=== PATIENT | male | born 1970 | race Caucasian/White ===

== ENCOUNTER 2018-03-23 08:15 | Outpatient (CLI) | payer MEDICARE, MEDICAID, SELFPAY ==
[2018-03-23 09:55] LABS: Abs Immature Grans 0.01 k/cumm (0.0-0.09); Absolute Basophil Count 0.03 k/cumm (0.0-0.2); Absolute Eosinophil Count 0.26 k/cumm (0.0-0.7); Absolute Lymphocyte Count 2.12 k/cumm (1.2-3.4); Absolute Monocyte Count 0.71 k/cumm (0.11-0.7); Absolute Neutrophil Count 4.84 k/cumm (1.2-6.7); Basophils % 0.4; Eosinophils % 3.3; HGB 16.7 g/dL (13.5-17.5); Immature Grans % 0.1; Lymphocytes % 26.6; Mean Corp. HGB Concentration 34.1 g/dL (32.0-36.0); Mean Corpuscular Volume 96.8 fL (80-95); Mean Platelet Volume 9.5 fL (8.0-11.0); Monocytes % 8.9; Neutrophils % 60.7; Platelet Count 252 x1000/uL (130-400); RBC 5.06 m/cumm (4.50-6.00); RBC Distribution Width 13.5 % (11.8-14.1); White Blood Cell Count 7.97 k/cumm (4.4-10.8)
[2018-03-23 10:30] LABS: ALT 45 U/L (12-78); AST 19 U/L (15-37); Albumin 4.2 g/dL (3.4-5.0); Alkaline Phosphatase 65 U/L (46-116); Anion Gap 9.8 mmol/L (3-11); BUN 19 mg/dL (7-18); Bilirubin, Total 0.7 mg/dL (0.2-1.0); CO2 24.2 mmol/L (21.0-32.0); CREATININE 1.03 mg/dL (0.70-1.30); Chloride 102 mmol/L (98-107); Glucose 119 mg/dL (70-100); Potassium 4.2 mmol/L (3.5-5.1); Sodium 136 mmol/L (136-145); Total Protein 7.2 g/dL (6.4-8.2)
[2018-03-24 11:11] LABS: Syphilis Serology (RPR) Negative (Negative)
[2018-03-25 08:49] LABS: CD3 69 % (62-87); CD4 32 % (35-63); CD8 36 % (10-35)
[2018-03-25 21:24] LABS: HBV DNA Detect/Quant, PCR Undetected IU/mL (Undetected)
[2018-03-26 14:50] LABS: HIV-1 RNA Quantification <20 copies/mL (UNDECT)
== END 2018-03-23 08:35 ==
PROVIDERS: PCP Physician Assistant Medical; Visit Provider Nurse Practitioner Family
DX: B20 Human immunodeficiency virus [HIV] disease (principal); Z79.899 Other long term (current) drug therapy; B18.1 Chronic viral hepatitis B without delta-agent; B18.2 Chronic viral hepatitis C
CPT/HCPCS: 36415; 80053; 87517; 87536; 85025; 86359; 86360; 86592

== ENCOUNTER 2018-05-22 15:45 | Outpatient (CLI) | payer MEDICARE, MEDICAID, SELFPAY ==
--- NOTE | 2018-05-22 16:33 | W.CCNOTE ---
Date of service: 05/22/18 Time of Service: 16:33 Comprehensive Care Clinic Note Note: [facility] [address] [place] [address] Comprehensive Care Clinic [facility] Follow Up Visit Name: Guanakito Cedillo Date of : 1970 Date of Service: 05/22/2018 SUBJECTIVE: Guanakito is here for F/U and to get an injection of flu vaccine. Over all he is feeling well and taking his medications as prescribed. He was last seen here on March and had blood work done on 03/23/18. HIV VL <20, HBV VL <10, no HCV VL was repeated ? last one was <20 on 02/22/17. CD4 count this March was 676 with a % of 32. He is not having any adverse SEs from the medications. He is taking his BP meds and has had F/U at his PCPs office. He also needa hepatitis A vaccine as he never mounted immunity to HAV and is chronic active HBV. He was + for HCV but has had an undetectable viral load for years now. No Tx Hx for the HCV. ROS: General: Sleep is good, weight is stable, denies night sweats. Appetite is ?too good.? HEENT: No sore throat or nasal congestion Chest: Has a smokers cough but is smoking less, no about ? ppd. CARDIAC: No palpitations, denies chest pain. 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 (this was the result of years of Fluconazole.) Psych: Still distraught about underbidding his jobs and still not getting paid on time by some customers. Blames himself. Is taking one non-paying person to court. Stressful. Denies HI/SI. Update Past Medical/Surgical/Psychiatric History: 05/22/2017 had a Hemorrhoidectomy by Dr. Martínez Lemons at [facility] ? path negative for dysplasia. Allergies/Sensitivities: NKDA Current Medications: - Odefsey (rilpivirine, emtricitabine, tenofovir alafenamide fumarate) 25/200/25 mg a day po - Isentress HD (raltegravir) 600mg ? 2 tabs daily po - Zestaril (lisinopril) 10 mg po daily - Cardura (doxazosin) 4mg po daily - Vitamin D3 400 units daily Social History: Lives with his custodial partner, Fernando, in the home they own in [place], [place]. 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 Has a menagerie of animals including 2 dogs, a cat, a cockatiel and an indoor duck and chicken, Denise who has one leg, and many outdoor ducks and chickens. Income: $34,000/year for family of 2 Health Insurance: [place] Medicare, Medicaid, AMAP, DCAP, No other payment source, has had no Issues Substance Abuse History: in the very remote past Tobacco: Smoker: + Type: cigarettes, Amount: keeping it down to 1/2 ppd, was 1 ? ppd MJ: Smoke/Vap/Edibles: vaping MJ ETOH: Weekly once or twice, Type: Amount: rare now Illicit Drug Use: None Immunization History: Tetanus (TDAP) given on 10/02/2011 Hepatitis A #1 on 06/23/2002, #2 on 09/28/2002, #3 on 03/19/2013 ? no antibody formation ? needs booster and given today Flu Vaccine: gets yearly - needs for this season and given today Pneumovax: #1 on 04/24/2001 #2 on 04/22/2007; Prevnar 13 #1 given 06/28/2015 Other: He would be eligible for the Menactra and Shingrix and is amenable to getting these. Health Maintenance/ID Screening: PPD: last neg was 03/12/2017. CXR: 06/08/2012 F/U nodule and apical scarring RUL - stable. Chest CT scan done on 05/23/2011 w guided Bx of nodule ? path: AFB but cultures negative per Dr. Franz?s notes. PAP: Anal: none Mammograms: none Colonoscopy: done on 09/12/[address] Bharat Iniguez ? path: 1 tiny leiomyoma & 1 Hyperplastic polyp. F/U due 2019 GC/Chlamydia Screening: neg 11/15/2015 OBJECTIVE Temp: 98.2 Pulse: 72 Resp: 16 BP: 126/76 General: AINAD, WT:180# Skin: clear ? professional tattoos Eyes: non icteric Cardiac: RRR, No MCRG Chest/Lungs: Few wheezes at the bases. No crackles. Sounds heard in all lobes. Abdomen: Soft, Nd, NT, No OGM Extremities: No edema Neuro: Gait strong and steady Psych: AAOx4, speech clear and coherent, eye contact good. ASSESSMENT/PLAN: 1. HIV/AIDS ? Lab work stable w good CD4 and undetectable viral load. No change in medications. Refills called to the pharmacy. F/U in 3 months. 2. 2. HM ? Flu and Hepatitis A vaccine today. Influenza [facility] Lot # [id number], exp 01/10/19, IM RA HAV vaccine [facility] Lot # [id number], exp 06/03/20 [place] visit scheduled: Due early in 2018 Lab Work: Will be due in 3 months. ASO referral: Has established a relationship w [facility] Provider of Care: Hanane Pollock NP
--- NOTE | 2018-05-25 16:34 | CCCE_ITS ---
Date of service: 05/22/18 Time of Service: 16:33 Comprehensive Care Clinic Note Note: [facility] [address] [place] [address] [facility] Follow Up Visit Name: Guanakito Cedillo Date of : 1970 Date of Service: 05/22/2018 SUBJECTIVE: Guanakito is here for F/U and to get an injection of flu vaccine. Over all he is feeling well and taking his medications as prescribed. He was last seen here on March and had blood work done on 03/23/18. HIV VL <20, HBV VL < 10, no HCV VL was repeated ? last one was <20 on 02/22/17. CD4 count this March was 676 with a % of 32. He is not having any adverse SEs from the medications. He is taking his BP meds and has had F/U at his PCPs office. He also needa hepatitis A vaccine as he never mounted immunity to HAV and is chronic active HBV. He was + for HCV but has had an undetectable viral load for years now. No Tx Hx for the HCV. ROS: General: Sleep is good, weight is stable, denies night sweats. Appetite is ?too good.? HEENT: No sore throat or nasal congestion Chest: Has a smokers cough but is smoking less, no about ? ppd. CARDIAC: No palpitations, denies chest pain. 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 (this was the result of years of Fluconazole.) Psych: Still distraught about underbidding his jobs and still not getting paid on time by some customers. Blames himself. Is taking one non-paying person to court. Stressful. Denies HI/SI. Update Past Medical/Surgical/Psychiatric History: 05/22/2017 [address] a [address]ctomy by [address] Martínez Lemons at [facility] ? path negative for dysplasia. Allergies/Sensitivities: NKDA Current Medications: - Odefsey (rilpivirine, emtricitabine, tenofovir alafenamide fumarate) 25/200/ 25 mg a day po - Isentress HD (raltegravir) 600mg ? 2 tabs daily po - Zestaril (lisinopril) 10 mg po daily - Cardura (doxazosin) 4mg po daily - Vitamin D3 400 units daily Social History: Lives with his [facility] partner, Fernando, in the home they own in [place], [place]. 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 Has a menagerie of animals including 2 dogs, a cat, a cockatiel and an indoor duck and chicken, Denise who has one leg, and many outdoor ducks and chickens. Income: $34,000/year for family of 2 Health Insurance: [place] Medicare, Medicaid, AMAP, DCAP, No other payment source, has had no Issues Substance Abuse History: in the very remote past Tobacco: Smoker: + Type: cigarettes, Amount: keeping it down to 1/2 ppd, was 1 ? ppd MJ: Smoke/Vap/Edibles: vaping MJ ETOH: Weekly once or twice, Type: Amount: rare now Illicit Drug Use: None Immunization History: Tetanus (TDAP) given on 10/02/2011 Hepatitis A #1 on 06/23/2002, #2 on 09/28/2002, #3 on 03/19/2013 ? no antibody formation ? needs booster and given today Flu Vaccine: gets yearly - needs for this season and given today Pneumovax: #1 on 04/24/2001 #2 on 04/22/2007; Prevnar 13 #1 given 06/28/2015 Other: He would be eligible for the Menactra and Shingrix and is amenable to getting these. Health Maintenance/ID Screening: PPD: last neg was 03/12/2017. CXR: 06/08/2012 F/U nodule and apical scarring RUL - stable. Chest CT scan done on 05/23/2011 w guided Bx of nodule ? path: AFB but cultures negative per Dr. Franz?s notes. PAP: Anal: none Mammograms: none Colonoscopy: done on 09/12/[address] Bharat Iniguez ? path: 1 tiny leiomyoma & 1 Hyperplastic polyp. F/U due 2019 GC/Chlamydia Screening: neg 11/15/2015 OBJECTIVE Temp: 98.2 Pulse: 72 Resp: 16 BP: 126/76 General: AINAD, WT:180# Skin: clear ? professional tattoos Eyes: non icteric Cardiac: RRR, No MCRG Chest/Lungs: Few wheezes at the bases. No crackles. Sounds heard in all lobes. Abdomen: Soft, Nd, NT, No OGM Extremities: No edema Neuro: Gait strong and steady Psych: AAOx4, speech clear and coherent, eye contact good. ASSESSMENT/PLAN: 1. HIV/AIDS ? Lab work stable w good CD4 and undetectable viral load. No change in medications. Refills called to the pharmacy. F/U in 3 months. 2. 2. HM ? Flu and Hepatitis A vaccine today. Influenza [facility] Lot # [id number], exp 01/10/19, IM RA HAV vaccine [facility] Lot # [id number], exp 06/03/20 [place] visit scheduled: Due early in 2018 Lab Work: Will be due in 3 months. ASO referral: Has established a relationship w [facility] Provider of Care: Hanane Pollock NP
== END 2018-05-22 16:05 ==
PROVIDERS: PCP Physician Assistant Medical; Visit Provider Nurse Practitioner Family
DX: B20 Human immunodeficiency virus [HIV] disease (principal); Z79.899 Other long term (current) drug therapy; Z23 Encounter for immunization
CPT/HCPCS: 90471; 90472; 90632; 90686; 99213

== ENCOUNTER 2018-08-27 08:17 | Outpatient (CLI) | payer MEDICARE, MEDICAID, SELFPAY ==
[2018-08-27 08:58] LABS: Abs Immature Grans 0.01 k/cumm (0.0-0.09); Absolute Basophil Count 0.04 k/cumm (0.0-0.2); Absolute Eosinophil Count 0.24 k/cumm (0.0-0.7); Absolute Lymphocyte Count 2.17 k/cumm (1.2-3.4); Absolute Monocyte Count 0.68 k/cumm (0.11-0.7); Absolute Neutrophil Count 5.51 k/cumm (1.2-6.7); Basophils % 0.5; Eosinophils % 2.8; HCT 47.5 % (40.0-50.0); HGB 16.2 g/dL (13.5-17.5); Immature Grans % 0.1; Lymphocytes % 25.1; Mean Corp. HGB Concentration 34.1 g/dL (32.0-36.0); Mean Corpuscular Hemoglobin 33.4 pg (27.0-33.0); Mean Corpuscular Volume 97.9 fL (80-95); Mean Platelet Volume 9.4 fL (8.0-11.0); Monocytes % 7.9; Neutrophils % 63.6; Platelet Count 191 x1000/uL (130-400); RBC 4.85 m/cumm (4.50-6.00); RBC Distribution Width 13.8 % (11.8-14.1); White Blood Cell Count 8.65 k/cumm (4.4-10.8)
[2018-08-27 10:14] LABS: ALT 51 U/L (12-78); AST 20 U/L (15-37); Albumin 4.1 g/dL (3.4-5.0); Alkaline Phosphatase 65 U/L (46-116); Anion Gap 9.5 mmol/L (3-11); BUN 21 mg/dL (7-18); Bilirubin, Total 0.7 mg/dL (0.2-1.0); CO2 26.5 mmol/L (21.0-32.0); CREATININE 1.07 mg/dL (0.70-1.30); Calcium 8.9 mg/dL (8.5-10.1); Chloride 104 mmol/L (98-107); Cholesterol 192 mg/dL (50-200); GGT 35 U/L (15-85); Glucose 99 mg/dL (70-100); HDL Cholesterol 38 mg/dL (40-60); LDL CHOLESTEROL 126 mg/dL (<100); Potassium 4.6 mmol/L (3.5-5.1); Sodium 140 mmol/L (136-145); Total Protein 7.2 g/dL (6.4-8.2); Triglyceride 153 mg/dL (30-150)
[2018-08-28 15:38] LABS: CD3 73 % (62-87); CD4 33 % (35-63); CD8 39 % (10-35)
[2018-08-31 15:27] LABS: HIV-1 RNA Quantification <20 copies/mL (UNDECT)
== END 2018-08-27 08:37 ==
PROVIDERS: PCP Physician Assistant Medical; Visit Provider Internal Medicine Infectious Disease
DX: B20 Human immunodeficiency virus [HIV] disease (principal); B18.2 Chronic viral hepatitis C; B18.1 Chronic viral hepatitis B without delta-agent; Z79.899 Other long term (current) drug therapy
CPT/HCPCS: 36415; 80053; 80061; 83721; 87536; 82977; 85025; 86359; 86360

== ENCOUNTER 2018-08-31 09:00 | Outpatient (CLI) | payer MEDICARE, MEDICAID, SELFPAY | END 2018-08-31 09:20 | PROVIDERS: PCP Physician Assistant Medical; Referring Provider Nurse Practitioner Family; Visit Provider Internal Medicine Infectious Disease | DX: B20 Human immunodeficiency virus [HIV] disease (principal); B18.2 Chronic viral hepatitis C; B18.1 Chronic viral hepatitis B without delta-agent; I10 Essential (primary) hypertension; F17.210 Nicotine dependence, cigarettes, uncomplicated | CPT/HCPCS: 99215 ==

== ENCOUNTER 2018-10-27 10:05 | Outpatient (REF) | payer MEDICARE, MEDICAID, SELFPAY ==
[2018-10-27 22:08] LABS: Cholesterol 174 mg/dL (50-200); Glucose 106 mg/dL (70-100); HDL Cholesterol 28 mg/dL (40-60); LDL CHOLESTEROL 106 mg/dL (<100); Triglyceride 215 mg/dL (30-150)
== END 2018-10-27 10:25 ==
LOC: NCHCN 10:05
PROVIDERS: PCP Physician Assistant Medical; Visit Provider Nurse Practitioner Family
DX: I10 Essential (primary) hypertension (principal); E78.5 Hyperlipidemia, unspecified; B18.2 Chronic viral hepatitis C; B18.1 Chronic viral hepatitis B without delta-agent; B20 Human immunodeficiency virus [HIV] disease; F17.210 Nicotine dependence, cigarettes, uncomplicated
CPT/HCPCS: 80061; 82947; 83721

== ENCOUNTER 2019-02-24 15:51 | Outpatient (CLI) | payer MEDICARE, MEDICAID, SELFPAY ==
[2019-02-24 19:46] LABS: ALT 49 U/L (12-78); AST 18 U/L (15-37); Albumin 4.4 g/dL (3.4-5.0); Alkaline Phosphatase 77 U/L (46-116); Anion Gap 12.6 mmol/L (3-11); BUN 22 mg/dL (7-18); Bilirubin, Total 0.5 mg/dL (0.2-1.0); CO2 23.4 mmol/L (21.0-32.0); CREATININE 1.18 mg/dL (0.70-1.30); Chloride 104 mmol/L (98-107); Glucose 96 mg/dL (70-100); Potassium 4.4 mmol/L (3.5-5.1); Sodium 140 mmol/L (136-145); Total Protein 7.4 g/dL (6.4-8.2)
[2019-02-27 12:59] LABS: HBV DNA Detect/Quant, PCR Undetected IU/mL (Undetected)
== END 2019-02-24 16:11 ==
PROVIDERS: PCP Physician Assistant Medical; Visit Provider Internal Medicine Infectious Disease
DX: B20 Human immunodeficiency virus [HIV] disease (principal); B18.1 Chronic viral hepatitis B without delta-agent; Z79.899 Other long term (current) drug therapy
CPT/HCPCS: 36415; 80053; 87517; 87536

== ENCOUNTER 2019-02-25 11:45 | Outpatient (CLI) | payer MEDICARE, MEDICAID, SELFPAY ==
[2019-03-01 16:39] LABS: HIV-1 RNA Quantification Undetected copies/mL (UNDECT)
== END 2019-02-25 12:05 ==
PROVIDERS: PCP Internal Medicine Infectious Disease; Visit Provider Internal Medicine Infectious Disease
DX: B20 Human immunodeficiency virus [HIV] disease (principal); B18.1 Chronic viral hepatitis B without delta-agent; Z79.899 Other long term (current) drug therapy
CPT/HCPCS: 87536

== ENCOUNTER 2019-03-01 09:14 | Outpatient (CLI) | payer MEDICARE, MEDICAID, SELFPAY | END 2019-03-01 09:34 | PROVIDERS: PCP Internal Medicine Infectious Disease; Referring Provider Nurse Practitioner Family; Visit Provider Internal Medicine Infectious Disease | DX: B20 Human immunodeficiency virus [HIV] disease (principal); B18.1 Chronic viral hepatitis B without delta-agent; B18.2 Chronic viral hepatitis C; Z79.899 Other long term (current) drug therapy | CPT/HCPCS: 99215 ==

== ENCOUNTER 2019-03-29 09:10 | Outpatient (REF) | payer MEDICARE, MEDICAID, SELFPAY ==
[2019-03-29 22:22] LABS: Anion Gap 10.8 mmol/L (3-11); BUN 20 mg/dL (7-18); CO2 24.2 mmol/L (21.0-32.0); CREATININE 1.06 mg/dL (0.70-1.30); Calcium 8.9 mg/dL (8.5-10.1); Chloride 105 mmol/L (98-107); Glucose 101 mg/dL (70-100); Potassium 4.8 mmol/L (3.5-5.1); Sodium 140 mmol/L (136-145)
== END 2019-03-29 09:30 ==
LOC: NCHCN 09:10
PROVIDERS: PCP Internal Medicine Infectious Disease; Visit Provider Nurse Practitioner Family
DX: I10 Essential (primary) hypertension (principal)
CPT/HCPCS: 80048

== ENCOUNTER → 2019-04-01 14:18 | Outpatient (BNVA) | payer MEDICARE, MEDICAID, SELFPAY | PROVIDERS: PCP Nurse Practitioner Family; Referring Provider Internal Medicine Infectious Disease; Visit Provider Physical Therapy Assistant | DX: Z12.11 Encounter for screening for malignant neoplasm of colon (principal); I10 Essential (primary) hypertension ==

== ENCOUNTER 2019-04-23 06:37 | Day surgery (SDC) | payer MEDICARE, MEDICAID, SELFPAY ==
[2019-04-23 07:00] VITALS: BP 152/102; PULSE 73; RESP 16; TEMP 36.5; O2SAT 97
--- NOTE | 2019-04-23 08:10 | W.PM.DSUDISC ---
Discharge Plan Disposition Patient Disposition: HOME Condition: Good Discharge Details Reason For Visit: Colonoscopy Attending Provider: Bronwyn Herring Primary Care Provider: Sabrina Jerome Home Meds and New Rx's Prescriptions: Discontinued polyethylene glycol 3350 17 gram/dose powder 238 g PO ONCE Qty: 238 RF: 0 bisacodyl [Dulcolax (bisacodyl)] 5 mg tablet,delayed release (DR/EC) 5 mg PO ONCE Qty: 4 RF: 0 No Action Odefsey 1 EACH tablet 1 ea PO DAILY RF: 0 lisinopril 10 mg tablet 5 mg PO DAILY RF: 0 Isentress 400 MG tablet 800 mg PO DAILY RF: 0 ibuprofen 600 MG tablet 600 mg PO Q6H PRN PRNQty: 30 RF: 1 Discharge Instructions Additional Instructions: Findings: Your colonoscopy was normal. Follow up: Plan for routine screening in 10 years unless new symptoms arise. Please call if you develop: fevers >101.5 Nausea or Vomiting Abdominal pain that is not transient DAY SURGERY UNIT POST COLONOSCOPY INSTRUCTIONS 1. Because there will be medication in your system for the next 24 hours, you may feel a little sleepy. Your coordination will be affected. Therefore: a. Do not drive or operate dangerous equipment for 24 hours. b. Do not drink alcohol beverages for 24 hours (not even beer). c. Plan to go home and rest for the day. 2. Generally there are no restrictions on your activity after a day or so has gone by, but you may feel a bit fatigued for a few days. 3 After you arrive home you may have a light meal and return to a normal diet as you can tolerate it without feeling sick to your stomach. 4. After surgery, you may feel pain or discomfort. This should be only transient, but if it persists please contact your doctor. 5. If there are any questions regarding the findings of your procedure, please feel free to contact your doctor. 6. If you are unable to contact your doctor with a problem, contact the hospital at [phone]. 7. Continue all your regular medications unless directed otherwise. I understand the above instructions and have no questions. Signature of Patient or Responsible Adult Escort Date/Time Name of Responsible Adult Escort Signature of Nurse Date/Time Activity:: Activity as Tolerated Diet:: As Tolerated Discharge Orders Discharge Orders: Discharge Order (Routine); Ordered 04/23/19 Ordered By: Bronwyn Herring DS: Diagnosis Discharge Diagnosis (1) Colon cancer screening: Status: Acute
[2019-04-23] MEDS: Lactated Ringers 1,000 ML 80 ML IV (08:12)
[2019-04-23 09:17] VITALS: BP 145/89; PULSE 62; RESP 18; TEMP 36.7; O2SAT 100
--- NOTE | 2019-04-23 10:45 | COLE_ITS ---
DATE OF PROCEDURE: April 23, 2019 PREOPERATIVE DIAGNOSIS: Screening. POSTOPERATIVE DIAGNOSIS: Normal colon. PROCEDURE: Colonoscopy. SURGEON: Bronwyn Herring M.D. ANESTHESIA: General. INDICATIONS: This is a 49-year-old man who presents for routine colonoscopy. His last colonoscopy i 2008 showed a tiny leiomyoma and a hyperplastic polyp. He has also had an internal hemorrhoid band ing performed. PROCEDURE: He was placed in the left Galeana position. Propofol was titrated to sedation. Digital rec kameron examination revealed no abnormalities. The scope was advanced to the cecum without difficulty. The ileocecal valve and appendiceal orifice were clearly identified. His prep was good. The scope w as slowly withdrawn with no abnormalities seen within the ascending, transverse, descending, sigmoid colon or rectum, including on retroflex view. He tolerated the procedure well and was stable to josie very. He will need a follow-up screening again in ten years, or sooner as symptoms indicate. cc: Sabrina Jerome N.P.
== END 2019-04-23 09:30 | disposition home or self-care (01) ==
PROVIDERS: PCP Nurse Practitioner Family; Visit Provider Surgery
PROC: 0DJD8ZZ Inspection of Lower Intestinal Tract, Via Natural or Artificial Opening Endoscopic (ICD-10-PCS; CPT 45378; principal; 2019-04-23 08:15)
DX: Z12.11 Encounter for screening for malignant neoplasm of colon (principal); I10 Essential (primary) hypertension; Z87.19 Personal history of other diseases of the digestive system
CPT/HCPCS: G0121

== ENCOUNTER 2019-04-30 12:55 | Outpatient (CLI) | payer MEDICARE, MEDICAID, SELFPAY ==
--- NOTE | 2019-04-30 13:19 | CCCE_ITS ---
Date of service: 04/30/19 Time of Service: 13:20
--- NOTE | 2019-04-30 13:19 | W.CCNOTE ---
Date of service: 04/30/19 Time of Service: 13:20
== END 2019-04-30 13:15 ==
PROVIDERS: PCP Nurse Practitioner Family; Visit Provider Nurse Practitioner Family
DX: B20 Human immunodeficiency virus [HIV] disease (principal); Z79.899 Other long term (current) drug therapy; R53.83 Other fatigue; Z23 Encounter for immunization
CPT/HCPCS: 90471; 90472; 90686; 99213

== ENCOUNTER 2019-05-17 12:49 | Outpatient (CLI) | payer MEDICARE, MEDICAID, SELFPAY ==
--- NOTE | 2019-05-18 15:12 | W.CCNOTE ---
Date of service: 05/17/19 Time of Service: 13:12 Comprehensive Care Clinic Note Note: [facility] Acute Visit Name: Guanakito Cedillo : Date: 05/17/2019 Subjective CC/HPI: Guanakito visited his dentist for regular checkup and cleaning and was told there was a suspicious lesion on the roof of his mouth. He has also been told there was a ?white spot? on the roof of the mouth about 6 months earlier by another dental practitioner. He was advised to have it valuated by a specialist and consider having it removed. Guanakito unfortunately has not been able to stop smoking but has reduced from 1 ? ppd to about 1 ppd. He has been smoking since he was a teen. Guanakito has been feeling well otherwise and is taking his HIV meds as ordered not having missed any doses. His last HIV Viral Load was undetectable and he has been undetectable for many years. His CD4 count was in the 600s last time checked with a good %. Allergies: SULFA, PCN ? rash, swelling. Chantix ? neurological side effects. Medications: Odefsey (txknrsaejfzxe-xlvrjszgfzt-ojndxdopv alafenam) 200mg/25mg/25mg tab 1 po daily, Isentress HD (raltegravir 600mg tab 2 po daily, doxazosin 4mg 1 po daily, Lisinopril 10 mg 1 po daily. ROS: Denies weight loss, fever, chills, rarely gets night sweats now (was more common years ago p HIV Dx), oral pain or sensation of swelling, difficulty swallowing, neck swelling or stiffness. No N/V/D, rashes, paresthesia, weakness. Has some dyspnea w extreme exertion and a smokers cough. No hemoptysis. Past Medical Hx: Dx w HIV, HBV and HCV in 2001 ? 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 HBV neg viral load w Tenofovir. HCV undetectable w/o treatment. Hyperplastic Rectal Polyp ? due and scheduled soon for F/U colo. Early Glaucoma and sees Ophthalmology yearly. HTN ? RXd x approx. 4 years. Surgical: Lip Lesion removed at [facility] in 2003 and Dx as ?irritated SK?. Social Hx: Lives with partner in their own home in [place], [place]. 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 His partner, Fernando, works in [place] and they have dogs, cats, chickens and ducks, no children. Fm Hx: HTN, Cancer Objective VS: Temp: 98.5 Pulse: 72 Resp: 16 BP: 136/80 PE: Face w symmetry -No lip lesion, there is a rice grain size, well circumscribed, pearly white nodular lesion in the mid left soft palette that is not removable without erythema or selling in the area. -No other oral lesions appreciated. -Uvula midline, gag intact, neck supple, no palpable cervical nodes. -Lungs w some rhonchi at the bases which clears with cough ? ow clear and heard in all lobes. Assessment/Plan -Rice size well circumscribed soft palette lesion needing further evaluation with probable removal and pathological examination in a long time smoker. Refer to ENT and will contact his PCP, fax this note and request a referral. An Appointment is set up with Dr. Leal for 06/14/2019 at 10:30AM. Guanakito is notified of the appointment. -Other medical problems ? No change in medications and he is not due for HIV F/U until after the first of the year. -Smoker ? we discussed again the need for smoking cessation and he is very aware of the risks. Has desires at times to quit but feels he cannot do it if his partner continues smoking and he is smelling it, even if Fernando doesn?t smoke in the house. He will continue to contemplate this and discuss their both quitting together for a better chance at success.
--- NOTE | 2019-05-18 15:29 | W.CCNOTE ---
Date of service: 04/30/19 Time of Service: 15:29 Comprehensive Care Clinic Note Note: [facility] [address] [place] [address] THIS IS THE NOTE FROM THE 04/30/2019 ENCOUNTER - the previous registration did not capture the note. [facility] Follow Up Visit Name: Guanakito Cedillo Date of : 1970 Date of Service: 04/30/2019 SUBJECTIVE: Guanakito is here today because he has felt fatigued and achy the past few days and he was due to get flu vaccine today. He is not sure he should get it. He is also due to have the first meningitis B vaccine. He states he has not had fever or chills but did have a night sweat last night. It is not unusual for him to have an isolated night sweat but since he was feeling ?punky? he thought he should be checked. He started a new job that is requiring 10 hour days 6 days a week. He has been doing this for the past two weeks and is feeling a bit worn out from it as it has been a long time since he has labored this long a stretch daily. He feels he is still building up to being in ?full shape for it?. 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 ROS: Some fatigue the last 2 days and took off work today to rest ? feels better already having slept in this morning. Denies fever, chills and has an isolated night sweat last night. No URI symptoms, has smokers cough but nothing new, no hemoptysis, no chest pain or palpitations, Denies N/V/D or other GI symptoms. No paresthesia, weakness, swelling, rash. Update Past Medical/Surgical/Psychiatric History: Nothing new. Says he needs to reschedule the colonoscopy he was to have had done soon. Allergies/Sensitivities: Sulfa, PCNs - Chantix - neuro reaction Current Medications: Odefsey (qakocjdhekllq-gcurhtxbtfg-ldtwfdvff alafenam) 200mg/25mg/25mg tab 1 po daily, Isentress HD (raltegravir 600mg tab 2 po daily, doxazosin 4mg 1 po daily, Lisinopril 10 mg 1 po daily. 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 Immunization History: Flu Vaccine: needs today Other: meningitis B ? to start today Health Maintenance/ID Screening: UTD except Colonoscopy: needs as due this year. OBJECTIVE Last viral load in February was undetectable Temp: 97.5 Pulse: 70 Resp: 16 BP: 132/80 General: INAD, AAOx4 Skin: W/D clear Eyes: non icteric Cardiac: RRR No MCRG Chest/Lungs: few scattered wheezes at bases that clear w deep breathing Abdomen: NABS, ND, NT Extremities: no edema Neuro: gait strong and steady ASSESSMENT: stable HIV disease, no evidence of infectious illness currently ? fatigue most likely due to increased work demands. Health maintenance. PLAN: No change in his antiretroviral meds or need for additional medications. Flu vaccine given in the RA and meningitis B vaccine in the left arm. He will need a second in the series of 2 meningitis vaccine when he returns for F/U at [facility] in August along with a second Singrix vaccine. 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
== END 2019-05-17 13:09 ==
PROVIDERS: PCP Nurse Practitioner Family; Visit Provider Nurse Practitioner Family
DX: B20 Human immunodeficiency virus [HIV] disease (principal); F17.210 Nicotine dependence, cigarettes, uncomplicated; K13.79 Other lesions of oral mucosa; Z79.899 Other long term (current) drug therapy
CPT/HCPCS: 99213

== ENCOUNTER 2019-06-14 11:48 | Outpatient (REF) | payer MEDICARE, MEDICAID, SELFPAY ==
--- NOTE | 2019-06-14 10:55 | ORMUBX_PTH ---
PATIENT: Guanakito Cedillo LOC: N U#:[id number] AGE/SX: 49/M ROOM: RE06/14/[address]: Santino Leal DO : 1970 BED: DIS: 06/14/2019 SPEC #: [id number] RECD: 06/14/19 18:29 STATUS: LUC REQ #: [id number] DANIEL: 06/14/19 10:[address]: Santino Leal DEPT: Surgical Specimen RECD BY: Tamika Beckett ENTERED: 06/14/19 18:30 SP TYPE: ORMUBX OTHR DR: Sabrina Jerome Tissues: 1 - MUCOSA, NOS Procedures: GROSS AND MICRO LEVEL 4 Comments: [id number]
== END 2019-06-14 12:08 ==
LOC: LBN 11:48
PROVIDERS: PCP Nurse Practitioner Family; Visit Provider Otolaryngology Otolaryngology/Facial Plastic Surgery
DX: K13.79 Other lesions of oral mucosa (principal); Z21 Asymptomatic human immunodeficiency virus [HIV] infection status
CPT/HCPCS: 88305

== ENCOUNTER 2019-08-11 07:00 | Outpatient (CLI) | payer MEDICARE, MEDICAID, SELFPAY ==
[2019-08-11 07:29] LABS: Abs Immature Grans 0.04 k/cumm (0.0-0.09); Absolute Basophil Count 0.07 k/cumm (0.0-0.2); Absolute Eosinophil Count 0.25 k/cumm (0.0-0.7); Absolute Lymphocyte Count 2.85 k/cumm (1.2-3.4); Absolute Monocyte Count 0.79 k/cumm (0.11-0.7); Absolute Neutrophil Count 6.86 k/cumm (1.2-6.7); Basophils % 0.6; Eosinophils % 2.3; HCT 49.6 % (40.0-50.0); HGB 17.6 g/dL (13.5-17.5); Immature Grans % 0.4 %; Lymphocytes % 26.2; Mean Corp. HGB Concentration 35.5 g/dL (32.0-36.0); Mean Corpuscular Hemoglobin 33.8 pg (27.0-33.0); Mean Corpuscular Volume 95.4 fL (80-95); Mean Platelet Volume 9.2 fL (8.0-11.0); Monocytes % 7.3; Neutrophils % 63.2; Platelet Count 259 x1000/uL (130-400); RBC Distribution Width 13.5 % (11.8-14.1); White Blood Cell Count 10.86 k/cumm (4.4-10.8)
[2019-08-11 08:39] LABS: ALT 42 U/L (16-63); AST 15 U/L (15-37); Albumin 4.5 g/dL (3.4-5.0); Alkaline Phosphatase 66 U/L (46-116); Anion Gap 11.2 mmol/L (3-11); BUN 25 mg/dL (7-18); Bilirubin, Total 0.6 mg/dL (0.2-1.0); CO2 24.8 mmol/L (21.0-32.0); CREATININE 1.04 mg/dL (0.70-1.30); Calcium 9.1 mg/dL (8.5-10.1); Calculated LDL 150 mg/dL (<100); Chloride 103 mmol/L (98-107); Cholesterol 216 mg/dL (<200); Glucose 103 mg/dL (74-106); HDL Cholesterol 34 mg/dL (40-60); Potassium 4.6 mmol/L (3.5-5.1); Sodium 139 mmol/L (136-145); Total Protein 7.3 g/dL (6.4-8.2); Triglyceride 161 mg/dL (<150)
[2019-08-12 15:56] LABS: HIV-1 RNA Quantification 0 copies/mL (Undetected)
[2019-08-12 16:51] LABS: CD3 68 % (62-87); CD4 29 % (35-63); CD8 38 % (10-35)
[2019-08-13 13:56] LABS: TB Interpretation Negative (Negative); TB1 Ag minus Nil 0.02 IU/ml; TB2 Ag minus Nil 0.03 IU/mL
== END 2019-08-11 07:20 ==
PROVIDERS: PCP Nurse Practitioner Family; Visit Provider Nurse Practitioner Family
DX: B20 Human immunodeficiency virus [HIV] disease (principal); Z79.899 Other long term (current) drug therapy; F17.200 Nicotine dependence, unspecified, uncomplicated
CPT/HCPCS: 36415; 80053; 80061; 87536; 85025; 86359; 86360; 86480

== ENCOUNTER 2019-08-16 09:00 | Outpatient (CLI) | payer MEDICARE, MEDICAID, SELFPAY | END 2019-08-16 09:20 | PROVIDERS: PCP Nurse Practitioner Family; Referring Provider Nurse Practitioner Family; Visit Provider Internal Medicine Infectious Disease | DX: B20 Human immunodeficiency virus [HIV] disease (principal); Z79.899 Other long term (current) drug therapy; Z23 Encounter for immunization | CPT/HCPCS: 90471; 90750; 99215 ==

== ENCOUNTER 2019-11-29 10:34 | Outpatient (CLI) | payer MEDICARE, MEDICAID, SELFPAY ==
--- NOTE | 2019-11-29 12:48 | W.CCNOTE ---
Date of service: 11/29/19 Time of Service: 08:48 Comprehensive Care Clinic Note Note: [facility] [address] [place] [address] [facility] of [facility] Visit for Medical Follow Up Name: Guanakito Cedillo Date of : 1970 Primary Care Provider: Sabrina Jerome NP Date of Service: 11/29/2019 SUBJECTIVE CC: This is a follow up visit as Guanakito contacted this office 2 weeks ago C/O insomnia and was advised to try 25 mg or 50 mg of Benadryl at . He has been home bound since mid-September due to public health recommendations during the SARS-CoV-2 pandemic. 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 HPI: Guanakito says he is feeling well and the Benadryl did not help to restore restful sleep. He says he is getting about 3-4 hours of sleep at night and likes to get at least 6. He has been much more sedentary than usual since mid-September due to Stay Home/Stay Safe orders from the Governor. He has also been modifying his diet to reduce dietary fats and improve his cholesterol. His PCP wanted his to start a cholesterol lowering medication. I told him that I had spoken with her and recommended two different ones that would not interact with his HIV medications. He says he will go on the medication if diet changes do not improve the Lipids. ROS Constitutional: Good energy and appetite, sleep as above. Weight is stable. Skin: Denies rash Head: Denies trauma, head pain Eyes: Denies visual disturbance, has reading glasses Ear/Nose/Throat: Negative Mouth/Teeth: UTD w dental Neck: No pain or stiffness CV: Denies chest pain, pressure, palpitations Respiratory: Some smokers cough in the morning, denies dyspnea, hemoptysis GI: No N/V/D/C or rectal bleeding : Negative Musculoskeletal: Denies joint or back pain Endocrine: No polyuria, polydipsia; heat or cold intolerance Lymphatic: Has not noted any enlarged nodes Hematologic: No unusual bleeding, bruising Immunologic: CD4 count has never been below 200, no risk for OI Psychiatric: Denies Anxiety, Depression, SI/HI Allergies/Sensitivities: NKDA Current Medications: HIV medications - Carlenesey (relpivirine/emtricitabine/tenofivir alafenamide one a day) Isentress (raltegravir 600mg tabs ? 2 a day) BP medications: - Cardura (doxazosin 4mg a day) Prinivil (lisinopril 10 mg a day) Medical / Surgical History Update: Nothing new Psychiatric History Update: H/O anxiety/depression Social History Update: lives with his life partnerFernando Employment: independent [employer] ? not working now Health Insurance: Medicare and Medicaid Substance Use: no illicit drugs, smokes pot daily Tobacco: 1 ppd, down from 2 ppd ETOH: rare ? maybe a drink twice a month now Family History Update: Nothing new Immunization Needed? UTD Health Maintenance: sees PCP regularly OBJECTIVE Height: Weight: Temp: Pulse: Respirations: Blood Pressure: - Not measured, telelhealth General: Appears well Skin: clear Head: NC, NT Eyes: non icteric Psychiatric: - appearance: well dressed for weather - eye contact: good over the computer - attitude: Cooperative - speech: clear coherent - affect: normal - mood: euthymic - memory: intact - self-perception: normal - motor activity: normal - orientation: intact x4 - attention: normal - thought content: normal - perceptions: normal - judgement: intact - insight: good ASSESSMENT/PLAN HIV ? AIDS ? No signs of symptoms of adverse side effects. Doubt the insomnia has anything to do with a medication effect especially since these are not new medications for him. Insomnia ? This was not corrected by Benadryl. He is sedentary and now that he is going to be getting more physically active, which he is used to, he may sleep better. He will call and report in to me next week if he is sleeping better. MD visit scheduled: He will be due in December Lab work ordered: Due is December Provider of Care: Hanane Pollock, SANJEEV, TELEGRAPHIC TYPEWRITER OPERATOR CHIEF Signature: Date:
== END 2019-11-29 10:54 ==
PROVIDERS: PCP Nurse Practitioner Family; Visit Provider Nurse Practitioner Family
DX: B20 Human immunodeficiency virus [HIV] disease (principal); Z79.899 Other long term (current) drug therapy; G47.00 Insomnia, unspecified
CPT/HCPCS: 99213

== ENCOUNTER 2019-12-27 10:06 | Outpatient (REF) | payer MEDICARE, MEDICAID, SELFPAY ==
[2019-12-27 20:41] LABS: Uric Acid 6.6 mg/dL (3.5-7.2)
== END 2019-12-27 10:26 ==
LOC: NCHCN 10:06
PROVIDERS: PCP Nurse Practitioner Family; Visit Provider Nurse Practitioner Family
DX: I10 Essential (primary) hypertension (principal); E78.1 Pure hyperglyceridemia; M25.562 Pain in left knee
CPT/HCPCS: 84550

== ENCOUNTER 2020-01-24 08:43 | Outpatient (REF) | payer MEDICARE, MEDICAID, SELFPAY ==
[2020-01-24 23:55] LABS: ALT 37 U/L (16-63); AST 14 U/L (15-37); Anion Gap 11.1 mmol/L (3-11); BUN 18 mg/dL (7-18); CO2 23.9 mmol/L (21.0-32.0); CREATININE 0.89 mg/dL (0.70-1.30); Calcium 9.5 mg/dL (8.5-10.1); Chloride 104 mmol/L (98-107); Glucose 106 mg/dL (74-106); HDL Cholesterol 36 mg/dL (40-60); LDL CHOLESTEROL 66 mg/dL (<100); Potassium 4.7 mmol/L (3.5-5.1); Sodium 139 mmol/L (136-145)
[2020-01-25 00:22] LABS: Creatine Kinase 68 U/L (39-308)
== END 2020-01-24 09:03 ==
LOC: NCHCN 08:43
PROVIDERS: PCP Nurse Practitioner Family; Visit Provider Nurse Practitioner Family
DX: E78.1 Pure hyperglyceridemia (principal); I10 Essential (primary) hypertension
CPT/HCPCS: 80048; 82550; 83721; 83718; 84450; 84460

== ENCOUNTER 2020-03-02 01:16 | Outpatient (CLI) | payer MEDICARE, MEDICAID, SELFPAY ==
[2020-03-02 08:51] LABS: ALT 47 U/L (16-63); AST 16 U/L (15-37); Albumin 4.4 g/dL (3.4-5.0); Alkaline Phosphatase 65 U/L (46-116); Anion Gap 10.7 mmol/L (3-11); BUN 20 mg/dL (7-18); Bilirubin, Total 0.6 mg/dL (0.2-1.0); CO2 25.3 mmol/L (21.0-32.0); CREATININE 0.97 mg/dL (0.70-1.30); Calcium 9.3 mg/dL (8.5-10.1); Chloride 104 mmol/L (98-107); Glucose 137 mg/dL (74-106); Potassium 4.4 mmol/L (3.5-5.1); Sodium 140 mmol/L (136-145); Total Protein 7.1 g/dL (6.4-8.2)
[2020-03-04 15:35] LABS: HBV DNA Detect/Quant, PCR Undetected IU/mL (Undetected)
[2020-03-06 14:22] LABS: HIV 1 RNA Qualitative Undetected copies/mL (Undetected)
== END 2020-03-02 01:36 ==
PROVIDERS: PCP Physician Assistant; Visit Provider Nurse Practitioner Family
DX: B20 Human immunodeficiency virus [HIV] disease (principal); B18.1 Chronic viral hepatitis B without delta-agent; Z79.899 Other long term (current) drug therapy
CPT/HCPCS: 36415; 80053; 87517; 87536

== ENCOUNTER 2020-03-26 09:23 | Outpatient (CLI) | payer MEDICARE, MEDICAID, SELFPAY ==
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
== END 2020-03-26 09:43 ==
PROVIDERS: PCP Physician Assistant; Visit Provider Nurse Practitioner Family
DX: B20 Human immunodeficiency virus [HIV] disease (principal); B18.1 Chronic viral hepatitis B without delta-agent; Z79.899 Other long term (current) drug therapy; Z23 Encounter for immunization; R42 Dizziness and giddiness
CPT/HCPCS: 90471; 90686; 99214

== ENCOUNTER 2020-07-27 03:31 | Outpatient (CLI) | payer MEDICARE, MEDICAID, SELFPAY ==
[2020-07-27 17:17] LABS: Abs Immature Grans 0.05 10^3/uL (0.0-0.06); Absolute Lymphocyte Count 3.57 10^3/uL (1.2-3.4); Absolute Monocyte Count 1.12 10^3/uL (0.1-0.8); Absolute Neutrophil Count 8.56 10^3/uL (1.2-6.7); Basophils % 0.7; Eosinophils % 3.2; HCT 46.8 % (40.0-50.0); HGB 16.3 g/dL (13.5-17.5); Immature Grans % 0.4; Lymphocytes % 25.8; MCH 33.7 pg (27.0-33.0); MCHC 34.8 % (32.0-36.0); MCV 96.7 fL (80-95); MPV 9.8 fL (8.0-11.0); Monocytes % 8.1; Neutrophils % 61.8; Nucleated RBC 0 %; Platelet Count 237 10^3/uL (130-400); RBC 4.84 10^6/uL (4.36-5.78); RDW 12.8 % (11.8-14.1); RDW-SD 45.8 fL; WBC 13.85 10^3/uL (4.4-10.8)
[2020-07-27 17:18] LABS: Absolute Eosinophil Count 0.44 10^3/uL (0.0-0.7)
[2020-07-27 17:46] LABS: ALT 46 U/L (16-63); AST 21 U/L (15-37); Albumin 4.4 g/dL (3.4-5.0); Alkaline Phosphatase 58 U/L (46-116); BUN 17 mg/dL (7-18); Bilirubin, Total 0.8 mg/dL (0.2-1.0); Calcium 9.2 mg/dL (8.5-10.1); Calculated LDL 69 mg/dL (<100); Chloride 101 mmol/L (98-107); Cholesterol 136 mg/dL (<200); Glucose 81 mg/dL (74-106); HDL Cholesterol 44 mg/dL (40-60); Potassium 4.1 mmol/L (3.5-5.1); Sodium 137 mmol/L (136-145); Total Protein 7.3 g/dL (6.4-8.2); Triglyceride 116 mg/dL (<150)
[2020-07-27 17:47] LABS: Hemoglobin A1C 5.6 % (<5.7)
[2020-07-31 14:50] LABS: HCV RNA Qualitative Undetected (Undetected)
[2020-07-31 15:00] LABS: HIV 1 RNA Qualitative Undetected copies/mL (Undetected)
[2020-07-31 16:33] LABS: CD3 76 % (62-87); CD4 39 % (35-63); CD8 35 % (10-35)
[2020-08-01 17:51] LABS: HBV DNA Detect/Quant, PCR Undetected IU/mL (Undetected)
== END 2020-07-27 03:51 ==
PROVIDERS: PCP Nurse Practitioner Family; Visit Provider Nurse Practitioner Family
DX: B20 Human immunodeficiency virus [HIV] disease (principal); Z79.899 Other long term (current) drug therapy; B18.1 Chronic viral hepatitis B without delta-agent; B18.2 Chronic viral hepatitis C
CPT/HCPCS: 36415; 80053; 80061; 87517; 87522; 87536; 83036; 85025; 86359; 86360

== ENCOUNTER 2021-02-01 03:19 | Outpatient (CLI) | payer MEDICARE, MEDICAID, SELFPAY ==
[2021-02-01 13:04] LABS: ALT 39 U/L (16-63); AST 17 U/L (15-37); Albumin 4.3 g/dL (3.4-5.0); Alkaline Phosphatase 63 U/L (46-116); BUN 16 mg/dL (7-18); Bilirubin, Total 0.6 mg/dL (0.2-1.0); Calcium 9.1 mg/dL (8.5-10.1); Chloride 104 mmol/L (98-107); Glucose 146 mg/dL (74-106); Potassium 4.3 mmol/L (3.5-5.1); Sodium 140 mmol/L (136-145); Total Protein 6.8 g/dL (6.4-8.2)
[2021-02-01 13:05] LABS: Abs Immature Grans 0.01 10^3/uL (0.0-0.06); Absolute Basophil Count 0.05 10^3/uL (0.0-0.2); Absolute Eosinophil Count 0.23 10^3/uL (0.0-0.7); Absolute Lymphocyte Count 2.15 10^3/uL (1.2-3.4); Absolute Monocyte Count 0.59 10^3/uL (0.1-0.8); Absolute Neutrophil Count 4.49 10^3/uL (1.2-6.7); Basophils % 0.7; Eosinophils % 3.1; HCT 48.9 % (40.0-50.0); Immature Grans % 0.1; Lymphocytes % 28.6; MCH 33.7 pg (27.0-33.0); MCHC 34.8 % (32.0-36.0); MCV 96.8 fL (80-95); MPV 9.4 fL (8.0-11.0); Monocytes % 7.8; Neutrophils % 59.7; Nucleated RBC 0 %; Platelet Count 227 10^3/uL (130-400); RBC 5.05 10^6/uL (4.36-5.78); RDW 12.7 % (11.8-14.1); RDW-SD 45.6 fL; WBC 7.52 10^3/uL (4.4-10.8)
[2021-02-04 19:25] LABS: 4/8 Ratio 0.82 (>=0.90); Absolute CD3 1607 Cells/uL (840-2,669); Absolute CD8 878 Cells/uL (154-1,097); CD3 70 % (56-84); CD4 31 % (31-64); CD8 38 % (9-39)
[2021-02-05 15:13] LABS: HIV 1 RNA Qualitative Undetected copies/mL (Undetected)
== END 2021-02-01 03:20 | disposition home or self-care (01) ==
LOC: LOS 03:20
PROVIDERS: Internal Medicine Infectious Disease; PCP Nurse Practitioner Family; Visit Provider Nurse Practitioner Family
DX: B20 Human immunodeficiency virus [HIV] disease (principal); Z79.899 Other long term (current) drug therapy
CPT/HCPCS: 36415; 80053; 87536; 85025; 86359; 86360

== ENCOUNTER 2021-06-20 08:11 | Outpatient (REF) | payer MEDICARE, MEDICAID, SELFPAY ==
[2021-06-20 15:32] LABS: Calculated LDL 86 mg/dL (<100); Cholesterol 137 mg/dL (<200); HDL Cholesterol 40 mg/dL (40-60); Triglyceride 57 mg/dL (<150)
[2021-06-21 21:50] LABS: Hemoglobin A1C 5.7 % (<5.7)
== END 2021-06-20 08:12 | disposition home or self-care (01) ==
LOC: NCHCN 08:11
PROVIDERS: PCP Nurse Practitioner Family; Visit Provider Nurse Practitioner Family
DX: E78.1 Pure hyperglyceridemia (principal); I10 Essential (primary) hypertension
CPT/HCPCS: 80061; 83036

== ENCOUNTER 2021-07-23 03:56 | Outpatient (CLI) | payer MEDICARE, MEDICAID, SELFPAY ==
[2021-07-23 07:50] LABS: Abs Immature Grans 0.03 10^3/uL (0.0-0.06); Absolute Basophil Count 0.07 10^3/uL (0.0-0.2); Absolute Eosinophil Count 0.33 10^3/uL (0.0-0.7); Absolute Monocyte Count 0.65 10^3/uL (0.1-0.8); Basophils % 0.6; Eosinophils % 3.1; HGB 16.5 g/dL (13.5-17.5); Immature Grans % 0.3; Lymphocytes % 24.1; MCH 33.5 pg (27.0-33.0); MCHC 34.4 % (32.0-36.0); MCV 97.4 fL (80-95); Neutrophils % 65.9; Nucleated RBC 0 %; Platelet Count 222 10^3/uL (130-400); RBC 4.93 10^6/uL (4.36-5.78); RDW 12.9 % (11.8-14.1); RDW-SD 46.6 fL; WBC 10.78 10^3/uL (4.4-10.8)
[2021-07-23 08:13] LABS: ALT 43 U/L (16-63); AST 18 U/L (15-37); Albumin 4.1 g/dL (3.4-5.0); Alkaline Phosphatase 60 U/L (46-116); Anion Gap 8.3 mmol/L (3-11); BUN 22 mg/dL (7-18); Bilirubin, Total 0.7 mg/dL (0.2-1.0); CO2 25.7 mmol/L (21.0-32.0); CREATININE 0.9 mg/dL (0.70-1.30); Chloride 103 mmol/L (98-107); Glucose 110 mg/dL (74-106); Potassium 4.3 mmol/L (3.5-5.1); Sodium 137 mmol/L (136-145)
[2021-07-24 14:25] LABS: 4/8 Ratio 0.81 (>=0.90); Absolute CD3 2032 Cells/uL (840-2,669); Absolute CD8 1111 Cells/uL (154-1,097); CD3 69 % (56-84); CD4 31 % (31-64); CD8 38 % (9-39)
[2021-07-26 13:14] LABS: HIV 1 RNA Qualitative Undetected copies/mL (Undetected)
== END 2021-07-23 03:57 | disposition home or self-care (01) ==
LOC: LBO 03:56
PROVIDERS: PCP Nurse Practitioner Family; Visit Provider Nurse Practitioner Family
DX: B20 Human immunodeficiency virus [HIV] disease (principal); Z79.899 Other long term (current) drug therapy
CPT/HCPCS: 36415; 80053; 87536; 85025; 86359; 86360

== ENCOUNTER 2021-12-25 14:54 | Outpatient (REF) | payer MEDICARE, MEDICAID, SELFPAY ==
[2021-12-25 15:11] LABS: HCT 48.2 % (40.0-50.0); HGB 16.8 g/dL (13.5-17.5); MCH 33.5 pg (27.0-33.0); MCHC 34.9 % (32.0-36.0); MCV 96 fL (80-95); MPV 9.8 fL (8.0-11.0); Platelet Count 223 10^3/uL (130-400); RBC 5.02 10^6/uL (4.36-5.78); RDW-SD 46.6 fL
[2021-12-25 15:41] LABS: Creatine Kinase 92 U/L (39-308)
[2021-12-25 16:03] LABS: Hemoglobin A1C 5.7 % (<5.7)
== END 2021-12-25 14:55 | disposition home or self-care (01) ==
LOC: NCHCN 14:54
PROVIDERS: PCP Nurse Practitioner Family; Visit Provider Nurse Practitioner Family
DX: E78.1 Pure hyperglyceridemia (principal); R53.83 Other fatigue; R73.9 Hyperglycemia, unspecified
CPT/HCPCS: 82550; 85027; 83036; 84443

== ENCOUNTER 2022-02-18 07:11 | Emergency (ER) | payer MEDICARE, MEDICAID, SELFPAY ==
--- NOTE | 2022-02-18 07:15 | RT.EKG_ITS ---
APPROVED REPORT Exam: Resting ECG Reason for Exam: chest pressure Patient Location: E HR:49 bpm ECG Measurements Heart Rate 49 AXIS HI 177 P 38 QRSd 99 QRS 49 QT 403 T 36 QTc 363 Conclusion Sinus bradycardia...rate< 60 sinus bradycardia, normal axis, normal intervals
[2022-02-18 07:18] VITALS: BP 143/92; PULSE 55; RESP 18; TEMP 36.6; O2SAT 99
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
== END 2022-02-18 09:22 | disposition home or self-care (01) ==
PROVIDERS: Emergency Provider Physician Assistant; PCP Nurse Practitioner Family
DX: S20.211A Contusion of right front wall of thorax, initial encounter (principal); S50.811A Abrasion of right forearm, initial encounter; I10 Essential (primary) hypertension; F17.210 Nicotine dependence, cigarettes, uncomplicated; V23.4XXA Motorcycle driver injured in collision with car, pick-up truck or van in traffic accident, initial encounter
CPT/HCPCS: 93005; 99283; 71046; 71100; 93010; 99284

== ENCOUNTER → 2022-02-28 01:05 | Outpatient (CLI) | payer MEDICARE, MEDICAID, SELFPAY ==
--- NOTE | 2022-02-28 08:00 | ETT_ITS ---
APPROVED REPORT Exam: Exercise Treadmill Patient Location: Out-Patient Room/Bed: Stress Nurse: Amy Apodaca RN Ordering Provider:JAY GARCIA, Contact Number: [phone] BMI: 26.57 Baseline Rhythm: Sinus Rhythm Indications: Chest pressure. Medical History Cardiac Medications: Lisinopril. Rosuvastatin. Allergies: Chantix. Sulfa. Penicillin V Potassium. Cardiac Risk Factors: Family hx. HTN. HLD. Pre-diabetes. Current smoker. Previous Cardiac Procedures: None Pretest Chest Pain Characteristics: None Exercise History: Indeterminate Physical Disabilities: None Lung Sounds: Clear to auscultation Heart Sounds: Regular Stress Test Details Test: Exercise stress testing was performed using a Fernando protocol. Rest Stress HR Resting HR Supine: 57 bpm Max Heart Rate (APMHR): 166 bpm Resting HR Standin bpm Target HR (85% APMHR): 141 bpm Max HR Achieved: 117 bpm % of APMHR: 70 Recovery HR: 80 bpm HR response to stress: Normal HR response to stress BP Resting BP Supine: 142/91 mmHg Resting BP Standin/88 mmHg Max BP: 180/88 mmHg Recovery BP: 148/88 mmHg BP response to stress: Normal blood pressure response to stress. ECG Resting ECG: Sinus Bradycardia, , Clear, Sinus Rhythm, Sinus Bradycardia Ectopy: none Stress ECG: Sinus Tachycardia ST Change: Nondiagnostic low heart rate, No significant ST segment changes noted Arrhythmia: none Recovery ECG: Sinus Rhythm Recovery ST Change: No significant ST segment changes noted Recovery Arrhythmia: None Clinical Reason for Termination: Dizziness Stress Symptoms: Dizzy, short of breath Exercise duration: 8 min22 sec Highest Stage Reached: Stage 3: 3.4 mph at 14% grade. Exercise capacity: 10.16 METs Rate Pressure Product: 10800 Stress ECG Conclusion 1. Resting electrocardiogram was normal 2. Patient exercised on the Fernando protocol and completed a workload of 10.16 METS. The test was stop ped because of dizziness shortness of breath and patient request 3. Peak heart rate achieved was 70% of predicted for age 4. At that submaximal heart rate there was no evidence of myocardial ischemia, but technically test w as nondiagnostic due to inadequate heart rate 5. No dysrhythmias were seen Stress Test Summary STAGE Time (mins) Speed (mph) Grade (%) HR BP SpO2 SYMPTOMS METS Supine 57 142/90 96 Standing 61 142/88 95 1 3 1.7 10 98 158/82 Moderate SOB/leg fatigue 4.5 2 6 2.5 12 107 172/80 Dizzyness/Severe SOB/Leg fatigue 7 3 9 3.4 14 117 188/90 Presyncopal/Severe SOB/leg fatigue 10 1 min recovery 87 180/80 All symptoms subsided. 3 min recovery 79 164/90 97 6 min recovery 80 148/88
== END ==
PROVIDERS: PCP Nurse Practitioner Family; Visit Provider Nurse Practitioner Family
DX: R07.89 Other chest pain (principal); R94.39 Abnormal result of other cardiovascular function study; R42 Dizziness and giddiness; R06.02 Shortness of breath
CPT/HCPCS: 93016; 93018; 93017

== ENCOUNTER 2022-03-28 03:58 | Outpatient (CLI) | payer MEDICARE, MEDICAID, SELFPAY ==
[2022-03-28 08:15] LABS: Abs Immature Grans 0.02 10^3/uL (0.0-0.06); Absolute Basophil Count 0.09 10^3/uL (0.0-0.2); Absolute Eosinophil Count 0.36 10^3/uL (0.0-0.7); Absolute Lymphocyte Count 2.72 10^3/uL (1.2-3.4); Absolute Monocyte Count 0.73 10^3/uL (0.1-0.8); Absolute Neutrophil Count 5.18 10^3/uL (1.2-6.7); HCT 49.8 % (40.0-50.0); HGB 17.3 g/dL (13.5-17.5); Immature Grans % 0.2; Lymphocytes % 29.9; MCH 33.1 pg (27.0-33.0); MCHC 34.7 % (32.0-36.0); MCV 95 fL (80-95); MPV 9.4 fL (8.0-11.0); Neutrophils % 56.9; Platelet Count 235 10^3/uL (130-400); RBC 5.23 10^6/uL (4.36-5.78); RDW-SD 46.3 fL
[2022-03-28 09:19] LABS: ALT 53 U/L (16-63); AST 24 U/L (15-37); Albumin 4.5 g/dL (3.4-5.0); Alkaline Phosphatase 69 U/L (46-116); Anion Gap 9.6 mmol/L (3-11); BUN 20 mg/dL (7-18); Bilirubin, Total 0.5 mg/dL (0.2-1.0); CO2 27.4 mmol/L (21.0-32.0); Calculated LDL 58 mg/dL (<100); Chloride 104 mmol/L (98-107); Cholesterol 115 mg/dL (<200); Estimated GFR 89.44 (mL/min/1.73m2); Glucose 108 mg/dL (74-106); HDL Cholesterol 39 mg/dL (40-60); Potassium 4.4 mmol/L (3.5-5.1); Sodium 141 mmol/L (136-145); Total Protein 7.7 g/dL (6.4-8.2); Triglyceride 93 mg/dL (<150)
[2022-03-28 09:23] LABS: Calcium 9.1 mg/dL (8.5-10.1)
[2022-03-29 16:52] LABS: 4/8 Ratio 0.85 (>=0.90); Absolute CD3 2107 Cells/uL (840-2,669); Absolute CD8 1125 Cells/uL (154-1,097); CD3 72 % (56-84); CD4 33 % (31-64); CD8 39 % (9-39)
[2022-03-30 14:39] LABS: HBV DNA Detect/Quant, PCR Undetected IU/mL (Undetected)
[2022-04-01 13:50] LABS: HIV 1 RNA Qualitative Undetected copies/mL (Undetected)
== END 2022-03-28 03:59 | disposition home or self-care (01) ==
LOC: LBO 03:58
PROVIDERS: PCP Nurse Practitioner Family; Visit Provider Nurse Practitioner Family
DX: Z79.899 Other long term (current) drug therapy (principal); B20 Human immunodeficiency virus [HIV] disease
CPT/HCPCS: 36415; 80053; 80061; 87517; 87536; 85025; 86359; 86360

== ENCOUNTER → 2022-04-02 00:44 | Outpatient (CLI) | payer MEDICARE, MEDICAID, SELFPAY ==
--- NOTE | 2022-04-02 11:00 | DI.NM_ITS ---
APPROVED REPORT Exam: Pharmacologic Patient Location: Out-Patient Room/Bed: Stress Nurse: Angela Tavarez RN Ordering Provider:JAY GARCIA, Contact Number: [phone] BMI: 27.46 Baseline Rhythm: PVC's Comment: incomplete BBB Indications: CHEST PAIN, REGULAR STRESS STOPPED DUE TO DIZZINESS Medical History Medical History: HTN, HLD, Tobacco abuse, Hep B, Hep C, HIV Cardiac Medications: Rosuvastatin, Lisinopril, Allergies: Penicillins, Sulfas Cardiac Risk Factors: HTN, Hyperlipidemia, Smoking (current) Previous Cardiac Procedures: None Pretest Chest Pain Characteristics: None Exercise History: Physically active Physical Disabilities: None Lung Sounds: Clear to auscultation, wheezing left lower lobe Heart Sounds: Regular Stress Test Details Test: Exercise stress converted to pharmacologic stress due to failure to obtain a diagnostic stress test. Nuclear Acquisition: Rest Tc-99m/Stress Tc-99m 1 day Rest Isotope: Tc-99m Sestamibi. Dose: 9.5 Date: 04/02/2022 Injection Time: 1110 Stress Isotope: Tc-99m Sestamibi. Dose: 31.0 Date: 04/02/2022 Injection Time: 1330 HR Resting HR Supine: 55 bpm Max Heart Rate (APMHR): 166.346381 bpm Resting HR Standin bpm Target HR (85% APMHR): 141.733206 bpm Max HR Achieved: 118 bpm % of APMHR: 71.08 Recovery HR: 93 bpm HR response to stress: Normal HR response to stress Comment: unable to reach THR BP Resting BP Supine: 122/80 mmHg Resting BP Standin/80 mmHg Max BP: 168/80 mmHg Recovery BP: 124/78 mmHg BP response to stress: Normal blood pressure response to stress. ECG Resting ECG: Sinus Bradycardia Ectopy: None Stress ECG: Sinus Tachycardia ST Change: No significant ST segment changes noted Arrhythmia: PACs Recovery ECG: Sinus Rhythm Recovery ST Change: Horizontal ST depression Recovery Arrhythmia: None Clinical Reason for Termination: Leg fatigue, SOB Stress Symptoms: Leg Fatigue, Dyspnea Exercise duration: 09 min48 sec Highest Stage Reached: Stage 4: 4.2 mph at 16% grade. Rate Pressure Product: [id number] Stress ECG Conclusion 1. Resting electrocardiogram was within normal limits 2. Patient underwent testing using combination of exercise and pharmacologic stress with regadenoson 3. He achieved a workload of 10 METS but did not reach target heart rate 4. The electrocardiographic portion of the test was nondiagnostic due to inadequate heart rate 5. There were no significant dysrhythmias 6. See MPI report Stress Test Summary STAGE Time (mins) Speed (mph) Grade (%) HR BP SpO2 SYMPTOMS METS Supine 55 122/80 Standing 57 124/80 95% 1 3 1.7 10 86 140/88 96% 4.5 2 6 2.5 12 96 158/82 94% 7 3 9 3.4 14 107 168/80 94% 10 1 min post Lexiscan injection 111 162/80 3 min post Lexiscan injection 102 140/62 6 min post Lexiscan injection 93 124/78 MPI Conclusion Myocardial perfusion is normal without evidence of ischemia or prior infarction EF 49%, normal wall motion Radiologist Interpretation Radiologist agrees with Tile Setter Supervisor's Interpretation. Radiologist Interpretation by: Corey Mark MD Interpretation Date/Time: 04/02/2022 17:25:12
[2022-04-02] MEDS: Regadenoson 0.4 MG/5 ML SYR IVP (13:37)
== END ==
PROVIDERS: PCP Nurse Practitioner Family; Visit Provider Nurse Practitioner Family
DX: R07.89 Other chest pain (principal)
CPT/HCPCS: 78452; 93016; 93018; 93017; J2785

== ENCOUNTER → 2022-05-02 11:02 | Outpatient (CLI) | payer MEDICARE, MEDICAID, SELFPAY ==
--- OUTSIDE RECORDS SUMMARY | 2022-05-02 11:04 | XMS_ITS | Encounter Summary ---
:1970 Author Organization [facility] Address [address] [place] [address] Care Team Providers Name Role Phone Unknown, Provider MD Primary Care Provider None, Provider Primary Care Provider Unavailable Sabrina Jerome NP Primary Care Provider Encounter Details Date Type Department Care Team Description 08/11/2019 Lab Requisition [facility] Unknown, Provider, Pathology & Laboratory [facility] [address] [place] [address] [place] [address] Social History Tobacco Use Types Packs/Day Years Used Date Current Every Day Smoker Cigarettes 0.2 Smokeless Tobacco: Never Used Alcohol Use Standard Drinks/Week Comments No 2 (1 standard drink = 0.6 oz pure alcoho l) 1 drink every 2 weeks Alcohol Habits Answer Date Recorded How often do you have a drink containing alcohol? Not asked How many drinks containing alcohol do you have on Not asked a typical day when you are drinking? How often do you have six or more drinks on one Not asked occasion? Comment: 1 drink every 2 weeks 11/06/2016 Sex Assigned at Date Recorded Not on file documented as of this encounter Functional Status Functional Status Response Date of Assessment Because of a physical, mental, or emotional condition, No 07/20/2015 does this person have difficulty doing errands alone such as visiting a doctor's office or shopping? Cognitive Status Response Date of Assessment Because of a physical, mental, or emotional condition, No 07/20/2015 does this person have serious difficulty concentrating, remembering, or making decisions? documented as of this encounter Plan of Treatment Not on filedocumented as of this encounter Procedures Procedure Name Priority Date/Time Associated Comments Diagnosis T CELL SUBSETS Routine 08/11/2019 7:19 Results fo r this EST procedure are i n the results section. HIV 1 RNA Routine 08/11/2019 7:19 Results for this QUANTITATION EST procedure are i n the results section. documented in this encounter Results HIV 1 RNA QUANTITATION (08/11/2019 7:19 EST) HIV 1 RNA Quant 0 Undetected [facility] Comment: copies/mL [facility] Not Detected SERVICES HIV-1 RNA level is <20 copie s/mL. This assay cannot accurately quantify HIV- 1RNA below this level. Specimen Blood - Venous blood (substance) Narrative [facility] - 08/12/2019 15:51 EST The quantification range of this assay i s 20 IU/mL to 10,000,000 IU/mL. ??Testing was performed on the PADILLA Ampliprep/PADILLA T aqMan HIV v2.0 ([employer] Performing Organization Address City/State/[facility] Code Phon e Number [facility] [address] [place] [address] SERVICES (ABNORMAL) IMMUNODEFICIENCY PANEL (08/11/2019 7:19 EST) Pathologist Sig nature % CD3 68 62 - 87 % [facility] SERVICES % CD4 29 (L) 35 - 63 % [facility] % CD8 38 (H) 10 - 35 % [facility] Absolute CD4 836 329-1,427 cells/uL [facility] Specimen Blood - Venous blood (substance) Performing Organization Address City/State/[facility] Code Phon e Number [facility] [address] [place] [address] SERVICES documented in this encounter Visit Diagnoses Not on filedocumented in this encounter Care Teams Bone Char Puller Relationship Specialty Start Date End Date Unknown, Provider, PCP - General 02/24/19 03/01/20 None, Provider PCP - General 03/02/20 03/28/21 Sabrina Jerome, WATERMASTER PCP - General 03/29/21 [address] [place] [id number] documented as of this encounter
--- OUTSIDE RECORDS SUMMARY | 2022-05-02 11:04 | XMS_ITS | Encounter Summary ---
:1970 Author Organization [facility] Address [address] [place] [address] Care Team Providers Name Role Phone Sabrina Jerome NP Primary Care Provider Encounter Details Date Type Department Care Team Description 07/23/2021 Lab Requisition [facility] Outr Resulting Lab, Pathology & Laboratory Provider [facility] [address] [place] [id number] Social History Tobacco Use Types Packs/Day Years [...] Associated Comments Diagnosis T CELL SUBSETS Routine 07/23/2021 7:45 Results fo r this EST procedure are i n the results section. HIV 1 RNA Routine 07/23/2021 7:45 Results for this QUANTITATION EST procedure are i n the results section. documented in this encounter Results HIV 1 RNA QUANTITATION (07/23/2021 7:45 EST) HIV RNA Detection, Undetected Undetected [facility] Qual copies/mL LABORATORY SERVICES Specimen Blood - Venous blood (substance) Narrative [facility] SERVICES - 07/26/2021 13:09 EST New platform in use 02/05/2021 The quantification range of this assay i s 20 IU/mL to 10,000,000 IU/mL. ??Testing was performed using the Lucy HIV test ([employer] with the lucy [employer] System. Performing Organization Address City/[facility] Phon e Number [facility] [address] [place] [address] SERVICES (ABNORMAL) T CELL SUBSETS (07/23/2021 7:45 EST) Pathologist Sig nature % CD3 69 56 - 84 % [facility] SERVICES % CD4 31 31 - 64 % [facility] SERVICES % CD8 38 9 - 39 % [facility] SERVICES Absolute CD3 2,032 840-2,669 Cells/uL [facility] SERVICES Absolute CD4 904 488-1,734 Cells/uL [facility] SERVICES Absolute CD8 1,111 (H) 154-1,097 Cells/uL [facility] SERVICES 4/8 Ratio 0.81 (L) >=0.90 [facility] SERVICES Specimen Blood - Venous blood (substance) Performing Organization Address City/[facility] Phon e Number [facility] [address] [place] [address] SERVICES documented in this encounter Visit Diagnoses Not on filedocumented in this encounter Care Teams Subassembler Relationship Specialty Start Date End Date Sabrina Jerome NP PCP - General 03/29/21 [address] [place] [address] documented as of this encounter
--- OUTSIDE RECORDS SUMMARY | 2022-05-02 11:04 | XMS_ITS | Encounter Summary ---
:1970 Author Organization [facility] [place] [address] Care Team Providers Name Role Phone Sabrina Jerome APRN Primary Care Provider Reason for Referral Consultation (Routine) - Authorized Specialty Diagnoses / Procedures Referred By Contact Refer red To Contact Dermatology Diagnoses Sebaceous cyst Skin tags, anus or rectum Papule Sabrina Jerome APRN [facility] [address] [place] [id number] Referral ID Status Reason Start Expiration Visits Visits Date Date Requested Authorized [id number] Authorized Consult, 01/02/2022 01/02/2023 12 12 Test & Treat PCP Updated and/or Approved Encounter Details Date Type Department Care Team Description 01/02/2022 Transcribe Orders eDH Incoming Sabrina Jerome, Sebaceous cyst; Referrals ERICA Skin tags, anus or rectum; [phone] [address] [place], [place] [id number] Social History Tobacco Use Types Packs/Day Years Used Date Current Every Day Smoker Cigarettes 0.5 15 Smokeless Tobacco: Never Used Sex Assigned at Date Recorded Not on file documented as of this encounter Plan of Treatment Upcoming Encounters Date Type Specialty Care Team Description 05/10/2022 Office Visit Dermatology Scheduled Referrals Name Type Priority Associated Order Schedule Diagnoses Referral to Outpatient Referral Routine Sebaceous cy st Ordered: Dermatology Skin tags, anus or 2 rectum Papule documented as of this encounter Visit Diagnoses Diagnosis Sebaceous cyst Skin tags, anus or rectum Residual hemorrhoidal skin tags Papule Other specified disorder of skin documented in this encounter Care Teams School Guard Relationship Specialty Start Date End Date Sabrina Jerome, SQL PROGRAMMER ANALYST PCP - General Family Medicine 01/02/22 [address] [place] [address] documented as of this encounter
--- OUTSIDE RECORDS SUMMARY | 2022-05-02 11:04 | XMS_ITS | Encounter Summary ---
:1970 Author Organization [facility] Address [address] [place] [address] Care Team Providers Name Role Phone None, Provider Primary Care Provider Unavailable Sabrina Jerome NP Primary Care Provider Encounter Details Date Type Department Care Team Description 03/02/2020 Lab Requisition [facility] Outr Resulting Lab, Pathology & Laboratory Provider [facility] [address] [place] [address] Social History Tobacco Use Types Packs/Day Years [...] Procedure Name Priority Date/Time Associated Comments Diagnosis HIV 1 RNA Routine 03/02/2020 7:38 Results for this QUANTITATION EDT procedure are i n the results section. documented in this encounter Results HIV 1 RNA QUANTITATION (03/02/2020 7:38 EDT) HIV RNA Detection, Undetected Undetected [facility] Qual copies/mL LABORATORY SERVICES Specimen Blood - Venous blood (substance) Narrative [facility] SERVICES - 03/06/2020 14:18 EDT The quantification range of this assay i s 20 IU/mL to 10,000,000 IU/mL. ??Testing was performed on the PADILLA Ampliprep/PADILLA T aqMan HIV v2.0 ([employer] Performing Organization Address City/State/ZIP Code Phon e Number [facility] [address] [place] [address] SERVICES documented in this encounter Visit Diagnoses Not on filedocumented in this encounter Care Teams Field Coordinator Relationship Specialty Start Date End Date None, Provider PCP - General 03/02/20 03/28/21 Sabrina Jerome, DRAPERY OPERATOR PCP - General 03/29/21 [address] [place] [address] documented as of this encounter
--- OUTSIDE RECORDS SUMMARY | 2022-05-02 11:04 | XMS_ITS | Encounter Summary ---
:1970 Author Organization [facility] Address [address] [place] [address] Care Team Providers Name Role Phone Hanane Pollock NP Primary Care Provider Encounter Details Date Type Department Care Team Description 04/04/2017 Results Only Imaging [facility] Juli Franz, Infectious Disease - [place] [address] [address] Social History Tobacco Use Types Packs/Day Years Used Date Current Every Day Smoker Cigarettes 1 Smokeless Tobacco: Never Used Alcohol Use Standard [...] encounter Procedures Procedure Name Priority Date/Time Associated Diagnosis Comme nts VL RENAL ARTERY 04/04/2017 9:27 EDT Resul ts for this DUPLEX procedure are i n the results section. documented in this encounter Results VL RENAL ARTERY DUPLEX (04/04/2017 9:27 EDT) Anatomical Region Laterality Modality Other Specimen Narrative [facility] LINDA ROLLINS S - 04/07/2017 9:41 EDT Vascular Diagnostic Laboratory [facility] [place], [facility], Level [address] [facility] [place] [address] Technologist: Erik Trivedi Fellow: IMPRESSIONS 1. Normal bilateral renal artery evaluat ion. 2. Resistive index on the right is jose l: 0.64. 3. Resistive index on the left is normal : 0.64. PROCEDURE: Renal artery duplex evaluation. ? Du plex scan and Doppler flow study including spectral analysis, color and g ray scale imaging. INDICATION: Hypertension. HISTORY: RISK FACTORS: Current tobacco use. Hypertension. DOPPLER FINDINGS: + +-------+------+--- ------+ Location ? V sys ?? V e d ?? Resistive + +-------+------+--- ------+ Abdominal aorta ? 108cm/s ? + +-------+------+--- ------+ Right renal - prox ?? 81cm/s 29cm/s ? + +-------+------+--- ------+ Right renal - mid ?? 50cm/s 20cm/s ? + +-------+------+--- ------+ Right renal - dist ?? 48cm/s 17cm/s ? + +-------+------+--- ------+ R upper pole cortex 34cm/s 12cm/s 0.6 4 ? + +-------+------+--- ------+ R upper pole medulla 55cm/s 20cm/s 0.6 4 ? + +-------+------+--- ------+ R lower pole medulla 60cm/s 22cm/s 0.6 3 ? + +-------+------+--- ------+ R lower pole cortex 26cm/s 10cm/s 0.6 3 ? + +-------+------+--- ------+ L upper pole cortex 31cm/s 13cm/s 0.5 9 ? + +-------+------+--- ------+ L upper pole medulla 39cm/s 15cm/s 0.6 2 ? + +-------+------+--- ------+ L lower pole medulla 34cm/s 10cm/s 0.7 1 ? + +-------+------+--- ------+ L lower pole cortex 23cm/s 8cm/s 0.6 5 ? + +-------+------+--- ------+ * RENAL ANATOMY: +---------+------+------+ ? Right Left ?? +---------+------+------+ Long axis 11.3cm 11.4cm +---------+------+------+ * Electronically signed by: Juan Pablo Michaud 04/07/2017 09:41 Procedure Note Juan Pablo Michaud MD - 04/07/2017 Vascular Diagnostic Laboratory [facility], [facility] [address] [place] [address] Technologist: Erik Trivedi Fellow: IMPRESSIONS 1. Normal bilateral renal artery evaluat ion. 2. Resistive index on the right is jose l: 0.64. 3. Resistive index on the left is normal : 0.64. PROCEDURE: Renal artery duplex evaluation. Duplex s can and Doppler flow study including spectral analysis, color and g ray scale imaging. INDICATION: Hypertension. HISTORY: RISK FACTORS: Current tobacco use. Hypertension. DOPPLER FINDINGS: + +-------+------+--- ------+ Location V sys V ed Resistive + +-------+------+--- ------+ Abdominal aorta 108cm/s + +-------+------+--- ------+ Right renal - prox 81cm/s 29cm/s + +-------+------+--- ------+ Right renal - mid 50cm/s 20cm/s + +-------+------+--- ------+ Right renal - dist 48cm/s 17cm/s + +-------+------+--- ------+ R upper pole cortex 34cm/s 12cm/s 0.6 4 + +-------+------+--- ------+ R upper pole medulla 55cm/s 20cm/s 0.6 4 + +-------+------+--- ------+ R lower pole medulla 60cm/s 22cm/s 0.6 3 + +-------+------+--- ------+ R lower pole cortex 26cm/s 10cm/s 0.6 3 + +-------+------+--- ------+ L upper pole cortex 31cm/s 13cm/s 0.5 9 + +-------+------+--- ------+ L upper pole medulla 39cm/s 15cm/s 0.6 2 + +-------+------+--- ------+ L lower pole medulla 34cm/s 10cm/s 0.7 1 + +-------+------+--- ------+ L lower pole cortex 23cm/s 8cm/s 0.6 5 + +-------+------+--- ------+ * RENAL ANATOMY: +---------+------+------+ Right Left +---------+------+------+ Long axis 11.3cm 11.4cm +---------+------+------+ * Electronically signed by: Juan Pablo Michaud 04/07/2017 09:41 Performing Organization Address City/State/ZIP Code Phon e Number [facility] documented in this encounter Visit Diagnoses Not on filedocumented in this encounter Care Teams Senior Administrative Associate Relationship Specialty Start Date End Date Hanane Pollock NP PCP - General 01/30/09 02/23/19 [facility] [address] [place] [address] documented as of this encounter
--- OUTSIDE RECORDS SUMMARY | 2022-05-02 11:04 | XMS_ITS | Encounter Summary ---
:1970 Author Organization [facility] Address [address] [place] [address] Care Team Providers Name Role Phone Hanane Pollock NP Primary Care Provider Reason for Visit Reason Onset Date Comments Other 04/29/2018 Encounter Details Date Type Department Care Team Description 04/29/2018 Telephone [facility] Bharat [place] MD Other Surgery - [facility] [address] [address] [address], [place], [place] [address] (Wo rk) Social History Tobacco Use Types Packs/Day Years [...] making decisions? documented as of this encounter Miscellaneous Notes Telephone Encounter - Terri Coelho - 04/29/2018 1541 EDT I called Fernando Guanakito's partner. He insisted that Guanakito had his colonoscopy here at [facility], which I told him I could not find when he had it or who did it. He was concerned that I could not find it; therefore, I called Guanakito's nurse practitioner Hanane Pollock at [phone], who did research and determined that Dr. Sarkis Dean did it 09/12/08 at [facility], and it was found tohave a polyp removed which was a hyperplastic polyp. Dr. Dowd saw Guanakito in the office on 07/20/08 andhad me put in a reminder to have him call the office in 2008 to schedule a f/u colonoscopy which I will try and book after 09/12/18. documented in this encounter Plan of Treatment Not on filedocumented as of this encounter Visit Diagnoses Not on filedocumented in this encounter Care Teams Internet Sales Director Relationship Specialty Start Date End Date Hanane Pollock BOX TOE BUFFER PCP - General 01/30/09 02/23/19 [facility] [address] [place] [address] documented as of this encounter
--- OUTSIDE RECORDS SUMMARY | 2022-05-02 11:04 | XMS_ITS | Encounter Summary ---
:1970 Author Organization [facility] Address [address] [place] [address] Care Team Providers Name Role Phone Hanane Pollock NP Primary Care Provider Encounter Details Date Type Department Care Team Description 03/12/2016 Documentation Visit [facility] MENDY Franz (acquired Infectious Disease Juli Villegas [facility] CD4 <=200 [address] [facility] ([facility]) (Primary Dx) [place] [address] Social History Tobacco Use Types Packs/Day Years Used Date Current Every Day Smoker Cigarettes 1 Smokeless Tobacco: Never Used Alcohol Use Standard Drinks/Week Comments No 1 (1 standard drink = 0.6 oz pure alcoho l) socially Alcohol Habits Answer Date Recorded How often do you have a drink containing alcohol? Not asked How many drinks containing alcohol do you have on a typical Not asked day when you are drinking? How often do you have six or more drinks on one occasion? No t asked Comment: socially 05/22/2011 Sex Assigned at Date Recorded Not on [...] making decisions? documented as of this encounter Progress Notes Juli Franz MD - 03/12/2016 1027 EDT Received lab results but no HIV PCR done. It looks like the lab did a HCV RNA instead. Called the ptand left a message for him to let him know that he will need to go in for a repeat blood draw. documented in this encounter Plan of Treatment Not on filedocumented as of this encounter Visit Diagnoses Diagnosis AIDS (acquired immunodeficiency syndrome ), CD4 <=200 ([facility] ([facility]) - Primary Human immunodeficiency virus [HIV] disea se documented in this encounter Care Teams Structures Engineer Relationship Specialty Start Date End Date Hanane Pollock NP PCP - General 01/30/09 02/23/19 [facility] [address] [place] [address] documented as of this encounter
--- OUTSIDE RECORDS SUMMARY | 2022-05-02 11:04 | XMS_ITS | Encounter Summary ---
:1970 Author Organization [facility] Address [address] [place] [address] Care Team Providers Name Role Phone None, Provider Primary Care Provider Unavailable Reason for Visit Reason Comments Follow-up Encounter Details Date Type Department Care Team Description 03/06/2020 Telemedicine [facility] YovaniLit red immunodeficiency syndrome ([facility]) (Primary Dx); Infectious Disease J, DO Asymptomatic HIV infection ([facility]) - [address], [place] [address] Social History Tobacco Use Types Packs/Day Years [...] documented as of this encounter Progress Notes Lit Pina, DO - 03/06/2020 0900 EDT ?? Division of Infectious Disease Follow up/Progress Note 03/06/20 9:26 TELEMEDICINE VIDEO VISIT Today's visit was provided through telemedicine video conferencing: The location of the patient : Home The location of the provider: Office The following staff and their role did participate in today's encounter visit: Lit Pina, DO The concept of ???Telemedicine?? has been described to the patient.? Patient has been informed of the anticipated benefits and possible risks.? Patient understands the information provided regarding telemedicine, has had the opportunity to ask questions about this information, and all questions have been answered to patient???s satisfaction. Patient consents for the use of telemedicine in his/her medical care and authorizes the transmission of any relevant medical information to providers and theirstaff involved in patient???s medical or mental health care. Chief Complaint: HIV follow-up care ?? HPI: ??Mamadou??is a 50 y.o.??male with history significant for HIV who presents with routine follow up. 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 Most recent CD4 done in Jul 2019 was 836 and HIV VL in Jul 2019??was <??20. ??His current VL is pending??. ??Pt on raltegravir 600mg two tabs daily and odefsey. Very good with adherence. 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 Both parties are on ART and have VL < 20. ?? Closed relationship. His partner is followed at [facility] as well. ?? Doing well in general,??he planned to quit tobacco in 2019 But still smoking, now up to 1PPD. Not interested in quitting. ?? Review of Systems: 10-point review of systems is negative except as noted in the HPI. Past Medical History: ? Past Medical History: Diagnosis Date ??? HIV positive (CMS-HCC) (HCC-CMS) ? 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 Past Surgical History: None ?? Current Outpatient Medications: ?? acetaminophen (TYLENOL EXTRA STRENGTH) 500 mg tablet Take 1,000 mg by mouth every 12 hours as neededfor Pain. Cholecalciferol, Vitamin D3, 400 unit tablet Take 400 Units by mouth daily. doxazosin (CARDURA) 4 mg tablet Take 1 tablet by mouth every day (Patient not taking: Reported on 09/17/2017) nhxotvnjng-qfqcuysd-zjobgt ala 200-25-25 mg tablet Take 1 Tab by mouth daily. lisinopril (PRINIVIL, ZESTRIL) 10 mg tablet Take 1 Tab by mouth daily. raltegravir 600 mg tablet Take 1,200 mg by mouth daily. ? Allergies Allergen Reactions ??? Penicillins Rash ??? Sulfa (Sulfonamide Antibiotics) Hives ?? Social History Tobacco: 1 PPD Alcohol:Rare, heavy in past Recreational drugs:THC, daily Herbal:none Professional:Doing some [employer] Relationships / Living Situation: Sounds stable Sexual: Yes, not using condoms. 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 Social History ? Physical exam: Deferred as this is a zoom visit. ? Jul 2019 creat 1.04, ?? 1) HIV, on odefsey and ralteg 1200mg PO daily. ??Seems comfortable with this regimen. ??HIV VL <??02 Aug 2019, CD4 836, He gets 30 days at a time for ART supply so doing well. Current VL pending butdon't anticipate problems. OI prophy NA HCV/HBV: ??Natural infection with both, both appeared cleared GC/chlamydia testing: ??Pt in closed relationship for years, will defer for now Need to see in 6 months for next eval ?? 2) HBV in past, needs to always stay on TAF/3TC based regimen ?? 3) Active smoking; ??Pt not interested in quitting. ?? 4) Prev med: ??Needs menactra #2 when available. Shingrix UTD. ?? Flu fall 2019. ??Hep A vaccine in distant past. ??Tdap 2011. ?[place] Apr 2019, looked good so repeat in 10 years. ??Pneumovax 2018, prevnar 2014. ?? 5) HTN per PCM ?? 6) Had benign lesion removed from oral cavity in 2019, benign. Pt encouraged to stop smoking Currently employed: Yes Adherence counseling: Yes Linguistic services: No Patient with HIV (-) partner: Yes HIV (-) partner tested within the last 12 months: Not applicable Partner notification discussed: Not applicable Social History Social History Tobacco Use Smoking Status Current Every Day Smoker ??? Packs/day: 0.20 ??? Types: Cigarettes Smokeless Tobacco Never Used Smoking cessation discussed: Yes Gonorrhea and chlamydia testing done in the past year: No, not sexually active or in a mutually monogamous relationship over the past 12 mos Oral exam done at this visit: No Seen by dentist in the past year. Yes Referred to dentist at this visit: No Housing: Stable HIV risk reduction counseling: Yes Screened for mental health: Yes Screened for substance abuse: Yes Current substance use (used more than once in the past 12 months): marijuana documented in this encounter Plan of Treatment Not on filedocumented as of this encounter Visit Diagnoses Diagnosis Acquired immunodeficiency syndrome (HCC- CMS) (HCC) - Primary Human immunodeficiency virus [HIV] disea se Asymptomatic HIV infection (HCC) Asymptomatic human immunodeficiency viru s (HIV) infection status documented in this encounter Care Teams Supervisor Treating And Pumping Relationship Specialty Start Date End Date None, Provider PCP - General 03/02/20 03/28/21 documented as of this encounter
--- OUTSIDE RECORDS SUMMARY | 2022-05-02 11:04 | XMS_ITS | Encounter Summary ---
:1970 Author Organization [facility] Address [address] [place] [address] Care Team Providers Name Role Phone Hanane Pollock NP Primary Care Provider Reason for Visit Reason Comments Follow-up Encounter Details Date Type Department Care Team Description 03/12/2017 Office Visit [facility] Juli Franz Essen tial hypertension (Primary Dx); Infectious Disease - AIDS (a cquired immune deficiency syndrome) ([facility]); [facility] AIDS ([facility]); [address] Chronic active hepatitis B w [facility] delta agent ([facility]-HCC); [place], [place] [address] Tobacco abuse [phone] Social History Tobacco Use Types Packs/Day Years Used Date Current Every Day Smoker Cigarettes 1 Smokeless Tobacco: Never Used Tobacco Cessation: Ready to Quit: No; Co unseling Given: Yes Alcohol Use Standard Drinks/Week Comments No 2 [...] on file documented as of this encounter Last Filed Vital Signs Vital Sign Reading Time Taken Comments Blood Pressure 140/100 03/12/2017 0934 EDT Pulse - - Temperature - - Respiratory Rate - - Oxygen Saturation - - Inhaled Oxygen Concentration - - Weight 82.6 kg (182 lb) 03/12/2017 0934 EDT Height - - Body Mass Index 26.88 07/20/2015 1513 EST documented in this encounter Functional Status Functional Status Response [...] making decisions? documented as of this encounter Ordered Prescriptions Prescription Sig Dispensed Refills Start Date End Date lisinopril (PRINIVIL, Take 1 Tab by mouth 7 Tab 0 03/12 ZESTRIL) 10 mg tablet daily. eszdvjlxqs-hqjlusyu-wgrmoq Take 1 Tab by mouth 30 Tab 6 03/12/2017 09/17/2017 ala 200-25-25 mg tablet daily. Raltegravir (ISENTRESS) Take 1 Tab by mouth 60 Tab 6 09/17/2017 400 mg tabletIndications: 2 times daily. AIDS (acquired immune deficiency syndrome) (HCC-CMS) (HCC), AIDS (HCC-CMS) (HCC) documented in this encounter Progress Notes Juli Franz MD - 03/12/2017 0945 EDT [facility] [[email or web address] - [facility] FOLLOWUP NOTE DOS 03/12/2017 Last seen: 11/06/2016 SUBJECTIVE: [place] presents for reevaluation of his HIV disease and his chronic hepatitis B and C. Going to [place] for his BP. They have been titrating his medication but his blood pressure is stillnot controlled. He never did have the renal artery ultrasound as it cannot be done locally. No acute illness since last seen occasional VICK Less stressed Had some work over the summer No further chest pressure Saw dentist 3 weeks ago Appetite good Energy good He and Fernando are getting along No other acute complaints today Allergies reviewed and updated in [facility] MEDICATIONS: reviewed and updated in [facility] Denies missing doses Isentress 400 mg twice daily. 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 Cleared virus SOCIAL HISTORY: dog is ok -turned that she has some sort of congenital issue with her platelets that was causing thebleeding Smoking 1 pack every day ETOH - none + MJ daily Lives with his compliance associate partner who is also HIV + They do not practice safer sex, but they are very infrequently sexually active They have 25 chickens and 2 roosters, cockatiel, 1 cat and 2 dogs at home. The one legged chicken (Denise) also lives in the house Now has new chicks FAMILY HISTORY: Father was on HD before he . ? Reason for his ESRD. He was known to have HTN Mother alive REVIEW OF SYSTEMS: A 10-point review of systems was performed and was negative except for the findings mentioned above and for the following: Denies increased shortness of breath, chronic cough He has had some chest pressure which is not exertionally related and he says it improves with belching No GI or complaints No rash No fever, chills or NS OBJECTIVE: BP (!) 140/100 Wt 82.6 kg (182 lb) BMI 26.88 kg/m2 Alert and appropriate, NT, NAD, comfortable on RA. Affect more upbeat today than it was at the time of his last visit. No scleral icterus, conjunctivae pink. Pupils equal. No oral lesions. fair dentition No cervical or supraclavicular lymphadenopathy. Lungs: Clear Cardiac exam reveals a regular rhythm. Abdomen: Bowel sounds are present, soft, nontender Extremities: He has no edema. He has chronic changes in his nails which are stable. No acute rash. DIAGNOSTIC DATA: Last labs: 02/22/2017: Chemistries significant for: creatinine 0.92 phosphorus 2. 9 Glucose 109 Electrolytes within normal limits AST/ALT 18/40 GGT 27 HIV PCR undetectable HBV DNA Undetectable HCV RNA undetectable ASSESSMENT AND PLAN: 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 He has good adherence. He had had an increase in his Cr so we wanted to make a change to decrease risk for compliance associate nephrotoxicity. He has chronic HBV so wanted to continue TDF and 3TC. Use of the ATV and RTV with the TDF increases the TDF levels and increases risk for nephrotoxicity.Therefore we changed his heart from ATV/RTV/RAL/TDF/3TC to 3TC/TDF/RAL and rilpivirine in place of the boosted ATV.He started the new regimen late November 2015. At the time of his last visit we made a plan to change hisTDF/3TC to TAF/FTC. With that change we were able to simplify the regimen by giving him Odefsey (rilp ivirine/TAF/FTC) once a day in combination with his raltegravir twice daily. He had had a lipid panel prior to his last visit and will need to repeat his lipid panel with his next blood work as the TAFmay cause an increase in his LDL. I do not think he is a candidate for dolutegravir because of the potential for increase in his liver enzymes with his underlying hepatitis B and C. He is tolerating his present medications well and has good adherence. Therefore we will plan to continue the Odefsey andraltegravir. He will need to have repeat blood work and a follow-up with me in the [facility] in 4-6 months. We will plan to repeat his lipid panel with his future blood work. 2. Tobacco use - He tried the CHantix at the same time that he started lisinopril and he developed palpitations so he discontinued both of the medications. He does not feel that he can stop smoking without the support of his partner and unfortunately Fernando is not motivated to quit.. Stressed again that quitting smoking is the best thing that he could do for his heart. He is not ready to discontinue his tobacco use at present. 3. HTN - He has been seen at the [facility] for his hypertension since he was last seen by me. They have titrated up the Cardura but his blood pressure today remains markedly elevated. He isasymptomatic with the elevated blood pressure. He is not having any headaches. No chest pain or shortness of breath. Unclear if he had palpitations secondary to lisinopril or the Chantix. He is willingto be rechallenged with lisinopril. I sent in a prescription for lisinopril 10 mg #7 to take 1 a day. He anticipates he will have the medication by Friday. I think he will know fairly quickly if lisinopril is causing the palpitations. If he develops palpitations with the lisinopril we will discontinueit. If he tolerates the lisinopril he will continue on the lisinopril 1 daily with his Cardura 8 mg daily. He is going to see Hanane in follow-up next to have his blood pressure checked. In view of the fact that he has new onset of hypertension which has been difficult to control I do think danay to have a renal artery study. He is willing to go to [place] or to [facility] to have this done, and Hanane will set him up for that appointment. If he tolerates the lisinopril we will need to watch his potassium closely as unclear if he has underlying renal artery stenosis. He is not overweight. He does not use excessive amounts of caffeine. He is using minimal to no alcohol. He is not using NSAIDs. He continues to smoke and I continue to encourage him to quit. I do not think we have any room for other nonpharmacologic interventions for his blood pressure. 4. Chronic hepatitis B and hepatitis C. Liver biopsy 05/2010 was consistent with treated hep B, and there really was no evidence of activity of his hepatitis C; in fact, we were not able to amplify HCVfor genotyping and he has never been treated for his hep C. Most recent blood work demonstrated an undetectable HCVRNA. He has been on therapy for his hep B, and we did not see any evidence of progression of his fibrosis based on that biopsy. HBV DNA undetectable on his most recent blood work. Transaminases normal. As he did not have cirrhosis unclear that he needs screening US. He has hemorroids butnever had endoscopy to eval for varices, but unclear if this is indicated in absence of cirrhosis. Co uld consider fibroscan. No longer having any rectal bleeding. 5. Health maintenance. Flu shot today. Last lipid panel was acceptable. He will be due for repeat lipid panel with his next blood work as we need to monitor for worsening LDL on the TAF. Will need repeat syphilis serology . Hep A antibody neg so needs reimmunize with HAV vaccine. Tdap was given in 09/2011. Quantiferon neg. UTD on Prevnar. Needs repeat Pneumovax, but need to check on the date of his last Pneumovax. Had colo 09/2008. Urine for Chlamydia/GC 11/2015 neg, so will h be due for repeat. He hasseen the dentist. 6 Lung nodule - he underwent biopsy of concerning lung nodule 05/2011 - path revealed AFB but culture was negative. He remains asymptomatic. Last CXR was stable. He continues to smoke so may be a candidate for screening CT for lung cancer. Hanane will look into scheduling this through the [facility]. 7. Depression -he has had issues with depression in the past. At the time of his last visit his affect was depressed but there were multiple different stressors playing a role at that time. He seems much more upbeat today. He is definitely under less stress. We will continue off antidepressants. He isnot been receptive to seeing a counselor in the past. documented in this encounter Plan of Treatment Not on filedocumented as of this encounter Visit Diagnoses Diagnosis Essential hypertension - Primary Unspecified essential hypertension AIDS (acquired immune deficiency syndrom e) (HCC-CMS) (HCC) Human immunodeficiency virus [HIV] disea se AIDS (HCC-CMS) (HCC) Human immunodeficiency virus [HIV] disea se Chronic active hepatitis B without delta agent (HCC-CMS) (HCC) Tobacco abuse Tobacco use disorder documented in this encounter Discontinued Medications Medication Sig Discontinue Reason Start Date End Date Raltegravir (ISENTRESS) Take 1 Tab by mouth Reorder 11/06/2016 03/12/2017 400 mg tabletIndications: 2 times daily. AIDS (acquired immune deficiency syndrome) (HCC-CMS) (HCC), AIDS (HCC-CMS) (HCC) uuhiauxnra-gzmgzulj-euhsj Take 1 Tab by mouth Reorder 02/15/20 17 03/12/2017 o ala 200-25-25 mg tablet daily. documented as of this encounter Care Teams Grader Marker Relationship Specialty Start Date End Date Hanane Pollock NP PCP - General 01/30/09 02/23/19 [facility] [address] [place] [address] documented as of this encounter
--- OUTSIDE RECORDS SUMMARY | 2022-05-02 11:04 | XMS_ITS | Encounter Summary ---
:1970 Author Organization [facility] Address [address] [place] [address] Care Team Providers Name Role Phone Sabrina Jerome CODIFIER Primary Care Provider Reason for Visit Reason Comments Other Encounter Details Date Type Department Care Team Description 01/04/2022 Refill [facility] Ramin Pina, DO Other Infectious Disease - [address] [place], [place] [address] [place] [phone] (Wo rk) Social History Tobacco Use Types [...] on filedocumented in this encounter Care Teams Oliver Filter Operator Relationship Specialty Start Date End Date Sabrina Jerome, CODIFIER PCP - General 03/29/21 [address] [place] [address] documented as of this encounter
--- OUTSIDE RECORDS SUMMARY | 2022-05-02 11:04 | XMS_ITS | Encounter Summary ---
:1970 Author Organization [facility] Address [address] [place] [address] Care Team Providers Name Role Phone None, Provider Primary Care Provider Unavailable Reason for Visit Reason Comments HIV Positive/AIDS Encounter Details Date Type Department Care Team Description 07/31/[address] [facility] Lit Pina, As ymptomatic HIV Infectious Disease - DO infection (HCC-CMS) [address] (Primary Dx) [address] [place] [address], [place] [phone] (Wo rk) Social History Tobacco Use Types [...] encounter Progress Notes Lit Pina, DO - 07/31/2020 0236 EST I spent a total of 30 minutes on the date of this encounter meeting with the patient and reviewing documentation/coordinating care as described in the above note. No procedures were performed at the time of the visit. Chief Complaint: HIV follow-up care Division of Infectious Disease Follow up/Progress Note 07/31/20 8:33 TELEMEDICINE VIDEO VISIT Today's visit was provided [...] in patient???s medical or mental health care. ?? HPI: ??Mamadou??is a 50 y.o.??male with history significant for HIV who presents with routine follow up. 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 Most recent CD4 done in??Jul??2019??was 836??and HIV VL in Feb??2019??was <??20. ??His current VL and CD4 are pending??. ??Pt on raltegravir 600mg two tabs daily and odefsey. Very good with adherence. 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 Both parties are on ART and have VL <??20. ?? Closed relationship. His partner is followed at [facility] as well. ?? Doing well in general,??he planned to quit tobacco in 2019 ??But still smoking, now up to 1PPD. Still Not interested in quitting. ?? Review of [...] day (Patient not taking: Reported on 09/17/2017) epaxsurtqn-uahwydwy-mkwoyk ala 200-25-25 mg tablet Take 1 Tab by mouth daily. lisinopril (PRINIVIL, ZESTRIL) 10 mg tablet Take 1 Tab by mouth daily. raltegravir 600 mg tablet Take 1,200 mg by mouth daily. ? Allergies Allergen Reactions ??? Penicillins Rash ??? Sulfa (Sulfonamide Antibiotics) Hives ?? 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 Social History ? Physical exam: Deferred as this is a zoom visit. ? Jul 2019 creat 1.04,? 1) HIV, on odefsey and ralteg 1200mg PO daily. ??Seems comfortable with this regimen. ??HIV VL <??20??Feb 2020, CD4 836 in Jul 2019 with current labs pending, ??He gets 30 days at a time for ART supply so doing well. Current VL pending but don't anticipate problems. OI prophy NA HCV/HBV: ??Natural infection with both, both appeared cleared GC/chlamydia testing: ??Pt in closed relationship for years, will defer for now Need to see in 6 months for next eval ?? 2) HBV in past, needs to always stay on TAF/3TC based regimen ?? 3) Active smoking; ??Pt not interested in quitting. ?? 4) Prev med:?Needs??menactra #2 when available. ?Shingrix UTD. ?Flu fall 2019. ??Hep A vaccine in distant past. ??Tdap 2011. ?[place]??Apr 2019, looked good so repeat in 10 years.?Pneumovax 2018, prevnar 2014. ?? 5) HTN per PCM, sees Sabrina Jerome with good regularity. ?? 6) Had benign lesion removed from oral cavity in 2019, benign. ?Pt encouraged to stop smoking ?? Currently employed: Yes ?? Adherence counseling: Yes ?? Linguistic services: No ?? Patient with HIV (-) partner: Yes ?? HIV (-) partner tested within the last 12 months: Not applicable ?? Partner notification discussed: Not applicable ?? Social History Social History ?? Tobacco Use Smoking Status Current Every Day Smoker ??? Packs/day: 0.20 ??? Types: Cigarettes Smokeless Tobacco Never Used ? Smoking cessation discussed: Yes ?? Gonorrhea and chlamydia testing done in the past year: No, not sexually active or in a mutually monogamous relationship over the past 12 mos ?? Oral exam done at this visit: No ?? Seen by dentist in the past year. Yes ?? Referred to dentist at this visit: No ?? Housing: Stable ?? HIV risk reduction counseling: Yes ?? Screened for mental health: Yes ?? Screened for substance abuse: Yes ?? Current substance use (used more than once in the past 12 months): marijuana ? documented in this encounter Plan of Treatment Not on filedocumented as of this encounter Visit Diagnoses Diagnosis Asymptomatic HIV infection (HCC) - Prima ry Asymptomatic human immunodeficiency viru s (HIV) infection status documented in this encounter Care Teams Control Systems Drafting Officer Relationship Specialty Start Date End Date None, Provider PCP - General 03/02/20 03/28/21 documented as of this encounter
--- OUTSIDE RECORDS SUMMARY | 2022-05-02 11:04 | XMS_ITS | Encounter Summary ---
:1970 Author Organization [facility] Address [address] [place] [address] Care Team Providers Name Role Phone None, Provider Primary Care Provider Unavailable Sabrina Jerome RUBBER TURNER Primary Care Provider Encounter Details Date Type Department Care Team Description 02/01/2021 Lab Requisition [facility] Outr Resulting Lab, Pathology & Laboratory Provider [facility] [address] [place] [address] Social History Tobacco Use Types Packs/Day Years [...] Associated Comments Diagnosis T CELL SUBSETS Routine 02/01/2021 8:29 Results fo r this EDT procedure are i n the results section. HIV 1 RNA Routine 02/01/2021 8:29 Results for this QUANTITATION EDT procedure are i n the results section. documented in this encounter Results HIV 1 RNA QUANTITATION (02/01/2021 8:29 EDT) HIV RNA Detection, Undetected Undetected [facility] Qual copies/mL LABORATORY SERVICES Specimen Blood - Venous blood (substance) Narrative [facility] LABORATORY SERVICES - 02/05/2021 15:08 EDT The quantification range of this assay i s 20 IU/mL to 10,000,000 IU/mL. ??Testing was performed on the PADILLA Ampliprep/PADILLA T aqMan HIV v2.0 ([employer] Performing Organization Address City/State/[facility] Code Phon e Number [facility] LABORATORY [address] [place] [address] SERVICES (ABNORMAL) T CELL SUBSETS (02/01/2021 8:29 EDT) Pathologist Sig nature % CD3 70 56 - 84 % [facility] LABORATORY SERVICES % CD4 31 31 - 64 % [facility] LABORATORY SERVICES % CD8 38 9 - 39 % [facility] LABORATORY SERVICES Absolute CD3 1,607 840-2,669 Cells/uL [facility] LABORATORY SERVICES Absolute CD4 717 488-1,734 Cells/uL [facility] LABORATORY SERVICES Absolute CD8 878 154-1,097 Cells/uL [facility] LABORATORY SERVICES 4/8 Ratio 0.82 (L) >=0.90 [facility] LABORATORY SERVICES Specimen Blood - Venous blood (substance) Performing Organization Address City/[facility] Phon e Number [facility] LABORATORY [address] [place] [address] SERVICES documented in this encounter Visit Diagnoses Not on filedocumented in this encounter Care Teams Glazier Apprentice Relationship Specialty Start Date End Date None, Provider PCP - General 03/02/20 03/28/21 Sabrina Jerome NP PCP - General 03/29/21 [address] [place] [address] documented as of this encounter
--- OUTSIDE RECORDS SUMMARY | 2022-05-02 11:04 | XMS_ITS | Encounter Summary ---
:1970 Author Organization [facility] Address [address] [place] [address] Care Team Providers Name Role Phone Hanane Mccormack NP Primary Care Provider Encounter Details Date Type Department Care Team Description 05/22/2017 Results Only [facility] Peggy Disa, DO [phone] [facility] [place], [place] [address] (Wo rk) Social History Tobacco Use Types [...] Name Priority Date/Time Associated Diagnosis Comme nts SURGICAL PATHOLOGY Routine 05/22/2017 7:28 EST Re sults for this procedure are i n the results section. documented in this encounter Results SURGICAL PATHOLOGY (05/22/2017 7:28 EST) Pathology Report: SURGICAL PATHOLOGY REPORT [facility] Reports generated via electronic interface contain lui ginal data; LABORATORY however they are lacking the format of the original re port. SERVICES Caution should be taken when reading/interpreting unfo rmatted reports. Name: ? KALEB CEDILLO ? Accession #: ? [id number] ? : ? 1970 (Age: 47 ) ??M ? Collect Date: ? 05/22/2017 ? Location: ? [facility] ? Receive Date: ? 017 ? Provider: PEGGY DIAS DO Copy to: HANANE MCCORMACK NP ? Final Pathologic Diagnosis: SUBMITTED TISSUE, RIGHT, EXCISIONAL BIOPSY: - Hemorrhoids. - Overlying mucosa with focal erosion; negative for dy splasia. Document reviewed and electronically signed by: NANCY PATRICK MD Report ??Date: 05/28/2017 09:05 By the signature above, the attending physician certif ies that he/she has personally conducted a gross and/or microscopic examin ation of the described specimens and rendered or confirmed the above diagnosi s. Specimen(s) Received: Hemorrhoid tissue Clinical History: Hemorrhoids, bleeding Gross Description: ? Received in formalin labelled with proper patient identification (initials S, J) and right tissue is an irregular piece of soft tissue (2.2 x 1.2 x 0.7 cm). One surface is covered by lazcano-brown, granular, wr inkled mucosa. The surgical margin is inked blue. The specimen is s ubmitted entirely in 1 and 2. CHANTAL Meraz (ASCP) 05/26/2017 9:24 AM End of Report Specimen Performing Organization Address City/State/ZIP Code Phon e Number [facility] LABORATORY [address] [place] [address] SERVICES documented in this encounter Visit Diagnoses Not on filedocumented in this encounter Care Teams Social Services Director Relationship Specialty Start Date End Date Hanane Mccormack NP PCP - General 01/30/09 02/23/19 [facility] [address] [place] [id number] documented as of this encounter
--- OUTSIDE RECORDS SUMMARY | 2022-05-02 11:04 | XMS_ITS | Encounter Summary ---
:1970 Author Organization [facility] Address [address] [place] [address] Care Team Providers Name Role Phone Hanane Pollock NP Primary Care Provider Reason for Visit Reason Comments Other Encounter Details Date Type Department Care Team Description 02/04/2017 [facility] Infectious Chelle Franz MD Other Disease - [address] [address] Social History Tobacco Use Types Packs/Day Years Used Date Current Every Day Smoker Cigarettes 1 Smokeless Tobacco: Never Used Alcohol Use Standard Drinks/Week Comments Yes 2 (1 standard drink = 0.6 oz [...] on filedocumented in this encounter Care Teams Dye House Wheel Operator Relationship Specialty Start Date End Date Hanane Pollock NP PCP - General 01/30/09 02/23/19 [facility] [address] [place] [address] documented as of this encounter
--- OUTSIDE RECORDS SUMMARY | 2022-05-02 11:04 | XMS_ITS | Encounter Summary ---
:1970 Author Organization [facility] Address [address] [place] [address] Care Team Providers Name Role Phone Hanane Pollock NP Primary Care Provider Reason for Visit Reason Comments Follow-up Encounter Details Date Type Department Care Team Description 08/31/2018 Office Visit [facility] Yovani Lit HIV ( human Infectious Disease J, DO immunodeficiency virus - [address] infection) ([facility]) [address] [place] [address] (Primary Dx) [address], [place] [address] Social History Tobacco Use Types [...] of this encounter Progress Notes Lit Pina, - 08/31/2018 0900 EST INFECTIOUS DISEASE CLINIC VISIT Patient name: Guanakito Cedillo Today's date: 08/31/2018 Chief Complaint: HIV follow-up care HPI: Mr. Cedillo is a 48 y.o. male with history significant for HIV who presents with routine follow up. 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 Most recent CD4 done in Aug 2018 was 716 and HIV VL pending but last HIV VL in September 2017 was < 20. Pt on raltegravir 600mg two tabs daily and odefsey. Very good with adherence. Exercises with yard work. Not working currently. 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 Both parties are on ART and have VL < 20. No complaints today. He has a persistent cough and some wt gain of 10 lbs but doing well otherwise. Review of Systems: 10-point review of systems is negative except as noted in the HPI. Past Medical History: Past Medical History: Diagnosis Date ??? HIV positive (CMS-HCC) (HCC-CMS) ??? 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 Cholecalciferol, Vitamin D3, 400 unit tablet Take 400 Units by mouth daily. doxazosin (CARDURA) 4 mg tablet Take 1 tablet by mouth every day (Patient not taking: Reported on 09/17/2017) gkiyozebyj-txafgoje-zyqgmd ala 200-25-25 mg tablet Take 1 Tab by mouth daily. lisinopril (PRINIVIL, ZESTRIL) 10 mg tablet Take 1 Tab by mouth daily. raltegravir 600 mg tablet Take 1,200 mg by mouth daily. Allergies Allergen Reactions ??? Penicillins Rash ??? 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 Marital status: Single Spouse name: Not on file ??? Number of children: Not on file ??? Years of education: Not on file ??? Highest education level: Not on file Social Needs ??? Financial resource strain: Not on file ??? Food insecurity - worry: Not on file ??? Food insecurity - inability: Not on file ??? Transportation needs - medical: Not on file ??? Transportation needs - non-medical: Not on file Occupational History ??? Not on file Tobacco Use ??? Smoking status: Current Every Day Smoker Packs/day: 0.20 Types: Cigarettes ??? Smokeless tobacco: Never Used Substance and Sexual Activity ??? Alcohol use: No Alcohol/week: 1.2 oz Types: 1 Shots of liquor, 1 Standard drinks or equivalent per week Comment: 1 drink every 2 weeks ??? Drug use: Yes Types: Marijuana ??? Sexual activity: Yes Partners: Male Other Topics Concern ??? Not on file Social History Narrative ??? Not on file Family history: Pertinent for dad of ESRD, HTN. Mom in 2018 of ? Pancreatic CA. The Family History was reviewed and is non-contributory for a past history of infection or immunocompromised state. Physical Exam General: NAD Skin: no rashes or lesions HEENT and oral exam: AT/NC. EOMI. PERRL. Sclera anicteric. Oropharnyx w/o erythema or exudates. Poordentition Neck: supple, no LAD CV: RRR, no MRG, S1 + S2 normal Pulm: CTAB, no wheezes, rales, or rhonchi Abd: BS+, soft, non-tender, non-distended, no hepatosplenomegaly Ext: Warm, well-perfused, no edema, 2+ pulses globally Neuro: A+Ox3, CN2-12 intact, strength 5/5 globally, sensation intact, gait stable Aug 2018 creat 1.07, LDL 126, AST and ALT normal Assessment and Plan: 1) HIV - Currently on Odefsey and daily, high dose ralteg - Last CD4 count Aug 2018, 719 - Last HIV viral load Pending, but < 20 in 2018 - OI prophylaxis: NA - Compliance: Perfect - Sexual activity: With partner, closed relationship, both are HIV infected, VL < 20 - G/C, RPR - HBV/HCV Natural hx of both which have cleared - Dental exam, Se[facility] dental [facility] Encouraged to get a PCM locally (Sabrina Jerome is a WORK MANAGER close to pt) See us in follow up in 6 months when he needs HIV VL 2) Health maintenance - Cholesterol: No results found for: CHOL, HDL, LDLBASE, TRIG, CHOLHDL - Diabetes: No results found for: HGBA1C - Colonoscopy: Due in september 2018 - Immunizations: flu 2017, needs pneumovax 23 and menactra #1 today, Tdap 2011, HBV natural infection, will need to stay on TAF-FTC. 3) HTN per PCM 4) Serial chest CT scan per PCM (pt is smoker) 5) Smoking, pt states he will try to cut down It has been a pleasure seeing Mr. Cedillo in clinic today. Lit Pina DO Pager [phone] Infectious Diseases documented in this encounter Plan of Treatment Not on filedocumented as of this encounter Visit Diagnoses Diagnosis HIV (human immunodeficiency virus infect ion) (HCC) - Primary Asymptomatic human immunodeficiency viru s (HIV) infection status documented in this encounter Care Teams Slag Skimmer Relationship Specialty Start Date End Date Hanane Pollock NP PCP - General 01/30/09 02/23/19 [facility] [address] [place] [address] documented as of this encounter
--- OUTSIDE RECORDS SUMMARY | 2022-05-02 11:04 | XMS_ITS | Encounter Summary ---
:1970 Author Organization [facility] [place] [address] Care Team Providers Name Role Phone Laura De Primary Care Provider [phone] Reason for Visit Consultation (Routine) - Specialty Diagnoses / Procedures Referred By Contact Refer red To Contact Dermatology Diagnoses skin lesion Laura De PA [facility] Dermatology [address] [facility] [address] [place] [address] [place] [address] Fax: Referral ID Status Reason Start Date Expiration Date Visits V isits Requested Authorized [id number] Consult, 04/16/2018 04/16/2019 6 6 [facility] Encounter Details Date Type Department Care Team Description 05/11/2018 Office Visit Dermatology at Aretha Dozier Condyloma acuminata Kaylyn Jean MD [address] [place] [address] [facility] [place], [place] [address] Social History Tobacco Use Types Packs/Day Years Used Date Current Every Day Smoker Cigarettes 0.5 15 Smokeless Tobacco: Never Used Sex Assigned at Date Recorded Not on file documented as of this encounter Progress Notes Aretha Lassiter MD - 05/11/2018 9:45 AM EDT DERMATOLOGY OUTPATIENT CLINIC NOTE Date of service: 05/11/2018 Guanakito Cedillo : 1970 Provider: Aretha Lassiter MD PROBLEM: Several Concerning lesions SKIN HISTORY: No history of skin cancer Pachydermia - thick skin on the palms Hair loss HPI Guanakito Cedillo is a 48 y.o. year old male. New patient to me and the clinic, referred by CHANTAL Hernandez. Patient states that he has lesions on the lower back and closer to the genital area that sometimes itch, he stretches them and then they will burn and sting. PCP concerned about possible HPV. Social History: Occupation: disabled Sunscreen: No Family History: None ADR: Allergies not on file CURRENT MEDICATIONS: No current outpatient medications on file. No current facility-administered medications for this visit. PROBLEM LIST: There is no problem list on file for this patient. ROS General: feeling well. Oriented X 3. Skin: denies other skin complaints EXAM General: NAD, pleasant, cooperative Skin: A focused skin exam was performed today including the buttock and perineum. Significant skin findings: -Left medial buttock and perineum 7 flesh colored pedunculated papules ASSESSMENT/PLAN Skin Tag vs. Condyloma Discussed with patient that it is hard to tell if the lesions are HPV related or not and even if they are the treatment is removal and monitor. Joint decision made to proceed with LN2 today Recommend following up in 6 months to re-examine. Procedure Note: Procedure: Destruction of lesion(s) with cryotherapy. Number: 6 Location: as above Discussed procedure and expectations including risks (including risk of hypopigmentation) and benefits. Verbal consent obtained. Frozen with LN2, 15-30 second thaw time, TWICE. There were no complications; the patient tolerated the procedure well. Post-procedure expectations and wound care were reviewed. RTC - 6 months Note initiated and routed to physician for review and change by: Mariola Del Valle, RN Michael, Mariola Del Valle RN, have performed the documentation for this encounter in the presence of and acting as a scribe for Aretha Lassiter MD. I, Dr. Aretha Lassiter, performed the visit service though my nurse assisted me in scribing the note. I reviewed and edited this note above, a scribed service performed by my nurse. On closure of this note I agree with the accuracy of the documentation. Aretha Lassiter MD Section of Dermatology [facility] documented in this encounter Plan of Treatment Upcoming Encounters Date Type Specialty Care Team Description 05/10/2022 Office Visit Dermatology documented as of this encounter Visit Diagnoses Diagnosis Condyloma acuminata Condyloma acuminatum documented in this encounter Care Teams Full Stack Python Developer Relationship Specialty Start Date End Date Laura De PA PCP - General Family Medicine 04/16/18 01/01/22 documented as of this encounter
--- OUTSIDE RECORDS SUMMARY | 2022-05-02 11:04 | XMS_ITS | Encounter Summary ---
:[address] [facility] Address [address] [place] [address] Care Team Providers Name Role Phone Hanane Pollock NP Primary Care Provider Encounter Details Date Type Department Care Team Description 11/17/2015 Documentation Visit [facility] Juli Franz , Infectious Disease - MD Main [address] [address] Social History Tobacco Use Types Packs/Day Years Used Date Current Every Day Smoker Cigarettes 1 Smokeless Tobacco: Never Used Alcohol Use Standard Drinks/Week Comments Yes 1 (1 standard drink = 0.6 oz [...] encounter Progress Notes Juli Franz MD - 11/17/2015 1125 EDT Guanakito Vinsonbarbara: Per pharmacy your prescription for Reyataz and Norvir will run out by 11/26. I think that we should change your meds at the time you are due for your next prescription. The plan will be: Continue Viread ( also called tenofovir) 300 mg daily Continue Epivir (also called lamivudine) 300 mg daily Continue Isentress (also called raltegravir) 400 mg twice daily STOP Reyetaz (atazanavir) STOP Norvir (ritonavir) START Edurant (also called rilpivirine) 25 mg once daily Will need blood work after on new regimen about 4 weeks and FU with me in [facility].the following month documented in this encounter Plan of Treatment Not on filedocumented as of this encounter Visit Diagnoses Not on filedocumented in this encounter Care Teams Consulting Business Developer Relationship Specialty Start Date End Date Hanane Pollock NP PCP - General 01/30/09 02/23/19 [facility] [address] [place] [address] documented as of this encounter
--- OUTSIDE RECORDS SUMMARY | 2022-05-02 11:04 | XMS_ITS | Encounter Summary ---
:1970 Author Organization [facility] Address [address] [place] [address] Care Team Providers Name Role Phone Hanane Pollock NP Primary Care Provider Reason for Visit Reason Onset Date Comments Medications Refill 12/29/2015 Encounter Details Date Type Department Care Team Description 12/29/2015 Telephone [facility] Juli Franz MD Ms dications Refill Infectious Disease - [facility] [address] [place] [address] Social History Tobacco Use Types Packs/Day Years [...] Sig Dispensed Refills Start Date End Date rilpivirine 25 mg Take 1 Tab by 30 Tab 5 12/29/201510/13 tabletIndications: Acquired mouth daily. Take immunodeficiency syndrome with food. (HCC-CMS) (HCC) Raltegravir (ISENTRESS) 400 Take 1 Tab by 60 Tab 5 12/2811/06/2016 mg tabletIndications: AIDS mouth 2 times (acquired immune deficiency daily. syndrome) (HCC-CMS) (HCC), AIDS (HCC-CMS) (HCC) tenofovir (VIREAD) 300 mg Take 1 Tab by 30 Tab 5 016 11/06/2016 tabletIndications: AIDS mouth daily. (acquired immune deficiency syndrome) (HCC-CMS) (HCC), AIDS (HCC-CMS) (HCC) lamiVUDine (EPIVIR) 300 mg Take 1 Tab by 30 Tab 5 201511/06/2016 tabletIndications: AIDS mouth daily. (acquired immune deficiency syndrome) (HCC-CMS) (HCC), AIDS (HCC-CMS) (HCC) documented in this encounter Miscellaneous Notes Telephone Encounter - Ceci Fletcher RN - 12/29/2015 1140 EDT E-RX Isentress #60 with 5 refills, Viread #30 with 5 refills, Epivir #30 with 5 refills, and Edurant#30 with 5 refills to [facility] in [facility]. elephone Encounter - Ceci Fletcher RN - 12/29/2015 0923 EDT L/M to call back to clarify medications that will be refilled today - 11/19 Telephone call note Discussed new regimen with: Isentress (Raltegravir)400 mg twice daily Viread 300 mg daily Epivir 300 mg daily And Edurant (rilpivirine) [address] of the ATVr (Katrina) Stressed that he would need to take the rilpivirine with food elephone Encounter - Beena Wayne - 12/29/2015 0844 EDT [facility] patient. Hanane Pollock out today. Partner Fernando states that Guanakito needs the following medications refilled TODAY: Viread, Isentress, Norvir, Reyataz, and a new medication that he does not know the name of. They use [facility] in [facility]. Fernando would like a call back to let him know when it is called in: [phone]. documented in this encounter Plan of Treatment Not on filedocumented as of this encounter Visit Diagnoses Diagnosis AIDS (acquired immune deficiency syndrom e) (HCC-CMS) ([facility] - Primary Human immunodeficiency virus [HIV] disea se AIDS (HCC-CMS) ([facility]) Human immunodeficiency virus [HIV] disea se Acquired immunodeficiency syndrome (HCC- CMS) ([facility]) Human immunodeficiency virus [HIV] disea se documented in this encounter Discontinued Medications Medication Sig Discontinue Reason Start Date End Date lamiVUDine (EPIVIR) 300 mg Take 1 Tab by Reorder 05/31/2015 12/29/2015 tabletIndications: AIDS mouth daily (acquired immune deficiency syndrome) (HCC-CMS) ([facility]), AIDS (HCC-CMS) ([facility]) tenofovir (VIREAD) 300 mg Take 1 Tab by Reorder 05/31/2015 0 12/29/2015 tabletIndications: AIDS mouth daily (acquired immune deficiency syndrome) (HCC-CMS) ([facility]), AIDS (HCC-CMS) ([facility]) Raltegravir (ISENTRESS) 400 Take 1 Tab by Reorder 05/31/2015 12/29/2015 mg tabletIndications: AIDS mouth 2 times (acquired immune deficiency daily syndrome) (HCC-CMS) ([facility]), AIDS (HCC-CMS) ([facility]) rilpivirine 25 mg Take 1 Tab by Reorder 11/15/2015 6 tabletIndications: Acquired mouth daily. immunodeficiency syndrome (HCC-CMS) ([facility]) documented as of this encounter Care Teams Group Rooms Coordinator Relationship Specialty Start Date End Date Hanane Pollock, SOM PCP - General 01/30/09 02/23/19 [facility] [address] [place] [address] documented as of this encounter
--- OUTSIDE RECORDS SUMMARY | 2022-05-02 11:04 | XMS_ITS | Encounter Summary ---
:1970 Author Organization [facility] Address [address] [place] [address] Care Team Providers Name Role Phone Hanane Pollock NP Primary Care Provider Reason for Visit Reason Comments Follow-up Encounter Details Date Type Department Care Team Description 02/21/[address] Office [address] [facility] Juli Franz AIDS (ac quired immunodeficiency syndrome), CD4 <=200 ([facility]) (Primary Dx); Infectious Disease - BMD Other s econdary hypertension; [facility] daily persistent headach e; [address] Chronic hepatitis B ([facility] ); [place], [place] [address] Social History Tobacco Use Types Packs/Day Years Used Date Current Every Day Smoker Cigarettes 1 Smokeless Tobacco: Never Used Tobacco Cessation: Ready to Quit: No; Co unseling Given: Yes Alcohol Use Standard Drinks/Week Comments No 1 [...] Sign Reading Time Taken Comments Blood Pressure 152/110 02/21/2016 0922 EDT Pulse - - Temperature - - Respiratory Rate - - Oxygen Saturation - - Inhaled Oxygen Concentration - - Weight 78 kg (172 lb) 02/21/2016 0922 EDT Height - - Body Mass Index 25.4 07/20/2015 1513 EST documented in this encounter [...] encounter Progress Notes Juli Franz MD - 02/21/2016 0921 EDT [facility] FOLLOWUP NOTE DOS 02/21/2016 Last seen: 11/14/2014 SUBJECTIVE: Guanakito presents for reevaluation of his HIV disease and his chronic hepatitis B and C. Having VICK x 1.5 weeks. Generalized head pain. 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 Ears popping today. No nasal congestion. No sore throat. No new visual complaints Changed his HAART in mid November. No missed doses. . Has dental FU soon Energy better Lost weight. Appetite good Minimal pink color on TP no BRBPR Since he was last seen he has been feeling fairly well. No acute illness since last seen Allergies reviewed and updated in [facility] MEDICATIONS: reviewed and updated in [facility] Denies missing doses Viread 300 mg once a day. Epivir 300 mg once a day. rilpivirine 25 mg once daily Isentress 400 mg twice daily. 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 Cleared virus SOCIAL HISTORY: Smoking 1 pack every day ETOH - none + MJ daily Lives with his snf partner who is also HIV + They do not practice safer sex They have chickens and roosters, cockatiel, 1 cat and 2 dogs at home. The one legged chicken (Denise) also lives in the house FAMILY HISTORY: Father was on HD before he . ? Reason for his ESRD. He was known to have HTN Mother alive REVIEW OF SYSTEMS: A 10-point review of systems was performed and was negative except for the findings mentioned above No respiratory complaints No GI or complaints No rash No fever, chills or NS OBJECTIVE: Visit Vitals ??? BP (!) 152/110 ??? Wt 78 kg (172 lb) ??? BMI 25.4 kg/m2 Alert and appropriate, NT, NAD, comfortable on RA No scleral icterus, conjunctivae pink. + subconjunctival hemorrhage on the left. Pupils equal. No oral lesions, mild pharyngeal erythema No cervical or supraclavicular lymphadenopathy. Lungs: No wheezes, rales, rhonchi, but poor air movement Cardiac exam reveals a regular rhythm. Abdomen: Bowel sounds are present, soft, nontender, no hepatosplenomegaly or masses appreciated. Extremities: He has no edema. He has chronic changes in his nails which are stable. No acute rash. Neuro - no reflexes elicitable in the LEs w/o enhancement manuvers DIAGNOSTIC DATA: Last labs: 01/05/2016 HIV PCR undetectable Chemistries significant for: creatinine 1.21 Bili 0.63 Alk phos 87 AST/ALT 19/49 Lytes wnl ASSESSMENT AND PLAN: 1. 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 He had done well on antiretroviral therapy. He has good adherence. He had recent increase in his Cr so we wanted to make a change to decrease risk for buttermaker nephrotoxicity. He has chronic HBV so want to continue TDF and 3TC. Use of the ATVand RTV with the TDF increases the TDF levels and increases risk for nephrotoxicity.Therefore after his last visit we switched him from ATV/RTV/RAL/TDF/3TC to 3TC/TDF/RAL and rilpivirine in place of the boosted ATV. He started the new regimen late November. He seems to be tolerating it well. I do not thinkthat the new VICK is related to the meds as he has been on the new meds for 2 1/2 months and the VICK just started about 10 days ago. Labs done after he was on the new meds about a month demonstrated undetectable HIV PCR and stable chemistries. Since he was last seen there has been more info on the use ofthe new formulation of tenofovir in pts with chronic HBV. Therefore I think that we should plan to transition his TDF/3TC to TAF/FTC in the near future. No urgency to do that at present. I do not want to make any additional changes right now. That means that eventually he could be in Odefsey once daily with raltegravir 400 mg twice daily. Will send him for blood work: CMP, PO4, HIV PCR, CK, HBV DNA. 2. Tobacco use - He never picked up the CHantix. Stressed again that quitting smoking is the best thing that he could do for his heart. He has a friend who recently required amputation for PVD and another friend who is undergoing laryngectomy for throat cancer. You would think that this would motivatehim to quit. 3. VICK - this is a new issue. His BP was very high today which is new. I took it several times duringthe visit and the systilic was in the 150 - 160 range and the diastolic was 110 - 120. I have to be concerned that this is contributing to his VICK. He has no other localizing complaints. Doubt related to the rilpivirine. I cannot find anything that lists VICK as an AE of rilpivirine. He has a h/o cryptococcal meningitis in the past but his HIV has been fully suppressed with a normal CD 4 count. 4. HTN - as above. New HTN. Not using ETOH. Still smoking but no excessive caffeine intake. Not using NSAIDS. He has a FH of HTN. I think that we need to follow his BP more closely. [facility] is a pt at [facility]. Hanane Rossi arranged for him to go in for BP checks weekly. In addition will order a renal artery US to R/O renal artery stenosis. 5. Chronic hepatitis B and hepatitis C. Liver biopsy 05/2010 was consistent with treated hep B, and there really was no evidence of activity of his hepatitis C; in fact, we were not able to amplify HCVfor genotyping and he has never been treated for his hep C. He has been on therapy for his hep B, and we did not see any evidence of progression of his fibrosis based on that biopsy. HBV DNA and HCV RNA undetectable on blood work 06/2015. He rarely uses ETOH. He is on no other hepatotoxic meds. Will need to follow his LFTS, especially on the new HAART. As he did not have cirrhosis unclear that he needs screening US. He has hemorroids but never had endoscopy to eval for varices, but unclear if this is indicated in absence of cirrhosis. Could consider fibroscan. 4. Health maintenance. Last lipid panel 06/2015. He was also supposed to have repeat syphilis serology. Hep A antibody neg so needs reimmunize with HAV vaccine - we did not have any vaccine available today. Tdap was given in 09/2011. Quantiferon neg. UTD on Prevnar. Had colo 09/2008. Urine for Chlamydia/GC 11/2015 neg. Has seen the dentist. 5 Lung nodule - he underwent biopsy of concerning lung nodule 05/2011 - path revealed AFB but culture was negative. He remains asymptomatic. Last CXR was stable. He continues to smoke so may be a candidate for screening CT for lung cancer. 6. Increased Cr - as above. Cr back down on present blood work. Most concerned with toxicity relatedto his HAART. Could have renal disease related to HBV. Unclear as to etiology of father's ESRD. Renal US neg but UA with hematuria. documented in this encounter Plan of Treatment Not on filedocumented as of this encounter Visit Diagnoses Diagnosis AIDS (acquired immunodeficiency syndrome ), CD4 <=200 ([facility]) (HCC) - Primary Human immunodeficiency virus [HIV] disea se Other secondary hypertension New daily persistent headache Chronic hepatitis B (HCC) Viral hepatitis B without mention of hep atic coma, chronic, without mention of hepatitis delta Tobacco abuse Tobacco use disorder documented in this encounter Historical Medications This list may reflect changes made after this encounter. Medication Sig Dispensed Refills Start Date End Date acetaminophen (TYLENOL Take 1,000 mg by 0 EXTRA STRENGTH) 500 mg mouth every 12 hours tablet as needed for Pain. added in this encounter Care Teams Jewel Hole Rough Opener Relationship Specialty Start Date End Date Hanane Pollock NP PCP - General 01/30/09 02/23/19 [facility] [address] [place] [address] documented as of this encounter
--- OUTSIDE RECORDS SUMMARY | 2022-05-02 11:04 | XMS_ITS | Encounter Summary ---
:1970 Author Organization [facility] Address [address] [place] [address] Care Team Providers Name Role Phone Hanane Pollock NP Primary Care Provider Reason for Visit Reason Comments Other Encounter Details Date Type Department Care Team Description 01/06/2017 Refill [facility] Infectious Chelle Franz MD Other Disease - [place] [address] [place] [address] Social History Tobacco Use Types Packs/Day [...] Sig Dispensed Refills Start Date End Date doxazosin (CARDURA) 4 mg Take 1 tablet by 30 Tab 0 01/0602/14/2017 tablet mouth every day ODEFSEY 200-25-25 mg Take 1 tablet by 30 Tab 0 7 02/14/2017 tablet mouth every day documented in this encounter Miscellaneous Notes Telephone Encounter - Ceci Fletcher RN - 01/06/2017 1724 EDT E-RX Odefsy and Cardura to [facility] pharmacy in [place]. Patient is seen in [facility]. documented in this encounter Plan of Treatment Not on filedocumented as of this encounter Visit Diagnoses Diagnosis Acquired immunodeficiency syndrome (HCC- [facility]) ([facility]) - Primary Human immunodeficiency virus [HIV] disea se documented in this encounter Discontinued Medications Medication Sig Discontinue Reason Start Date End Date varenicline (CHANTIX Take one 0.5mg Patient Stopped Taking 06/30/20 15 01/06/2017 ZULMA) 0.5 mg (11)- 1 mg tablet once daily (42) tablet x 3 days then take one 0.5mg tablet twice daily x 4 days then take one 1mg tablet twice daily uzotkuduwq-tkagenha-dhi Take 1 Tab by Reorder 11/06/2016 ofo ala 200-25-25 mg mouth daily. tablet doxazosin (CARDURA) 4 Take 1 Tab by Reorder 11/06/201601/06 mg tablet mouth daily. documented as of this encounter Care Teams Leg Breaker Relationship Specialty Start Date End Date Hanane Pollock NP PCP - General 01/30/09 02/23/19 [facility] [address] [place] [address] documented as of this encounter
--- OUTSIDE RECORDS SUMMARY | 2022-05-02 11:04 | XMS_ITS | Encounter Summary ---
:1970 Author Organization [facility] Address [address] [place] [address] Care Team Providers Name Role Phone Unknown, Provider Primary Care Provider Reason for Visit Reason Comments Follow-up Encounter Details Date Type Department Care Team Description 03/01/2019 Office Visit [facility] Lit Pina As ymptomatic HIV Infectious Disease - DO infection (HCC-CMS) [address] (Primary Dx) [address] [place] [address], [place] [address] (Wo rk) Social History Tobacco Use Types [...] Sig Dispensed Refills Start Date End Date emtricitabine-rilpivirine- Take 1 Tab by mouth 30 Tab 11 03/01/2019 tenofovir alafenam daily. (ODEFSEY) tablet raltegravir (ISENTRESS HD) Take 2 Tabs by 60 Tab 11 03/0104/23/2022 600 mg tablet mouth daily. documented in this encounter Progress Notes Lit Pina DO - 03/01/2019 0900 EDT Images from the original note were not included. Office Visit 08/31/2018 [facility] Infectious Disease - [facility] Lit Pina DO HIV (human immunodeficiency virus infection) ([facility]) Dx Follow-up Reason for Visit Progress Notes Expand All Collapse All INFECTIOUS DISEASE CLINIC VISIT Patient name: Guanakito Cedillo Today's date: 08/31/2018 Chief Complaint: HIV follow-up care HPI: Mr. Cedillo is a 48 y.o. male with history significant for HIV who presents with routine follow up. 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 Most recent CD4 done in Aug 2018 was 716 and HIV VL in Aug 2018 was < 20. Current labs from February are still pending but prelim labs show HIV VL < 20. CD4 pending. Pt on raltegravir 600mg two tabs daily and odefsey. Very good with adherence. Exercises with yard work. 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 Partner HIV infected, notusing condoms. Both parties are on ART and have VL < 20. Doing well in general, he plans to quit tobacco this fall with . Review of Systems: 10-point review of systems is negative except as noted in the HPI. Past Medical History: Past Medical History: Diagnosis Date ??? HIV positive ([facility] ([facility]) ??? Screening colonoscopy 2008 Cryptococcal meninginitis was [...] day (Patient not taking: Reported on 09/17/2017) hntjmagygv-kjvpkunx-lfdpsr ala 200-25-25 mg tablet Take 1 Tab by mouth daily. lisinopril (PRINIVIL, ZESTRIL) 10 mg tablet Take 1 Tab by mouth daily. raltegravir 600 mg tablet Take 1,200 mg by mouth daily. Allergies Allergen Reactions ??? Penicillins Rash ??? Sulfa (Sulfonamide Antibiotics) Hives Social History Tobacco: down to 1PPD Alcohol:Rare, heavy in past Recreational drugs:THC, daily Herbal:none Professional:Not working now but does some [employer] Relationships / Living Situation: Sounds stable Sexual: Yes, not using condoms. 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 Creat 1.18 AST 18 ALT 49 1) HIV, on odefsey and ralteg 1200mg PO daily. Seems comfortable with this regimen. HIV VL < 20, still waiting for CD4 count. Creat a little elevated but WNL. Would just follow for now., Refills sent to mail order pharmacy OI prophy NA HCV/HBV: Natural infection with both, both appeared cleared GC/chlamydia testing: Pt in closed relationship for years, will defer for now Need to see in 6 months for next eval 2) HBV in past, needs to always stay on TAF/3TC based regimen 3) Active smoking; Pt will try to quit with his this fall 4) Prev med: Pt given menactra #2 today and shingrix #1 today. Needs flu next month. Hep A vaccine in distant past. Tdap 2011. [place] slipped through the cracks this spring, pt will contact PCM to schedule. Pneumovax 2018, prevnar 2014. 5) HTN per PCM documented in this encounter Plan of Treatment Not on filedocumented as of this encounter Visit Diagnoses Diagnosis Asymptomatic HIV infection (HCC) - Prima ry Asymptomatic human immunodeficiency viru s (HIV) infection status documented in this encounter Care Teams Nursing Resident Relationship Specialty Start Date End Date Unknown, Provider, PCP - General 02/24/19 03/01/20 documented as of this encounter
--- OUTSIDE RECORDS SUMMARY | 2022-05-02 11:04 | XMS_ITS | Encounter Summary ---
:1970 Author Organization [facility] Address [address] [place] [address] Care Team Providers Name Role Phone None, Provider Primary Care Provider Unavailable Sabrina Jerome OPTOMETRIC TECHNOLOGIST Primary Care Provider Encounter Details Date Type Department Care Team Description 07/28/2020 Lab Requisition [facility] Outr Resulting Lab, Pathology & Laboratory Provider [facility] [address] [place] [address] Social History Tobacco Use Types Packs/Day Years [...] Name Priority Date/Time Associated Diagnosis Comme nts HCV RNA DETECT Routine 07/27/2020 16:30 Results f or this QUANT EST procedure are i n the results section. documented in this encounter Results HCV RNA DETECT QUANT (07/27/2020 16:30 EST) Pathologist Sig nature HCV RNA Qualitative Undetected Undetected [facility] Specimen Blood - Venous blood (substance) Narrative [facility] - 07/31/2020 14:44 EST The quantification range of this assay i s 15 IU/mL to 100,000,000 IU/mL. ??Testing was performed on the PADILLA Ampliprep/COB TaqMan HCV v2.0 ([employer] Performing Organization Address City/State/ZIP Code Phon e Number [facility] [address] [place] [address] SERVICES documented in this encounter Visit Diagnoses Not on filedocumented in this encounter Care Teams Fish Icer Relationship Specialty Start Date End Date None, Provider PCP - General 03/02/20 03/28/21 Sabrina Jerome, OPTOMETRIC TECHNOLOGIST PCP - General 03/29/21 [address] [place] [address] documented as of this encounter
--- OUTSIDE RECORDS SUMMARY | 2022-05-02 11:04 | XMS_ITS | Encounter Summary ---
:1970 Author Organization [facility] Address [address] [place] [address] Care Team Providers Name Role Phone None, Provider Primary Care Provider Unavailable Sabrina Jerome MANAGER SMALL BUSINESS Primary Care Provider Encounter Details Date Type Department Care Team Description 07/28/2020 Lab Requisition [facility] Outr Resulting Lab, Pathology & Laboratory Provider [facility] [address] [place] [address] Social History Tobacco Use Types Packs/Day Years [...] Associated Comments Diagnosis HIV 1 RNA Routine 07/27/2020 16:30 Results for this QUANTITATION EST procedure are i n the results section. T CELL SUBSETS Routine 07/27/2020 16:30 Results f or this EST procedure are i n the results section. documented in this encounter Results HIV 1 RNA QUANTITATION (07/27/2020 16:30 EST) HIV RNA Detection, Undetected Undetected [facility] Qual copies/mL LABORATORY SERVICES Specimen Blood - Venous blood (substance) Narrative [facility] - 07/31/2020 14:55 EST The quantification range of this assay i s 20 IU/mL to 10,000,000 IU/mL. ??Testing was performed on the PADILLA Ampliprep/PADILLA T aqMan HIV v2.0 ([employer] Performing Organization Address City/State/ZIP Code Phon e Number [facility] [address] [place] [address] SERVICES IMMUNODEFICIENCY PANEL (07/27/2020 16:30 EST) Pathologist Sig nature % CD3 76 62 - 87 % [facility] SERVICES % CD4 39 35 - 63 % [facility] % CD8 35 10 - 35 % [facility] SERVICES Absolute CD4 1,398 329-1,427 Cells/uL [facility] SERVICES Specimen Blood - Venous blood (substance) Performing Organization Address City/State/[facility] Phon e Number [facility] [address] [place] [address] SERVICES documented in this encounter Visit Diagnoses Not on filedocumented in this encounter Care Teams Silk Printer Relationship Specialty Start Date End Date None, Provider PCP - General 03/02/20 03/28/21 Sabrina Jerome, SOM PCP - General 03/29/21 [address] [place] [address] documented as of this encounter
--- OUTSIDE RECORDS SUMMARY | 2022-05-02 11:04 | XMS_ITS | Encounter Summary ---
:1970 Author Organization [facility] Address [address] [place] [address] Care Team Providers Name Role Phone Hanane Pollock NP Primary Care Provider Encounter Details Date Type Department Care Team Description 11/27/2015 Orders Only [facility] Infectious Chelle Franz MD Disease - [place] [address] [place] [address] Social History Tobacco Use Types [...] Diagnoses Not on filedocumented in this encounter Discontinued Medications Medication Sig Discontinue Reason Start Date End Date atazanavir (REYATAZ) 300 Take 1 Cap by mouth Alternate therapy 05/1411/27/2015 mg capsuleIndications: daily AIDS (acquired immune deficiency syndrome) (HCC-CMS) (HCC), AIDS (HCC-CMS) (HCC) ritonavir (NORVIR) 100 mg Take 1 Tab by mouth Alternate therapy 11/27/2015 tabletIndications: AIDS every 24 hours (acquired immune deficiency syndrome) (HCC-CMS) (HCC), AIDS (HCC-CMS) (HCC) documented as of this encounter Care Teams Assistant Reading Teacher Relationship Specialty Start Date End Date Hanane Pollock NP PCP - General 01/30/09 02/23/[address] [facility] [address] [place] [address] documented as of this encounter
--- OUTSIDE RECORDS SUMMARY | 2022-05-02 11:04 | XMS_ITS | Encounter Summary ---
:1970 Author Organization [facility] Address [address] [place] [address] Care Team Providers Name Role Phone None, Provider Primary Care Provider Unavailable Reason for Visit Reason Comments Follow-up Encounter Details Date Type Department Care Team Description 02/05/2021 Telemedicine [facility] Lit Pina, As ymptomatic HIV Infectious Disease - DO infection (HCC-CMS) [address] (Primary Dx) [address] [place] [address], [place] [id number] (Wo rk) Social History Tobacco Use Types [...] encounter Progress Notes Lit Pina, DO - 02/05/2021 0930 EDT I spent a total of 30 minutes on the date of this encounter meeting with the patient and reviewing documentation/coordinating care as described in the above note. No procedures were performed at the time of the visit. Division of Infectious Disease Follow up/Progress Note 01/31/21 10:48 TELEMEDICINE VIDEO VISIT Today's visit was provided [...] in patient???s medical or mental health care. HPI: Mr.??Snide??is a 51??y.o.??male with history significant for HIV who presents with routine follow up. 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 Most recent CD4 done in??January??2020??717 was ??and HIV VL in January 2021??was pending ?Pt on raltegravir 600mg two tabs daily and odefsey. Very good with adherence. 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 Both parties are on ART and have VL <??20. ?Closed relationship. ??His partner (Fernando) is followed at [facility] as well. ?? Doing well in general but still??not interested in quitting. ? Review of Systems: 10-point review of systems [...] day (Patient not taking: Reported on 09/17/2017) mlikokbzje-uksfxzvs-xbuben ala 200-25-25 mg tablet Take 1 Tab by mouth daily. lisinopril (PRINIVIL, ZESTRIL) 10 mg tablet Take 1 Tab by mouth daily. raltegravir 600 mg tablet Take 1,200 mg by mouth daily. ? Allergies Allergen Reactions ??? Penicillins Rash ??? Sulfa (Sulfonamide Antibiotics) Hives ?? 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 Social History ? Physical exam:??Deferred as this is a zoom visit. ? 1) HIV, on odefsey and ralteg 1200mg PO daily. ??Seems comfortable with this regimen. ?? -HIV VL pending??January 2021, CD4 717 in January 2021, ??He gets 90 days at a time??for ART supply so doing well.?? OI prophy NA HCV/HBV: ??Natural infection with both, both appeared cleared GC/chlamydia testing: ??Pt in closed relationship for years, will defer for now Need to see in 6 months for next eval ?? 2) HBV in past, needs to always stay on TAF/3TC based regimen ?? 3) Active smoking; ??Pt??not interested in quitting.? 4) Prev med:?Needs??menactra #2??UTD.?Shingrix UTD. ?Flu fall 2019. ??Hep A vaccine in distant past. ??Tdap 2011. ?[place]??Apr 2019, looked good so repeat in 10 years.?Pneumovax 2018, prevnar 2014. COVID 2020 ?? 5) HTN per PCM, sees Sabrina Jerome with good regularity. ?? 6) Had benign lesion removed from oral cavity in 2019, benign. ?Pt encouraged to stop smoking ?? Currently employed:??Yes ?? Adherence counseling:??Yes ?? Linguistic services:?No ?? Patient with HIV (-) partner:??Yes ?? HIV (-) partner tested within the last 12 months:??Not applicable ?? Partner notification discussed:??Not applicable ?? Social History Social History ? Tobacco Use Smoking Status Current Every Day Smoker ??? Packs/day: 0.20 ??? Types: Cigarettes Smokeless Tobacco Never Used ? Smoking cessation discussed:?Yes ?? Gonorrhea and chlamydia testing done in the past year:??No, not sexually active or in a mutually monogamous relationship over the past 12 mos ?? Oral exam done at this visit:??No ?? Seen by dentist in the past year.?Yes ?? Referred to dentist at this visit:?No ?? Housing:??Stable ?? HIV risk reduction counseling:??Yes ?? Screened for mental health:??Yes ?? Screened for substance abuse:??Yes ?? Current substance use (used more than once in the past 12 months):??marijuana documented in this encounter Plan of Treatment Not on filedocumented as of this encounter Visit Diagnoses Diagnosis Asymptomatic HIV infection (HCC) - Prima ry Asymptomatic human immunodeficiency viru s (HIV) infection status documented in this encounter Care Teams Director Business Integration Relationship Specialty Start Date End Date None, Provider PCP - General 03/02/20 03/28/21 documented as of this encounter
--- OUTSIDE RECORDS SUMMARY | 2022-05-02 11:04 | XMS_ITS | Encounter Summary ---
:1970 Author Organization [facility] Address [address] [place] [address] Care Team Providers Name Role Phone Hanane Pollock NP Primary Care Provider Reason for Visit Reason Onset Date Comments Medications Refill 02/14/2017 Encounter Details Date Type Department Care Team Description 02/14/2017 Telephone [facility] Jinny Francisco RN Med ications Refill Infectious Disease - [facility] [address] [place] [address] Social History Tobacco Use Types Packs/Day Years [...] this encounter Miscellaneous Notes Telephone Encounter - Jinny Francisco RN - 02/14/2017 1227 EDT See prior note documented in this encounter Plan of Treatment Not on filedocumented as of this encounter Visit Diagnoses Not on filedocumented in this encounter Care Teams Vegetable Grower Relationship Specialty Start Date End Date Hanane Pollock NP PCP - General 01/30/09 02/23/19 [facility] [address] [place] [address] documented as of this encounter
--- OUTSIDE RECORDS SUMMARY | 2022-05-02 11:04 | XMS_ITS | Encounter Summary ---
:1970 Author Organization [facility] Address [address] [place] [address] Care Team Providers Name Role Phone Hanane Pollock NP Primary Care Provider Reason for Visit Reason Comments Follow-up pt says no pain, but it does bleed and there is something hanging out a bit Consult (Routine/Next Available) - Specialty Report Received Specialty Diagnoses / Procedures Referred By Contact Refer red To Contact General Surgery Diagnoses Perianal mass SalvadorundJuli church MD Moore, Bharat Blanchard MD [address] [facility] [address] [address] Phone: Fax: Referral ID Status Reason Start Expiration Visits Visits Date Date Requested Authorized [id number] Specialty Specialty 1 1 Report Services 5 Received Required Encounter Details Date Type Department Care Team Description 07/20/2015 Office Visit [facility] Bharat Dowd I nternal hemorrhoids General Surgery - with complication Main [address] (Primary Dx) [address] [phone] [address] (Wo rk) Social History Tobacco Use Types Packs/Day Years Used Date Current Every Day Smoker Cigarettes 0.5 Smokeless Tobacco: Never Used Alcohol Use Standard [...] Sign Reading Time Taken Comments Blood Pressure - - Pulse - - Temperature - - Respiratory Rate - - Oxygen Saturation - - Inhaled Oxygen Concentration - - Weight 78.9 kg (174 lb) 07/20/2015 1513 EST Height 175.3 cm (5' 9) 07/20/2015 1513 EST Body Mass Index 25.7 07/20/2015 1513 EST documented in this encounter [...] documented as of this encounter Progress Notes Bharat Dowd MD - 07/20/2015 1551 EST Subjective: Patient ID: Guanakito Cedillo is an 45 y.o. male. Chief Complaint Patient presents with ??? Follow-up pt says no pain, but it does bleed and there is something hanging out a bit HPI He is referred to me by his infectious disease provider. He has a history of HIV but has not ever had a history of anal dysplasia. He does get occasional constipation and sits and has to strain to movehis bowels. This will aggravate some rectal bleeding on occasion. He had a colonoscopy in 2008 whichwas normal. At a recent visit with his infectious disease provider there was note made of a possible area of abnormality in the anal region. He was referred to me for further evaluation. Full 10 systems review performed as documented in this note and on intake sheet. Patient Active Problem List Diagnosis ??? Acquired immunodeficiency syndrome ??? Chronic active type B viral hepatitis ??? Chronic hepatitis C ??? Tobacco dependence syndrome ??? Alopecia ??? Health care maintenance ??? Lung nodule Past Medical History Diagnosis Date ??? Screening colonoscopy 2008 ??? HIV positive History reviewed. No pertinent past surgical history. History reviewed. No pertinent family history. Social History Substance Use Topics ??? Smoking status: Current Every Day Smoker -- 0.50 packs/day Types: Cigarettes ??? Smokeless tobacco: Never Used ??? Alcohol Use: No Comment: socially Current Outpatient Prescriptions on File Prior to Visit Medication Sig Dispense Refill ??? atazanavir (REYATAZ) 300 mg capsule Take 1 Cap by mouth daily 30 Cap 5 ??? lamiVUDine (EPIVIR) 300 mg tablet Take 1 Tab by mouth daily 30 Tab 5 ??? Raltegravir (ISENTRESS) 400 mg tablet Take 1 Tab by mouth 2 times daily 60 Tab 5 ??? ritonavir (NORVIR) 100 mg tablet Take 1 Tab by mouth every 24 hours 30 Tab 5 ??? tenofovir (VIREAD) 300 mg tablet Take 1 Tab by mouth daily 30 Tab 5 ??? varenicline (CHANTIX ZULMA) 0.5 mg (11)- 1 mg (42) tablet Take one 0.5mg tablet once daily x 3 days then take one 0.5mg tablet twice daily x 4 days then take one 1mg tablet twice daily 53 Tab 0 No current facility-administered medications on file prior to visit. Allergies Allergen Reactions ??? Penicillins Rash ??? Sulfa (Sulfonamide Antibiotics) Hives Review of Systems Constitutional: Negative for fever, chills and weight loss. Respiratory: Negative for shortness of breath. Cardiovascular: Negative for chest pain and palpitations. Gastrointestinal: Positive for blood in stool. Negative for abdominal pain. Endo/Heme/Allergies: Does not bruise/bleed easily. All other systems reviewed and are negative. - See HPI Objective: Ht 175.3 cm (69) Wt 78.926 kg (174 lb) BMI 25.68 kg/m2 Physical Exam Constitutional: He is oriented to person, place, and time. He appears well- developed and well-nourished. No distress. Eyes: Pupils are equal, round, and reactive to light. No scleral icterus. Pulmonary/Chest: Effort normal. No respiratory distress. Genitourinary: The anus was carefully inspected. There are no external lesions. There are no hemorrhoids or fissures. He has a small tag in the left anterior quadrant. In the right lateral position is a soft area most consistent with the xanthelasma. Digital rectal exam revealed no lesions or masses in the prostate was smooth without nodularity. The anoscope was lubricated and inserted. The anal canal was inspected circumferentially. He has enlarged internal hemorrhoids but no concerning masses or lesions. Musculoskeletal: Normal range of motion. Neurological: He is alert and oriented to person, place, and time. Skin: Skin is warm and dry. No rash noted. Assessment: I did not find any worrisome lesions on his anus today. For his rectal bleeding I would recommend a concerted effort at avoiding constipation, straining, spending a prolonged amount of time sitting on the toilet. Instructions were provided. Plan: He will need colonoscopy in 3 years. (K64.8) Internal hemorrhoids with complication (primary encounter diagnosis) Bharat Dowd MD No orders of the defined types were placed in this encounter. documented in this encounter Plan of Treatment Not on filedocumented as of this encounter Visit Diagnoses Diagnosis Internal hemorrhoids with complication - Primary Internal hemorrhoids with other complica tion documented in this encounter Discontinued Medications Medication Sig Discontinue Reason Start Date End Date Calcium-Cholecalciferol, Take 1 Tab by Patient Stopped Taking 07/20/2015 D3, (CALCARB) 600 mouth daily. mg(1,500mg) -200 unit Tab Multivitamins with Take 1 Tab by Patient Stopped Taking 07/20/2015 Minerals Tab mouth daily. documented as of this encounter Care Teams Superintendent Compressor Stations Relationship Specialty Start Date End Date Hanane Pollock NP PCP - General 01/30/09 02/23/19 [facility] [address] [place] [address] documented as of this encounter
--- OUTSIDE RECORDS SUMMARY | 2022-05-02 11:04 | XMS_ITS | Clinical Summary ---
:1970 Author Organization Address [address] [place] [address] Care Team Providers Name Role Phone Sabrina Jerome COMMERCIAL CREDIT REVIEWER Primary Care Provider Allergies Active Allergy Reactions Severity Noted Date Comments Penicillins Rash 05/14/2010 Sulfa (Sulfonamide Antibiotics) Hives 0 Medications Medication Sig Dispensed Refills Start Date End Date Status acetaminophen (TYLENOL Take 1,000 mg by 0 Active EXTRA STRENGTH) 500 mg mouth every 12 tablet hours as needed for Pain. doxazosin (CARDURA) 4 mg Take 1 tablet by 30 Tab 1 02/15/20 17 Active tablet mouth every day Additional Information Patient not taking. Reported on 09/17/2017 lisinopril Take 1 Tab by 7 Tab 0 03/12/2017 Acti ve (PRINIVIL, ZESTRIL) mouth daily. 10 mg tablet Cholecalciferol, Take 400 Units 0 Active Vitamin D3, 400 by mouth daily. unit tablet emtricitab-rilpivir Take 1 Tab by 30 Tab 5 09/17/2017 Active -tenofo ala mouth daily. 200-25-25 mg tablet raltegravir 600 mg Take 1,200 mg 60 Tab 5 09/17/2017 Active tablet by mouth daily. emtricitabine-rilpi Take 1 Tab by 30 Tab 11 03/01/2019 Active virine-tenofovir mouth daily. alafenam (ODEFSEY) tablet raltegravir Take 2 Tablets 60 Tablet 11 04/23/2022 05/23/20 Ac tive (ISENTRESS HD) 600 by mouth daily 22 mg tablet for 30 days. raltegravir Take 2 Tabs by 60 Tab 11 03/01/2019 04/23/20 Di scontinued (ISENTRESS HD) 600 mouth daily. 22 (Therapy completed) mg tablet Active Problems Problem Noted Date Lung nodule 03/30/2014 Overview: Had right apical nodule that was biopsie d in 2010 - necrotic material with AFB on bx but culture neg. 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 ART History:?Originally treated w ith IDV/CBV, then boosted IDV/CBV - tolerated meds poorly Changed to AZT/TDF/EFV developed increased HIV PCR but not high enough to do resistance testing D4T/EFV/TDF/3TC - developed peripheral n europathy so changed to: ABC/EFV/3TC/TDF (2008) 11/2009 changed to RAL/3TC/TDF/ATVr Last Assessment & Plan: HIV/AIDS - h/o cryptococcal meningitis ART History: Originally treated with IDV /CBV, then boosted IDV/CBV - tolerated meds poorly Changed to AZT/TDF/EFV developed increased HIV PCR but not high enough to do resistance testing D4T/EFV/TDF/3TC - developed peripheral n europathy so changed to: ABC/EFV/3TC/TDF (2008) 11/2009 changed to RAL/3TC/TDF/ATVr Chronic active type B viral hepatitis 01/25/2010 Chronic hepatitis C ([facility]) 01/25/2010 Overview: Never treated HCV RNA not detectable Unable to genotype 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 Alopecia 01/25/2010 Encounters Date Type Specialty Care Team Description 04/22/2022 Refill Infectious Disease Lit Pina Medic ations Refill J, DO 04/08/2022 Telemedicine Infectious Disease Lit Pina Asymp tomatic HIV J, DO infection (HCC) (Primary Dx) 03/28/2022 Lab Requisition Clinical Laboratory Outr Resulting Lab, Provider from Last 3 Months Immunizations Name Administration Dates Next Due Influenza Vaccine =>3yo Split 03/19/2013 Preservative Free IM Influenza Vaccine Quad (AFLURIA) PF 0.5 03/12/2017, 06/28/20 15, 03/30/2014 ml IM (3 yrs+) Pneumococcal Conj Vacc PCV13 (PREVNAR-13) 06/28/2015 IM Tdap (BOOSTRIX) Vaccine =>5YO IM 10/02/2011 Medical History Medical History Date Comments Screening colonoscopy 2008 HIV positive ([facility]) ([facility]) Social History Tobacco Use Types Packs/Day Years Used Date Current Every Day Smoker Cigarettes 0.2 Smokeless Tobacco: Never Used Tobacco Cessation: Ready to Quit: Yes; C ounseling Given: Yes Alcohol Use Standard Drinks/Week Comments [...] Assigned at Date Recorded Not on file Last Filed Vital Signs Vital Sign Reading Time Taken Comments Blood Pressure 110/78 09/17/2017 1013 EST Pulse 48 09/17/2017 1013 EST Temperature 36 ??C (96.8 ??F) 09/17/2017 1013 EST Respiratory Rate 16 05/23/2011 1619 EST Oxygen Saturation 100% 05/23/2011 1619 EST Inhaled Oxygen Concentration - - Weight 81.3 kg (179 lb 3.7 oz) 09/17/2017 1013 EST Height 175.3 cm (5' 9) 07/20/2015 1513 EST Body Mass Index 26.47 07/20/2015 1513 EST Plan of Treatment Health Maintenance Due Date Last Done Comments COVID-19 Vaccine (#1) 1970 Pneumococcal Immunization (2 - PPSV23 or 06/28/2016 015 PCV20) Hepatitis C Screen Completed 07/27/2020, 04/21/2001 Procedures Procedure Name Priority Date/Time Associated Comments Diagnosis HIV 1 RNA Routine 03/28/2022 7:40 Results for this QUANTITATION EDT procedure are i n the results section. T CELL SUBSETS Routine 03/28/2022 7:40 Results fo r this EDT procedure are i n the results section. from Last 3 Months Results (ABNORMAL) T CELL SUBSETS (03/28/2022 7:40 EDT) Pathologist Sig nature % CD3 72 56 - 84 % [facility] % CD4 33 31 - 64 % [facility] % CD8 39 9 - 39 % [facility] Absolute CD3 2,107 840-2,669 Cells/uL [facility] Absolute CD4 957 488-1,734 Cells/uL [facility] Absolute CD8 1,125 (H) 154-1,097 Cells/uL [facility] /8 Ratio 0.85 (L) >=0.90 [facility] Specimen Blood - Venous blood (substance) Performing Organization Address City/State/ZIP Code Phon e Number [facility] [address] [place] [address] SERVICES HIV 1 RNA QUANTITATION (03/28/2022 7:40 EDT) HIV RNA Detection, Undetected Undetected [facility] Qual copies/mL LABORATORY SERVICES Specimen Blood - Venous blood (substance) Narrative [facility] - 04/01/2022 13:45 EDT The quantification range of this assay i s 20 IU/mL to 10,000,000 IU/mL. ??Testing was performed using the Lucy HIV test ([employer] with the lucy [id number] System. Performing Organization Address City/State/ZIP Code Phon e Number [facility] [address] [place] [address] SERVICES from Last 3 Months Insurance Payer Benefit Plan / Subscriber ID Effective Phone Address T ype Group Dates MEDICARE MEDICARE A/B [id number] 2003-Prese [address] [place] [phone] [place]ID [place] [id number] 2019-Pres [address] Medicaid [place] ent [facility] [id number] Snide,Guanakito P Personal/Family Self 1970 [address] [place] [address] Snide,Guanakito P Personal/Family Self 1970 [address] [place] [facility] [address] Snbarbara,Guanakito P Personal/Family Self 1970 [address]) [place] [facility] [place] [address] Care Teams Clinical Leader Relationship Specialty Start Date End Date Sabrina Jerome, COMMERCIAL CREDIT REVIEWER PCP - General 03/29/[address] [place] [phone]
--- OUTSIDE RECORDS SUMMARY | 2022-05-02 11:04 | XMS_ITS | Encounter Summary ---
:1970 Author Organization [facility] Address [address] [place] [address] Care Team Providers Name Role Phone Sabrina Jerome NP Primary Care Provider Reason for Visit Reason Comments Follow-up Encounter Details Date Type Department Care Team Description 04/08/2022 Telemedicine [facility] Lit Pina, As ymptomatic HIV Infectious Disease - DO infection (HCC) [address] (Primary Dx) [address] [place] [address], [place] [address] (Wo rk) Social History Tobacco [...] encounter Progress Notes Lit Pina, DO - 04/08/2022 0900 EDT I spent a total of 30 minutes on the date of this encounter meeting with the patient and reviewing documentation/coordinating care as described in the above note. No procedures were performed at the time of the visit. Division of Infectious Disease Follow up/Progress Note 04/08/22 8:57 TELEMEDICINE VIDEO VISIT Today's visit was provided through telemedicine video conferencing: The location of the patient : Home The location of the provider: Office [facility] The following staff and their role did [...] patient???s medical or mental health care. HPI: .??Snide??is a 52??y.o.??male with history significant for HIV who presents with routine follow up. HIV diagnosed in 2001 when he presented with cryptococcal meningitis.??Most recent CD4 done inSept 2021 957, VL <20.?Pt on raltegravir 600mg two tabs daily and odefsey. Very good with adherence. 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 Both parties are on ART and have VL <??20. ?Closed relationship. ??His partner (Fernando) is followed at [facility] as well and they are typically seen together. ?? Doing well in general but still??not interested in quitting. ?? Getting work up for chest pain, workup neg to date. ?? Review of Systems: 10-point review of systems is negative except as noted in the HPI. Past Medical History: ? Past Medical History: Diagnosis Date ??? HIV positive (CMS-HCC) (HCC-CMS) ? Screening colonoscopy 2008 Cryptococcal meninginitis was presenting sx of AIDS HBV infection, has cleared his Ag HCV but also cleared his viremia Active smoking, states he'd Pulm nodule, biopsied in 2010, path showed [...] day (Patient not taking: Reported on 09/17/2017) vnmuyiupgy-oijktvut-zyflre ala 200-25-25 mg tablet Take 1 Tab [...] exam:??Deferred as this is a zoom visit. Wt 185 BP 132/70 ? 1) HIV, on odefsey and ralteg 1200mg PO daily.?Seems comfortable with this regimen. ?? -HIV VL Mar 2022 < 20, CD4 Mar 2022 957, ??He gets 90 days at a time??for ART supply so doing well.?? OI prophy NA HCV/HBV: ??Natural infection with both, both appeared cleared GC/chlamydia testing: ??Pt in closed relationship for years, will defer for now Need to see in 6 months for next eval ?? 2) HBV in past, needs to always stay on TAF/3TC based regimen ?? 3) Active smoking; ??Pt??agrees to try to cut down. He is spending about $75 a week on cigarettes. ?? 4) Prev med:?menactra #2??UTD.?Shingrix UTD x 2. ?Hep A vaccine in distant past. ??Tdap 2011, needs booster (will get at [facility] next month). ?[place]??Apr 2019, looked good so repeat in 10 years.?Pneumovax 2018, prevnar 2014. COVID 2020, due for booster but patient declines. Flu shot Apr 2022 ?? 5) HTN per [facility], sees Sabrina Jerome with good regularity. ?? [...] than once in the past 12 months):??marijuana ?? documented in this encounter Plan of Treatment Not on filedocumented as of this encounter Visit Diagnoses Diagnosis Asymptomatic HIV infection (HCC) - Prima ry Asymptomatic human immunodeficiency viru s (HIV) infection status documented in this encounter Care Teams Candy Cutter Hand Relationship Specialty Start Date End Date Sabrina Jerome, MINERAL SURVEYING TECHNICIAN PCP - General 03/29/21 [address] [place] [address] documented as of this encounter
--- OUTSIDE RECORDS SUMMARY | 2022-05-02 11:04 | XMS_ITS | Encounter Summary ---
:1970 Author Organization [facility] Address [address] [place] [address] Care Team Providers Name Role Phone Hanane Pollock NP Primary Care Provider Reason for Visit Reason Onset Date Comments Follow-up 11/20/2015 Encounter Details Date Type Department Care Team Description 11/20/2015 Telephone [facility] Infectious [place] RN Follow-up Disease - [place] [address] [place], [place] [id number] Social History Tobacco Use Types Packs/Day Years [...] this encounter Miscellaneous Notes Telephone Encounter - New Mix RN - 11/20/2015 1316 EDT Patient would like a call from Dr. Franz [phone], to discuss the medical situation they spokeabout at his 11/15/[address] [facility]. Explained Dr. Franz was at a conference today and wouldn't be able to return his call today. Explained that she is aware he called today. Mailed patient an after visit summary with the [employer] code, so he join Needle on line. Dr. Franz may change his medications, she will contact patient to discuss options. NEW MIX RN documented in this encounter Plan of Treatment Not on filedocumented as of this encounter Visit Diagnoses Not on filedocumented in this encounter Care Teams Intervention Analyst Relationship Specialty Start Date End Date Hanane Pollock NP PCP - General 01/30/09 02/23/19 [facility] [address] [place] [address] documented as of this encounter
--- OUTSIDE RECORDS SUMMARY | 2022-05-02 11:04 | XMS_ITS | Encounter Summary ---
:1970 Author Organization [facility] Address [address] [place] [address] Care Team Providers Name Role Phone Hanane Pololck NP Primary Care Provider Reason for Visit Reason Comments Other Encounter Details Date Type Department Care Team Description 03/09/2018 [facility] Infectious Chelle Franz MD Other Disease - [address] [address] Social History Tobacco Use [...] Telephone Encounter - Ceci Fletcher RN - 03/10/2018 1528 EDT Left message on Guanakito' [employer] phone [phone] (M). [facility]. documented in this encounter Plan of Treatment Not on filedocumented as of this encounter Visit Diagnoses Not on filedocumented in this encounter Care Teams Carbon Paper Interleafer Relationship Specialty Start Date End Date Hanane Pollock NP PCP - General 01/30/09 02/23/19 [facility] [address] [place] [address] documented as of this encounter
--- OUTSIDE RECORDS SUMMARY | 2022-05-02 11:04 | XMS_ITS | Encounter Summary ---
:1970 Author Organization [facility] Address [address] [place] [address] Care Team Providers Name Role Phone Sabrina Jerome NP Primary Care Provider Encounter Details Date Type Department Care Team Description 03/28/2022 Lab Requisition [facility] Outr Resulting Lab, Pathology & Laboratory Provider [facility] [address] [id number] Social History Tobacco Use Types Packs/Day Years [...] Associated Comments Diagnosis T CELL SUBSETS Routine 03/28/2022 7:40 Results fo r this EDT procedure are i n the results section. HIV 1 RNA Routine 03/28/2022 7:40 Results for this QUANTITATION EDT procedure are i n the results section. documented in this encounter Results HIV 1 RNA QUANTITATION (03/28/2022 7:40 EDT) HIV RNA Detection, Undetected Undetected [facility] Qual copies/mL LABORATORY SERVICES Specimen Blood - Venous blood (substance) Narrative [facility] LABORATORY SERVICES - 04/01/2022 13:45 EDT The quantification range of this assay i s 20 IU/mL to 10,000,000 IU/mL. ??Testing was performed using the Lucy HIV test ([employer] with the lucy [employer] System. Performing Organization Address City/State/[facility] Phon e Number [facility] LABORATORY [address] [place] [address] SERVICES (ABNORMAL) T CELL SUBSETS (03/28/2022 7:40 EDT) Pathologist Sig nature % CD3 72 56 - 84 % [facility] LABORATORY SERVICES % CD4 33 31 - 64 % [facility] LABOR[facility] SERVICES % CD8 39 9 - 39 % [facility]OR[facility] SERVICES Absolute CD3 2,107 840-2,669 Cells/uL [facility]OR[facility] SERVICES Absolute CD4 957 488-1,734 Cells/uL [facility]OR[facility] SERVICES Absolute CD8 1,125 (H) 154-1,097 Cells/uL [facility] SERVICES 4/8 Ratio 0.85 (L) >=0.90 [facility]OR[facility] SERVICES Specimen Blood - Venous blood (substance) Performing Organization Address City/State/[facility] Phon e Number [facility] LABOR[facility]ORY [address] [place] [address] SERVICES documented in this encounter Visit Diagnoses Not on filedocumented in this encounter Care Teams Terminal Manager Relationship Specialty Start Date End Date Sabrina Jerome NP PCP - General 03/29/21 [address] [place] [address] documented as of this encounter
--- OUTSIDE RECORDS SUMMARY | 2022-05-02 11:04 | XMS_ITS | Encounter Summary ---
:1970 Author Organization [facility] Address [address] [place] [address] Care Team Providers Name Role Phone Hanane Pollock NP Primary Care Provider Reason for Visit Reason Comments Other Encounter Details Date Type Department Care Team Description 09/10/2017 [facility] Infectious Chelle Franz MD Other Disease - [address] [address] Social History Tobacco Use [...] Diagnosis AIDS (acquired immune deficiency syndrom e) ([facility]) (HCC) Human immunodeficiency virus [HIV] disea se AIDS ([facility]) ([facility]) Human immunodeficiency virus [HIV] disea se documented in this encounter Care Teams Band Instrument Maker Relationship Specialty Start Date End Date Hanane Pollock NP PCP - General 01/30/09 02/23/19 [facility] [address] [place] [id number] documented as of this encounter
--- OUTSIDE RECORDS SUMMARY | 2022-05-02 11:04 | XMS_ITS | Encounter Summary ---
:1970 Author Organization [facility] Address [address] [place] [address] Care Team Providers Name Role Phone Unknown, Provider Primary Care Provider Reason for Visit Reason Comments HIV Positive/AIDS Encounter Details Date Type Department Care Team Description 08/16/2019 Office Visit [facility] Lit Pina red Infectious Disease J, DO immunodeficiency - [address] syndrome ([facility]) [address] [place] [address] (Primary Dx) [address] [place] [address] Social History Tobacco Use Types [...] this encounter Progress Notes Lit Pina, - 08/16/2019 0900 EST Patient name: Guanakito Cedillo Today's date: 16 August 2019 Chief Complaint: HIV follow-up care HPI: Mr. Cedillo is a 48 y.o. male with history significant for HIV who presents with routine follow up. 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 Most recent CD4 done in Jul 2019 was 836 and HIV VL in Jul 2019 was < 20. . Pt on raltegravir 600mg two tabs daily and odefsey. Very good with adherence. Exercises with yard work. 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 Both parties are on ART and have VL < 20. ?? Doing well in general, he planned to quit tobacco in 2018 But still smoking. He did cut it down to 1/2 ppd. ?? Review of Systems: 10-point review of systems is negative except as noted in the HPI. Past Medical History: ? Past Medical History: Diagnosis Date ??? HIV positive (CMS-HCC) (HCC-CMS) ? Screening colonoscopy 2009 Cryptococcal meninginitis was presenting sx of AIDS HBV infection, has cleared his Ag HCV but also cleared his viremia Active smoking Pulm nodule, biopsied in 2010, path showed AFB but cx neg so no tx Past Surgical History: None ?? Current Outpatient Medications: ?? acetaminophen (TYLENOL EXTRA STRENGTH) 500 mg tablet Take 1,000 mg by mouth every 12 hours as neededfor Pain. Cholecalciferol, Vitamin D3, 400 unit tablet Take 400 Units by mouth daily. doxazosin (CARDURA) 4 mg tablet Take 1 tablet by mouth every day (Patient not taking: Reported on 09/17/2017) [id number]-tnklwpan-pwnfcd ala 200-25-25 mg tablet Take 1 Tab by mouth daily. lisinopril (PRINIVIL, ZESTRIL) 10 mg tablet Take 1 Tab by mouth daily. raltegravir 600 mg tablet Take 1,200 mg by mouth daily. ? Allergies Allergen Reactions ??? Penicillins Rash ??? Sulfa (Sulfonamide Antibiotics) Hives ?? 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 Social History ? Physical exam: ?? Wt 191 BP 152/100 General AAOx3, NAD, pleasant Skin no rash Chest CTA bilat Ab soft, non tender,non distended, no HSM Heart RR, no murmur Neuro CN 2-12 intact, Dental fair dentition, gets good dental care Jul 2019 creat 1.04, ?? 1) HIV, on odefsey and ralteg 1200mg PO daily. Seems comfortable with this regimen. HIV VL < 02 Aug 2019, CD4 836, Refills sent to mail order pharmacy. He gets 30 days at a time. OI prophy NA HCV/HBV: Natural infection with both, both appeared cleared GC/chlamydia testing: Pt in closed relationship for years, will defer for now Need to see in 6 months for next eval ?? 2) HBV in past, needs to always stay on TAF/3TC based regimen ?? 3) Active smoking; Pt will try to quit with his this fall ?? 4) Prev med: Needs menactra #2 today but we dont have the supply. We did give shingrix #2 today. [place] 2018. Hep A vaccine in distant past. Tdap 2011. [place] Apr 2019, looked good so repeat in 10 years. Pneumovax 2019, prevnar 2014. ?? 5) HTN per PCM ?? 6) Had benign lesion removed from oral cavity in 2019, benign. Pt encouraged to stop smoking documented in this encounter Plan of Treatment Not on filedocumented as of this encounter Visit Diagnoses Diagnosis Acquired immunodeficiency syndrome (HCC- CMS) (HCC) - Primary Human immunodeficiency virus [HIV] disea se documented in this encounter Care Teams Health Information Management Director Relationship Specialty Start Date End Date Unknown, Provider, PCP - General 02/24/19 03/01/20 documented as of this encounter
--- OUTSIDE RECORDS SUMMARY | 2022-05-02 11:04 | XMS_ITS | Encounter Summary ---
:1970 Author Organization Health system Address [address] [id number] Care Team Providers Name Role Phone Hanane Pollock NP Primary Care Provider Encounter Details Date Type Department Care Team Description 11/06/2016 Orders Only [facility] Juli Franz, AIDS (acquired immune deficiency syndrome) ([facility]); Infectious Disease - AIDS ([facility]) Main [place] [address] [place] [address] Social History Tobacco Use Types Packs/Day Years [...] Sig Dispensed Refills Start Date End Date Raltegravir (ISENTRESS) Take 1 Tab by mouth 60 Tab 5 03/12/2017 400 mg tabletIndications: 2 times daily. AIDS (acquired immune deficiency syndrome) (HCC-CMS) ([facility]), AIDS (HCC-CMS) ([facility]) jfjcodcbfw-dkduahgq-pgmtlg Take 1 Tab by mouth 30 Tab 1 11/06/2016 01/06/2017 ala 200-25-25 mg tablet daily. documented in this encounter Plan of Treatment Not on filedocumented as of this encounter Visit Diagnoses Diagnosis AIDS (acquired immune deficiency syndrom e) (HCC-CMS) ([facility]) Human immunodeficiency virus [HIV] disea se AIDS (HCC-CMS) ([facility]) Human immunodeficiency virus [HIV] disea se documented in this encounter Discontinued Medications Medication Sig Discontinue Reason Start Date End Date rilpivirine 25 mg Take 1 Tab by 12/29/2015 7 tabletIndications: Acquired mouth daily. immunodeficiency syndrome Take with food. (HCC-CMS) ([facility]) tenofovir (VIREAD) 300 mg Take 1 Tab by 12/29/2015 0 11/06/2016 tabletIndications: AIDS mouth daily. (acquired immune deficiency syndrome) (HCC-CMS) (HCC), AIDS (HCC-CMS) ([facility]) lamiVUDine (EPIVIR) 300 mg Take 1 Tab by 12/29/2015 11/06/2016 tabletIndications: AIDS mouth daily. (acquired immune deficiency syndrome) (HCC-CMS) (HCC), AIDS (HCC-CMS) ([facility]) Raltegravir (ISENTRESS) 400 Take 1 Tab by Reorder 12/29/2015 11/06/2016 mg tabletIndications: AIDS mouth 2 times (acquired immune deficiency daily. syndrome) (HCC-CMS) ([facility]), AIDS (HCC-CMS) ([facility]) documented as of this encounter Care Teams Dock Superintendent Relationship Specialty Start Date End Date Hanane Pollock NP PCP - General 01/30/09 02/23/19 [facility] [address] [place] [address] documented as of this encounter
--- OUTSIDE RECORDS SUMMARY | 2022-05-02 11:04 | XMS_ITS | Encounter Summary ---
:1970 Author Organization [facility] Address [address] [place] [address] Care Team Providers Name Role Phone Hanane Pollock NP Primary Care Provider Reason for Visit Reason Onset Date Comments Medication Management 11/20/2015 Encounter Details Date Type Department Care Team Description 11/20/2015 Telephone [facility] Juli Franz, Medic ation Management Infectious Disease - [place] Main [address] [address] Social History Tobacco Use Types Packs/Day Years [...] this encounter Miscellaneous Notes Telephone Encounter - Beena Wayne - 11/21/2015 0859 EDT Faxed note to Hanane Pollock at [facility]. elephone Encounter - Juli Franz MD - 11/20/2015 1641 EDT I had left a message for Guanakito last week and he returned my call. I had mailed him a written note on 11/16 outlining the medication changes btu he has not received it yet. At the time of his visit 11/14 we discussed changing his HAART. He will be due for new RX next week per the pharmacy. His recent labs demonstrated undetectable HIV PCR so I think that this is a good timeto make the change. He has had intermittent increase in Cr with low PO4 and hematuria on UA. Concerned about group home toxicity of TDF but unable to Dc TDF as it is treating his HBV and his HIV. Concurrent use of ATVr with TDF can result in increased TDf levels and increased risk for AEs. Therefore would like to get him off the ATVr. Discussed new regimen with: Isentress 400 mg twice daily Viread 300 mg daily Epivir 300 mg daily And Edurant (rilpivirine) [address] of the ATVr Stressed that he would need to take the rilpivirine with food In review he takes his Isentress between 4 am and 7 am in the am on an empty stomach and takes the second dose at bedtime (~ 9pm on an empty stomach) Recommend that he take the second dose of Isentress with the dose of rilpivirine with dinner (~7pm) He will take the am dose of Isentress with his TDF and 3TC in the am as he has been doing. He will need labs after he has beneon the meds for ~ 4 - 6 weeks FU in [facility] in [facility] in January documented in this encounter Plan of Treatment Not on filedocumented as of this encounter Visit Diagnoses Not on filedocumented in this encounter Care Teams Counseling Case Manager Relationship Specialty Start Date End Date Hanane Pollock NP PCP - General 01/30/09 02/23/19 [facility] [address] [place] [address] documented as of this encounter
--- OUTSIDE RECORDS SUMMARY | 2022-05-02 11:04 | XMS_ITS | Encounter Summary ---
:1970 Author Organization [facility] Address [address] [place] [address] Care Team Providers Name Role Phone Hanane Pollock NP Primary Care Provider Reason for Visit Reason Onset Date Comments Appointment Related 04/27/2018 Encounter Details Date Type Department Care Team Description 04/27/2018 Telephone [facility] Bharat Dowd A ppointment Related General Surgery - [address] [address] [address], [place] [address] (Wo rk) Social History Tobacco [...] this encounter Miscellaneous Notes Telephone Encounter - Nakia Sosa - 04/27/2018 0594 EDT Calling for his partner to make colo appointment as directed by the letter sent out. 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 documented in this encounter Plan of Treatment Not on filedocumented as of this encounter Visit Diagnoses Not on filedocumented in this encounter Care Teams Simulation Technician Relationship Specialty Start Date End Date Hanane Pollock NP PCP - General 01/30/09 02/23/19 [facility] [address] [place] [address] documented as of this encounter
--- OUTSIDE RECORDS SUMMARY | 2022-05-02 11:04 | XMS_ITS | Encounter Summary ---
:1970 Author Organization [facility] Address [address] [place] [address] Care Team Providers Name Role Phone Hanane Pollock NP Primary Care Provider Reason for Visit Reason Comments Follow-up Encounter Details Date Type Department Care Team Description 11/15/2015 Office Visit [facility] Juli Franz Acquired immunodeficiency syndrome [facility] ([facility]); Infectious Disease - BMD Encount er for long-term current use of high risk medication; [facility] Chronic hepatitis B ([facility] ) [address] [place] [address] [id number] Social History Tobacco Use Types Packs/Day Years Used Date Current Every Day Smoker Cigarettes 1 Smokeless Tobacco: Never Used Tobacco Cessation: Ready to Quit: No; Co unseling Given: Yes Alcohol Use Standard Drinks/Week Comments Yes 1 [...] Sign Reading Time Taken Comments Blood Pressure 132/84 11/15/2015 0923 EDT Pulse - - Temperature 35.9 ??C (96.6 ??F) 11/15/2015 0859 EDT Respiratory Rate - - Oxygen Saturation - - Inhaled Oxygen Concentration - - Weight 83 kg (182 lb 15.7 oz) 11/15/2015 0859 EDT Height - - Body Mass Index 27.02 07/20/2015 1513 EST documented in this encounter [...] mg Take 1 Tab by 30 Tab 1 11/15/201512/12 tabletIndications: Acquired mouth daily. immunodeficiency syndrome (HCC-CMS) (HCC) documented in this encounter Progress Notes Juli Franz MD - 11/15/2015 0859 EDT [facility] FOLLOWUP NOTE DOS 11/15/2015 Last seen: 06/28/2015 SUBJECTIVE: Guanakito presents for reevaluation of his HIV disease and his chronic hepatitis B and C. Since he was last seen he has been feeling fairly well. No acute illness since last At the time of his last visit his CR was up to 1.55 so we repeated it and it was down to 1.27. UA demonstrated 3 -5 RBCs. Renal US was nl C/o Eye ache - not using his glasses Sensitive to certain types of light Energy same Does not think that he is depressed His appetite has been good. - gained weight No other acute complaints today rectal bleeding with every 3 -4 bowel movements or every couple days; persists for a day. No anal discomfort Did see surgery 07/2015 and exam was only remarkable for internal hemorrhoids. No other concerning lesions Allergies reviewed and updated in [facility] MEDICATIONS: reviewed and updated in [facility] Denies missing doses Viread 300 mg once a day. Ritonavir 100 mg once a day. Epivir 300 mg once a day. Atazanavir 300 mg once a day. Isentress 400 mg twice daily. 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 Cleared virus SOCIAL HISTORY: Smoking 1 pack every day ETOH - 1 episode of heavy drinking in past 3 weeks About 2 beer/wine per week usually + MJ daily Lives with his mcf[facility] partner who is also HIV + They do not practice safer sex They have 29 chickens and 4 roosters, cockatiel, 1 cat and 2 dogs at home. The one legged chicken (Denise) also lives in the house FAMILY HISTORY: Father was on HD before he . ? Reason for his ESRD. He was known to have HTN Mother alive REVIEW OF SYSTEMS: A 10-point review of systems was performed and was negative Stabbing sensation in feet - mostly localized to plantar surface. Denies numbness. No calf pain with walking No change in vision - still blurry but not wearing his glasses as he broke them and he cannot affordnew glasses No VICK No oral lesions, dysphagia or odynophagia He does not complain of SOB with exertion on a regular basis Denies chronic cough No CP No change in bowels No abd pain, N, V No sx + BRBPR as above No rash No fever, chills or NS Has seen the dentist recently OBJECTIVE: BP 132/84 mmHg Temp(Src) 35.9 ??C (96.6 ??F) Wt 83 kg (182 lb 15.7 oz) Alert and appropriate, NT, NAD, comfortable on RA No scleral icterus, conjunctivae pink. Pupils equal. No oral lesions - he now has partial plates No cervical or supraclavicular lymphadenopathy. Lungs: No wheezes, rales, rhonchi, but poor air movement Cardiac exam reveals a regular rhythm. Abdomen: Bowel sounds are present, soft, nontender, no hepatosplenomegaly or masses appreciated. Extremities: He has no edema. He has chronic changes in his nails which are stable. Pulses 2 + bilatin his feet No acute rash. Neuro - motor 5/5. Trace right patellar reflex with enhancement manuvers but unable to elicit a patella reflex on the left even with enhancement manuvers. No achilles reflex. Vibratory sensation in hisfeet intact DIAGNOSTIC DATA: Last labs: 11/08/2015 CBC: WBC 9.10 Hct 44.9 Plts 210K Chemistries significant for: creatinine 1.16 PO4 2.5 glc 86 Bili 1.68 Alk phos 96 AST/ALT 17/41 Lytes wnl HIV PCR undetectable CD 4 = 966 (30 %) ASSESSMENT AND PLAN: 1. 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 He has done well on his present antiretroviral therapy. I think he has good adherence. His HIV PCR is undetectable. He has tolerated the meds well except for increase in his Cr and low PO4 suggesting an effect of the TDF. He has chronic HBV sowant to continue TDF and 3TC. Use of the ATV and RTV with the TDF increases the TDF levels and increases risk for nephrotoxicity. I think that we need to try to get him off the boosted PI. Reviewed allof his past ART history. He never failed a PI. He developed increased HIV PCR while on ABC/TDF/3TC/EFV and was changed to present regimen. His HIV PCR was too low to perform resistance testing. No immed iate need to change his regimen as Cr was back down on most recent labs. His hematuria and low PO4 are concerning and we need to get him off the ATVr with the TDF. Will make the change with his next RX. Plan: Continue TDF and 3TC STOP ATV/r Continue Raltegravir Start rilpivirine 25 mg once daily Will need blood work after on new regimen about 4 weeks and FU with me in [facility]. 2. Tobacco use - He is not planning on quitting. Encouraged him to quit. He never picked up the CHantix. 3. Chronic hepatitis B and hepatitis C. At the time of his liver biopsy 05/2010 it was consistent with treated hep B, and there really was no evidence of activity of his hepatitis C; in fact, we were not able to amplify HCV for genotyping and he has never been treated for his hep C. He has been on therapy for his hep B, and we did not see any evidence of progression of his fibrosis based on that biopsy. HBV DNA and HCV RNA undetectable on blood work 06/2015. Encouraged him to limit his ETOH. He is on no other hepatotoxic meds. Will need to follow his LFTS, especially on the new HAART. As he did noit have cirrhosis unclear that he needs screening US. He has hemorroids but never had endoscopy to eval for varices, but unclear if this is indicated in absence of cirrhosis. Could consider fibroscan. 4. Health maintenance. I do not have results of last lipid panel 06/2015 - we will need to get the lab to fax a copy. He was also supposed to have repeat syphilis serology. Hep A antibody neg so needs reimmunize with HAV vaccine - we did not have any vaccine available today. Tdap was given in 09/2011. Quantiferon neg. UTD on Prevnar. Had colo 09/2008. Urine for Chlamydia/GC today. 5 Lung nodule - he underwent biopsy [...] Renal US neg but UA with hematuria. Plan to change HAART. 7. BRBPR - secondary to hemorrhoids 8. Painful feet. ? Neuropathy. Absent reflexes but sensation intact. documented in this encounter Miscellaneous Notes Assessment & Plan Note - Juli Franz MD - 11/15/20152046 EDTAssociated Problem(s): Acquired immunodeficiency syndrome ([facility]) ([facility]) HIV/AIDS - h/o cryptococcal meningitis ART History: Originally treated with IDV/CBV, then boosted IDV/CBV - tolerated meds poorly Changed to AZT/TDF/EFV developed increased HIV PCR but not high enough to do resistance testing D4T/EFV/TDF/3TC - developed peripheral neuropathy so changed to: ABC/EFV/3TC/TDF (2008) 11/2009 changed to RAL/3TC/TDF/ATVr documented in this encounter Plan of Treatment Not on filedocumented as of this encounter Visit Diagnoses Diagnosis Acquired immunodeficiency syndrome (HCC- CMS) ([facility]) - Primary Human immunodeficiency virus [HIV] disea se Encounter for long-term current use of h igh risk medication Chronic hepatitis B (HCC) Viral hepatitis B without mention of hep atic coma, chronic, without mention of hepatitis delta documented in this encounter Care Teams Superintendent Recreation Relationship Specialty Start Date End Date Hanane Pollock NP PCP - General 01/30/09 02/23/19 [facility] [address] [place] [address] documented as of this encounter
--- OUTSIDE RECORDS SUMMARY | 2022-05-02 11:04 | XMS_ITS | Encounter Summary ---
:1970 Author Organization [facility] Address [address] [place] [address] Care Team Providers Name Role Phone Hanane Pollock NP Primary Care Provider Reason for Visit Reason Comments Follow-up Encounter Details Date Type Department Care Team Description 09/17/2017 Office Visit [facility] Juli Farnz, AIDS (acquired immune deficiency syndrome) ([facility]) ([facility]) (Primary Dx); Infectious Disease - MD Valarie mane hypertension; [facility] Tobacco use; [address] Chronic active hepatitis B w ithout delta agent (CMS-HCC) ([facility]); [place], [place] [address] Encounter for long-term curr ent use of high risk medication [phone] Social History Tobacco Use Types Packs/Day Years [...] (96.8 ??F) 09/17/2017 1013 EST Respiratory Rate - - Oxygen Saturation - - Inhaled Oxygen Concentration - - Weight 81.3 kg (179 lb 3.7 oz) 09/17/2017 1013 EST Height - - Body Mass Index 26.47 07/20/2015 1513 EST documented in this encounter [...] Sig Dispensed Refills Start Date End Date raltegravir 600 mg tablet Take 1,200 mg by 60 Tab 5 01/2018 mouth daily. nclcejuguq-mfzpyobw-keohfk Take 1 Tab by mouth 30 Tab 5 09/17/2017 ala 200-25-25 mg tablet daily. documented in this encounter Progress Notes Juli Franz MD - 09/17/2017 0945 EST [facility] FOLLOWUP NOTE DOS 09/17/2017 Last seen: 03/12/2017 SUBJECTIVE: Guanakito presents for reevaluation of his HIV disease and his chronic hepatitis B and C. Cut down on smoking - now 1 pk per week No acute illness since last seen Not having his BP checked out on the skidoo but not skiing No acute complaints today Appetite good Energy good Allergies reviewed and updated in [facility] MEDICATIONS: reviewed and updated in [facility] Denies missing doses Isentress 400 mg twice daily. 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 Cleared virus SOCIAL HISTORY: Smoking 1 pack per week ETOH - none + MJ daily Lives with his assisted partner who is also HIV + They do not practice safer sex, but they are very infrequently sexually active They have 37 chickens and 2 roosters, cockatiel, 7 ducks, 1 cat and 2 dogs at home. The one legged chicken (Denise) also lives in the house FAMILY HISTORY: Father was on HD before he . ? Reason for his ESRD. He was known to have HTN Mother alive REVIEW OF SYSTEMS: A 10-point review of systems was performed and was negative except for the findings mentioned above and for the following: No VICK No change in vision Sees the dentist regularly - had an appt this am No dysphagia or odynopahgia Denies increased shortness of breath, chronic cough Denies any episodes of chest pain No dizziness or lightheadedness No GI or complaints No rash No fever, chills or NS OBJECTIVE: BP 110/78 Pulse (!) 48 Temp 36 ??C (96.8 ??F) Wt 81.3 kg (179 lb 3.7 oz) BMI 26.47 kg/m2 Alert and appropriate, NT, NAD, comfortable on RA. Anicteric sclerae, conjunctivae pink. Pupils equal. No oral lesions. fair dentition No cervical or supraclavicular lymphadenopathy. Lungs: rales at the right base that resolve with deep inspiration Cardiac exam reveals a regular rhythm, bradycardic. No murmur Abdomen: Bowel sounds are present, soft, nontender. No HSM or mass Extremities: He has no edema. He has chronic changes in his nails which are stable. No acute rash. DIAGNOSTIC DATA: Last labs:09/11/2017: Chemistries significant for: creatinine 1.03 Glucose 94 Electrolytes within normal limits AST/ALT 21/46 HIV PCR undetectable Urine for GC/chlamydia neg Lipid panel: TGs 88 HDL43 [id number] US of the renal arteries done 03/2017 was nl ASSESSMENT AND PLAN: 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 He has good adherence. He had had an increase in his Cr so we wanted to make a change to decrease risk for assisted nephrotoxicity. He has chronic HBV so wanted to continue TDF and 3TC. Use of the ATV and RTV with the TDF increases the TDF levels and increases risk for nephrotoxicity.Therefore we changed his HAART from ATV/RTV/RAL/TDF/3TC to 3TC/TDF/RAL and rilpivirine in place of the boosted ATV.He started the new regimen late November 2015. At the time of his visit in October 2016 we simplified the regimen to Odefsey (rilpivirine/TAF/FTC) once a day in combination with his raltegravir twice daily. He is tolerating his present medications well and has good adherence. Labs are stable. LDL is up slightly on his most recent blood work but that is not unexpected on TAF. Therefore we will plan to continue the Odefsey and raltegravir. I think that we can simplify the regimen further by changing to the once daily raltegravir HD. WIll transition over when he is due for his next prescritopn. He will then be on Odefsey (FTC/TAF/rilpivirine) and Isentress HD 1200 mg once daily. He will need to have repeat blood work and a follow-[facility] with [facility] in 4-6 months. 2. Tobacco use - He did not tolerate Chantix, but he has been successful in decreasing his tobacco use on his own. He is motivated to quit. Unfortunately it is not clear that his partner is ready to quit. Guanakito is still focused on the goal of quitting. 3. HTN - He has not been seen at the [facility] to have his blood pressure checked ?sincehe was last seen. At the time of his last visit we made the plan to rechallenge with lisinopril but the plan was to add it to the Cardura. He stopped the Cardura but is taking the lisinopril. His BP isin a good range today, so will plan to continue him on lisinopril alone for BP control. Renal arterystudy was nl. He is bradycardic on exam today but is asymptomatic with good BP so will follow for now. 4. Chronic hepatitis B and hepatitis C. Liver biopsy 05/2010 was consistent with treated hep B, and there really was no evidence of activity of his hepatitis C; in fact, we were not able to amplify HCVfor genotyping and he has never been treated for his hep C. Both HCV RNA and HBV DNA were undetectable with last labs. As he did not have cirrhosis unclear that he needs screening US. He has hemorroidsbut never had endoscopy to eval for varices, but unclear if this is indicated in absence of cirrhosis. Could consider fibroscan. No longer having any rectal bleeding. Needs repeat HAV vaccine. On TAF/FTC for HBV. Need to follow HBV DNA and HCV RNA. 5. Health maintenance. Had flu shot 02/2017. Lipid panel not ideal. Will need repeat syphilis serology . Hep A antibody neg so needs reimmunize with HAV vaccine. Tdap was given in 09/2011. Quantiferon neg. UTD on Prevnar. Needs repeat Pneumovax, but need to check on the date of his last Pneumovax. Had colo 09/2008. Urine for Chlamydia/GC neg. He has seen the dentist. He is scheduled for CT of the chest for lung cancer screening. 6 Lung nodule - he underwent biopsy of concerning lung nodule 05/2011 - path revealed AFB but culture was negative. He remains asymptomatic. Last CXR was stable. As above is scheduled for screening CT for lung cancer. 7. Depression -he has had issues with depression in the past. Seems to be doing well at present on no antidepressants. documented in this encounter Plan of Treatment Not on filedocumented as of this encounter Visit Diagnoses Diagnosis AIDS (acquired immune deficiency syndrom e) ([facility]) ([facility]) - Primary Human immunodeficiency virus [HIV] disea se Essential hypertension Unspecified essential hypertension Tobacco use Tobacco use disorder Chronic active hepatitis B without delta agent ([facility]) ([facility]) Encounter for long-term current use of h igh risk medication documented in this encounter Discontinued Medications Medication Sig Discontinue Reason Start Date End Date Raltegravir (ISENTRESS) Take 1 Tab by mouth 03/12/2017 09/17/2017 400 mg tabletIndications: 2 times daily. AIDS (acquired immune deficiency syndrome) ([facility]) ([facility]), AIDS (HCC-CMS) ([facility]) vefqzobpbc-chqyuerh-wvmke Take 1 Tab by mouth Reorder 03/12/20 17 09/17/2017 o ala 200-25-25 mg tablet daily. documented as of this encounter Historical Medications This list may reflect changes made after this encounter. Medication Sig Dispensed Refills Start Date End Date Cholecalciferol, Vitamin Take 400 Units by 0 D3, 400 unit tablet mouth daily. added in this encounter Care Teams Production Team Manager Relationship Specialty Start Date End Date Hanane Pollock NP PCP - General 01/30/09 02/23/19 [facility] [address] [place] [id number] documented as of this encounter
--- OUTSIDE RECORDS SUMMARY | 2022-05-02 11:04 | XMS_ITS | Encounter Summary ---
:1970 Author Organization [facility] Address [address] [place] [address] Care Team Providers Name Role Phone Unknown, Provider MD Primary Care Provider None, Provider Primary Care Provider Unavailable Sabrina Jerome NP Primary Care Provider Encounter Details Date Type Department Care Team Description 08/12/2019 Lab Requisition [facility] Unknown, Provider, Pathology & Laboratory [facility] [address] [place] [address] [place] [address] Social History Tobacco Use Types Packs/Day Years [...] Procedure Name Priority Date/Time Associated Comments Diagnosis QUANTIFERON TB GOLD Routine 08/11/2019 7:19 Resul ts for this PLUS EST procedure are i n the results section. documented in this encounter Results QUANTIFERON TB GOLD PLUS (08/11/2019 7:19 EST) Quantiferon Negative Negative [facility] Interpretation Comment: [facility] No interferon-gamma response to M. tuberculosis antigens was detected. ??Infection with M. tuberculosis is unlikely. A single negative result does not exclude infection with M. tuberculosis. ??In patien SERVICES ts at high risk for M. tuber culosis infection, a second test should be considered in accordance with the 2017 ATS/IDSA/CDC Clinical Practice Guidelines for Diagnosis of Tuberculosis in Adults and Childr en. [Gemma RAMIREZ et. al. Clin. Infect. Dis. 2017:64 ( 2) ??: 111-115]. Results were obtained with the [employer]agen QuantiFERON TB G old Plus JOSEFINA. TB1 Ag minus Nil 0.02 IU/ml [facility] TB2 Ag minus Nil 0.03 IU/mL [facility] Specimen Blood - Venous blood (substance) Narrative [facility] - 08/13/2019 13:52 EST Results were obtained with the [employer]agen Qu antiFERON-TB Gold Plus JOSEFINA. Performing Organization Address City/State/ZIP Code Phon e Number [facility] [address] [place] [address] SERVICES documented in this encounter Visit Diagnoses Not on filedocumented in this encounter Care Teams Founder And Chief Technical Officer Relationship Specialty Start Date End Date Unknown, Provider, PCP - General 02/24/19 03/01/20 None, Provider PCP - General 03/02/20 03/28/21 Sabrina Jerome, ASSEMBLER [employer]ILDING PCP - General 03/29/21 [address] [place] [id number] documented as of this encounter
--- OUTSIDE RECORDS SUMMARY | 2022-05-02 11:04 | XMS_ITS | Encounter Summary ---
:1970 Author Organization [facility] Address [address] [place] [address] Care Team Providers Name Role Phone Hanane Pollock NP Primary Care Provider Reason for Referral Radiology Services (Routine/Next Available) - Closed Specialty Diagnoses / Procedures Referred By Contact Refer red To Contact Diagnoses Essential hypertension Juli Franz MD Procedures RAD US RENAL ARTERY DOPPLER [address] [place] [address] Referral ID Status Reason Start Date Expiration Date Visits Requ ested Visits Authorized [id number] Closed 11/06/2016 1 1 Reason for Visit Reason Comments Follow-up Encounter Details Date Type Department Care Team Description 11/06/2016 Office Visit [facility] Juli Franz, AIDS ([facility]) (Primary Dx); Infectious Disease - MD Valarie mane hypertension; [facility] Hepatitis B infection withou t delta agent without hepatic coma, unspecified chronicity; [address] Chronic hepatitis C without hepatic coma (CMS-HCC); [place], [place] [address] Stress at home; [phone] Encounter for l rufus-term current use of high risk medication Social History Tobacco Use Types Packs/Day Years Used Date Current Every Day Smoker Cigarettes 1 Smokeless Tobacco: Never Used Tobacco Cessation: Ready to Quit: No; Co unseling Given: Yes Alcohol Use Standard Drinks/Week Comments Yes 2 [...] Sign Reading Time Taken Comments Blood Pressure 150/92 11/06/2016 1158 EDT Pulse - - Temperature - - Respiratory Rate - - Oxygen Saturation - - Inhaled Oxygen Concentration - - Weight 80 kg (176 lb 5.9 oz) 11/06/2016 1158 EDT Height - - Body Mass Index 26.05 07/20/2015 1513 EST documented in this encounter [...] Date doxazosin (CARDURA) 4 mg Take 1 Tab by mouth 30 Tab 1 01/06/2017 tablet daily. documented in this encounter Progress Notes Juli Franz MD - 11/06/2016 0900 EDT [facility] FOLLOWUP NOTE DOS 11/06/2016 Last seen: 02/21/2016 SUBJECTIVE: Guanakito presents for reevaluation of his HIV disease and his chronic hepatitis B and C. At the time of his last visit he was experiencing headaches and was found to have new hypertension He has been seen at the [facility] since that time and was started on antihypertensive therapy. He has not been back to have his blood pressure checked. The headaches he was experiencing at the time of his last visit have resolved. He reports experiencing occasional right sided temporal cramp - lasts couple minutes No acute illness since last seen More tired. Less endurance Is under stress as 1 of the dogs is ill - bleeding and thrombocytopenia He and Fernando are not getting along Has seen the dentist Appetite good no BRBPR Does admit to some chest pressure over the past couple days w/o associated sx. He denies any associated symptoms. I suggested that he may need to go to the hospital to have an EKG and further evaluation and he reported that the chest pressure resolves after belching No other acute complaints today Allergies reviewed and updated in [facility] MEDICATIONS: reviewed and updated in [facility] Denies missing doses Viread 300 mg once a day. Epivir 300 mg once a day. rilpivirine 25 mg once daily Isentress 400 mg twice daily. 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 Cleared virus SOCIAL HISTORY: 1 of the dogs is sick Smoking 1 pack every day ETOH - none + MJ daily Lives with his longterm partner who is also HIV + They do not practice safer sex, but they are very infrequently sexually active Family and not getting along They have chickens and roosters, cockatiel, 1 [...] negative except for the findings mentioned above He is wearing glasses and says with the glasses his vision in his right eye corrects No dental complaints he has partial upper and lower plates. He plans to go in for a cleaning in the near future He says he always has shortness of breath with exertion but he does not think it is worse Recent chest pressure as mentioned above which he feels is stress related and he has been under a lot of stress recently with the dog being ill No GI or complaints No rash No fever, chills or NS He also reports limitation of range of motion of the right shoulder. He has trouble rotating his armacross his anterior chest secondary to pain on the lateral aspect of the shoulder. No numbness or weakness in the right upper extremity OBJECTIVE: BP (!) 150/92 Wt 80 kg (176 lb 5.9 oz) BMI 26.05 kg/m2 Alert and appropriate, NT, NAD, comfortable on RA No scleral icterus, conjunctivae pink. Pupils equal. No oral lesions, mild pharyngeal erythema No cervical or supraclavicular lymphadenopathy. Lungs: Clear Cardiac exam reveals a regular rhythm. Abdomen: Bowel sounds are present, soft, nontender Extremities: He has no edema. He has chronic changes in his nails which are stable. No acute rash. Neuro - motor strength equal in his upper extremities bilaterally, sensation intact DIAGNOSTIC DATA: Last labs: 10/28/2016: WBC 8.15 HCT 40.7 PLT 286k HIV PCR undetectable HBV DNA detected at <20 international units per mL CD4 820 (30%) Chemistries significant for: creatinine 1. 09 phosphorus 2.8 AST/ALT 20/50 Lipid panel: TGs 56 HDL 40 LDL 97 Lytes wnl ASSESSMENT AND PLAN: 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 He has good adherence. He had recent increase in his Cr so we wanted to make a change to decrease risk for terminal carman nephrotoxicity. He has chronic HBV so want to continue TDF and 3TC. Use of the ATVand RTV with the TDF increases the TDF levels and increases risk for nephrotoxicity.Therefore we changed his heart from ATV/RTV/RAL/TDF/3TC to 3TC/TDF/RAL and rilpivirine in place of the boosted ATV. He started the new regimen late November. When he was last seen in February he seemed to be tolerating the medications well and his labs demonstrated improved creatinine with continued viral suppression. He is c ontinued on the same regimen. His ALT may be up slightly but his viral load remains undetectable andhis creatinine is stable. He seems to be tolerating medications well. He just refilled his meds so we do not want to making changes right now. We did discuss the possibility of changing the TDF to TAF.I think we could change his TDF/3TC to TAF/FTC. We discussed the fact that TAF may cause an increasein his LDL and will have to follow his lipid panel. As he is on rilpivirine we could simplify his regimen by giving him Odefsey (rilpivirine/TAF/FTC) once a day and raltegravir twice daily. We can planto make that change when he is due for his next refill in a month. Then we will plan for him to haverepeat blood work and a follow-up with me after he has been on the new regimen for about 3 months. Would check creatinine, liver enzymes, PO4 and HIV PCR at that time. I do not think he is a candidate for dolutegravir because of the potential for increase in his liver enzymes with his underlying hepatitis B and C, but also there can be associated headache and is he has been struggling with headaches recently would not want to start med that would have this potential adverse effect. 2. Tobacco use - He tried the [...] that he could do for his heart. 3. VICK - the headaches that he had at the time of his prior visit seems to have resolved completely. His blood pressure is not under ideal control. His headaches have improved. He feels that the occasional right sided headache that he has is related to eye strain. 4. HTN - as above. He was seen at [facility] was started on lisinopril but he developed palpitations he is now on Cardura. His blood pressure is not adequately controlled so we elected to increase his Cardura to 4 mg a day. I placed new prescription for the 4 mg tablet as he will run out of his 2 mg tablets sooner. Encouraged him to follow up at [facility] to have his blood pressure checks sowe can continue to titrate his meds. Not using ETOH. Still smoking but no excessive caffeine intake.Not using NSAIDS. He has a FH of HTN. In view of the rapid onset of his hypertension I do think it is reasonable to obtain an ultrasound to R/O renal artery stenosis. 5. Chronic [...] fibrosis based on that biopsy. HBV DNA <20 copies on his most recent blood work. HCV RNA undetectable 02/2016. His ALT is up slightly at 50 on his most recent blood work. May need to repeat his HCV RNA with future labs He rarely uses ETOH. He is on [...] fibroscan. No longer having any rectal bleeding. 4. Health maintenance. Lipid panel with most recent blood work is acceptable , although his HDL is low. He was supposed to have repeat syphilis serology but I do not see that this was done.. Hep A antibody neg so needs reimmunize with HAV vaccine. Tdap was given in 09/2011. Quantiferon neg. UTD on Prevnar. Needs repeat Pneumovax. Had colo 09/2008. Urine for Chlamydia/GC 11/2015 neg. Has seen the dentist. 5 Lung nodule - he underwent biopsy of concerning lung nodule 05/2011 - path revealed AFB but culture was negative. He remains asymptomatic. Last CXR was stable. He continues to smoke so may be a candidate for screening CT for lung cancer. 6. Increased Cr - creatinine improved after the switch off of the boosted PI. UA demonstrated hematuria. Prior renal ultrasound was unremarkable. 7. Depression - he has had depression in the past and was on medications. He has done well off antidepressants for prolonged period of time. He has long-term sleep disturbance which is not significantly different. He complains of having difficulty getting motivated to do things. He clearly is under stress secondary to conflict in his long-term relationship. I do think he would benefit from seeing a counselor. We discussed the possibility of a marriage counselor but he does not think that his partnerwill be an honest participant in those sessions. Hanane recommended that he see Juan who is a counselor that works out of [facility] and she will arrange this connection. I also think that he may benefit from a connection with [facility], and that referral can be made through the [facility] 8. Chest pressure - he was having trouble describing what he is feeling. It sounds like the symptomsbeing continuous and are not effort related. He is having no associated symptoms. While in the office he said the chest pressure was relieved after he belched. He has been a heavy smoker but has no other risk factors for heart disease. Low threshold to send him for EKG, chest x-ray and possible exercise stress test if he has recurrent symptoms. documented in this encounter Plan of Treatment Scheduled Orders Name Type Priority Associated Diagnoses Order S chedule RAD US RENAL ARTERY Imaging Routine Essential hypertensio n Ordered: 11/06/2016 DOPPLER documented as of this encounter Visit Diagnoses Diagnosis AIDS (HCC-CMS) (HCC) - Primary Human immunodeficiency virus [HIV] disea se Essential hypertension Unspecified essential hypertension Hepatitis B infection without delta agen t without hepatic coma, unspecified chronicity Chronic hepatitis C without hepatic coma (HCC-CMS) (HCC) Chronic hepatitis C without mention of h epatic coma Stress at home Unspecified family circumstance Encounter for long-term current use of h igh risk medication documented in this encounter Discontinued Medications Medication Sig Discontinue Reason Start Date End Date doxazosin (CARDURA) 2 mg Take 2 mg by mouth 11/06/2016 tablet daily. documented as of this encounter Historical Medications This list may reflect changes made after this encounter. Medication Sig Dispensed Refills Start Date End Date doxazosin (CARDURA) 2 mg Take 2 mg by mouth 0 11/06/2016 tablet daily. added in this encounter Care Teams Machine Milker Relationship Specialty Start Date End Date Hanane Pollock NP PCP - General 01/30/09 02/23/19 [facility] [address] [place] [address] documented as of this encounter
--- OUTSIDE RECORDS SUMMARY | 2022-05-02 11:04 | XMS_ITS | Encounter Summary ---
:1970 Author Organization [facility] Address [address] [place] [address] Care Team Providers Name Role Phone Hanane Pollock NP Primary Care Provider Encounter Details Date Type Department Care Team Description 04/20/2016 Orders Only [facility] Infectious Chelle Franz MD Disease - Main [place] [address] [place] [address] Social History Tobacco Use Types [...] on filedocumented in this encounter Care Teams Dispatcher Tugboat Relationship Specialty Start Date End Date Hanane Pollock NP PCP - General 01/30/09 02/23/19 [facility] [address] [place] [address] documented as of this encounter
--- OUTSIDE RECORDS SUMMARY | 2022-05-02 11:04 | XMS_ITS | Encounter Summary ---
:1970 Author Organization [facility] Address [address] [place] [address] Care Team Providers Name Role Phone Hanane Pollock NP Primary Care Provider Encounter Details Date Type Department Care Team Description 04/18/2016 Orders Only [facility] Infectious Chelle Franz MD Disease - [place] [address] [place] [address] Social History Tobacco Use Types [...] Associated Comments Diagnosis HIV 1 RNA Routine 04/04/2016 15:12 Results for this QUANTITATION EDT procedure are i n the results section. documented in this encounter Results (ABNORMAL) HIV 1 RNA QUANTITATION (04/04/2016 15:12 EDT) HIV1 RNA, DetectedComment: Undected [facility] External Please see the copies/mL [facility] report in [facility] for further interpretation. Test performed by the [facility]. Specimen Blood specimen (specimen) Performing Organization Address City/State/ZIP Code Phon e Number [facility] documented in this encounter Visit Diagnoses Not on filedocumented in this encounter Care Teams Firer Helper Relationship Specialty Start Date End Date Hanane Pollock NP PCP - General 01/30/09 02/23/19 [facility] [address] [place] [address] documented as of this encounter
--- OUTSIDE RECORDS SUMMARY | 2022-05-02 11:04 | XMS_ITS | Encounter Summary ---
:1970 Author Organization [facility] Address [address] [place] [address] Care Team Providers Name Role Phone Hanane Pollock NP Primary Care Provider Reason for Visit Reason Onset Date Comments Other 04/29/2018 Encounter Details Date Type Department Care Team Description 04/29/2018 Telephone [facility] Bharat Murphy MD Other Surgery - [facility] [address] [address] [address], [place], [place] [address] (Wo rk) Social History [...] Telephone Encounter - Terri Coelho - 04/29/2018 1634 EDT I called Fernando back to confirm that Dr. Sarkis Dean performed Guanakito's colonoscopy on September 12, 2008 at [facility]. It was normal with a hyperplastic polyp. He is due anytime after 09/12/18. Fernando will call me back in to schedule this. documented in this encounter Plan of Treatment Not on filedocumented as of this encounter Visit Diagnoses Not on filedocumented in this encounter Care Teams Logistics Team Lead Relationship Specialty Start Date End Date Hanane Pollock NP PCP - General 01/30/09 02/23/19 [facility] [address] [place] [address] documented as of this encounter
--- OUTSIDE RECORDS SUMMARY | 2022-05-02 11:04 | XMS_ITS | Encounter Summary ---
:1970 Author Organization Address [address] [place] [address] Care Team Providers Name Role Phone None, Provider Primary Care Provider Unavailable Reason for Visit Reason Onset Date Comments Follow-up 08/21/2020 Encounter Details Date Type Department Care Team Description 08/21/2020 Telephone [facility] Ramin Pina DO Follow-up Infectious Disease - [address] [place], [place] [id number] [place] [id number] [phone] (Wo rk) Social History Tobacco Use Types [...] this encounter Miscellaneous Notes Telephone Encounter - Lit Pina DO - 08/21/2020 2708 EST Patient's Fernando called stating that patient was significantly struggling with insomnia. Patient is on Odefsey and raltegravir. Neither of these medications are new. I told the patient that we would try to connect with Sabrina Jerome, his primary care provider and see if she had some ideas or could evaluate the patient. I would be happy to run drug drug interaction checks for any antiinsomnia medication she had against his HIV medications. Fernando very comfortable with plan. documented in this encounter Plan of Treatment Not on filedocumented as of this encounter Visit Diagnoses Not on filedocumented in this encounter Care Teams Retail Zone Specialist Relationship Specialty Start Date End Date None, Provider PCP - General 03/02/20 03/28/21 documented as of this encounter
--- OUTSIDE RECORDS SUMMARY | 2022-05-02 11:04 | XMS_ITS | Clinical Summary ---
:1970 Author Organization [facility] [place] [address] Care Team Providers Name Role Phone Kamronmariola Sabrina Mariola MALDONADO Primary Care Provider Allergies Active Allergy Reactions Severity Noted Date Comments Penicillins 05/11/2018 Sulfa (Sulfonamide Antibiotics) 8 Medications Medication Sig Dispensed Refills Start Date End Date Status raltegravir (ISENTRESS) Take 400 mg by 0 Active 400 mg Tablet mouth 2 times daily. emtricitab/rilpiviri/te Take by mouth. 0 Active nof ala (ODEFSEY ORAL) lisinopril Take 10 mg by 0 Activ e (PRINIVIL;ZESTRIL) 10 mouth daily. mg Tablet Active Problems No known active problems Social History Tobacco Use Types Packs/Day Years Used Date Current Every Day Smoker Cigarettes 0.5 15 Smokeless Tobacco: Never Used Sex Assigned at Date Recorded Not on file Plan of Treatment Upcoming Encounters Date Type Specialty Care Team Description 05/10/2022 Office Visit Dermatology Health Maintenance Due Date Last Done Comments Covid-19 Vaccine (#1) 1970 Pneumococcal Vaccine: At-Risk 5-64yrs (1 - PCV) 01/18/1974 HIV screen 01/18/1986 Hepatitis C Screening 01/18/1986 Lipid Screening 01/18/1986 Tdap adult 01/18/1987 Tetanus vaccine 01/18/1987 Colonoscopy 01/18/2013 Zoster vaccine (1 of 2) 01/18/2018 Influenza (Flu) vaccine (1 of 1 - Influenza standard 03/14/2022 series) Insurance Payer Benefit Plan / Subscriber ID Effective Dates Phone Addre ss Type Group MEDICARE MEDICARE PART [id number] 2003-Presen [phone] [place] [address] [place]ICA[place] [id number] 2019-Car [phone] [address] [place] [address] Care Teams Beamer Helper Relationship Specialty Start Date End Date Sabrina Jerome, SECOND VP HR ASSESSMENT PCP - General Family Medicine 01/02/22 [address] [place], [place] [id number]
--- OUTSIDE RECORDS SUMMARY | 2022-05-02 11:04 | XMS_ITS | Encounter Summary ---
:1970 Author Organization [facility] Address [address] [place] [address] Care Team Providers Name Role Phone Unknown, Provider MD Primary Care Provider None, Provider Primary Care Provider Unavailable Sabrina Jerome WOOL CLEANER Primary Care Provider Encounter Details Date Type Department Care Team Description 06/14/2019 Lab Requisition [facility] Ca Leal for other Pathology & Santino Zuniga DO general examination Laboratory Medicine [address] [place] [id number] [address] Social History Tobacco Use Types Packs/Day Years [...] Date/Time Associated Diagnosis Comme nts SURGICAL PATHOLOGY Today 06/14/2019 10:55 Encounter for othe r Results for this EST general examination procedur e are in the results section. documented in this encounter Results SURGICAL PATHOLOGY (06/14/2019 10:55 EST) Final Diagnosis A. SOFT PALATE, LEFT, BIOPSY: [facility] [place] Electronically - Squamous mucosa with mild chronic inflammation, mild parakeratosis, and focal subepithelial fibrosis. See comment. CENTER sig roc by Jared, - No dysplasia identified. LABORATORY Efrain mejia MD on SERVICES 06/18/2019 at 15 45 Diagnosis Comment Deeper sections have [facility] been examined. [place] [facility] Clinical History History of HIV infection K13.70. [facility] Left soft palate lesion [facility] LABORATORY SERVICES Attestation There was significant [facility] Electr onically resident/fellow CENTER signed by Jose blanca, involvement in the LABORATORY MD Coty on diagnostic evaluation SERVICES 019 at 1545 of this case. By the signature below, the attending physician certifies that they have personally conducted a gross and/or microscopic examination of the described specimens and rendered or confirmed the above diagnosis. Gross Description A. Received in formalin labe lled with proper patient identification (initials S, J) and L soft palate is a single lazcano-white tissue fragment (0.4 x 0.2 x 0.1 cm). Submitted intact in A1. [facility] MIHRAB ALI 06/15/2019 07:58 LABORATORY SERVICES Resident/Fellow: Joycelyn Cardenas [facility] MD [place] [facility] SERVICES Scanned Images [facility] Specimen Tissue - Entire oral mucous membrane (rober dy structure) Performing Organization Address City/State/ZIP Code Phon e Number [facility] [address] [place] [address] SERVICES documented in this encounter Visit Diagnoses Diagnosis Encounter for other general examination documented in this encounter Care Teams Hydraulic Plumber Helper Relationship Specialty Start Date End Date Unknown, Provider, PCP - General 02/24/19 03/01/20 None, Provider PCP - General 03/02/20 03/28/21 Sabrina Jerome NP PCP - General 03/29/21 [address] [place] [id number] documented as of this encounter
--- OUTSIDE RECORDS SUMMARY | 2022-05-02 11:04 | XMS_ITS | Encounter Summary ---
:1970 Author Organization [facility] Address [address] [place] [address] Care Team Providers Name Role Phone Hanane Pollock NP Primary Care Provider Encounter Details Date Type Department Care Team Description 05/22/2017 Hospital Encounter [facility]- Charlene Unknown, Provider, [facility] [address] [facility] [phone] [place] [address] (Work) [phone] Social History Tobacco Use Types Packs/Day Years [...] making decisions? documented as of this encounter Medications at Time of Discharge Medication Sig Dispensed Refills Start Date End Date acetaminophen (TYLENOL Take 1,000 mg by 0 EXTRA STRENGTH) 500 mg mouth every 12 tablet hours as needed for Pain. doxazosin (CARDURA) 4 mg Take 1 tablet by 30 Tab 1 02/14 tablet mouth every day lisinopril (PRINIVIL, Take 1 Tab by mouth 7 Tab 0 03/12 ZESTRIL) 10 mg tablet daily. fwniteaazz-drhxgkvp-mqptox Take 1 Tab by mouth 30 Tab 6 03/12/2017 09/17/2017 ala 200-25-25 mg tablet daily. Raltegravir (ISENTRESS) Take 1 Tab by mouth 60 Tab 6 09/17/2017 400 mg tabletIndications: 2 times daily. AIDS (acquired immune deficiency syndrome) (HCC-CMS) (HCC), AIDS (HCC-CMS) (HCC) documented as of this encounter Discharge Disposition Disposition Code Departure Means Destination Home or Self Retirement documented in this encounter Plan of Treatment Not on filedocumented as of this encounter Visit Diagnoses Not on filedocumented in this encounter Care Teams Distribution Specialist Relationship Specialty Start Date End Date Hanane Pollock NP PCP - General 01/30/09 02/23/19 [facility] [address] [place] [address] documented as of this encounter
--- OUTSIDE RECORDS SUMMARY | 2022-05-02 11:05 | XMS_ITS | Encounter Summary ---
:1970 Author Organization [facility] Address [address] [place] [address] Care Team Providers Name Role Phone Hanane Pollock NP Primary Care Provider Reason for Visit Reason Comments Follow-up Encounter Details Date Type Department Care Team Description 06/03/2012 Office Visit [facility] SalvadorarsenJuli Human im munodeficiency virus (HIV) disease; Infectious Disease - BMD Chronic active type B viral hepatitis (CMS-HCC); [facility] Headache [address] [place] [address] [id number] Social History Tobacco Use Types Packs/Day Years Used Date Current Every Day Smoker 1 Alcohol Use Standard Drinks/Week Comments Yes 0 (1 standard drink = 0.6 oz pure [...] Sign Reading Time Taken Comments Blood Pressure 128/70 06/03/2012 0940 EST Pulse 88 06/03/2012 0940 EST Temperature 36.8 ??C (98.2 ??F) 06/03/2012 0940 EST Respiratory Rate - - Oxygen Saturation - - Inhaled Oxygen Concentration - - Weight 80.2 kg (176 lb 12.9 oz) 06/03/2012 0940 EST Height - - Body Mass Index 26.11 05/23/2011 0832 EST documented in this encounter Progress Notes Lavonne Ng - 06/05/2012 0838 EST Faxed lab orders to [facility]. Mailed copy of office note to [facility]. Juli Richards MD - 06/03/2012 0944 EST [facility] FOLLOWUP NOTE DOS 06/03/2012 Last seen: 01/29/2012 SUBJECTIVE: Guanakito presents for reevaluation of his HIV disease and his chronic hepatitis. Since he was last seen he has not had any acute illness. Energy level is down. He has been under stress about upcoming court date. Having VICK daily since summer. Pain located at top of head. No neck pain. Some neck stiffness. + nausea, no vomiting. No fever or chills. ? Night sweats. Saw ophtho 02/16 - Guanakito said that he was told that he had early glaucoma, and upgraded his Rx. He got new glasses. Having dry eye on right. VICK has not changed with glasses. No numbness or weakness. Appetite good. No other acute complaints today. Allergies reviewed and updated in [facility] MEDICATIONS: reviewed and updated in[facility] Viread 300 mg once a day. Ritonavir 100 mg once a day. Epivir 300 mg once a day. Atazanavir 300 mg once a day. Isentress 400 mg twice daily. PAST MEDICAL HISTORY: Nothing to add. SOCIAL HISTORY: Smoking 1 pack every day ETOH occasionally Lives with his partner They have chickens, 1 cat and 2 dogs at home. 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 REVIEW OF SYSTEMS: A 10-point review of systems really only significant for the findings mentioned above and: Dropped a frozen turkey on left foot No GI or sx No dysphagia or odynophagia No CP, SOB No abd pain Feels that alopecia is improving OBJECTIVE: BP 128/70 Pulse 88 Wt 80.2 kg (176 lb 12.9 oz) No scleral icterus, conjunctivae pink. Pupils equal. EOM intact He has no oral lesions. Right side of tongue sits higher than left side but tongue midline and ROM intact. No facial asymmetry. Fair dentition. No cervical or supraclavicular lymphadenopathy. On left anterior scalp has a soft nodule that is ~ 1 inch in diameter. - no hair on lesion. Lungs: clear. Cardiac exam reveals a regular rhythm. Abdomen: Bowel sounds are present, soft, nontender, no hepatosplenomegaly or masses appreciated. Extremities: He has no edema. He has chronic changes in his nails which are stable. His digits appear larger more distally. + ecchymosis of left 3rd toe No acute rash DIAGNOSTIC DATA: WBC 11.35, hemoglobin 16.9 platelet count 195,000. Differential really unremarkable. Chemistries: His creatinine was 1.2. PO4 3.5 Alk phos wnl. His ALT was 45 with an AST of 22 CK 117. CD4 count was 840 and 29% HIV PCR was detectable 25 copies. CK 118 ASSESSMENT AND PLAN: 1. HIV positive. Guanakito has AIDS by definition. He has had cryptococcal meningitis. He has done well on his present antiretroviral therapy. I think he has good adherence. He has tolerated the meds well.I was concerned that his Cr was up a bit on last labs but it has not continued to increase. I think that we need to watch that closely. CK was elevated on prior labs but CK done in preparation for thisvisit was wnl. His viral load is just detectable. His CD4 count is stable. Would continue his present regimen and would have him have repeat blood work and a followup with myself in the comprehensive care clinic in about 4 months. 2. Tobacco use - smoking but less. He is not ready to quit but encouraged him to set a quit date. 3. Depression. He had stopped his Wellbutrin before our last visit and he remains off the Wellbutrin. He does not feel that he is depressed off the meds. Follw off Wellbutrin for now. 4. Chronic hepatitis B and hepatitis C. At the time of his last liver biopsy it was consistent with treated hep B, and there really was no evidence of activity of his hepatitis C; in fact, we were not able to amplify HCV for genotyping and he has never been treated for his hep C. He is on ongoing therapy for his hep B, and we did not see any evidence of progression of his fibrosis on therapy based onhis most recent biopsy. Last HBV DNA remained low/ Plan to repeat HBV DNA with next labs. Last abd US failed to reveal any liver abnormality. 5. Health maintenance. Lipid panel in 10/2011 was acceptable. Hep A antibody neg so would reimmunize with HAV vaccine. He had his flu shot already. Tdap was given in 09/2011 6. 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 Will repeat his CXR to eval for progression of lung nodules. If any change may needrepeat CT of the chest. 7. VICK - this is a new problem . The timing of onset corresponds to the law suit. He feels that he isreally stressed. Neuro exam is normal. He goes to court next week. Once he gets through all of the stress if the VICK persists he will need further eval. He has had cryptococcal meningitis in the past but his CD4 count remains high so doubt OI as cause of VICK. documented in this encounter Plan of Treatment Not on filedocumented as of this encounter Visit Diagnoses Diagnosis Human immunodeficiency virus (HIV) disea se ([facility]) (HCC) Human immunodeficiency virus [HIV] disea se Chronic active type B viral hepatitis (H CC) Viral hepatitis B without mention of hep atic coma, chronic, without mention of hepatitis delta Headache(784.0) Headache documented in this encounter Discontinued Medications Medication Sig Discontinue Reason Start Date End Date buPROPion (WELLBUTRIN Take 1 Tab by Patient Stopped Taking 06/14/20 11 06/03/2012 SR) 100 mg SR tablet mouth daily. documented as of this encounter Historical Medications This list may reflect changes made after this encounter. Medication Sig Dispensed Refills Start Date End Date Calcium-Cholecalciferol, Take 1 Tab by mouth 0 07/20/2015 D3, (CALCARB) 600 daily. mg(1,500mg) -200 unit Tab added in this encounter Care Teams Clinical Nutritionist Relationship Specialty Start Date End Date Hanane Pollock NP PCP - General 01/30/09 02/23/19 [facility] [address] [place] [address] documented as of this encounter
--- OUTSIDE RECORDS SUMMARY | 2022-05-02 11:05 | XMS_ITS | Encounter Summary ---
:1970 Author Organization [facility] Address [address] [place] [address] Care Team Providers Name Role Phone Hanane Pollock NP Primary Care Provider Encounter Details Date Type Department Care Team Description 04/08/2013 Orders Only [facility] Infectious Chelle Franz MD Disease - [address] [facility] [address] [place] [address] Social History Tobacco Use Types [...] Procedure Name Priority Date/Time Associated Comments Diagnosis COMPREHENSIVE Routine 02/26/2013 12:45 Results fo r this METABOLIC PANEL (CMP) EDT proced ure are in the results section. COMPLETE BLOOD COUNT Routine 02/26/2013 12:43 Res ults for this AND DIFFERENTIAL EDT procedure a re in the results section. PHOSPHORUS Routine 02/26/2013 12:43 Results for this EDT procedure are i n the results section. CK Routine 02/26/2013 12:43 Results for this EDT procedure are i n the results section. LIPID PROFILE Routine 02/26/2013 12:43 Results fo r this (INCLUDES CHOLESTEROL, EDT proce dure are in TRIGLYCERIDES, HDL, the resu lts LDL) section. documented in this encounter Results (ABNORMAL) COMPREHENSIVE METABOLIC PANEL (CMP) (02/26/2013 12:45 EDT) GFR, Calculated, >=60.00 >=60.00 [facility] External mL/min/1.73m [address] [facility] Glucose, Serum, 74 70 - 100 [facility] External mg/dL [facility] Albumin, External 4.7 3.4 - 5.0 [facility] g/dL [facility] Total Alkaline 103 38 - 126 U/L [facility] Phosphatase, [facility] ALT, External 59 12 - 78 U/L [facility] AST, External 26 15 - 37 U/L [facility] BUN, External 18 7 - 18 mg/dL [facility] Calculated Not given [facility] Calcium, External [facility] Calcium, External 9.1 8.5 - 10.1 [facility] mg/dL [facility] Chloride, 104 98 - 107 [facility] External mmol/L [facility] CO2, External 27.8 21.0 - 32.0 [facility] mmol/L [facility] Creatinine, 1.2 0.8 - 1.3 [facility] mg/dL [facility] Fasting?, Unknown [facility] External [facility] Potassium, 4.2 3.5 - 5.1 [facility] mmol/L [facility] Sodium, External 139 136 - 145 [facility] mmol/L [facility] Total Protein, 7.5 6.4 - 8.2 [facility] External g/dL [facility] Bilirubin, Total, 2.63 (A)Comment: 0.2 - 1.0 [facility] External Please see scanned mg/dL [facility] report in [facility] for HOSPITAL LAB further interpretation Specimen Blood specimen (specimen) Performing Organization Address City/State/ZIP Code Phon e Number [facility] CK (02/26/2013 12:43 EDT) Pathologist Sig nature CK, External 172 39 - 308 U/L [facility] Specimen Blood specimen (specimen) Performing Organization Address City/State/ZIP Code Phon e Number [facility] (ABNORMAL) HEMAGRAM AND DIFFERENTIAL (02/26/2013 12:43 EDT) WBC, External 8.73 4.4 - 10.8 [facility] RBC, External 4.81 4.50 - 6.00 [facility] Hemoglobin, 16.5 13.5 - 17.5 [facility] External g/dL [facility] HCT, External 47.3 40.0 - 50.0 [facility] % [facility] MCV, External 98.3 (A) 80 - 95 fL [facility] MCH, External 34.3 (A) 27.0 - 33.0 [facility] pg [facility] MCHC, External 34.9 32.0 - 36.0 [facility] % [facility] PLT, External 204 130 - 400 [facility] x1000/uL [facility] RDW-CV, External 13.5 11.8 - 14.1 [facility] Neutrophils, 51.1 40 - 74 % [facility] Lymphocytes, 36.1 19 - 44 % [facility] Monocytes, 8.5 3.0 - 10.0 % [facility] Eosinophils, 3.6 1 - 7.0 % [facility] Basophils, 0.6 0.0 - 2.0 % [facility] ABS Neutrophils, 4.47 1.2 - 6.7 [facility] ABS Lymphs, 3.15 1.2 - 3.4 [facility] ABS Monocytes, 0.74 (A) 0.11 - 0.7 [facility] ABS Eosinophils, 0.31 0 - 0.7 [facility] ABS Basophils, 0.05Comment: Please 0.0 - 0.2 [facility] External see scanned report in [facility] for further HOSPITAL LAB interpretation Specimen Blood specimen (specimen) Performing Organization Address City/State/ZIP Code Phon e Number [facility] (ABNORMAL) LIPID PROFILE (INCLUDES CHOLESTEROL, TRIGLYCERIDES, HDL, LDL) (02/26/2013 12:43 EDT) Cholesterol, 154 50 - 200 [facility] External mg/dL [facility] Triglycerides, 185 (A) 15 - 150 [facility] External mg/dL [facility] HDL, External 29 (A) 40 - 60 [facility] mg/dL [facility] LDL, External 94 mg/dL [facility] Chol/HDL Ratio, Not given [facility] External [facility] Fasting?, UnknownComment: [facility] External Please see scanned [facility] report in [facility] for HOSPITAL [facility] further interpretation Specimen Blood specimen (specimen) Performing Organization Address City/State/ZIP Code Phon e Number [facility] PHOSPHORUS (02/26/2013 12:43 EDT) Pathologist Sig nature Phosphorus, External 3.6 2.5 - 4.9 mg/dL [facility] Specimen Blood specimen (specimen) Performing Organization Address City/[facility]/ZIP Code Phon e Number [facility] documented in this encounter Visit Diagnoses Not on filedocumented in this encounter Care Teams Biomass Power Plant Manager Relationship Specialty Start Date End Date Hanane Pollock NP PCP - General 01/30/09 02/23/19 [facility] [address] [place] [address] documented as of this encounter
--- OUTSIDE RECORDS SUMMARY | 2022-05-02 11:05 | XMS_ITS | Encounter Summary ---
:1970 Author Organization [facility] Address [address] [place] [address] Care Team Providers Name Role Phone Hanane Pollock NP Primary Care Provider Reason for Visit Reason Onset Date Comments Medications Refill 11/20/2010 Encounter Details Date Type Department Care Team Description 11/20/2010 Telephone [facility] Juli Franz MD Dc dications Refill Infectious Disease - [facility] [address], [place] [id number] Social History Tobacco Use Types Packs/Day Years Used Date Never Assessed Sex Assigned at Date Recorded Not on file documented as of this encounter Miscellaneous Notes Telephone Encounter - Ceci Fletcher RN - 11/21/2010 0931 EDT Guanakito fell on down some stairs 11/14/10. He landed on his back(tailbone) and hit hard just below his shoulder blades. After laying there a while he went to get up and felt significant pain in right rib cage making it hard to take deep breath. He went to the ED and had many x-ray films done to r/o Fx. Dx = contusions. He was given 6 tabs of Hydrocodone with Tylenol which he has finished. Suggested OTC 400-600 mg of Ibuprofen every 6 hrs. for Pain control. He will try this but would like to have morePercocet. Guanakito can be reached at home [phone]. Will consult Dr. Braggo elephone Encounter - Lavonne Ng - 11/20/2010 3058 EDT Kory(Fernando), partner, stated Guanakito sees Dr Franz in [facility]. Stated Hanane Pollock is out today. Stated pt fell on stairs last week and went to ER. Was given about 6 pain pills and would like a refill. Believes he was given Hydrocodone. Guanakito can be reached at [phone]. documented in this encounter Plan of Treatment Not on filedocumented as of this encounter Visit Diagnoses Not on filedocumented in this encounter Care Teams Pilot Plant Supervisor Relationship Specialty Start Date End Date Hanane Pollock NP PCP - General 01/30/09 02/23/19 [facility] [address] [place] [address] documented as of this encounter
--- OUTSIDE RECORDS SUMMARY | 2022-05-02 11:05 | XMS_ITS | Encounter Summary ---
:1970 Author Organization [facility] Address [address] [place] [address] Care Team Providers Name Role Phone Hanane Pollock NP Primary Care Provider Reason for Visit Reason Onset Date Comments Results 08/05/2011 Encounter Details Date Type Department Care Team Description 08/05/2011 Telephone [facility] Infectious Chelle Franz MD Results Disease - [address], [place] [id number] Social History Tobacco Use Types Packs/Day Years [...] Telephone Encounter - Ceci Fletcher RN - 08/05/2011 1538 EST To clarify, neither Guanakito nor Fernando (significant other) have heard results from lung biopsy. Biopsy done nearly 2 months ago in [facility]. Reassured Fernando that the message will be passed on. elephone Encounter - Lavonne Ng - 08/05/2011 1528 EST Fernando, partner, stated Guan[place]ito [place] Dr [place] [facility] He does not want to call [facility] as he wants to speak with Dr Franz regarding results of lung biopsy. He can be reached at [phone] documented in this encounter Plan of Treatment Not on filedocumented as of this encounter Visit Diagnoses Not on filedocumented in this encounter Care Teams Derrick Operator Relationship Specialty Start Date End Date Hanane Pollock, PHARMACIST MANAGER PCP - General 01/30/09 02/23/19 [facility] [address] [place] [address] documented as of this encounter
--- OUTSIDE RECORDS SUMMARY | 2022-05-02 11:05 | XMS_ITS | Encounter Summary ---
:1970 Author Organization [facility] Address [address] [place] [address] Care Team Providers Name Role Phone Hanane Pollock NP Primary Care Provider Encounter Details Date Type Department Care Team Description 05/23/2011 Hospital Encounter [facility], Cardiovascular Unit MD [address] [place] [address] Social History Tobacco Use Types Packs/Day Years [...] Sign Reading Time Taken Comments Blood Pressure 174/90 05/23/2011 1619 EST ghislaine pressley rn notified of high blood pressure Pulse 60 05/23/2011 1619 EST Temperature 36.1 ??C (97 ??F) 05/23/2011 1151 EST Respiratory Rate 16 05/23/2011 1619 EST Oxygen Saturation 100% 05/23/2011 1619 EST Inhaled Oxygen - - Concentration Weight 78.5 kg (173 lb) 05/23/2011 0832 EST Height 175.3 cm (5' 9) 05/23/2011 0832 EST Body Mass Index 25.55 05/23/2011 0832 EST documented in this encounter Discharge Instructions Jemma Pinon RN - 05/23/2011 RADIOLOGY PATIENT EDUCATION INSTRUCTIONS FOLLOWING A Lung Biopsy Procedure Site - Right Back Physician Performing Procedure - Michael Kirkpatrick and CHANTAL Moses ?? Return home and rest for the remainder of the day. You should have a responsible adult drive you home and arrange for someone to remain with you for the rest of the day. ?? DO NOT drive or make any legal decisions today as the medications that were administered during the procedure for sedation and pain control may have effects that last several hours. Limit physical exertion to performing normal activities; avoid heavy lifting and strenuous exercise. You may resume normal activities tomorrow. ?? You may resume your normal diet after the procedure, unless instructed otherwise by the physician. Avoid alcoholic beverages, depressant drugs, and smoking for 24 hours. If you have questions regarding the safety of reinstituting medications, please contact your primary care physician. ?? DO NOT take aspirin-containing medications, ibuprofen, vitamin E, or blood thinning medication (i.e., coumadin) for 24 hours after the procedure. You may take Tylenol (acetaminophen) 1-2 tablets every 4-6 hours after the procedure for mild discomfort. Call your primary care physician or the radiology department for pain unrelieved by Tylenol. ?? Call your primary care physician or go to the nearest emergency room if you develop any of the following - ?? A rapid pulse ?? Saturation of the dressing at the skin site ?? Sudden onset of anxiety ?? Upper back or chest pain ?? Shortness of breath ?? Check the dressing or band-aid throughout the day for any increase in drainage. Keep the dressingdry for 24 hours and then remove it. If you notice excessive bleeding from the skin apply pressure to the site and seek medical attention. ?? Call your physician for a follow-up appointment. The results of the procedure will be sent to thereferring MD and it usually takes 3-4 days. ?? If you have been discharged with a small amount of air around your lung (i.e., a pneumothorax) and need to return for a chest x-ray to a facility other than [facility] because of worsening symptoms, you may need to know the amount of air so that the physician interpreting your film can determine if it isenlarging. PLEASE BRING THIS FORM WITH YOU TO THE EMERGENCY ROOM. The distance the lung is displacedinferiorly from the apex of the chest is ____ cm. ?? IF YOU HAVE ANY QUESTIONS OR CONCERNS REGARDING THE PROCEDURE, PLEASE CALL THE INTERVENTIONAL RADIOLOGY CLINIC AT . SOMEONE IS AVAILABLE TO TAKE YOUR CALL 24 HOURS A DAY. ?? documented in this encounter Medications at Time of Discharge Medication Sig Dispensed Refills Start Date End Date atazanavir (REYATAZ) 300 Take 300 mg by 0 06/14/2011 mg capsule mouth daily. buPROPion (WELLBUTRIN SR) Take 100 mg by 0 06/14/2011 100 mg SR tablet mouth daily. lamivudine (EPIVIR) 300 mg Take 300 mg by 0 06/14/2011 tablet mouth daily. Raltegravir (ISENTRESS) Take 400 mg by 0 06/14/2011 400 mg Tab mouth 2 times daily. ritonavir (NORVIR) 100 mg Take 100 mg by 0 06/14/2011 capsule mouth daily. tenofovir (VIREAD) 300 mg Take 300 mg by 0 06/14/2011 tablet mouth daily. documented as of this encounter Discharge Disposition Disposition Code Departure Means Destination Home or Self Care documented in this encounter Progress Notes Kate Martinez RN - 05/23/2011 1424 EST 1420 Assumed care of patient. Lying supine -on O2 2L/min via NC. Denies pain. Partner & researchstudy in to see patient.Remains NPO for chest xray scheduled for 1600.1440 Patient c/o Pressure on right side of chest- No change in O2 sat of 99 min 2 l/min via NC.-denies pain- No change in Color of skin.Reported to Jonah CORNEJO via alphapage.1500 Sleeping in naps.S/O at bedside.1530 Patient states pressure feeling is less now.1550 Patient off to xray via stretcher with Aide & O2 remaining on.1605 Returned from Chest xray- remains on O2.States pressure remains right chest. Denies pain.1614 Jonah CORNEJO in to see patient.1620 Patient tolerated orthostatic VS well. Taking po well.1627Patient discharged to home with S/O via wheelchair without dyspnea. Frank Simmons PA-C - 05/23/2011 1416 EST Post Procedure Check Patient has no c/o pain or SOB. Blood pressure 129/84, pulse 50, temperature 36.1 ??C (97 ??F), temperature source Temporal, resp. rate 16, height 175.3 cm (69), weight 78.472 kg (173 lb), SpO2 100.00%. CXR-moderate left apical PTX 4 hr post procedure CXR shows slight decrease in PTX 41 yo male with right lung nodule s/p CT guided lung biopsy Stable Will repeat CXR in 2 hrs. Keep pt on 02 via [facility] D/[facility] home F/u Dr. Franz for bx results Seek emergency care for change in breathing. Call IR with questions. Resume home medications. emma Parada RN - 05/23/2011 1152 EST At 1150 pt admitted to CVU per stretcher from IR/CT status post lung bx. Bed in lowest position. Side rails up. Call josue within reach. Karl PO food & liquids. Partner at bedside. Pt is very sleepy and arousable. Pt's sat on RA is 91-92%. 1315 Dr. Franz here to see pt and his partner Jason Ramirez RN - 05/23/2011 1010 EST Reviewed Labs, MAR, Pt history and Allergies. Pt ID'd by name lala. Assessed IV. Explained goalsof procedure and sedation. Pt brought into room via stertcher. Pt moved self to table. Positioned prone on table. BP cuff, EKG Leads and Pulse Ox placed on Pt. VSS. Pt in SR on monitor. Safety strap inplace. Engineer Specialist Scan completed. 1005- Ruiz Moment completed with all in room. Right Upper Back prepped and draped in usual sterile fashion. Right Upper Lobe Lung biopsy completed. Fentanyl 250 mcg and Versed 5 mg given for pt comfort. Report called to LYDIA Forrest in CVU . Pt transferred back to CVU via stretcher in stable condition. Kiara Gregorio RN - 05/23/2011 0825 EST 0820 Guanakito Vinsonbarbara arrived to the Cardiovascular Unit via ambulatory. Patient identified per [facility] policy and oriented to Unit. Reviewed pre-procedure instructions with Guanakito Cedillo. Discussed history,med list, Allergies, NPO, Sedation,& Procedure information. All questions answered & patientverbalizes understanding. Pre-CT Lung Biopsy prep completed per protocol. Stretcher in low position with side rails up & call josue within patient reach. All questions answered. 0900 Partner Fernando at bedside 0930 offerred warm blanket, position change and bathroom break. All pt wants is food. No other needsexpressed. 0948 to IR via stretcher with RN ponReanna valdes RN - 05/22/2011 1048 EST Spoke with patient regarding procedure scheduled for 05/23/11. 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 Patient states understanding with no questions at this time. documented in this encounter H&P Notes Frank Simmons PA-C - 05/23/2011 0930 EST Sedation for Procedure History & Physical Date: 05/23/2011 Time: 16:02 Location: CT Planned Procedure: Right Lung biopsy Chief Complaint/Indications for Procedure: New Right Apical Lung Lesion History: Previous Complication with Sedation and/or Anesthesia? No Allergies: Allergies Allergen Reactions ??? Penicillins Rash ??? Sulfa (Sulfonamide Antibiotics) Current Medications: Prescriptions prior to admission Medication Sig Dispense Refill ??? atazanavir (REYATAZ) 300 mg capsule Take 300 mg by mouth daily. ??? ritonavir (NORVIR) 100 mg capsule Take 100 mg by mouth daily. ??? Raltegravir (ISENTRESS) 400 mg Tab Take 400 mg by mouth 2 times daily. ??? tenofovir (VIREAD) 300 mg tablet Take 300 mg by mouth daily. ??? lamivudine (EPIVIR) 300 mg tablet Take 300 mg by mouth daily. ??? buPROPion (WELLBUTRIN SR) 100 mg SR tablet Take 100 mg by mouth daily. Past Medical History: Past Medical History Diagnosis Date ??? Screening colonoscopy 2008 ??? HIV positive Social History: History reviewed. No pertinent past surgical history. History Substance Use Topics ??? Smoking status: Current Everyday Smoker -- 1.0 packs/day ??? Smokeless tobacco: Not on file ??? Alcohol Use: Yes socially Family History: History reviewed. No pertinent family history. Review of Systems as pertinent: Physical: Vital Signs: BP 121/85 Pulse 56 Temp(Src) 36.1 ??C (97 ??F) (Temporal) Resp 22 Ht 175.3 cm (69) Wt 78.472 kg (173 lb) BMI 25.55 kg/m2 SpO2 96% Heart Examination: Cardiac Regularity: Regular Respiratory Examination: Respiratory Pattern: Regular Breath Sounds Right: Clear Breath Sounds Left: Clear Additional physical exam related to the proposed procedure, patient activity, disease state and treatment as pertinent: Assessment: Previous complications with sedation or anesthesia?: No Airway Concerns: None Anesthesia Classification: ASA 2 Fasting Time: Time of last liquid intake: 0430 (sip coffee with pills) Date of Last Liquid Intake: 05/23/11 Time of last solid intake: 2100 Date of last solid intake: 05/22/11 Patient Appropriate Candidate for Planned Sedation?: Yes documented in this encounter Procedure Notes Change Person, Ashley - 05/28/2011 1139 ESTAssociated Order(s): PROCEDURE REPORTS - SCANNED Frank Jeffery PA-C - 05/23/2011 1141 EST IR Procedure Note Procedure: CT guided right lung biopsy Date Performed: 05/23/2011 Radiologist/Medical Facilities Section Director(s): MD Casimiro/LAUREEN Simmons Sedation/Anesthesia: Versed 5 mg Fentanyl 250 mcg Time Out: A time-out was completed prior to procedure verifying correct patient, procedure, site, positioning, and special equipment if applicable. Estimated Blood Loss: Unless otherwise noted, there was no blood loss, specimens removed, cultures obtained, or drains retained. Specimens: FNA x multiple Fluoroscopy Time: See dictated procedure note Contrast Volume: none Complications: none Condition: stable Post Procedure Diagnosis: Right lung nodule Findings: Cells for cytologic diagnosis and culture Recommendations: F/u cytology and cx Frank Simmons PAC 05/23/2011 11:41 documented in this encounter Miscellaneous Notes Scanned Note-Null - Change Person, Scan - 05/28/2011 1139 EST canned Note- Null - Change Person, Scan - 05/28/2011 1139 EST canned Note- Null - Change Person, Scan - 05/28/2011 1139 EST documented in this encounter Plan of Treatment Not on filedocumented as of this encounter Procedures Procedure Name Priority Date/Time Associated Comments Diagnosis PROCEDURE REPORTS - 05/28/2011 11:39 Resu lts for this SCANNED EST procedure are i n the results section. CHEST PA STAT 05/23/2011 16:04 Results for this EST procedure are i n the results section. CHEST PA STAT 05/23/2011 13:50 Results for this EST procedure are i n the results section. BACTERIAL Routine 05/23/2011 11:19 Results for this CULTURE/SMEAR, EST procedure are in RESPIRATORY the results section. FUNGUS CULTURE/SMEAR Routine 05/23/2011 11:19 Res ults for this EST procedure are i n the results section. AFB CULTURE/SMEAR, Routine 05/23/2011 11:18 Resul ts for this OTHER EST procedure are i n the results section. PROTIME STAT 05/23/2011 8:30 Results for this EST procedure are i n the results section. COMPLETE BLOOD COUNT STAT 05/23/2011 8:30 Resu lts for this EST procedure are i n the results section. documented in this encounter Results PROCEDURE REPORTS - SCANNED (05/28/2011 11:39 EST) Specimen Narrative This result has an attachment that is no t available. Transcriptions Change Person, Scan - 05/28/2011 11:[address] CHEST PA (05/23/2011 16:04 EST) Anatomical Region Laterality Modality Other Specimen Narrative [facility] - 05/23/2011 16:22 EST CHEST PA ??May 23, 2011 04:04:00 PM Signs and Symptoms/Comments: ??s/p right lung bx c/b PTX Findings: Comparison 05/23/2011 Upright PA view of the chest shows mild interval increase in the size of the right pneumothorax since the prio r film. The bones, soft tissues and cardio mediastinal contours are unchanged. There is a lung nodule in the right apex. The lungs otherwise are clear accounting for the low lung volumes. Procedure Note 05/23/2011 CHEST PA May 23, 2011 04:04:00 PM Signs and Symptoms/Comments: s/p right l uli bx c/b PTX Findings: Comparison 05/23/2011 Upright PA view of the chest shows mild interval increase in the size of the right pneumothorax since the prio r film. The bones, soft tissues and cardio mediastinal contours are unchanged. There is a lung nodule in the right apex. The lungs otherwise are clear accounting for the low lung volumes. Performing Organization Address City/State/ZIP Code Phon e Number [facility] CHEST PA (05/23/2011 13:50 EST) Anatomical Region Laterality Modality Other Specimen Narrative [facility] - 05/23/2011 14:08 EST CHEST PA ??May 23, 2011 01:50:00 PM Signs and Symptoms/Comments: ??s/p right lung biopsy Findings: Upright PA view of the chest following r ight lung biopsy shows a small to moderate sized apical pneumotho rax. There is no evidence of hemothorax. The bones, soft tissues and cardio mediastinal contours are unremarkable. There is an ill-define d mass present in the right lung apex. The left lung is clear. Procedure Note 05/23/2011 CHEST PA May 23, 2011 01:50:00 PM Signs and Symptoms/Comments: s/p right l uli biopsy Findings: Upright PA view of the chest following r ight lung biopsy shows a small to moderate sized apical pneumotho rax. There is no evidence of hemothorax. The bones, soft tissues and cardio mediastinal contours are unremarkable. There is an ill-define d mass present in the right lung apex. The left lung is clear. Performing Organization Address City/State/ZIP Code Phon e Number [facility] BACTERIAL CULTURE/SMEAR, RESPIRATORY (05/23/2011 11:19 EST) Specimen Description Fine Needle Asp [address] Lung, right upper LAB lobe Gram Smear Result Few Polys [facility] Gram Smear Result No alveolar [address] macrophages seen LAB Gram Smear Result No bacteria seen [facility] Result No growth [facility] Report Status 05/28/[address] [facility] [facility] Specimen Fine Needle Asp Performing Organization Address City/State/ZIP Code Phon e Number [facility] [address] [place] [address] [facility] [address] [place] [address] FUNGUS CULTURE/SMEAR, OTHER (05/23/2011 11:19 EST) Specimen Description Fine Needle Asp [address] [facility] Lung, right upper lobe 1cc Fungal Smear No fungi seen [facility] Result No fungi isolated [facility] Report Status 06/20/[address] [facility] [facility] Specimen Fine Needle Asp Performing Organization Address City/State/ZIP Code Phon e Number [facility] [address] [place] [address] [facility] [facility] [address] [place] [address] AFB CULTURE/SMEAR, OTHER (05/23/2011 11:18 EST) Specimen Description Fine Needle Asp [address] [facility] Lung, right upper lobe 1cc Acid Fast No acid-fast [facility] bacilli seen Result No acid-fast [facility] bacilli isolated Report Status 07/05/[address] [facility] [facility] Specimen Fine Needle Asp Performing Organization Address [facility]/ZIP Code Phon e Number [facility] [address] [place] [address] [facility] [address] [place] [address] PROTIME (05/23/2011 8:30 EST) Pro Time 11.3 9.5 - 13.[address] [facility] [facility] secs I.N.R. 1.0 0.9 - 1.[address] [facility] Comment: Ratio Moderate Intensity Coumadin INR = 2.0-3.0 Adjustments in anticoagulant therapy dose should be based upon the INR and NOT the Pro Time. Specimen Blood specimen (specimen) Performing Organization Address [facility] Phon e Number [facility] [address] [place] [address] [facility] [facility] [address] [place] [address] (ABNORMAL) HEMAGRAM (05/23/2011 8:30 EST) Pathologist Sig nature WBC 8.37 4.0 - 10.4 K/cmm [facility] RBC 4.46 4.36 - 5.78 M/cmm [facility] Hemoglobin 15.6 13.8 - 17.3 gm/dl [facility] HCT 44.1 39.5 - 50.2 % [facility] MCV 99 (H) 81 - [address] [facility] MCH 35.0 (H) 27.6 - 33.[address] [facility] MCHC 35.4 32.8 - 36.4 gm/dl [facility] PLT 175 141 - 320 K/cmm [facility] RDW-CV 13.9 11.8 - 14.1 % [facility] Specimen Blood specimen (specimen) Performing Organization Address [facility] Phon e Number [facility] [address] [place] [address] [facility] [address] [place] [address] documented in this encounter Visit Diagnoses Not on filedocumented in this encounter Administered Medications Inactive Administered Medications - up to 3 most recent administrations Medication Order MAR Action Action Date Dose Rate Site fentanyl citrate (PF) 50 mcg/mL Given 05/23/2011 11:35 EST 250 m cg injection 25-250 mcg 25-250 mcg, intravenous, ONCE PRN, 1 dose, Starting on Leeann 05/23/11 at 1019, Until Leeann 05/23/11 at 1135, Other, radiology, Routine, Intraprocedure midazolam (VERSED) injection 0.5-10 mg Given 05/23/2011 11:34 EST 5 mg 0.5-10 mg, intravenous, ONCE PRN, 1 dose, Starting on Leeann 05/23/11 at 1019, Until Leeann 05/23/11 at 1134, Sedation, Routine, Intraprocedure sodium chloride 0.9 % (NS) infusion New Bag 05/23/2011 9:09 EST 50 mL/hr 50 mL/hr at 50 mL/hr, 50 mL/hr, intravenous, CONTINUOUS, Starting on Leeann 05/23/11 at 0845, Until Leeann 05/23/11 at 1846, Routine, Preprocedure documented in this encounter Active and Recently Administered Medications Times are shown in EST. Continuous Medication Order 05/21/2011 05/22/2011 05/23/2011 sodium chloride 0.9 % (NS) infusion (CANCELED) 0909 (New Bag - Provider: Kiara Gregorio RN) at 50 mL/hr, Intravenous, CONTINUOUS, St arting Leeann 05/23/11 at 0845, Until Leeann 05/23/11 at 1846 PRN Medication Order 05/21/2011 05/22/2011 05/23/2011 fentanyl citrate (PF) 50 mcg/mL injection 25-250 mcg (COMPLETED) 1135 (Given - Provider: Jason Sanchez RN - Comment: given in divided doses intra procedure) 25-250 mcg, Intravenous, ONCE PRN, 1 dos e, Starting Leeann 05/23/11 at 1019, Until Leeann 05/23/11 at 1135, Other, radiology midazolam (VERSED) injection 0.5-10 mg (COMPLETED) 1134 (Given - Provider: Jason Sanchez RN - Comment: given in divided doses intra procedure) 0.5-10 mg, Intravenous, ONCE PRN, 1 dose , Starting Leeann 05/23/11 at 1019, Until Leeann 05/23/11 at 1134, Sedation documented in this encounter Orders Nursing Count Last Ordered Date First Ordered Date BEDREST 1 05/23/2011 NURSING COMMUNICATION 1 05/23/2011 REMOVE IV 1 05/23/2011 Discharge Count Last Ordered Date First Ordered Date DISCHARGE PATIENT 1 05/23/2011 documented in this encounter Care Teams Freelance Web Designer Relationship Specialty Start Date End Date Hanane Pollock PHARMACEUTICAL ASSISTANT PCP - General 01/30/09 02/23/19 [facility] [address] [place] [address] documented as of this encounter
--- OUTSIDE RECORDS SUMMARY | 2022-05-02 11:05 | XMS_ITS | Encounter Summary ---
:1970 Author Organization [facility] Address [address] [place] [address] Care Team Providers Name Role Phone Hanane Pollock NP Primary Care Provider Encounter Details Date Type Department Care Team Description 09/24/2012 Orders Only [facility] Infectious Chelle Franz MD Disease - [address] [facility] [address] [place] [address] Social History Tobacco Use Types [...] Procedure Name Priority Date/Time Associated Comments Diagnosis COMPLETE BLOOD COUNT Routine 09/21/2012 9:18 Resu lts for this AND DIFFERENTIAL EDT procedure a re in the results section. PHOSPHORUS Routine 09/21/2012 9:18 Results for this EDT procedure are i n the results section. COMPREHENSIVE Routine 09/21/2012 9:18 Results for this METABOLIC PANEL (CMP) EDT proced ure are in the results section. documented in this encounter Results (ABNORMAL) COMPREHENSIVE METABOLIC PANEL (CMP) (09/21/2012 9:18 EDT) GFR, Calculated, >=60.00 mL/min/1.73m [facility] External 2 [facility] Glucose, Serum, 89 70 - 110 [facility] External mg/dL [facility] Albumin, External 4.2 3.4 - 5.0 [facility] g/dL [facility] Total Alkaline 97 38 - 126 U/L [facility] Phosphatase, [facility] ALT, External 48Comment: Please see 12 - 78 U/L [facility] scanned report in [facility] for [facility] interpretation AST, External 18 15 - 37 U/L [facility] BUN, External 15 7 - 18 mg/dL [facility] Calculated Not given [facility] Calcium, External [facility] Calcium, External 8.8 8.5 - 10.1 [facility] mg/dL [facility] Chloride, 104 98 - 107 [facility] External mmol/L [facility] CO2, External 26.2 21.0 - 32.0 [facility] mmol/L [facility] Creatinine, 1.0 0.8 - 1.3 [facility] External mg/dL [facility] Fasting?, Unknown [facility] External [facility] Potassium, 4.3 3.5 - 5.1 [facility] External mmol/L [facility] Sodium, External 141 136 - 145 [facility] mmol/L [facility] Total Protein, 7.2 6.4 - 8.2 [facility] External g/dL [facility] Bilirubin, Total, 1.62 (A) 0.2 - 1.0 [facility] External mg/dL [facility] Specimen Blood specimen (specimen) Performing Organization Address City/State/ZIP Code Phon e Number [facility] (ABNORMAL) HEMAGRAM AND DIFFERENTIAL (09/21/2012 9:18 EDT) WBC, External 9.02Comment: Please 4.4 - 10.8 [facility] see scanned report in k/cumm [facility] for [facility] and interpretation RBC, External 4.95 4.50 - 6.00 [facility] Hemoglobin, 16.9 13.5 - 17.5 [facility] External gm/dL [facility] HCT, External 48.4 40.0 - 50.0 [facility] % [facility] MCV, External 97.8 (A) 80 - 95 [facility] cu/jose roberto [facility] MCH, External 34.1 (A) 27.0 - 33.0 [facility] pg [facility] MCHC, External 34.9 32.0 - 36.0 [facility] % [facility] PLT, External 207 130 - 400 [facility] x1000/uL [facility] RDW-CV, External 13.7 11.5 - 14.5 [facility] % [facility] Neutrophils, 51.6 40 - 74 % [facility] External [facility] Lymphocytes, 36.1 19 - 44 % [facility] External [facility] Monocytes, 7.0 3.0 - 10.0 % [facility] External [facility] Eosinophils, 4.1 1 - 7.0 % [facility] External [facility] Basophils, 1.0 0.0 - 2 % [facility] External [facility] ABS Neutrophils, 4.65 1.2 - 6.7 [facility] External [facility] ABS Lymphs, 3.26 1.2 - 3.4 [facility] External [facility] ABS Monocytes, 0.63 0.11 - 0.7 [facility] External [facility] ABS Eosinophils, 0.37 0 - 0.7 [facility] External k/[facility] ABS Basophils, 0.09 0.0 - 0.2 [facility] External k/[facility] Specimen Blood specimen (specimen) Performing Organization Address City/State/ZIP Code Phon e Number [facility] PHOSPHORUS (09/21/2012 9:18 EDT) Pathologist Sig nature Phosphorus, External 2.9 2.5 - 4.9 mg/dL [facility] Specimen Blood specimen (specimen) Performing Organization Address City/State/ZIP Code Phon e Number [facility] documented in this encounter Visit Diagnoses Not on filedocumented in this encounter Care Teams Web Ui Designer Relationship Specialty Start Date End Date Hanane Pollock NP PCP - General 01/30/09 02/23/19 [facility] [address] [place] [id number] documented as of this encounter
--- OUTSIDE RECORDS SUMMARY | 2022-05-02 11:05 | XMS_ITS | Encounter Summary ---
:1970 Author Organization [facility] Address [address] [place] [address] Care Team Providers Name Role Phone Hanane Pollock NP Primary Care Provider Encounter Details Date Type Department Care Team Description 08/06/2011 Documentation Visit [facility] Ceci Fletcher RN Infectious Disease - [facility] [address] [place] [address] Social History Tobacco Use Types [...] documented as of this encounter Progress Notes Ceci Fletcher RN - 08/06/2011 0833 EST [place] informed that biopsy was negative, which he states he knew. He was informed that the cultures were negative per Dr. Franz. He was instructed to call Hanane Pollock at [facility] to make sure he has an appointment to discuss details of plan with Dr. Franz. documented in this encounter Plan of Treatment Not on filedocumented as of this encounter Visit Diagnoses Not on filedocumented in this encounter Care Teams Optical Instruments Supervisor Relationship Specialty Start Date End Date Smith, Hanane G, DRYWALL SPRAYER PCP - General 01/30/09 02/23/19 [facility] [address] [place] [address] documented as of this encounter
--- OUTSIDE RECORDS SUMMARY | 2022-05-02 11:05 | XMS_ITS | Encounter Summary ---
:1970 Author Organization [facility] Address [address] [place] [address] Care Team Providers Name Role Phone Hanane Pollock NP Primary Care Provider Reason for Visit Reason Comments HIV Positive/AIDS Encounter Details Date Type Department Care Team Description 01/29/2012 Office Visit [facility] Juli Franz, AIDS (acquired immune deficiency syndrome) ([facility]); Infectious Disease - Chronic active viral hepatitis B ([facility]); [facility] Chronic hepatitis C without mention of hepatic coma [address] [place], [place] [address] Social History Tobacco Use Types [...] Sign Reading Time Taken Comments Blood Pressure 130/80 01/29/2012 1035 EDT Pulse - - Temperature 36.3 ??C (97.3 ??F) 01/29/2012 1035 EDT Respiratory Rate - - Oxygen Saturation - - Inhaled Oxygen Concentration - - Weight 79 kg (174 lb 2.6 oz) 01/29/2012 1035 EDT Height - - Body Mass Index 25.72 05/23/2011 0832 EST documented in this encounter Progress Notes Lavonne Ng - 01/30/2012 0824 EDT Faxed copy of office note and med list to Hanane Pollock. Faxed lab orders to [facility]. Juli Zaragoza MD - 01/29/2012 1038 EDT [facility] FOLLOWUP NOTE DOS:01/29/2012 Last seen: 10/02/2011 SUBJECTIVE: [place] presents for reevaluation of his HIV disease and his chronic hepatitis. Since he was last seen he has had an acute illness with nausea and vomiting and diarrhea. He had a bug bite this am to the back of the neck and within minutes of the bite developed pruritis of his palms and then developed generalized flushing and a feeling of thickness in his throat. He treated with Benadryl at home with improvement. He never developed SOB. He had a history of a similar reaction to a bug bite in the past where he was seen in the ED - treated with Benadryl. His energy level has been OK and he is working when he can. His appetite has been good. No other acute complaints today. Allergies reviewed and updated in[facility]ISM MEDICATIONS: reviewed and updated inPRISM Of note he stopped taking his Wellbutrin a couple of months ago Viread 300 mg once a day. Ritonavir 100 mg once a day. Epivir 300 mg once a day. Atazanavir 300 mg once a day. Isentress 400 mg twice daily. PAST MEDICAL HISTORY: Nothing to add. SOCIAL HISTORY: Smoking 1 pack every 3 days - did use Chantix ETOH occasionally Lives with his partner in their new house They have chickens, 1 cat and 1 dog at home. 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 REVIEW OF SYSTEMS: A 10-point review of systems really only significant for the findings mentioned above and: No change in vision but does c/o light sensitivity No frequent HAs occ SHULTZ, no CP No GI or sx No F/C/NS OBJECTIVE: Wt 79 kg (174 lb 2.6 oz) B/P 130/80 T 36.3 No scleral icterus, conjunctivae pink. Pupils equal. He has no oral lesions. Fair dentition. No cervical or supraclavicular lymphadenopathy. Does have a palpable hive like lesion with central puncture on right posterior neck Lungs: clear. Cardiac exam reveals a regular rhythm. Abdomen: Bowel sounds are present, soft, nontender, no hepatosplenomegaly or masses appreciated. Extremities: He has no edema. He has chronic changes in his nails which are stable. No joint abnormalities. No acute rash DIAGNOSTIC DATA: WBC 8.77, hemoglobin 16.5 platelet count 210,000. Differential really unremarkable. Chemistries: His creatinine was 1.1. Alk phos wnl. His ALT was 39 with an AST of 16. CD4 count was 736 and 26% HIV PCR was detectable but < 20 copies. CK 118 Last lipid panel: TGs 164 HDL 35 LDL 98 HBV DNA 10/2011 was < 357 HAV Ab neg ASSESSMENT AND PLAN: 1. HIV positive. [place] has AIDS by definition. He has had cryptococcal meningitis. He has done well on his present antiretroviral therapy. I think he has good adherence. He has tolerated the meds well.I am concerned that his Cr was up a bit on last labs but it is down with labs done prior to this visit. I think that we need to watch that closely. CK was elevated on prior labs but CK done in preparation for this visit was wnl. His viral load is undetectable. His CD4 count is stable. We plan to continue his present regimen and would have him have repeat blood work and a followup with myself in the comprehensive care clinic in about 4 months. 2. Tobacco use - smoking but less. 3. Depression. He says that he had no refills for his Wellbutrin so he stopped. He does not feel that he is depressed off the meds. Follw off Wellbutrin for now. 4. Chronic hepatitis B and hepatitis C. At the time of his most recent liver biopsy it was consistent with treated [...] progression of his fibrosis on therapy based on his most recent biopsy. HBV DNA neg. An abdominal US failed to reveal any liver abnormality. 5. Health maintenance. Lipid panel in 10/2011 was acceptable. Hep A antibody neg so would reimmunize with HAV vaccine 6. 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 Will need to follow up imaging later this spring or early summer. 7. Elevated BP - he had his BP done after he received his immunization. He saw Hanane last week at [facility] and his BP was nl. He has not had HTN. Will follow BP for now. 8. ? Allergic reaction to insect bie 9. Minor ocular complaints - will see ophtho in 2 Weeks. documented in this encounter Plan of Treatment Not on filedocumented as of this encounter Visit Diagnoses Diagnosis AIDS (acquired immune deficiency syndrom e) (HCC-CMS) (HCC) Human immunodeficiency virus [HIV] disea se Chronic active viral hepatitis B (HCC) Viral hepatitis B without mention of hep atic coma, chronic, without mention of hepatitis delta Chronic hepatitis C without mention of h epatic coma documented in this encounter Care Teams Electrical Machinist Relationship Specialty Start Date End Date Hanane Pollock NP PCP - General 01/30/09 02/23/19 [facility] [address] [place] [address] documented as of this encounter
--- OUTSIDE RECORDS SUMMARY | 2022-05-02 11:05 | XMS_ITS | Encounter Summary ---
:1970 Author Organization [facility] Address [address] [place] [address] Care Team Providers Name Role Phone Hanane Pollock NP Primary Care Provider Encounter Details Date Type Department Care Team Description 05/23/2011 Results Only [facility] Jeremi Simmons, Interventional Radiology - [place] [facility] [address] [facility], [address] [place], [place] [id number] [place] [address] [phone] (Wo rk) Social History Tobacco Use Types [...] Name Priority Date/Time Associated Diagnosis Comme nts CYTOPATHOLOGY Routine 05/23/2011 0:00 EST Results for this procedure are i n the results section . documented in this encounter Results CYTOPATHOLOGY (05/23/2011 0:00 EST) Pathology Report: CYTOPATHOLOGY REPORT [facility] Reports generated via electronic interface contain lui ginal data; however they are lacking the format of the original re port. Caution should be taken when reading/interpreting unfo rmatted reports. Name: ? KALEB CEDILLO ? Accession #: ? [id number] : ? 1970 (Age: 41) ??M ?Collect Date: ? 05/14 Location: ? [facility] ? Receive Date : ? 05/23/2011 Provider: ? JEREMI CORNEJO Copy to: ?HANANE CHRISTIANSON MD ? CYTOLOGIC DIAGNOSIS: ? 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 ??See comment. ? COMMENT: ? This case has been di scussed with Dr. Juli Franz on 05/24/11. ??There is no evidence of malignancy in this sampling of th e right lung mass. ??There is abundant necrosis present and within the necrosis, the re are relatively frequent, variably sized aci d fast bacilli highlighted with the acid fast stain. There is no evidence of fun gal organisms on fungal stain. ??The background shows a mixture of a small amount of lymphocytes, neutrophils and histiocytes with the addition of reactive bronchial cells and mesothelial cells sampled. ??The cell block is relatively paucicel lular and shows a small amount of necrotic material. This case has been reviewed by Dr. Sathish Cabrera who concurs with the presence of acid fast bacilli. ??Identification of the definitive organism is pending culture. ??Please refer to microbiology report for fur ther diagnostic information. ??(Dr. Palomares)/[facility] Document reviewed and electronically signed by: ? ADRIAN PALOMARES MD Report Date: ??05/27/2011 17:31 By the signature above, the attending physician certif ies that he/she has personally conducted a gross and/or microscopic examin ation of the described specimens and rendered or confirmed the above diagnosi s. Specimen Type: ? Lung, Fine Needle Aspiration, Right apex Clinical History: ?Tobacco user who landa d ongoing cough and had CT which showed a right lung nodule 2.6 x 1.3cm ? Rapid Interpretation: ? Lung, right, apical n odule (2.6 x 1.3 cm) CT guided fine needle aspiration: Evaluation episode # 1: ? Passes 1-3 : ? Paucicellular, blood and scant inflammatory cells. ?? Evaluation episode # 2: ? Passes 4-6: ? Necrot ic material and scant inflammatory cells. ? All needles rinse d in RPMI. Evaluation episode # 3: ? Passes 7-8: ? Blood, scant cellularity. Additional dedicated passes in culture ? media. ?? Evaluation episode #4: ? Passes 9-10: ? Blood and groups of benign mesothelial cells. ? Additional dedicated passes in culture media. Evaluation episode # 5: ? Passes 11-12: ? Necr otic material, scant inflammatory cells and groups of benign ? mesothelial cells. ?Additional dedicated passes in culture media. (Dr. Isaiah Cuevas; 05/23/11 at 12:15 PM) I personally reviewed the slides and agree with the di agnoses. (Dr. Juana Palomares; 05/23/11 at 12:18 PM) Gross Description: ? 15 fixed prepared sli geronimo and 5 air dried prepared slides were received. ? End of Report Specimen Performing Organization Address City/State/ZIP Code Phon e Number [facility] [address] [place] [address] [facility] [address] [place] [address] documented in this encounter Visit Diagnoses Not on filedocumented in this encounter Care Teams Financial Wellness Coach Relationship Specialty Start Date End Date Hanane Pollock NP PCP - General 01/30/09 02/23/19 [facility] [address] [place], [place] [address] documented as of this encounter
--- OUTSIDE RECORDS SUMMARY | 2022-05-02 11:05 | XMS_ITS | Encounter Summary ---
:1970 Author Organization [facility] Address [address] [place] [address] Care Team Providers Name Role Phone Hanane Pollock NP Primary Care Provider Reason for Visit Reason Comments Follow-up Encounter Details Date Type Department Care Team Description 11/17/[address] [facility] Juli Franz, AIDS (acquired immune deficiency syndrome) ([facility]) (Primary Dx); Infectious Disease - MD Encount er for long-term (current) use of other medications; [facility] Viral hepatitis B without me ntion of hepatic coma, chronic, without mention of hepatitis delta; [address] Pulmonary nodule; [place], [place] [address] Chronic hepatitis C without mention of hepatic coma [phone] Social History Tobacco Use Types Packs/Day Years Used Date Current Every Day Smoker 1 Tobacco Cessation: Ready to Quit: No; Co unseling Given: Yes Alcohol Use Standard Drinks/Week Comments No .[id number] (1 standard drink = 0.6 oz pure alcohol) socially Alcohol Habits Answer Date Recorded How [...] Weight 80 kg (176 lb 5.9 oz) 11/17/2013 0938 EDT Height - - Body Mass Index 26.05 05/23/2011 0832 EST documented in this encounter Ordered Prescriptions Prescription Sig Dispensed Refills Start Date End Date tenofovir (VIREAD) 300 mg Take 1 Tab by mouth 30 Tab 3 0 11/17/2013 03/30/2014 tabletIndications: AIDS daily. (acquired immune deficiency syndrome) ([facility]) ([facility]), Encounter for long-term (current) use of other medications ritonavir (NORVIR) 100 mg Take 1 Tab by mouth 30 Tab 3 0 11/17/2013 03/30/2014 tabletIndications: AIDS every 24 hours. (acquired immune deficiency syndrome) ([facility]) ([facility]), Encounter for long-term (current) use of other medications Raltegravir (ISENTRESS) Take 1 Tab by mouth 60 Tab 3 01/201403/30/2014 400 mg tabletIndications: 2 times daily. AIDS (acquired immune deficiency syndrome) ([facility]) ([facility]), Encounter for long-term (current) use of other medications lamiVUDine (EPIVIR) 300 mg Take 1 Tab by mouth 30 Tab 3 11/17/2013 03/30/2014 tabletIndications: AIDS daily. (acquired immune deficiency syndrome) ([facility]) ([facility]), Encounter for long-term (current) use of other medications atazanavir (REYATAZ) 300 Take 1 Cap by mouth 30 Cap 3 03/30/2014 mg capsuleIndications: daily. AIDS (acquired immune deficiency syndrome) ([facility]) ([facility]), Encounter for long-term (current) use of other medications documented in this encounter Progress Notes Lavonne Ng - 11/18/2013 0907 EDT Mailed to Hanane Pollock Juli Zaragoza MD - 11/17/2013 0940 EDT [facility] FOLLOWUP NOTE DOS 11/17/2013 Last seen: 07/28/2013 SUBJECTIVE: Guanakito presents for reevaluation of his HIV disease and his chronic hepatitis B and C. Since he was last seen he has been feeling fairly well. Fatigues quickly but can work through it. Had 24 hour GI illness over the winter. No other acute illnesses Goes to sleep at 9pm but awakens from 1 - 3 am and is up for the day. Then needs a nap later in the day. His appetite has been good. No acute complaints today Allergies reviewed and updated in [facility] MEDICATIONS: reviewed and updated in [facility] (No missed doses) Viread 300 mg once a day. Ritonavir 100 mg once a day. Epivir 300 mg once a day. Atazanavir 300 mg once a day. Isentress 400 mg twice daily. PAST MEDICAL HISTORY: Nothing to add SOCIAL HISTORY: Smoking 1 pack every day ETOH occasionally + MJ daily Lives with his partner They have 35 chickens, 1 cat and 2 dogs at home. He had to put his dog of 15 yrs down a couple of days ago He is not working They are sexually active very infrequently but report safer sex FAMILY HISTORY: Nothing to add. REVIEW OF SYSTEMS: A 10-point review of systems was performed and was negative No change in vision Occasional mild VICK No GI or sx. No recent BRBPR No dysphagia or odynophagia No oral lesions No CP No increased cough, no increased SOB No LE edema No rash Denies focal numbness or weakness No fever, chills, NS OBJECTIVE: Wt 80 kg (176 lb 5.9 oz) BMI 26.03 kg/m2 No scleral icterus, conjunctivae pink. Pupils equal. He has no oral lesions. No cervical or supraclavicular lymphadenopathy. Lungs: clear Cardiac exam reveals a regular rhythm. Abdomen: slightly distended. Bowel sounds are present, soft, nontender, no hepatosplenomegaly or masses appreciated. Extremities: He has no edema. He has chronic changes in his nails which are stable. No axillary adenopathy No acute rash. Alopecia appears improved DIAGNOSTIC DATA: CBC stable Chemistries significant for: creatinine 1.2 PO4 3.0 glc 89 Bili 1.56 Alk phos wnl AST/ALT 19/45 CK 132 Albumin 4.5 Lytes wnl Lipid panel: LDL 100 HDL 28 TGs 156 CD4 count was 857 and 29% HIV PCR detected but < 20 copies ASSESSMENT AND PLAN: 1. 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 He has done well on his present antiretroviral therapy. I think he has good adherence. He has tolerated the meds well. His viral load has beendetectable but remains low. His CD4 count is stable to improved. I have been concerned that his Cr has gone up a bit but it appears to be holding. His phosphorus is holding steady. As his present medications are not only treating his HIV but are also treating his chronic hepatitis B I think that we will need to try to continue him on his tenofovir. We will need to watch his creatinine closely. Would continue his present regimen and would have him have repeat blood work and a followup with myself in the comprehensive care clinic in about 4 months. 2. Tobacco use -still smoking and he is actually contemplating quitting. 3. Depression - continues to do well off of his antidepressant therapy. 4. Chronic hepatitis B and hepatitis C. At the time of his liver biopsy 05/2010 it was consistent with treated hep B, and there really was no evidence of activity of his hepatitis C; in fact, we were not able to amplify HCV for genotyping and he has never been treated for his hep C. He is on therapy for his hep B, and we did not see any evidence of progression of his fibrosis based on that biopsy. HBV DNA has been undetectable on 3TC and TDF. Avoid hepatotoxins. Limit alcohol 5. Health maintenance. Lipid panel significant for low HDL - recommended exercise and fish oil, although stressed that I think the best intervention would be to quit smoking Hep A antibody neg so wouldreimmunize with HAV vaccine. We did not have HAV vaccine available but will try to obtain this for his next appointment. Tdap was given in 09/2011. 6. 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 He remains asymptomatic. Last CXR was stable. If any change may need repeat CT of the chest. documented in this encounter Plan of Treatment Not on filedocumented as of this encounter Visit Diagnoses Diagnosis AIDS (acquired immune deficiency syndrom e) ([facility]) (HCC) - Primary Human immunodeficiency virus [HIV] disea se Encounter for long-term (current) use of other medications Viral hepatitis B without mention of hep atic coma, chronic, without mention of hepatitis delta Pulmonary nodule Solitary pulmonary nodule Chronic hepatitis C without mention of h epatic coma documented in this encounter Discontinued Medications Medication Sig Discontinue Reason Start Date End Date atazanavir (REYATAZ) 300 Take 1 Cap by mouth Reorder 4 11/17/2013 mg capsuleIndications: daily. AIDS (acquired immune deficiency syndrome) ([facility]) ([facility]) lamiVUDine (EPIVIR) 300 Take 1 Tab by mouth Reorder 07/21/2013 11/17/2013 mg tabletIndications: daily. AIDS (acquired immune deficiency syndrome) ([facility]) ([facility]) Raltegravir (ISENTRESS) Take 1 Tab by mouth Reorder 07/21/2013 11/17/2013 400 mg tabletIndications: 2 times daily. AIDS (acquired immune deficiency syndrome) ([facility]) ([facility]) ritonavir (NORVIR) 100 mg Take 1 Tab by mouth Reorder 07/21/19 14 11/17/2013 tabletIndications: AIDS every 24 hours. (acquired immune deficiency syndrome) ([facility]) ([facility]) tenofovir (VIREAD) 300 mg Take 1 Tab by mouth Reorder 07/21/19 14 11/17/2013 tabletIndications: AIDS daily. (acquired immune deficiency syndrome) ([facility]) ([facility]) documented as of this encounter Care Teams Paper Maker Relationship Specialty Start Date End Date Hanane Pollock NP PCP - General 01/30/09 02/23/19 [facility] [address] [place] [address] documented as of this encounter
--- OUTSIDE RECORDS SUMMARY | 2022-05-02 11:05 | XMS_ITS | Encounter Summary ---
:1970 Author Organization [facility] Address [address] [place] [address] Care Team Providers Name Role Phone Hanane Pollock NP Primary Care Provider Reason for Visit Reason Onset Date Comments Medications Refill 06/23/2012 Encounter Details Date Type Department Care Team Description 06/23/2012 Refill [facility] New Franz MD Ca dications Refill Infectious Disease - [address] [address] Social History Tobacco Use Types Packs/Day Years [...] Telephone Encounter - New Mix RN - 06/23/2012 4507 EST Notified partner Fernando that Jeane from [facility] notified [facility] that Guanakito could have 1 month of refills and Hanane Pollock will order more refills. Fernando stated he sees Dr. Osei mast and will ask for more refills. Also mentioned when the pharmacy gives the last refill, if they sent the office a fax for more fills, could be smoother with no lapse in taking medication. [place], RN elephone Encounter - Beena Wayne - 06/23/2012 1509 EST Partner Fernando calling saying he cannto reach Hanane Phill, and that Guanakito needs refills on all of his medication . He did not have a complete listing of what that would be. Uses [facility] pharmacy. Fernando would like a call back when this has been called in at [phone]. Fernando states he needs this called in today. documented in this encounter Plan of Treatment Not on filedocumented as of this encounter Visit Diagnoses Not on filedocumented in this encounter Care Teams Wrapping Clerk Relationship Specialty Start Date End Date Hanane Pollock, COLLECTOR OF AQUARIUM SPECIMENS PCP - General 01/30/09 02/23/19 [facility] [address] [place] [address] documented as of this encounter
--- OUTSIDE RECORDS SUMMARY | 2022-05-02 11:05 | XMS_ITS | Encounter Summary ---
:1970 Author Organization [facility] Address [address] [place] [address] Care Team Providers Name Role Phone Hanane Pollock NP Primary Care Provider Reason for Visit Reason Onset Date Comments Medication Problem 01/25/2015 Encounter Details Date Type Department Care Team Description 01/25/2015 Telephone [facility] Juli Franz MD Me dication Problem Infectious Disease - [facility] [address] [place], [place] [id number] Social History Tobacco Use Types Packs/Day Years Used Date Current Every Day Smoker Cigarettes 1 Alcohol Use Standard Drinks/Week Comments No .[id number] (1 standard drink = 0.6 oz pure [...] this encounter Miscellaneous Notes Telephone Encounter - Juli Franz MD - 01/25/2015 1812 EDT TC from Fernando stating that Guanakito 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 I spoke to [facility] - they order the meds once monthly. Lorie Flo last prescribed the meds 11/2014. They have 2 more refills left on that RX so they have active Rxs at [facility]. documented in this encounter Plan of Treatment Not on filedocumented as of this encounter Visit Diagnoses Not on filedocumented in this encounter Care Teams Solar Pv Installer Relationship Specialty Start Date End Date Hanane Pollock, CODING QUALITY COORDINATOR PCP - General 01/30/09 02/23/[address] [address] documented as of this encounter
--- OUTSIDE RECORDS SUMMARY | 2022-05-02 11:05 | XMS_ITS | Encounter Summary ---
:1970 Author Organization [facility] Address [address] [place] [address] Care Team Providers Name Role Phone Hanane Pollock NP Primary Care Provider Reason for Referral Consult (Routine/Next Available) - Specialty Report Received Specialty Diagnoses / Procedures Referred By Contact Refer red To Contact General Surgery Diagnoses Perianal mass Juli Franz MD Moore, Bharat Blanchard MD [address] [facility] [address], [facility] [address] [place] [address] Phone: Fax: Referral ID Status Reason Start Expiration Visits Visits Date Date Requested Authorized [id number] Specialty Specialty 1 1 Report Services 5 Received Required Question Answer Reason for Request: HIV + with nl CD4 and fully suppressed virus on HAART, now with perianal nodule and hematoch ezia Comments Pt needs biopsy of nodule to r/o tumor. Also needs eval for intermittent hematochezia. No active bleeding at pres ent. Last colonoscopy was 2008. Reason for Visit Reason Comments Follow-up Encounter Details Date Type Department Care Team Description 06/28/2015 Office Visit [facility] Juli Franz Decre ased hemoglobin (Primary Dx); Infectious Disease - MD Tom ceballos; [facility] Encounter for long-term (cur rent) use of high-risk medication; [address] [facility] AIDS ([facility]); [place], [place] [address] Perianal mass [phone] Social History Tobacco Use Types Packs/Day Years Used Date Current Every Day Smoker Cigarettes 1 Tobacco Cessation: Ready to Quit: No; [...] Reading Time Taken Comments Blood Pressure 130/80 06/28/2015 2209 EST Pulse - - Temperature - - Respiratory Rate - - Oxygen Saturation - - Inhaled Oxygen Concentration - - Weight 80.1 kg (176 lb 9.4 oz) 06/28/2015 2209 EST Height - - Body Mass Index 26.08 05/23/2011 0832 EST documented in this encounter Ordered Prescriptions Prescription Sig Dispensed Refills Start Date End Date varenicline (CHANTIX ZULMA) Take one 0.5mg 53 Tab 0 201401/06/2017 0.5 mg (11)- 1 mg (42) tablet once daily x tablet 3 days then take one 0.5mg tablet twice daily x 4 days then take one 1mg tablet twice daily documented in this encounter Progress Notes Lavonne Ng - 06/30/2015 1609 EST Faxed lab orders to [facility]. Juli Richards MD - 06/28/2015 1243 EST [facility] FOLLOWUP NOTE DOS 06/28/2015 Last seen: 12/14/2014 SUBJECTIVE: Guanakito presents for reevaluation of his HIV disease and his chronic hepatitis B and C. Since he was last seen he has been feeling fairly well. No acute illnesses Energy same Does not think that he is depressed His appetite has been good. No acute complaints today Does admit to rectal bleeding about a month ago - lasted about 2 weeks. He had to wear a pad and change it several times a day. Has had no further bleeding in last 2 weeks Allergies reviewed and updated in [facility] MEDICATIONS: reviewed and updated in [facility] Denies missing doses Viread 300 mg once a day. Ritonavir 100 mg once a day. Epivir 300 mg once a day. Atazanavir 300 mg once a day. Isentress 400 mg twice daily. ibuprofen prn - infrequent PAST MEDICAL HISTORY: Nothing to add SOCIAL HISTORY: Smoking 1 pack every day ETOH 1 case of beer in the past 6 months + MJ daily Lives with his partner who is also HIV + They do not practice safer sex They have 29 chickens and 4 roosters, 1 cat and 2 dogs at home. The one legged chicken (Denise) also lives in the house FAMILY HISTORY: Father was on HD before he . ? Reason for his ESRD. He was known to have HTN Mother alive REVIEW OF SYSTEMS: A 10-point review of systems was performed and was negative No change in vision - still blurry but not wearing his glasses as he broke them and he cannot affordnew glasses No VICK No oral lesions, dysphagia or odynophagia He does not complain of SOB with exertion on a regular basis Denies chronic cough No CP No change in bowels No abd pain, N, V No sx + BRBPR as above No rash Had pinching sensation in his heels recently - no numbness No fever, chills or NS OBJECTIVE:BP 150/98 mmHg Wt 80.1 kg (176 lb 9.4 oz) Alert and appropriate, NT, NAD, comfortable on RA No scleral icterus, conjunctivae pink. Pupils equal. No oral lesions - has missing teeth upper and lower gum No cervical or supraclavicular lymphadenopathy. Lungs: No dullness to percussion. No wheezes, rales, rhonchi, but poor air movement Cardiac exam reveals a regular rhythm. Abdomen: Bowel sounds are present, soft, nontender, no hepatosplenomegaly or masses appreciated. Extremities: He has no edema. He has chronic changes in his nails which are stable. No acute rash. Patchy alopecia w/o change Anal area with collapsed hemorrhoid but no ulceration or active bleeding. He has a pedunculated nodule with if firm and w/o ulceration DIAGNOSTIC DATA: Last labs CBC: WBC 11.83 Hct 41.3 Plts 234K Chemistries significant for: creatinine 1.55 (up from 1.0) PO4 3.0 glc 82 Bili 1.49 Alk phos 89 AST/ALT 24/ Lytes wnl CK 205 HIV PCR undetectable CD 4 1157 (35 %) HCV RNA undetected HBV DNA undetected ASSESSMENT AND PLAN: 1. 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 He has done well on his present antiretroviral therapy. I think he has good adherence. His HIV PCR is undetectable. He has tolerated the meds well. His Cr is up on his present labs. He has not been taking any ibuprofen. One concern is that he is creatinine is up secondary to long-term toxicity from his tenofovir. His phosphorus has been holding steady. As his present medications are not only treating his HIV but are also treating his chronichepatitis B I think that we will need to try to continue him on his tenofovir. His calculated creatinine clearance is good enough that we do not need to dose adjust his medications at present. Would con tinue his present meds but will do further evaluation for his creatinine. (See below) . If his creatinine continues to increase we will need to dose adjust his medications. If we were to stop his tenofovir and 3TC he would be at risk for a flare of his hepatitis B. We will need to watch his creatinineclosely. He will have repeat blood work next week. 2. Tobacco use - He is actually talking seriously about quitting. He used Chantix previously with good effect and he is asking to try this again. Reviewed the drug interactions and there are no concerning interactions with his present meds. I think that he has COPD. I stressed the need for him to quitsmoking to prevent progression of his lung disease and to decrease his risk for other complications such as lung and bladder cancer. I ordered the CHantix starter pack in December but he does not sound like he ever picked it up. I stressed the fact that the medication alone is not adequate for smoking cessation he really needs to be committed to stopping. 3. Chronic hepatitis B and hepatitis C. [...] of his fibrosis based on that biopsy. ALT was up slightly on his labs. HBV DNA and HCV RNA undetectable so difficult to attribute elevated ALT to viral hepatitis. No risk factors for steatohepatitis except for fdc nucleoside analogue use. We could also be dealing with drug toxicity. Will need to follow his liver enzymes. Avoid hepatotoxins. Limit alcohol. Will plan for repeat abd US. 4. Health maintenance. He was due for repeat lipid panel but it was not done so will add to blood work next week. Was also supposed to have repeat syphilis serology. Hep A antibody neg so would reimmunize with HAV vaccine - we did not have any vaccine available today. Tdap was given in 09/2011. Quantiferon neg. Flu vaccine and Prevnar today. 5 Lung nodule - he underwent biopsy of concerning lung nodule 05/2011 - path revealed AFB but culture was negative. He remains asymptomatic. Last CXR was stable. If any change may need repeat CT of thechest. 6. Perianal nodule - somewhat pedunculated. Soft and mobile. Does not look like a wart. Should be biopsied. 7. BRBPR - does have a collapsed hemorrhoid But no ulcerations and no active bleeding. He had colonoscopy 09/2008 . 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 He did drop his Hct so we willneed to follow for recurrent bleeding. 8. Increased Cr - big jump since last labs. He is taking NSAIDS but not frequently. Could have renaltoxicity from TDF vs renal disease related to HBV. Unclear as to etiology of father's ESRD. He will try to get more info form his Mom. Will plan to repeat Cr in 2 weeks. Will also check UA at that time. Will aslo check renal US to R/O obstruction contributing to renal dysfunction. 9. Decreased HCT - most likely secondary to recent hematochezia. No evidence of active bleeding at present. documented in this encounter Plan of Treatment Scheduled Referrals Name Type Priority Associated Diagnoses Order S chedule AMB CONS/FOLLOW UP Outpatient Referral Routine Perianal mass O rdered: GENERAL SURGERY 06/30/2015 documented as of this encounter Visit Diagnoses Diagnosis Decreased hemoglobin - Primary Anemia, unspecified Hematochezia Blood in stool Encounter for long-term (current) use of high-risk medication Encounter for long-term (current) use of other medications AIDS ([facility] ([facility]) Human immunodeficiency virus [HIV] disea se Perianal mass Other symptoms involving digestive syste m documented in this encounter Discontinued Medications Medication Sig Discontinue Reason Start Date End Date GLUC HOWARD/CHONDRO HOWARD Take 2 Tabs by Patient Stopped Taking 06/28/2015 A/VIT C/MN (GLUCOSAMINE mouth daily. CHONDROITIN MAXSTR ORAL) varenicline (CHANTIX Take one 0.5mg Reorder 12/15/201406/30 ZULMA) 0.5 mg (11)- 1 mg tablet once daily (42) tablet x 3 days then take one 0.5mg tablet twice daily x 4 days then take one 1mg tablet twice daily documented as of this encounter Care Teams Compliance Monitor Relationship Specialty Start Date End Date Hanane Pollock NP PCP - General 01/30/09 02/23/19 [facility] [address] [place] [address] documented as of this encounter
--- OUTSIDE RECORDS SUMMARY | 2022-05-02 11:05 | XMS_ITS | Encounter Summary ---
:1970 Author Organization [facility] Address [address] [place] [address] Care Team Providers Name Role Phone Hanane Pollock NP Primary Care Provider Encounter Details Date Type Department Care Team Description 07/21/2013 Orders Only [facility]IOUS Juli Franz B, BRYCE S (acquired immune DISEASE MD deficiency syndrome) [address] [facility] ([facility] (Primary Dx) [place], [place] [id number] Social History Tobacco Use Types Packs/Day Years [...] on file documented as of this encounter Ordered Prescriptions Prescription Sig Dispensed Refills Start Date End Date tenofovir (VIREAD) 300 mg Take 1 Tab by mouth 30 Tab 3 0 07/21/2013 11/17/2013 tabletIndications: AIDS daily. (acquired immune deficiency syndrome) ([facility] ([facility]) ritonavir (NORVIR) 100 mg Take 1 Tab by mouth 30 Tab 3 0 07/21/2013 11/17/2013 tabletIndications: AIDS every 24 hours. (acquired immune deficiency syndrome) ([facility] ([facility]) Raltegravir (ISENTRESS) Take 1 Tab by mouth 60 Tab 3 02/201411/17/2013 400 mg tabletIndications: 2 times daily. AIDS (acquired immune deficiency syndrome) ([facility] ([facility]) atazanavir (REYATAZ) 300 Take 1 Cap by mouth 30 Cap 3 11/17/2013 mg capsuleIndications: daily. AIDS (acquired immune deficiency syndrome) ([facility] ([facility]) lamiVUDine (EPIVIR) 300 mg Take 1 Tab by mouth 30 Tab 3 07/21/2013 11/17/2013 tabletIndications: AIDS daily. (acquired immune deficiency syndrome) ([facility] ([facility]) documented in this encounter Plan of Treatment Not on filedocumented as of this encounter Visit Diagnoses Diagnosis AIDS (acquired immune deficiency syndrom e) ([facility] ([facility]) - Primary Human immunodeficiency virus [HIV] disea se documented in this encounter Discontinued Medications Medication Sig Discontinue Reason Start Date End Date lamiVUDine (EPIVIR) 300 Take 1 Tab by mouth Reorder 04/06/2013 07/21/2013 mg tabletIndications: daily. AIDS (acquired immune deficiency syndrome) ([facility] ([facility]) atazanavir (REYATAZ) 300 Take 1 Cap by mouth Reorder 3 07/21/2013 mg capsuleIndications: daily. AIDS (acquired immune deficiency syndrome) ([facility]) ([facility]) Raltegravir (ISENTRESS) Take 1 Tab by mouth Reorder 04/06/2013 07/21/2013 400 mg tabletIndications: 2 times daily. AIDS (acquired immune deficiency syndrome) ([facility]) ([facility]) ritonavir (NORVIR) 100 mg Take 1 Tab by mouth Reorder 04/06/20 13 07/21/2013 tabletIndications: AIDS every 24 hours. (acquired immune deficiency syndrome) ([facility] ([facility]) tenofovir (VIREAD) 300 mg Take 1 Tab by mouth Reorder 04/06/20 13 07/21/2013 tabletIndications: AIDS daily. (acquired immune deficiency syndrome) ([facility] ([facility]) documented as of this encounter Care Teams Settlement Processor Relationship Specialty Start Date End Date Hanane Pollock NP PCP - General 01/30/09 02/23/19 [facility] [address] [place] [address] documented as of this encounter
--- OUTSIDE RECORDS SUMMARY | 2022-05-02 11:05 | XMS_ITS | Encounter Summary ---
:1970 Author Organization [facility] Address [address] [place] [address] Care Team Providers Name Role Phone Hanane Pollock NP Primary Care Provider Encounter Details Date Type Department Care Team Description 12/20/2014 Orders Only [facility] Infectious Chelle Franz MD [place] [address] [place] [address] Social History Tobacco Use Types Packs/Day Years Used Date Current Every Day Smoker Cigarettes 1 Alcohol Use Standard Drinks/Week Comments No .[id number] (1 standard drink = 0.6 oz pure [...] Associated Comments Diagnosis COMPLETE BLOOD COUNT Routine 12/14/2014 11:44 Res ults for this AND DIFFERENTIAL EDT procedure a re in the results section. PHOSPHORUS Routine 12/14/2014 11:44 Results for this EDT procedure are i n the results section. COMPREHENSIVE Routine 12/14/2014 11:44 Results fo r this METABOLIC PANEL (CMP) EDT proced ure are in the results section. documented in this encounter Results (ABNORMAL) HEMAGRAM AND DIFFERENTIAL (12/14/2014 11:44 EDT) WBC, External 10.70 4.4 - 10.8 [facility] RBC, External 5.07 4.50 - 6.00 [facility] Hemoglobin, 17.2 13.5 - 17.5 [facility] g/dL [facility] HCT, External 49.2 40.0 - 50.0 % [facility] MCV, External 97.0 (A) 80 - 95 fL [facility] MCH, External 33.9 (A) 27.0 - 33.0 pg [facility] MCHC, External 35.0 32.0 - 36.0 % [facility] PLT, External 212 130 - 400 [facility] x1000/uL [facility] RDW-CV, External 13.6 11.8 - 14.1 % [facility] Neutrophils, 62.3 % [facility] Lymphocytes, 26.5 % [facility] Monocytes, 8.6 % [facility] Eosinophils, 2.0 % [facility] Basophils, 0.4 % [facility] ABS Neutrophils, 6.67 1.2 - 6.7 [facility] ABS Lymphs, 2.84 1.2 - [address].4 [facility] ABS Monocytes, 0.92 (A) 0.11 - 0.7 [facility] ABS Eosinophils, 0.21 0.0 - 0.7 [facility] ABS Basophils, 0.04Comment: 0.0 - 0.2 [facility] External See scans in [facility] prism. LAB Specimen Blood specimen (specimen) Performing Organization Address City/State/ZIP Code Phon e Number [facility] PHOSPHORUS (12/14/2014 11:44 EDT) Pathologist Sig nature Phosphorus, External 3.4 2.5 - 4.9 mg/dL [facility] Specimen Blood specimen (specimen) Performing Organization Address City/State/ZIP Code Phon e Number [facility] (ABNORMAL) COMPREHENSIVE METABOLIC PANEL (CMP) (12/14/2014 11:44 EDT) GFR, Calculated, >=60.00 >=60.00 [facility] External mL/min/1.73m2 [facility] Glucose, Serum, 87 70 - 100 [facility] External mg/dL [facility] Albumin, External 4.4 3.4 - 5.0 [facility] g/dL [facility] Total Alkaline 87 46 - 116 U/L [facility] Phosphatase, [facility] External LAB ALT, External 49 12 - 78 U/L [facility] AST, External 20 15 - 37 U/L [facility] BUN, External 21 (A) 7 - 18 mg/dL [facility] Calculated Not given [facility] Calcium, [facility] Calcium, External 9.2 8.5 - 10.1 [facility] mg/dL [facility] Chloride, External 102 98 - 107 [facility] mmol/L [facility] CO2, External 26.3 21.0 - 32.0 [facility] mmol/L [facility] Creatinine, 1.0 0.8 - 1.3 [facility] mg/dL [facility] Fasting?, External Unknown [facility] Potassium, 3.9 3.5 - 5.1 [facility] mmol/L [facility] Sodium, External 140 136 - 145 [facility] mmol/L [facility] Total Protein, 7.5 6.4 - 8.2 [facility] g/dL [facility] Bilirubin, Total, 2.25 0.2 - 1.0 [facility] External (A)Comment: See mg/dL [facility] scans in prism. LAB Specimen Blood specimen (specimen) Performing Organization Address City/State/ZIP Code Phon e Number [facility] documented in this encounter Visit Diagnoses Not on filedocumented in this encounter Care Teams Medical Data Analyst Relationship Specialty Start Date End Date Hanane Pollock NP PCP - General 01/30/09 02/23/19 [facility] [address] [place], [place] [address] documented as of this encounter
--- OUTSIDE RECORDS SUMMARY | 2022-05-02 11:05 | XMS_ITS | Encounter Summary ---
:[address] [facility] Address [address] [place] [address] Care Team Providers Name Role Phone Hanane Pollock NP Primary Care Provider Encounter Details Date Type Department Care Team Description 05/15/2010 Hospital Encounter [facility] Juli Franz, Cardiovascular Unit MD [address] [place] [address] Social History Tobacco Use Types Packs/Day Years Used Date Never Assessed Sex Assigned at Date Recorded Not on file documented as of this encounter Last Filed Vital Signs Vital Sign Reading Time Taken Comments Blood Pressure 114/62 05/15/2010 1500 EDT Pulse 65 05/15/2010 1500 EDT Temperature 36.6 ??C (97.9 ??F) 05/15/2010 1407 EDT Respiratory Rate 20 05/15/2010 1500 EDT Oxygen Saturation 96% 05/15/2010 1500 EDT Inhaled Oxygen Concentration - - Weight 74.8 kg (165 lb) 05/14/2010 1415 EDT Height 177.8 cm (5' 10) 05/14/2010 1415 EDT Body Mass Index 23.68 05/14/2010 1415 EDT documented in this encounter Discharge Instructions InstructionsWhbrooks, Jocelyn Zuniga RN - 05/15/2010 Procedure Site - Liver Physician Performing Procedure - Michael Miranda RADIOLOGY PATIENT EDUCATION INSTRUCTIONS FOLLOWING LIVER BIOPSY PROCEDURE ?? Return home and rest quietly for the remainder of the day. ?? DO NOT drive or make legal decisions today as you may have received sedation medication for your procedure. ?? Have a responsible adult drive you and remain with you the rest of the day if possible. Dependingon the time of your procedure, your activity will be restricted thus making it difficult to prepare meals etc. You may have also received medication that makes you groggy or sleepy. ?? You may resume your normal diet after the procedure. Avoid alcoholic beverages and depressant drugs for 24 hours. ?? DO NOT take aspirin-containing products, ibuprofen, vitamin E, or blood thinning products for 24 hours after the procedure. You may take Tylenol (1-2 tablets every 4-6 hours) for mild discomfort. Call the Radiology Department for pain, unrelieved by Tylenol for the first 24 hours following your procedure. ?? Call your physician immediately or go to the nearest Emergency Room if you develop any of the following - Rapid Heart Rate or Pulse Upper back or chest pain Sudden onset of anxiety Skin color change Saturation or the Band-Aid or dressing Shortness of Breath Sweating Feeling Faint Bloody Stool ?? Check the dressing or Band-Aid throughout the day for any increase in drainage. Keep the Band-Aidor dressing dry for 24 hours. Replace the Band-Aid if necessary. If you notice brisk bleeding, applypressure for 10 minutes and slowly release the pressure to see if the bleeding has stopped. If the bleeding does not stop, go to your Physician or the nearest Emergency Room. ?? The results of your procedure will go to the Physician who ordered the procedure. It may take 2-5days for procedure results to come back. ?? IF YOU HAVE ANY QUESTIONS OR CONCERNS REGARDING THE PROCEDURE, PLEASE CALL THE INTERVENTIONAL RADIOLOGY CLINIC AT . SOMEONE IS AVAILABLE TO TAKE YOUR CALL 24 HOURS A DAY. documented in this encounter Medications at Time [...] Care documented in this encounter Progress Notes Reanna Washington RN - 05/15/2010 1420 EDT 1406 Patient greeted post procedure awake and alert. Denies pain at present. Right upper abdomen dressing CDI. No bleeding or swelling noted. Bed in low position with call josue given and side rails up. 1415 Sipping liquids but sleeps easily. Partner in room with patient. 1455 Continues to sleep at present. 1505 Eating without difficulty. Denies pain. 1535 Discharge instructions given to patient and partner who state understanding with no questions at this time. 1557 Discharged to home with Fernando via wheelchair. hJocelyn guy RN - 05/15/2010 1323 EDT Patient greeted in CVU. Id verified verbally and via armband. Allergy bracelet on wrist. IV patent. Patient brought to Angio 23 for U/S liver biopsy. Consent signed. Patient moved himself onto table. VS obtained and stable. Conscious sedation started. Prepped in usual fashion. Ruiz moment done priorto start of procedure. O2 titration and conscious sedation throughout procedure. Patient received 3.5mg of Versad and 125mcg of Fentanyl during procedure. Patient tolerated procedure well. VS stable throughout procedure. Biopsy samples obtained. Report called to Valdez FREEMAN in CVU. Kiara Arzola RN - 05/15/2010 1224 EDT Pt prepped and awaiting procedure. Partner at bedside. Pain 0/10 Reanna ochoa RN - 05/14/2010 1419 EDT Spoke with patients partner, Fernando, regarding procedure scheduled for 05/15/10. Patient not availableto speak with at time of call. Instructed Fernando that patient was to arrive in registration at 1145, that patient must be NPO after 0500 but he may have a fat free light breakfast prior to 0500, may take routine medications with a sip of water, and to bring a current medication list with him for reviewprior to procedure. Instructed that patient must have a set key driver with him due to sedation he will receive for procedure and Fernando stated that he will be the set key driver. Gave phone number for CVU with any questions patient may have. documented in this encounter Procedure Notes Morales Miranda MD - 05/15/2010 1345 EDT INTERVENTIONAL RADIOLOGY PROCEDURE NOTE Radiologist: Casimiro / Ruth Procedure(s) Performed: U/S guided random liver biopsy Indication/Pre-procedure diagnosis: Hepatitis B/C Post-procedure diagnosis: Same Condition: Stable Anesthesia: Local with Sedation Approach: Right intercostal Medications: IV Versed and fentanyl and local lidocaine 1% Contrast: 0 cc Fluoro time: 0 min EBL: Minimal Specimens: 20g core biopsies x3. Findings: A time-out was completed prior to procedure verifying correct patient, procedure, site, positioning, and special equipment if applicable. Complications: None Recommendations: Per orders. Bridger Miranda MD Interventional Radiology Fellow Pager #[phone] documented in this encounter OR Notes Anesthesia Procedure Notes - Physician Kaplan MD - 05/15/2010 0000 EDT documented in this encounter Miscellaneous Notes Scanned Note-Null - Physician Kaplan MD - 05/15/2010 0000 EDT canned Note-Null - Physician Kaplan MD - 05/15/2010 0000 EDT canned Note-Null - Physician Kaplan MD - 05/15/2010 0000 EDT canned Note-Null - Inpatient, MD Arcadio - 05/15/2010 0000 EDT canned Note-Null - Inpatient, MD Arcadio - 05/15/2010 0000 EDT canned Note-Null - Inpatient, MD Arcadio - 05/15/2010 0000 EDT documented in this encounter Plan of Treatment Not on filedocumented as of this encounter Procedures Procedure Name Priority Date/Time Associated Diagnosis Comme nts PROTIME STAT 05/15/2010 12:00 Results for this EDT procedure are i n the results section. COMPLETE BLOOD STAT 05/15/2010 12:00 Results f or this COUNT EDT procedure are i n the results section. documented in this encounter Results (ABNORMAL) HEMAGRAM (05/15/2010 12:00 EDT) Pathologist Sig nature WBC 7.64 4.0 - 10.4 K/cmm [facility] RBC 4.43 4.36 - 5.78 M/cmm [facility] Hemoglobin 15.6 13.8 - 17.3 gm/dl [facility] HCT 44.3 39.5 - 50.2 % [facility] MCV 100 (H) 81 - [address] [facility] MCH 35.1 (H) 27.6 - 33.[address] [facility] MCHC 35.1 32.8 - 36.4 gm/dl [facility] PLT 207 141 - 320 K/cmm [facility] RDW-CV 13.6 11.8 - 14.1 % [facility] Specimen Blood specimen (specimen) Performing Organization Address City/State/ZIP Code Phon e Number [facility] [address] [place] [address] [facility] [address] [place] [address] PROTIME (05/15/2010 12:00 EDT) Pro Time 12.5 9.9 - 13.1 [facility] secs I.N.R. 1.1 0.9 - 1.[address] [facility] Comment: Ratio ??Moderate Intensity Coumadin INR = 2.0-3.0 Adjustmen ts in anticoagulant therapy dose should be based upon the INR and NOT the Pro Time. ?? Specimen Blood specimen (specimen) Performing Organization Address City/State/ZIP Code Phon e Number [facility] [address] [place] [address] [facility] [address] [place] [address] documented in this encounter Visit Diagnoses Not on filedocumented in this encounter Administered Medications Inactive Administered Medications - up to 3 most recent administrations Medication Order MAR Action Action Date Dose Rate Site fentanyl citrate (PF) 50 mcg/mL Given 05/15/2010 13:37 EDT 125 m cg injection 25-250 mcg 25-250 mcg, intravenous, ONCE PRN, 1 dose, Starting on Fri05/15/10 at 1304, Until Fri05/15/10 at 1337, Pain, radiology, Routine, Intraprocedure midazolam (VERSED) injection 0.5-10 mg Given 05/15/2010 13:38 EDT 3.5 mg 0.5-10 mg, intravenous, ONCE PRN, 1 dose, Starting on Fri05/15/10 at 1304, Until Fri05/15/10 at 1338, Sedation, Routine, Intraprocedure sodium chloride 0.9 % (NS) infusion New Bag 05/15/2010 12:00 EDT 50 mL/hr 50 mL/hr at 50 mL/hr, 50 mL/hr, intravenous, CONTINUOUS, Starting on Fri05/15/10 at 1200, Until Fri05/16/10 at 0017, Routine, Preprocedure documented in this encounter Active and Recently Administered Medications Times are shown in EDT. Continuous Medication Order 05/13/2010 05/14/2010 05/15/2010 sodium chloride 0.9 % (NS) infusion (CANCELED) 1200 (New Bag - Provider: Kiara Gregorio RN) at 50 mL/hr, Intravenous, CONTINUOUS, St arting Fri05/15/10 at 1200, Until Fri05/16/10 at 0017 PRN Medication Order 05/13/2010 05/14/2010 05/15/2010 fentanyl citrate (PF) 50 mcg/mL injection 25-250 mcg (COMPLETED) 1337 (Given - Provider: Jocelyn Cardenas RN - Comment: given in 25-50mcg increments throughout IR Procedure) 25-250 mcg, Intravenous, ONCE PRN, 1 dos e, Starting 05/15/10 at 1304, Until 05/15/10 at 1337, Pain, radiology midazolam (VERSED) injection 0.5-10 mg (COMPLETED) 1338 (Given - Provider: Jocelyn Cardenas RN - Comment: given in 0.5-1mg increments throughout IR Procedure) 0.5-10 mg, Intravenous, ONCE PRN, 1 dose , Starting 05/15/10 at 1304, Until 05/15/10 at 1338, Sedation documented in this encounter Orders Nursing Count Last Ordered Date First Ordered Date BEDREST 1 05/15/2010 INSERT PERIPHERAL IV 1 05/15/2010 NOTIFY PHYSICIAN (SPECIFY) 1 05/15/2010 OXYGEN THERAPY 1 05/15/2010 REMOVE IV 1 05/15/2010 Admission Count Last Ordered Date First Ordered Date ADMIT TO OUTPATIENT 1 05/15/2010 NOTIFY PPS OF DISCHARGE COMPLETE 1 05/15/2010 Discharge Count Last Ordered Date First Ordered Date DISCHARGE PATIENT 1 05/15/2010 documented in this encounter Care Teams Sprue Cutting Press Operator Relationship Specialty Start Date End Date Hanane Pollock NP PCP - General 01/30/09 02/23/19 [facility] [address] [place] [address] documented as of this encounter
--- OUTSIDE RECORDS SUMMARY | 2022-05-02 11:05 | XMS_ITS | Encounter Summary ---
:1970 Author Organization [facility] Address [address] [place] [address] Care Team Providers Name Role Phone Hanane Pollock JITTERBUG OPERATOR Primary Care Provider Encounter Details Date Type Department Care Team Description 09/25/2012 Orders Only [facility] Infectious Chelle Franz MD Disease - [place] [address] [place] [address] Social History Tobacco Use Types [...] on filedocumented in this encounter Care Teams Mouse Breeder Relationship Specialty Start Date End Date Hanane Pollock, SOM PCP - General 01/30/09 02/23/19 [facility] [address] [place], [place] [address] documented as of this encounter
--- OUTSIDE RECORDS SUMMARY | 2022-05-02 11:05 | XMS_ITS | Encounter Summary ---
:1970 Author Organization [facility] Address [address] [place] [address] Care Team Providers Name Role Phone Hanane Pollock NP Primary Care Provider Encounter Details Date Type Department Care Team Description 02/12/2012 Orders Only [facility] OseiJuli, AIDS (acquired immune Infectious Disease - MD deficie ncy syndrome) [place] [address] [place], [place] [id number] Social History Tobacco Use Types Packs/Day Years [...] 1 Cap by mouth 30 Cap 3 06/26/2012 mg capsuleIndications: daily. AIDS (acquired immune deficiency syndrome) ([facility]) ([facility]) ritonavir (NORVIR) 100 mg Take 1 Tab by mouth 30 Tab 3 0 02/12/2012 06/26/2012 tabletIndications: AIDS every 24 hours. (acquired immune deficiency syndrome) ([facility]) ([facility]) lamivudine (EPIVIR) 300 mg Take 1 Tab by mouth 30 Tab 3 02/12/2012 06/26/2012 tabletIndications: AIDS daily. (acquired immune deficiency syndrome) ([facility]) ([facility]) tenofovir (VIREAD) 300 mg Take 1 Tab by mouth 30 Tab 3 0 02/12/2012 06/26/2012 tabletIndications: AIDS daily. (acquired immune deficiency syndrome) ([facility]) ([facility]) Raltegravir (ISENTRESS) Take 1 Tab by mouth 60 Tab 3 07/201106/26/2012 400 mg TabIndications: 2 times daily. AIDS (acquired immune deficiency syndrome) ([facility]) ([facility]) documented in this encounter Plan of Treatment Not on filedocumented as of this encounter Visit Diagnoses Diagnosis AIDS (acquired immune deficiency syndrom e) ([facility]) ([facility]) - Primary Human immunodeficiency virus [HIV] disea se documented in this encounter Discontinued Medications Medication Sig Discontinue Reason Start Date End Date Raltegravir (ISENTRESS) Take 1 Tab by mouth Reorder 10/02/2011 02/12/2012 400 mg Tab 2 times daily. tenofovir (VIREAD) 300 mg Take 1 Tab by mouth Reorder 10/02/19 12 02/12/2012 tablet daily. lamivudine (EPIVIR) 300 Take 1 Tab by mouth Reorder 10/02/2011 02/12/2012 mg tablet daily. ritonavir (NORVIR) 100 mg Take 1 Tab by mouth Reorder 10/02/19 12 02/12/2012 tablet every 24 hours. atazanavir (REYATAZ) 300 Take 1 Cap by mouth Reorder 2 02/12/2012 mg capsule daily. documented as of this encounter Care Teams Health Services Director Relationship Specialty Start Date End Date Hanane Pollock NP PCP - General 01/30/09 02/23/19 [facility] [address] [place] [address] documented as of this encounter
--- OUTSIDE RECORDS SUMMARY | 2022-05-02 11:05 | XMS_ITS | Encounter Summary ---
:1970 Author Organization [facility] Address [address] [place] [address] Care Team Providers Name Role Phone Hanane Pollock NP Primary Care Provider Reason for Visit Reason Comments Follow-up Encounter Details Date Type Department Care Team Description 03/03/2013 Office Visit [facility] Juli Franz Acquired immunodeficiency syndrome ([facility]) (Primary Dx); Infectious Disease - MD Nelly Chronic active type B viral hepatitis ([facility]); [facility] Chronic hepatitis C without mention of hepatic coma; [address] [place] [address] Social History Tobacco Use Types Packs/Day Years Used Date Current Every Day Smoker 1 Tobacco Cessation: Ready to Quit: No; Co unseling Given: Yes Alcohol Use Standard Drinks/Week Comments Yes 0 [...] Sign Reading Time Taken Comments Blood Pressure 130/84 03/03/2013 1305 EDT Pulse - - Temperature - - Respiratory Rate - - Oxygen Saturation - - Inhaled Oxygen Concentration - - Weight 78.8 kg (173 lb 11.6 oz) 03/03/2013 1305 EDT Height - - Body Mass Index 25.65 05/23/2011 0832 EST documented in this encounter Progress Notes Juli Franz MD - 03/03/2013 1308 EDT [facility] FOLLOWUP NOTE DOS 03/03/2013 Last seen: 10/28/2012 SUBJECTIVE: [place] presents for reevaluation of his HIV disease and his chronic hepatitis B and C. Since he was last seen he has been feeling fairly well. He had a tooth infection last week and was seenby Hanane at [place] and treated with clindamycin and narcotic analgesics. He went on to have the tooth extracted on 03/01 and he is having persistent socket pain at present. He denied rash or diarrhea on the clindamycin. His appetite has been good. He c/o feeling more weak overall, but on further questioning it appears that it is really predominately in his UEs. He actually went for a 30 mile bike ride over the weekend. He has no acute complaints today. Allergies reviewed and updated in [facility] MEDICATIONS: reviewed and updated in [facility] (No missed doses) Viread 300 mg once a day. Ritonavir 100 mg once a day. Epivir 300 mg once a day. Atazanavir 300 mg once a day. Isentress 400 mg twice daily. PAST MEDICAL HISTORY: Nothing to add except for dental extraction and infection SOCIAL HISTORY: Smoking 1 pack every day ETOH occasionally(6pk in past 4 months) + MJ daily Lives with his partner They have chickens, 1 cat and 3 dogs at home. He is not working FAMILY HISTORY: Nothing to add. REVIEW OF SYSTEMS: A 10-point review of systems really only significant for the findings mentioned above and: No VICK or change in vision No GI or sx No dysphagia or odynophagia No oral lesions No CP No increased cough, no increased SOB No LE edema No rash Denies numbness No fever, chills, NS OBJECTIVE: BP 130/84 Wt 78.8 kg (173 lb 11.6 oz) No scleral icterus, conjunctivae pink. Pupils equal. He has no oral lesions. No cervical or supraclavicular lymphadenopathy. Lungs: clear with poor air movement bilaterally Cardiac exam reveals a regular rhythm. Abdomen: Bowel sounds are present, soft, nontender, no hepatosplenomegaly or masses appreciated. Extremities: He has no edema. He has chronic changes in his nails which are stable. No acute rash. Alopecia without change Neuro - motor 5/5, unable toelicit reflexes in UE or LE DIAGNOSTIC DATA: Labs done 02/26/2013 CBC: WBC 8.73 Hct 47.3 Plts 204K Chemistries significant for: creatinine 1.2. PO4 3.6 Bili 2.63 Rest of chemistries wnl Lipid panel: LDL 94 HDL 29 TGs 185 CD4 count was 593 and 30% HIV PCR pending ASSESSMENT AND PLAN: 1. 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 He has done well on his present antiretroviral therapy. I think he has good adherence. He informs me today that he has 2 more days of 3TC and the pharmacy cannot obtain the medication for him until after 03/14. He has tolerated the meds well. His viral load has been detectable, but remains low although the most recent HIV PCR result is still pending. His CD4 count is stable to improved. I have been concerned that his Cr has gone up a bit. His phosphorus however is also up. As his present medications are not only treating his HIV but are also treating his chronic hepatitis B I think that we will need to try to continue him on his tenofovir. We will need to watch his creatinine closely. We discussed the possibility of changing his 3TC toFTC but he would like to continue the Epivir. I called Zeina in [facility] and they reported that they would be able to get him the EPIVIR for tomorrow so I called in an RX for a 30 day supply. If his HIV PCR isstable would continue his present regimen and would have him have repeat blood work and a followup with myself in the comprehensive care clinic in about 4 months. 2. Tobacco use -still smoking and he is not ready to quit but encouraged him to set a quit date. He is talking about getting the nicotine inhaler but I stressed that I would not do this unless he is really motivated to quit. 3. Depression - continues to do well [...] of progression of his fibrosis based on his most recent biopsy. HBV DNA remains undetectable. Continue 3TC and TDF. Avoid hepatotoxins. Limit alcohol [...] his next appointment. Tdap was given in 09/2011 6. 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 CXR done after his last visit was stable. If any change may need repeat CT of the chest. 7. HAs - resolved documented in this encounter Plan of Treatment Not on filedocumented as of this encounter Visit Diagnoses Diagnosis Acquired immunodeficiency syndrome (HCC- CMS) (HCC) - Primary Human immunodeficiency virus [HIV] disea se Chronic active type B viral hepatitis (H CC) Viral hepatitis B without mention of hep atic coma, chronic, without mention of hepatitis delta Chronic hepatitis C without mention of h epatic coma Tobacco dependence syndrome Tobacco use disorder documented in this encounter Care Teams Aircraft Time Clerk Relationship Specialty Start Date End Date Hanane Pollock NP PCP - General 01/30/09 02/23/19 [facility] [address] [place] [address] documented as of this encounter
--- OUTSIDE RECORDS SUMMARY | 2022-05-02 11:05 | XMS_ITS | Encounter Summary ---
:1970 Author Organization [facility] Address [address] [place] [address] Care Team Providers Name Role Phone Hanane Pollock NP Primary Care Provider Encounter Details Date Type Department Care Team Description 08/05/2013 Orders Only [facility] Infectious Chelle Franz MD Disease - [facility] [address] [place] [address] Social History Tobacco Use Types Packs/Day Years Used Date Current Every Day Smoker 1 Alcohol Use Standard Drinks/Week Comments Yes .[id number] (1 standard drink = 0.6 oz pure [...] Date/Time Associated Comments Diagnosis HIV 1 RNA QUANTITATION Routine 07/09/2013 8:26 Re sults for this EST procedure are i n the results section. COMPLETE BLOOD COUNT Routine 07/09/2013 8:26 Resu lts for this AND DIFFERENTIAL EST procedure a re in the results section. PHOSPHORUS Routine 07/09/2013 8:26 Results for this EST procedure are i n the results section. CK Routine 07/09/2013 8:26 Results for this EST procedure are i n the results section. LIPID PROFILE Routine 07/09/2013 8:26 Results for this (INCLUDES CHOLESTEROL, EST proce dure are in TRIGLYCERIDES, HDL, the resu lts LDL) section. COMPREHENSIVE Routine 07/09/2013 8:26 Results for this METABOLIC PANEL (CMP) EST proced ure are in the results section. documented in this encounter Results PHOSPHORUS (07/09/2013 8:26 EST) Pathologist Sig nature Phosphorus, External 2.9 2.5 - 4.9 mg/dL [facility] Specimen Blood specimen (specimen) Performing Organization Address City/[facility]/ZIP Code Phon e Number [facility] HIV 1 RNA QUANTITATION (07/09/2013 8:26 EST) HIV1 RNA, DetectedComment: Undetected [facility] Test performed copies/mL [facility] at [facility]. See scan media in Prism Specimen Blood specimen (specimen) Performing Organization Address City/[facility]/ZIP Code Phon e Number [facility] CK (07/09/2013 8:26 EST) Pathologist Sig nature CK, External 105 39 - 308 U/L [facility] Specimen Blood specimen (specimen) Performing Organization Address City/[facility]/ZIP Code Phon e Number [facility] (ABNORMAL) LIPID PROFILE (INCLUDES CHOLESTEROL, TRIGLYCERIDES, HDL, LDL) (07/09/2013 8:26 EST) Cholesterol, 149 50 - 200 [facility] External mg/dL [facility] Triglycerides, 347 (A) 15 - 150 [facility] External mg/dL [facility] HDL, External 20 (A) 40 - 60 mg/dL [facility] LDL, External 76 mg/dL [facility] Chol/HDL Ratio, Not given [facility] Fasting?, External UnknownComment: [facility] See scans for [facility] further LAB interpretation. Specimen Blood specimen (specimen) Performing Organization Address City/[facility]/ZIP Code Phon e Number [facility] (ABNORMAL) HEMAGRAM AND DIFFERENTIAL (07/09/2013 8:26 EST) WBC, External 8.59 4.4 - 10.8 [facility] RBC, External 4.57 4.50 - 6.00 [facility] Hemoglobin, 15.8 13.5 - 17.5 [facility] External g/dL [facility] HCT, External 43.6 40.0 - 50.0 % [facility] MCV, External 95.4 (A) 80 - 95 fL [facility] MCH, External 34.6 (A) 27.0 - 33.0 [facility] pg [facility] MCHC, External 36.2 (A) 32.0 - 36.0 % [facility] PLT, External 193 130 - 400 [facility] x1000/uL [facility] RDW-CV, External 13.7 11.8 - 14.1 % [facility] Neutrophils, 52.2 40 - 74 % [facility] Lymphocytes, 36.0 19 - 44 % [facility] Monocytes, 7.3 3.0 - 10.0 % [facility] Eosinophils, 3.8 1 - 7.0 % [facility] Basophils, 0.6 0.0 - 2.0 % [facility] ABS Neutrophils, 4.48 1.2 - 6.7 [facility] k/[facility] ABS Lymphs, 3.09 1.2 - 3.4 [facility] ABS Monocytes, 0.63 0.11 - 0.7 [facility] ABS Eosinophils, 0.33 0 - 0.7 [facility] ABS Basophils, 0.05Comment: 0.0 - 0.2 [facility] See scans for [facility] further LAB interpretation. Specimen Blood specimen (specimen) Performing Organization Address City/State/ZIP Code Phon e Number [facility] (ABNORMAL) COMPREHENSIVE METABOLIC PANEL (CMP) (07/09/2013 8:26 EST) GFR, Calculated, >=60.00 >=60.00 [facility] mL/min/1.73m2 [facility] Glucose, Serum, 81 70 - 100 [facility] mg/dL [facility] Albumin, External 4.2 3.4 - 5.0 [facility] g/dL [facility] Total Alkaline 78 46 - 116 U/L [facility] External LAB ALT, External 49 12 - 78 U/L [facility] AST, External 20 15 - 37 U/L [facility] BUN, External 17 7 - 18 mg/dL [facility] Calculated Not given [facility] Calcium, [facility] Calcium, External 8.9 8.5 - 10.1 [facility] mg/dL [facility] Chloride, External 106 98 - 107 [facility] mmol/L [facility] CO2, External 28.8 21.0 - 32.0 [facility] mmol/L [facility] Creatinine, 1.2 0.8 - 1.3 [facility] External mg/dL [facility] Fasting?, External Unknown [facility] Potassium, 4.6 3.5 - 5.1 [facility] mmol/L [facility] Sodium, External 144 136 - 145 [facility] mmol/L [facility] Total Protein, 6.9 6.4 - 8.2 [facility] g/dL [facility] Bilirubin, Total, 1.49 0.2 - 1.0 [facility] External (A)Comment: See mg/dL [facility] scans for LAB further interpretation. Specimen Blood specimen (specimen) Performing Organization Address City/State/ZIP Code Phon e Number [facility] documented in this encounter Visit Diagnoses Not on filedocumented in this encounter Care Teams Certified Genetic Counselor Relationship Specialty Start Date End Date Hanane Pollock NP PCP - General 01/30/09 02/23/19 [facility] [address] [place] [id number] documented as of this encounter
--- OUTSIDE RECORDS SUMMARY | 2022-05-02 11:05 | XMS_ITS | Encounter Summary ---
:1970 Author Organization [facility] Address [address] [place] [address] Care Team Providers Name Role Phone Hanane Pollock NP Primary Care Provider Encounter Details Date Type Department Care Team Description 03/05/2013 Documentation Visit [facility] Juli Franz , Infectious Disease - MD [place] [address] [place] [address] Social History Tobacco Use Types Packs/Day [...] encounter Progress Notes Juli Franz MD - 03/05/2013 1636 EDT [facility] - HIV PCR result form 02/26 blood draw was 178 copies Pt had dental infection and tooth extraction the week before blood work was obtained so suspect thatrecent infection may have played a role in increase in HIV viral load. Therefore no change in meds and planned FU documented in this encounter Plan of Treatment Not on filedocumented as of this encounter Visit Diagnoses Not on filedocumented in this encounter Care Teams International Relations Teacher Relationship Specialty Start Date End Date Hanane Pollock, TRAVELIFT OPERATOR PCP - General 01/30/09 02/23/19 [facility] [address] [place] [address] documented as of this encounter
--- OUTSIDE RECORDS SUMMARY | 2022-05-02 11:05 | XMS_ITS | Encounter Summary ---
:1970 Author Organization [facility] Address [address] [place] [address] Care Team Providers Name Role Phone Hanane Pollock NP Primary Care Provider Encounter Details Date Type Department Care Team Description 05/15/2010 Results Only [facility] Loida Miranda Laboratory Services - Efrain Miller [facility] [address] [facility] [address] [place] [address] [place] [id number] (Wo rk) Social History Tobacco Use Types Packs/Day Years Used Date Never Assessed Sex Assigned at Date Recorded Not on file documented as of this encounter Plan of Treatment Not on filedocumented as of this encounter Procedures Procedure Name Priority Date/Time Associated Diagnosis [facility] SURGICAL PATHOLOGY Routine 05/15/2010 0:00 EDT Re sults for this procedure are i n the results section. documented in this encounter Results SURGICAL PATHOLOGY (05/15/2010 0:00 EDT) Pathology Report: SURGICAL PATHOLOGY REPORT ? BRAD SHERMAN Reports generated via electr [employer] interface contain original data; ? LAB however they are lacking the format of the original report. ? Caution should be taken when reading/interpreting unformatted reports. ? Name: ? SNIDE, KALEB P ? Accession #: ? [id number] ? : ? 1970 (Age: 40) ??M ? Collec t Date: ? 05/15/2010 ? Location: ? [facility] ? R eceive Date: ? 05/15/2010 ? Provider: ERIC CHRISTIANSON MD ? Copy to: NEW [place] JOSE RAMON MD ? HANANE G MORGANEY PARI MUTUEL TICKET SELLER ? LOIDA M SCRIVER MD ? Final Pathologic Diagnosis: ? Liver, right lobe, ne edle core biopsy: ? 1. ?Chronic hep atitis consistent with viral hepatitis. ?? See comment. ? - Minimally active (G rade 1/4). ? - Focal bridging fibrosis (S tage 2-3/4). ? Comment: ? The liver biopsy reve als a slightly lobulated architecture focally ? distorted by a few bands of bridging collagen highlighted by the trichrome ? stain. ??There is mildly inc reased portal fibrosis. ??The portal tracts also ? reveal mild, focal increase in lymphoplasmacytic inflammation. ??No active ? hepatocyte damage or acinar inflammation is observed. ??The iron stain reveals ?? trace intrahepatic and Kupff er cell hemosiderin deposition. ??PAS-diastase stain is negative for PAS positive globules. Turret Press Operator sections of this case have been reviewed at [facility] mental consultation conference. ?? (Dr. Cuevas)/mpl ? Document reviewed and electr onically signed by: ? ADRIAN C HOLT MD ? Report ??Date: 05/18/2010 17 :40 ? By the signature above, the attending physician certifies that he/she has ? personally conducted a gross and/or microscopic examination of the described ? specimens and rendered or co nfirmed the above diagnosis. ? Specimen(s) Received: ? Right lobe ? Clinical History: ? HIV, Hepatitis B/C ? Gross Description: ? Received in formalin labelled Mamadou, Kaleb are three lazcano-brown soft ? tissue cores ranging from 1. 8 to 2.1 cm in length by 0.1 cm in diameter. ??The ?? specimen is entirely submitt ed in a single cassette with iron, trichrome, and ?? PAS-amylase requested. ??(Enma Patrick)/kmm ? End of Report ? Specimen Performing Organization Address City/[facility] Phon e Number [facility] [address] [place] [address] SERVICES [facility] [address] [place] [address] documented in this encounter Visit Diagnoses Not on filedocumented in this encounter Care Teams Towel Distributor Relationship Specialty Start Date End Date Hanane Pollock NP PCP - General 01/30/09 02/23/19 [facility] [address] [place], [place] [phone] documented as of this encounter
--- OUTSIDE RECORDS SUMMARY | 2022-05-02 11:05 | XMS_ITS | Encounter Summary ---
:1970 Author Organization [facility] Address [address] [place] [address] Care Team Providers Name Role Phone Hanane Pollock INSIGHTS MANAGER Primary Care Provider Encounter Details Date Type Department Care Team Description 08/09/2013 Orders Only [facility] Infectious Chelle Franz MD Disease - Main [facility] [facility] [address] [place] [address] Social History Tobacco Use Types Packs/Day Years Used Date Current Every Day Smoker 1 Alcohol Use Standard Drinks/Week Comments Yes .[id number] (1 standard drink = 0.6 oz pure [...] on filedocumented in this encounter Care Teams Therapist Physical Relationship Specialty Start Date End Date Hanane Pollock NP PCP - General 01/30/09 02/23/19 [facility] [address] [place], [place] [id number] documented as of this encounter
--- OUTSIDE RECORDS SUMMARY | 2022-05-02 11:05 | XMS_ITS | Encounter Summary ---
:1970 Author Organization [facility] Address [address] [place] [address] Care Team Providers Name Role Phone Hanane Pollock NP Primary Care Provider Reason for Referral Radiology Services (Routine/Next Available) - Closed Specialty Diagnoses / Procedures Referred By Contact Refer red To Contact Diagnoses HCV infection Viral hepatitis B without mention of hepatic coma, chronic, without mention of hepatitis delta Juli Franz MD Procedures RAD US ABDOMEN ONE ORGAN/QUADRANT [address] [place] [address] Referral ID Status Reason Start Date Expiration Date Visits Requ ested Visits Authorized [id number] Closed 03/30/2014 1 1 Reason for Visit Reason Comments Follow-up Encounter Details Date Type Department Care Team Description 03/30/2014 Office Visit [facility] Juli Franz, AIDS (acquired immune deficiency syndrome) (CMS-HCC) (Primary Dx); Infectious Disease - Encount er for long-term (current) use of other medications; [facility] HCV infection; [address] Viral hepatitis B without me ntion of hepatic coma, chronic, without mention of hepatitis delta [place], [place] [address] Social History Tobacco Use Types Packs/Day Years Used Date Current Every Day Smoker Cigarettes 1.5 Tobacco Cessation: Ready to Quit: No; Co unseling Given: Yes Alcohol Use Standard Drinks/Week Comments No .[id number] (1 standard drink = 0.6 oz pure [...] Sign Reading Time Taken Comments Blood Pressure 130/90 03/30/2014 1000 EDT Pulse - - Temperature 36.5 ??C (97.7 ??F) 03/30/2014 1000 EDT Respiratory Rate - - Oxygen Saturation - - Inhaled Oxygen Concentration - - Weight 76.4 kg (168 lb 6.9 oz) 03/30/2014 1000 EDT Height - - Body Mass Index 24.87 05/23/2011 0832 EST documented in this encounter Ordered Prescriptions Prescription Sig Dispensed Refills Start Date End Date Raltegravir (ISENTRESS) Take 1 Tab by mouth 60 Tab 3 07/20/2014 400 mg tabletIndications: 2 times daily. AIDS (acquired immune deficiency syndrome) ([facility]) ([facility]), Encounter for long-term (current) use of other medications atazanavir (REYATAZ) 300 Take 1 Cap by mouth 30 Cap 3 07/20/2014 mg capsuleIndications: daily. AIDS (acquired immune deficiency syndrome) ([facility]) ([facility]), Encounter for long-term (current) use of other medications tenofovir (VIREAD) 300 mg Take 1 Tab by mouth 30 Tab 3 0 03/30/2014 07/20/2014 tabletIndications: AIDS daily. (acquired immune deficiency syndrome) ([facility]) ([facility]), Encounter for long-term (current) use of other medications ritonavir (NORVIR) 100 mg Take 1 Tab by mouth 30 Tab 3 0 03/30/2014 07/20/2014 tabletIndications: AIDS every 24 hours. (acquired immune deficiency syndrome) ([facility]) ([facility]), Encounter for long-term (current) use of other medications lamiVUDine (EPIVIR) 300 mg Take 1 Tab by mouth 30 Tab 3 03/30/2014 07/20/2014 tabletIndications: AIDS daily. (acquired immune deficiency syndrome) ([facility]) ([facility]), Encounter for long-term (current) use of other medications documented in this encounter Progress Notes Lavonne Ng - 03/31/2014 0841 EDT Mailed office note, med list and lab orders to Hanane Pollock. Juli Zaragoza MD - 03/30/2014 0942 EDT [facility] FOLLOWUP NOTE DOS 03/30/2014 Last seen: 11/17/2013 SUBJECTIVE: Guanakito presents for reevaluation of his HIV disease and his chronic hepatitis B and C. Since he was last seen he has been feeling fairly well. No acute illnesses. Goes to sleep at 10 pm but awakens ~ 2 am and is up for about an hour before he can go back to sleep- then sleeps until about 5 am. He takes a 2 - 3 hr nap every day. His appetite has been good. No acute complaints today Allergies reviewed and updated in [facility] MEDICATIONS: reviewed and updated in [facility] (No missed doses) Viread 300 mg once a day. Ritonavir 100 mg once a day. Epivir 300 mg once a day. Atazanavir 300 mg once a day. Isentress 400 mg twice daily. PAST MEDICAL HISTORY: Nothing to add SOCIAL HISTORY: Smoking 1.5 pack every day ETOH none + MJ Lives with his partner Not working outside of the home They have 35 chickens, 1 cat and 2 dogs at home. They are sexually active very infrequently but report safer sex FAMILY HISTORY: Nothing to add. REVIEW OF SYSTEMS: A 10-point review of systems was performed and was negative No change in vision Occasional mild VICK Had night sweats x 1 week a month ago but no other sx at that time ?increased cough in am +increased SHULTZ No CP No change in bowels No sx No BRBPR No dysphagia or odynophagia No oral lesions No rash OBJECTIVE: BP 130/90 Temp(Src) 36.5 ??C (97.7 ??F) Wt 76.4 kg (168 lb 6.9 oz) BMI 24.86 kg/m2 Alert and appropriate, NT, NAD, comfortable on RA No scleral icterus, conjunctivae mildly injected. Pupils equal. + diffuse erythema of mucosa of posterior oral cavity w/o focal lesions No cervical or supraclavicular lymphadenopathy. Lungs: few rales at left base. Decreased air movement throughout on left. No dullness to percussion.No increased vocal fremitus Cardiac exam reveals a regular rhythm. Abdomen: slightly distended. Bowel sounds are present, soft, nontender, no hepatosplenomegaly or masses appreciated. Extremities: He has no edema. He has chronic changes in his nails which are stable. No axillary adenopathy No acute rash. Patchy alopecia w/o change DIAGNOSTIC DATA: 03/24/14 Chemistries significant for: creatinine stable @ 1.2 PO4 3.6 glc 90 Bili 1.34 Alk phos 93 AST/ALT / CK 117 Albumin 4.5 Lytes wnl HCV PCR undetectable HBV DNA undetectable HIV PCR pending (drawn incorrectly so redrawn 03/28) Quantiferon negative ASSESSMENT AND PLAN: 1. 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 He has done well on his present antiretroviral therapy. I think he has good adherence. HIs HIV PCR had to be redrawn so awaiting result. He has tolerated the meds well. I have been concerned that his Cr [...] his creatinine closely. Would continue his present regimen. If his HIV PCR is undetectable I would have him have repeat blood work and a followup with myself in the [facility] clinic in 4- 6 months. 2. Tobacco use - he is moving very little air on exam. He has minimal increased respiratory sx. I clearly think tat he has COPD. I stressed the need for him to quit smoking to prevent progression of his lung disease and to decrease his risk for other complications such as lung and bladder cancer. We talked about nicotine replacement. Encouraged him to set a quit date. 3. Depression - continues to do well off of antidepressant therapy. 4. Chronic hepatitis B and hepatitis C. At the time of his liver biopsy 05/2010 it was consistent with treated hep B, and there really was no evidence of activity of his hepatitis C; in fact, we were not able to amplify HCV for genotyping and he has never been treated for his hep C. Repeat HCV RNA was negative. He is on therapy for his hep B, and we did not see any evidence of progression of his fibrosis based on that biopsy. HBV DNA remains undetectable on 3TC and TDF. Avoid hepatotoxins. Limit alcohol. Will obtain RUQ US to eval for liver lesion (screen for HCC). 5. Health maintenance. Lipid panel 11/2013 significant for low HDL. Hep A antibody neg so would reimmunize with HAV vaccine - need to get this for his next appointment. Tdap was given in 09/2011. Influenza vaccine today. Quantiferon neg. Will update pneumonia vaccine with Prevnar at future visit. 6. Lung nodule - he underwent biopsy of concerning lung nodule 05/2011 - path revealed AFB but culture was negative. He remains asymptomatic. Last CXR was stable. If any change may need repeat CT of the chest. documented in this encounter Plan of Treatment Scheduled Orders Name Type Priority Associated Diagnoses Order S chedule RAD US ABDOMEN ONE Imaging Routine HCV infection Ordered: 03/30/2014 ORGAN/QUADRANT Viral hepatitis B without mention of hepatic coma, chronic, without mention of hepatitis delta documented as of this encounter Visit Diagnoses Diagnosis AIDS (acquired immune deficiency syndrom e) (HCC-CMS) (HCC) - Primary Human immunodeficiency virus [HIV] disea se Encounter for long-term (current) use of other medications HCV infection Unspecified viral hepatitis C without he patic coma Viral hepatitis B without mention of hep atic coma, chronic, without mention of hepatitis delta documented in this encounter Discontinued Medications Medication Sig Discontinue Reason Start Date End Date lamiVUDine (EPIVIR) 300 Take 1 Tab by mouth Reorder 11/17/2013 03/30/2014 mg tabletIndications: daily. AIDS (acquired immune deficiency syndrome) (HCC-CMS) (HCC), Encounter for long-term (current) use of other medications ritonavir (NORVIR) 100 mg Take 1 Tab by mouth Reorder 11/18/19 14 03/30/2014 tabletIndications: AIDS every 24 hours. (acquired immune deficiency syndrome) (HCC-CMS) (HCC), Encounter for long-term (current) use of other medications tenofovir (VIREAD) 300 mg Take 1 Tab by mouth Reorder 11/18/19 14 03/30/2014 tabletIndications: AIDS daily. (acquired immune deficiency syndrome) (HCC-CMS) (HCC), Encounter for long-term (current) use of other medications atazanavir (REYATAZ) 300 Take 1 Cap by mouth Reorder 4 03/30/2014 mg capsuleIndications: daily. AIDS (acquired immune deficiency syndrome) ([facility]) ([facility]), Encounter for long-term (current) use of other medications Raltegravir (ISENTRESS) Take 1 Tab by mouth Reorder 11/17/2013 03/30/2014 400 mg tabletIndications: 2 times daily. AIDS (acquired immune deficiency syndrome) ([facility]) ([facility]), Encounter for long-term (current) use of other medications documented as of this encounter Care Teams Pantograph Watcher Relationship Specialty Start Date End Date Hanane Pollock NP PCP - General 01/30/09 02/23/19 [facility] [address] [place] [address] documented as of this encounter
--- OUTSIDE RECORDS SUMMARY | 2022-05-02 11:05 | XMS_ITS | Encounter Summary ---
:1970 Author Organization [facility] Address [address] [place] [address] Care Team Providers Name Role Phone Hanane Pollock NP Primary Care Provider Reason for Visit Reason Onset Date Comments Medications Refill 04/06/2013 Encounter Details Date Type Department Care Team Description 04/06/2013 Refill [facility] Juli Franz MD [place] dications Refill Infectious Disease - [address] [address] Social History Tobacco Use Types Packs/Day Years [...] Tab by mouth 30 Tab 3 0 04/06/2013 07/21/2013 tabletIndications: AIDS daily. (acquired immune deficiency syndrome) ([facility]) ([facility]) ritonavir (NORVIR) 100 mg Take 1 Tab by mouth 30 Tab 3 0 04/06/2013 07/21/2013 tabletIndications: AIDS every 24 hours. (acquired immune deficiency syndrome) ([facility]) ([facility]) Raltegravir (ISENTRESS) Take 1 Tab by mouth 60 Tab 3 07/21/2013 400 mg tabletIndications: 2 times daily. AIDS (acquired immune deficiency syndrome) (HCC-CMS) (HCC) lamiVUDine (EPIVIR) 300 mg Take 1 Tab by mouth 30 Tab 3 04/06/2013 07/21/2013 tabletIndications: AIDS daily. (acquired immune deficiency syndrome) (HCC-CMS) (HCC) atazanavir (REYATAZ) 300 Take 1 Cap by mouth 30 Cap 3 07/21/2013 mg capsuleIndications: daily. AIDS (acquired immune deficiency syndrome) (HCC-CMS) ([facility]) documented in this encounter Miscellaneous Notes Telephone Encounter - Ceci Fletcher RN - 04/06/2013 1057 EDT Guanakito is seen in [facility]. Partner Greg, states they've called and left repeated messages that medications need refilling. Per Greg, this has not been done. Last viral load on 02/26/13 = 178 ABS CD4 959 %CD4 30 Per note written on 03/07/13 - Pt had dental infection and tooth extraction the week before blood work was obtained so suspect that recent infection may have played a role in increase in HIV viral load. Therefore no change in meds and planned FU. (Dr. Franz author) E-RX all HIV Medications to [facility] in [facility]. Seen in [facility] every 4-5 months consistently. Next appt. Not scheduled in [facility] system currently. documented in this encounter Plan of Treatment Not on filedocumented as of this encounter Visit Diagnoses Diagnosis AIDS (acquired immune deficiency syndrom e) (HCC-CMS) ([facility]) - Primary Human immunodeficiency virus [HIV] disea se documented in this encounter Discontinued Medications Medication Sig Discontinue Reason Start Date End Date atazanavir (REYATAZ) 300 Take 1 Cap by mouth Reorder 3 04/06/2013 mg capsuleIndications: daily. AIDS (acquired immune deficiency syndrome) (HCC-CMS) (HCC) lamiVUDine (EPIVIR) 300 Take 1 Tab by mouth Reorder 10/28/2012 04/06/2013 mg tabletIndications: daily. AIDS (acquired immune deficiency syndrome) (HCC-CMS) ([facility]) Raltegravir (ISENTRESS) Take 1 Tab by mouth Reorder 10/28/2012 04/06/2013 400 mg TabIndications: 2 times daily. AIDS (acquired immune deficiency syndrome) ([facility]) ([facility]) ritonavir (NORVIR) 100 mg Take 1 Tab by mouth Reorder 10/29/19 13 04/06/2013 tabletIndications: AIDS every 24 hours. (acquired immune deficiency syndrome) ([facility]) ([facility]) tenofovir (VIREAD) 300 mg Take 1 Tab by mouth Reorder 10/29/19 13 04/06/2013 tabletIndications: AIDS daily. (acquired immune deficiency syndrome) ([facility]) ([facility]) documented as of this encounter Care Teams Crew Manager Relationship Specialty Start Date End Date Hanane Pollock NP PCP - General 01/30/09 02/23/19 [facility] [address] [place] [address] documented as of this encounter
--- OUTSIDE RECORDS SUMMARY | 2022-05-02 11:05 | XMS_ITS | Encounter Summary ---
:1970 Author Organization [facility] Address [address] [place] [address] Care Team Providers Name Role Phone Hanane Pollock FABRIC AWNING REPAIRER Primary Care Provider Encounter Details Date Type Department Care Team Description 05/08/2011 Hospital Encounter [facility] [address] [place] [address] Social History Tobacco Use Types Packs/Day Years Used Date Never Assessed Sex Assigned at Date Recorded Not on file documented as of this encounter Medications at [...] Code Departure Means Destination Home or Self Custodial documented in this encounter Plan of Treatment Not on filedocumented as of this encounter Visit Diagnoses Not on filedocumented in this encounter Care Teams Political Analyst Relationship Specialty Start Date End Date Hanane Pollock, SOM PCP - General 01/30/09 02/23/19 [facility] [address] [place] [address] documented as of this encounter
--- OUTSIDE RECORDS SUMMARY | 2022-05-02 11:05 | XMS_ITS | Encounter Summary ---
:1970 Author Organization [facility] Address [address] [place] [address] Care Team Providers Name Role Phone Hanane Pollock NP Primary Care Provider Encounter Details Date Type Department Care Team Description 03/19/2013 Orders Only [facility] Infectious Chelle Franz MD Disease - [place] [address] [place] [address] Social History Tobacco Use Types [...] Associated Comments Diagnosis HIV 1 RNA Routine 02/26/2013 12:43 Results for this QUANTITATION EDT procedure are i n the results section. documented in this encounter Results (ABNORMAL) HIV 1 RNA QUANTITATION (02/26/2013 12:43 EDT) HIV1 RNA, 178Comment: Please Undetected [facility] External see scanned report copies/mL [facility] in [facility] for further HOSPITAL LAB interpretation Specimen Blood specimen (specimen) Performing Organization Address City/State/ZIP Code Phon e Number [facility] documented in this encounter Visit Diagnoses Not on filedocumented in this encounter Care Teams Bottle Machine Operator Relationship Specialty Start Date End Date Hanane Pollock, CUSTOM TAILOR PCP - General 01/30/09 02/23/19 [facility] [address] [place] [address] documented as of this encounter
--- OUTSIDE RECORDS SUMMARY | 2022-05-02 11:05 | XMS_ITS | Encounter Summary ---
:1970 Author Organization [facility] Address [address] [place] [address] Care Team Providers Name Role Phone Hanane Pollock NP Primary Care Provider Reason for Visit Reason Comments Follow-up Encounter Details Date Type Department Care Team Description 12/14/2014 Office Visit [facility] uJli Franz Human im munodeficiency virus (HIV) disease (Primary Dx); Infectious Disease - BMD Encount er for long-term (current) use of other medications [address] [id number] Social History Tobacco Use Types Packs/Day Years Used Date Current Every Day Smoker Cigarettes 1 Alcohol Use Standard Drinks/Week Comments No .[id number] (1 standard drink = 0.6 oz pure [...] Sign Reading Time Taken Comments Blood Pressure 140/88 12/14/2014 1014 EDT Pulse 76 12/14/2014 1014 EDT Temperature 36.5 ??C (97.7 ??F) 12/14/2014 1014 EDT Respiratory Rate - - Oxygen Saturation - - Inhaled Oxygen Concentration - - Weight 80 kg (176 lb 5.9 oz) 12/14/2014 1014 EDT Height - - Body Mass Index 26.05 05/23/2011 0832 EST documented in this encounter Ordered Prescriptions Prescription Sig Dispensed Refills Start Date End Date varenicline (CHANTIX ZULMA) Take one 0.5mg 53 Tab 0 201406/30/2015 0.5 mg (11)- 1 mg (42) tablet once daily x tablet 3 days then take one 0.5mg tablet twice daily x 4 days then take one 1mg tablet twice daily documented in this encounter Progress Notes Beena Wayne - 12/15/2014 0827 EDT Mailed note,med list, labs to Hanane Pollock. Juli Zaragoza MD - 12/14/2014 0950 EDT [facility] FOLLOWUP NOTE DOS 07/20/2014 Last seen: 03/30/2014 SUBJECTIVE: Guanakito presents for reevaluation of his HIV disease and his chronic hepatitis B and C. Since he was last seen he has been feeling fairly well. No acute illnesses. Had syncope last pm pm while on the toilet - sounds vasovagal - hit his head and broke a tooth Still complains of sleep disturbance: Goes to sleep between 8 - 10 pm but awakens ~ 2 am and is up for a couple of hours before he can go back to sleep - then sleeps until about 5 am. Sometimes he doesnot go back to sleep at all. He still takes a 1 - 4 hr nap every day. Energy slightly better Is doing some work on occasion Does not think that he is depressed His appetite has been good. No acute complaints today Allergies reviewed and updated in [facility] MEDICATIONS: reviewed and updated in [facility] Denies missing doses Viread 300 mg once a day. Ritonavir 100 mg once a day. Epivir 300 mg once a day. Atazanavir 300 mg once a day. Isentress 400 mg twice daily. Acetaminophen prn - infrequent PAST MEDICAL HISTORY: Nothing to add SOCIAL HISTORY: Smoking 1 - 1 1/2 pack every day ETOH 2 beers a month + MJ Lives with his partner whop is also HIV + They have 32 chickens and 4 roosters, 1 cat and 2 dogs at home. They are sexually active very infrequently but not practicing safer sex FAMILY HISTORY: Nothing to add. REVIEW OF SYSTEMS: A 10-point review of systems was performed and was negative No change in vision No VICK No oral lesions, dysphagia or odynophagia He does not complain of SOB with exertion on a regular basis Denies chronic cough No CP No change in bowels No abd pain, N, V No sx No BRBPR No rash No neuromuscular complaints No fever, chills or NS OBJECTIVE: BP 140/88 Pulse 76 Temp(Src) 36.5 ??C (97.7 ??F) Wt 80 kg (176 lb 5.9 oz) Alert and appropriate, NT, NAD, comfortable on RA No scleral icterus, conjunctivae pink. Pupils equal. No oral lesions No cervical or supraclavicular lymphadenopathy. Lungs: No dullness to percussion. No wheezes, rales, rhonchi Cardiac exam reveals a regular rhythm. Abdomen: Bowel sounds are present, soft, nontender, no hepatosplenomegaly or masses appreciated. Extremities: He has no edema. He has chronic changes in his nails which are stable. No acute rash. Patchy alopecia w/o change DIAGNOSTIC DATA: no labs done in preparation for this visit Last labs 07/2014 CBC: WBC 12.58 Hct 48 Plts 187K Chemistries significant for: creatinine 1.0 PO4 3.3 glc 92 Bili 1.19 Alk phos 90 AST/ALT 22/63 Lytes wnl HIV PCR detected but < 20 copies ASSESSMENT AND PLAN: 1. 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 He has done well on his present antiretroviral therapy. I think he has good adherence. His HIV PCR on his last labs was detectable but < 20copies. He has tolerated the meds well. I had been concerned that his Cr had gone up a bit but it appeared to be holding. His phosphorus has been holding steady. As his present medications are not onlytreating his HIV but are also treating his chronic hepatitis B I think that we will need to try to continue him on his tenofovir. We will need to watch his creatinine closely. He is due for blood work and he will go to the lab today. Await results of blood work from today. If stable would plan to continue his present HAART and have him FU with me in ~ 6 months. 2. Tobacco use - He is actually [...] complications such as lung and bladder cancer. Will put in for a CHantix started pack 3. Chronic hepatitis B and hepatitis C. [...] that biopsy. ALT was up slightly on hislast labs. HBV DNA and HCV RNA undetectable on blood work in 03/2014. He clearly could flare his HCV and his HBV could break through the TDF and 3TC. Will need to follow. HBV DNA and HCV RNA to be done with labs today. Avoid hepatotoxins. Limit alcohol. RUQ US 04/2014 was normal. Will plan for repeat abd US. 4. Health maintenance. Lipid panel 11/2013 so due for repeat lipid panel with labs today. Hep A antibody neg so would reimmunize with HAV vaccine . Tdap was given in 09/2011. Quantiferon neg. Will updatepneumonia vaccine with Prevnar at future visit. Will repeat syphilis serology with labs today but they have been in a monogamous relationship for many years. 5 Lung nodule - he underwent biopsy of concerning lung nodule 05/2011 - path revealed AFB but culture was negative. He remains asymptomatic. Last CXR was stable. If any change may need repeat CT of thechest. 6. Syncope - sounds like a vasovagal episode. 7. Sleep disturbance - this is not new. I do not think that a sleeping pill will be effective. He has no problem falling asleep and he sleeps for several hours. If he took something to stay asleep and he was groggy from the meds in the am he would not tolerate that as he is a morning person. I think that his body is conditioned to this routine. I think that he needs to use some caffeine and physical activity to stay awake after dinner and go to bed later. He also needs to limit the time that he napsin the afternoon. Hopefully with these interventions he can break this pattern. If not we can try a sleep aid but that would be a short term solution to try to break the pattern. documented in this encounter Plan of Treatment Not on filedocumented as of this encounter Visit Diagnoses Diagnosis Human immunodeficiency virus (HIV) disea se ([facility]) ([facility]) - Primary Human immunodeficiency virus [HIV] disea se Encounter for long-term (current) use of other medications documented in this encounter Care Teams Petroleum Engineering Professor Relationship Specialty Start Date End Date Hanane Pollock NP PCP - General 01/30/09 02/23/19 [facility] [address] [place] [id number] documented as of this encounter
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
--- OUTSIDE RECORDS SUMMARY | 2022-05-02 11:05 | XMS_ITS | Encounter Summary ---
:1970 Author Organization [facility] Address [address] [place] [address] Care Team Providers Name Role Phone Hanane Pollock NP Primary Care Provider Encounter Details Date Type Department Care Team Description 06/14/2011 Orders Only [facility] Juli Franz, Chron ic active viral hepatitis B ([facility]-HCC); Infectious Disease - MD AIDS (a cquired immune deficiency syndrome) ([facility]) [facility] [place] [address] [place] [address] Social History Tobacco Use Types Packs/Day Years [...] Sig Dispensed Refills Start Date End Date ritonavir 100 mg Tab Take 6 Tabs by 30 Tab 3 06/14/2011 10/02/2011 mouth every 12 hours. lamivudine (EPIVIR) 300 mg Take 1 Tab by mouth 30 Tab 3 06/14/2011 10/02/2011 tablet daily. tenofovir (VIREAD) 300 mg Take 1 Tab by mouth 30 Tab 3 1 08/15/2010 10/02/2011 tablet daily. Raltegravir (ISENTRESS) Take 1 Tab by mouth 60 Tab 3 08/201010/02/2011 400 mg Tab 2 times daily. atazanavir (REYATAZ) 300 Take 1 Cap by mouth 30 Cap 3 10/02/2011 mg capsule daily. buPROPion (WELLBUTRIN SR) Take 1 Tab by mouth 30 Tab 3 1 08/15/2010 06/03/2012 100 mg SR tablet daily. documented in this encounter Plan of Treatment Not on filedocumented as of this encounter Visit Diagnoses Diagnosis Chronic active viral hepatitis B (HCC) Viral hepatitis B without mention of hep atic coma, chronic, without mention of hepatitis delta AIDS (acquired immune deficiency syndrom e) (HCC-CMS) (HCC) Human immunodeficiency virus [HIV] disea se documented in this encounter Discontinued Medications Medication Sig Discontinue Reason Start Date End Date ritonavir (NORVIR) 100 mg Take 100 mg by 06/14/2011 capsule mouth daily. buPROPion (WELLBUTRIN SR) Take 100 mg by Reorder 06/14/2011 100 mg SR tablet mouth daily. atazanavir (REYATAZ) 300 Take 300 mg by Reorder 1 08/15/2010 mg capsule mouth daily. Raltegravir (ISENTRESS) Take 400 mg by Reorder 400 mg Tab mouth 2 times daily. tenofovir (VIREAD) 300 mg Take 300 mg by Reorder 06/14/2011 tablet mouth daily. lamivudine (EPIVIR) 300 Take 300 mg by Reorder mg tablet mouth daily. documented as of this encounter Care Teams Bottom Cementer Relationship Specialty Start Date End Date Hanane Pollock NP PCP - General 01/30/09 02/23/19 [facility] [address] [place] [address] documented as of this encounter
--- OUTSIDE RECORDS SUMMARY | 2022-05-02 11:05 | XMS_ITS | Encounter Summary ---
:1970 Author Organization [facility] Address [address] [place] [address] Care Team Providers Name Role Phone Hanane Pollock NP Primary Care Provider Encounter Details Date Type Department Care Team Description 11/04/2013 Orders Only [facility] Infectious Chelle Franz MD Disease - Main [place] [address] [place] [address] Social History Tobacco Use Types Packs/Day Years Used Date Current Every Day Smoker 1 Alcohol Use Standard Drinks/Week Comments Yes .[id number] (1 standard drink = 0.6 oz pure [...] Priority Date/Time Associated Comments Diagnosis COMPREHENSIVE Routine 11/01/2013 11:56 Results fo r this METABOLIC PANEL EDT procedure ar e in (ONCOLOGY USE ONLY-INC the r esults MG) section. COMPLETE BLOOD COUNT Routine 11/01/2013 11:56 Res ults for this AND DIFFERENTIAL EDT procedure a re in the results section. PHOSPHORUS Routine 11/01/2013 11:56 Results for this EDT procedure are i n the results section. CK Routine 11/01/2013 11:56 Results for this EDT procedure are i n the results section. COMPREHENSIVE Routine 11/01/2013 11:56 Results fo r this METABOLIC PANEL (CMP) EDT proced ure are in the results section. documented in this encounter Results (ABNORMAL) COMPREHENSIVE METABOLIC PANEL (CMP) (11/01/2013 11:56 EDT) GFR, Calculated, >=60.00 >=60.00 [facility] External mL/min/1.73m2 [facility] Glucose, Serum, 89 70 - 100 [facility] External mg/dL [facility] Albumin, External 4.5 3.4 - 5.0 [facility] g/dL [facility] Total Alkaline 85 46 - 116 U/L [facility] Phosphatase, [facility] ALT, External 45 12 - 78 U/L [facility] AST, External 19 15 - 37 U/L [facility] BUN, External 16Comment: 7 - 18 mg/dL [facility] Corrected [facility] reference ranges HOSPITAL LAB 11/04/13 at 1842. Calculated Not given [facility] Calcium, External [facility] Calcium, External 9.1 8.5 - 10.1 [facility] mg/dL [facility] Chloride, External 103 98 - 107 [facility] mmol/L [facility] CO2, External 28.6 21.0 - 32.0 [facility] mmol/L [facility] Creatinine, 1.2 0.8 - 1.3 [facility] External mg/dL [facility] Fasting?, External Unknown [facility] Potassium, 4.3 3.5 - 5.1 [facility] External mmol/L [facility] Sodium, External 140 136 - 145 [facility] mmol/L [facility] Total Protein, 7.4 6.4 - 8.2 [facility] External g/dL [facility] Bilirubin, Total, 1.56 (A)Comment: 0.2 - 1.0 [facility] External See scans in mg/dL [facility] for further HOSPITAL LAB interpretation. Specimen Blood specimen (specimen) Performing Organization Address City/State/ZIP Code Phon e Number [facility] PHOSPHORUS (11/01/2013 11:56 EDT) Pathologist Sig nature Phosphorus, External 3.0 2.5 - 4.9 mg/dL [facility] Specimen Blood specimen (specimen) Performing Organization Address City/State/ZIP Code Phon e Number [facility] (ABNORMAL) HEMAGRAM AND DIFFERENTIAL (11/01/2013 11:56 EDT) WBC, External 8.53 4.4 - 10.8 [facility] RBC, External 4.83 4.50 - 6.00 [facility] Hemoglobin, 16.5 13.5 - 17.5 [facility] g/dL [facility] HCT, External 47.2 40.0 - 50.0 % [facility] MCV, External 97.7 (A) 80 - 95 fL [facility] MCH, External 34.2 (A) 27.0 - 33.0 [facility] MCHC, External 35.0 32.0 - 36.0 % [facility] PLT, External 213 130 - 400 [facility] x1000/uL [facility] RDW-CV, External 13.2 11.8 - 14.1 % [facility] Neutrophils, 52.6 40 - 74 % [facility] Lymphocytes, 35.1 19 - 44 % [facility] Monocytes, 8.2 3.0 - 10.0 % [facility] Eosinophils, 2.8 1 - 7.0 % [facility] Basophils, 1.1 0.0 - 2.0 % [facility] ABS Neutrophils, 4.49 1.2 - 6.7 [facility] ABS Lymphs, 2.99 1.2 - 3.4 [facility] ABS Monocytes, 0.70 0.11 - 0.7 [facility] ABS Eosinophils, 0.24 0 - 0.7 [facility] ABS Basophils, 0.09Comment: 0.0 - 0.2 [facility] See scans in [facility] PRISM for LAB further interpretation. Specimen Blood specimen (specimen) Performing Organization Address City/State/ZIP Code Phon e Number [facility] CK (11/01/2013 11:56 EDT) Pathologist Sig nature CK, External 132 39 - 308 U/L [facility] Specimen Blood specimen (specimen) Performing Organization Address City/State/ZIP Code Phon e Number [facility] COMPREHENSIVE METABOLIC PANEL (ONCOLOGY USE ONLY-INC MG: DRAW GREEN TOP) (11/01/2013 11:56 EDT) Calcium, External Comment: Ordered [facility] in error. [facility] CO2, External Comment: Ordered [facility] in error. [facility] AST, External Comment: Ordered [facility] in error. [facility] ALT, External Comment: Ordered [facility] in error. [facility] Bilirubin, Total, Comment: Ordered [facility] External in error. [facility] Creatinine, Comment: Ordered [facility] External in error. [facility] Calculated Calcium, Comment: Ordered [facility] External in error. [facility] Anion Gap, External Comment: Ordered [facility] in error. [facility] Total Protein, Comment: Ordered [facility] External in error. [facility] Potassium, External Comment: Ordered [facility] in error. [facility] Total Alkaline Comment: Ordered [facility] Phosphatase, in error. [facility] External Albumin, External Comment: Ordered [facility] in error. [facility] BUN, External Comment: Ordered [facility] in error. [facility] GFR, Calculated, Comment: Ordered [facility] External in error. [facility] Fasting?, External Comment: Ordered [facility] in error. [facility] Chloride, External Comment: Ordered [facility] in error. [facility] Glucose, Serum, Comment: Ordered [facility] External in error. [facility] Sodium, External Comment: Ordered [facility] in error. [facility] Magnesium, External Comment: Ordered [facility] in error. [facility] Specimen Blood specimen (specimen) Performing Organization Address City/State/ZIP Code Phon e Number [facility] documented in this encounter Visit Diagnoses Not on filedocumented in this encounter Care Teams Life Sciences Manager Relationship Specialty Start Date End Date Hanane Pollock NP PCP - General 01/30/09 02/23/19 [facility] [address] [place] [address] documented as of this encounter
--- OUTSIDE RECORDS SUMMARY | 2022-05-02 11:05 | XMS_ITS | Encounter Summary ---
:1970 Author Organization [facility] Address [address] [place] [address] Care Team Providers Name Role Phone Hanane Pollock [employer]LE SCHO[employer] COACH Primary Care Provider Encounter Details Date Type Department Care Team Description 05/18/2010 Orders Only [facility] MahsaJuli church, Otiti s externa, chronic; Infectious Disease - MD AIDS (a cquired immune deficiency syndrome) ([facility]) Main [place] [address] [place] [phone] Social History Tobacco Use Types Packs/Day Years Used Date Never Assessed Sex Assigned at Date Recorded Not on file documented as of this encounter Ordered Prescriptions Prescription Sig Dispensed Refills Start Date End Date [id number] Place 3 Drops in 1 Bottle 0 11/200905/25/2010 rtisone (CORTISPORIN) otic ear(s) 4 times solutionIndications: daily for 7 days. Otitis externa, chronic documented in this encounter Plan of Treatment Not on filedocumented as of this encounter Visit Diagnoses Diagnosis Otitis externa, chronic Other chronic otitis externa AIDS (acquired immune deficiency syndrom e) ([facility]) ([facility]) Human immunodeficiency virus [HIV] disea se documented in this encounter Care Teams University Counselor Relationship Specialty Start Date End Date Hanane Pollock, SOM PCP - General 01/30/09 02/23/19 [facility] [address] [place], [place] [address] documented as of this encounter
--- OUTSIDE RECORDS SUMMARY | 2022-05-02 11:05 | XMS_ITS | Encounter Summary ---
:1970 Author Organization [facility] Address [address] [place] [address] Care Team Providers Name Role Phone Hanane Pollock NP Primary Care Provider Encounter Details Date Type Department Care Team Description 12/21/2014 Orders Only [facility] Infectious Chelle Franz MD Disease - [place] [address] [place] [address] Social History Tobacco Use Types Packs/Day Years Used Date Current Every Day Smoker Cigarettes 1 Alcohol Use Standard Drinks/Week Comments No .[id number] (1 standard drink = 0.6 oz pure [...] Associated Comments Diagnosis HIV 1 RNA Routine 12/14/2014 11:44 Results for this QUANTITATION EDT procedure are i n the results section. documented in this encounter Results HIV 1 RNA QUANTITATION (12/14/2014 11:44 EDT) HIV1 RNA, UndetectedComment Undetected [facility] External : Please see the copies/mL [facility] scanned report in HOSPITAL LAB PRISM for further interpretation. Test performed by [facility]. Specimen Blood specimen (specimen) Performing Organization Address City/State/ZIP Code Phon e Number [facility] documented in this encounter Visit Diagnoses Not on filedocumented in this encounter Care Teams Conductor/Engineer Relationship Specialty Start Date End Date Hanane Pollock, SOM PCP - General 01/30/09 02/23/19 [facility] [address] [place] [address] documented as of this encounter
--- OUTSIDE RECORDS SUMMARY | 2022-05-02 11:05 | XMS_ITS | Encounter Summary ---
:1970 Author Organization [facility] Address [address] [place] [address] Care Team Providers Name Role Phone Hanane Pollock NP Primary Care Provider Encounter Details Date Type Department Care Team Description 08/01/2014 Orders Only [facility] Infectious Chelle Franz MD Disease - [place] [address] [place] [address] Social History Tobacco Use Types Packs/Day Years Used Date Current Every Day Smoker Cigarettes 1 Alcohol Use Standard Drinks/Week Comments No .[id number] (1 standard drink = 0.6 oz pure [...] Associated Comments Diagnosis HIV 1 RNA Routine 07/18/2014 9:41 Results for this QUANTITATION EST procedure are i n the results section. documented in this encounter Results HIV 1 RNA QUANTITATION (07/18/2014 9:41 EST) HIV1 RNA, Detected <20 Undetected [facility] External copies/mLComment: copies/mL [facility] Please see [facility] LAB media in PRISM for furtehr information.Test Performed by: [facility] Specimen Blood specimen (specimen) Performing Organization Address City/State/ZIP Code Phon e Number [facility] documented in this encounter Visit Diagnoses Not on filedocumented in this encounter Care Teams Rail Manager Relationship Specialty Start Date End Date Hanane Pollock, SOM PCP - General 01/30/09 02/23/19 [facility] [address] [place] [id number] documented as of this encounter
--- OUTSIDE RECORDS SUMMARY | 2022-05-02 11:05 | XMS_ITS | Encounter Summary ---
:1970 Author Organization [facility] Address [address] [place] [address] Care Team Providers Name Role Phone Hanane Pollock NP Primary Care Provider Reason for Visit Reason Comments Follow-up Encounter Details Date Type Department Care Team Description 07/20/2014 Office Visit [facility] Juli Franz, AIDS (acquired immune deficiency syndrome) ([facility]) (Primary Dx); Infectious Disease - MD Encount er for long-term (current) use of other medications; [facility] Chronic hepatitis C without mention of hepatic coma; [address] Tobacco dependence syndrome; [place], [place] [address] Chronic active type B viral hepatitis ([facility]); [phone] Leukocytosis Social History Tobacco Use Types Packs/Day Years Used Date Current Every Day Smoker Cigarettes 1 Tobacco Cessation: Ready to Quit: No; Co unseling Given: Yes Alcohol Use Standard Drinks/Week Comments No .[id number] (1 standard drink = 0.6 oz pure [...] Sign Reading Time Taken Comments Blood Pressure 120/90 07/20/2014 1030 EST Pulse - - Temperature 36.3 ??C (97.4 ??F) 07/20/2014 1030 EST Respiratory Rate - - Oxygen Saturation - - Inhaled Oxygen Concentration - - Weight 82.5 kg (181 lb 14.1 oz) 07/20/2014 1030 EST Height - - Body Mass Index 26.86 05/23/2011 0832 EST documented in this encounter Ordered Prescriptions Prescription Sig Dispensed Refills Start Date End Date tenofovir (VIREAD) 300 mg Take 1 Tab by mouth 30 Tab 3 0 07/20/2014 05/31/2015 tabletIndications: AIDS daily. (acquired immune deficiency syndrome) ([facility]) ([facility]), Encounter for long-term (current) use of other medications ritonavir (NORVIR) 100 mg Take 1 Tab by mouth 30 Tab 3 0 07/20/2014 05/31/2015 tabletIndications: AIDS every 24 hours. (acquired immune deficiency syndrome) ([facility]) ([facility]), Encounter for long-term (current) use of other medications Raltegravir (ISENTRESS) Take 1 Tab by mouth 60 Tab 3 01/201505/31/2015 400 mg tabletIndications: 2 times daily. AIDS (acquired immune deficiency syndrome) ([facility]) ([facility]), Encounter for long-term (current) use of other medications lamiVUDine (EPIVIR) 300 mg Take 1 Tab by mouth 30 Tab 3 07/20/2014 05/31/2015 tabletIndications: AIDS daily. (acquired immune deficiency syndrome) ([facility]) ([facility]), Encounter for long-term (current) use of other medications atazanavir (REYATAZ) 300 Take 1 Cap by mouth 30 Cap 3 05/31/2015 mg capsuleIndications: daily. AIDS (acquired immune deficiency syndrome) ([facility]) ([facility]), Encounter for long-term (current) use of other medications documented in this encounter Progress Notes Lavonne Ng - 07/21/2014 1019 EST Mailed office note, med list and lab orders to Hanane Pollock. Juli Richards MD - 07/20/2014 1041 EST [facility] FOLLOWUP NOTE DOS 07/20/2014 Last seen: 03/30/2014 SUBJECTIVE: [place] presents for reevaluation of his HIV disease and his chronic hepatitis B and C. Since he was last seen he has been feeling fairly well. No acute illnesses. He has been to the dentist for a regular cleaning but no other doctor visits Still complains of sleep disturbance: Goes to sleep between 8 and 10 pm but awakens ~ 2 am and is upfor about an hour before he can go back to sleep - then sleeps until about 5 am. He still takes a 2 - 3 hr nap every day. If he does not take a nap he does not sleep any better at night His appetite has been good. Occasional sweats at night or with nap No acute complaints today Allergies reviewed and updated in PRISM MEDICATIONS: reviewed and updated in PRISM (missed 2 pm doses - fell asleep) Viread 300 mg once a day. Ritonavir 100 mg once a day. Epivir 300 mg once a day. Atazanavir 300 mg once a day. Isentress 400 mg twice daily. Acetaminophen ?dose once daily prn for head pain PAST MEDICAL HISTORY: Nothing to add SOCIAL HISTORY: Smoking 1 pack every day ETOH none + MJ Lives with his partner whop is also HIV + Not working outside of the home They have 28 chickens, 1 cat and 2 dogs at home. They are sexually active very infrequently but report safer sex FAMILY HISTORY: Nothing to add. REVIEW OF SYSTEMS: A 10-point review of systems was performed and was negative No change in vision Transient head pain over past week No change in vision No oral lesions, dysphagia or odynophagia He does not complain of SOB with exertion Denies chronic cough No CP No change in bowels No abd pain, N, V No sx No BRBPR No rash OBJECTIVE: BP 120/90 Temp(Src) 36.3 ??C (97.4 ??F) Wt 82.5 kg (181 lb 14.1 oz) BMI 26.85 kg/m2 Alert and appropriate, NT, NAD, comfortable [...] rash. Patchy alopecia w/o change DIAGNOSTIC DATA: 07/18/14 CBC: WBC 12.58 Hct 48 Plts 187K Chemistries significant for: creatinine 1.0 PO4 3.3 glc 92 Bili 1.19 Alk phos 90 AST/ALT / Lytes wnl HIV PCR pending ASSESSMENT AND PLAN: 1. 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 He has done well on his present antiretroviral therapy. I think he has good adherence. His HIV PCR from most recent blood work is pending. He has tolerated the meds well. I have been concerned that his Cr has gone up a bit but it appears to beholding. His phosphorus is holding steady. As his present medications are not only treating his HIV but are also treating his chronic hepatitis B I think that we will need to try to continue him on histenofovir. We will need to watch his creatinine closely. Would continue his present regimen. Await result of HIV PCR. If his HIV PCR is undetectable I would have him have repeat blood work and a followup with myself in the comprehensive care clinic in 6 months. 2. Tobacco use - I think that he has COPD. I stressed the need for him to quit smoking to prevent progression of his lung disease and to decrease his risk for other complications such as lung and bladder cancer. We talked about nicotine replacement. Encouraged him to set a quit date. 3. Elevated WBC - no recent infections. Minimal elevation with normal differential so would follow for now. 4. Chronic hepatitis B [...] of his fibrosis based on that biopsy. I am concerned that his ALT is up slightly on his recent labs. HBV DNA andHCV RNA undetectable on blood work in 03/2014. He clearly could flare his HCV and his HBV could breakthrough the TDF and 3TC. Will need to follow. Would repeat HBV DNA and HCV RNA with next labs. Avoidhepatotoxins. Limit alcohol. RUQ US 04/2014 was normal. 5. Health maintenance. Lipid panel 11/2013 significant for low HDL. Hep A antibody neg so would reimmunize with HAV vaccine - need to get this for his next appointment. Tdap was given in 09/2011. Influenza vaccine 03/2014. Quantiferon neg. Will update pneumonia vaccine with Prevnar at future visit. Will repeat syphilis serology but they have been laquita monogamous relationship for many years. 6. Lung nodule - he underwent biopsy of concerning lung nodule 05/2011 - path revealed AFB but culture was negative. He remains asymptomatic. Last CXR was stable. If any change may need repeat CT of the chest. documented in this encounter Plan of Treatment Not on filedocumented as of this encounter Visit Diagnoses Diagnosis AIDS (acquired immune deficiency syndrom e) ([facility]) ([facility]) - Primary Human immunodeficiency virus [HIV] disea se Encounter for long-term (current) use of other medications Chronic hepatitis C without mention of h epatic coma Tobacco dependence syndrome Tobacco use disorder Chronic active type B viral hepatitis ([facility]) Viral hepatitis B without mention of hep atic coma, chronic, without mention of hepatitis delta Leukocytosis Leukocytosis, unspecified documented in this encounter Discontinued Medications Medication Sig Discontinue Reason Start Date End Date atazanavir (REYATAZ) 300 Take 1 Cap by mouth Reorder 4 07/20/2014 mg capsuleIndications: daily. AIDS (acquired immune deficiency syndrome) ([facility]) ([facility]), Encounter for long-term (current) use of other medications lamiVUDine (EPIVIR) 300 Take 1 Tab by mouth Reorder 03/30/2014 07/20/2014 mg tabletIndications: daily. AIDS (acquired immune deficiency syndrome) ([facility]) ([facility]), Encounter for long-term (current) use of other medications Raltegravir (ISENTRESS) Take 1 Tab by mouth Reorder 03/30/2014 07/20/2014 400 mg tabletIndications: 2 times daily. AIDS (acquired immune deficiency syndrome) ([facility]) ([facility]), Encounter for long-term (current) use of other medications ritonavir (NORVIR) 100 mg Take 1 Tab by mouth Reorder 03/30/20 14 07/20/2014 tabletIndications: AIDS every 24 hours. (acquired immune deficiency syndrome) ([facility]) ([facility]), Encounter for long-term (current) use of other medications tenofovir (VIREAD) 300 mg Take 1 Tab by mouth Reorder 03/30/20 14 07/20/2014 tabletIndications: AIDS daily. (acquired immune deficiency syndrome) ([facility]) ([facility]), Encounter for long-term (current) use of other medications documented as of this encounter Care Teams Induction Heating Equipment Setter Relationship Specialty Start Date End Date Hanane Pollock NP PCP - General 01/30/09 02/23/19 [facility] [address] [place] [id number] documented as of this encounter
--- OUTSIDE RECORDS SUMMARY | 2022-05-02 11:05 | XMS_ITS | Encounter Summary ---
:1970 Author Organization [facility] Address [address] [place] [address] Care Team Providers Name Role Phone Hanane Pollock GEM STONE CUTTER Primary Care Provider Encounter Details Date Type Department Care Team Description 12/23/2014 Orders Only [facility] Infectious Chelle Franz MD Disease - [place] [address] [place] [address] Social History Tobacco Use Types Packs/Day Years Used Date Current Every Day Smoker Cigarettes 1 Alcohol Use Standard Drinks/Week Comments No .[id number] (1 standard drink = 0.6 oz pure [...] on filedocumented in this encounter Care Teams Electrogalvanizing Machine Operator Relationship Specialty Start Date End Date Hanane Pollock, SOM PCP - General 01/30/09 02/23/19 [facility] [address] [place], [place] [id number] documented as of this encounter
--- OUTSIDE RECORDS SUMMARY | 2022-05-02 11:05 | XMS_ITS | Encounter Summary ---
:1970 Author Organization [facility] Address [address] [place] [address] Care Team Providers Name Role Phone Hanane Pollock NP Primary Care Provider Reason for Visit Reason Onset Date Comments Other 05/18/2010 medication Encounter Details Date Type Department Care Team Description 05/18/2010 Telephone [facility] Juli Franz MD Ot her (medication) Infectious Disease - [facility] [address] [place], [place] [id number] Social History Tobacco Use Types Packs/Day Years Used Date Never Assessed Sex Assigned at Date Recorded Not on file documented as of this encounter Miscellaneous Notes Telephone Encounter - Jesika Srinivasan RN - 05/18/[address] Franz will e-scribe the med for him. Pt has been notified. elephone Encounter - Lavonne Ng - 05/18/2010 1327 EDT Pt stated script for ointment for his ear was suppose to be called into [facility] [place] ago. Stated they do not have script as of yet. Their phone is [phone]. Pt's phone is [phone]. documented in this encounter Plan of Treatment Not on filedocumented as of this encounter Visit Diagnoses Not on filedocumented in this encounter Care Teams Home Supervisor Relationship Specialty Start Date End Date Hanane Pollock, INTERNAL AFFAIRS COMMANDER PCP - General 01/30/09 02/23/19 [facility] [address] [place] [address] documented as of this encounter
--- OUTSIDE RECORDS SUMMARY | 2022-05-02 11:05 | XMS_ITS | Encounter Summary ---
:1970 Author Organization [facility] Address [address] [place] [address] Care Team Providers Name Role Phone Hanane Pollock NP Primary Care Provider Reason for Visit Reason Comments HIV Positive/AIDS Encounter Details Date Type Department Care Team Description 10/02/2011 Office Visit [facility] Juli Franz, AIDS (acquired immune deficiency syndrome) ([facility]-HCC); Infectious Disease - Chronic active viral hepatitis B ([facility]-HCC); [facility] Chronic hepatitis C without mention of hepatic coma; [address] Abdominal pain; [place], [place] [address] Muscle pain; [phone] Lung nodule Social History Tobacco Use Types Packs/Day Years [...] Reading Time Taken Comments Blood Pressure 140/100 10/02/2011 1034 EDT Pulse - - Temperature 36.3 ??C (97.3 ??F) 10/02/2011 1034 EDT Respiratory Rate - - Oxygen Saturation - - Inhaled Oxygen Concentration - - Weight 82.8 kg (182 lb 8.7 oz) 10/02/2011 1034 EDT Height - - Body Mass Index 26.96 05/23/2011 0832 EST documented in this encounter Ordered Prescriptions Prescription Sig Dispensed Refills Start Date End Date atazanavir (REYATAZ) 300 Take 1 Cap by mouth 30 Cap 3 02/12/2012 mg capsule daily. ritonavir (NORVIR) 100 mg Take 1 Tab by mouth 30 Tab 3 0 10/02/2011 02/12/2012 tablet every 24 hours. lamivudine (EPIVIR) 300 mg Take 1 Tab by mouth 30 Tab 3 10/02/2011 02/12/2012 tablet daily. tenofovir (VIREAD) 300 mg Take 1 Tab by mouth 30 Tab 3 0 10/02/2011 02/12/2012 tablet daily. Raltegravir (ISENTRESS) Take 1 Tab by mouth 60 Tab 3 02/12/2012 400 mg Tab 2 times daily. documented in this encounter Progress Notes Beena Wayne - 10/03/2011 0856 EDT Faxed note and labs to Phill at [facility] 10/02 Juli Zaragoza MD - 10/02/2011 1040 EDT [facility] FOLLOWUP NOTE DOS:10/02/2011 Last seen: 05/08/2011 SUBJECTIVE: Guanakito presents for reevaluation of his HIV disease and his chronic hepatitis. Since he was last seen he has had a couple of mild URIs. He did see Hanane Rossi recently at [place] because he feels that his abdominal girth is increased especially in his upper abdomen and he has had intermittent crampy type sensation in the LUQ. It can be a pressure in LUQ - waxes and wanes. No consistent triggers. Like a muscle cramp. Only lasts a minute. No associated sx. Present for a couple of weeks. Gained weight. No LE edema, but some swelling over lower back. His other complaint is that He feels that his muscles fatigue quickly and become painful when he is doing physical activity. He does not really describe weakness. His energy level is good. Appetite good and he has gained weight. No fever, chills, NS. Allergies reviewed and updated inPRISM MEDICATIONS: reviewed and updated inPRISM Wellbutrin 100 mg once a day. Viread 300 mg once a day. Ritonavir 100 mg once a day. Epivir 300 mg once a day. Atazanavir 300 mg once a day. Isentress 400 mg twice daily. PAST MEDICAL HISTORY: Nothing to add. SOCIAL HISTORY: Quit smoking 07/2011 - did use Chantix for first few weeks Lives with his partner in their new house They have chickens, 1 cat and 2 dogs at home. Has used alcohol on a couple of occasions since last seen. FAMILY HISTORY: Nothing to add. REVIEW OF SYSTEMS: A 10-point review of systems really only significant for the findings mentioned above. Occ VICK Had transient dysuria recently which resolved spontaneously OBJECTIVE: BP 140/100 Temp 36.3 ??C (97.3 ??F) Wt 82.8 kg (182 lb 8.7 oz) Mild scleral icterus, conjunctivae pink. Pupils equal. He has no oral lesions. Fair dentition. No cervical or supraclavicular lymphadenopathy. Lungs: clear. Cardiac exam reveals a regular rhythm. Abdomen: Bowel sounds are present, soft, nontender, no hepatosplenomegaly or masses appreciated. Extremities: He has no edema. He has chronic changes in his nails which are stable. No joint abnormalities. Reflexes 2+. No edema of lower back. DIAGNOSTIC DATA: WBC9.21, hemoglobin 16.94platelet count 224,000. Differential really unremarkable. Chemistries: His creatinine was 1.3. His ALT was elevated at 68 with an AST of 22. CD4 count was 944 and 27% HIV PCR was undetectable. CK was not done ASSESSMENT AND PLAN: 1. HIV positive. Guanakito has AIDS by definition. He has had cryptococcal meningitis. He has done well on his present antiretroviral therapy. I think he has good adherence. He has tolerated the meds well.I am concerned that his Cr is creeping up a bit and I think that we need to watch that closely. I amalso concerned with his muscle sx. His last CK was wnl but unfortunately was not repeated with recent labs. We will send him to the lab for a CK today. His viral load is undetectable. His CD4 count is stable. We plan to continue his present regimen and would have him have repeat blood work and a followup with myself in the comprehensive care clinic in about 3 months. 2. Tobacco use - quit smoking 07/2011 ! 3. Depression. Seems to be controlled with [...] could this represent breakthrough of his HBV. He was to have a HBV DNA with these labs but was not done. Will send him to the lab today for HBV RCR. If HBV viral load up may need to do resistance testing. If HBV DNA neg will obtain HCV PCR. I cannot appreciate any liver enlargement or mass on exam but heis scheduled to hav an abdominal US soon. Await result. 5. Health maintenance. He was due for repeat fasting lipid panel but was not done. He is fasting so will send him to the lab for lipid panel today. He received a Tdap today. wW have not documented a positive antibody to hep A despite his repeated immunization. We will check his hep A antibody with hislabs today. 6. 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 Will need to follow up imaging later this spring or early summer. 7. Elevated BP - he had his BP done after he received his immunization. He saw Hanane last week at [place] and his BP was nl. He has not had HTN. Will follow BP for now. documented in this encounter Plan of Treatment Not on filedocumented as of this encounter Visit Diagnoses Diagnosis AIDS (acquired immune deficiency syndrom e) (HCC-CMS) (HCC) Human immunodeficiency virus [HIV] disea se Chronic active viral hepatitis B (HCC) Viral hepatitis B without mention of hep atic coma, chronic, without mention of hepatitis delta Chronic hepatitis C without mention of h epatic coma Abdominal pain Abdominal pain, unspecified site Muscle pain Mylagia and myositis, unspecified Lung nodule Other diseases of lung, not elsewhere cl assified documented in this encounter Discontinued Medications Medication Sig Discontinue Reason Start Date End Date ritonavir 100 mg Tab Take 6 Tabs by Duplicate Therapy 06/14/2011 10/02/2011 mouth every 12 hours. Raltegravir (ISENTRESS) Take 1 Tab by mouth Reorder 06/14/2011 10/02/2011 400 mg Tab 2 times daily. tenofovir (VIREAD) 300 mg Take 1 Tab by mouth Reorder 06/14/20 11 10/02/2011 tablet daily. lamivudine (EPIVIR) 300 Take 1 Tab by mouth Reorder 06/14/2011 10/02/2011 mg tablet daily. ritonavir (NORVIR) 100 mg Take 100 mg by Reorder 10/02/2011 tablet mouth every 24 hours. atazanavir (REYATAZ) 300 Take 1 Cap by mouth Reorder 1 10/02/2011 mg capsule daily. documented as of this encounter Historical Medications This list may reflect changes made after this encounter. Medication Sig Dispensed Refills Start Date End Date GLUC HOWARD/CHONDRO HOWARD A/VIT Take 2 Tabs by 0 06/28/2015 C/MN (GLUCOSAMINE mouth daily. CHONDROITIN MAXSTR ORAL) Multivitamins with Minerals Take 1 Tab by 0 07/20/2015 Tab mouth daily. ritonavir (NORVIR) 100 mg Take 100 mg by 0 10/02/2011 tablet mouth every 24 hours. added in this encounter Care Teams Bung Driver Relationship Specialty Start Date End Date Hanane Pollock NP PCP - General 01/30/09 02/23/19 [facility] [address] [place] [id number] documented as of this encounter
--- OUTSIDE RECORDS SUMMARY | 2022-05-02 11:05 | XMS_ITS | Encounter Summary ---
:1970 Author Organization [facility] Address [address] [place] [address] Care Team Providers Name Role Phone Hanane Pollock NP Primary Care Provider Encounter Details Date Type Department Care Team Description 06/26/2012 Orders Only [facility] OseiJuli, AIDS (acquired immune Infectious Disease - MD deficie ncy syndrome) [place] ([place]x) [address] [place], [place] [id number] Social History Tobacco Use Types Packs/Day Years [...] 1 Cap by mouth 30 Cap 3 10/28/2012 mg capsuleIndications: daily. AIDS (acquired immune deficiency syndrome) ([facility]) ([facility]) ritonavir (NORVIR) 100 mg Take 1 Tab by mouth 30 Tab 3 1 08/27/2011 10/28/2012 tabletIndications: AIDS every 24 hours. (acquired immune deficiency syndrome) ([facility]) ([facility]) lamivudine (EPIVIR) 300 mg Take 1 Tab by mouth 30 Tab 3 06/26/2012 10/28/2012 tabletIndications: AIDS daily. (acquired immune deficiency syndrome) ([facility]) ([facility]) tenofovir (VIREAD) 300 mg Take 1 Tab by mouth 30 Tab 3 1 08/27/2011 10/28/2012 tabletIndications: AIDS daily. (acquired immune deficiency syndrome) ([facility]) ([facility]) Raltegravir (ISENTRESS) Take 1 Tab by mouth 60 Tab 3 10/28/2012 400 mg TabIndications: 2 times daily. AIDS (acquired immune deficiency syndrome) ([facility]) ([facility]) documented in this encounter Plan of Treatment Not on filedocumented as of this encounter Visit Diagnoses Diagnosis AIDS (acquired immune deficiency syndrom e) ([facility]) ([facility]) - Primary Human immunodeficiency virus [HIV] disea se documented in this encounter Discontinued Medications Medication Sig Discontinue Reason Start Date End Date Raltegravir (ISENTRESS) Take 1 Tab by mouth Reorder 02/12/2012 06/26/2012 400 mg TabIndications: 2 times daily. AIDS (acquired immune deficiency syndrome) ([facility]) ([facility]) tenofovir (VIREAD) 300 mg Take 1 Tab by mouth Reorder 02/12/20 12 06/26/2012 tabletIndications: AIDS daily. (acquired immune deficiency syndrome) ([facility]) ([facility]) lamivudine (EPIVIR) 300 Take 1 Tab by mouth Reorder 02/12/2012 06/26/2012 mg tabletIndications: daily. AIDS (acquired immune deficiency syndrome) ([facility]) ([facility]) ritonavir (NORVIR) 100 mg Take 1 Tab by mouth Reorder 02/12/20 12 06/26/2012 tabletIndications: AIDS every 24 hours. (acquired immune deficiency syndrome) ([facility]) ([facility]) atazanavir (REYATAZ) 300 Take 1 Cap by mouth Reorder 2 06/26/2012 mg capsuleIndications: daily. AIDS (acquired immune deficiency syndrome) ([facility]) ([facility]) documented as of this encounter Care Teams Tree Chipper Relationship Specialty Start Date End Date Hanane Pollock NP PCP - General 01/30/09 02/23/19 [facility] [address] [place] [id number] documented as of this encounter
--- OUTSIDE RECORDS SUMMARY | 2022-05-02 11:05 | XMS_ITS | Encounter Summary ---
:1970 Author Organization [facility] Address [address] [place] [address] Care Team Providers Name Role Phone Hanane Pollock NP Primary Care Provider Reason for Visit Reason Comments Follow-up Encounter Details Date Type Department Care Team Description 07/28/2013 Office Visit [facility] Juli Franz Human im munodeficiency virus (HIV) disease (Primary Dx); Infectious Disease - B, Encount er for long-term (current) use of other medications; [facility] Tobacco use disorder; [address] Chronic active type B viral hepatitis (CMS-HCC); [place], [place] Chronic hep atitis C without mention of hepatic coma [id number] Social History Tobacco Use Types Packs/Day Years Used Date Current Every Day Smoker 1 Tobacco Cessation: Ready to Quit: Yes; C ounseling Given: Yes Alcohol Use Standard Drinks/Week Comments Yes .[id number] (1 standard drink = 0.6 oz pure [...] Sign Reading Time Taken Comments Blood Pressure 110/80 07/28/2013 0941 EST Pulse - - Temperature - - Respiratory Rate - - Oxygen Saturation - - Inhaled Oxygen Concentration - - Weight 82 kg (180 lb 12.4 oz) 07/28/2013 0941 EST Height - - Body Mass Index 26.7 05/23/2011 0832 EST documented in this encounter Progress Notes Lavonne Ng - 07/29/2013 0823 EST Mailed lab orders to Hanane Pollock. Juli Richards MD - 07/28/2013 0946 EST [facility] FOLLOWUP NOTE DOS 07/28/2013 Last seen: 03/03/2013 SUBJECTIVE: Guanakito presents for reevaluation of his HIV disease and his chronic hepatitis B and C. Since he was last seen he has been feeling fairly well. No illnesses since last seen. His appetite has been good. His energy level is not as good. He finds that he sleeps well at night but he still naps during the day. He does not think that he is depressed. No acute complaints today Allergies reviewed and [...] dogs at home. He is not working They are sexually active very infrequently but report safer sex FAMILY HISTORY: Nothing to add. REVIEW OF SYSTEMS: A 10-point review of systems was performed and was negative No VICK or change in vision No GI or sx No dysphagia or odynophagia No oral lesions No CP No increased cough, no increased SOB No LE edema No rash Denies numbness No fever, chills, NS NO GI or sx OBJECTIVE: BP 110/80 Wt 82 kg (180 lb 12.4 oz) BMI 26.68 kg/m2 No scleral icterus, conjunctivae pink. Pupils equal. He has no oral lesions. No cervical or supraclavicular lymphadenopathy. Lungs: clear with poor air movement bilaterally but no wheezes/rales/rhonchi Cardiac exam reveals a regular rhythm. Abdomen: slightly distended. Bowel sounds are present, soft, nontender, no hepatosplenomegaly or masses appreciated. Extremities: He has no edema. He has chronic changes in his nails which are stable. No axillary adenopathy No acute rash. Alopecia without change DIAGNOSTIC DATA: Labs done 02/26/2013 CBC: WBC 8.59 Hct 43.6 Plts 193K Chemistries significant for: creatinine 1.2 PO4 2.9 glc 81 Bili 1.49 Alk phos 78 AST/ALT 20/49 CK 105 Lytes wnl Lipid panel: LDL 76 HDL 20 TGs 347 CD4 count was 905 and 29% HIV PCR detected but < [...] appears to be holding. His phosphorus is down a bit on recent blood work. As his present medications are not only treating his HIV but are also treating his chronic hepatitis B Ithink that we will need to try to continue him on his tenofovir. We will need to watch his creatinine closely. Would continue his present regimen and would have him have repeat blood work and a followup with myself in the comprehensive care clinic in about 4 months. 2. Tobacco use -still smoking and he is actually contemplating quitting. He got a nicotine inhaler for Loree. Encouraged him to set a quit date 3. Depression - continues to do well [...] on his most recent biopsy. HBV DNA has been undetectable on [...] next appointment. Tdap was given in 09/2011. He had a flu vaccine this fall. 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 He remains asymptomatic. CXR done after his last visit was stable. If any change may need repeat CT of the chest. documented in this encounter Plan of Treatment Not on filedocumented as of this encounter Visit Diagnoses Diagnosis Human immunodeficiency virus (HIV) disea se ([facility]) (HCC) - Primary Human immunodeficiency virus [HIV] disea se Encounter for long-term (current) use of other medications Tobacco use disorder Chronic active type B viral hepatitis (H CC) Viral hepatitis B without mention of hep atic coma, chronic, without mention of hepatitis delta Chronic hepatitis C without mention of h epatic coma documented in this encounter Care Teams Fiberglass Insulation Installer Relationship Specialty Start Date End Date Hanane Pollock NP PCP - General 01/30/09 02/23/19 [facility] [address] [place] [address] documented as of this encounter
--- OUTSIDE RECORDS SUMMARY | 2022-05-02 11:05 | XMS_ITS | Encounter Summary ---
:1970 Author Organization [facility] Address [address] [place] [address] Care Team Providers Name Role Phone Hanane Pollock NP Primary Care Provider Reason for Visit Reason Comments Follow-up Encounter Details Date Type Department Care Team Description 10/28/2012 Office Visit [facility] Juli Franz, AIDS (acquired immune deficiency syndrome) ([facility]-H[facility]) (Primary Dx); Infectious Disease - Chronic active type B viral hepatitis ([facility]-HCC); [facility] Chronic hepatitis C without mention of hepatic coma; [address] Tobacco dependence syndrome [place], [place] [address] Social History Tobacco Use [...] Sign Reading Time Taken Comments Blood Pressure 136/80 10/28/2012 0956 EDT Pulse - - Temperature 36.2 ??C (97.2 ??F) 10/28/2012 0956 EDT Respiratory Rate - - Oxygen Saturation - - Inhaled Oxygen Concentration - - Weight 81.5 kg (179 lb 10.8 oz) 10/28/2012 0956 EDT Height - - Body Mass Index 26.53 05/23/2011 0832 EST documented in this encounter Ordered Prescriptions Prescription Sig Dispensed Refills Start Date End Date atazanavir (REYATAZ) 300 Take 1 Cap by mouth 30 Cap 3 04/06/2013 mg capsuleIndications: daily. AIDS (acquired immune deficiency syndrome) (HCC-CMS) (HCC) ritonavir (NORVIR) 100 mg Take 1 Tab by mouth 30 Tab 3 0 10/28/2012 04/06/2013 tabletIndications: AIDS every 24 hours. (acquired immune deficiency syndrome) (HCC-CMS) (HCC) lamiVUDine (EPIVIR) 300 mg Take 1 Tab by mouth 30 Tab 3 10/28/2012 04/06/2013 tabletIndications: AIDS daily. (acquired immune deficiency syndrome) (HCC-CMS) (HCC) tenofovir (VIREAD) 300 mg Take 1 Tab by mouth 30 Tab 3 0 10/28/2012 04/06/2013 tabletIndications: AIDS daily. (acquired immune deficiency syndrome) (HCC-CMS) (HCC) Raltegravir (ISENTRESS) Take 1 Tab by mouth 60 Tab 3 04/06/2013 400 mg TabIndications: 2 times daily. AIDS (acquired immune deficiency syndrome) (HCC-CMS) (HCC) documented in this encounter Progress Notes Beena Wayne - 10/29/2012 0833 EDT Faxed lab orders to [facility] lab [phone] Juli Zaragoza MD - 10/28/2012 0949 EDT [facility] FOLLOWUP NOTE DOS 10/28/2012 Last seen: 06/03/2012 SUBJECTIVE: Guanakito presents for reevaluation of his HIV disease and his chronic hepatitis B. and C. Since he was last seen he has been feeling fairly well. He denies any acute illnesses. His appetite has been good. He was physically active this winter doing a lot of snowmobiling. He says that his energy waxes and wanes (more good than bad days). His only acute complaint today is that he has had a steady VICK x few days. He reports that it is mildand is not interfering with his ability to do things. He denies any change in his vision. No nausea.No photophobia. No fevers, chills, night sweats. He has been wearing his glasses regularly. No other acute complaints today. Allergies reviewed [...] Lives with his partner They have chickens, 2 cats and 3 dogs at home. He is not working FAMILY HISTORY: Nothing to add. REVIEW OF SYSTEMS: A 10-point review of systems really only significant for the findings mentioned above and: No GI or sx No dysphagia or odynophagia No oral lesions No CP No increased cough, no increased SOB No LE edema No rash Some occasional numbness in his toes and very rarely in his hands OBJECTIVE: BP 136/80 Temp 36.2 ??C (97.2 ??F) Wt 81.5 kg (179 lb 10.8 oz) No scleral icterus, conjunctivae pink. Pupils equal. He has no oral lesions. Fair dentition. No cervical or supraclavicular lymphadenopathy. Lungs: clear with decreased breath sounds at the apices bilaterally Cardiac exam reveals a regular rhythm. Abdomen: Bowel sounds are present, soft, nontender, no hepatosplenomegaly or masses appreciated. Extremities: He has no edema. He has chronic changes in his nails which are stable. No acute rash. Alopecia without change DIAGNOSTIC DATA: Labs done 09/21/2012 CBC really unremarkable Chemistries significant for: creatinine 1.0. PO4 2.9 Rest of chemistries unremarkable CD4 count was 923 and 28% HIV PCR was detectable 39 copies. HBV DNA undetectable ASSESSMENT AND PLAN: 1. HIV positive. Guanakito has AIDS by definition. He has had cryptococcal meningitis. He has done well on his present antiretroviral therapy. I think he has good adherence. He has tolerated the meds well.His viral load is just detectable. His CD4 count is stable to improved. I was concerned that his Cr was up a bit on last labs but it is down again with his present blood work. His phosphorus however isalso down. As his present medications are not only [...] about 3 months. 2. Tobacco use - smoking but less. He is not ready to quit but encouraged him to set a quit date. Heis talking about getting the nicotine inhaler but [...] Limit alcohol 5. Health maintenance. Lipid panel in 10/2011 was acceptable. Will repeat his lipid panel with his next blood work. Hep A antibody neg so would reimmunize with HAV vaccine. We did not have [...] need repeat CT of the chest. 7. VICK - still present but mild and has improved. No other associated symptoms. Will follow for now. documented in this encounter Plan [...] (ISENTRESS) Take 1 Tab by mouth Reorder 06/26/2012 10/28/2012 400 mg TabIndications: 2 times daily. AIDS (acquired immune deficiency syndrome) ([facility]) ([facility]) tenofovir (VIREAD) 300 mg Take 1 Tab by mouth Reorder 06/26/20 12 10/28/2012 tabletIndications: AIDS daily. (acquired immune deficiency syndrome) ([facility]) ([facility]) lamivudine (EPIVIR) 300 Take 1 Tab by mouth Reorder 06/26/2012 10/28/2012 mg tabletIndications: daily. AIDS (acquired immune deficiency syndrome) ([facility]) ([facility]) ritonavir (NORVIR) 100 mg Take 1 Tab by mouth Reorder 06/26/20 12 10/28/2012 tabletIndications: AIDS every 24 hours. (acquired immune deficiency syndrome) ([facility]) ([facility]) atazanavir (REYATAZ) 300 Take 1 Cap by mouth Reorder 2 10/28/2012 mg capsuleIndications: daily. AIDS (acquired immune deficiency syndrome) ([facility]) ([facility]) documented as of this encounter Care Teams Walking Dragline Oiler Relationship Specialty Start Date End Date Hanane Pollock NP PCP - General 01/30/09 02/23/19 [facility] [address] [place] [address] documented as of this encounter
--- OUTSIDE RECORDS SUMMARY | 2022-05-02 11:06 | XMS_ITS | Encounter Summary ---
:1970 Author Organization [facility] Address [address] [place] [address] Care Team Providers Name Role Phone Hanane Pollock NP Primary Care Provider Encounter Details Date Type Department Care Team Description 02/11/2007 Before [facility] Converted [facility] - Efrain Franz, Visit (Sandra) Sandra bauman MD [address] [place] [address] Social History Tobacco Use Types Packs/Day Years Used Date Never Assessed Sex Assigned at Date Recorded Not on file documented as of this encounter Progress Notes Juli Franz MD - 09/19/2009 1706 EST DIVISION OF INFECTIOUS DISEASE - [facility] PROGRESS/FOLLOWUP NOTE - 02/11/2007 PROBLEM Guanakito presents for reevaluation of his HIV disease/AIDS and his chronic fatigue. He was last seen byme in the comprehensive care clinic on January 09, 2007. Since he was last seen, he says his energy levels remains quite low. He really does not have any new, specific complaints. He did follow up with a dentist who did not put him on antibiotics again, but he had some teeth pulled on the other side of his mouth, although it does not sound like they thought that they were infected at the time. Again, hehas not had any subsequent antibiotics. He is still having issues with his bowels. He says he is having soft stool about three times a day and some occasional cramping with it. He never diddrop off a stool specimen. He did see ophthalmology, had a dilated exam and they thought that things looked good.Again, really energy low without any specific complaints. He says he is sleeping okay. He does not think he is depressed. His appetite has been good. He has had no problems with fevers, chills or nightsweats. He continues to have issues with vomiting when he is trying to brush his teeth and he startsto gag or if he has been coughing too much, that can trigger it, but otherwise not really complaining of any nausea and no other episodes of vomiting without those specific triggers. He does say that he may be a bit more short of breath, may have a little bit of increased cough. He is not having problems with chest pain. He has had some viselike headaches, but it does not sound like they have been severe. This is not an ongoing issue. His neck does hurt. He has had no change in his vision, no trouble swallowing, really not complaining of abdominal pain except for the crampiness mentioned above. He is not having any urinary symptoms. He has not noted any dark or tea-colored urine. No problems with new rashes. He says he is getting his medications in regularly and has not missed any doses. His medications are without change. CURRENT MEDICATIONS 1. Zerit 40 mg b.i.d. 2. Dapsone 100 mg a day. 3. Viread 300 mg once a day. 4. Sustiva 600 mg once a day. 5. Epivir 300 mg once a day. OBJECTIVE On physical examination, he is afebrile. Heart rate is 72 and regular. Blood pressure is 122/86. Hisweight was 71.5 kg. He really looks like he does not feel quite as well. His affect is somewhat depressed, although he says it is because he does not feel well. Conjunctivae are injected bilaterally. His pupils are equal. Sclerae nonicteric. He has no active oral lesions, no cervical or supraclavicular lymphadenopathy, no axillary lymphadenopathy. His lungs are clear to auscultation and percussion. Cardiac exam reveals a regular rhythm. I cannot appreciate any murmurs, rubs or gallops. Abdomen: Softand nontender, bowel sounds are present. There is no hepatosplenomegaly or masses appreciated. Extremities are without edema. Skin is without acute rash. Reflexes are equal bilaterally throughout. LABORATORY DATA: No laboratory studies done in preparation for this visit. ASSESSMENT and PLAN 1. Fatigue. This is really a new complaint for Guanakito. He has done quite well over time and this is really a change and does not seem to be improving. He is really not having a whole lot of localizing complaints. I guess my main concern was this all seemed to happen around the time that he was having the dental abscess and issues with that. He did get antibiotics and did have a lot of trouble with diarrhea. I guess some of this could be postinfectious fatigue. There is nothing to go for endocarditis.He never did send the stool specimen. I am still worried about C. difficile with his ongoing, frequent soft stools and some intermittent cramping and we did ask him again to drop off a stool specimen for C. difficile. Because he was having so much diarrhea, I guess his electrolytes could be off, although he did have a potassium and a calcium last time which were normal. We could check his magnesium. He is not really complaining of weakness; it is really more fatigue. He says he just does not have any stamina when he doing anything and really gets pooped very quickly. Guanakito does not really think he is depressed, but I would put that in the differential. He is not really giving us a whole lot of localizing complaints. He has some headaches. 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 I guess hecould have a relapse of his cryptococcal disease, although his CD4 count has been greater than 200. We will check a cryptococcal serum antigen today. Other concern is, could this be lactic acidosis syndrome? It has been going for too long. He is not really having any nausea. He has other reasons to have shortness of breath. His liver tests have not been up, but we will check a serum lactate. We will also check his TSH and his testosterone level. I guess the other concern I have is that he is known to have cirrhosis. He has chronic, active hepatitis B and chronic, active hepatitis C and he does use alcohol in addition, so he issurely at high risk to have complications in terms of liver disease. He is not having fevers. I do not think we are dealing with a hepatoma. We will get an LDH today in addition and will have a low threshold to image his abdomen, although he is reallynot having much of any localizing complaint at the present time. We will await all of the above studies and then would have him follow up with us in the clinic in about one month. He knows to call sooner if he is having any wo rsening localizing complaints. 2. Diarrhea. As mentioned above, we will check stool for C. difficile. 3. HIV. Continue his present regimen, however, if his lactate is up, we will surely need to stop hisdrugs and try to get him a regimen which could be more nucleoside-sparing. 4. Alopecia. I forgot to mention on exam that there are no new areas of this, although there has notbeen improvement in the areas with hair loss. 5. Blurry vision. Again, he had an eye exam today and it was unremarkable. 6. Tobacco use. We discussed quitting. He is not really receptive to the idea at the present time, but not ruling it out completely. Signed by Juli Franz MD 03/13/2007 06:36 Sandy Ortega MD Juli Franz MD -Juli Franz MD - Job ID: [id number] Doc ID: [id number] cc: MD Hanane Robles NP documented in this encounter Plan of Treatment Not on filedocumented as of this encounter Visit Diagnoses Not on filedocumented in this encounter Care Teams Resident Care Aide Relationship Specialty Start Date End Date Hanane Pollock NP PCP - General 01/30/09 02/23/19 [facility] [address] [place] [address] documented as of this encounter
--- OUTSIDE RECORDS SUMMARY | 2022-05-02 11:06 | XMS_ITS | Encounter Summary ---
:1970 Author Organization [facility] Address [address] [place] [address] Care Team Providers Name Role Phone Unavailable Primary Care Provider Unavailable Encounter Details Date Type Department Care Team Description 09/12/2008 Before [facility] - Sarkis Haney, Converted Visit Sandra bauman MD (Sandra) [address] [facility] [address] [place], [place] [id number] [place] [id number] (Wo rk) Social History Tobacco Use Types Packs/Day Years Used Date Never Assessed Sex Assigned at Date Recorded Not on file documented as of this encounter Plan of Treatment Not on filedocumented as of this encounter Procedures Procedure Name Priority Date/Time Associated Diagnosis Comme [facility] SURGICAL PATHOLOGY Routine 09/12/2008 0:00 EST Re sults for this procedure are i n the results section. documented in this encounter Results SURGICAL PATHOLOGY (09/12/2008 0:00 EST) Pathology Report: SURGICAL PATHOLOGY REPORT ? [facility] Reports generated via [employer] interface contain original data; ? LAB however they are lacking the format of the original report. ? Caution should be taken when reading/interpreting unformatted reports. ? Name: ? SNIDE, KALEB ? Accession #: ? [id number] ? : ? 1970 (Age: 38) ??M ? Collec t Date: ? 09/12/2008 ? Location: ? [facility] ? R eceive Date: ? 09/12/2008 ? Provider: SARKIS HANEY MD ? Copy to: SAMI MCCORMACK [employer] MANAGER ? NEW B RAMUNDO MD ? Final Pathologic Diagnosis: ? A. ??Colon, sigmoid, 30 cm, biopsy: ? 1. ??Tiny leiomyom a. ? B. ??Rectum, biopsy: ? 1. ??Hyperplastic sy yp. ? Document reviewed and electr onically signed by: ? Nelsy Epperson MD ? Report ??Date: 09/14/2008 15 :05 ? By the signature above, the attending physician certifies that he/she has ? personally conducted a gross and/or microscopic examination of the described ? specimens and rendered or co nfirmed the above diagnosis. ? Specimen(s) Received: ? A. ?Sigmoid 30 cm bx ? B. ? Rectal bx ? Clinical History: ? Rectal bleeding ? Gross Description: ? Received in [facility]' s fixative labelled Snide and sigmoid 30 cm bx. ?? The specimen consists of a s bárbara 0.2 x 0.2 x 0.2 cm pink-lazcano irregular soft ? tissue, submitted in toto in (A). ? Received in [facility]'s fixat joseph labelled Snide and rectal bx. ??The specimen consists of two pink-lazcano, ir regular soft tissues, each 0.3 x 0.2 x 0.1 cm, ? submitted in toto in (B). ?? (LGerardo Patrick)/mpl ? End of Report ? Specimen Performing Organization Address City/State/ZIP Code Phon e Number [facility] [address] [place] [address] [facility] [address] [place] [address] documented in this encounter Visit Diagnoses Not on filedocumented in this encounter
--- OUTSIDE RECORDS SUMMARY | 2022-05-02 11:06 | XMS_ITS | Encounter Summary ---
:1970 Author Organization Health system Address [address] [place] [address] Care Team Providers Name Role Phone Hanane Pollock NP Primary Care Provider Encounter Details Date Type Department Care Team Description 04/22/2007 Before PRISM Converted [facility] - Efrain Franz, Visit (Sandra) Sandra bauman MD [address] [place] [address] Social History Tobacco Use Types Packs/Day Years Used Date Never Assessed Sex Assigned at Date Recorded Not on file documented as of this encounter Progress Notes Juli Franz MD - 09/19/2009 1703 EST DIVISION OF INFECTIOUS DISEASE - [facility] PROGRESS/FOLLOWUP NOTE - 04/22/2007 DONNELL Calabrese presents for reevaluation of his HIV disease/AIDS, his chronic hepatitis and his depression. He was last seen by me in the [facility] on March [id number]. At that time, he was seen for a reevaluation of his complaints of worsening fatigue. We felt that perhaps some of his symptoms could be related to depression and we did start him on Wellbutrin at the time of that visit. He has gradually escalated his dose. He has been taking 100 mg twice daily and he says that he is definitely feeling much better. He has not been really doing much, but says he thinks that his energy level is better. He is definitely eating better and it sounds like his outlook in general is much improved; not thinking about hurting himself. He is having some occasionalvery mild and rather transient headaches. He does not get them every day. He did see the enzyme chemist and they did do some steroid injections into his scalp and he does think that he has had some grow back of his hair. He is certainly not having any worsening of his alopecia. He had some blurry vision just yesterday, but in general he has not been having any worsening problems with his vision. His vision is fine today. He did have some more dental extractions. These were just done because the teeth were loose and not because there was anyevidence of infection. He has not had any pain in his mouth. He has not had any further antibiotics.He has had no respiratory symptoms. He is smoking more again, but denies any worsening of his chronic smoker'scough, no shortness of breath, no chest pain, no abdominal pain, nausea or vomiting. His stools are definitely firmer, not complaining of any diarrhea, no difficulty urinating, no new neuromuscular complaints. When he has his arms over his head for a prolonged period of time, he is having some numbness in his hands, no weakness, no other neuromuscular complaints. No problems with fevers, chills or night sweats. He is using alcohol very infrequently. Again, he is now smoking up to a pack nick half a day. He said that since he was last seen, he has had about three and a half beers. MEDICATIONS Without change except for the addition of the Wellbutrin 100 mg twice daily. OBJECTIVE On physical examination, he looks well. His weight is 73.9 kg, afebrile, nontoxic, no acute distress. He still have hair loss really at the normal hairline at the base of the neck posteriorly, but he had no patches of alopecia more superiorly on the scalp and he does look like he is having some new hair growth at the posterior part of the neck. I did not appreciate any cervical or supraclavicular lymphadenopathy. He is missing his two bottom teeth in the front, but I do not see any problems with anyswollen areas along the gum. He has no oral lesions. His lungs are clear to auscultation and percussion. He has no spinal tenderness. Cardiac exam reveals a regular rhythm without murmurs, rubs or gallops. Abdominal exam: Slightly distended. Bowel sounds are present, soft, nontender. I really cannot appreciate any hepatosplenomegaly or masses. Extremities: He has no edema. Skin is without acute rash.Neurologic: Exam is grossly nonfocal. LABORATORY DATA: Studies done in preparation for this visit, CBC was significant for a white count of 12.47, his hemoglobin was17, his platelet count was 202,000. Chemistries: He had a normal calcium, normal glucose; creatinine 0.9, electrolytes only significant for a sodium of 134. He had normal transaminases. His TSH was 0.93. His viral load was just detectable at 181 copies and his CD4 count was 502 and 17%. I should note that he did have a stool study done since he was last seen and his C. difficile was negative. ASSESSMENT and PLAN 1. Fatigue. This has really been the major issue and we did do some workup for this. Again, his TSH was fine. That was the only thing that was really outstanding. At the time of his last visit we thought that perhaps this was related to depression. He has now been on the antidepressants just about five weeks and already he seems to have had an excellent response and is definitely feeling better. His energy level is better and so we would plan to continue him on his Wellbutrin at the present dose, 100 mg twice daily and follow clinically. 2. HIV positive/AIDS. He is status post cryptococcal meningitis. I am a bit concerned that his viralload is detectable. This happened once before and, on further questioning, it appeared that it may have been related to an intraarticular steroid injection. I am wondering if that is playing a role agayousuf n, meaning he had steroid injections into his scalp. This might explain his elevated white blood cell count and also the blip in his viral load. He has really had no other intercurrent illnesses. He has been taking his medications regularly. For nowwould repeat his viral load in about two months to ensure that it is not going up. Would do an ultrasensitive viral load again at that time. If all is stable, would continue his meds and then he would not need to have full blood work until late in June 2007 or early July 2007 and then have him follow up with me in the [facility] after that. For now, we would continue his present regimen. 3. Chronic hepatitis. He has both chronic hepatitis C and chronic hepatitis B. He has had a biopsy and he clearly had evidence of cirrhosis. He has been fairly good about limiting his alcohol intake, although he is not completely alcohol free. He has had a hepatitis A vaccine in the past, but we have not confirmed that he is immune to hepatitis A and, with his next blood work, would plan to check hishepatitis A antibody. In terms of hepatitis B, he has remained on the Viread and the Epivir. We havenot looked to see if he converted his e antigen to a positive e antibody and we can also do that with his next blood work. We also could consider looking at a hepatitis B DNA. He has not been felt to be a candidate for treatment of his hepatitis C, but we may need to reconsider that in the future. I especially do not think he is a good candidate at the present time as we just recently have gotten hisdepression under reasonable control. 4. Tobacco use. I was hoping that on the Wellbutrin, it might help him to decrease or discontinue his tobacco use, but that has not worked. I did encourage him to discuss with his partner that they francesca date to try to discontinue smoking. I think if they do it together, they would be more likely to be successful. 5. Diarrhea. His C. difficile was negative and his diarrhea seems to have resolved. 6. Health Maintenance. He had a PPD placed today. He had a flu shot and he got a second Pneumovax. Signed by Juli Franz MD 06/23/2007 14:13 Juli Franz MD - Juli Franz MD - Job ID: [id number] Doc ID: [id number] cc: Hanane Pollock NP documented in this encounter Plan of Treatment Not on filedocumented as of this encounter Visit Diagnoses Not on filedocumented in this encounter Care Teams Strategy Planning Consultant Relationship Specialty Start Date End Date Hanane Pollock NP PCP - General 01/30/09 02/23/19 [facility] [address] [place] [id number] documented as of this encounter
--- OUTSIDE RECORDS SUMMARY | 2022-05-02 11:06 | XMS_ITS | Encounter Summary ---
:1970 Author Organization [facility] Address [address] [place] [address] Care Team Providers Name Role Phone Unavailable Primary Care Provider Unavailable Encounter Details Date Type Department Care Team Description 05/22/2004 Hospital Encounter [facility] - Daniel Blum, Other MD [address] [phone] [facility] [address] [place] [address] (Wo rk) Social History Tobacco Use Types Packs/Day Years Used Date Never Assessed Sex Assigned at Date Recorded Not on file documented as of this encounter Discharge Disposition Disposition Code Departure Means Destination Auto Discharge documented in this encounter Plan of Treatment Not on filedocumented as of this encounter Visit Diagnoses Not on filedocumented in this encounter
--- OUTSIDE RECORDS SUMMARY | 2022-05-02 11:06 | XMS_ITS | Encounter Summary ---
:1970 Author Organization [facility] Address [address] [place] [address] Care Team Providers Name Role Phone Hanane Pollock NP Primary Care Provider Encounter Details Date Type Department Care Team Description 09/10/2006 Before PRISM Converted [facility] - Efrain Franz, Visit (Sandra) Sandra bauman MD [address] [place] [address] Social History Tobacco Use Types Packs/Day Years Used Date Never Assessed Sex Assigned at Date Recorded Not on file documented as of this encounter Progress Notes Juli Franz MD - 09/19/2009 1701 EST DIVISION OF INFECTIOUS DISEASE - [facility] PROGRESS/FOLLOWUP NOTE - 10/01/2006 DONNELL Calabrese presents for reevaluation of his HIV disease. He was last seen by me [facility] on September 10, 2006. The blood work done in preparation for that visit revealed an elevated viral load and we were concerned about development of resistance. We had a repeat viral load obtainedwith reflex to resistance testing andhe comes in today to review those results and to make a plan for his antiretroviral therapy. He has been feeling well. No new complaints except that while working today he hit his left third digit with a chisel and has a large cut in the finger. This is all very acute and the finger is bandaged at the present time. Other than that, he has been feeling okay. His energy level is good. His appetite is good. No localizing complaints. His shoulders are doing well despite the fact that he has beenworking. He is drinking. He said that he has had seven to eight beers since he was last seen and he is still smoking anywhere between a pack and a half and two packs of cigarettes a day. He thinks thatthe alopecia may be a bit worse and he complains of a chronic rash on his right forearm that has not significantly changed. He is not having any gastrointestinal symptoms. OBJECTIVE On physical examination, his blood pressure was 138/74, weight 71 kg. Nontoxic, no acute distress. He has no oral lesions. Exam only significant for the fact that he has some pink-purple papules on theanterior surface of his left forearm, just proximal to the wrist. They are clearly excoriated. I do not see any similar lesions elsewhere. Otherwise, no acute rash. He has good range of motion of his shoulders. I did not remove the bandage from the left third digit as this was just placed earlier thismorning. Exam is otherwise unremarkable. The area in the posterior aspect of his scalp does look a bit whiter. The other areas that are more superior look about the same. LABORATORY DATA Laboratory studies done in preparation for this visit: Viral load was undetectable at less than 50 copies. Lipid panel: Cholesterol 139, triglycerides 53, HDL 32 and LDL 90. ASSESSMENT AND PLAN 1. HIV positive/AIDS. He is status post cryptococcal meningitis. His CD4 count has been consistentlygreater than 200. The last one was greater than 400. At the time of his last visit we were concernedas his viral load was as high as about 900 copies and we did not have an explanation for this. On review of his history today, it seems that he had an intraarticular injection in his left shoulder about three weeks before that last blood work and I wonder if that could be playing some role in the blipin his viral load. I am encouraged that his viral load is back down and undetectable and would plan to continue his present antiretroviral regimen of Sustiva, Zerit, Viread and Epivir. Would plan to have him get repeat blood work and followup in the comprehensive care clinic in about three months. 2. Prophylaxis. We have stopped fluconazole for prophylaxis for cryptococcal meningitis and he has done well while off fluconazole. He has been off that since early July. Again, withhis CD4 count staying up I think that we can safely discontinue his dapsone and we will do that at the present time. 3. Acute injury to his left hand, which raises the issue of the timing of his last tetanus shot. He has been followed since 2000. We donot have a record of a tetanus shot. He says that he has not been to the local emergency room for any injuries that may require a tetanus shot since the time he has been back in [place]. I think that he should be reimmunized, but we will also [facility] to ensure that he has not had a tetanus shot there. They looked in the medical record thereand it appears that he has no evidence of that. We can also check the records at [facility], although we do have copiesof most of those notes and there is no mention on any tetanus shot being given. He will be due for an update of his TD. . Alopecia. It is very patchy. There seems to be some fine hair there and maybe he is getting some growth back. Would continue him off fluconazole, but he would like to see dermatology regarding the alopecia and we will try to make that referral. 5. 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 He continues to use alcohol. I restressed theneed for him to discontinue alcohol use in the face of his cirrhosis. 6. Rash. This is very similar to the rash that he had on the extensor surfaces of his hands, which was attributed to a photosensitivity from one of his medications. This is a little bit different as itis on the extensor aspect of his forearm, but does look fairly similar. It is quite localized. He does want to go see dermatology and I think would have a low threshold to have these biopsied. By history, they have been fairly chronic and I do not think that they are spreading. He has no systemic symptoms at the present time. 7. Tobacco use. Encouraged him again to try to quit smoking. Offered any nicotine replacement products that may help him in this pursuit. Signed by Juli Franz MD 12/26/2006 06:28 Sandy Ortega MD Juli Franz MD - Nelly Franz MD A - SK Job ID: [id number] Document ID: [id number] cc: Hanane Pollock NP cc: Hanane Pollock NP Juli Zaragoza MD - 09/19/2009 1701 EST DIVISION OF INFECTIOUS DISEASE - [facility] PROGRESS/FOLLOWUP NOTE - 09/10/2006 [facility] DONNELL Calabrese presents for reevaluation of his HIV disease/AIDS. [facility] He actually stopped in briefly with an acute complaint, I believe this was in June, complaining of new focal alopecia. We made a plan at that time to discontinue his fluconazole. Otherwise he has remained on the same medication. He presents now for reevaluation. He says he has not had any acute illnesses since he was last seen in April. He still has occasionalvomiting in the morning when he has a significant cough, but otherwise has been doing well. His appetite has been good his energy level has been good. He continues to smoke two packs per day. He continues to have issues with some blurry vision but he has followed withophthalmology regularly. He has not had any oral lesions. No difficulty swallowing or pain with swallowing. No headaches. No respiratory complaints. He has had some recent abdominal soreness, but this occurred after he fell while he was skiing and actually is feeling better. Again, really not having any problems with nausea and diarrhea. No genitourinary complaints. No problems with new rashes. He has some numbness in his toes. This seems to come and go. Nothing painful or persistent. He is having night sweats on a fairly regular basis and thinks he may be having fevers. He says he is taking his med ications regularly, not missing any doses. In addition, he does not think that he has been depressed. MEDICATIONS 1. Again, he is off the fluconazole since early July. 2. Sustiva 600 once a day. 3. Zerit 40 twice a day. 4. Dapsone 100 once a day. 5. Viread 300 once a day. 6. Epivir 300 once a day. OBJECTIVE On physical examination, he looks well. He looks thinner, but his weight really is quite good at 73.3 kg. Pulse was 70 and regular. Blood pressure 130/86. His temperature was 98.3. Pupils are equal andreactive. Sclerae nonicteric. Conjunctivae pink. He had no oral lesions. He has no cervical or supraclavicular lymphadenopathy. His lungs are clear to auscultation and percussion. Cardiac exam reveals a regular rhythm without murmurs, rubs or gallops. Abdominal exam: Bowel sounds are present. His abdomen does look a little bit distended. I thought I couldjust appreciate a spleen tip. His liver is notenlarged by percussion. He really has no tenderness. I cannot appreciate any masses. Extremities arewithout edema. He has the chronic nail changes. They are almost greenish and thickened in color and he does have clubbing of his fingers which is chronic. In terms of skin he does have area of alopeciaon his scalp, really mostly left-sided. A big one in the posterior aspect of the left side of his hea d and then one more superiorly. I really cannot appreciate hair follicles at that site. His hair otherwise normal male pattern baldness. He really does not have any loss of the hair elsewhere on his body. In terms of his skin he does have some [id number] colored papules on the flexor aspect of his wrist, which have some element of excoriation and may be some light scale, but really no diffuse rash.In terms of neurologic examination his motor strength is 5/5. His reflexes are decreased bilaterallythroughout, 1+ with enhancement maneuvers in the lower extremities. Laboratory studies done in preparation for this visit. His viral load was detectable at 868 copies. His CD4 count stable at 494 and 16%. CBC really unremarkable. His creatinine was 0.9. Chemistries otherwise unremarkable. He had normal transaminases. His lipid panel: His triglycerides were 202 with anHDL of 30, LDL of 84. ASSESSMENT/ PLAN 1. HIV positive/AIDS. He has had a history of cryptococcal meningitis. We stopped his fluconazole inJanuary. He has not had any symptoms to suggest any relapse of his cryptococcal disease. I have to say the lesions in the right wrist area are not suspicious for cutaneous cryptococcus, but I guess it is possible. He is not having any headache or any other symptoms to suggest relapse of hiscryptococcus. My major concern is that his viral load is detectable. This is really new. He has had a little blip once before and then his viral load came back down and remained undetectable. He says he is taking his medications regularly and not missing doses, but he has not had any recent vaccines or intercurrent illness that might account for an increase in his viral load. Would like to repeat this next month. With his viral load, will ask for reflex to resistance testing if his viral load is greater than 1000. Would have him follow up after we have those results. Would like to make changes sooner than later in his regimen. I guess my major concern would be that he has lost his NNRTI and that he would haveto be on a PI based regimen. But for now will leave him on his present four drug regimen and await his repeat viral load. I have to say the good news is that his CD4 count is in a reasonable range at the present time, so would like to make changes sooner than later to prevent any further deteriorationin his immune system. 2. Hepatitis. He has both hepatitis C and hepatitis B and unfortunately does use alcohol still. We discussed that again. He knows he needs to limit his alcohol, ideally discontinue it altogether in view of his chronic liver disease. His most recent transaminases have been normal. On biopsy the majority of the activity was hep B which we are treating with his Viread and Epivir. We have not felt that he has been a good candidate for hepatitis C therapy, and again that was a minor component of the hepatic inflammation on his past liver biopsy. He will continue to monitor his liver test and continue his Viread and Epivir. Not a candidate for hep C therapy at the present time. 3. Tobacco use. We had a discussion about this again today. Really encouraged him to try to quite smoking. His lipid panel is not terrible, but his HDL is low. His LDL is actually also low. His triglycerides are up a little bit. He really does not have other risks factors. No diabetes, no hypertension, but he smokes a lot, and ideally I think the best thing we could do would be to get him to quit smoking, and I would not treat his lipids at the present time. Encouraged him to think about trying the patch and encouraged his partner to quit at the same time to increase the likelihood of them being successful. 4. Alopecia. This is really extremely bothersome to the patient, and it sounds like to his partner in addition. We did have a long discussion about it today. I have to say fluconazolecan cause alopecia. This seems so focal this could be alopecia areata, unclear as to the trigger factor, but will continue to follow. He has only been off the fluconazole for about two months, and will see if we start tosee any grow back, but it soundslike he would like to be seen by dermatology and I think that is reasonable to see if they have anything else to add. It may be worth biopsying the area to see if there are follicles there that could be stimulated. I have to say on exam it really lookslike he has loss of follicles at the site. 5. Prophylaxis. Again his CD4 count has stayed up, although the percent is somewhat low. I think we should consider stopping his Dapsone. We did not do that today but I think we can consider that at the timeof his next visit. I guess it does depend on if we have problems controlling his viral load andwe are concerned about further decrease in his CD4 count in the near future. Signed by Juli Franz MD 11/12/2006 06:09 Sandy Ortega MD Juli Franz MD - Nelly Franz MD P - DD Job ID: [id number] Document ID: [id number] cc: [facility] documented in this encounter Plan of Treatment Not on filedocumented as of this encounter Visit Diagnoses Not on filedocumented in this encounter Care Teams [employer] Handicapper Relationship Specialty Start Date End Date Hanane Pollock, SOM PCP - General 01/30/09 02/23/19 [facility] [address] [place] [address] documented as of this encounter
--- OUTSIDE RECORDS SUMMARY | 2022-05-02 11:06 | XMS_ITS | Encounter Summary ---
:1970 Author Organization [facility] Address [address] [place] [address] Care Team Providers Name Role Phone Hanane Pollock NP Primary Care Provider Encounter Details Date Type Department Care Team Description 04/21/2001 Results Only [facility] - Sandra palm, Provider, conversion [address] [place] [address] Social History Tobacco Use Types Packs/Day Years Used Date Never Assessed Sex Assigned at Date Recorded Not on file documented as of this encounter Plan of Treatment Not on filedocumented as of this encounter Procedures Procedure Name Priority Date/Time Associated Comments Diagnosis HIV-1 (WESTERN BLOT) Routine 04/21/2001 11:32 Res ults for this EDT procedure are i n the results section. HEMAGRAM & DIFF Routine 04/21/2001 11:32 Results for this EDT procedure are i n the results section. QUANTITATIVE HIV Routine 04/21/2001 11:32 Results for this POLYMERASE CHAIN EDT procedure a re in REACTION the results section. TOXOPLASMOSIS AB USE Routine 04/21/2001 11:32 Res ults for this ONLY IF 1:1 DILUTION EDT procedu re are in REQUESTED, OTHERWISE the res ults USE TOXOG section. T CELL SUBSETS Routine 04/21/2001 11:32 Results f or this EDT procedure are i n the results section. HEPATITIS C AB W Routine 04/21/2001 11:32 Results for this REFLEX TO HCV RNA BY EDT procedu re are in PCR the results section. HEPATITIS A TOTAL Routine 04/21/2001 11:32 Result s for this ANTIBODY W REFLEX EDT procedure are in the results section. HEPATITIS B SURFACE Routine 04/21/2001 11:32 Resu lts for this ANTIGEN CONFIRMATION EDT procedu re are in the results section. HEPATITIS B CORE Routine 04/21/2001 11:32 Results for this ANTIBODY (TOTAL) EDT procedure a re in the results section. HEPATITIS B SURFACE Routine 04/21/2001 11:32 Resu lts for this ANTIBODY EDT procedure are i n the results section. HEPATITIS B SURFACE Routine 04/21/2001 11:32 Resu lts for this ANTIGEN EDT procedure are i n the results section. SYPHILIS SERO (RPR) Routine 04/21/2001 11:32 Resu lts for this EDT procedure are i n the results section. HIV 1/2 ANTIGEN AND Routine 04/21/2001 11:32 Resu lts for this ANTIBODY, 4TH EDT procedure are in GENERATION the results section. COMPREHENSIVE Routine 04/21/2001 11:32 Results fo r this METABOLIC PANEL (CMP) EDT proced ure are in the results section. documented in this encounter Results TOXOPLASMOSIS AB USE ONLY IF 1:1 DILUTION REQUESTED, OTHERWISE USE TOXOG (04/21/2001 11:32 EDT) Toxoplasmosis Ab Acute ititer=<1:16, ??Please submit another specimen in 3 weeks if current [facility] ?? infection is suspected. ??Test performed by [facility] ?? [facility], [place], [place] Specimen Performing Organization Address City/[facility] Phon e Number [facility] [address] [place] [address] [facility] [address] [place] [address] SYPHILIS SERO (RPR) (04/21/2001 11:32 EDT) Pathologist Sig nature Syphilis Sero (RPR) NONREACT. NR Dils [facility] Specimen Performing Organization Address City/[facility]/[place]IP [facility] [place] Number [facility] [address] [place] [address] [facility] [address] [place] [address] (ABNORMAL) IMMUNODEFICIENCY PANEL (04/21/2001 11:32 EDT) CD3 87 (H) 67 - 84 % [facility] CD4 2 (L) 40 - 65 % [facility] CD8 83 (H) 10 - 38 % [facility] Absolute CD4 13 (L)Comment: The 702 - 1791 per [facility] absolute CD4 count UL was calculated using the manual differential Specimen Performing Organization Address City/[facility] Phon e Number [facility] [address] [place] [address] [facility] [facility] [address] [place] [address] HIV-1 (WESTERN BLOT) (04/21/2001 11:32 EDT) [facility] HIV-1 Western Blot Positive. ??Antibodies react ed with the following antigen bands: p24, gp41, [facility] ?? p51, p55, p65, gp120, gp160 Test performed by [facility], [place], [place] HIV-1 Abs-EIA REACTIVE [facility] Specimen Performing Organization Address City/[facility] Phon e Number [facility] [address] [place] [address] [facility] [facility] [address] [place] [address] QUANTITATIVE HIV POLYMERASE CHAIN REACTION (04/21/2001 11:32 EDT) [facility] HIV1 RNA 49,460 [facility] Unit: copies/mL ??(Note) This test is performed pursu ant to a license agreement with ? [employer] ? TEST PERFORMED OR REFERRED B Y MML ? MML ? [address] ? [place], [place] ??[address] ? Specimen Source Plasma [facility] Specimen Performing Organization Address City/[facility]/ZIP Code Phon e Number [facility] [address] [place] [address] [facility] [facility] [address] [place] [address] (ABNORMAL) HIV ANTIBODY (JOSEFINA) (04/21/2001 11:32 EDT) HIV 1/2 Antibody REACTIVE NR [facility] Sent to [facility], [place], [place] for further testing. (A) Specimen Performing Organization Address City/State/ZIP Code Phon e Number [facility] [address] [place] [address] [facility] [address] [facility] [address] [place] [address] (ABNORMAL) HEPATITIS C ANTIBODY (04/21/2001 11:32 EDT) Pathologist Sig nature Hepatitis C Ab Pos [facility] Indicates recent or remote infection. (AA) Specimen Performing Organization Address City/[facility]/ZIP Code Phon e Number [facility] [address] [place] [address] [facility] [facility] [address] [place] [address] (ABNORMAL) HEPATITIS B CORE ANTIBODY (04/21/2001 11:32 EDT) Hep B Core Ab Pos [facility] Indicates either remote past infection OR window period between disappearance of HBsAg and appearance of HBsAb. (AA) Specimen Performing Organization Address City/[facility] Phon e Number [facility] [address] [place] [address] [facility] [facility] [address] [place] [address] (ABNORMAL) HEPATITIS B SURFACE ANTIGEN CONFIRMATION (04/21/2001 11:32 EDT) Hepatitis B Surface Pos [facility] Antigen Confirmation Positive, confirmed by inhibition (AA) LAB Specimen Performing Organization Address [facility] Phon e Number [facility] [address] [place] [address] [facility] [address] [place] [address] HEPATITIS B SURFACE ANTIGEN (04/21/2001 11:32 EDT) Hepatitis B Positive screen, [facility] Surface Ag confirmation to LAB follow. Specimen Performing Organization Address [facility] Phon e Number [facility] [address] [place] [address] [facility] [address] [place] [address] HEPATITIS B SURFACE ANTIBODY (04/21/2001 11:32 EDT) Pathologist Sig nature Hepatitis B Surface Ab Neg [facility] Specimen Performing Organization Address City/[facility]/ZIP Code Phon e Number [facility] [address] [place] [address] [facility] [address] [place] [address] HEPATITIS A TOTAL ANTIBODY (04/21/2001 11:32 EDT) Pathologist Sig nature Hep A Antibody Neg [facility] Specimen Performing Organization Address City/[facility]/[place]IP [facility] [place] Number [facility] [address] [place] [address] [facility] [facility] [address] [place] [address] (ABNORMAL) COMPREHENSIVE METABOLIC PANEL (04/21/2001 11:32 EDT) Pathologist Sig nature Potassium 3.8 3.5 - 5.0 mEq/L [facility] Sodium 141 136 - 145 mEq/L [facility] Chloride 104 96 - 110 mEq/L [facility] CO2 27 24 - 30 mEq/L [facility] Total Alkaline 102 38 - 126 U/L [facility] Phosphatase Bilirubin, Total 0.4 0.2 - 1.3 mg/dl [facility] AST 101 (H) 8 - 50 U/L [facility] ALT 195 (H) 15 - 75 U/L [facility] Albumin 3.3 3.0 - 5.5 g/dl [facility] Total Protein 6.5 6.0 - 8.5 g/dl [facility] Creatinine 0.8 0.7 - 1.5 mg/dl [facility] BUN 12 10 - 26 mg/dl [facility] Calcium 8.4 (L) 8.5 - 10.[address] [facility] mg/dl Calculated Calcium 9.5 8.5 - 10.[address] [facility] mg/dl Glucose, Serum 86 70 - 110 mg/dl [facility] Albumin/Globulin Ratio 1.[address] [facility] Specimen Performing Organization Address City/State/ZIP Code Phon e Number [facility] [address] [place] [address] [facility] [address] [place] [address] (ABNORMAL) HEMAGRAM & DIFF (04/21/2001 11:32 EDT) Pathologist Sig nature WBC 2.67 (L) 4.0 - 10.4 K/cmm [facility] RBC 3.84 (L) 4.36 - 5.78 M/cmm [facility] Hemoglobin 11.9 (L) 13.8 - 17.3 gm/dl [facility] HCT 34.1 (L) 39.5 - 50.2 % [facility] MCV 89 81 - [address] [facility] MCH 30.9 27.6 - 33.[address] [facility] MCHC 34.8 32.8 - 36.4 gm/dl [facility] PLT 186 141 - 320 K/cmm [facility] RDW-CV 13.1 11.8 - 14.1 % [facility] Neutrophils 49 45.5 - 79.7 % [facility] Lymphocytes 32 15.0 - 46.8 % [facility] Monocytes 14 (H) 1.8 - 12.0 % [facility] Eosinophils 4 0.6 - 6.9 % [facility] Basophils 1 0.2 - 1.4 % [facility] ABS Neutrophils 1.31 (L) 2.20 - 8.85 K/cmm [facility] ABS Lymphs 0.85 (L) 1.09 - 3.30 K/cmm [facility] ABS Monocytes 0.37 0.1 - 0.8 K/cmm [facility] ABS Eosinophils 0.11 0.03 - 0.61 K/cmm [facility] ABS Basophils 0.03 0.01 - 0.11 K/cmm [facility] RBC Morphology NRMA [facility] Type of Diff: Manual [facility] Specimen Performing Organization Address City/State/ZIP Code Phon e Number [facility] [address] [place] [address] [facility] [facility] [address] [place] [address] documented in this encounter Visit Diagnoses Not on filedocumented in this encounter Care Teams Training Generalist Relationship Specialty Start Date End Date Hanane Pollock NP PCP - General 01/30/09 02/23/19 [facility] [address] [place] [address] documented as of this encounter
--- OUTSIDE RECORDS SUMMARY | 2022-05-02 11:06 | XMS_ITS | Encounter Summary ---
:1970 Author Organization [facility] Address [address] [place] [address] Care Team Providers Name Role Phone Hanane Pollock INTERNET MERCHANT Primary Care Provider Unknown, Provider Primary Care Provider None, Provider Primary Care Provider Unavailable Sabrina Jerome INTERNET MERCHANT Primary Care Provider Encounter Details Date Type Department Care Team Description 11/30/2002 Before PRISM Converted [facility] Henrietta Franz, Visit ([place] [address] [place] [address] Social History Tobacco Use Types Packs/Day Years Used Date Never Assessed Sex Assigned at Date Recorded Not on file documented as of this encounter Plan of Treatment Not on filedocumented as of this encounter Procedures Procedure Name Priority Date/Time Associated Diagnosis Comme nts RAD US GUIDANCE, Routine 11/30/2002 13:58 Results for this BX, ASP, INJ, LOC EDT procedure are in the results section. documented in this encounter Results RAD US GUIDANCE, BX, ASP, INJ, LOC (11/30/2002 13:58 EDT) Anatomical Region Laterality Modality Other Specimen Impressions [facility] - 03/28/2009 2: 38 EDT IMPRESSION: 1. Successful core biopsy of the right l obe of the liver. 2. No focal liver lesions were identifie d. Dr. Yan Strickland was present for the enti re procedure. dw Narrative [facility] - 03/28/2009 2: 38 EDT US LIVER BX. AIDS W/ H/O CRYPTOCOCCAL MENNIGITIS. KNOWN HBV - HCV + ??P T W/INCREASED ST/LT ON HAART. R/O FLARE OF VIRAL HEPATITIS VS DRUG TOX ICITY VS STEATOHEPATITIS ? ULTRASOUND-GUIDED BIOPSY: 11/30/02 13:00 HOURS CLINICAL INDICATION: Ultrasound of the liver; history of AIDS with history of cryptococcal meningitis; known hepatitis B and hepati tis C virus. The risks and benefits of the procedure were explained to the patient and informed consent was obtained. Surve y of the liver was performed with ultrasound and no focal lesions wer e identified. Ultrasound localization of the right lobe was perfo rmed and two 18 gauge core biopsies were performed in the right lob e. The patient tolerated the procedure well and there were no complic ations. Procedure Note Juan Pablo Sandoval MD / Yan Strickland, DO - 03/28/2009 US LIVER BX. AIDS W/ H/O CRYPTOCOCCAL ME NNIGITIS. KNOWN HBV - HCV + P T W/INCREASED ST/LT ON HAART. R/O FLARE OF VIRAL HEPATITIS VS DRUG TOX ICITY VS STEATOHEPATITIS ? ULTRASOUND-GUIDED BIOPSY: 11/30/02 13:00 HOURS CLINICAL INDICATION: Ultrasound of the liver; history of AIDS with history of cryptococcal meningitis; known hepatitis B and hepati tis C virus. The risks and benefits of the procedure were explained to the patient and informed consent was obtained. Surve y of the liver was performed with ultrasound and no focal lesions wer e identified. Ultrasound localization of the right lobe was perfo rmed and two 18 gauge core biopsies were performed in the right lob e. The patient tolerated the procedure well and there were no complic ations. IMPRESSION IMPRESSION: 1. Successful core biopsy of the right l obe of the liver. 2. No focal liver lesions were identifie d. Dr. Yan Strickland was present for the enti re procedure. [place] Performing Organization Address City/State/ZIP Code Phon e Number [facility] [address] [facility] [address] [facility] [address] [place], [place] [address] documented in this encounter Visit Diagnoses Not on filedocumented in this encounter Care Teams Mess Attendant Crew Relationship Specialty Start Date End Date Hanane Pollock, SOM PCP - General 01/30/09 02/23/19 [facility] [address] [place] [address] Unknown, Provider, PCP - General 02/24/19 03/01/20 None, Provider PCP - General 03/02/20 03/28/21 Sabrina Jerome NP PCP - General 03/29/21 [address] [place] [id number] documented as of this encounter
--- OUTSIDE RECORDS SUMMARY | 2022-05-02 11:06 | XMS_ITS | Encounter Summary ---
:1970 Author Organization [facility] Address [address] [place] [address] Care Team Providers Name Role Phone Hanane Pollock NP Primary Care Provider Encounter Details Date Type Department Care Team Description 03/11/2007 Before PRISM Converted [facility] - Efrain Franz, [facility] Sandra bauman MD [address] [place] [address] Social History Tobacco Use Types Packs/Day Years Used Date Never Assessed Sex Assigned at Date Recorded Not on file documented as of this encounter Progress Notes Juli Franz MD - 05/21/2009 0115 EST DIVISION OF INFECTIOUS DISEASE - [facility] PROGRESS/FOLLOWUP NOTE - 03/11/2007 DONNELL Calabrese presents for reevaluation for his HIV disease/AIDS and his chronic fatigue. He was last seen by me in the comprehensive care clinic in [facility] on February 11, 2007. Since he was last seen he says that the fatigue may be a little bit better, but his energy is still markedly down. He really does not have any new complaints. He had been having some problems with headache, but those have seemed to resolve completely. He continues to struggle with intermittent problems with diarrhea. He says he did drop off a stool specimen as we had asked at the time of his last visit, but we checked with the lab and they had no record of ever processing the stool specimen. He is really not complaining of other complaints except for feeling depressed. It does not sound like he is having any change in his vision. No oral lesions. No difficulty swallowing. No new respiratory complaints. He did have pulmonary function tests and he does have some findings of chronic lung disease. No GI symptoms except for the diarrhea. No urinary symptoms. No problems with rash and no otherneuromuscular complaints except for the headache as mentioned above. No fevers, chills, or night sweats. He says he is getting his medications in regularly. He is not missing doses. He is still smoking. He does use alcohol, but not on a daily basis. MEDICATIONS 1. Zerit 40 twice a day. 2. Dapsone 100 a day. 3. Viread 300 once a day. 4. Sustiva 600 once a day. 5. Epivir 300 once a day. OBJECTIVE On physical examination, he looks depressed. His weight was 73.4 kg, which was quite stable. He had a limited physical examination today as he really had no new complaints. LABORATORY DATA Review of laboratories sent for evaluation of his fatigue, again did not get a C. diff. He did have chemistries. His magnesium was fine. He had a serum cryptococcal antigen which was negative. His LDH was normal. His lactate was 0.9. His testosterone level was normal. ASSESSMENT AND PLAN 1. Fatigue. Somehow or another, we did not get his TSH that we had wanted to get as part of his workup for fatigue. He will get that with his next blood work. Everything else has been normal. He reallyhas no localizing complaints except for the ongoing diarrhea. The difference today is he really seems depressed and he is talking about being depressed. With the discussion, he was quite tearful and clearly quite upset. On asking him he says that he is not planning to hurt himself, but he clearly has been thinking about a lot of different issues and it sounds like he is really feeling quite hopeless.When he is describing fatigue, he is describing having difficulty getting himself to go work or to doother things. It may be more of a motivational issue. I do think there are multiple factors playing a role. He does have some significant lung disease. He has chronic hepatitis with cirrhosis, but now I am very concerned that depression is contributingsignificantly to his fatigue. We have been concerned about depression in the past, but he never felt that he was depressed. After discussion today, he is agreeable to a referral to a therapist and Hanane Pollock will work on connecting him with a therapistin the [facility] area. In addition, we are going to try him on some Wellbutrin. We are going to start at a small dose of 100 mg and have him just take it in the morning once a day. He is going to call us if he has any problems with the medication. He is going to check in with Hanane in about two weeks. We may gradually titrate up the dose. Between the medication and seeing a therapist, hope that we can get his depression under better control and that may help with his fatigue. 2. Depression. As above. 3. HIV. His last blood work was done back in December which was all good. Would plan to repeat his bloodwork in late March and followup with me in the [facility] clinic in early April. 4. 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 I have encouraged him not to use alcohol. I do not think he is a candidate for treatment of his hepatitis, especially in view of his uncontrolled depression at the present time and his continued use of alcohol. In the past, he has not been interested in treatment for his hepatitis. 5. Tobacco use. He is more symptomatic from a lung standpoint. He now has the results of his pulmonary function tests which show that he does have damage to his lungs from tobacco and he is now motivated to try to quit smoking. We are hoping that the Wellbutrin may help with this. We may also intervene with a nicotine replacement medication. We also discussed Chantix. 6. Continued intermittent diarrhea. I still think it is worth doing a Clostridium difficile assay. He never had an issue with diarrhea until he had a couple of courses of oral clindamycin therapy. Signed by Juli Franz MD 03/24/2007 06:23 Sandy Ortega MD Juli Franz MD - Juli Franz MD - LUIS ARMANDO Job ID: [id number] Doc ID: [id number] cc: [facility] Hanane Pollock NP documented in this encounter Plan of Treatment Not on filedocumented as of this encounter Visit Diagnoses Not on filedocumented in this encounter Care Teams Cashier Checker Relationship Specialty Start Date End Date Hanane Pollock, SOM PCP - General 01/30/09 02/23/19 [facility] [address] [place] [address] documented as of this encounter
--- OUTSIDE RECORDS SUMMARY | 2022-05-02 11:06 | XMS_ITS | Encounter Summary ---
:1970 Author Organization [facility] Address [address] [place] [address] Care Team Providers Name Role Phone Hanane Pollock NP Primary Care Provider Unknown, Provider Primary Care Provider None, Provider Primary Care Provider Unavailable Sabrina Jerome NP Primary Care Provider Encounter Details Date Type Department Care Team Description 04/20/2004 Hospital Encounter [facility] - Daniel Blum, Ish MD [address] [facility] [address] [phone] [place], [address] [place] [phone] (Wo rk) Social History Tobacco Use Types [...] on filedocumented in this encounter Care Teams Apparel Manufacture Instructor Relationship Specialty Start Date End Date Hanane Pollock, DIRECTOR [employer]URSING PCP - General 01/30/09 02/23/19 [facility] [address] [place] [address] Unknown, Provider, PCP - General 02/24/19 03/01/20 None, Provider PCP - General 03/02/20 03/28/21 Sabrina Jerome, SOM PCP - General 03/29/21 [address] [place] [phone] documented as of this encounter
--- OUTSIDE RECORDS SUMMARY | 2022-05-02 11:06 | XMS_ITS | Encounter Summary ---
:1970 Author Organization [facility] Address [address] [place] [address] Care Team Providers Name Role Phone Unavailable Primary Care Provider Unavailable Encounter Details Date Type Department Care Team Description 11/30/2002 Hospital Encounter [facility] Juli Franz, Radiology - Main Raoul wells MD [address] [place], [place] [id number] Social History Tobacco Use Types Packs/Day Years Used Date Never Assessed Sex Assigned at Date Recorded Not on file documented as of this encounter Discharge Disposition Disposition Code Departure Means Destination Home or Self Care documented in this encounter Plan of Treatment Not on filedocumented as of this encounter Visit Diagnoses Not on filedocumented in this encounter
--- OUTSIDE RECORDS SUMMARY | 2022-05-02 11:06 | XMS_ITS | Encounter Summary ---
:1970 Author Organization [facility] Address [address] [place] [address] Care Team Providers Name Role Phone Hanane oPllock NP Primary Care Provider Unknown, Provider Primary Care Provider None, Provider Primary Care Provider Unavailable Sabrina Jerome NP Primary Care Provider Encounter Details Date Type Department Care Team Description 05/25/2004 Hospital Encounter [facility] - Daniel Blum, Ish MD [address] [facility] [address] [phone] [place], [address] [place] [id number] (Wo rk) Social History Tobacco Use Types [...] as of this encounter Plan of Treatment Pending Results Name Type Priority Associated Diagnoses Date/Ti me OUTSIDE CD - OTHER CHEST Imaging 16:23 EDT Scheduled Orders Name Type Priority Associated Diagnoses Order S chedule OUTSIDE CD - OTHER Imaging For medic ations that can be CHEST administered at any time during the hosp italization for visit such as immunizations. for 1 Occurrences sta rting 04/30/2011 documented as of this encounter Procedures Procedure Name Priority Date/Time Associated Diagnosis Comme nts SECONDARY READ 04/30/2011 11:40 Results f or this CHEST CT EDT procedure are i n the results section. documented in this encounter Results SECONDARY READ CHEST CT (04/30/2011 11:40 EDT) Anatomical Region Laterality Modality Other Specimen Narrative [facility] - 04/30/2011 11:59 EDT History: ?? [facility] cd * 04/16/11 ct chest SECONDARY READ CHEST Technique: A single breath-hold helical CT acquisit ion was performed through the chest on a multidetector-row scanner wit h a reconstructed slice thickness of 1 mm and retrospectively re constructed 1.0 mm thick sections with 0.50 mm overlapping interv als. ??The scans were obtained from the lung apices through the bases d uring the intravenous administration of nonionic contrast. Sca ns were reviewed on a dedicated PACS workstation for analysis. Comparisons: None. Findings: The evaluation of the chest wa ll shows no abnormalities. The heart and pericardium are normal. Th ere are no enlarged mediastinal or hilar lymph nodes identif ied. The mediastinal and hilar vessels appear normal. No pleural abnormalities are seen. The airways and lungs show a pattern of bilateral upper lobe paraseptal emphysema. There is a lobulat ed 2.5 cm in greatest diameter lesion in the right lung apex t hat may contain an area of eccentric cavitation or perhaps engulfs an area of emphysema. This is concerning for malignancy although infec tion would be an additional consideration. There are 2 additional le sions within the right upper lobe, a nodular lesion approximately 8 m m in diameter within the anterior segment of the right upper lobe and a 3rd irregular density approximately 8 mm in largest dimension in the axillary subsegment of the anterior segment of the right upper lobe. The remaining portions of both lung show some diffuse mild airw ays thickening but no other focal lesions are identified. Scans of the upper abdomen are limited a nd are unremarkable. Impression: 1. 2.5 cm lobulated lesion in the right lung apex concerning for malignancy. Infectious granulomatous dis ease would be an additional but less likely consideration. 2. Two additional small subcentimeter le sions in the right upper lobe which could be infectious or malignant. 3. Diffuse mild airways thickening. 4. Bilateral upper lobe paraseptal emphy sema. Note: The outside report is not availabl e at the time of this reading. Procedure Note 04/30/2011 History: [facility] cd * 1 ct chest SECONDARY READ CHEST Technique: A single breath-hold helical CT acquisit ion was performed through the chest on a multidetector-row scanner wit h a reconstructed slice thickness of 1 mm and retrospectively re constructed 1.0 mm thick sections with 0.50 mm overlapping interv als. The scans were obtained from the lung apices through the bases d uring the intravenous administration of nonionic contrast. Sca ns were reviewed on a dedicated PACS workstation for analysis. Comparisons: None. Findings: The evaluation of the chest wa ll shows no abnormalities. The heart and pericardium are normal. Th ere are no enlarged mediastinal or hilar lymph nodes identif ied. The mediastinal and hilar vessels appear normal. No pleural abnormalities are seen. The airways and lungs show a pattern of bilateral upper lobe paraseptal emphysema. There is a lobulat ed 2.5 cm in greatest diameter lesion in the right lung apex t hat may contain an area of eccentric cavitation or perhaps engulfs an area of emphysema. This is concerning for malignancy although infec tion would be an additional consideration. There are 2 additional le sions within the right upper lobe, a nodular lesion approximately 8 m m in diameter within the anterior segment of the right upper lobe and a 3rd irregular density approximately 8 mm in largest dimension in the axillary subsegment of the anterior segment of the right upper lobe. The remaining portions of both lung show some diffuse mild airw ays thickening but no other focal lesions are identified. Scans of the upper abdomen are limited a nd are unremarkable. Impression: 1. 2.5 cm lobulated lesion in the right lung apex concerning for malignancy. Infectious granulomatous dis ease would be an additional but less likely consideration. 2. Two additional small subcentimeter le sions in the right upper lobe which could be infectious or malignant. 3. Diffuse mild airways thickening. 4. Bilateral upper lobe paraseptal emphy sema. Note: The outside report is not availabl e at the time of this reading. Performing Organization Address City/State/ZIP Code Phon e Number [facility] documented in this encounter Visit Diagnoses Not on filedocumented in this encounter Care Teams State Archivist Relationship Specialty Start Date End Date Hanane Pollock, DRIED FRUIT WASHER PCP - General 01/30/09 02/23/19 [facility] [address] [place] [address] Unknown, Provider, PCP - General 02/24/19 03/01/20 None, Provider PCP - General 03/02/20 03/28/21 Sabrina Jerome DRIED FRUIT WASHER PCP - General 03/29/21 [address] [place] [address] documented as of this encounter
--- OUTSIDE RECORDS SUMMARY | 2022-05-02 11:06 | XMS_ITS | Encounter Summary ---
:1970 Author Organization [facility] Address [address] [place] [address] Care Team Providers Name Role Phone Hanane Pollock NP Primary Care Provider Encounter Details Date Type Department Care Team Description 01/27/2008 Before PRISM Converted [facility] - Efrain Franz, Visit (Sandra) Sandra bauman MD [address] [place] [address] Social History Tobacco Use Types Packs/Day Years Used Date Never Assessed Sex Assigned at Date Recorded Not on file documented as of this encounter Progress Notes Juli Franz MD - 09/19/2009 1657 EST DIVISION OF INFECTIOUS DISEASE - [facility] PROGRESS/FOLLOWUP NOTE - 01/27/2008 DONNELL Calabrese presents for reevaluation of his HIV disease/AIDS. [facility]. Since he was last seen it sounds like in general, he has been doing okay. It does not sound like he has had any acute illnesses since he was last seen. Major issues are that he has had less problems with the nausea that he had been experiencing in the morning. He said hehas only had about one or two episodes of the severe nausea, feeling like he had to vomit. The othernew complaint is that he is having this pinching sensation in his toes, not really describing numbness. It sounds more like pain. Not having any similar symptoms in his hands. His major complaint is that his energy level is just poor. He really gets spent very quickly. He cannot really do much work atall and even has not been fishing and doing his usual activities as much. His appetite has been okay. He really denies any problems with headache. He has seen the concrete products machine operator recently. His visionisstable. He has not had any problems with oral lesions, dysphagia or odynophagia. Really not complaining of increased cough. No shortness of breath. No further problems with chest pain, really not complaining of reflux symptoms. He says he occasionally has kind of a transient ache in kind of the left lateral aspect of his abdomen. Really not associated with eating, moving his bowels or activity per se. Not complaining of abdominal pain. No diarrhea. No urinary complaints. No problems with new rashes,andno new joint complaints. He is still smoking a pack and a half a day, and he says he has been using alcohol very infrequently. He does not think he is depressed. No fevers, chills or night sweats. No problems with any muscle weakness. He says he is getting his medications in regularly, not missing any doses. CURRENT MEDICATIONS 1. Zerit 40 twice a day. 2. Sustiva 600 once a day. 3. Epivir 300 once a day. 4. Viread 300 once a day. 5. Wellbutrin 100 mg twice daily. OBJECTIVE On physical examination he looked well. His weight was 72 kg. Afebrile with a temperature of 98.6, his pulse was 84 and regular. Blood pressure 120/70. Sclerae nonicteric, conjunctivae pink. He had no hemorrhages. Pupils were equal. No oral lesions. Anishhas had his anterior tooth in the frontal on the lower jaw removed, but the gum is healthy and has healed well. No cervical or supraclavicular lymphadenopathy. His lungs were clear to auscultation and percussion. Cardiac exam reveals a regular rhythm. Abdomen: Bowel sounds are present, soft, nontender, no hepatosplenomegaly or masses appreciated. Extre mities: He has the chronic abnormal nails, which really looks like clubbing and they are discolored,but no new findings. He has no edema. He really has noacute rash. He has a rather extensive new tattoo that takes up his whole right upper extremity. His neurologic examination: He does have decreased vibratory sense on the distal foot bilaterally and has a decrease in his Achillesreflexes. His reflexes otherwise are 1+ bilaterally throughout. His motor strength is 5/5. LABORATORY DATA Laboratory studies done in preparation for this visit: In terms of his chemistries, really significant for a mild increase in his alk phos at 131. He did not have an increased anion gap. His AST was 19, his ALT was 56. His calcium 9.6. Glucose normal. Creatinine 0.8. His CBC really was unremarkable. His viral load was undetectable at less than 50 copies. His CD4 count was 508 and 19%. ASSESSMENT AND PLAN 1. HIV positive/AIDS. He has a history of cryptococcal meningitis. He has been on his present regimen for a prolonged period of time. He has done very well with this. He seems to be getting it in regularly, tolerating it well. His viral load remains undetectable. His EZ9wthhm is stable and he has really not had evidence of significant toxicities, except that now with the complaint of pinching in his toes and the finding on neurologic examination. I really do think he has peripheral neuropathy. In the past I thought thiscould be related to his alcohol. It could be related to his HIV or to his Zerit.We had wanted to get him off the Zerit before, but we really did not think that we had significant options. I guess we could stop the Zerit and put him on something like raltegrivir. The other issue would be to switch his Zerit to abacavir. I would not do that without checking an [id number] and we could do that with his next blood work. If he was [id number] negative, we could consider stopping his Zerit, leaving the rest of his regimen the same, and adding abacavir. For now he is really not eager to change his meds, as he thinks he has been quite stable and he is feeling reasonably well and I think that is good. There is no urgency, but I do think he may be a little bit more symptomatic in terms of his neuropathy. 2. Depression. He does not think he is depressed, but he is on Wellbutrin and seems to be toleratingthis well. 3. Tobacco use. He is really not ready to quit. I had hoped the Wellbutrin would help, but I think he is not really motivated to quit at the present time, but hopefully he will be in the future. 4. Alcohol use. I did stress again the need for him to limit his alcohol intake because of his underlying chronic hepatitis B and hepatitis C. I sounds like he really has decreased the frequency of hisalcohol use. 5. Chronic hepatitis. He has both hep C and hep B. He is on Viread and Epivir, in terms of his hep Band we have not felt that he was a candidate for treatment of his hepatitis C, and he really was notinterested in this in the past, but we will address this again in the future. 6. Episodes of chest pain. This has since resolved. 7. Reflux. This seems to be better. He is not having further problems with nausea. 8. Followup. Would continue his present regimen. Would have him follow up with me in the comprehensive care clinic in about four months. He can have blood work done prior to that visit with CBC, CD4 count, ultrasensitive viral load, liver panel, creatinine and a CPK. In addition, will get [id number] at that time, and then at the time of his next visit may consider changing his antiretroviralregimen. 9. Alopecia - forgot to mention that he still has the areas of alopecia on the scalp without evidence of progression. Signed by Juli Franz MD 03/01/2008 14:30 Juli Franz MD - Juli Franz MD - DD Job ID: [id number] Doc ID: [id number] cc: Hanane Pollock NP documented in this encounter Plan of Treatment Not on filedocumented as of this encounter Visit Diagnoses Not on filedocumented in this encounter Care Teams Curve Saw Operator Relationship Specialty Start Date End Date Hanane Pollock NP PCP - General 01/30/09 02/23/19 [facility] [address] [place] [address] documented as of this encounter
--- OUTSIDE RECORDS SUMMARY | 2022-05-02 11:06 | XMS_ITS | Encounter Summary ---
:1970 Author Organization [facility] Address [address] [place] [address] Care Team Providers Name Role Phone Hanane Pollock NP Primary Care Provider Encounter Details Date Type Department Care Team Description 09/30/2008 Before PRISM Converted [facility] - Efrain Franz, Visit (Sandra) Sandra bauman MD [address] [place] [address] Social History Tobacco Use Types Packs/Day Years Used Date Never Assessed Sex Assigned at Date Recorded Not on file documented as of this encounter Progress Notes Juli Franz MD - 08/16/2009 0245 EST DIVISION OF INFECTIOUS DISEASE - [facility] PROGRESS/FOLLOWUP NOTE - 09/30/2008 DONNELL Calabrese presents for reevaluation of his HIV disease and his hepatitis B and C. [facility]. Since he was last seen, it sounds like he has done well. He has had no acute illnesses. He has followed up with the video specialist here in [facility]. I have corresponded with the video specialist on more than one occasion. There was some tentative plan to put the patient on thalidomide. I was concerned about the potential for worsening liver function on this drug and did not feel that that was a good option, so he has had no further treatment for his alopecia. The only acute issue is that he has had some blurriness of his vision in the right eye over thepast month and a half and he was seen by ophthalmology today. It sounds like they thought the irritation was more superficial, sounds like maybe on the cornea, and he was actually scheduled to go back and be seen again in a month. He is not having any pain in the eye but he does note blurry vision. He says his energy level has been okay. His appetite has been good. He says he thinks he had a sinusinfection although he did not seek any medical attention and has not had any antibiotics. It sounds like he just had a lot of rhinorrhea and congestion, and that has since improved. He has not had any fevers or chills. He has what he calls nap sweats. He takes a nap during the day. He has had some sweating. He is not waking up with any sweats at night. He has vomited about twice since he was last seen. He really is not complaining of particular abdominal pain. Occasionally, he has some left upper quadrant fullness or tenderness. Not necessarily related to eating. He did have some bright red blood per rectum, and did have a colonoscopy done recently by Dr Dean. Itsounds like there was an irregular area in the rectum which was biopsied and was called a hyperplastic polyp. He has not noted any bright red blood in his vomitus. He says that he is not really having headaches. Does say that he has a decreased sense of smell, but this is not new. This has been a long-term issue. No change in hishearing. He has not had any oral lesions, dysphagia or odynophagia. He is not complaining of cough, chest pain or shortness of breath. No problems with diarrhea. No genitourinary complaints. He says that he has a pinching sensation in the first digit of both of his feet, but not really complaining of numbness in the feet. Not really complaining of pain. He is smoking about a pack a day which is less than he has done before. He says he has about a totalof three to six beers a week. Sometimes some mixed drinks. Does not sound like he is having multiplealcoholic drinks at a single sitting. He says he is getting his medications in regularly. Not missing any doses. CURRENT MEDICATIONS 1. Zerit 40 mg twice a day. 2. Sustiva 600 once a day. 3. Epivir 300 once a day. 4. Viread 300 once a day. 5. Wellbutrin 100 mg twice daily. OBJECTIVE On physical examination he looks well. His weight was 75 kilos. He was afebrile with a temperature of 97.6. His heart rate was 80 and regular. Blood pressure 128/80. Alert and appropriate, nontoxic. Kenneth have significant alopecia and just really has a tuft of hair at the superior aspect of his scalp. He has shaved the lateral sides where he had a lot of patchy alopecia. Pupils equal. Sclerae nonicteric. Conjunctivae pink. He does have what looks like a conjunctival hemorrhage on the left lower lid. He has no oral lesions. No cervical or supraclavicular lymphadenopathy. His lungs are clear to auscultation and percussion. He has no spinal or CVA tenderness. Cardiac exam reveals a regular rhythm without murmurs, rubs or gallops. Abdominal exam: Bowel sounds are present, soft, nontender. His liveris not enlarged by palpation, and I cannot palpatehis spleen. He has no abdominal masses. He has no lower extremity edema. 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 He does have onychomycosis of his toenails, but does not really have tinea. His pulses are 2+ bilaterally. He has decreased vibratory sense, mostly on the right distal foot. He has decreased sharp sensation from the midfoot distally bilaterally. He has an intact Achilles reflex on the left. I could not appreciate an Achilles reflex on the right. His patellar reflexes are both decreased but are present with enhancement maneuvers. His reflexes are decreased in his upper extremities bilaterally. LABORATORY DATA Laboratory studies done in preparation for this visit. His CBC really was unremarkable. Chemistries:Hisglucose was normal. His creatinine was 1.1. His transaminases were normal. His lipid panel reallywas excellent. His CD4 count was 484 and 19% and his viral load was undetectable. His surg-path again hyperplastic polyp from the rectum, and in the colon he had a tiny leiomyoma. I have the report from the colonoscopy. There is no mention of any hemorrhoids on exam. ASSESSMENT AND PLAN 1. HIV positive/AIDS. He has had history of Cryptococcal meningitis. He seems to be doing quite wellon his present regimen. His viral load: Although he has had blips before, his viral load is undetectable. His CD4 count is really quite stable. His transaminases have not flared on this regimen. Would plan to continue this regimen. We talked a little bit about getting him offthe Zerit. When his viral load was up in the past, we had made a tentative plan to get him off of this. Now that his viral loadis again undetectable, I am reluctant to change anything. He does have a little bit of neuropathy onexam, but he really has minimal symptoms and he has no other body changes, so would plan to continue his present regimen. He would be due to have laboratory studies and a followup with me in the comprehensive care clinic in about four months. 2. Depression. Well controlled on his Wellbutrin. 3. Tobacco use. We discussed tobacco cessation. It does not sound like he is motivated to do that atthe present time, but did encourage him to reconsider this. 4. Alcohol use. He continues to use alcohol, although much less than he has in the past. I encouraged him to limit his alcohol use because of ongoing hepatitis. 5. Chronic hepatitis B and hepatitis C. He had a biopsy remotely. He did have evidence of early cirrhosis. He seems to have reasonable synthetic function. He has had no hemorrhoids on his recent exam Viral not think he is a candidate for endoscopy screening for varices at the present time, but will check an alpha fetoprotein with his future labs and would have a low threshold to obtain an ultrasound as a screen for hepatocellular carcinoma. 6. Blurry vision in the right eye and he is being followed and evaluated by ophthalmology. 7. Alopecia. I think that the risk of adverse effect with thalidomide outweighs the benefit for his alopecia and he seems to be happy not to try this intervention at the present time. Signed by Juli Franz MD 10/21/2008 06:49 Juli Franz MD - Juli Franz MD - REBEKA Job ID: [id number] Doc ID: [id number] cc: Hanane Pollock NP [facility]* documented in this encounter Plan of Treatment Not on filedocumented as of this encounter Visit Diagnoses Not on filedocumented in this encounter Care Teams Process Machine Operator Relationship Specialty Start Date End Date Hanane Pollock NP PCP - General 01/30/09 02/23/19 [facility] [address] [place] [address] documented as of this encounter
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
--- OUTSIDE RECORDS SUMMARY | 2022-05-02 11:06 | XMS_ITS | Encounter Summary ---
:1970 Author Organization [facility] Address [address] [place] [address] Care Team Providers Name Role Phone Hanane Pollock NP Primary Care Provider Encounter Details Date Type Department Care Team Description 05/05/2010 Orders Only [facility] Juli Franz HCV infe ction; Infectious Disease - [place] Chronic active viral hepatitis B (CMS-HCC); [facility] Human immunodeficiency virus (HIV) disease; [address] [facility] Alcohol use; [place] [address] Encounter for long-term (cur rent) use of other medications [phone] Social History Tobacco Use Types Packs/Day Years Used Date Never Assessed Sex Assigned at Date Recorded Not on file documented as of this encounter Plan of Treatment Not on filedocumented as of this encounter Procedures Procedure Name Priority Date/Time Associated Diagnosis Comme nts IR U/S DRAINAGE Routine 05/15/2010 14:10 HCV infection Results for this EDT Chronic active viral procedu re are in hepatitis B (CMS -HCC) the results Human immunodeficiency secti on. virus (HIV) dise ase Alcohol use documented in this encounter Results IR U/S GUIDED NEEDLE BIOPSY AND DRAINAGE (05/15/2010 14:10 EDT) Anatomical Region Laterality Modality Other Specimen [facility]arrative [facility] - 05/16/2010 10:10 EDT Ultrasound-guided liver biopsy, May 15, 2010 at 1308 hours. History: HIV. Hepatitis B. Hepatitis C. Please perform liver biopsy for histology prior to treatment for hep atitis C. Technique: Informed consent was obtained after the risks and benefits of the procedure were discussed with the patient. Moderate sedation was provided with intravenous Versed and fentanyl while continuously monitoring the patients blood pressure, heart rate, respiratory rate and pulse oxygenation. The patient's right upper quadrant was s terilely prepped and draped. Lidocaine 1% was administered to anesthe tize the skin and soft tissues. Using ultrasound guidance, via a intercostal approach, a 19-gauge Cook coaxial needle was advance d into the right lobe of the liver. A total of 3 20-gauge core biopsy samples were obtained. The needle was removed and a sterile dressin g was applied. The patient tolerated procedure well and there were no immediate complications. Impression: 1. Successful ultrasound guided percutan eous liver biopsy. Dr. Kirkpatrick was present for the entire p rocedure. I have personally reviewed the images an d the above interpretation and agree with the findings. Procedure Note Scriver, Morales Zuniga MD - 05/16/2010 Ultrasound-guided liver biopsy, May 15, 2010 at 1308 hours. History: HIV. Hepatitis B. Hepatitis C. Please perform liver biopsy for histology prior to treatment for hep atitis C. Technique: Informed consent was obtained after the risks and benefits of the procedure were discussed with the patient. Moderate sedation was provided with intravenous Versed and fentanyl while continuously monitoring the patients blood pressure, heart rate, respiratory rate and pulse oxygenation. The patient's right upper quadrant was s terilely prepped and draped. Lidocaine 1% was administered to anesthe tize the skin and soft tissues. Using ultrasound guidance, via a intercostal approach, a 19-gauge Cook coaxial needle was advance d into the right lobe of the liver. A total of 3 20-gauge core biopsy samples were obtained. The needle was removed and a sterile dressin g was applied. The patient tolerated procedure well and there were no immediate complications. Impression: 1. Successful ultrasound guided percutan eous liver biopsy. Dr. Kirkpatrick was present for the entire p rocedure. I have personally reviewed the images an d the above interpretation and agree with the findings. Performing Organization Address City/State/ZIP Code Phon e Number [facility] documented in this encounter Visit Diagnoses Diagnosis HCV infection Unspecified viral hepatitis C without he patic coma Chronic active viral hepatitis B (HCC) Viral hepatitis B without mention of hep atic coma, chronic, without mention of hepatitis delta Human immunodeficiency virus (HIV) disea se ([facility]) ([facility]) Human immunodeficiency virus [HIV] disea se Alcohol use Reserved for inherently not codable conc epts WITHOUT codable children Encounter for long-term (current) use of other medications documented in this encounter Care Teams Veterinarian Relationship Specialty Start Date End Date Hanane Pollock NP PCP - General 01/30/09 02/23/19 [facility] [address] [place] [address] documented as of this encounter
--- OUTSIDE RECORDS SUMMARY | 2022-05-02 11:06 | XMS_ITS | Encounter Summary ---
:1970 Author Organization [facility] Address [address] [place] [address] Care Team Providers Name Role Phone Hanane Pollock PLATE FURNACE OPERATOR Primary Care Provider Encounter Details Date Type Department Care Team Description 05/05/2010 Orders Only [facility] Juli Franz, Chron ic hepatitis C without mention of hepatic coma; Infectious Disease - [place] AIDS (a cquired immune deficiency syndrome) ([facility]-HCC); [facility] Chronic active viral hepatit is B ([facility]-HCC) [address], [place] [id number] Social History Tobacco Use Types Packs/Day Years Used Date Never Assessed Sex Assigned at Date Recorded Not on file documented as of this encounter Plan of Treatment Not on filedocumented as of this encounter Visit Diagnoses Diagnosis Chronic hepatitis C without mention of h epatic coma AIDS (acquired immune deficiency syndrom e) ([facility]) (HCC) Human immunodeficiency virus [HIV] disea se Chronic active viral hepatitis B (HCC) Viral hepatitis B without mention of hep atic coma, chronic, without mention of hepatitis delta documented in this encounter Care Teams Cell Cleaner Relationship Specialty Start Date End Date Hanane Pollock, SOM PCP - General 01/30/09 02/23/19 [facility] [address] [place], [place] [id number] documented as of this encounter
--- OUTSIDE RECORDS SUMMARY | 2022-05-02 11:06 | XMS_ITS | Encounter Summary ---
:1970 Author Organization [facility] Address [address] [place] [address] Care Team Providers Name Role Phone Hanane Pollock NP Primary Care Provider Encounter Details Date Type Department Care Team Description 05/18/2008 Before PRISM Converted [facility] - Efrain Franz, Visit (Sandra) Sandra bauman MD [address] [place] [address] Social History Tobacco Use Types Packs/Day Years Used Date Never Assessed Sex Assigned at Date Recorded Not on file documented as of this encounter Progress Notes Juli Franz MD - 02/04/2009 1436 EDT DIVISION OF INFECTIOUS DISEASE - [facility] PROGRESS/FOLLOWUP NOTE - 05/18/2008 DONNELL Calabrese presents for reevaluation of his HIV disease. He was last seen by me in the [facility] on January 27, 2008. Since he was last seen, it sounds like he has been doing fairly well. He has not had any acute illnesses thatrequired visiting a physician. He said that maybe about a week or so ago, he thought he was going to get ill. He said a lot of people around him have been sick; it sounds like mostly with respiratory illness. He did feel that the glands in his neck were swollen, although he was not having sore throat or any respiratory symptoms at that time. Also, maybe a bit of swelling in the lymph nodes in his axilla bilaterally, but that seemed to improve without any specific intervention and he really has had no other acute complaints. He says his energy level is still pretty poor and he really cannot do much activity for more than a couple of hours without getting completely pooped out. He especially complains of issues with his arms especially trying to hold his arms up to do things. He develops a lot of numbness and weakness in his arms; really not having the same complaints so much in his legs. REVIEW OF SYSTEMS His appetite has been normal. He has not had any problems with fevers, chills, or night sweats. He has had occasional headaches, but really nothing significant. He did see ophthalmology and said that his ocular findings were stable and he really has not had consistent blurriness in terms of his vision. He says he does not feel depressed. He has not had any oral lesions, dysphagia or odynophagia. He does say that he has a sense that he is not taking as deep breaths and does say that he does have worsening shortness of breath with exertion, but no chest pain. He has not noted any increased cough. He is still smoking about a pack and a half to two packs of cigarettes a day. He is using less than a six-pack of alcohol per week. He has had some crampyabdominal pain, really just today and actually vomited today, but he attributes it to eating something specific last night. It really does not sound like he has had chronic problems with abdominal pain or vomiting.l He has not had any diarrhea and is moving his bowels regularly. No genitourinary complaints. No new rashes. Again, the numbness in the arms and this burning sensation is really quite positional and occurs only with raising his arms. He denies any problems with neck pain and he has some neuropathy symptoms in his feet mostly a pinching sensation in his feet. He says he has been getting his medications in regularly and not missing any doses. CURRENT MEDICATIONS 1. Zerit 40 mg twice a day. 2. Sustiva 600 once a day. 3. Epivir 300 once a day. 4. Viread 300 once a day. 5. Wellbutrin 100 mg twice daily. OBJECTIVE On physical examination, his weight was stable at 72.2 kg. Blood pressure 120/70. His heart rate was84 and regular. He has patchy alopecia of the scalp, which seems a bit worse again. He has an erythematous area in the right occipital area just at the hairline with some small papules and some erythema, but the area is nontender and there are no vesicles or pustules. His pupils are equal, sclerae nonicteric, conjunctivae pink. He has no oral lesions. No cervical or supraclavicular lymphadenopathy. He has no axillary lymphadenopathy. His lungs are clear to auscultation and percussion. His neck is supple. His skin is significant for small pink macules on his posterior trunk, all about a centimeter in diameter, some with fine central clearing but no real scale. It is consistent with a cutaneous fungal disease. Really no other rash. Cardiac exam reveals a regular rhythm without murmurs, rubs, or gallops. Abdomen: Bowel sounds are present. Soft; he has some tenderness on palpation in the left lower quadrant. I cannot appreciate any mass there. His spleen is not enlarged by palpation. His liver is not enlarged by palpation. Extremities: No edema. Neurologic examination: Nonfocal except his reflexesare decreased bilaterally and present only with enhancement maneuver. LABORATORY DATA He had an [id number] screen, which was negative; no HLA-B5701 was identified. He had chemistries; histransaminases were normal. Really, his chemistries were only remarkable for a glucose of 131, but this was not done in the fasting state. CBC significant for a hemoglobin of 17, a normal white count, and a normal platelet count. His CD4 count was 622 and 22% and his viral load was just detectable at 314 copies. ASSESSMENT AND PLAN 1. HIV positive/AIDS. 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 He has been on his present regimen since 2002. He has had a blip before back about a year ago when his viral load was justabout 200. His subsequent viral loads were all undetectable and we thought that perhaps the blip was related to the steroid injections that he was having intra-articularly. I have to say I do not have a real explanation, although he has had some vague symptoms to suggest he was having some acute illness recently and I guess that could account for the blip in his viral load. I think we are going to need to keepa close eye on this. We had kind of thought about changing his medications and that is why rosette Donato [id number]. We wnated to get him off the Zerit and get him on an all once a day regimen with abacavir, but I do not want to make any changes especially just with one medication exchange if his viral load is detectable. So, would plan to repeat hisviral load in about one month. If his viral load is higher or if is high enough, we can try to genotypic resistance testing. We have not documented resistance in the past, but if his viral load is not high enough for resistance, but remains detectable,I think we need to revise his regimen and I will need to review his old antiretroviral therapy in preparation for this. He really has had limited regimens in the past and so I do think he will have a lot of options. When we made this regimen for him in the past he had fewer options available, but now with raltegravir and some of the newer protease inhibitors I think he will have more options. He did not tolerate the boosted Crixivan regimen in the past, but he has really not been on other protease inhibitors, but I suspect there will be a bit of trial and error especially in view of his underlying chronichepatitis B and hepatitis C. He is at high risk for a flare of his liver with new drugs. 2. Depression. Under good control on his Wellbutrin. 3. Tobacco use. He does seem motivated to try to quit. He does not want to try Chantix again. He hasused the patch in the past, but it sounds like on further questioning he may benefit more from lozenges or the gum and we will look into see if we can get this covered for him. 4. Alcohol use. He knows he needs to limit this and it sounds like he is drinking less, although hasnot discontinued this completely. 5. Chronic hepatitis B and hepatitis C. No matter what we do in terms of his antiretrovirals, we will keep him on his Viread and Epivir. In the past when we have changed his medications he has had marked flare in terms of his hepatitis B. 6. Chest pain. No further episodes of this. 7. Shortness of breath. Again, he continues to smoke and is suspect his shortness of breath is really related to chronic obstructive pulmonary disease and I suspect that is driving his elevated hemoglobin in addition. 8. Reflux. This seems to be better and I do not think we need to be adding anything for this at the present time. Signed by Juli Franz MD 06/08/2008 15:51 Juli Franz MD - Juli Franz MD - LUIS ARMANDO Job ID: [id number] Doc ID: [id number] cc: [facility] Hanane Pollock NP *[facility] documented in this encounter Plan of Treatment Not on filedocumented as of this encounter Visit Diagnoses Not on filedocumented in this encounter Care Teams Body Shop Manager Relationship Specialty Start Date End Date Hanane Pollock, SOM PCP - General 01/30/09 02/23/19 [facility] [address] [place] [address] documented as of this encounter
--- OUTSIDE RECORDS SUMMARY | 2022-05-02 11:06 | XMS_ITS | Encounter Summary ---
:1970 Author Organization [facility] Address [address] [place] [address] Care Team Providers Name Role Phone Hanane Pollock NP Primary Care Provider Encounter Details Date Type Department Care Team Description 01/04/2005 Before PRISM Converted [facility]rain [facility] Sandra bauman MD [address] [place] [address] Social History Tobacco Use Types Packs/Day Years Used Date Never Assessed Sex Assigned at Date Recorded Not on file documented as of this encounter Progress Notes Juli Franz MD - 09/14/2009 0915 EST DIVISION OF INFECTIOUS DISEASE [facility] PROGRESS/FOLLOWUP NOTE - 01/04/2005 ([facility]) SUBJECTIVE: Guanakito presents for reevaluation of his HIV disease/AIDS. He has chronic hepatitis C and chronic hepatitis B. I last saw him in the [facility] on 10/10/04. Since he was last seen, it sounds like he has been doing well. He has not had any acute illnesses. He is still having difficulty with his left shoulder which is painful, and he complains of stiffness and decreased range of motion. The shoulder is okay at rest, but the symptoms are definitely worse with activity. He is having a lot of achy pain in the muscle and the joint more proximally, as well as some occasional pain in the muscle of the distal forearm. No numbness or tingling. He has not noticed any weakness. He denies any problems with neck pain. Hisenergy level in general has been good. His appetite has been good. He is having occasional headaches, but it sounds like this has not really been an issue. He has intermittent blurry vision in the right eye. He does not remember when he saw ophthalmology last, but it sounds likehe is probably due for a visit. No change in his hearing. No oral lesions, dysphagia or odynophagia.No problems with worsening cough or shortness of breath. No chest pain. He does think he had some increased cough during a couple of days when the pollen was very heavy, but that seems to have resolvedquite quickly. No abdominal pain. He has vomited a couple of times, mostly in the morning when he has some productive cough upon rising. No nausea. No change in his bowels or diarrhea.No difficulty urinating. He had not had rash despite the fact that he has been out in the sun. He has occasional numbness in his hands and this is equal bilaterally. No fevers, chills or night sweats. No numbness in hisfeet. He is smoking 1?? packs a day. He says he thinks he is using less alcohol. He has used one fifth andthen about two-thirds of a second fifth of bourbon since he was last seen. Medications: He is on Sustiva 600 q.h.s., Zerit 40 twice daily, Dapsone 100 once a day, Diflucan 200once a day, Epivir 300 once a day, tenofovir 300 once a day. OBJECTIVE: On physical examination, his weight was down slightly at 69.3 kg, blood pressure 122/80. He looked well, nontoxic and in no acute distress. Neck was supple. Pupils were equal and reactive to light. Sclerae nonicteric. He had slight injection of his conjunctivae bilaterally. He has no oral lesions. No cervical or supraclavicular lymphadenopathy. On funduscopic examination, discs were sharp bilaterally; vessels were normal. I could not appreciate any exudate and there was no haziness in the vitreus bilaterally. EOMI. He has some asymmetry of his face, which is not new, but cranial nervesappeared to be intact. He had decreased breath sounds bilaterally with somewhat poor air movement, but no wheezes,rales or rhonchi. Cardiac exam revealed a regular rhythm without murmurs, rubs or gallops. Bowel sounds are present. Abdomen is soft, nontender. No hepatosplenomegaly, no masses appreciated. Extremities are without edema. On physical examination of the left shoulder, he seems to have full range of gino on. I cannot appreciate any external swelling. He does have tenderness over the insertion of the biceps tendon on the left, but has some tenderness in the same area on the right. 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 No cyanosis. No acute rash. On neurologic examination, motor strength appearsto be 5/5 bilaterally throughout. Reflexes are decreased bilaterally, 1+ in the upper extremities bilaterally. With enhancement maneuvers, he has 1+ patellar reflexes bilaterally and his left Achilles is 1+. I was unable to elicit a right Achilles tendonreflex. He has decreased vibratory sense on the distal foot bilaterally, but sharp sensation appears to be intact. Laboratory studies done in preparation for this visit include ALT minimally elevated at 66 with a normal AST a and a normal alk phos. His anion gap was just 12. He had normal glucose, normal creatinine. His viral load was undetectable at less than 50 copies. ASSESSMENT/PLAN: 1. HIV positive/AIDS. He is S/P cryptococcal meningitis. He appears to be taking his medications regularly. He is having a good response in terms of undetectable viral load and seems to be tolerating the medications fairly well. Would plan to continue him on his present antiretroviral regimen of Sustiva, Zerit, Epivir and tenofovir and would have him seen in followup in three months. Prior to that vis it, he should have laboratory studies done with electrolytes, liver panel, creatinine, CBC, CD4 count and ultrasensitive viral load. 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 His last CD4 count was just over 200, and I would plan to continue him on his fluconazole. 3. Prophylaxis. Would continue him on his Dapsone for now, but if his CD4 count remains consistentlyabove 200, would consider discontinuation of his Dapsone. 4. Chronic hepatitis C and hepatitis B. His transaminases seem to be remarkably stable on his present regimen. I did encourage him to decrease his alcohol use as his biopsy already showed evidence of significant fibrosis. 5. Lip lesion. This has not recurred. 6. Tobacco use. We discussed this again. He has nicotine patches at home, but he is still not ready to discontinue his tobacco use. I encouraged him to consider this. 7. Rash. This has not flared yet despite his sun exposure, but he is wearing sunblock pretty consistently. 8. Visual symptoms. I cannot really see anything on funduscopic examination, but will have him go back and see ophthalmology for a follow-up appointment. 9. Left upper extremity discomfort. He had plain x-rays that were unremarkable. I would like to refer him to sports medicine and have them evaluate him before we do any further diagnostic studies, suchas an MRI of the shoulder. 10. Safer sex. Discussed safer sex with the patient. He and his partner have not been practicing safer sex. His partner is also HIV positive, but we did discuss the need to practice safer sex so as notto transmit resistant virus. Signed by Juli Franz MD 02/06/2005 13:59 Sandy Ortega MD Juli Franz MD D: - Juli Franz MD P - Job ID: Document ID: [id number] cc: SOM Pollock, [facility], [facility], [address], [place] [address]* documented in this encounter Plan of Treatment Not on filedocumented as of this encounter Visit Diagnoses Not on filedocumented in this encounter Care Teams Automatic Toe Laster Relationship Specialty Start Date End Date Hanane Pollock NP PCP - General 01/30/09 02/23/19 [facility] [address] [place], [place] [address] documented as of this encounter
--- OUTSIDE RECORDS SUMMARY | 2022-05-02 11:06 | XMS_ITS | Encounter Summary ---
:1970 Author Organization [facility] Address [address] [place] [address] Care Team Providers Name Role Phone Unavailable Primary Care Provider Unavailable Encounter Details Date Type Department Care Team Description 12/01/2002 Hospital Encounter [facility] - Akhil Chapman, Ish MD [address] [place] [address] Social History Tobacco Use Types Packs/Day Years Used Date Never Assessed Sex Assigned at Date Recorded Not on file documented as of this encounter Discharge Disposition Disposition Code Departure Means Destination Auto Discharge documented in this encounter Plan of Treatment Not on filedocumented as of this encounter Visit Diagnoses Not on filedocumented in this encounter
--- OUTSIDE RECORDS SUMMARY | 2022-05-02 11:06 | XMS_ITS | Encounter Summary ---
:1970 Author Organization [facility] Address [address] [place] [address] Care Team Providers Name Role Phone Hanane Mccormack NP Primary Care Provider Encounter Details Date Type Department Care Team Description 12/01/2002 Results Only [facility] Alissa Mas Radiology - Main [facility] priscilla Payne MD [address] [facility] [address] [place] [address] [facility] [phone] [address] [place] [address] (Wo rk) Social History Tobacco Use Types Packs/Day Years Used Date Never Assessed Sex Assigned at Date Recorded Not on file documented as of this encounter Plan of Treatment Not on filedocumented as of this encounter Procedures Procedure Name Priority Date/Time Associated Diagnosis Comme nts SURGICAL PATHOLOGY Routine 12/01/2002 0:00 EDT Re sults for this procedure are i n the results section. documented in this encounter Results SURGICAL PATHOLOGY (12/01/2002 0:00 EDT) Pathology Report: SURGICAL PATHOLOGY REPORT BRAD REHMAN Reports generated via electronic interface contain lui ginal data; LAB however they are lacking the format of the original re port. Caution should be taken when reading/interpreting unfo rmatted reports. Name: ? KALEB CEDILLO ? Accession #: ? [id number] ? : ? 1970 (Age: 32) ??M ? Collect Date: ? 12/01/2002 ? Location: ? RAD ? Receive Date: ? 12/02/19 03 ? Provider: ALISSA MAS MD Copy to: NEW MCCORMACK TUG BOAT ENGINEER ? Addendum ? Date Ordered: ? 12/09/2002 ? Status: Si gned Out ? Date Complete: ? 12/09/2002 ? By: Roseanne Terrazas ? Date Reported: ? 12/09/2002 ? Addendum Comment ? Additional immunopero xidase studies performed on the liver biopsy specimen show positivity for HBcAg (p olyclonal, Dako) and HBsAg (3E71, Dako), indicating active hepatitis B. This appears to coexist with the c linically diagnosed hepatitis C and might explai n the significant inflammatory activity. ??However, a superimposed adverse drug effect may show identical hi stologic features. Clinical correlation is essential. ??(Dr. oTmlinson)/[facility] Document reviewed and electronically signed by: ? Robel Tomlinson MD ? Report date: 12/09/2002 By the signature above, the attending physician certif ies that he/she has personally conducted a gross and/or microscopic examin ation of the described specimens and rendered or confirmed the above diagnosi s. Final Pathologic Diagnosis: ? Liver, right lobe, core biopsy: 1. ?Chronic hep atitis, consistent with Hepatitis C infection. ??See comment. ? - Moderate inflammatory activity (grade 3 of 0- 4 scale). - Bridging fibrosis (stage 3 of 0-4 scale). - No evidence of stainable iron deposit. Comment: ? The liver core biopsy showed dense portal chronic inflammation with focal involvement of the acini. ??There is marked portal exp ansion and bridging fibrosis, which is highlighted on the tr ichrome stained slide. ??Focal nodular architecture are present but not diffuse in the specimen. ??There is no stainable iron on the iron stained slide. ??(Dr. Brizuela)/[facility] Document reviewed and electronically signed by: Coty Coleman MD Report ??Date: 12/03/2002 15:37 By the signature above, the attending physician certif ies that he/she has personally conducted a gross and/or microscopic examin ation of the described specimens and rendered or confirmed the above diagnosi s. Specimen(s) Received: ? 2 core samples, Rt lobe liver Clinical History: ? AIDS/HIV, chronic Hep B & C, marked increase in transaminases after stopping one regimen of anti retroviral which contained 3TC in Jun. ??Started new regimen in Aug. Gross Description: ? Received in formalin labelled Snide are two red-brown, cylindrical soft tissues measuring 1.3 and 1.6 cm in length, each with a diameter of 0.1 cm. Iron and trichrome stains are ordered. ? ?The specimen is entirely submitted in one cassette. ??(Brando Dior)/[facility] End of Report Specimen Performing Organization Address City/State/ZIP Code Phon e Number [facility] [address] [place] [address] [facility] [address] [place] [address] documented in this encounter Visit Diagnoses Not on filedocumented in this encounter Care Teams Bacteriologist Medical Relationship Specialty Start Date End Date Hanane Mccormack NP PCP - General 01/30/09 02/23/19 [facility] [address] [place], [place] [id number] documented as of this encounter
--- OUTSIDE RECORDS SUMMARY | 2022-05-02 11:06 | XMS_ITS | Encounter Summary ---
:1970 Author Organization [facility] Address [address] [place] [address] Care Team Providers Name Role Phone Hanane Pollock NP Primary Care Provider Encounter Details Date Type Department Care Team Description 01/09/2007 Before PRISM Converted [facility] - Efrain Franz, Visit (Sandra) Sandra bauman MD [address] [place] [address] Social History Tobacco Use Types Packs/Day Years Used Date Never Assessed Sex Assigned at Date Recorded Not on file documented as of this encounter Progress Notes Juli Franz MD - 09/19/2009 1705 EST DIVISION OF INFECTIOUS DISEASE - [facility] PROGRESS/FOLLOWUP NOTE - 01/09/2007 DONNELL Calabrese presents for reevaluation of his HIV disease/AIDS. [facility]. Since he was last seen he has been dealing with the dentist. He did develop an abscesses tooth and he was put on some antibiotics. It sounds like he was taking clindamycin. He was supposed to take if four times a day. He said he was supposed to take it for a month. I actually did talk to the pharmacy and they had only given him aseven day supply. It sounds like he took it for a couple of weeks in November then he was off of it for a period of time and then refilled it againin early December. The major problem is that he is having problems with a feeling of bloating, some cramping and some diarrhea. He definitely thinks the diarrhea was better when he was off the clindamycin or when he decreased the frequency of the dosing to twice a day as opposed to four time a day. In general he is justnot feeling as well. His says his energy level has been down markedly for the last two months. He has not really been able to work for more than an hour or two. Just feels weak in general. It does not sound like he has been having any problems with fevers, chills or night sweats. Just kind of complains of generalized weakness. He says his appetite has been okay. He has still had some problems with vom iting, really only associated with coughing mostly in the morning. But he is concerned about his digestion in that when he does vomit in the morning he also vomits up undigested food from the night before. In general he does not say the abdominal symptoms are worse after eating, and in fact he is having them today and he has not eaten anything yet. He has had some occasional mild headaches, really nothing of significance. He has not noted any change in his vision. He just says he has blurry vision bilaterally but this is without change and just the fact that he needs glasses, but he does plan to have an ophthalmology followup in the near future. He had a recent painful oral ulcer, like a canker sore, which resolved. It lasted about a week. No dysphagia or odynophagia. He is still smoking, although smoking a bit less. He is just not quite as interested and he does think it aggravates his gastrointestinal symptoms. He denies problems with increased cough but he has a persistent cough productive of sputum. No chest pain and really not complaining of shortness of breath. He does think a lot of hisrespiratory symptoms are related to the fact that he is having a lot more nasal congestion and postnasal drip. He does think they are allergy type symptoms. His urine occasionally is tea colored, but not consistently. He is not having any urinary symptoms. The diarrhea as mentioned above. No problems with new rashes. He has not had any further alopecia, but he has not seen any improvement. He did notfollow up with the serging machine operator automatic yet and he denies any new neuromuscular complaints. His right shoulder is doing quite well since he had had his steroid injection. He said he has missed about two doses of meds since he was last seen. CURRENT MEDICATIONS He remains on: 1. Zerit 40 b.i.d. 2. Dapsone 100 a day. 3. Viread 300 once a day. 4. Sustiva 600 once a day. 5. Epivir 300mg po q day SOCIAL HISTORY I forgot to mention that he says he has not used any alcohol since he has been on the antibiotics. OBJECTIVE On physical examination he looks thin, however, his weight is really stable at 70.5 kg, nontoxic, noacute distress, alert and appropriate. He has the areas of alopecia in his scalp although I do not see any new areas. Sclerae nonicteric. Conjunctivae pink without hemorrhages. He has no oral lesions. He has no cervical or supraclavicular lymphadenopathy. His lungs were clear to auscultation and percussion. Cardiac exam revealed a regular rhythm without murmurs, rubs or gallops. Abdominal exam: Bowelsounds are present, soft, nontender. Cannot appreciate any hepatosplenomegaly. No masses. Extremities are without edema. He has chronic clubbing and sclerotic nails which is without change. Neurologic examination: Reflexes are decreased bilaterally. Motor strength is 5/5 bilaterally. ASSESSMENT AND PLAN 1. Generalized fatigue over about two months. Hard to know if this is related to the dental abscess and the use of antibiotics or if this was another issue. I think we need to remove the dental issues and antibiotics as a component of this. His appetite has been okay. He is not losing weight but he isjust not feeling as good. I really think there are multiple possible explanations but I did ask him to stop the clindamycin today. We will see if he does better off of the antibiotics. If he is still having marked fatigue, then may requirefurther evaluation. The laboratory studies he had in preparation for this visit are all normal and there is really no explanation based on those labs. He is not anemic. His calcium is normal. Renal function is normal. His liver tests are normal. He does have known cirrhosis and I guess we could be dealing with progressive liver disease. There is nothing on the labs to suggest that, but he does not necessarily have to have abnormal liver tests. He does not have any other specific complaints to suggest another process. There is nothing to suggest an occult infection. Obviously I am worried about the recent dental work and could he have endocarditis, but there is really nothing on exam, and he has not been having any fever. I guess we could be dealing with a metabolic issue. We have never checked his thyroid I guess that would be something to consider. The other thing would be drug toxicity in terms of lactic acidosis syndrome. Why he would develop it now wouldnot be clear to me but still would be in the differential. For now I would hold off on further diagnostic studies, wait to see how he does off of the clindamycin. 2. Diarrhea. Again he has been on clindamycin on and off over the past six weeks or so. I am very concerned about C diff. He is really saying that the diarrhea is better off of the antibiotics, but we are going to stop the clindamycin altogether. If he is still having diarrhea he knows to drop off a stool specimen. He was given a lab slip today for stool. If his stools normalize off the clindamycin he knows he does not need to bring in a stool specimen. 3. HIV. He still misses doses, but his viral load remains undetectable although it was not the ultrasensitive assay. His CD4 count is down a bit. Unclear as to the significance as the percent is stable. Would plan to repeat his labs in three to four months and continue him on his present regimen for now. Even though his CD4 count remains greater than 200, I did elect to continue him on his Dapsone. 4. History of cryptococcal meningitis. Again he has been off his fluconazole, and he seems to be doing well. We stopped it in July. We will need to reinstitute it if his CD4 count falls further. 5. Alopecia. We thought this was related to the fluconazole. He has been off if for about six monthsand we have not seen any improvement to date. He has requested to see dermatology. I do not know howlana did not get set up, but will work on that. 6. Blurry vision. Again, we suggest that he go to have a dilated eye exam once a year in view of hisunderlying immune compromise. 7. Tobacco use. We did discuss this again today. He is not quite ready to quit, although it does sound like he has decreased the amount that he is smoking, but he is considering smoking cessation. 8. 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 Again, he still uses alcohol intermittently, although he has done much better with this. We have not considered him a candidate for hep-C therapy because of his alcohol use and his very active hepatitis B. Signed by Juli Franz MD 02/10/2007 16:08 Sandy Ortega MD Juli Franz MD - Juli Franz MD - DD Job ID: [id number] Doc ID: [id number] cc: [facility] - Job ID: [id number] Doc ID: [id number] cc: [facility] documented in this encounter Plan of Treatment Not on filedocumented as of this encounter Visit Diagnoses Not on filedocumented in this encounter Care Teams Revenue Coordinator Relationship Specialty Start Date End Date Hanane Pollock NP PCP - General 01/30/09 02/23/19 [facility] [address] [place] [address] documented as of this encounter
--- OUTSIDE RECORDS SUMMARY | 2022-05-02 11:06 | XMS_ITS | Encounter Summary ---
:1970 Author Organization [facility] Address [address] [place] [address] Care Team Providers Name Role Phone Hanane Pollock NP Primary Care Provider Encounter Details Date Type Department Care Team Description 04/20/2004 Results Only [facility] Rashid Blum MD Dermatology - [facility] [address] [facility] [address] [place] [address] [address], [place] [id number] (Wo rk) Social History Tobacco Use Types Packs/Day Years Used Date Never Assessed Sex Assigned at Date Recorded Not on file documented as of this encounter Plan of Treatment Not on filedocumented as of this encounter Procedures Procedure Name Priority Date/Time Associated Diagnosis Comme nts SURGICAL PATHOLOGY Routine 04/20/2004 0:00 EDT Re sults for this procedure are i n the results section. documented in this encounter Results SURGICAL PATHOLOGY (04/20/2004 0:00 EDT) Pathology Report: SURGICAL PATHOLOGY REPORT BRAD REHMAN Reports generated via electronic interface contain lui ginal data; LAB however they are lacking the format of the original re port. Caution should be taken when reading/interpreting unfo rmatted reports. Name: ? KALEB CEDILLO ? Accession #: ? [id number] ? : ? 1970 (Age: 34) ??M ? Collect Date: ? 04/20/2004 ? Location: ? [facility] ? Receive Date: ? 004 ? Provider: ARTUR BLUM MD Copy to: ? Final Pathologic Diagnosis: ? Skin of lip, lower, shave biopsy: - ??Seborrheic keratosis, irritated and inflamed. Document reviewed and electronically signed by: TEVIN SHELL MD Report ??Date: 04/23/2004 16:10 By the signature above, the attending physician certif ies that he/she has personally conducted a gross and/or microscopic examin ation of the described specimens and rendered or confirmed the above diagnosi s. Specimen(s) Received: ? Skin lip Clinical History: ? BCC, SCC, other; clinical diagnosis code: 238.2 Gross Description: ? Received in formalin labelled Snide and lower lip is a 0.4 x 0.4 x 0.2 cm shave biopsy of a lazcano papule. ??The specimen is bis ected and entirely submitted in one cassette. ??(Dr. Leal-)/joe End of Report Specimen Performing Organization Address City/State/ZIP Code Phon e Number [facility] [address] [place] [address] [place] [address] documented in this encounter Visit Diagnoses Not on filedocumented in this encounter Care Teams Engineering Mathematician Relationship Specialty Start Date End Date Hanane Pollock NP PCP - General 01/30/09 02/23/19 [facility] [address] [place], [place] [id number] documented as of this encounter
--- OUTSIDE RECORDS SUMMARY | 2022-05-02 11:06 | XMS_ITS | Encounter Summary ---
:1970 Author Organization [facility] Address [address] [place] [address] Care Team Providers Name Role Phone Hanane Pollock NP Primary Care Provider Encounter Details Date Type Department Care Team Description 02/19/[address] [facility] - Efrain Franz, Visit (Sandra) Sandra bauman MD [address] [place] [address] Social History Tobacco Use Types Packs/Day Years Used Date Never Assessed Sex Assigned at Date Recorded Not on file documented as of this encounter Progress Notes Juli Franz MD - 09/19/2009 1710 EST DIVISION OF INFECTIOUS DISEASE PROGRESS/FOLLOWUP NOTE - 02/19/2006 [facility] SUBJECTIVE: Gu[place] presents for reevaluation of his HIV disease/AIDS. [facility]. Since he was last seen, it sounds like he has been feeling well. He denies any acute illness. He says his appetite has been good, as has his energy level, and he has not been having any localizing complaints. He has had very occasional headaches, but nothing persistent. No neck pain or stiffness. No persistent nausea. He does have some vomiting in the morning on occasion when he has been coughing severely which can be contribute to the vomiting. He is not having any vomiting at any other times. He denies any abdominal pain. No problems with diarrhea. No difficulty urinating. He hassome rash now that he has been out in the sun over the summer, but this seems to be quite mild, although it does sound like he has been trying to limit his sun exposure. He is still smoking a pack and a half to two packs of cigarettes a day and drinking the equivalent of about a 12-pack of beer per week, although usually does use hard liquor. He denies any localizing neurologic complaints. He is not having any problems with fevers, chills or night sweats. He says he has been taking his medications regularly. He thinks he has missed maybe one morning dose since I last saw him. Medications: 1. Dapsone 100 a day. 2. Fluconazole 200 a day. 3. Epivir 300 once a day. 4. Sustiva 600 once a day. 5. Zerit 400 twice daily. 6. Viread 300 once a day. OBJECTIVE: On physical examination, his weight was fairly stable at 70.7 kg. He was afebrile with a temperatureof 96.5??. Blood pressure was 124/80. He is nontoxic and in no acute distress, alert and appropriate. Pupils equal and reactive. Sclerae nonicteric. Conjunctivae pink without hemorrhages. He had no oral lesions. He has no cervical or supraclavicular lymphadenopathy. He had some rhonchi anteriorly on the right, otherwise lungs were clear. Cardiac exam revealed a regular rhythm without murmurs, rubs orgallops. Bowel sounds were present. Abdomen was soft, nontender. No hepatosplenomegaly or masses appr eciated. Extremities are without edema. Skin without acute rash. On neurologic examination, he had minimal decreased vibratory sense in the distal foot bilaterally, but he had intact Achilles reflexes and reflexes were equal bilaterally throughout. Laboratory studies done in preparation for this visit included viral load undetectable at less than 50 copies, CD4 count 320 and 13%. His chemistries were unremarkable. Lipid panel revealed triglycerides 188 with an HDL of 29 and LDL 110. His CBC was unremarkable. His transaminases were within normal limits. ASSESSMENT/PLAN: 1. HIV positive/AIDS. He has a history of cryptococcal meningitis. He has done remarkably well on his antiretroviral therapy. His CD4 count is fairly stable. I think that there has been some decrease in the CD4 counts with the change in the technology used to measure this, but his CD4 count looks fairlystable. His viral load remains undetectable. It sounds like he has been remarkably good in terms oftaking his medications regularly, and he seems to be tolerating them well without adverse effects. Would plan to continue his present regimen. I guess we could consider stopping his Dapsone as his CD4 count has remained well above 250 for a prolonged period to time. I am less likely to plan to stop his fluconazole in the near future, but that would be another consideration. Would continue him on his present antiretrovirals for now. 2. History of cryptococcal meningitis. Will consider stopping the fluconazole, but his percent has remained quite low on his CD4 count, and again he has been tolerating the fluconazole well. 3. Chronic liver disease. He is known to have chronic hepatitis C and hepatitis B with cirrhosis on biopsy, although he continues to use alcohol. We had a prolonged discussion concerning this today. I do not think he is really amenable to the idea of discontinuing all alcohol use, but clearly I am concerned he will accelerate his liver disease to uncompensated cirrhosis with continued use of alcohol. 4. Tobacco use. Again, I encouraged him to discontinue his tobacco use. He does have some symptoms suggestive of impairment of his lungs with dyspnea on exertion. 5. Abnormal lipid panel. He has mildly elevated triglycerides and a decrease in his HDL. I do think if he quit smoking that would be the most important thing for him, and I would not add any additionalmedications for his lipids at this time. Signed by Juli Franz MD 03/04/2006 14:00 Sandy Ortega MD Juli Franz MD - Juli Franz MD P - Job ID: [id number] Document ID: [id number] cc: Hanane Pollock NP documented in this encounter Plan of Treatment Not on filedocumented as of this encounter Visit Diagnoses Not on filedocumented in this encounter Care Teams Fuel Management Handler Relationship Specialty Start Date End Date Hanane Pollock NP PCP - General 01/30/09 02/23/19 [facility] [address] [place] [id number] documented as of this encounter
--- NOTE | 2022-05-02 12:46 | DI.RAD_ITS ---
Exam(s) XR KNEE RT 3V AP,LAT,LES EXAM: XR KNEE RT 3V AP,LAT,LES CLINICAL HISTORY: RT KNEE PAIN, EVALUATE FOR OA, M25.561 TECHNIQUE: COMPARISON: CR XR KNEE LT 3V AP,LAT,LES from 05/02/2022 FINDINGS: Three views were obtained. Cartilaginous joint spaces are well maintained. There is probable joint effusion seen on the lateral view. No other bony or soft tissue abnormality seen. IMPRESSION: Joint effusion, otherwise negative. RADIATION DOSE DELIVERED: Total DLP
--- NOTE | 2022-05-02 12:46 | DI.RAD_ITS ---
Exam(s) XR KNEE LT 3V AP,LAT,LES EXAM: XR KNEE LT 3V AP,LAT,LES CLINICAL HISTORY: LT KNEE PAIN, M25.562,EVALUATE FOR OA TECHNIQUE: COMPARISON: No exams were available for comparison FINDINGS: Three views were obtained. Cartilaginous joint spaces are well maintained. No gross joint effusion on the lateral view. No bony or soft tissue abnormality seen. IMPRESSION: Negative examination of the knee. RADIATION DOSE DELIVERED: Total DLP
== END ==
PROVIDERS: PCP Nurse Practitioner Family; Visit Provider Nurse Practitioner Family
DX: M25.461 Effusion, right knee (principal)
CPT/HCPCS: 73562

== ENCOUNTER 2022-07-02 16:16 | Outpatient (REF) | payer MEDICARE, MEDICAID, SELFPAY ==
[2022-07-02 16:38] LABS: Calculated LDL 166 mg/dL (<100); Cholesterol 237 mg/dL (<200); HDL Cholesterol 38 mg/dL (40-60); Triglyceride 168 mg/dL (<150)
[2022-07-02 16:47] LABS: Uric Acid 6.2 mg/dL (3.5-7.2)
== END 2022-07-02 16:17 | disposition home or self-care (01) ==
LOC: NCHCN 16:16
PROVIDERS: PCP Nurse Practitioner Family; Visit Provider Nurse Practitioner Family
DX: E78.1 Pure hyperglyceridemia (principal); I10 Essential (primary) hypertension; M25.562 Pain in left knee
CPT/HCPCS: 80061; 84550

== ENCOUNTER 2022-09-19 03:05 | Outpatient (CLI) | payer MEDICARE, MEDICAID, SELFPAY ==
[2022-09-19 12:57] LABS: Abs Immature Grans 0.02 10^3/uL (0.0-0.06); Absolute Eosinophil Count 0.41 10^3/uL (0.0-0.7); Absolute Lymphocyte Count 3.02 10^3/uL (1.2-3.4); Absolute Monocyte Count 0.74 10^3/uL (0.1-0.8); Absolute Neutrophil Count 3.54 10^3/uL (1.2-6.7); Basophils % 1.3; Eosinophils % 5.2; HCT 49.7 % (40.0-50.0); HGB 17.1 g/dL (13.5-17.5); Immature Grans % 0.3; Lymphocytes % 38.6; MCH 32.9 pg (27.0-33.0); MCHC 34.4 % (32.0-36.0); MCV 96 fL (80-95); MPV 9.1 fL (8.0-11.0); Monocytes % 9.5; Neutrophils % 45.1; Platelet Count 294 10^3/uL (130-400); RBC 5.19 10^6/uL (4.36-5.78); RDW-SD 46.5 fL; WBC 7.83 10^3/uL (4.4-10.8)
[2022-09-19 13:10] LABS: ALT 45 U/L (16-63); AST 16 U/L (15-37); Albumin 4.5 g/dL (3.4-5.0); Alkaline Phosphatase 65 U/L (46-116); BUN 26 mg/dL (7-18); Bilirubin, Total 0.8 mg/dL (0.2-1.0); CREATININE 1.1 mg/dL (0.70-1.30); Calcium 9.4 mg/dL (8.5-10.1); Chloride 104 mmol/L (98-107); Estimated GFR 79.77 (mL/min/1.73m2); Glucose 106 mg/dL (74-106); Potassium 4.3 mmol/L (3.5-5.1); Sodium 139 mmol/L (136-145); Total Protein 7.6 g/dL (6.4-8.2)
[2022-09-20 13:09] LABS: HCV RNA Qualitative Undetected (Undetected)
[2022-09-20 16:02] LABS: 4/8 Ratio 0.97 (>=0.90); Absolute CD3 2421 Cells/uL (840-2669); Absolute CD8 1218 Cells/uL (154-1097); CD3 74 % (56-84); CD4 36 % (31-64); CD8 37 % (9-39)
[2022-09-21 16:08] LABS: HBV DNA Detect/Quant, PCR Undetected IU/mL (Undetected)
[2022-09-23 14:49] LABS: HIV 1 RNA Qualitative Undetected copies/mL (Undetected)
== END 2022-09-19 03:06 | disposition home or self-care (01) ==
LOC: LOS 03:05
PROVIDERS: Nurse Practitioner Family; PCP Nurse Practitioner Family; Visit Provider Nurse Practitioner Family
DX: B20 Human immunodeficiency virus [HIV] disease (principal); B18.1 Chronic viral hepatitis B without delta-agent; B18.2 Chronic viral hepatitis C; Z79.899 Other long term (current) drug therapy
CPT/HCPCS: 36415; 80053; 87517; 87522; 87536; 85025; 86359; 86360

== ENCOUNTER 2022-09-30 13:28 | Outpatient (REF) | payer MEDICARE, MEDICAID, SELFPAY ==
[2022-09-30 16:50] LABS: Calculated LDL 142 mg/dL (<100); Cholesterol 235 mg/dL (<200); HDL Cholesterol 42 mg/dL (40-60); Triglyceride 256 mg/dL (<150)
== END 2022-09-30 13:29 | disposition home or self-care (01) ==
LOC: NCHCN 13:28
PROVIDERS: PCP Nurse Practitioner Family; Visit Provider Nurse Practitioner Family
DX: E78.1 Pure hyperglyceridemia (principal); I10 Essential (primary) hypertension
CPT/HCPCS: 80061

== ENCOUNTER 2022-10-17 02:34 | Outpatient (CLI) | payer MEDICARE, MEDICAID, SELFPAY ==
--- NOTE | 2022-10-17 | DI.CTLCSR_ITS ---
Exam(s) CT CHEST LUNG CANCER SCREEN EXAM: CT CHEST LUNG CANCER SCREEN CLINICAL HISTORY: SCREENING FOR LUNG CA, CURRENT SMOKER, F17.210. TECHNIQUE: Imaging Protocol: Low Dose Technique CONTRAST MATERIAL: None COMPARISON: CT CHEST WITH CONTRAST from 04/16/2011 CR XR RIBS RT W PA LAT CHEST from 02/18/2022 FINDINGS: CHEST: LUNGS: In the right lung apex there is a pleural based partially calcified nodular density which appe ars stable in size when compared to 2011 CT scan and therefore benign. There is no associated rib de struction.. Lower down in the right upper lobe there is a peripheral subpleural nodule which measure s 5 mm in a, unchanged in size from 2011. Slightly below this level laterally in the right upper lob e are benign-appearing unchanged subpleural markings. No additional significant right lung findings and no pleural effusions. In the opposite-left lung there are no new significant focal findings nor pleural effusion. No pleur al effusions. MEDIASTINUM: There is no obvious hilar nor mediastinal adenopathy. CARDIAC: Heart size is normal. There is no pericardial effusion.Caliber of the thoracic aorta is wit hin normal limits. OTHER: OSSEOUS: No significant osseous lesions.. IMPRESSION: 1. Stable right lung findings as described individually above. No new findings in either lung. No p leural effusions. 2. No obvious intrathoracic adenopathy. 3. Lung RADS Cat 2 - Benign Appearance / Behavior: Nodules with a very low likelihood of becoming a c linically active cancer due to size or lack of growth Lung-RADS 1.0 CATEGORIES: Category 0 - Prior chest CT exam(s) being located for comparison. Category 1 - Annual screening in 12 months. No nodules or definitely benign nodules. Category 2 - Annual screening in 12 months. Benign appearance. Nodules with low likelihood of becomin g active cancer. Category 3 - 6-month follow-up. Probably benign. Short-term follow-up suggested. Nodules with low lik elihood of becoming active cancer. Category 4A - 3-month follow-up and CT/PET if >8 mm in size. Suspicious finding. Findings which requi re additional testing. Category 4B - Findings which require additional testing and tissue sampling. Category 4X - Category 3 or 4 nodules with additional features or imaging findings that increases the suspicion of malignancy. Modifier S- Potentially clinically significant findings (non lung cancer) RADIATION DOSE DELIVERED: 77.4mGy.cm Total DLP DATA REPOSITORY: All CT scans at this facility are submitted to the National Radiology Data Registry (NRDR) Dose Index Registry (DIR) with the [employer] (ACR). RADIATION OPTIMIZATION: All CT scans at this facility use at least one of these dose optimization te chniques: automated exposure control; mA and/or kV adjustment per patient size (includes targeted exa ms where dose is matched to clinical indication); or iterative reconstruction.
== END 2022-10-17 02:54 ==
LOC: DI 02:35
PROVIDERS: PCP Nurse Practitioner Family; Visit Provider Nurse Practitioner Family
DX: Z12.2 Encounter for screening for malignant neoplasm of respiratory organs (principal); F17.210 Nicotine dependence, cigarettes, uncomplicated; R91.1 Solitary pulmonary nodule; J98.4 Other disorders of lung
CPT/HCPCS: 71271

== ENCOUNTER → 2022-11-18 07:56 | Outpatient (BNVA) | payer MEDICARE, MEDICAID, SELFPAY | PROVIDERS: PCP Nurse Practitioner Family; Referring Provider Nurse Practitioner Family; Visit Provider Surgery | DX: K64.8 Other hemorrhoids (principal) | CPT/HCPCS: 99214 ==

== ENCOUNTER 2023-04-02 04:05 | Outpatient (CLI) | payer MEDICARE, MEDICAID, SELFPAY ==
[2023-04-02 12:18] LABS: Abs Immature Grans 0.02 10^3/uL (0.0-0.06); Absolute Basophil Count 0.08 10^3/uL (0.0-0.2); Absolute Eosinophil Count 0.38 10^3/uL (0.0-0.7); Absolute Lymphocyte Count 3.07 10^3/uL (1.2-3.4); Absolute Monocyte Count 0.86 10^3/uL (0.1-0.8); Absolute Neutrophil Count 5.79 10^3/uL (1.2-6.7); Basophils % 0.8; Eosinophils % 3.7; HGB 17.3 g/dL (13.5-17.5); Immature Grans % 0.2; Lymphocytes % 30.1; MCH 34.1 pg (27.0-33.0); MCHC 35.3 % (32.0-36.0); MCV 97 fL (80-95); MPV 9.8 fL (8.0-11.0); Monocytes % 8.4; Neutrophils % 56.8; Platelet Count 267 10^3/uL (130-400); RBC 5.07 10^6/uL (4.36-5.78); RDW 13.2 % (11.8-14.1); RDW-SD 47.5 fL
[2023-04-02 12:46] LABS: ALT 32 U/L (16-63); AST 7 U/L (15-37); Albumin 4.1 g/dL (3.4-5.0); Alkaline Phosphatase 78 U/L (46-116); Anion Gap 9.9 mmol/L (3-11); BUN 17 mg/dL (7-18); Bilirubin, Total 0.4 mg/dL (0.2-1.0); CO2 24.1 mmol/L (21.0-32.0); Calcium 9.4 mg/dL (8.5-10.1); Chloride 106 mmol/L (98-107); Estimated GFR 88.88 (mL/min/1.73m2); Glucose 85 mg/dL (74-106); Potassium 3.9 mmol/L (3.5-5.1); Sodium 140 mmol/L (136-145); Total Protein 7.4 g/dL (6.4-8.2)
[2023-04-03 13:43] LABS: HCV RNA Qualitative Undetected (Undetected); HIV 1 RNA Qualitative Undetected copies/mL (Undetected)
[2023-04-04 15:56] LABS: HBV DNA Detect/Quant, PCR Undetected IU/mL (Undetected)
[2023-04-04 16:57] LABS: 4/8 Ratio 0.92 (>=0.90); Absolute CD3 2441 Cells/uL (840-2669); Absolute CD8 1267 Cells/uL (154-1097); CD3 74 % (56-84); CD4 35 % (31-64); CD8 38 % (9-39)
== END 2023-04-02 04:06 | disposition home or self-care (01) ==
LOC: LOS 04:06
PROVIDERS: PCP Nurse Practitioner Family; Visit Provider Nurse Practitioner Family
DX: B20 Human immunodeficiency virus [HIV] disease (principal); B18.1 Chronic viral hepatitis B without delta-agent; B18.2 Chronic viral hepatitis C; Z79.899 Other long term (current) drug therapy
CPT/HCPCS: 36415; 80053; 87517; 87522; 87536; 85025; 86359; 86360

== ENCOUNTER 2023-09-15 18:11 | Outpatient (REF) | payer MEDICARE, MEDICAID, SELFPAY ==
[2023-09-15 19:36] LABS: HDL Cholesterol 41 mg/dL (40-60); LDL CHOLESTEROL 143 mg/dL (<100)
[2023-09-15 19:50] LABS: Creatine Kinase 139 U/L (39-308)
== END 2023-09-15 18:12 | disposition home or self-care (01) ==
LOC: NCHCN 18:11
PROVIDERS: PCP Nurse Practitioner Family; Visit Provider Nurse Practitioner Family
DX: E78.2 Mixed hyperlipidemia (principal)
CPT/HCPCS: 82550; 83721; 83718

== ENCOUNTER → 2023-10-28 03:00 | Outpatient (CLI) | payer MEDICARE, MEDICAID, SELFPAY ==
--- NOTE | 2023-10-28 | DI.CTLCSR_ITS ---
Exam(s) CT CHEST LUNG CANCER SCREEN EXAM: CT CHEST LUNG CANCER SCREEN CLINICAL HISTORY: SCREENING FOR LUNG CA,CURRENT SMOKER, F17.210 TECHNIQUE: Imaging Protocol: Axial computed tomography images with coronal and sagittal reformatted images were created and reviewed. Low dose screening protocol. COMPARISON: CT CT CHEST LUNG CANCER SCREEN from 10/17/2022 FINDINGS: Tracheobronchial tree: No bronchiectasis or mucus plugging.. Mediastinum and Adriana: No dominant adenopathy or fluid collection. Pulmonary parenchyma: No consolidation or dominant measurable mass. No visible emphysematous changes. Lung Nodules: Stable calcified granuloma right lung apex. Stable 5 millimeter nodule lateral right u pper lobe. Mild emphysematous changes. Pleura: No effusion. No pneumothorax. Heart: The heart is not dilated. No coronary artery calcifications are seen. Aorta: Thoracic aorta non-dilated. Upper abdomen: Unremarkable. Bones: Stable mild T6 compression fracture. Mild degenerative changes in the thoracic spine. Soft Tissues: Unremarkable. IMPRESSION: No suspicious pulmonary nodules. Lung RADS Cat 2 - Benign Appearance / Behavior: Nodules with a very low likelihood of becoming a clin ically active cancer due to size or lack of growth Lung-RADS 1.0 CATEGORIES: Category 0 - Prior chest CT exam(s) being located for comparison. Category 1 - Annual screening in 12 months. No nodules or definitely benign nodules. Category 2 - Annual screening in 12 months. Benign appearance. Nodules with low likelihood of becomin g active cancer. Category 3 - 6-month follow-up. Probably benign. Short-term follow-up suggested. Nodules with low lik elihood of becoming active cancer. Category 4A - 3-month follow-up and CT/PET if >8 mm in size. Suspicious finding. Findings which requi re additional testing. Category 4B - Findings which require additional testing and tissue sampling. Category 4X - Category 3 or 4 nodules with additional features or imaging findings that increases the suspicion of malignancy. Modifier S- Potentially clinically significant findings (non lung cancer) RADIATION DOSE DELIVERED: 76.73mGy.cm Total DLP DATA REPOSITORY: All CT scans at this facility are submitted to the National Radiology Data Registry (NRDR) Dose Index Registry (DIR) with the [employer] (ACR). RADIATION OPTIMIZATION: All CT scans at this facility use at least one of these dose optimization te chniques: automated exposure control; mA and/or kV adjustment per patient size (includes targeted exa ms where dose is matched to clinical indication); or iterative reconstruction.
== END ==
PROVIDERS: PCP Nurse Practitioner Family; Visit Provider Nurse Practitioner Family
DX: F17.210 Nicotine dependence, cigarettes, uncomplicated (principal)
CPT/HCPCS: 71271

== ENCOUNTER → 2023-12-05 00:08 | Outpatient (CLI) | payer MEDICARE, MEDICAID, SELFPAY ==
--- NOTE | 2023-12-05 | DI.DEXA_ITS ---
Exam(s) XR DEXA BONE DENSITY W/WO JOB EXAM: XR DEXA BONE DENSITY W/WO JOB CLINICAL HISTORY: Wedge compression fx of thoracic spine, T5-T6 vertebrae, S22.050A TECHNIQUE: [employer] C densitometer analysis of left hip, lumbar spine and left forearm. Lat eral survey image of the thoracic and lumbar spine. COMPARISON: CR LUMBAR SPINE COMPLETE from 11/14/[address] CHEST LUNG CANCER SCREEN from 10/28/2023 FINDINGS: Lateral view of the thoracic and lumbar spine shows slight anterior wedging of the T6 vertebral body. Bone mineral density measurements of the lumbar spine correspond to a total T-score of -1.4, in the osteopenic range. Bone mineral density measurements of the left hip correspond to a total T-score of 0.0. The femoral neck T-score is is -0.7, in the normal range.. Theleft forearm bone mineral density measurements correspond to a T-score of the distal 3rd of -0.7, in the normal range. . IMPRESSION: Normal bone mineral density of the hip and forearm. Mild osteopenia of the lumbar spine
== END ==
PROVIDERS: PCP Nurse Practitioner Family; Visit Provider Nurse Practitioner Family
DX: S22.050A Wedge compression fracture of T5-T6 vertebra, initial encounter for closed fracture (principal); X58.XXXA Exposure to other specified factors, initial encounter
CPT/HCPCS: 77080

== ENCOUNTER 2023-12-12 00:52 | Outpatient (CLI) | payer MEDICARE, MEDICAID, SELFPAY ==
[2023-12-12 08:05] LABS: ALT 46 U/L (16-63); AST 21 U/L (15-37); Albumin 4.1 g/dL (3.4-5.0); Alkaline Phosphatase 87 U/L (46-116); BUN 22 mg/dL (7-18); Bilirubin, Total 0.4 mg/dL (0.2-1.0); Calcium 9.4 mg/dL (8.5-10.1); Chloride 105 mmol/L (98-107); Estimated GFR 88.88 (mL/min/1.73m2); Glucose 112 mg/dL (74-106); Potassium 3.9 mmol/L (3.5-5.1); Sodium 141 mmol/L (136-145); Total Protein 7.1 g/dL (6.4-8.2)
[2023-12-15 12:26] LABS: HIV 1 RNA Qualitative Undetected copies/mL (Undetected)
== END 2023-12-12 00:53 | disposition home or self-care (01) ==
LOC: LBO 00:52
PROVIDERS: PCP Nurse Practitioner Family; Visit Provider Nurse Practitioner Family
DX: B20 Human immunodeficiency virus [HIV] disease (principal); Z79.899 Other long term (current) drug therapy
CPT/HCPCS: 36415; 80053; 87536

== ENCOUNTER 2024-05-05 13:56 | Outpatient (REF) | payer MEDICARE, MEDICAID, SELFPAY ==
--- OUTSIDE RECORDS SUMMARY | 2024-05-05 13:58 | XMS_ITS | Encounter Summary ---
Author Organization [facility] Address [address] [place] [address] Care Team Providers Care Electric Truck Crane Operator Name Role Phone Sabrina Jerome RN LABOR DELIVERY Primary Care Provider [phone] Encounter Details Date Type Department Care Team (Late st Contact Info) Description 03/28/2022 Lab Requisition [facility] Pathology & Laboratory Medicine - [address] [address] Outr Resulting Lab, Provider Social History Tobacco Use Types Packs/Day Years Used Date Smoking Tobacco: Every Day Cigarettes Smokeless Tobacco: Never Alcohol Use Standard Drinks/Week Comments No 2 (1 standard drink = 0.6 oz pur e alcohol) 1 drink every 2 weeks Interpersonal Safety Answer Date Record ed Physically Hurt Never 02/13/2020 Verbally Threaten Not on file 02/13/2020 Sex and Gender Information Value Date Recorded Sex Assigned at Not on file Gender Identity Not on file Sexual Orientation Not on file documented as of this encounter Functional Status Functional Status Response Date of Assess ment Because of a physical, menta l, or emotional condition, does this person have difficulty doing errands alone such as visiting a doctor's office or shopping? No 07/20/2015 Cognitive Status Response Date of Assessm ent Because of a physical, menta l, or emotional condition, does this person have serious difficulty concentrating, remembering, or making decisions? No 07/20/2015 documented as of this encounter Plan of Treatment Not on file documented as of this encounter Procedures Procedure Name Priority Date/Time Associated Diagnosis Comments T CELL SUBSETS Routine 03/28/2022 7:40 EDT HIV 1 RNA QUANTITATION Routine 03/28/2022 7:40 EDT documented in this encounter Results * HIV 1 RNA QUANTITATION (03/28/2022 7:40 EDT) [facility] HIV RNA Detection, Qual Undetected Undetected copies/mL 04/01/2022 13:45 EDT [facility] Blood VENOUS BLOOD / Unknown 03/28/2022 7:40 EDT 03/28/2022 17:16 EDT Narrative [facility] - 04/01/2022 13:45 EDT The quantification range of this assay is 20 IU/mL to 10,000,000 IU/mL. ??Testing was performed using the Lucy HIV test ([employer] with the lucy [employer]hop0 System. Provider Outr Resulting Lab CHEMISTRY & BLOOD GAS ORDERABLES Performing Organization Address City/State/[facility] Co de Phone Number [facility] [address] [place] [address] * (ABNORMAL) T CELL SUBSETS (03/28/2022 7:40 EDT) [facility] % CD3 72 56 - 84 % 03/29/2022 16:47 [facility] % CD4 33 31 - 64 % 03/29/2022 16:47 [facility] % CD8 39 9 - 39 % 03/29/2022 16:47 [facility] Absolute CD3 2,107 840-2,669 Cells/uL 03/29/2022 16:47 [facility] Absolute CD4 957 488-1,734 Cells/uL 03/29/2022 16:47 [facility] Absolute CD8 1,125(H) 154-1,097 Cells/uL 03/29/2022 16:47 [facility] 4/8 Ratio 0.85(L) >=0.90 03/29/2022 16:47 [facility] Blood VENOUS BLOOD / Unknown 03/28/2022 7:40 EDT 03/28/2022 17:16 EDT Provider Outr Resulting Lab IMMUNOLOGY A ND SEROLOGY ORDERABLES [facility] [address] [place] [address] documented in this encounter Visit Diagnoses Not on filedocumented in this encounter Care Teams Electric Truck Crane Operator Relationship Specialty Start Date End Date Sabrina Jerome, SOM [address] [place] [phone] PCP - General 03/29/21 documented as of this encounter
--- OUTSIDE RECORDS SUMMARY | 2024-05-05 13:58 | XMS_ITS | Encounter Summary ---
Author Organization [facility] Address [address] [place] [address] Care Team Providers Care Pen And Pencil Repairer Name Role Phone Sabrina Jerome RADIO BOARD OPERATOR ANNOUNCER Primary Care Provider [phone] Reason for Visit * Reason Comments Follow-up Encounter Details Date Type Department Care Team (Late st Contact Info) Description 11/10/2023 9:30 EDT Telemedicine [facility] Infectious Disease - [address] [address] Lit Pina, DO [address] [facility], [address] [place] [phone] Asymptomatic HIV infection ([facility]) (Primary Dx) Social History Tobacco Use Types Packs/Day Years [...] No 07/20/2015 documented as of this encounter Progress Notes * Lit Pina, DO - 11/10/2023 0930 EDT I spent a total of 35 minutes on the date of this encounter meeting with the patient and reviewing documentation/coordinating care as described in the above note. No procedures were performed at the time of the visit. Division of Infectious Disease Follow up/Progress Note 11/10/23 TELEMEDICINE VIDEO VISIT Today's visit was provided through telemedicine video conferencing: I have reviewed the appropriateness of using video technology with the patient with regards to today's visit. The location of the patient : Home (where patient lives) Patient location state: Visit Location State: [place] The location of the provider: Office-BVT Provider location state: Visit Location State: [place] The following people and their roles were present for today's visit: Appointment Provider: Lit Pina, DO The concept of ???Telemedicine?? has been described to the patient.? Patient has been informed of the anticipated benefits and possible risks.? Patient understands the information provided regardingtelemedicine, has had the opportunity to ask questions about this information, and all questions have been answered to patient???s satisfaction. Patient consents for the use of telemedicine in his/her medical care and authorizes the transmission of any relevant medical information to providers and their staff involved in patient???s medical or mental health care. Patient understands that they maybe responsible for copays, deductible or coinsurance for this service. HPI: Mr. Cedillo is a 53 y.o. male with history significant for HIV who presents with routine follow up. 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 Most recent CD4 done in Mar 2023 1162, Mar 2023 VL <20. Pt on raltegravir 600mg two tabs daily and odefsey. Very good with adherence. 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 Both parties are on ART and have VL < 20. Closed relationship. His partner (Fernando) is followed at [facility] as well and they are typically seen together. Busy with work but doesn't seem overwhelmed. There seems to be plenty of work to do as well. No imminent plans for fdc. 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 Cholecalciferol, Vitamin D3, 400 unit tablet Take 400 Units by mouth daily. doxazosin (CARDURA) 4 mg tablet Take 1 tablet by mouth every day (Patient not taking: Reported on 09/17/2017) xpuvunvhhx-ohtkxbmp-dcgbke ala 200-25-25 mg tablet Take 1 Tab by mouth daily. lisinopril (PRINIVIL, ZESTRIL) 10 mg tablet Take 1 Tab by mouth daily. raltegravir 600 mg tablet Take 1,200 mg by mouth daily. 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 1) HIV, on odefsey and ralteg 1200mg PO daily. Seems comfortable with this regimen. -HIV VL Mar 2023 < 20, CD4 Mar 2023 1,162, He gets 30 days at a time for ART OI prophy NA HCV/HBV: Natural infection with both, both appeared cleared GC/chlamydia testing: Pt in closed relationship for years, will defer for now -Needs CD4 count viral load now, Hanane will order 2) HBV in past, needs to always stay on TAF/3TC based regimen 3) Active smoking; was down down to 3-4 cigs daily but now smoking about a half a pack a day. PCM tried Wellbutrin with patient but it has not seemed to help. 4) Prev med: menactra UTD. Shingrix UTD x 2. Hep A vaccine in distant past. Td 2021, [place] Apr 2019,looked good so repeat in 10 years. Pneumovax 2019, prevnar 2014. COVID 2020, due for booster but patient declines again today and doesn't trust the CDC. Flu shot Mar 2023 5) HTN per PCM, sees a new PCM in summer 2023. 6) Had benign lesion removed from oral cavity in 2019, benign. Pt encouraged to stop smoking 7) Compression fx in vertebral spine noted on routine CXR performed locally to follow lung nodule per his report. Pt pending bone scan. He does remember several examples of suffering trauma to his back in the past few years. Pain currently sounds minimal. Currently employed: Yes Adherence counseling: Yes Linguistic services: No Patient with HIV (-) partner: Yes HIV (-) partner tested within the last 12 months: Not applicable Partner notification discussed: Not applicable Social History Social History Tobacco Use Smoking Status Current Every Day Smoker Packs/day: 0.20 Types: Cigarettes Smokeless Tobacco Never Used Smoking [...] once in the past 12 months): marijuana * Lit Pina DO - 11/10/2023 0930 EDT xx documented in this encounter Plan of Treatment Not on file documented as of this encounter Visit Diagnoses Diagnosis Asymptomatic HIV infection ([facility])- Primary Asymptomatic human immunodeficiency virus (HIV) infection status documented in this encounter Care Teams Pen And Pencil Repairer Relationship Specialty Start Date End Date Sabrina Jerome NP [address] [place] [phone] PCP - General 9/16/21 documented as of this encounter
--- OUTSIDE RECORDS SUMMARY | 2024-05-05 13:58 | XMS_ITS | Encounter Summary ---
Author Organization [facility] Address [address] [place] [address] Care Team Providers Care Grant Administrator Name Role Phone Sabrina Jerome LEAD CASTER HELPER Primary Care Provider [phone] Encounter Details Date Type Department Care Team (Latest Contact Info) Description 08/21/2023 Specialty Pharmacy [facility] [address] [place], [place] [id number] Frankie Mitchell [facility] Set up initial fill for HIV, Patient Education for HIV, Prospective Review for HIV Social History Tobacco Use Types Packs/Day Years [...] No 07/20/2015 documented as of this encounter Ordered Prescriptions Prescription Sig Dispensed Refills Start Date End Da te lisinopriL (PRINIVIL) 10 mg tablet Take 1 Tablet by mouth daily. 90 Tablet 3 08/22/2023 raltegravir (ISENTRESS HD) 600 mg tabletIndications:Acquired immunodeficiency syndrome (HCC-CMS) Take 2 Tablets by mouth daily. 180 Tablet 3 08/21/2023 iamxofbefyawc-amuerxkgppi-x enofovir alafenam (ODEFSEY) tabletIndications:Acquired immunodeficiency syndrome (HCC-CMS) Take 1 Tablet by mouth daily. Take with food. 90 Tablet 3 08/21/2023 documented in this encounter Progress Notes * Frankie Mitchell RPH - 08/21/2023 0910 EST Discussed [facility] services with partner Greg Sampson. Patient has elected to enroll Odefsey and Raltegravir in [facility]s clinical and dispensing services. Frankie Mitchell, PharmD Ambulatory Pharmacist [facility] Infectious Disease 08/21/2023 * Frankie Mitchell RPH - 08/21/2023 0910 EST Spoke with Guanakito's partner Greg, who is also requesting that Guanakito's lisinopril 10 mg script be sentto [facility] mail-order pharmacy in combination with his HIV medications. Prescription sent electronically to patient's preferred pharmacy. Will route to Bharat Juan to investigate ERP enrollment. Will route to Dr. Pina for review and to update clinic staff at [facility] who may be unaware of pharmacy change. Frankie Mitchell PharmD Ambulatory Pharmacist [facility] Infectious Disease 08/22/2023 Med Orders Placed This Visit and Additions to the Medication List Medications xlmonqriqgziy-fsuhtbmgmch-bgjpxjyrg alafenam (ODEFSEY) tablet Sig: Take 1 Tablet by mouth daily. Take with food. Dispense: 90 Tablet Refill: 3 [facility] raltegravir (ISENTRESS HD) 600 mg tablet Sig: Take 2 Tablets by mouth daily. Dispense: 180 Tablet Refill: 3 [facility] lisinopriL (PRINIVIL) 10 mg tablet Sig: Take 1 Tablet by mouth daily. Dispense: 90 Tablet Refill: 3 ERP - please leave for [facility] * Bharat Juan - 08/21/2023 0910 EST [facility] - Patient Consent for ERP Guanakito Cedillo is a patient filling Isentress + Odefsey with [facility] and has agreed to enroll their non-specialty medications in our automatic refill program through Enhanced Refill Processing (ERP). Patient understands these medications will be automatically processed through the [facility] program, 7 days prior to their next refill due date: yes Patient was instructed to call [facility] if they are prescribed a new medication that they would like to be mailed to them and/or added to ERP: yes Patient has a credit card on file in [employer] and consents to have it charged for these refillsautomatically: yes [facility] will review the patient's ERP profile in [employer] during each [facility] outreach calls. Patient understands that [facility]ill delivery: yes Medications to enroll in ERP: Lisinopril Bharat Juan 08/22/2023 * Erika House RPH - 08/21/2023 0910 EST I spoke with partner, Greg, they received delivery from [facility] today for Odefsey for 30 days- he asked me to call and cancel this and Isentress with [facility]. I did this today. Rxs at [facility] are canceled and he will get both of these from [facility]. documented in this encounter Plan of Treatment Not on file documented as of this encounter Visit Diagnoses Diagnosis Acquired immunodeficiency syndrome ([facility])- Primary Human immunodeficiency virus [HIV] disease documented in this encounter Discontinued Medications Medication Sig Discontinue Reason Start Date End Da te raltegravir 600 mg tablet Take 1,200 mg by mouth daily. Reorder 09/17/2017 08/21/2023 ODEFSEY tablet Take 1 tablet by mouth every day Reorder 06/28/2022 08/21/2023 lisinopril (PRINIVIL, ZESTRIL) 10 mg tablet Take 1 Tab by mouth daily. Duplicate order 03/12/2017 08/22/2023 documented as of this encounter Care Teams Grant Administrator Relationship Specialty Start Date End Date Sabrina Jerome, SOM [address] [place] [phone] PCP - General 03/29/21 documented as of this encounter
--- OUTSIDE RECORDS SUMMARY | 2024-05-05 13:58 | XMS_ITS | Referral Summary ---
Author Organization [facility] Address [address] [place] [address] Care Team Providers Care Brake Mechanic Name Role Phone Sabrina Jerome ALUMINUM MOLDER Primary Care Provider [phone] Encounters Date Type Department Care Team Description 05/05/2024 Specialty Pharmacy [facility] [address] [place] [id number] Frankie Mitchell RPH Started Refill Coordination Outreach for HIV 04/07/2024 Specialty Pharmacy [facility] [address] [place] [phone] Frankie Mitchell RPH Refill Coordination Outreach for HIV 03/03/2024 Specialty Pharmacy [facility] [address] [place] [phone] Frankie Mitchell RPH Refill Coordination Outreach for HIV 02/06/2024 Specialty Pharmacy [facility] [address] [place] [phone] Frankie Mitchell RPH Refill Coordination Outreach for HIV from Last 3 Months Allergies Active Allergy Reactions Criticality Noted Date Comments Penicillins Rash 05/14/2010 Sulfa (Sulfonamide Antibiotics) Hives 07/2009 Medications Medication Sig Dispensed Refills Start Date End Date Status acetaminophen (TYLENOL EXTRA STRENGTH) 500 mg tablet Take 1,000 mg by mouth every 12 hours as needed for Pain. Active doxazosin (CARDURA) 4 mg tablet Take 1 tablet by mouth every day 30 Tab 1 02/14/2017 Active Additional Information Patient not taking.Reported on 09/17/2017 Cholecalciferol, Vitamin D3, 400 unit tablet Take 400 Units by mouth daily. Active emtricitabine-rilpivir ine-tenofovir alafenam (ODEFSEY) tabletIndications:Acqu ired immunodeficiency syndrome ([facility]) Take 1 Tablet by mouth daily. Take with food. 90 Tablet 3 08/21/2023 Active raltegravir (ISENTRESS HD) 600 mg tabletIndications:Acqu ired immunodeficiency syndrome ([facility]) Take 2 Tablets by mouth daily. 180 Tablet 3 08/21/2023 Active lisinopriL (PRINIVIL) 10 mg tablet Take 1 Tablet by mouth daily. 90 Tablet 3 08/22/2023 Active buPROPion (WELLBUTRIN SR) 150 mg SR tablet Take 1 Tablet by mouth 2 times daily. 0 10/27/2023 Active celecoxib (CELEBREX) 100 mg capsule Take 1 Capsule by mouth daily. 07/29/2023 Active Active Problems Problem Noted Date Diagnosed Date Lung nodule 03/30/2014 Overview: Had right apical nodule that was biopsied in 2010 - necrotic material with AFB on bx but culture neg. 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[facility]) Overview: HIV/AIDS - h/o cryptococcal meningitis ART History:?Originally treated with IDV/CBV, then boosted IDV/CBV - [...] RAL/3TC/TDF/ATVr Chronic active type B viral hepatitis (HCC-CMS) 01/25/2010 Chronic hepatitis C (HCC-CMS) 01/25/2010 Overview: Never treated HCV RNA not detectable Unable to genotype 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 Alopecia 01/25/2010 Immunizations Name Administration Dates Next Due Influenza Vaccine =>3yo Spli t Preservative Free IM 03/19/2013 Influenza Vaccine Quad (AFLU ANDER) PF 0.5 ml IM (3 yrs+) 03/12/2017,06/28/2015,03/30/2014 Pneumococcal Conjugate Vacci ne 13-Valent (PCV13) (PREVNAR-13) 0.5 mL IM (6 wks+) 06/28/2015 Tdap Vaccine =>7YO IM 10/02/2011 Social History Tobacco Use Types Packs/Day Years Used Date Smoking Tobacco: Every Day Cigarettes Smokeless Tobacco: Never Tobacco Cessation:Ready to Q uit: Yes; Counseling Given: Yes Alcohol Use Standard Drinks/Week Comments No 2 (1 standard drink = 0.6 oz pur e alcohol) 1 drink every 2 weeks Interpersonal Safety Answer Date Record ed Physically Hurt Never 02/13/2020 Verbally Threaten Not on file 02/13/2020 Sex and Gender Information Value Date Recorded Sex Assigned at Not on file Gender Identity Not on file Sexual Orientation Not on file Last Filed Vital Signs Vital Sign Reading Time Taken Comments Blood Pressure 110/78 09/17/2017 1013 EST Pulse 48 09/17/2017 1013 EST Temperature 36 ??C (96.8 ??F) 09/17/2017 1013 EST Respiratory Rate 16 05/23/2011 1619 EST Oxygen Saturation 100% 05/23/2011 1619 EST Inhaled Oxygen Concentration - - Weight 81.3 kg (179 lb 3.7 oz) 09/17/[address] Height 175.3 cm (5' 9) 07/20/2015 1513 EST Body Mass Index 26.47 07/20/2015 1513 EST Functional Status Functional Status Response Date of Assess ment Because of a physical, menta l, or emotional condition, does this person have difficulty doing errands alone such as visiting a doctor's office or shopping? No 07/20/2015 Cognitive Status Response Date of Assess ent Because of a physical, menta l, or emotional condition, does this person have serious difficulty concentrating, remembering, or making decisions? No 07/20/2015 Plan of Treatment Not on file Procedures Procedure Name Priority Date/Time Associated Diagnosis Comments HCV RNA DETECT QUANT Routine 04/02/2023 9:05 EDT from Last 3 Months or Most Recently Relevant to Health Maintenance Results * HCV RNA DETECT QUANT (04/02/2023 9:05 EDT) HCV RNA Qualitative Undetected Undetected 04/03/2023 13:36 EDT [facility] Blood VENOUS BLOOD / Unknown 04/02/2023 9:05 EDT 04/02/2023 17:16 EDT Narrative [facility] - 04/03/2023 13:36 EDT The quantification range of this assay is 15 IU/mL to 100,000,000 IU/mL. Testing was performed using the Lucy HCV test ([employer] with the lucy European Batteries0 System. Provider Outr Resulting Lab CHEMISTRY & BLOOD GAS ORDERABLES [facility] [address] [place] [address] from Last 3 Months or Most Recently Relevant to Health Maintenance Care Teams Brake Mechanic Relationship Specialty Start Date End Date Sabrina Jerome NP [address] [place] [phone] PCP - General 03/29/21
--- OUTSIDE RECORDS SUMMARY | 2024-05-05 13:58 | XMS_ITS | Encounter Summary ---
Author Organization [facility] Address [address] [place] [address] Care Team Providers Care Multimedia Manager Name Role Phone None, Provider Primary Care Provider Unavailabl e Reason for Visit * Reason Onset Date Comments Follow-up 08/21/2020 Encounter Details Date Type Department Care Team (Late st Contact Info) Description 08/21/2020 Telephone [facility] Infectious Disease - [address] [address] Lit Pina, DO [address] [facility], [address] [place] [address] Follow-up Social History Tobacco Use Types Packs/Day Years [...] No 07/20/2015 documented as of this encounter Miscellaneous Notes * Telephone Encounter - Lit Pina DO - 08/21/2020 2068 EST Patient's Fernando called stating that patient was significantly struggling with insomnia. Patient is on Odefsey and raltegravir. Neither of these medications are new. I told the patient that wewould try to connect with Sabrina Jerome, his [...] documented as of this encounter Visit Diagnoses Not on filedocumented in this encounter Care Teams Multimedia Manager Relationship Specialty Start Date End Date None, Provider PCP - General 03/02/20 03/28/21 documented as of this encounter
--- OUTSIDE RECORDS SUMMARY | 2024-05-05 13:58 | XMS_ITS | Encounter Summary ---
Author Organization [facility] Address [address] [place] [address] Care Team Providers Care Master Ocean Name Role Phone Sabrina Jerome BIG DATA ENGINEER Primary Care Provider [phone] Reason for Visit * Reason Comments Follow-up Encounter Details Date Type Department Care Team (Late st Contact Info) Description 09/23/2022 9:30 EDT Telemedicine [facility] Infectious Disease [address] [address] Lit Pina, DO 111 [facility], [facility] [address] [place] [address] Asymptomatic HIV infection (HCC-CMS) (Primary Dx) Social History Tobacco Use Types [...] Progress Notes * Lit Pina, DO - 09/23/2022 0930 EDT I spent a total of 30 minutes on the date of this encounter meeting with the patient and reviewing documentation/coordinating care as described in the above note. No procedures were performed at the time of the visit. Division of Infectious Disease Follow up/Progress Note 09/23/22 8:43 TELEMEDICINE VIDEO VISIT Today's visit was provided through telemedicine video conferencing: The location of the patient : [facility] The location of the provider: Office [place] [...] presented with cryptococcal meningitis.??Most recent CD4 done in September 2022 1186, Mar 2022 VL <20 with current one pending.?Pt on raltegravir 600mg two tabs daily and odefsey. Very good with adherence. 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 ?Closed relationship. ??His partner??(Fernando)??is followed at [facility] as well and they are typically seen together. ?? Busy with work but doesn't seem overwhelmed. There seems to be plenty of work to do as well. ?? Review of Systems: 10-point review of [...] day (Patient not taking: Reported on 09/17/2017) zedazdcavi-tlnycepn-ydpshz ala 200-25-25 mg tablet Take 1 Tab [...] daily.?Seems comfortable with this regimen. ?? -HIV VL??Mar 2022 < 20, current one pending, CD4 september 2022 1,186, ??He gets??90 days at a time??for ART supply so doing well but he may be interested in converting to mail order pharmacy to helpsync up his partner's HIV meds/supply concerns OI prophy NA HCV/HBV: ??Natural infection with both, both appeared cleared GC/chlamydia testing: ??Pt in closed relationship for years, will defer for now Need to see in 6 months for next eval ?? 2) HBV in past, needs to always stay on TAF/3TC based regimen ?? 3) Active smoking; but pt down to 3-4 cigs daily which is great news. ?? 4) Prev med:?menactra #2??UTD.?Shingrix UTD x 2. ?Hep A vaccine in distant past. ??Tdap 2011, needs booster (will get at [facility] next month). ?[place]??Apr 2019, looked good so repeat in 10 years.?Pneumovax 2018, prevnar 2014.?COVID 2020, due for booster but patient declines. Flushot Apr 2022 ?? 5) HTN per [facility], sees Sabrina Jerome with good regularity. [...] encounter Visit Diagnoses Diagnosis Asymptomatic HIV infection ([facility])- Primary Asymptomatic human immunodeficiency virus (HIV) infection status documented in this encounter Care Teams Master Ocean Relationship Specialty Start Date End Date Sabirna Jerome NP [address] [place] [phone] PCP - General 03/29/21 documented as of this encounter
--- OUTSIDE RECORDS SUMMARY | 2024-05-05 13:58 | XMS_ITS | Encounter Summary ---
Author Organization [facility] Address [address] [place] [address] Care Team Providers Care Tile Presser Name Role Phone Sabrina Jerome DOG POUND ATTENDANT Primary Care Provider [phone] Reason for Visit * Reason Comments Medications Refill Encounter Details Date Type Department Care Team (Late st Contact Info) Description 04/22/2022 Refill [facility] Infectious Disease [address] [address] Lit Pina, DO 111 [facility], [facility] [address] [place] [address] Medications Refill Social History Tobacco Use Types Packs/Day Years [...] Dispensed Refills Start Date End Da te raltegravir (ISENTRESS HD) 600 mg tablet Take 2 Tablets by mouth daily for 30 days. 60 Tablet 11 04/23/2022 05/23/2022 documented in this encounter Plan of Treatment Not on file documented as of this encounter Visit Diagnoses Not on filedocumented in this encounter Discontinued Medications Medication Sig Discontinue Reason Start Date End Da te raltegravir (ISENTRESS HD) 600 mg tablet Take 2 Tabs by mouth daily. Therapy completed 03/01/2019 04/23/2022 documented as of this encounter Care Teams Tile Presser Relationship Specialty Start Date End Date Sabrina Jerome NP [address] [place] [phone] PCP - General 03/29/21 documented as of this encounter
--- OUTSIDE RECORDS SUMMARY | 2024-05-05 13:58 | XMS_ITS | Encounter Summary ---
Author Organization [facility] Address [address] [place] [address] Care Team Providers Care Bridge Maintainer Name Role Phone Sabrina Jerome PERSONAL DRIVER Primary Care Provider [phone] Encounter Details Date Type Department Care Team (Late st Contact Info) Description 04/02/2023 Lab Requisition [facility] Pathology & Laboratory Medicine - [address] [address] Outr Resulting Lab, Provider Social History Tobacco [...] Associated Diagnosis Comments T CELL SUBSETS Routine 04/02/2023 9:05 EDT HIV 1 RNA QUANTITATION Routine 04/02/2023 9:05 EDT documented in this encounter Results * HIV 1 RNA QUANTITATION (04/02/2023 9:05 EDT) [facility] HIV RNA Detection, Qual Undetected Undetected copies/mL 04/03/2023 13:[address] [facility] Blood VENOUS BLOOD / Unknown 04/02/2023 9:05 EDT 04/03/2023 8:[address] [facility] - 04/03/2023 13:37 EDT The quantification range of this assay is 20 IU/mL to 10,000,000 IU/mL. ??Testing was performed using the Lucy HIV test ([employer] with the lucy iPosition0 System. Provider Outr Resulting Lab CHEMISTRY & BLOOD GAS ORDERABLES Performing Organization Address City/State/[facility] Co de Phone Number [facility] [address] [place] [address] * (ABNORMAL) T CELL SUBSETS (04/02/2023 9:05 EDT) [facility] % CD3 74 56 - 84 % 04/04/2023 16:52 [facility] % CD4 35 31 - 64 % 04/04/2023 16:52 [facility] % CD8 38 9 - 39 % 04/04/2023 16:52 [facility] Absolute CD3 2,441 840 - 2,669 Cells/uL 04/04/2023 16:52 [facility] Absolute CD4 1,162 488 - 1,734 Cells/uL 04/04/2023 16:52 [facility] Absolute CD8 1,267(H) 154 - 1,097 Cells/uL 04/04/2023 16:52 [facility] 4/8 Ratio 0.92 >=0.90 04/04/2023 16:52 [facility] Blood VENOUS BLOOD / Unknown 04/02/2023 9:05 EDT 04/02/2023 17:21 EDT Provider Outr Resulting Lab IMMUNOLOGY A ND SEROLOGY ORDERABLES [facility] [address] [place] [address] documented in this encounter Visit Diagnoses Not on filedocumented in this encounter Care Teams Bridge Maintainer Relationship Specialty Start Date End Date Sabrina Jerome NP [address] [place] [phone] PCP - General 03/29/21 documented as of this encounter
--- OUTSIDE RECORDS SUMMARY | 2024-05-05 13:58 | XMS_ITS | Encounter Summary ---
Author Organization [facility] Address [address] [place] [address] Care Team Providers Care Outsole Flexer Name Role Phone Sabrina Jerome SIDE GLUER Primary Care Provider Reason for Visit * Reason Comments Medications Refill Encounter Details Date Type Department Care Team (Late st Contact Info) Description 06/28/2022 Refill [facility] Infectious Disease - [address] [address] Lit Pina, DO 111 [facility], [address] [place] [phone] Medications Refill Social History Tobacco Use Types [...] Dispensed Refills Start Date End Da te ODEFSEY tablet Take 1 tablet by mouth every day 90 Tablet 1 06/28/2022 08/21/2023 documented in this encounter Plan of Treatment Not on file documented as of this encounter Visit Diagnoses Not on filedocumented in this encounter Discontinued Medications Medication Sig Discontinue Reason Start Date End Da te emtricitabine-rilpivirine -tenofovir alafenam (ODEFSEY) tablet Take 1 Tab by mouth daily. Reorder 03/01/2019 06/28/2022 hkzlhazyox-xhayogps-sgoxz o ala 200-25-25 mg tablet Take 1 Tab by mouth daily. Reorder 09/17/2017 06/28/2022 documented as of this encounter Care Teams Outsole Flexer Relationship Specialty Start Date End Date Sabrina Jerome NP [address] [place] [phone] PCP - General 03/29/21 documented as of this encounter
--- OUTSIDE RECORDS SUMMARY | 2024-05-05 13:58 | XMS_ITS | Encounter Summary ---
Author Organization [facility] Address [address] [place] [address] Care Team Providers Care Dramatic Critic Name Role Phone None, Provider Primary Care Provider Unavailabl e Reason for Visit * Reason Comments Follow-up Encounter Details Date Type Department Care Team (Late st Contact Info) Description 02/05/2021 9:30 EDT Telemedicine [facility] Infectious Disease - [address] [address] Lit Pina, DO 111 [facility], [address] [place] [address] Asymptomatic HIV infection (HCC-CMS) (Primary [...] as of this encounter Progress Notes * YovaniLit roy, DO - 02/05/2021 0930 EDT I spent [...] odefsey. Very good with adherence. 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 Both parties are on ART and have VL <??20. ?Closed relationship. ??His partner (Fernando) is followed at [facility] as well. ?? Doing well in general but still??not interested in quitting. ? Review of Systems: 10-point review of systems is negative except as noted in the HPI. Past Medical History: ? Past Medical History: Diagnosis Date ??? HIV positive ([facility]) (HCC-CMS) ? Screening colonoscopy 2009 Cryptococcal meninginitis [...] day (Patient not taking: Reported on 09/17/2017) jejcrdduee-cldryqbf-jihtlm ala 200-25-25 mg tablet Take 1 Tab [...] A vaccine in distant past. ??Tdap 2011. ?[place]??Apr 2019, looked good so repeat in 10 [...] encounter Visit Diagnoses Diagnosis Asymptomatic HIV infection (HCC-CMS)- Primary Asymptomatic human immunodeficiency virus (HIV) infection status documented in this encounter Care Teams Dramatic Critic Relationship Specialty Start Date End Date None, Provider PCP - General 03/02/20 03/28/21 documented as of this encounter
--- OUTSIDE RECORDS SUMMARY | 2024-05-05 13:58 | XMS_ITS | Encounter Summary ---
Author Organization [facility] Address [address] [place] [address] Care Team Providers Care Jacquard Lace Weaver Name Role Phone Sabrina Jerome NP Primary Care Provider [phone] Encounter Details Date Type Department Care Team (Latest Contact Info) Description 04/07/2024 Specialty Pharmacy [facility] [address] [place], [place] [address] Frankie Mitchell [facility] Refill Coordination Outreach for HIV Social History Tobacco Use Types [...] on filedocumented in this encounter Care Teams Jacquard Lace Weaver Relationship Specialty Start Date End Date Sabrina Jerome, SOM [address] [place] [phone] PCP - General 03/29/21 documented as of this encounter
--- OUTSIDE RECORDS SUMMARY | 2024-05-05 13:58 | XMS_ITS | Encounter Summary ---
Author Organization [facility] Address [address] [place] [address] Care Team Providers Care Licensing Coordinator Name Role Phone Sabrina Jerome SWIMMING POOL SERVICE TECHNICIAN Primary Care Provider [phone] Reason for Visit * Reason Comments Other Encounter Details Date Type Department Care Team ([facility] st Contact Info) Description 01/04/2022 Refill [facility] Infectious Disease [address] [address] Lit Pina, DO [address] [facility], [address] [place] [address] Other Social History Tobacco Use Types Packs/Day Years [...] on filedocumented in this encounter Care Teams Licensing Coordinator Relationship Specialty Start Date End Date Sabrina Jerome, SOM [address] [place] [phone] PCP - General 03/29/21 documented as of this encounter
--- OUTSIDE RECORDS SUMMARY | 2024-05-05 13:58 | XMS_ITS | Encounter Summary ---
Author Organization [facility] Address [address] [place] [address] Care Team Providers Care Poker Manager Name Role Phone Sabrina Jerome W[employer]S SUPERINTENDENT Primary Care Provider [phone] Encounter Details Date Type Department Care Team (Late st Contact Info) Description 09/19/2022 Lab Requisition [facility] Pathology & Laboratory Medicine - [address] [address] Outr Resulting Lab, Provider Social History Tobacco [...] Diagnosis Comments HCV RNA DETECT QUANT Routine 09/19/2022 11:03 EST documented in this encounter Results * HCV RNA DETECT QUANT (09/19/2022 11:03 EST) HCV RNA Qualitative Undetected Undetected 09/20/2022 13:04 EST [facility] Blood VENOUS BLOOD / Unknown 09/19/2022 11:03 EST 09/19/2022 21:55 EST Narrative [facility] - 09/20/2022 13:04 EST The quantification range of this assay is 15 IU/mL to 100,000,000 IU/mL. Testing was performed using the Lucy HCV test ([employer] with the lucy [id number] System. Provider Outr Resulting Lab CHEMISTRY & BLOOD GAS ORDERABLES [facility] [address] [place] [address] documented in this encounter Visit Diagnoses Not on filedocumented in this encounter Care Teams Poker Manager Relationship Specialty Start Date End Date Sabrina Jerome NP [address] [place] [phone] PCP - General 03/29/21 documented as of this encounter
--- OUTSIDE RECORDS SUMMARY | 2024-05-05 13:58 | XMS_ITS | Encounter Summary ---
Author Organization [facility] Address [address] [place] [address] Care Team Providers Care Exhaust Worker Name Role Phone Sabrina Jerome TOBACCO WAREHOUSE AGENT Primary Care Provider [phone] Reason for Visit * Reason Comments Medication Questions Encounter Details Date Type Department Care Team (Latest Contact Info) Description 09/30/2023 Specialty Pharmacy [facility] [address] [place], [place] [address] Jori Mitchell RPH Refill Coordination Outreach for HIV, Initial Clinical Follow-up (by 6 weeks) for HIV Social History Tobacco Use Types [...] as of this encounter Progress Notes * Jori Mitchell RPH - 09/30/2023 9328 EDT [facility] Infectious Disease Clinic Guanakito Cedillo is a 53 y.o. male being treated with raltegravir (Isentress) 1200 mg once daily plus drybozxixsipn-pacbdndxeiz-kviqywypm alafenamide (Odefsey) once daily for HIV. The patient will continue this therapy until lack of efficacy after an adequate medication trial or unacceptable adverse effects support discontinuation. Received incoming call from Greg, Guanakito's partner, who stated that Guanakito will be starting bupropion for smoking cessation and would like this added to his medication list. Greg expressed appreciation and had no further questions or concerns at this time. Remarks that Guanakito is doing well on his Odefsey and Isentress with no missed doses or perceived side effects - no noted issues with [facility] delivery. Greg had no further questions or concerns at this time. Contact Method for Follow Up: Telephone Medications: Current Outpatient Medications Medication Instructions acetaminophen (TYLENOL EXTRA STRENGTH) 1,000 mg, oral, EVERY 12 HOURS PRN buPROPion (WELLBUTRIN SR) 150 mg, oral, 2 TIMES DAILY Cholecalciferol (Vitamin D3) 400 Units, oral, DAILY doxazosin (CARDURA) 4 mg tablet Take 1 tablet by mouth every day ftyzxbzoxsdwv-qxyptptsyeo-pznmmwkeq alafenam (ODEFSEY) tablet 1 Tablet, oral, DAILY, Take with food. lisinopriL (PRINIVIL) 10 mg, oral, DAILY raltegravir (ISENTRESS HD) 1,200 mg, oral, DAILY I completed a complete review of the patient's current medical record, including medications, allergies and immunizations. There are no pertinent drug-drug interaction(s) at this time. Therapeutic Goals: suppress plasma HIV RNA and preserve immunologic function, as measured by CD4 count Labs: HIV RNA Detection, Qual (copies/mL) Date Value 04/02/2023 Undetected 09/19/2022 Undetected 03/28/2022 Undetected HIV 1 RNA Quant (copies/mL) Date Value 08/11/2019 0 Absolute CD4 Date Value 04/02/2023 1,162 Cells/uL 09/19/2022 1,186 Cells/uL 03/28/2022 957 Cells/uL 04/21/2001 13 per UL (L) CD4 (%) Date Value 04/21/2001 2 (L) % CD4 (%) Date Value 04/02/2023 35 09/19/2022 36 03/28/2022 33 Creatinine (mg/dl) Date Value 04/21/2001 0.8 Lab Results Component Value Date AST 101 (H) 04/21/2001 ALT 195 (H) 04/21/2001 Total Alkaline Phosphatase 102 04/21/2001 Bilirubin, Total 0.4 04/21/2001 Albumin 3.3 04/21/2001 Total Protein 6.5 04/21/2001 Adherence: Patient has missed no doses since last follow-up, as determined via partner's report. Side effects/toxicities: Patient has had no perceived side effects or toxicities, as determined via partner's report. Health Maintenance: Health Maintenance Due Topic Date Due Hepatitis B Vaccine (1 of 3 - 3-dose series) Never done COVID-19 Vaccine (1) Never done Pneumococcal Immunization (2 of 2 - PPSV23 or PCV20) 08/23/2015 Assessment: Guanakito Cedillo is meeting goals of therapy and therapeutic benefit is achieved. Education Provided: Continue raltegravir 1200 mg once daily plus tqjhsmvfhjbfq-xfftumckttr-oqelsecdn alafenamide (Odefsey) once daily. Follow-up planned: - Clinic appointment: scheduled with Dr. Lit Pina on 11/10/23 - Laboratory monitoring: to be ordered by Dr. Pina - Next refill due by 10/13/23 Jori Mitchell, PharmD Ambulatory Pharmacist [facility] Infectious Disease 09/30/2023 documented in this encounter Miscellaneous Notes * Addendum Note - Jori Mitchell RPH - 09/30/2023 1548 EDTAddended by: JORI MITCHELL on: 10/27/2023 10:35 Modules accepted: Orders documented in this encounter Plan of Treatment Not on file documented as of this encounter Visit Diagnoses Not on filedocumented in this encounter Historical Medications * This list may reflect changes made after this encounter. Medication Sig Dispensed Refills Start Date End Date buPROPion (WELLBUTRIN SR) 150 mg SR tablet Take 1 Tablet by mouth 2 times daily. 0 10/27/2023 added in this encounter Care Teams Exhaust Worker Relationship Specialty Start Date End Date Sabrina Jerome, SOM [address] [place] [phone] PCP - General 03/29/21 documented as of this encounter
--- OUTSIDE RECORDS SUMMARY | 2024-05-05 13:58 | XMS_ITS | Encounter Summary ---
Author Organization [facility] Address [address] [place] [address] Care Team Providers Care Manager Environmental Name Role Phone Sabrina Jerome WORD PROCESSING SPECIALIST Primary Care Provider [phone] Encounter Details Date Type Department Care Team (Late st Contact Info) Description 12/12/2023 Lab Requisition [facility] Pathology & Laboratory Medicine - [address] [address] Outr Resulting Lab, Provider Social History Tobacco [...] Procedure Name Priority Date/Time Associated Diagnosis Comments HIV 1 RNA QUANTITATION Routine 12/12/2023 7:19 EDT documented in this encounter Results * HIV 1 RNA QUANTITATION (12/12/2023 7:19 EDT) HIV RNA Detection, Qual Undetected Undetected copies/mL 12/15/2023 12:20 EDT [facility] Blood VENOUS BLOOD / Unknown 12/12/2023 7:19 EDT 12/12/2023 17:14 EDT Narrative [facility] - 12/15/2023 12:20 EDT The quantification range of this assay is 20 IU/mL to 10,000,000 IU/mL. ??Testing was performed using the Lucy HIV test ([employer] with the lucy [employer] Private0 System. Provider Outr Resulting Lab CHEMISTRY & BLOOD GAS ORDERABLES [facility] [address] [place] [address] documented in this encounter Visit Diagnoses Not on filedocumented in this encounter Care Teams Manager Environmental Relationship Specialty Start Date End Date Sabrina Jerome NP [address] [place] [address] PCP - General 03/29/21 documented as of this encounter
--- OUTSIDE RECORDS SUMMARY | 2024-05-05 13:58 | XMS_ITS | Encounter Summary ---
Author Organization Health system Address [address] [place] [address] Care Team Providers Care Candle Wrapper Name Role Phone Sabrina Jerome ELEMENT WINDING MACHINE TENDER Primary Care Provider [phone] Encounter Details Date Type Department Care Team (Latest Contact Info) Description 11/03/2023 Specialty Pharmacy [facility] [address] [place], [place] [address] Jori Mitchell [facility] Refill Coordination Outreach for HIV, Initial Clinical [...] as of this encounter Miscellaneous Notes * Addendum Note - Jori Mitchell RP - 11/03/2023 1435 EDTAddended by: JORI MITCHELL on: 11/11/2023 09:46 Modules accepted: Orders documented in this encounter Plan of Treatment Not on file documented as of this encounter Visit Diagnoses Not on filedocumented in this encounter Historical Medications * This list may reflect changes made after this encounter. Medication Sig Dispensed Refills Start Date End Date celecoxib (CELEBREX) 100 mg capsule Take 1 Capsule by mouth daily. 07/29/2023 added in this encounter Care Teams Candle Wrapper Relationship Specialty Start Date End Date Sabrina Jerome NP [address] [place] [address] PCP - General 03/29/21 documented as of this encounter
--- OUTSIDE RECORDS SUMMARY | 2024-05-05 13:58 | XMS_ITS | Encounter Summary ---
Author Organization [facility] Address [address] [place] [address] Care Team Providers Care Associate Loan Officer Name Role Phone Sabrina Jerome CHINESE INSTRUCTOR Primary Care Provider [phone] Reason for Visit * Reason Comments Follow-up Encounter Details Date Type Department Care Team (Late st Contact Info) Description 04/08/2022 9:00 EDT Telemedicine [facility] Infectious Disease - [address] [address] Lit iPna, DO [address] [facility], [address] [place] [id number] Asymptomatic HIV infection (HCC) (Primary Dx) Social History Tobacco Use Types [...] Progress Notes * Lit Pina, DO - 04/08/2022 0900 EDT [...] patient???s medical or mental health care. HPI: ??Snide??is a 52??y.o.??male with history significant for HIV who presents with routine follow up. HIV diagnosed in 2001 when he presented with cryptococcal meningitis.??Most recent CD4 done in Mar 2022 957, VL <20.?Pt on raltegravir 600mg two tabs daily and odefsey. Very good with adherence. 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 Both parties are on ART and have VL <??20. ?Closed relationship. ??His partner (Fernando) is followed at [facility] as well and they are typically seen together. ?? Doing well in general but still??not interested in quitting. ?? Getting work up for chest pain, work up neg to date. ?? Review of Systems: [...] day (Patient not taking: Reported on 09/17/2017) nkumkcrexe-wfvmkynr-ogmnxl ala 200-25-25 mg tablet Take 1 Tab [...] ??Tdap 2011, needs booster (will get at [facility] next month). ?Andes??Apr 2019, looked good so repeat in 10 years.?Pneumovax 2018, prevnar 2014. COVID 2020, due for booster but patient declines. Flu shotOct 2021 ?? 5) HTN per [facility], sees Sabrina Jerome with good regularity. ?? [...] status documented in this encounter Care Teams Associate Loan Officer Relationship Specialty Start Date End Date Sabrina Jerome NP [address] [place] [phone] PCP - General 03/29/21 documented as of this encounter
--- OUTSIDE RECORDS SUMMARY | 2024-05-05 13:58 | XMS_ITS | Encounter Summary ---
Author Organization [facility] Address [address] [place] [address] Care Team Providers Care Gravure Printing Machinist Name Role Phone Sabrina Jerome SPECIAL CERTIFICATE DICTATOR Primary Care Provider [phone] Encounter Details Date Type Department Care Team (Late st Contact Info) Description 04/02/2023 Lab Requisition [facility] Pathology & Laboratory Medicine - [address] [address] Outr Resulting Lab, Provider Social History Tobacco [...] RNA DETECT QUANT Routine 04/02/2023 9:05 EDT documented in this encounter Results * HCV RNA DETECT QUANT (04/02/2023 9:05 EDT) HCV RNA Qualitative Undetected Undetected 04/03/2023 13:36 EDT [facility] Blood VENOUS BLOOD / Unknown 04/02/2023 9:05 EDT 04/02/2023 17:16 EDT Narrative [facility] - 04/03/2023 13:36 EDT The quantification range of this assay is 15 IU/mL to 100,000,000 IU/mL. Testing was performed using the Lucy HCV test ([employer] with the lucy Conductrics0 System. Provider Outr Resulting Lab CHEMISTRY & BLOOD GAS ORDERABLES [facility] [address] [place] [address] documented in this encounter Visit Diagnoses Not on filedocumented in this encounter Care Teams Gravure Printing Machinist Relationship Specialty Start Date End Date Sabrina Jerome NP [address] [place] [address] PCP - General 03/29/21 documented as of this encounter
--- OUTSIDE RECORDS SUMMARY | 2024-05-05 13:58 | XMS_ITS | Encounter Summary ---
Author Organization [facility] Address [address] [place] [address] Care Team Providers Care Insulation Estimator Name Role Phone None, Provider Primary Care Provider Sabrina Kiran LIVESTOCK PRODUCER Primary Care Provider [phone] Encounter Details Date Type Department Care Team (Late st Contact Info) Description 02/01/2021 Lab Requisition [facility] Pathology & Laboratory Medicine - [address] [address] Outr Resulting Lab, Provider Social History Tobacco [...] Associated Diagnosis Comments T CELL SUBSETS Routine 02/01/2021 8:29 EDT HIV 1 RNA QUANTITATION Routine 02/01/2021 8:29 EDT documented in this encounter Results * HIV 1 RNA QUANTITATION (02/01/2021 8:29 EDT) [facility] HIV RNA Detection, Qual Undetected Undetected copies/mL 02/05/2021 15:08 EDT [facility] Blood VENOUS BLOOD / Unknown 02/01/2021 8:29 EDT 02/01/2021 20:29 EDT Narrative [facility] - 02/05/2021 15:08 EDT The quantification range of this assay is 20 IU/mL to 10,000,000 IU/mL. ??Testing was performed on the PADILLA Ampliprep/PADILLA TaqMan HIV v2.0 ([employer] Provider Outr Resulting Lab CHEMISTRY & BLOOD GAS ORDERABLES [facility] [address] [place] [address] * (ABNORMAL) T CELL SUBSETS (02/01/2021 8:29 EDT) [facility] % CD3 70 56 - 84 % 02/04/2021 19:19 [facility] % CD4 31 31 - 64 % 02/04/2021 19:19 [facility] % CD8 38 9 - 39 % 02/04/2021 19:19 [facility] Absolute CD3 1,607 840-2,669 Cells/uL 02/04/2021 19:19 [facility] Absolute CD4 717 488-1,734 Cells/uL 02/04/2021 19:19 [facility] Absolute CD8 878 154-1,097 Cells/uL 02/04/2021 19:19 [facility] 4/8 Ratio 0.82(L) >=0.90 02/04/2021 19:19 [facility] Blood VENOUS BLOOD / Unknown 02/01/2021 8:29 EDT 02/01/2021 20:29 EDT Provider Outr Resulting Lab IMMUNOLOGY A ND SEROLOGY ORDERABLES [facility] [address] [place] [address] documented in this encounter Visit Diagnoses Not on filedocumented in this encounter Care Teams Insulation Estimator Relationship Specialty Start Date End Date None, Provider PCP - General 03/02/20 03/28/21 Sabrina Jerome, LIVESTOCK PRODUCER [address] [place] [address] PCP - General 03/29/21 documented as of this encounter
--- OUTSIDE RECORDS SUMMARY | 2024-05-05 13:58 | XMS_ITS | Encounter Summary ---
Author Organization [facility] Address [address] [place] [address] Care Team Providers Care Manager Php Name Role Phone Sabrina Jerome WOOD FURNITURE ASSEMBLER Primary Care Provider [phone] Encounter Details Date Type Department Care Team (Late st Contact Info) Description 07/23/2021 Lab Requisition [facility] Pathology & Laboratory Medicine - [address] [address] Outr Resulting Lab, Provider Social History Tobacco [...] Associated Diagnosis Comments T CELL SUBSETS Routine 07/23/2021 7:45 EST HIV 1 RNA QUANTITATION Routine 07/23/2021 7:45 EST documented in this encounter Results * HIV 1 RNA QUANTITATION (07/23/2021 7:45 EST) [facility] HIV RNA Detection, Qual Undetected Undetected copies/mL 07/26/2021 13:09 [facility] Blood VENOUS BLOOD / Unknown 07/23/2021 7:45 EST 07/23/2021 16:30 EST [facility] - 07/26/2021 13:09 EST New platform in use 02/05/2021 The quantification range of this assay is 20 IU/mL to 10,000,000 IU/mL. ??Testing was performed using the Lucy HIV test ([employer] with the lucy PK Clean0 System. Provider Outr Resulting Lab CHEMISTRY & BLOOD GAS ORDERABLES Performing Organization Address City/State/[facility] Co de Phone Number [facility] [address] [place] [address] * (ABNORMAL) T CELL SUBSETS (07/23/2021 7:45 EST) [facility] % CD3 69 56 - 84 % 07/24/2021 14:20 [facility] % CD4 31 31 - 64 % 07/24/2021 14:20 [facility] % CD8 38 9 - 39 % 07/24/2021 14:20 [facility] Absolute CD3 2,032 840-2,669 Cells/uL 07/24/2021 14:20 [facility] Absolute CD4 904 488-1,734 Cells/uL 07/24/2021 14:20 [facility] Absolute CD8 1,111(H) 154-1,097 Cells/uL 07/24/2021 14:20 [facility] 4/8 Ratio 0.81(L) >=0.90 07/24/2021 14:20 [facility] Blood VENOUS BLOOD / Unknown 07/23/2021 7:45 EST 07/24/2021 8:42 EST Provider Outr Resulting Lab IMMUNOLOGY A ND SEROLOGY ORDERABLES [facility] [address] [place] [address] documented in this encounter Visit Diagnoses Not on filedocumented in this encounter Care Teams Manager Php Relationship Specialty Start Date End Date Sabrina Jerome, WOOD FURNITURE ASSEMBLER [address] [place] [address] PCP - General 03/29/21 documented as of this encounter
--- OUTSIDE RECORDS SUMMARY | 2024-05-05 13:58 | XMS_ITS | Encounter Summary ---
Author Organization [facility] Address [address] [place] [address] Care Team Providers Care Order Management Specialist Name Role Phone Sabrina Jerome NP Primary Care Provider [phone] Encounter Details Date Type Department Care Team (Latest Contact Info) Description 03/03/2024 Specialty Pharmacy [facility] [address] [place], [place] [id number] Frankie Mitchell [facility] Refill Coordination Outreach for HIV Social History [...] on filedocumented in this encounter Care Teams Order Management Specialist Relationship Specialty Start Date End Date Sabrina Jerome, SOM [address] [place] [address] PCP - General 03/29/21 documented as of this encounter
--- OUTSIDE RECORDS SUMMARY | 2024-05-05 13:58 | XMS_ITS | Encounter Summary ---
Author Organization [facility] Address [address] [place] [address] Care Team Providers Care Neurophysiologist Name Role Phone Sabrina Jerome NP Primary Care Provider [phone] Encounter Details Date Type Department Care Team (Latest Contact Info) Description 02/06/2024 Specialty Pharmacy [facility] [address] [place], [place] [phone] Frankie Mitchell [facility] Refill Coordination Outreach for HIV [...] on filedocumented in this encounter Care Teams Neurophysiologist Relationship Specialty Start Date End Date Sabrina Jerome, SOM [address] [place] [address] PCP - General 03/29/21 documented as of this encounter
--- OUTSIDE RECORDS SUMMARY | 2024-05-05 13:58 | XMS_ITS | Encounter Summary ---
Author Organization [facility] Address [address] [place] [address] Care Team Providers Care Turning Machine Operator Name Role Phone Sabrina Jerome NP Primary Care Provider [phone] Encounter Details Date Type Department Care Team (Latest Contact Info) Description 11/28/2023 Specialty Pharmacy [facility] [address] [place], [place] [address] Frankie Mitchell [facility] Clinical Follow-up (2x annually) for HIV, Refill Coordination Outreach for HIV Social History [...] on filedocumented in this encounter Care Teams Turning Machine Operator Relationship Specialty Start Date End Date Sabrina Jerome NP [address] [place] [address] PCP - General 03/29/21 documented as of this encounter
--- OUTSIDE RECORDS SUMMARY | 2024-05-05 13:58 | XMS_ITS | Encounter Summary ---
Author Organization [facility] Address [address] [place] [address] Care Team Providers Care Tile Burner Name Role Phone Sabrina Jerome INCINERATOR OPERATOR Primary Care Provider [phone] Encounter Details Date Type Department Care Team (Late st Contact Info) Description 09/19/2022 Lab Requisition [facility] Pathology & Laboratory Medicine - [address] [address] Outr Resulting Lab, Provider Social History Tobacco [...] Associated Diagnosis Comments T CELL SUBSETS Routine 09/19/2022 11:03 EST HIV 1 RNA QUANTITATION Routine 09/19/2022 11:03 EST documented in this encounter Results * HIV 1 RNA QUANTITATION (09/19/2022 11:03 EST) [facility] HIV RNA Detection, Qual Undetected Undetected copies/mL 09/23/2022 14:44 EDT [facility] Blood VENOUS BLOOD / Unknown 09/19/2022 11:03 EST 09/19/2022 21:55 EST [facility] - 09/23/2022 14:44 EDT The quantification range of this assay is 20 IU/mL to 10,000,000 IU/mL. ??Testing was performed using the Lucy HIV test ([employer] with the lucy Videostrip0 System. Provider Outr Resulting Lab CHEMISTRY & BLOOD GAS ORDERABLES Performing Organization Address City/State/[facility] Co de Phone Number [facility] [address] [place] [address] * (ABNORMAL) T CELL SUBSETS (09/19/2022 11:03 EST) [facility] % CD3 74 56 - 84 % 09/20/2022 15:57 [facility] % CD4 36 31 - 64 % 09/20/2022 15:57 [facility] % CD8 37 9 - 39 % 09/20/2022 15:57 [facility] Absolute CD3 2,421 840 - 2,669 Cells/uL 09/20/2022 15:57 [facility] Absolute CD4 1,186 488 - 1,734 Cells/uL 09/20/2022 15:57 [facility] Absolute CD8 1,218(H) 154 - 1,097 Cells/uL 09/20/2022 15:57 [facility] 4/8 Ratio 0.97 >=0.90 09/20/2022 15:57 [facility] Blood VENOUS BLOOD / Unknown 09/19/2022 11:03 EST 09/19/2022 21:55 EST Provider Outr Resulting Lab IMMUNOLOGY A ND SEROLOGY ORDERABLES [facility] [address] [place] [address] documented in this encounter Visit Diagnoses Not on filedocumented in this encounter Care Teams Tile Burner Relationship Specialty Start Date End Date Sabrina Jerome, SOM [address] [place] [phone] PCP - General 03/29/21 documented as of this encounter
--- OUTSIDE RECORDS SUMMARY | 2024-05-05 13:58 | XMS_ITS | Clinical Summary ---
Author Organization [facility] Address [address] [place] [address] Care Team Providers Care Leather Coverer Name Role Phone Sabrina Jerome CREATIVE COORDINATOR Primary Care Provider [phone] Allergies Active Allergy Reactions Criticality Noted Date [...] ine-tenofovir alafenam (ODEFSEY) tabletIndications:Acqu ired immunodeficiency syndrome (HCC-CMS) Take 1 Tablet by mouth daily. Take with food. 90 Tablet 3 08/21/2023 Active raltegravir (ISENTRESS HD) 600 mg tabletIndications:Acqu ired immunodeficiency syndrome (HCC-CMS) Take 2 Tablets by [...] 06/2015 Quantiferon neg 03/2014 Acquired immunodeficiency syndrome ([facility]) Overview: HIV/AIDS - h/o cryptococcal meningitis [...] RAL/3TC/TDF/ATVr Chronic active type B viral hepatitis ([facility]) 01/25/2010 Chronic hepatitis C ([facility]) 01/25/2010 Overview: Never treated HCV RNA not detectable Unable to genotype 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 Alopecia 01/25/2010 Encounters Date Type Department Care Team Description 05/05/2024 Specialty Pharmacy [facility] [address] [place] [address] Frankie Mitchell RPH Started Refill Coordination Outreach for HIV 04/07/2024 Specialty Pharmacy [facility] [address] [place] [address] Frankie Mitchell RPH Refill Coordination Outreach for HIV 03/03/2024 Specialty Pharmacy [facility] [address] [place] [address] Frankie Mitchell [facility] Refill Coordination Outreach for HIV 02/06/2024 Specialty Pharmacy [facility] [address] [place] [address] Frankie Mitchell, [facility] Refill Coordination Outreach for HIV from Last 3 Months Immunizations Name Administration Dates Next Due Influenza Vaccine =>1yo Spli t Preservative Free IM 03/19/2013 Influenza Vaccine Quad (AFLU ANDER) PF 0.5 ml IM (3 yrs+) 03/12/2017,06/28/2015,03/30/2014 Pneumococcal Conjugate Vacci ne 13-Valent (PCV13) (PREVNAR-13) 0.5 mL IM (6 wks+) 06/28/2015 Tdap Vaccine =>5YO IM 10/02/2011 Medical History Medical History Date Comments Screening colonoscopy 2009 HIV positive ([facility]) Social History Tobacco Use Types Packs/Day [...] on file Sexual Orientation Not on file Obstetrics History Last Filed Vital Signs Vital Sign Reading [...] Date Last Done Comments COVID-19 Vaccine (#1) 01/18/1973 Hepatitis B Vaccine (1 of 3 - 19+ 3-dose series) 01/18/1987 Pneumococcal Immunization (2 of 2 - PPSV23 or PCV20) 08/23/2015 06/28/2015 Hepatitis C Screen Completed 04/02/2023, 0 09/19/2022, 07/27/2020, Additional history exists Procedures Procedure Name Priority Date/Time Associated Diagnosis Comments HCV RNA DETECT QUANT Routine 04/02/2023 9:05 EDT from Last 3 Months or Most Recently Relevant to Health Maintenance Results * HCV RNA DETECT QUANT (04/02/2023 9:05 EDT) HCV RNA Qualitative Undetected Undetected 04/03/2023 13:36 EDT [facility] Blood VENOUS BLOOD / Unknown 04/02/2023 9:05 EDT 04/02/2023 17:16 EDT Narrative [facility] - 04/03/2023 13:36 EDT The quantification range of this assay is 15 IU/mL to 100,000,000 IU/mL. Testing was performed using the Lucy HCV test ([employer] with the lucy [id number] System. Provider Outr Resulting Lab CHEMISTRY & BLOOD GAS ORDERABLES [facility] [address] [place] [address] from Last 3 Months or Most Recently Relevant to Health Maintenance Care Teams Leather Coverer Relationship Specialty Start Date End Date Sabrina Jerome NP [address] [place] [id number] PCP - General 03/29/21
--- OUTSIDE RECORDS SUMMARY | 2024-05-05 13:58 | XMS_ITS | Encounter Summary ---
Author Organization [facility] Address [address] [place] [address] Care Team Providers Care Peanut Grader Name Role Phone Sabrina Jermoe TAR POT MAN Primary Care Provider [phone] Reason for Visit * Reason Comments Follow-up Encounter Details Date Type Department Care Team (Late st Contact Info) Description 04/07/2023 9:30 EDT Telemedicine [facility] Infectious Disease [address] [address] Lit Pina, DO [address] [facility], [facility] [address] [place] [address] Asymptomatic HIV infection (HCC-CMS) (Primary [...] Progress Notes * Lit Pina, DO - 04/07/2023 0930 EDT Division of Infectious Disease Follow up/Progress Note 04/07/23 8:33 TELEMEDICINE VIDEO VISIT Today's visit was provided through telemedicine video conferencing: The location of the patient : [facility] The location of the provider: [facility] The following staff and their role did [...] in patient???s medical or mental health care. I spent a total of 35 minutes on the date of this encounter meeting with the patient and reviewing documentation/coordinating care as described in the above note. No procedures were performed at the time of the visit. HPI: ??Snide??is a 53??y.o.??male with history significant for HIV who presents with routine follow up. 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 ?Pt on raltegravir 600mg two tabs daily and odefsey. Very good with adherence. 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 ?Closed relationship. ??His partner??(Fernando)??is followed at [facility] as well??and they are typically seen together. ?? Busy [...] day (Patient not taking: Reported on 09/17/2017) ixckeomumh-xavgmwst-jqqfkl ala 200-25-25 mg tablet Take 1 Tab [...] Physical exam:??Deferred as this is a zoom visit.? 1) HIV, on odefsey and ralteg 1200mg PO daily.?Seems comfortable with this regimen. ?? -HIV VL??Mar 2023 < 20, CD4 Mar 2023 1,162, ??He gets??90 days at a time??for ART supply so doing well but he may be interested in converting to mail order pharmacy to help sync up his partner'sHIV meds/supply concerns OI prophy NA HCV/HBV: ??Natural infection with both, both appeared cleared GC/chlamydia testing: ??Pt in closed relationship for years, will defer for now Need to see in 6 months for next eval, just needs HIV VL at that time. ?? 2) HBV in past, needs to always stay on TAF/3TC based regimen ?? 3) Active smoking; was down down to 3-4 cigs daily but now smoking about a half a pack a day. Primary care is restarting Wellbutrin today which hopefully can help the patient reduce cigarettes again. ?? 4) Prev med:?menactra UTD.?Shingrix UTD x 2. ?Hep A vaccine in distant past. ??Td 2021,?[place]??Apr 2019, looked good so repeat in 10 years.?Pneumovax 2018, prevnar 2014.?COVID 2020, due for booster??but patient declines again today and doesn't trust the CDC. ??Flu shot ?? 5) HTN per PCM, sees Sabrina [...] status documented in this encounter Care Teams Peanut Grader Relationship Specialty Start Date End Date Sabrina Jerome NP [address] [place] [address] PCP - General 03/29/21 documented as of this encounter
--- OUTSIDE RECORDS SUMMARY | 2024-05-05 13:58 | XMS_ITS | Encounter Summary ---
Author Organization [facility] Address [address] [place] [address] Care Team Providers Care Post Form Remover Name Role Phone Sabrina Jerome NP Primary Care Provider Encounter Details Date Type Department Care Team (Latest Contact Info) Description 12/22/2023 Specialty Pharmacy [facility] [address] [place], [place] [address] Frankie Mitchell [facility] Refill Coordination Outreach for HIV Social History [...] on filedocumented in this encounter Care Teams Post Form Remover Relationship Specialty Start Date End Date Sabrina Jerome, SOM [address] [place] [address] PCP - General 03/29/21 documented as of this encounter
--- OUTSIDE RECORDS SUMMARY | 2024-05-05 13:58 | XMS_ITS | Encounter Summary ---
Author Organization [facility] Address [address] [place] [address] Care Team Providers Care Quality Control Tech Raw Materials Name Role Phone Sabrina Jerome NP Primary Care Provider [phone] Encounter Details Date Type Department Care Team (Latest Contact Info) Description 05/05/2024 Specialty Pharmacy [facility] [address] [place], [place] [address] Frankie Mitchell RPH Started Refill Coordination Outreach for HIV Social History [...] on filedocumented in this encounter Care Teams Quality Control Tech Raw Materials Relationship Specialty Start Date End Date Sabrina Jerome, SOM [address] [place] [phone] PCP - General 03/29/21 documented as of this encounter
--- OUTSIDE RECORDS SUMMARY | 2024-05-05 13:59 | XMS_ITS | Encounter Summary ---
Author Organization [facility] Address [address] [place] [address] Care Team Providers Care Tightening Machine Operator Name Role Phone Hanane Pollock NP Primary Care Provider [phone] Reason for Visit * Reason Comments Other Encounter Details Date Type Department Care Team (Late st Contact Info) Description 01/06/2017 Refill [facility] Infectious Disease - [address] [address] Juli Franz MD Other Social History Tobacco Use Types Packs/Day Years Used Date Smoking Tobacco: Every Day Cigarettes Smokeless Tobacco: Never Alcohol Use Standard Drinks/Week Comments Yes 2 (1 standard drink = 0.6 oz pur e alcohol) 1 drink every 2 weeks Sex and Gender Information Value Date Recorded [...] Dispensed Refills Start Date End Da te doxazosin (CARDURA) 4 mg tablet Take 1 tablet by mouth every day 30 Tab 01/06/2017 02/14/2017 ODEFSEY 200-25-25 mg tablet Take 1 tablet by mouth every day 30 Tab 01/06/2017 02/14/2017 documented in this encounter Miscellaneous Notes * Telephone Encounter - Ceci Fletcher RN - 01/06/2017 1724 EDT E-RX Odefsy and Cardura to [facility] pharmacy in [place]. Patient is seen in [facility]. documented in this encounter Plan of Treatment Not on file documented as of this encounter Visit Diagnoses Diagnosis Acquired immunodeficiency syndrome (HCC-CMS)- Primary Human immunodeficiency virus [HIV] disease documented in this encounter Discontinued Medications Medication Sig Discontinue Reason Start Date End Da te varenicline (CHANTIX ZULMA) 0.5 mg (11)- 1 mg (42) tablet Take one 0.5mg tablet once daily x 3 days then take one 0.5mg tablet twice daily x 4 days then take one 1mg tablet twice daily Patient Stopped Taking 06/30/2015 01/06/2017 nzltjcfssd-cclmfueb-rc nofo ala 200-25-25 mg tablet Take 1 Tab by mouth daily. Reorder 11/06/2016 01/06/2017 doxazosin (CARDURA) 4 mg tablet Take 1 Tab by mouth daily. Reorder 11/06/2016 01/06/2017 documented as of this encounter Care Teams Tightening Machine Operator Relationship Specialty Start Date End Date Hanane Pollock NP [facility] [address] [place] [address] PCP - General 01/30/09 02/23/19 documented as of this encounter
--- OUTSIDE RECORDS SUMMARY | 2024-05-05 13:59 | XMS_ITS | Encounter Summary ---
Author Organization [facility] Address [address] [place] [address] Care Team Providers Care Clean Rice Broker Name Role Phone Hanane Pollock NP Primary Care Provider [phone] Reason for Referral * Consult (Routine/Next Available) - Specialty Report Received Specialty Diagnoses / Procedures Referred By Ezequiel arita Referred To Contact General Surgery Diagnoses Perianal mass Juli Franz MD [address] [place] [address] Bharat Dowd MD [address] [facility], [address] [place] [address] Referral ID Status Reason Start Date Expiration Date Visits Requested Visits Authorized [id number] Specialty Report Received Specialty Services Required 5 1 1 Question Answer Reason for Request: HIV + with nl CD4 and fully suppressed virus on HAART, now with perianal nodule and hematochezia Comments Pt needs biopsy of nodule to r/o tumor. Also needs eval for intermittent hematochezia. No active bleeding at present. Last colonoscopy was 2008. Reason for Visit * Reason Comments Follow-up Encounter Details Date Type Department Care Team (Late st Contact Info) Description 06/28/2015 9:30 EST Office Visit [facility] Infectious Disease - [address] [address] Juli Franz MD Decreased hemoglobin (Primary Dx); Hematochezia; Encounter for long-term (current) use of high-risk medication; AIDS ([facility]); Perianal mass Social History Tobacco Use Types Packs/Day Years Used Date Smoking Tobacco: Every Day Cigarettes Tobacco Cessation:Ready to Q uit: No; Counseling Given: Yes Alcohol Use Standard Drinks/Week Comments No 1 (1 standard drink = 0.6 oz pur e alcohol) socially Sex and Gender Information Value Date Recorded [...] Weight 80.1 kg (176 lb 9.4 oz) 06/28/20152208 E ST Height - - Body Mass Index 26.08 05/23/2011 0832 EST documented in this encounter Ordered Prescriptions Prescription Sig Dispensed Refills Start Date End Da te varenicline (CHANTIX ZULMA) 0.5 mg (11)- 1 mg (42) tablet Take one 0.5mg tablet once daily x 3 days then take one 0.5mg tablet twice daily x 4 days then take one 1mg tablet twice daily 53 Tab 0 06/30/2015 01/06/2017 documented in this encounter Progress Notes * Lavonne Ng - 06/30/2015 1609 EST Faxed lab orders to [facility]. * Juli Franz MD - 06/28/2015 1243 EST [facility] FOLLOWUP NOTE DOS 06/28/2015 Last seen: 12/14/2014 [...] as he broke them and he cannot afford new glasses No VICK No oral lesions, dysphagia [...] 82 Bili 1.49 Alk phos 89 AST/ALT 24/52 Lytes wnl CK 205 HIV PCR undetectable [...] dose adjust his medications at present. Would continue his present meds but will do further evaluation for his creatinine. (See below) . If his creatinine continues to increase we will need to dose adjust his medications. If we were to stop his tenofovir and 3TC he would be at risk for a flare of his hepatitis B. We will need to watch his creatinine closely. He will have repeat blood work next [...] of his hepatitis C; in fact, we werenot able to amplify HCV for genotyping and [...] No risk factors for steatohepatitis except for superintendent marine oil terminal nucleosideanalogue use. We could also be dealing with [...] may need repeat CT of the chest. 6. Perianal nodule - somewhat pedunculated. Soft and mobile. Does not look like a wart. Should be biopsied. 7. BRBPR - does have a collapsed hemorrhoid But no ulcerations and no active bleeding. He had colonoscopy 09/2008 . 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 He did drop his Hct so we will need to follow for recurrent bleeding. 8. Increased Cr - big jump since last labs. He is taking NSAIDS but not frequently. Could have renal toxicity from TDF vs renal disease related to [...] Scheduled Referrals Name Type Priority Associated Diagnoses Orde r Schedule AMB CONS/FOLLOW UP GENERAL SURGERY Outpatient Referral Routine Perianal mass Ordered: 06/30/2015 documented as of this encounter Visit Diagnoses Diagnosis Decreased hemoglobin- Primary Anemia, unspecified Hematochezia Blood in stool Encounter for long-term (current) use of high-risk medication Encounter for long-term (current) use of other medications AIDS (HCC-CMS) Human immunodeficiency virus [HIV] disease Perianal mass Other symptoms involving digestive system documented in this encounter Discontinued Medications Medication Sig Discontinue Reason Start Date End Da te GLUC OHWARD/CHONDRO HOWARD A/VIT C/MN (GLUCOSAMINE CHONDROITIN MAXSTR ORAL) Take 2 Tabs by mouth daily. Patient Stopped Taking 06/28/2015 varenicline (CHANTIX ZULMA) 0.5 mg (11)- 1 mg (42) tablet Take one 0.5mg tablet once daily x 3 days then take one 0.5mg tablet twice daily x 4 days then take one 1mg tablet twice daily Reorder 12/15/2014 06/30/2015 documented as of this encounter Care Teams Clean Rice Broker Relationship Specialty Start Date End Date Hanane Pollock NP [facility] [address] [place] [address] PCP - General 01/30/09 02/23/19 documented as of this encounter
--- OUTSIDE RECORDS SUMMARY | 2024-05-05 13:59 | XMS_ITS | Encounter Summary ---
Author Organization [facility] Address [address] [place] [address] Care Team Providers Care Carbonation Equipment Tender Name Role Phone Hanane Pollock NP Primary Care Provider [phone] Reason for Referral * Radiology Services (Routine/Next Available) - Closed Specialty Diagnoses / Procedures Referred By Contac t Referred To Contact Diagnoses Essential hypertension Procedures RAD US RENAL ARTERY DOPPLER Juli Franz MD [address] [place] [address] Referral ID Status Reason Start Date Expiration Date Visits Re quested Visits Authorized [id number] Closed 11/06/2016 1 1 Reason for Visit * Reason Comments Follow-up Encounter Details Date Type Department Care Team (Late st Contact Info) Description 11/06/2016 9:00 EDT Office Visit [facility] Infectious Disease - [address] [address] Juli Franz MD AIDS (CMS-HCC) (Primary Dx); Essential hypertension; Hepatitis B infection without delta agent without hepatic coma, unspecified chronicity; Chronic hepatitis C without hepatic coma (CMS-HCC); Stress at home; Encounter for long-term current use of high risk medication Social History Tobacco Use Types Packs/Day Years Used Date Smoking Tobacco: Every Day Cigarettes Smokeless Tobacco: Never Tobacco Cessation:Ready to Q uit: No; Counseling [...] tablet Take 1 Tab by mouth daily. 30 Tab 1 11/06/2016 01/06/2017 documented in this encounter Progress Notes * Juli Franz MD - 11/06/2016 0900 EDT [facility] FOLLOWUP NOTE DOS 11/06/2016 Last seen: 02/21/2016 SUBJECTIVE: [place] presents for reevaluation of his HIV disease and his chronic hepatitis B and C. At the time of his last visit he was experiencing headaches and was found to have new hypertension He has been seen at the [facility] since that time and was started [...] none + MJ daily Lives with his detention partner who is also HIV + They [...] to go in for a cleaning in thenear future He says he always has shortness [...] right shoulder. He has trouble rotating his arm across his anterior chest secondary to pain on [...] make a change to decrease risk for detention nephrotoxicity. He has chronic HBV so want [...] labs demonstrated improved creatinine with continued viral suppression.He is continued on the same regimen. His ALT may be up slightly but his viral load remains undetectable and his creatinine is stable. He seems to be tolerating medications well. He just refilled his meds so we do not want to making changes right now. We did discuss the possibility of changing the TDF to TAF. I think we could change his TDF/3TC to TAF/FTC. We discussed the fact that TAF may cause an increase in his LDL and will have to follow his lipid panel. As he is on rilpivirine we could simplify his regimen by giving him Odefsey (rilpivirine/TAF/FTC) once a day and raltegravir twice daily. We can plan to make that change when he is due for his next refill in a month. Then we will plan for him to have repeat blood work and a follow-up with me after he has been on the new regimen for about 3 months. Would check creatinine, liver enzymes, PO4 and HIV PCR at that time. I do not think heis a candidate for dolutegravir because of the potential for increase in his liver enzymes with hisunderlying hepatitis B and C, but also there [...] is not motivated to quit.. Stressed again t hat quitting smoking is the best thing that he could do for his heart. 3. VICK - the headaches that he had at the time of his prior visit seems to have resolved completely.His blood pressure is not under ideal control. His headaches have improved. He feels that the occasional right sided headache that he has is related to eye strain. 4. HTN - as above. He was seen at [facility] was started on lisinopril but he developed palpitations he is now on Cardura. His blood pressure is not adequately controlled so we elected to increase his Cardura to 4 mg a day. I placed new prescription for the 4 mg tablet as he will run out of his2 mg tablets sooner. Encouraged him to follow up at [facility] to have his blood pressure checks so we can continue to titrate his meds. Not [...] 05/2010 was consistent with treated hep B, andthere really was no evidence of activity of his hepatitis C; in fact, we were not able to amplify HCV for genotyping and he has never been treated for his hep C. He has been on therapy for his hep B,and we did not see any evidence of [...] for Chlamydia/GC 11/2015 neg. Has seen the dent ist. 5 Lung nodule - he underwent biopsy [...] motivated to do things. He clearly is understress secondary to conflict in his long-term relationship. I do think he would benefit from seeinga counselor. We discussed the possibility of a marriage counselor but he does not think that his partner will be an honest participant in those sessions. Hanane recommended that he see Juan who is a counselor that works out of [facility] and she will arrange this connection. I also think that he may benefit from a connection with [facility], and that referral can be made through the [facility] 8. Chest pressure - he was having trouble describing what he is feeling. It sounds like the symptoms being continuous and are not effort related. He [...] Scheduled Orders Name Type Priority Associated Diagnoses Orde r Schedule RAD US RENAL ARTERY DOPPLER Imaging Routine Essential hypertension Ordered: 11/06/2016 documented as of this encounter Visit Diagnoses Diagnosis AIDS (HCC-CMS)- Primary Human immunodeficiency virus [HIV] disease Essential hypertension Unspecified essential hypertension Hepatitis B infection without delta agent without hepatic coma, unspecified chronicity Chronic hepatitis C without hepatic coma (HCC-CMS) Chronic hepatitis C without mention of hepatic coma Stress at home Unspecified family circumstance Encounter for long-term current use of high risk medication documented in this encounter Discontinued Medications Medication Sig Discontinue Reason Start Date End Da te doxazosin (CARDURA) 2 mg tablet Take 2 mg by mouth daily. 11/06/2016 documented as of this encounter Historical Medications * This list may reflect changes made after this encounter. Medication Sig Dispensed Refills Start Date End Date doxazosin (CARDURA) 2 mg tablet Take 2 mg by mouth daily. 11/06/2016 added in this encounter Care Teams Carbonation Equipment Tender Relationship Specialty Start Date End Date Hanane Pollock NP [facility] [address] [place] [address] PCP - General 01/30/09 02/23/19 documented as of this encounter
--- OUTSIDE RECORDS SUMMARY | 2024-05-05 13:59 | XMS_ITS | Encounter Summary ---
Author Organization [facility] Address [address] [place] [address] Care Team Providers Care Topographical Drafter Name Role Phone Hanane Pollock NP Primary Care Provider [phone] Reason for Visit * Reason Comments Follow-up Encounter Details Date Type Department Care Team ([facility] st Contact Info) Description 07/20/2014 10:30 EST Office Visit [facility] Infectious Disease - [address] [address] Juli Franz MD AIDS (acquired immune deficiency syndrome) (CMS-HCC) (Primary Dx); Encounter for long-term (current) use of other medications; Chronic hepatitis C without mention of hepatic coma; Tobacco dependence syndrome; Chronic active type B viral hepatitis (CMS-HCC) (HCC-CMS); Leukocytosis Social History Tobacco Use Types Packs/Day Years Used Date Smoking Tobacco: Every Day Cigarettes Tobacco Cessation:Ready to Q uit: No; Counseling Given: Yes Alcohol Use Standard Drinks/Week Comments No 0.8 (1 standard drink = 0.6 oz p ure alcohol) socially Sex and Gender Information Value [...] Dispensed Refills Start Date End Da te tenofovir (VIREAD) 300 mg tabletIndications:AIDS (acquired immune deficiency syndrome) ([facility]),Encounter for long-term (current) use of other medications Take 1 Tab by mouth daily. 30 Tab 3 07/20/2014 05/31/2015 ritonavir (NORVIR) 100 mg tabletIndications:AIDS (acquired immune deficiency syndrome) ([facility]),Encounter for long-term (current) use of other medications Take 1 Tab by mouth every 24 hours. 30 Tab 3 07/20/2014 05/31/2015 Raltegravir (ISENTRESS) 400 mg tabletIndications:AIDS (acquired immune deficiency syndrome) ([facility]),Encounter for long-term (current) use of other medications Take 1 Tab by mouth 2 times daily. 60 Tab 3 07/20/2014 05/31/2015 lamiVUDine (EPIVIR) 300 mg tabletIndications:AIDS (acquired immune deficiency syndrome) ([facility]),Encounter for long-term (current) use of other medications Take 1 Tab by mouth daily. 30 Tab 3 07/20/2014 05/31/2015 atazanavir (REYATAZ) 300 mg capsuleIndications:AIDS (acquired immune deficiency syndrome) ([facility]),Encounter for long-term (current) use of other medications Take 1 Cap by mouth daily. 30 Cap 3 07/20/2014 05/31/2015 documented in this encounter Progress Notes * Lavonne Ng - 07/21/2014 1019 EST Mailed office note, med list and lab orders to Hanane Pollock. * Juli Franz MD - 07/20/2014 1041 EST [facility] FOLLOWUP NOTE DOS 07/20/2014 Last seen: 03/30/2014 [...] 92 Bili 1.19 Alk phos 90 AST/ALT Lytes wnl HIV PCR pending ASSESSMENT AND PLAN: 1. 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 He has done well on his present antiretroviral therapy. I think he has good adherence. His HIV PCR from most recent blood work is pending. He has tolerated the meds well. I have been concerned that his Cr has gone up a bit but it appears juan francisco holding. His phosphorus is holding steady. As [...] have him have repeat blood work and afollowup with myself in the comprehensive care clinic [...] slightly on his recent labs. HBV DNA and HCV RNA undetectable on blood work in 03/2014. He clearly could flare his HCV and his HBV couldbreak through the TDF and 3TC. Will need to follow. Would repeat HBV DNA and HCV RNA with next labs. Avoid hepatotoxins. Limit alcohol. RUQ US 04/2014 was normal. 5. Health maintenance. Lipid panel 11/2013 significant for low HDL. Hep A antibody neg so would reimmunize with HAV vaccine - need to get this for his next appointment. Tdap was given in 09/2011. Influenza vaccine 03/2014. Quantiferon neg. Will update pneumonia vaccine with Prevnar at future visit. Jaime l repeat syphilis serology but they have been [...] Visit Diagnoses Diagnosis AIDS (acquired immune deficiency syndrome) ([facility])- Primary Human immunodeficiency virus [HIV] disease Encounter for long-term (current) use of other medications Chronic hepatitis C without mention of hepatic coma Tobacco dependence syndrome Tobacco use disorder Chronic active type B viral hepatitis (HCC-CMS) Viral hepatitis B without mention of hepatic coma, chronic, without mention of hepatitis delta Leukocytosis Leukocytosis, unspecified documented in this encounter Discontinued Medications Medication Sig Discontinue Reason Start Date End Da te atazanavir (REYATAZ) 300 mg capsuleIndications:AIDS (acquired immune deficiency syndrome) ([facility]),Encounter for long-term (current) use of other medications Take 1 Cap by mouth daily. Reorder 03/30/2014 07/20/2014 lamiVUDine (EPIVIR) 300 mg tabletIndications:AIDS (acquired immune deficiency syndrome) ([facility]),Encounter for long-term (current) use of other medications Take 1 Tab by mouth daily. Reorder 03/30/2014 07/20/2014 Raltegravir (ISENTRESS) 400 mg tabletIndications:AIDS (acquired immune deficiency syndrome) ([facility]),Encounter for long-term (current) use of other medications Take 1 Tab by mouth 2 times daily. Reorder 03/30/2014 07/20/2014 ritonavir (NORVIR) 100 mg tabletIndications:AIDS (acquired immune deficiency syndrome) ([facility]),Encounter for long-term (current) use of other medications Take 1 Tab by mouth every 24 hours. Reorder 03/30/2014 07/20/2014 tenofovir (VIREAD) 300 mg tabletIndications:AIDS (acquired immune deficiency syndrome) ([facility]),Encounter for long-term (current) use of other medications Take 1 Tab by mouth daily. Reorder 03/30/2014 07/20/2014 documented as of this encounter Care Teams Topographical Drafter Relationship Specialty Start Date End Date Hanane Pollock NP [facility] [address] [place] [address] PCP - General 01/30/09 02/23/19 documented as of this encounter
--- OUTSIDE RECORDS SUMMARY | 2024-05-05 13:59 | XMS_ITS | Encounter Summary ---
Author Organization [facility] Address [address] [place] [address] Care Team Providers Care Machine Hose Cutter Name Role Phone Hanane Pollock NP Primary Care Provider [phone] Encounter Details Date Type Department Care Team (Late st Contact Info) Description 12/23/2014 Orders Only [facility] Infectious Disease - [address] [id number] Juli Franz MD Social History Tobacco Use Types Packs/Day Years Used Date Smoking Tobacco: Every Day Cigarettes Alcohol Use Standard Drinks/Week Comments No 0.8 [...] on filedocumented in this encounter Care Teams Machine Hose Cutter Relationship Specialty Start Date End Date Hanane Pollock NP [facility] [address] [place] [address] PCP - General 01/30/09 02/23/19 documented as of this encounter
--- OUTSIDE RECORDS SUMMARY | 2024-05-05 13:59 | XMS_ITS | Encounter Summary ---
Author Organization [facility] Address [address] [place] [address] Care Team Providers Care Insulating Machine Operator Name Role Phone Hanane Pollock NP Primary Care Provider [phone] Reason for Visit * Reason Comments Follow-up Encounter Details Date Type Department Care Team (Latest Contact Info) Description 02/21/2016 9:30 EDT Office Visit [facility] Infectious Disease [address] [address] Juli Franz MD AIDS (acquired immunodeficiency syndrome), CD4 <=200 ([facility]) (Primary Dx); Other secondary hypertension; New daily persistent headache; Chronic hepatitis B (CMS-HCC) (HCC-CMS); Tobacco abuse Social History Tobacco Use Types Packs/Day Years [...] as of this encounter Progress Notes * Juli Franz MD - 02/21/2016 0921 EDT [facility] FOLLOWUP NOTE DOS 02/21/2016 Last seen: 11/14/2014 SUBJECTIVE: Guan[place]ito presents for reevaluation of his HIV disease and his chronic hepatitis B and C. Having VICK x 1.5 weeks. Generalized head pain. 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 Ears popping today. No nasal congestion. No [...] none + MJ daily Lives with his senior care partner who is also HIV + They [...] make a change to decrease risk for senior care nephrotoxicity. He has chronic HBV so want to continue TDF and 3TC. Use of the ATV and RTV with the TDF increases the TDF levels and increases risk for nephrotoxicity.Therefore aft er his last visit we switched him from ATV/RTV/RAL/TDF/3TC to 3TC/TDF/RAL and rilpivirine in place of the boosted ATV. He started the new regimen late November. He seems to be tolerating it well. I do notthink that the new VICK is related to the meds as he has been on the new meds for 2 1/2 months and the VICK just started about 10 days ago. Labs done after he was on the new meds about a month demonstrated undetectable HIV PCR and stable chemistries. Since he was last seen there has been more info on the use of the new formulation of tenofovir in pts with chronic HBV. Therefore I think that we shouldplan to transition his TDF/3TC to TAF/FTC in [...] cancer. You would think that this would motivate him to quit. 3. VICK - this is a new issue. His BP was very high today which is new. I took it several times during the visit and the systilic was in the 150 - 160 range and the diastolic was 110 - 120. I have to be concerned that this is contributing to his VICK. He has no other localizing complaints. Doubt related to the rilpivirine. I cannot find anything that lists VICK as an AE of rilpivirine. 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 4. HTN - as above. New HTN. Not using ETOH. Still smoking but no excessive caffeine intake. Not using NSAIDS. He has a FH of HTN. I think that we need to follow his BP more closely. He is a pt at [facility]. Hanane Rossi arranged for him to go in for BP checks weekly. In addition will order arenal artery US to R/O renal artery stenosis. [...] endoscopy to eval for varices, but unclear ifthis is indicated in absence of cirrhosis. Could consider fibroscan. 4. Health maintenance. Last lipid panel 06/2015. He was also supposed to have repeat syphilis serology. Hep A antibody neg so needs reimmunize with HAV vaccine - we did not have any vaccine availabletoday. Tdap was given in 09/2011. Quantiferon neg. [...] present blood work. Most concerned with toxicity related to his HAART. Could have renal disease related to HBV. Unclear as to etiology of father's ESRD. Renal US neg but UA with hematuria. documented in this encounter Plan of Treatment Not on file documented as of this encounter Visit Diagnoses Diagnosis AIDS (acquired immunodeficiency syndrome), CD4 <=200 ([facility])- Primary Human immunodeficiency virus [HIV] disease Other secondary hypertension New daily persistent headache Chronic hepatitis B (HCC-CMS) Viral hepatitis B without mention of hepatic coma, chronic, without mention of hepatitis delta Tobacco abuse Tobacco use disorder documented in this encounter Historical Medications * This list may reflect changes made after this encounter. Medication Sig Dispensed Refills Start Date End Date acetaminophen (TYLENOL EXTRA STRENGTH) 500 mg tablet Take 1,000 mg by mouth every 12 hours as needed for Pain. added in this encounter Care Teams Insulating Machine Operator Relationship Specialty Start Date End Date Hanane Pollock NP [facility] [place] [address] [place] [address] PCP - General 01/30/09 02/23/19 documented as of this encounter
--- OUTSIDE RECORDS SUMMARY | 2024-05-05 13:59 | XMS_ITS | Encounter Summary ---
Author Organization [facility] Address [address] [place] [address] Care Team Providers Care Application Helper Name Role Phone None, Provider Primary Care Provider Sabrina Kiran OVERHEAD DISTRIBUTION ENGINEER Primary Care Provider [phone] Encounter Details Date Type Department Care Team (Late st Contact Info) Description 07/28/2020 Lab Requisition [facility] Pathology & Laboratory Medicine - [address] [address] Outr Resulting Lab, Provider Social History Tobacco [...] Diagnosis Comments HCV RNA DETECT QUANT Routine 07/27/2020 16:30 EST documented in this encounter Results * HCV RNA DETECT QUANT (07/27/2020 16:30 EST) HCV RNA Qualitative Undetected Undetected 07/31/2020 14:44 EST [facility] Blood VENOUS BLOOD / Unknown 07/27/2020 16:30 EST 07/28/2020 17:29 EST Narrative [facility] - 07/31/2020 14:44 EST The quantification range of this assay is 15 IU/mL to 100,000,000 IU/mL. ??Testing was performed on the PADILLA Ampliprep/PADILLA TaqMan HCV v2.0 ([employer] Provider Outr Resulting Lab CHEMISTRY & BLOOD GAS ORDERABLES [facility] [address] [place] [address] documented in this encounter Visit Diagnoses Not on filedocumented in this encounter Care Teams Application Helper Relationship Specialty Start Date End Date None, Provider PCP - General 03/02/20 03/28/21 Sabrina Jerome, SOM [address] [place] [id number] PCP - General 03/29/21 documented as of this encounter
--- OUTSIDE RECORDS SUMMARY | 2024-05-05 13:59 | XMS_ITS | Encounter Summary ---
Author Organization [facility] Address [address] [place] [address] Care Team Providers Care Dairy Husbandman Name Role Phone Hanane Pollock NP Primary Care Provider [phone] Reason for Visit * Reason Onset Date Comments Medications Refill 12/29/2015 Encounter Details Date Type Department Care Team (Late st Contact Info) Description 12/29/2015 Telephone [facility] Infectious Disease - [address] [address] Juli Franz MD Medications Refill Social History Tobacco Use Types Packs/Day Years Used Date Smoking Tobacco: Every Day Cigarettes Smokeless Tobacco: Never Alcohol Use Standard Drinks/Week Comments Yes 1 [...] Dispensed Refills Start Date End Da te rilpivirine 25 mg tabletIndications:Acquired immunodeficiency syndrome (HCC-CMS) Take 1 Tab by mouth daily. Take with food. 30 Tab 5 12/29/2015 11/06/2016 Raltegravir (ISENTRESS) 400 mg tabletIndications:AIDS (acquired immune deficiency syndrome) (HCC-CMS),AIDS (HCC-CMS) Take 1 Tab by mouth 2 times daily. 60 Tab 5 12/29/2015 11/06/2016 tenofovir (VIREAD) 300 mg tabletIndications:AIDS (acquired immune deficiency syndrome) (HCC-CMS),AIDS (HCC-CMS) Take 1 Tab by mouth daily. 30 Tab 5 12/29/2015 11/06/2016 lamiVUDine (EPIVIR) 300 mg tabletIndications:AIDS (acquired immune deficiency syndrome) (HCC-CMS),AIDS (HCC-CMS) Take 1 Tab by mouth daily. 30 Tab 5 12/29/2015 11/06/2016 documented in this encounter Miscellaneous Notes * Telephone Encounter - Ceci Fletcher RN - 12/29/2015 1140 EDT E-RX Isentress #60 with 5 refills, Viread #30 with 5 refills, Epivir #30 with 5 refills, and Edurant #30 with 5 refills to [facility] pharmacy in [facility]. * Telephone Encounter - Ceci Fletcher RN - 12/29/2015 0923 EDT L/M to call back to clarify medications that will be refilled today - 11/19 Telephone call note Discussed new regimen with: Isentress (Raltegravir)400 mg twice daily Viread 300 mg daily Epivir 300 mg daily And Edurant (rilpivirine) [address] of the ATVr (Reyataz) Stressed that he would need to take the rilpivirine with food * Telephone Encounter - Beena Wayne - 12/29/2015 0854 EDT [facility] patient. Hanane Pollock out today. Partner Fernando states that Guanakito needs the following medications refilled TODAY: Viread, Isentress, Norvir, Reyataz, and a new medication that he does not know the name of. They use [facility] in [facility]. Fernando would like a call back to let him know when it is called in: [phone]. documented in this encounter Plan of Treatment Not on file documented as of this encounter Visit Diagnoses Diagnosis AIDS (acquired immune deficiency syndrome) (HCC-CMS)- Primary Human immunodeficiency virus [HIV] disease AIDS (HCC-CMS) Human immunodeficiency virus [HIV] disease Acquired immunodeficiency syndrome (HCC-CMS) Human immunodeficiency virus [HIV] disease documented in this encounter Discontinued Medications Medication Sig Discontinue Reason Start Date End Da te lamiVUDine (EPIVIR) 300 mg tabletIndications:AIDS (acquired immune deficiency syndrome) (HCC-CMS),AIDS (HCC-CMS) Take 1 Tab by mouth daily Reorder 05/31/2015 12/29/2015 tenofovir (VIREAD) 300 mg tabletIndications:AIDS (acquired immune deficiency syndrome) (HCC-CMS),AIDS (HCC-CMS) Take 1 Tab by mouth daily Reorder 05/31/2015 12/29/2015 Raltegravir (ISENTRESS) 400 mg tabletIndications:AIDS (acquired immune deficiency syndrome) (HCC-CMS),AIDS (HCC-CMS) Take 1 Tab by mouth 2 times daily Reorder 05/31/2015 12/29/2015 rilpivirine 25 mg tabletIndications:Acquired immunodeficiency syndrome (HCC-CMS) Take 1 Tab by mouth daily. Reorder 11/15/2015 12/29/2015 documented as of this encounter Care Teams Dairy Husbandman Relationship Specialty Start Date End Date Hanane Pollock NP [facility] [address] [place] [address] PCP - General 01/30/09 02/23/19 documented as of this encounter
--- OUTSIDE RECORDS SUMMARY | 2024-05-05 13:59 | XMS_ITS | Encounter Summary ---
Author Organization [facility] Address [address] [place] [address] Care Team Providers Care Production Proofreader Name Role Phone Hanane Pollock NP Primary Care Provider [phone] Encounter Details Date Type Department Care Team (Late st Contact Info) Description 08/01/2014 Orders Only [facility] Infectious Disease - [facility] [address] [place] [address] Juli Franz MD Social History Tobacco Use [...] Diagnosis Comments HIV 1 RNA QUANTITATION Routine 07/18/2014 9:41 EST documented in this encounter Results * HIV 1 RNA QUANTITATION (07/18/2014 9:41 EST) HIV1 RNA, External Detected <20 copies/mL Undetected copies/mL [facility] Comment:Please see scan medi a in PRISM for furtehr information.Test Performed by: [facility] Blood specimen (specimen) 07/18/2014 9:41 EST Juli Franz MD CHEMISTRY & BLOOD GA S ORDERABLES [facility] documented in this encounter Visit Diagnoses Not on filedocumented in this encounter Care Teams Production Proofreader Relationship Specialty Start Date End Date Hanane Pollock NP [facility] [address] [place] [id number] PCP - General 01/30/09 02/23/19 documented as of this encounter
--- OUTSIDE RECORDS SUMMARY | 2024-05-05 13:59 | XMS_ITS | Encounter Summary ---
Author Organization [facility] Address [address] [place] [address] Care Team Providers Care Door Operator Name Role Phone None, Provider Primary Care Provider Unavailabl e Reason for Visit * Reason Comments HIV Positive/AIDS Encounter Details Date Type Department Care Team (Late st Contact Info) Description 07/31/2020 9:30 EST Telemedicine [facility] Infectious Disease - [address] [address] Lit Pina, DO [address] [facility] [place] [address] Asymptomatic HIV infection (HCC-CMS) (Primary [...] as of this encounter Progress Notes * [place] Lit De Los Santos, DO - 07/31/2020 0956 EST I spent a total of 30 [...] medical or mental health care. ?? HPI: ??Snide??is a 50 y.o.??male with history significant for HIV who presents with routine follow up. 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 Most recent CD4 done in??Jul??2019??was 836??and HIV VL in Feb??2019??was <??20. ??His current VL and CD4 are pending??. ??Pt on raltegravir 600mg two tabs daily and odefsey. Very good with adherence. 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 Both parties are on ART and have VL <??20. ?? Closed relationship. His partner is followed at [facility] as well. ?? Doing well in general,??he planned to quit tobacco in 2018 ??But still smoking, now up to 1PPD. [...] day (Patient not taking: Reported on 09/17/2017) bqcvzkhidn-fjzoceeu-apkbzl ala 200-25-25 mg tablet Take 1 Tab [...] A vaccine in distant past. ??Tdap 2011. ?[place]??Apr 2019, looked good so repeat in 10 years.?Pneumovax 2019, prevnar 2014. ?? 5) HTN per PCM, [...] status documented in this encounter Care Teams Door Operator Relationship Specialty Start Date End Date None, Provider PCP - General 03/02/20 03/28/21 documented as of this encounter
--- OUTSIDE RECORDS SUMMARY | 2024-05-05 13:59 | XMS_ITS | Encounter Summary ---
Author Organization [facility] Address [address] [place] [address] Care Team Providers Care Art Historian Name Role Phone Hanane Pollock NP Primary Care Provider [phone] Encounter Details Date Type Department Care Team (Late st Contact Info) Description 12/20/2014 Orders Only [facility] [place] Infectious Disease - [address] [address] Juli Franz MD Social History Tobacco Use [...] Procedure Name Priority Date/Time Associated Diagnosis Comments COMPLETE BLOOD COUNT AND DIFFERENTIAL Routine 12/14/2014 11:44 EDT PHOSPHORUS Routine 12/14/2014 11:44 EDT COMPREHENSIVE METABOLIC PANEL (CMP) Routine 12/14/2014 11:44 EDT documented in this encounter Results * (ABNORMAL) HEMAGRAM AND DIFFERENTIAL (12/14/2014 11:44 EDT) WBC, External 10.70 4.4 - 10.8 k/cumm [facility] RBC, External 5.07 4.50 - 6.00 m/cumm [facility] Hemoglobin, External 17.2 13.5 - 17.5 g/dL [facility] HCT, External 49.2 40.0 - 50.0 % [facility] MCV, External 97.0(A) 80 - 95 fL [facility] MCH, External 33.9(A) 27.0 - 33.0 pg [facility] MCHC, External 35.0 32.0 - 36.0 % [facility] PLT, External 212 130 - 400 x1000/uL [facility] RDW-CV, External 13.6 11.8 - 14.1 % [facility] Neutrophils, External 62.3 % [facility] Lymphocytes, External 26.5 % [facility] Monocytes, External 8.6 % [facility] Eosinophils, External 2.0 % [facility] Basophils, External 0.4 % [facility] ABS Neutrophils, External 6.67 1.2 - 6.7 k/cumm [facility] ABS Lymphs, External 2.84 1.2 - 3.4 k/cumm [facility] ABS Monocytes, External 0.92(A) 0.11 - 0.7 k/cumm [facility] ABS Eosinophils, External 0.21 0.0 - 0.7 k/cumm [facility] ABS Basophils, External 0.04 0.0 - 0.2 k/cumm [facility] Comment:See scans in prism. Blood specimen (specimen) 12/14/2014 11:44 EDT Juli Franz MD PACKAGES & DNA PROBE ORDERABLES [facility] * PHOSPHORUS (12/14/2014 11:44 EDT) Phosphorus, External 3.4 2.5 - 4.9 mg/dL [facility] Blood specimen (specimen) 12/14/2014 11:44 EDT Juli Franz MD CHEMISTRY & BLOOD GA S ORDERABLES [facility] * (ABNORMAL) COMPREHENSIVE METABOLIC PANEL (CMP) (12/14/2014 11:44 EDT) GFR, Calculated, External >=60.00 >=60.00 mL/min/1. 73m2 [facility] Glucose, Serum, External 87 70 - 100 mg/dL [facility] Albumin, External 4.4 3.4 - 5.0 g/dL [facility] Total Alkaline Phosphatase, External 87 46 - 116 U/L [facility] ALT, External 49 12 - 78 U/L [facility] AST, External 20 15 - 37 U/L [facility] BUN, External 21(A) 7 - 18 mg/dL [facility] Calculated Calcium, External Not given [facility] Calcium, External 9.2 8.5 - 10.1 mg/dL [facility] Chloride, External 102 98 - 107 mmol/L [facility] CO2, External 26.3 21.0 - 32.0 mmol/L [facility] Creatinine, External 1.0 0.8 - 1.3 mg/dL [facility] Fasting?, External Unknown [facility] Potassium, External 3.9 3.5 - 5.1 mmol/L [facility] Sodium, External 140 136 - 145 mmol/L [facility] Total Protein, External 7.5 6.4 - 8.2 g/dL [facility] Bilirubin, Total, External 2.25(A) 0.2 - 1.0 mg/dL [facility] Comment:See scans in prism. Blood specimen (specimen) 12/14/2014 11:44 EDT Juli Franz MD CHEMISTRY & BLOOD GA S ORDERABLES [facility] documented in this encounter Visit Diagnoses Not on filedocumented in this encounter Care Teams Art Historian Relationship Specialty Start Date End Date Hanane Pollock NP [facility] [address] [place] [address] PCP - General 01/30/09 02/23/19 documented as of this encounter
--- OUTSIDE RECORDS SUMMARY | 2024-05-05 13:59 | XMS_ITS | Encounter Summary ---
Author Organization [facility] Address [address] [place] [address] Care Team Providers Care Business Change Manager Name Role Phone Hanane Pollock NP Primary Care Provider [phone] Encounter Details Date Type Department Care Team (Late st Contact Info) Description 11/06/2016 Orders Only [facility] Infectious Disease - [address] [address] Juli Franz MD AIDS (acquired immune deficiency syndrome) ([facility]); AIDS ([facility]) Social History Tobacco Use Types Packs/Day Years [...] Dispensed Refills Start Date End Da te Raltegravir (ISENTRESS) 400 mg tabletIndications:AIDS (acquired immune deficiency syndrome) ([facility]),AIDS ([facility]) Take 1 Tab by mouth 2 times daily. 60 Tab 5 11/06/2016 03/12/2017 znsiisvhjj-wrzzmysb-ozirrd ala 200-25-25 mg tablet Take 1 Tab by mouth daily. 30 Tab 1 11/06/2016 01/06/2017 documented in this encounter Plan of Treatment Not on file documented as of this encounter Visit Diagnoses Diagnosis AIDS (acquired immune deficiency syndrome) (HCC-CMS) Human immunodeficiency virus [HIV] disease AIDS (HCC-CMS) Human immunodeficiency virus [HIV] disease documented in this encounter Discontinued Medications Medication Sig Discontinue Reason Start Date End Da te rilpivirine 25 mg tabletIndications:Acquired immunodeficiency syndrome (HCC-CMS) Take 1 Tab by mouth daily. Take with food. 12/29/2015 11/06/2016 tenofovir (VIREAD) 300 mg tabletIndications:AIDS (acquired immune deficiency syndrome) (HCC-CMS),AIDS (HCC-CMS) Take 1 Tab by mouth daily. 12/29/2015 11/06/2016 lamiVUDine (EPIVIR) 300 mg tabletIndications:AIDS (acquired immune deficiency syndrome) (HCC-CMS),AIDS (HCC-CMS) Take 1 Tab by mouth daily. 12/29/2015 11/06/2016 Raltegravir (ISENTRESS) 400 mg tabletIndications:AIDS (acquired immune deficiency syndrome) (HCC-CMS),AIDS (HCC-CMS) Take 1 Tab by mouth 2 times daily. Reorder 12/29/2015 11/06/2016 documented as of this encounter Care Teams Business Change Manager Relationship Specialty Start Date End Date Hanane Pollock NP [facility] [address] [place] [address] PCP - General 01/30/09 02/23/19 documented as of this encounter
--- OUTSIDE RECORDS SUMMARY | 2024-05-05 13:59 | XMS_ITS | Encounter Summary ---
Author Organization [facility] Address [address] [place] [address] Care Team Providers Care Winch Stripper Name Role Phone Unknown, Provider Primary Care Provider Reason for Visit * Reason Comments Follow-up Encounter Details Date Type Department Care Team (Late st Contact Info) Description 03/01/2019 9:00 EDT Office Visit [facility] Infectious Disease [address] [address] Lit Pina, DO [address] [facility] [address] [place] [id number] Asymptomatic HIV infection ([facility]) (Primary Dx) Social History Tobacco Use Types [...] tablet Take 2 Tabs by mouth daily. 60 Tab 11 03/01/2019 04/23/2022 emtricitabine-rilpivirine- tenofovir alafenam (ODEFSEY) tablet Take 1 Tab by mouth daily. 30 Tab 11 03/01/2019 06/28/2022 documented in this encounter Progress Notes * Lit Pina DO - 03/01/2019 0900 EDT Images from the original note were not included. Office Visit 08/31/2018 [facility] Infectious Disease - [facility] Lit Pina DO HIV (human immunodeficiency virus infection) ([facility]) Dx Follow-up Reason for Visit Progress Notes [...] raltegravir 600mg two tabs daily and odefsey. Verygood with adherence. Exercises with yard work. 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 Both parties are on ART and have VL < 20. Doing well in general, he plans to quit tobacco this fall with . Review of Systems: 10-point review of systems is negative except as noted in the HPI. Past Medical History: Past Medical History: Diagnosis Date ??? HIV positive ([facility]) ([facility]) ??? Screening colonoscopy 2008 Cryptococcal [...] day (Patient not taking: Reported on 09/17/2017) gltgxkdjqj-rkguuzlg-kdrxcb ala 200-25-25 mg tablet Take 1 Tab by mouth daily. lisinopril (PRINIVIL, ZESTRIL) 10 mg tablet Take 1 Tab by mouth daily. raltegravir 600 mg tablet Take 1,200 mg by mouth daily. Allergies Allergen Reactions ??? Penicillins Rash ??? Sulfa (Sulfonamide Antibiotics) Hives Social History Tobacco: down to 1PPD Alcohol:Rare, heavy in past Recreational drugs:THC, daily Herbal:none Professional:Not working now but does some Intelligence [employer] Relationships / Living Situation: Sounds stable Sexual: [...] comfortable with this regimen. HIV VL < 20,still waiting for CD4 count. Creat a little [...] A vaccine in distant past. Tdap 2011. [place] slipped through the cracks this spring, pt will contact [facility] to schedule. Pneumovax 2018, prevnar 2015. 5) HTN per PCM documented in this encounter Plan of Treatment Not on file documented as of this encounter Visit Diagnoses Diagnosis Asymptomatic HIV infection (HCC-CMS)- Primary Asymptomatic human immunodeficiency virus (HIV) infection status documented in this encounter Care Teams Winch Stripper Relationship Specialty Start Date End Date Unknown, Provider, PCP - General 02/24/19 03/01/20 documented as of this encounter
--- OUTSIDE RECORDS SUMMARY | 2024-05-05 13:59 | XMS_ITS | Encounter Summary ---
Author Organization [facility] Address [address] [place] [address] Care Team Providers Care Night Time Babysitter Name Role Phone Hanane Pollock NP Primary Care Provider Reason for Visit * Reason Comments Follow-up Encounter Details Date Type Department Care Team (Latest Contact Info) Description 11/15/2015 9:30 EDT Office Visit [facility] Infectious Disease - [address] [address] Juli Franz MD Acquired immunodeficiency syndrome ([facility]) (Primary Dx); Encounter for long-term current use of high risk medication; Chronic hepatitis B (CMS-HCC) ([facility]) Social History Tobacco Use Types Packs/Day Years [...] kg (182 lb 15.7 oz) 11/15/2015 0859 ED T Height - - Body Mass Index 27.02 [...] Tab by mouth daily. 30 Tab 1 11/15/2015 12/29/2015 documented in this encounter Progress Notes * Juli Franz MD - 11/15/2015 0859 EDT [facility] FOLLOWUP NOTE DOS 11/15/2015 Last seen: [...] usually + MJ daily Lives with his long term care pharmacist partner who is also HIV + They [...] nails which are stable. Pulses 2 + bilat in his feet No acute rash. Neuro - motor 5/5. Trace right patellar reflex with enhancement manuvers but unable to elicit a patella reflex on the left even with enhancement manuvers. No achilles reflex. Vibratory sensation in his feet intact DIAGNOSTIC DATA: Last labs: 11/08/2015 CBC: [...] effect of the TDF. He has chronic HBVso want to continue TDF and 3TC. Use of the ATV and RTV with the TDF increases the TDF levels and increases risk for nephrotoxicity. I think that we need to try to get him off the boosted PI. Reviewed all of his past ART history. He never failed a PI. He developed increased HIV PCR while on ABC/TDF/3TC/EFV and was changed to present regimen. His HIV PCR was too low to perform resistance testing. No immediate need to change his regimen as Cr [...] 4 weeks and FU with me in [facility]. 2. Tobacco use - He is not [...] 06/2015. Encouraged him to limit his ETOH. Heis on no other hepatotoxic meds. Will need to follow his LFTS, especially on the new HAART. As he did noit have cirrhosis unclear that he needs screening US. He has hemorroids but never had endoscopyto eval for varices, but unclear if this [...] intact. documented in this encounter Miscellaneous Notes * Assessment & Plan Note - Juli Franz MD - 11/15/20152046 EDTAssociated Problem(s): Acquired immunodeficiency syndrome ([facility]) HIV/AIDS - h/o cryptococcal meningitis ART History: [...] encounter Visit Diagnoses Diagnosis Acquired immunodeficiency syndrome ([facility])- Primary Human immunodeficiency virus [HIV] disease Encounter for long-term current use of high risk medication Chronic hepatitis B ([facility]) Viral hepatitis B without mention of hepatic coma, chronic, without mention of hepatitis delta documented in this encounter Care Teams Night Time Babysitter Relationship Specialty Start Date End Date Hanane Pollock NP [facility] [address] [place] [address] PCP - General 01/30/09 02/23/19 documented as of this encounter
--- OUTSIDE RECORDS SUMMARY | 2024-05-05 13:59 | XMS_ITS | Encounter Summary ---
Author Organization [facility] Address [address] [place] [address] Care Team Providers Care Materials Handler Name Role Phone Hanane Pollock NP Primary Care Provider [phone] Encounter Details Date Type Department Care Team (Late st Contact Info) Description 04/04/2017 Results Only Imaging [facility] Infectious Disease - Main [place] [address] [place] [id number] Juli Franz MD Social History Tobacco Use [...] Procedure Name Priority Date/Time Associated Diagnosis Comments VL RENAL ARTERY DUPLEX 04/04/2017 9:27 EDT documented in this encounter Results * VL RENAL ARTERY DUPLEX (04/04/2017 9:27 EDT) Anatomical Region Laterality Modality Other 04/04/2017 9:27 EDT Narrative 04/07/2017 9:41 EDT Vascular Diagnostic Laboratory [facility], [facility], [address] [place] [address] Technologist: Erik Trivedi Fellow: IMPRESSIONS 1. Normal bilateral renal artery evaluation. 2. Resistive index on the right is normal: 0.64. 3. Resistive index on the left is normal: 0.64. PROCEDURE: Renal artery duplex evaluation. ? Duplex scan and Doppler flow study including spectral analysis, color and egan scale imaging. INDICATION: Hypertension. HISTORY: RISK FACTORS: Current tobacco use. Hypertension. DOPPLER FINDINGS: + +-------+------+---------+ Location ? V sys ?? V ed ?? Resistive + +-------+------+---------+ Abdominal aorta ? 108cm/s ? + +-------+------+---------+ Right renal - prox ?? 81cm/s 29cm/s ? + +-------+------+---------+ Right renal - mid ?? 50cm/s 20cm/s ? + +-------+------+---------+ Right renal - dist ?? 48cm/s 17cm/s ? + +-------+------+---------+ R upper pole cortex 34cm/s 12cm/s 0.64 ? + +-------+------+---------+ R upper pole medulla 55cm/s 20cm/s 0.64 ? + +-------+------+---------+ R lower pole medulla 60cm/s 22cm/s 0.63 ? + +-------+------+---------+ R lower pole cortex 26cm/s 10cm/s 0.63 ? + +-------+------+---------+ L upper pole cortex 31cm/s 13cm/s 0.59 ? + +-------+------+---------+ L upper pole medulla 39cm/s 15cm/s 0.62 ? + +-------+------+---------+ L lower pole medulla 34cm/s 10cm/s 0.71 ? + +-------+------+---------+ L lower pole cortex 23cm/s 8cm/s 0.65 ? + +-------+------+---------+ * RENAL ANATOMY: +---------+------+------+ ? Right Left ?? +---------+------+------+ Long axis 11.3cm 11.4cm +---------+------+------+ * Electronically signed by: Juan Pablo Michaud 04/07/2017 09:41 Procedure Note Juan Pablo Michaud MD - 04/07/2017 Vascular Diagnostic Laboratory [facility], [facility] [address] [place] [id number] Technologist: Erik Trivedi Fellow: IMPRESSIONS 1. Normal bilateral renal artery evaluation. 2. Resistive index on the right is normal: 0.64. 3. Resistive index on the left is normal: 0.64. PROCEDURE: Renal artery duplex evaluation. Duplex scan and Doppler flow study including spectral analysis, color and egan scale imaging. INDICATION: Hypertension. HISTORY: RISK FACTORS: Current tobacco use. Hypertension. DOPPLER FINDINGS: + +-------+------+---------+ Location V sys V ed Resistive + +-------+------+---------+ Abdominal aorta 108cm/s + +-------+------+---------+ Right renal - prox 81cm/s 29cm/s + +-------+------+---------+ Right renal - mid 50cm/s 20cm/s + +-------+------+---------+ Right renal - dist 48cm/s 17cm/s + +-------+------+---------+ R upper pole cortex 34cm/s 12cm/s 0.64 + +-------+------+---------+ R upper pole medulla 55cm/s 20cm/s 0.64 + +-------+------+---------+ R lower pole medulla 60cm/s 22cm/s 0.63 + +-------+------+---------+ R lower pole cortex 26cm/s 10cm/s 0.63 + +-------+------+---------+ L upper pole cortex 31cm/s 13cm/s 0.59 + +-------+------+---------+ L upper pole medulla 39cm/s 15cm/s 0.62 + +-------+------+---------+ L lower pole medulla 34cm/s 10cm/s 0.71 + +-------+------+---------+ L lower pole cortex 23cm/s 8cm/s 0.65 + +-------+------+---------+ * RENAL ANATOMY: +---------+------+------+ Right Left +---------+------+------+ Long axis 11.3cm 11.4cm +---------+------+------+ * Electronically signed by: Juan Pablo Michaud 04/07/2017 09:41 Juli Franz MD [facility] documented in this encounter Visit Diagnoses Not on filedocumented in this encounter Care Teams Materials Handler Relationship Specialty Start Date End Date Hanane Pollock NP [facility] [address] [place] [address] PCP - General 01/30/09 02/23/19 documented as of this encounter
--- OUTSIDE RECORDS SUMMARY | 2024-05-05 13:59 | XMS_ITS | Encounter Summary ---
Author Organization [facility] Address [address] [place] [address] Care Team Providers Care Weatherization Installer Name Role Phone Hanane Pollock NP Primary Care Provider [phone] Encounter Details Date Type Department Care Team (Latest Contact Info) Description 05/22/2017 19:00 EST - 05/22/2017 23:59 [facility] Hospital Encounter [address] [address] Unknown, Provider, Discharge Disposition: Home or Self Care Social History Tobacco Use Types Packs/Day Years [...] No 07/20/2015 documented as of this encounter Medications at Time of Discharge Medication Sig Dispensed Refills Start Date End Date acetaminophen (TYLENOL EXTRA STRENGTH) 500 mg tablet Take 1,000 mg by mouth every 12 hours as needed for Pain. doxazosin (CARDURA) 4 mg tablet Take 1 tablet by mouth every day 30 Tab 1 02/14/2017 hguvkduwdk-qpzxymlt-gcepf o ala 200-25-25 mg tablet Take 1 Tab by mouth daily. 30 Tab 6 03/12/2017 09/17/2017 lisinopril (PRINIVIL, ZESTRIL) 10 mg tablet Take 1 Tab by mouth daily. 7 Tab 03/12/2017 08/22/2023 Raltegravir (ISENTRESS) 400 mg tabletIndications:AIDS (acquired immune deficiency syndrome) (HCC-CMS),AIDS (HCC-CMS) Take 1 Tab by mouth 2 times daily. 60 Tab 6 03/12/2017 09/17/2017 documented as of this encounter Discharge Disposition Disposition Code Departure Means Destination Home or Self Fpc documented in this encounter Plan of Treatment Not on file documented as of this encounter Visit Diagnoses Not on filedocumented in this encounter Care Teams Weatherization Installer Relationship Specialty Start Date End Date Hanane Pollock NP [facility] [address] [place] [address] PCP - General 01/30/09 02/23/19 documented as of this encounter
--- OUTSIDE RECORDS SUMMARY | 2024-05-05 13:59 | XMS_ITS | Encounter Summary ---
Author Organization [facility] Address [address] [place] [address] Care Team Providers Care Cable Mechanic Name Role Phone Hanane Pollock NP Primary Care Provider [phone] Reason for Visit * Reason Onset Date Comments Appointment Related 04/27/2018 Encounter Details Date Type Department Care Team (Late st Contact Info) Description 04/27/2018 Telephone [facility] General Surgery - [address] [address] Bharat Dowd MD [address] [place] [address], [address] [place] [address] Appointment Related Social History Tobacco Use Types Packs/Day Years [...] encounter Miscellaneous Notes * Telephone Encounter - Nakia Sosa 04/27/2018 9524 EDT Calling for his partner to make colo appointment as directed by the letter sent out. 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 documented in this encounter Plan of Treatment Not on file documented as of this encounter Visit Diagnoses Not on filedocumented in this encounter Care Teams Cable Mechanic Relationship Specialty Start Date End Date Hanane Pollock NP [facility] [address] [place] [address] PCP - General 01/30/09 02/23/19 documented as of this encounter
--- OUTSIDE RECORDS SUMMARY | 2024-05-05 13:59 | XMS_ITS | Encounter Summary ---
Author Organization [facility] Address [address] [place] [address] Care Team Providers Care Counter Helper Name Role Phone Hanane Pollock NP Primary Care Provider [phone] Reason for Visit * Reason Comments Follow-up Encounter Details Date Type Department Care Team (Late st Contact Info) Description 03/12/2017 9:45 EDT Office Visit [facility] Infectious Disease [address] [address] Juli Franz MD Essential hypertension (Primary Dx); AIDS (acquired immune deficiency syndrome) (CMS-HCC); AIDS (CMS-HCC); Chronic active hepatitis B without delta agent (CMS-HCC) (HCC-CMS); Tobacco abuse Social History Tobacco [...] Dispensed Refills Start Date End Da te wnoziyvyop-njczedmu-gkaivc ala 200-25-25 mg tablet Take 1 Tab by mouth daily. 30 Tab 6 03/12/2017 09/17/2017 Raltegravir (ISENTRESS) 400 mg tabletIndications:AIDS (acquired immune deficiency syndrome) (HCC-CMS),AIDS (HCC-CMS) Take 1 Tab by mouth 2 times daily. 60 Tab 6 03/12/2017 09/17/2017 lisinopril (PRINIVIL, ZESTRIL) 10 mg tablet Take 1 Tab by mouth daily. 7 Tab 03/12/2017 08/22/2023 documented in this encounter Progress Notes * Juli Franz MD - 03/12/2017 0945 EDT [facility] FOLLOWUP NOTE DOS 03/12/2017 Last seen: 11/06/2016 SUBJECTIVE: Guanakito presents for reevaluation of his HIV disease and his chronic hepatitis B and C. Going to [place] for his BP. They have been titrating his medication but his blood pressure is still not controlled. He never did have the renal [...] issue with her platelets that was causing the bleeding Smoking 1 pack every day ETOH - none + MJ daily Lives with his mcc partner who is also HIV + They [...] upbeat today than it was at the timeof his last visit. 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 He has chronic HBV so wanted to continue TDF and 3TC. Use of the ATV and RTV with the TDF increases the TDF levels and increases risk for nephrotoxicity.Therefore we changed his heart from ATV/RTV/RAL/TDF/3TC to 3TC/TDF/RAL and rilpivirine in place of the boostedATV. He started the new regimen late November 2015. At the time of his last visit we made a plan to change his TDF/3TC to TAF/FTC. With that change we were able to simplify the regimen by giving him Odefsey (rilpivirine/TAF/FTC) once a day in combination with his raltegravir twice daily. He had had a lipid panel prior to his last visit and will need to repeat his lipid panel with his next blood work as the TAF may cause an increase in his LDL. I do not think he is a candidate for dolutegravir because of the potential for increase in his liver enzymes with his underlying hepatitis B and C. He is tolerating his present medications well and has good adherence. Therefore we will plan to continue theOdefsey and raltegravir. He will need to have repeat blood work and a follow-up with me in the [facility] in 4-6 months. We will plan to [...] - He has been seen at the [facility] for his hypertension since he was last seen by me. They have titrated up the Cardura but his blood pressure today remains markedly elevated. He is asymptomatic with the elevated blood pressure. He is not having any headaches. No chest pain or shortness of breath. Unclear if he had palpitations secondary to lisinopril or the Chantix. He is willing to be rechallenged with lisinopril. I sent in a prescription for lisinopril 10 mg #7 to take 1 a day. He anticipates he will have the medication by Friday. I think he will know fairly quickly if lisinopril is causing the palpitations. If he develops palpitations with the lisinopril we will disco ntinue it. If he tolerates the lisinopril he will continue on the lisinopril 1 daily with his Cardura 8 mg daily. He is going to see Hanane in follow-up next to have his blood pressure checked. In view of the fact that he has new onset of hypertension which has been difficult to control I do think he needs to have a renal artery study. He is willing to go to [place] or to [facility] to have this done, and Hanane will set him up for that appointment. If he tolerates the lisinopril we will need to watch his potassium closely as unclear if he has underlying renal artery stenosis. He is not overweight. He does not use excessive amounts of caffeine. He is using minimal to no alcohol. Heis not using NSAIDs. He continues to smoke [...] will h be due for repeat. He has seen the dentist. 6 Lung nodule - he underwent biopsy of concerning lung nodule 05/2011 - path revealed AFB but culture was negative. He remains asymptomatic. Last CXR was stable. He continues to smoke so may be a candidate for screening CT for lung cancer. Hanane will look into scheduling this through the [facility]. 7. Depression -he has had issues with depression in the past. At the time of his last visit his affect was depressed but there were multiple different stressors playing a role at that time. He seems much more upbeat today. He is definitely under less stress. We will continue off antidepressants. Heis not been receptive to seeing a counselor in the past. documented in this encounter Plan of Treatment Not on file documented as of this encounter Visit Diagnoses Diagnosis Essential hypertension- Primary Unspecified essential hypertension AIDS (acquired immune deficiency syndrome) (HCC-CMS) Human immunodeficiency virus [HIV] disease AIDS (HCC-CMS) Human immunodeficiency virus [HIV] disease Chronic active hepatitis B without delta agent (HCC-CMS) Tobacco abuse Tobacco use disorder documented in this encounter Discontinued Medications Medication Sig Discontinue Reason Start Date End Da te Raltegravir (ISENTRESS) 400 mg tabletIndications:AIDS (acquired immune deficiency syndrome) (HCC-CMS),AIDS (HCC-CMS) Take 1 Tab by mouth 2 times daily. Reorder 11/06/2016 03/12/2017 nmjdmfebri-eziurfxg-amxum o ala 200-25-25 mg tablet Take 1 Tab by mouth daily. Reorder 02/14/2017 03/12/2017 documented as of this encounter Care Teams Counter Helper Relationship Specialty Start Date End Date Hanane Pollock NP [facility] [address] [place] [address] PCP - General 01/30/09 02/23/19 documented as of this encounter
--- OUTSIDE RECORDS SUMMARY | 2024-05-05 13:59 | XMS_ITS | Encounter Summary ---
Author Organization [facility] Address [address] [place] [address] Care Team Providers Care Twisthand Name Role Phone Hanane Pollock NP Primary Care Provider [phone] Reason for Visit * Reason Comments Follow-up Encounter Details Date Type Department Care Team ([facility] st Contact Info) Description 11/17/2013 9:45 EDT Office Visit [facility] Infectious Disease [address] [address] Juli Franz MD AIDS (acquired immune deficiency syndrome) (CMS-HCC) (Primary Dx); Encounter for long-term (current) use of other medications; Viral hepatitis B without mention of hepatic coma, chronic, without mention of hepatitis delta; Pulmonary nodule; Chronic hepatitis C without mention of hepatic coma Social History Tobacco Use Types Packs/Day Years [...] 300 mg tabletIndications:AIDS (acquired immune deficiency syndrome) ([facility]),Encounter for long-term (current) use of other medications Take 1 Tab by mouth daily. 30 Tab 3 11/17/2013 03/30/2014 ritonavir (NORVIR) 100 mg tabletIndications:AIDS (acquired immune deficiency syndrome) ([facility]),Encounter for long-term (current) use of other medications Take 1 Tab by mouth every 24 hours. 30 Tab 3 11/17/2013 03/30/2014 Raltegravir (ISENTRESS) 400 mg tabletIndications:AIDS (acquired immune deficiency syndrome) ([facility]),Encounter for long-term (current) use of other medications Take 1 Tab by mouth 2 times daily. 60 Tab 3 11/17/2013 03/30/2014 lamiVUDine (EPIVIR) 300 mg tabletIndications:AIDS (acquired immune deficiency syndrome) ([facility]),Encounter for long-term (current) use of other medications Take 1 Tab by mouth daily. 30 Tab 3 11/17/2013 03/30/2014 atazanavir (REYATAZ) 300 mg capsuleIndications:AIDS (acquired immune deficiency syndrome) ([facility]),Encounter for long-term (current) use of other medications Take 1 Cap by mouth daily. 30 Cap 3 11/17/2013 03/30/2014 documented in this encounter Progress Notes * Lavonne Ng - 11/18/2013 0907 EDT Mailed to Hanane Pollock * Juli Franz MD - 11/17/2013 0940 EDT [facility] FOLLOWUP NOTE DOS 11/17/2013 Last seen: 07/28/2013 [...] day. Then needs a nap later in theday. His appetite has been good. No acute [...] meds well. His viral load has been detectable but remains low. His CD4 count is [...] quit smoking Hep A antibody neg so would reimmunize [...] If any change may need repeat CT ofthe chest. documented in this encounter Plan of Treatment Not on file documented as of this encounter Visit Diagnoses Diagnosis AIDS (acquired immune deficiency syndrome) (HCC-CMS)- Primary Human immunodeficiency virus [HIV] disease Encounter for long-term (current) use of other medications Viral hepatitis B without mention of hepatic coma, chronic, without mention of hepatitis delta Pulmonary nodule Solitary pulmonary nodule Chronic hepatitis C without mention of hepatic coma documented in this encounter Discontinued Medications Medication Sig Discontinue Reason Start Date End Da te atazanavir (REYATAZ) 300 mg capsuleIndications:AIDS (acquired immune deficiency syndrome) (HCC-CMS) Take 1 Cap by mouth daily. Reorder 07/21/2013 11/17/2013 lamiVUDine (EPIVIR) 300 mg tabletIndications:AIDS (acquired immune deficiency syndrome) (HCC-CMS) Take 1 Tab by mouth daily. Reorder 07/21/2013 11/17/2013 Raltegravir (ISENTRESS) 400 mg tabletIndications:AIDS (acquired immune deficiency syndrome) ([facility]) Take 1 Tab by mouth 2 times daily. Reorder 07/21/2013 11/17/2013 ritonavir (NORVIR) 100 mg tabletIndications:AIDS (acquired immune deficiency syndrome) ([facility]) Take 1 Tab by mouth every 24 hours. Reorder 07/21/2013 11/17/2013 tenofovir (VIREAD) 300 mg tabletIndications:AIDS (acquired immune deficiency syndrome) ([facility]) Take 1 Tab by mouth daily. Reorder 07/21/2013 11/17/2013 documented as of this encounter Care Teams Twisthand Relationship Specialty Start Date End Date Hanane Pollock NP [facility] [address] [place] [address] PCP - General 01/30/09 02/23/19 documented as of this encounter
--- OUTSIDE RECORDS SUMMARY | 2024-05-05 13:59 | XMS_ITS | Encounter Summary ---
Author Organization [facility] Address [address] [place] [address] Care Team Providers Care Pulverizer Tender Name Role Phone Hanane Pollock NP Primary Care Provider [phone] Encounter Details Date Type Department Care Team (Late st Contact Info) Description 04/20/2016 Orders Only [facility] Infectious Disease - Main [place] [address] [place], [place] [id number] Juli Franz MD Social History Tobacco Use Types Packs/Day Years Used Date Smoking Tobacco: Every Day Cigarettes Smokeless Tobacco: Never Alcohol Use Standard Drinks/Week Comments No 1 [...] on filedocumented in this encounter Care Teams Pulverizer Tender Relationship Specialty Start Date End Date Hanane Pollock, S[facility] [address] [place], [place] [address] PCP - General 01/30/09 02/23/19 documented as of this encounter
--- OUTSIDE RECORDS SUMMARY | 2024-05-05 13:59 | XMS_ITS | Encounter Summary ---
Author Organization [facility] Address [address] [place] [address] Care Team Providers Care Boiler Maker Name Role Phone Unknown, Provider Primary Care Provider Reason for Visit * Reason Comments HIV Positive/AIDS Encounter Details Date Type Department Care Team (Late st Contact Info) Description 08/16/2019 9:00 EST Office Visit [facility] Infectious Disease [address] [address] Lit Pina, DO [address] [facility], [facility] [address] [place] [phone] Acquired immunodeficiency syndrome ([facility]) (Primary Dx) Social History Tobacco Use [...] Progress Notes * Lit Pina, DO - 08/16/2019 0900 EST Patient name: Guanakito [...] adherence. Exercises with yard work. 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 Partner HIVinfected, not using condoms. Both parties are on ART and have VL < 20. ?? Doing well in general, he planned to quit tobacco in 2019 But still smoking. He did cut it [...] day (Patient not taking: Reported on 09/17/2017) zcrldfisym-yolueibv-uevajj ala 200-25-25 mg tablet Take 1 Tab [...] supply. We did give shingrix #2 today. Flu fall 2018. Hep A vaccine in distant past. Tdap 2011. [place] Apr 2019, looked good so repeat in 10 years. Pneumovax 2018, prevnar 2014. ?? 5) HTN per PCM ?? 6) Had benign lesion removed from oral cavity in 2019, benign. Pt encouraged to stop smoking documented in this encounter Plan of Treatment Not on file documented as of this encounter Visit Diagnoses Diagnosis Acquired immunodeficiency syndrome (HCC-CMS)- Primary Human immunodeficiency virus [HIV] disease documented in this encounter Care Teams Boiler Maker Relationship Specialty Start Date End Date Unknown, Provider, PCP - General 02/24/19 03/01/20 documented as of this encounter
--- OUTSIDE RECORDS SUMMARY | 2024-05-05 13:59 | XMS_ITS | Encounter Summary ---
Author Organization [facility] Address [address] [place] [address] Care Team Providers Care Braille Coder Name Role Phone Hanane Pollock NP Primary Care Provider [phone] Reason for Visit * Reason Comments Follow-up Encounter Details Date Type Department Care Team (Latest Contact Info) Description 12/14/2014 9:45 EDT Office Visit [facility] Infectious Disease [address] [address] Juli Franz MD Human immunodeficiency virus (HIV) disease ([facility]) (Primary Dx); Encounter for long-term (current) use of other medications Social History Tobacco Use Types Packs/Day Years [...] 1mg tablet twice daily 53 Tab 0 12/15/2014 06/30/2015 documented in this encounter Progress Notes * Beena Wayne - 12/15/2014 0827 EDT Mailed note,med list, labs to Hanane Pollock. * Juli Franz MD - 12/14/2014 0950 EDT [facility] FOLLOWUP NOTE DOS 07/20/2014 Last seen: 03/30/2014 [...] sleeps until about 5 am. Sometimes he does not go back to sleep at all. He [...] his last labs was detectable but < 20 copies. He has tolerated the meds well. I had been concerned that his Cr had gone up a bit but itappeared to be holding. His phosphorus has been holding steady. As his present medications are not only treating his HIV but are also treating his chronic hepatitis B I think that we will need to tryto continue him on his tenofovir. We will need to watch his creatinine closely. He is due for bloodwork and he will go to the lab [...] hislast labs. HBV DNA and HCV RNA undetectableon blood work in 03/2014. He clearly could flare his HCV and his HBV could break through the TDF and3TC. Will need to follow. HBV DNA and HCV RNA to be done with labs today. Avoid hepatotoxins. Limitalcohol. RUQ US 04/2014 was normal. Will plan for repeat abd US. 4. Health maintenance. Lipid panel 11/2013 so due for repeat lipid panel with labs today. Hep A antibody neg so would reimmunize with HAV vaccine . Tdap was given in 09/2011. Quantiferon neg. Will update pneumonia vaccine with Prevnar at future visit. Will repeat syphilis serology with labs today mare have been in a monogamous relationship for many years. 5 Lung nodule - he underwent biopsy of concerning lung nodule 05/2011 - path revealed AFB but culture was negative. He remains asymptomatic. Last CXR was stable. If any change may need repeat CT of the chest. 6. Syncope - sounds like a vasovagal [...] also needs to limit the time that henaps in the afternoon. Hopefully with these interventions he can break this pattern. If not we can try a sleep aid but that would be a short term solution to try to break the pattern. documented in this encounter Plan of Treatment Not on file documented as of this encounter Visit Diagnoses Diagnosis Human immunodeficiency virus (HIV) disease ([facility])- Primary Human immunodeficiency virus [HIV] disease Encounter for long-term (current) use of other medications documented in this encounter Care Teams Braille Coder Relationship Specialty Start Date End Date Hanane Pollock NP [facility] [address] [place] [address] PCP - General 01/30/09 02/23/19 documented as of this encounter
--- OUTSIDE RECORDS SUMMARY | 2024-05-05 13:59 | XMS_ITS | Encounter Summary ---
Author Organization [facility] Address [address] [place] [address] Care Team Providers Care Senior Accounting Associate Name Role Phone Unknown, Provider Primary Care Provider None, Provider Primary Care Provider Sabrina Kiran BINDER OPERATOR Primary Care Provider Encounter Details Date Type Department Care Team (Late st Contact Info) Description 08/12/2019 Lab Requisition [facility] Pathology & Laboratory Medicine - [address] [address] Unknown, Provider, Social History Tobacco Use Types Packs/Day Years [...] Procedure Name Priority Date/Time Associated Diagnosis Comments QUANTIFERON TB GOLD PLUS Routine 08/11/2019 7:19 EST documented in this encounter Results * QUANTIFERON TB GOLD PLUS (08/11/2019 7:19 EST) Quantiferon Interpretation Negative Negative 08/13/2019 13:52 EST [facility] Comment: No interferon-gamma response to M. tuberculosis antigens was detected. ??Infection with M. tuberculosis is unlikely. A single negative result does not exclude infection with M. tuberculosis. ??In patients at high risk for M. tuberculosis infection, a second test should be considered in accordance with the 2017 ATS/IDSA/CDC Clinical Practice Guidelines for Diagnosis of Tuberculosis in Adults and Children. [Gemma RAMIREZ et. al. Clin. Infect. Dis. 2017:64 (2) ??: 111-115]. Results were obtained with the [employer]agen QuantiFERON TB Gold Plus JOSEFINA. TB1 Ag minus Nil 0.02 IU/ml 08/13/19 13:52 EST [facility] TB2 Ag minus Nil 0.03 IU/mL 08/13/19 13:52 EST [facility] Blood VENOUS BLOOD / Unknown 08/11/2019 7:19 EST 08/12/2019 16:26 EST Narrative [facility] - 08/13/2019 13:52 EST Results were obtained with the [employer]agen QuantiFERON-TB Gold Plus JOSEFINA. Provider Unknown CHEMISTRY & BLOOD GA S ORDERABLES Performing Organization Address City/State/[facility] Co de Phone Number [facility] [address] [place] [address] documented in this encounter Visit Diagnoses Not on filedocumented in this encounter Care Teams Senior Accounting Associate Relationship Specialty Start Date End Date Unknown, Provider, PCP - General 02/24/19 03/01/20 None, Provider PCP - General 03/02/20 03/28/21 Sabrina Jerome NP [address] [place] [phone] PCP - General 03/29/21 documented as of this encounter
--- OUTSIDE RECORDS SUMMARY | 2024-05-05 13:59 | XMS_ITS | Encounter Summary ---
Author Organization [facility] Address [address] [place] [address] Care Team Providers Care Senior Reservoir Engineer Name Role Phone None, Provider Primary Care Provider Sabrina Kiran EXHIBIT BUILDER Primary Care Provider Encounter Details Date Type Department Care Team (Late st Contact Info) Description 03/02/2020 Lab Requisition [facility] Pathology & Laboratory Medicine - [address] [address] Outr Resulting Lab, Provider Social History Tobacco [...] Diagnosis Comments HIV 1 RNA QUANTITATION Routine 03/02/2020 7:38 EDT documented in this encounter Results * HIV 1 RNA QUANTITATION (03/02/2020 7:38 EDT) HIV RNA Detection, Qual Undetected Undetected copies/mL 03/06/2020 14:[address] [facility] Blood VENOUS BLOOD / Unknown 03/02/2020 7:38 EDT 03/02/2020 15:47 EDT [address]arr[address] [facility] - 03/06/2020 14:18 EDT The quantification range of this assay is 20 IU/mL to 10,000,000 IU/mL. ??Testing was performed on the PADILLA Ampliprep/PADILLA TaqMan HIV v2.0 ([employer] Provider Outr Resulting Lab CHEMISTRY & BLOOD GAS ORDERABLES [facility] [address] [place] [address] documented in this encounter Visit Diagnoses Not on filedocumented in this encounter Care Teams Senior Reservoir Engineer Relationship Specialty Start Date End Date None, Provider PCP - General 03/02/20 03/28/21 Sabrina Jerome NP [address] [place] [phone] PCP - General 03/29/21 documented as of this encounter
--- OUTSIDE RECORDS SUMMARY | 2024-05-05 13:59 | XMS_ITS | Encounter Summary ---
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 Procedures RAD US ABDOMEN ONE ORGAN/QUADRANT Juli Franz MD [address] [place] [address] Referral ID Status Reason Start Date Expiration Date Visits Re quested Visits Authorized [id number] Closed 03/30/2014 1 1 Reason for Visit * Reason Comments Follow-up Encounter Details Date Type Department Care Team (Late st Contact Info) Description 03/30/2014 9:45 EDT Office Visit [facility] Infectious Disease - [address] [address] Juli Franz MD AIDS (acquired immune deficiency syndrome) (CMS-HCC) (Primary Dx); Encounter for long-term (current) use of other medications; HCV infection; Viral hepatitis B without mention of hepatic coma, chronic, without mention of hepatitis delta Social History Tobacco Use Types Packs/Day Years [...] kg (168 lb 6.9 oz) 03/30/2014 1000 E DT Height - - Body Mass Index 24.87 05/23/2011 0832 EST documented in this encounter Ordered Prescriptions Prescription Sig Dispensed Refills Start Date End Da te Raltegravir (ISENTRESS) 400 mg tabletIndications:AIDS (acquired immune deficiency syndrome) ([facility]),Encounter for long-term (current) use of other medications Take 1 Tab by mouth 2 times daily. 60 Tab 3 03/30/2014 07/20/2014 atazanavir (REYATAZ) 300 mg capsuleIndications:AIDS (acquired immune deficiency syndrome) ([facility]),Encounter for long-term (current) use of other medications Take 1 Cap by mouth daily. 30 Cap 3 03/30/2014 07/20/2014 tenofovir (VIREAD) 300 mg tabletIndications:AIDS (acquired immune deficiency syndrome) ([facility]),Encounter for long-term (current) use of other medications Take 1 Tab by mouth daily. 30 Tab 3 03/30/2014 07/20/2014 ritonavir (NORVIR) 100 mg tabletIndications:AIDS (acquired immune deficiency syndrome) ([facility]),Encounter for long-term (current) use of other medications Take 1 Tab by mouth every 24 hours. 30 Tab 3 03/30/2014 07/20/2014 lamiVUDine (EPIVIR) 300 mg tabletIndications:AIDS (acquired immune deficiency syndrome) ([facility]),Encounter for long-term (current) use of other medications Take 1 Tab by mouth daily. 30 Tab 3 03/30/2014 07/20/2014 documented in this encounter Progress Notes * Lavonne Ng - 03/31/2014 0841 EDT Mailed office note, med list and lab orders to Hanane Pollock. * Juli Franz MD - 03/30/2014 0942 EDT [facility] FOLLOWUP NOTE DOS 03/30/2014 Last seen: 11/17/2013 [...] movement throughout on left. No dullness to percussion. No increased vocal fremitus Cardiac exam reveals a [...] 90 Bili 1.34 Alk phos 93 AST/ALT 20/41 CK 117 Albumin 4.5 Lytes wnl HCV [...] myself in the comprehensive care clinic in 4- 6 months. 2. Tobacco [...] Associated Diagnoses Orde r Schedule RAD US ABDOMEN ONE ORGAN/QUADRANT Imaging Routine HCV infection Viral hepatitis B without mention of hepatic coma, chronic, without mention of hepatitis delta Ordered: 03/30/2014 documented as of this encounter Visit Diagnoses Diagnosis AIDS (acquired immune deficiency syndrome) ([facility])- Primary Human immunodeficiency virus [HIV] disease Encounter for long-term (current) use of other medications HCV infection Unspecified viral hepatitis C without hepatic coma Viral hepatitis B without mention of hepatic coma, chronic, without mention of hepatitis delta documented in this encounter Discontinued Medications Medication Sig Discontinue Reason Start Date End Da te lamiVUDine (EPIVIR) 300 mg tabletIndications:AIDS (acquired immune deficiency syndrome) ([facility]),Encounter for long-term (current) use of other medications Take 1 Tab by mouth daily. Reorder 11/17/2013 03/30/2014 ritonavir (NORVIR) 100 mg tabletIndications:AIDS (acquired immune deficiency syndrome) ([facility]),Encounter for long-term (current) use of other medications Take 1 Tab by mouth every 24 hours. Reorder 11/17/2013 03/30/2014 tenofovir (VIREAD) 300 mg tabletIndications:AIDS (acquired immune deficiency syndrome) ([facility]),Encounter for long-term (current) use of other medications Take 1 Tab by mouth daily. Reorder 11/17/2013 03/30/2014 atazanavir (REYATAZ) 300 mg capsuleIndications:AIDS (acquired immune deficiency syndrome) ([facility]),Encounter for long-term (current) use of other medications Take 1 Cap by mouth daily. Reorder 11/17/2013 03/30/2014 Raltegravir (ISENTRESS) 400 mg tabletIndications:AIDS (acquired immune deficiency syndrome) ([facility]),Encounter for long-term (current) use of other medications Take 1 Tab by mouth 2 times daily. Reorder 11/17/2013 03/30/2014 documented as of this encounter Care Teams New Car Sales Manager Relationship Specialty Start Date End Date Hanane Pollock NP [facility] [address] [place] [address] PCP - General 01/30/09 02/23/19 documented as of this encounter
--- OUTSIDE RECORDS SUMMARY | 2024-05-05 13:59 | XMS_ITS | Encounter Summary ---
Author Organization [facility] Address [address] [place] [address] Care Team Providers Care Loan Closer Name Role Phone Hanane Pollock NP Primary Care Provider [phone] Encounter Details Date Type Department Care Team (Late st Contact Info) Description 12/21/2014 Orders Only [facility] Infectious Disease - [facility] [address] [place] [address] Juli Franz MD Social History Tobacco Use [...] Diagnosis Comments HIV 1 RNA QUANTITATION Routine 12/14/2014 11:44 EDT documented in this encounter Results * HIV 1 RNA QUANTITATION (12/14/2014 11:44 EDT) HIV1 RNA, External Undetected Undetected copies/mL [facility] Comment:Please see the scann ed report in PRISM for further interpretation. Test performed by [facility]. Blood specimen (specimen) 12/14/2014 11:44 EDT Juli Franz MD CHEMISTRY & BLOOD GA S ORDERABLES [facility] documented in this encounter Visit Diagnoses Not on filedocumented in this encounter Care Teams Loan Closer Relationship Specialty Start Date End Date Hanane Pollock, SOM [facility] [address] [place] [address] PCP - General 01/30/09 02/23/19 documented as of this encounter
--- OUTSIDE RECORDS SUMMARY | 2024-05-05 13:59 | XMS_ITS | Encounter Summary ---
Author Organization [facility] Address [address] [place] [address] Care Team Providers Care Client Delivery Specialist Name Role Phone Hanane Pollock NP Primary Care Provider [phone] Reason for Visit * Reason Onset Date Comments Other 04/29/2018 Encounter Details Date Type Department Care Team (Late st Contact Info) Description 04/29/2018 Telephone [facility] General Surgery - [address] [address] Bharat Dowd MD [address] [facility], [address] [place] [address] Other Social History Tobacco Use [...] encounter Miscellaneous Notes * Telephone Encounter - Terri Coelho - 04/29/2018 1541 EDT I called Guanakito King's partner. He insisted that Guanakito had his colonoscopy here at [facility], which I told him I could not find when he had it or who did it. He was concerned that I could not find it; therefore, I called Guanakito's nurse practitioner Hanane Pollock at [phone], who did research and determinedthat Dr. Sarkis Dean did it 09/12/[address] [facility], and it was found to have a polyp removed which was a hyperplastic polyp. Dr. Dowd saw Guanakito in the office on 07/20/08 and had me put in a reminder to have him call the office in 2008 to schedule a f/u colonoscopy which I will try and book after 09/12/18. documented in this encounter Plan of Treatment Not on file documented as of this encounter Visit Diagnoses Not on filedocumented in this encounter Care Teams Client Delivery Specialist Relationship Specialty Start Date End Date Hanane Pollock, DIETIST [facility] [address] [place] [address] PCP - General 01/30/09 02/23/19 documented as of this encounter
--- OUTSIDE RECORDS SUMMARY | 2024-05-05 13:59 | XMS_ITS | Encounter Summary ---
Author Organization [facility] Address [address] [place] [address] Care Team Providers Care Electro Plater Name Role Phone Hanane Pollock NP Primary Care Provider [phone] Reason for Visit * Reason Onset Date Comments Other 04/29/2018 Encounter Details Date Type Department Care Team (Late st Contact Info) Description 04/29/2018 Telephone [facility] General Surgery - [address] [address] Bharat Dowd MD [address] [facility], [address] [place] [address] Other Social History Tobacco Use [...] Sarkis Dean performed Guanakito's colonoscopy on September at [facility]. It was normal with a hyperplastic polyp. He is due anytime after 09/12/18. Fernando will call me back in to schedule this. documented in this encounter Plan of Treatment Not on file documented as of this encounter Visit Diagnoses Not on filedocumented in this encounter Care Teams Electro Plater Relationship Specialty Start Date End Date Hanane Pollock NP [facility] [address] [place] [address] PCP - General 01/30/09 02/23/19 documented as of this encounter
--- OUTSIDE RECORDS SUMMARY | 2024-05-05 13:59 | XMS_ITS | Encounter Summary ---
Author Organization [facility] Address [address] [place] [address] Care Team Providers Care Garde Manager Name Role Phone Hanane Pollock NP Primary Care Provider [phone] Reason for Visit * Reason Onset Date Comments Medications Refill 02/14/2017 Encounter Details Date Type Department Care Team (Late st Contact Info) Description 02/14/2017 Telephone [facility] Infectious Disease - [address] [address] Jinny Francisco RN Medications Refill Social History Tobacco Use Types [...] encounter Miscellaneous Notes * Telephone Encounter - Jinny Francisco V RN - 02/14/2017 1227 EDT See prior note documented in this encounter Plan of Treatment Not on file documented as of this encounter Visit Diagnoses Not on filedocumented in this encounter Care Teams Garde Manager Relationship Specialty Start Date End Date Hanane Pollock NP [facility] [address] [place] [address] PCP - General 01/30/09 02/23/19 documented as of this encounter
--- OUTSIDE RECORDS SUMMARY | 2024-05-05 13:59 | XMS_ITS | Encounter Summary ---
Author Organization [facility] Address [address] [place] [address] Care Team Providers Care Human Resources Manager Name Role Phone Hanane Pollock NP Primary Care Provider [phone] Encounter Details Date Type Department Care Team (Late st Contact Info) Description 04/18/2016 Orders Only [facility] Infectious Disease - [address] [address] Juli Franz MD Social History Tobacco Use [...] Diagnosis Comments HIV 1 RNA QUANTITATION Routine 04/04/2016 15:12 EDT documented in this encounter Results * (ABNORMAL) HIV 1 RNA QUANTITATION (04/04/2016 15:12 EDT) HIV1 RNA, External Detected Undected copies/mL [facility] Comment:Please see the scann ed report in PRISM for further interpretation. Test performed by the [facility]. Blood specimen (specimen) 04/04/2016 15:12 EDT Juli Franz MD CHEMISTRY & BLOOD GA S ORDERABLES [facility] documented in this encounter Visit Diagnoses Not on filedocumented in this encounter Care Teams Human Resources Manager Relationship Specialty Start Date End Date Hanane Pollock NP [facility] [address] [place] [address] PCP - General 01/30/09 02/23/19 documented as of this encounter
--- OUTSIDE RECORDS SUMMARY | 2024-05-05 13:59 | XMS_ITS | Encounter Summary ---
Author Organization [facility] Address [address] [place] [address] Care Team Providers Care Hand Reamer Name Role Phone Hanane Pollock NP Primary Care Provider [phone] Reason for Visit * Reason Comments Other Encounter Details Date Type Department Care Team (Late Contact Info) Description 03/09/2018 Refill [facility] Infectious Disease [address] [address] Juli Franz MD Other Social History Tobacco [...] Encounter - Ceci Fletcher RN - 03/10/2018 8618 EDT Left message on Guanakito' mobil phone [phone] (M). He should call Hanane Odell NP at the [facility] for med refills. documented in this encounter Plan of Treatment Not on file documented as of this encounter Visit Diagnoses Not on filedocumented in this encounter Care Teams Hand Reamer Relationship Specialty Start Date End Date Hanane Pollock [facility] [address] [place] [address] PCP - General 01/30/09 02/23/19 documented as of this encounter
--- OUTSIDE RECORDS SUMMARY | 2024-05-05 13:59 | XMS_ITS | Encounter Summary ---
Author Organization [facility] Address [address] [place] [address] Care Team Providers Care Civil Laboratory Technician Name Role Phone Hanane Pollock NP Primary Care Provider [phone] Reason for Visit * Reason Onset Date Comments Follow-up 11/20/2015 Encounter Details Date Type Department Care Team (Late st Contact Info) Description 11/20/2015 Telephone [facility] Infectious Disease - [address] [address] New Mix RN Follow-up Social History Tobacco Use Types Packs/Day [...] encounter Miscellaneous Notes * Telephone Encounter - New Mix RN - 11/20/2015 1316 EDT Patient would like a call from Dr. Franz [phone], to discuss the medical situation they spoke about at his 11/15/2015 appointment in [facility]. Explained Dr. Franz was at a conference today and wouldn't be able to return his call today. Explained that she is aware he called today. Mailed patient an after visit summary with the [employer] code, so he join [employer] on line. Dr. Franz may change his medications, she will contact patient to discuss options. NEW MIX RN documented in this encounter Plan of Treatment Not on file documented as of this encounter Visit Diagnoses Not on filedocumented in this encounter Care Teams Civil Laboratory Technician Relationship Specialty Start Date End Date Hanane Pollock, SOM [facility] [address] [place] [address] PCP - General 01/30/09 02/23/19 documented as of this encounter
--- OUTSIDE RECORDS SUMMARY | 2024-05-05 13:59 | XMS_ITS | Encounter Summary ---
Author Organization [facility] Address [address] [place] [address] Care Team Providers Care Merchandise Examiner Name Role Phone Hanane Pollock NP Primary Care Provider [phone] Reason for Visit * Reason Comments Follow-up pt says no pain, but it does bleed and there is something hanging out a bit * Consult (Routine/Next Available) - Specialty Report Received Specialty Diagnoses / Procedures Referred By Ezequiel arita Referred To Contact General Surgery Diagnoses Perianal mass Juli Franz MD [address] [place] [address] Bharat Dowd MD [address] [place] [phone] Referral ID Status Reason Start Date Expiration Date Visits Requested Visits Authorized [id number] Specialty Report Received Specialty Services Required 5 1 1 Encounter Details Date Type Department Care Team (Late st Contact Info) Description 07/20/2015 15:30 EST Office Visit [facility] General Surgery - [address] [id number] Bharat Dowd MD [address] [place] [phone] Internal hemorrhoids with complication (Primary Dx) Social History Tobacco Use Types [...] as of this encounter Progress Notes * Bharat Dowd MD - 07/20/2015 1551 EST [...] and sits and has to strain to move his bowels. This will aggravate some rectal bleeding on occasion. He had a colonoscopy in 2008 which was normal. At a recent visit with his [...] encounter Visit Diagnoses Diagnosis Internal hemorrhoids with complication- Primary Internal hemorrhoids with other complication documented in this encounter Discontinued Medications Medication Sig Discontinue Reason Start Date End Da te Calcium-Cholecalciferol , D3, (CALCARB) 600 mg(1,500mg) -200 unit Tab Take 1 Tab by mouth daily. Patient Stopped Taking 07/20/2015 Multivitamins with Minerals Tab Take 1 Tab by mouth daily. Patient Stopped Taking 07/20/2015 documented as of this encounter Care Teams Merchandise Examiner Relationship Specialty Start Date End Date Hanane Pollock NP [facility] [address] [place] [address] PCP - General 01/30/09 02/23/19 documented as of this encounter
--- OUTSIDE RECORDS SUMMARY | 2024-05-05 13:59 | XMS_ITS | Encounter Summary ---
Author Organization [facility] Address [address] [place] [address] Care Team Providers Care Decal Decorator Name Role Phone Hanane Pollock NP Primary Care Provider [phone] Reason for Visit * Reason Comments Other Encounter Details Date Type Department Care Team (Late st Contact Info) Description 09/10/2017 Refill [facility] Infectious Disease [address] [address] Juli Franz MD Other Social History Tobacco [...] Diagnoses Diagnosis AIDS (acquired immune deficiency syndrome) ([facility]) Human immunodeficiency virus [HIV] disease AIDS ([facility]) Human immunodeficiency virus [HIV] disease documented in this encounter Care Teams Decal Decorator Relationship Specialty Start Date End Date Hanane Pollock NP [facility] [address] [place] [address] PCP - General 01/30/09 02/23/19 documented as of this encounter
--- OUTSIDE RECORDS SUMMARY | 2024-05-05 13:59 | XMS_ITS | Encounter Summary ---
Author Organization [facility] Address [address] [place] [address] Care Team Providers Care Offender Job Retention Specialist Name Role Phone None, Provider Primary Care Provider Unavailabl e Reason for Visit * Reason Comments Follow-up Encounter Details Date Type Department Care Team (Late st Contact Info) Description 03/06/2020 9:00 EDT Telemedicine [facility] Infectious Disease - [address] [address] Lit Pina, DO [address] [facility], [address] [place] [address] Acquired immunodeficiency syndrome (HCC-CMS) (Primary Dx); Asymptomatic HIV infection (HCC-CMS) Social History Tobacco Use Types Packs/Day Years [...] Progress Notes * Lit Pina, DO - 03/06/2020 0900 EDT [...] Chief Complaint: HIV follow-up care ?? HPI: ??Snide??is a 50 y.o.??male with history significant for HIV who presents with routine follow up. 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 Most recent CD4 done inJ2019 was 836 and HIV VL in Jul 2019??was <??20. ??His current VL is pending??. ??Pt on raltegravir 600mg two tabs daily and odefsey. Very good with adherence. 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 Both parties are on ART and have VL < 20. ?? Closed relationship. His partner is followed at [facility] as well. ?? Doing well [...] day (Patient not taking: Reported on 09/17/2017) wabwzofoqn-dnjnmhaw-dzqzqr ala 200-25-25 mg tablet Take 1 Tab by mouth daily. lisinopril (PRINIVIL, ZESTRIL) 10 mg tablet Take 1 Tab by mouth daily. raltegravir 600 mg tablet Take 1,200 mg by mouth daily. ? Allergies Allergen Reactions ??? Penicillins Rash ??? Sulfa (Sulfonamide Antibiotics) Hives ?? 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 Flu fall 2019. ??Hep A vaccine indistant past. ??Tdap 2011. ?[place] Apr 2019, looked good so repeat in [...] (HCC-CMS)- Primary Human immunodeficiency virus [HIV] disease Asymptomatic HIV infection (HCC-CMS) Asymptomatic human immunodeficiency virus (HIV) infection status documented in this encounter Care Teams Offender Job Retention Specialist Relationship Specialty Start Date End Date None, Provider PCP - General 03/02/20 03/28/21 documented as of this encounter
--- OUTSIDE RECORDS SUMMARY | 2024-05-05 13:59 | XMS_ITS | Encounter Summary ---
Author Organization [facility] Address [address] [place] [address] Care Team Providers Care Shrimp Boat Captain Name Role Phone Hanane Pollock NP Primary Care Provider [phone] Encounter Details Date Type Department Care Team (Late st Contact Info) Description 11/17/2015 Documentation Visit [facility] Infectious Disease - Main [address] [address] Juli Franz MD Social History Tobacco Use [...] Progress Notes * Juli Franz MD - 11/17/2015 1125 EDT Guanakito Cedillo: Per pharmacy your prescription for Reyataz and [...] 4 weeks and FU with me in [facility].the following month documented in this encounter Plan of Treatment Not on file documented as of this encounter Visit Diagnoses Not on filedocumented in this encounter Care Teams Shrimp Boat Captain Relationship Specialty Start Date End Date Hanane Pollock NP [facility] [address] [place] [address] PCP - General 01/30/09 02/23/19 documented as of this encounter
--- OUTSIDE RECORDS SUMMARY | 2024-05-05 13:59 | XMS_ITS | Encounter Summary ---
Author Organization [facility] Address [address] [place] [address] Care Team Providers Care Government Minister Name Role Phone Unknown, Provider MD Primary Care Provider None, Provider Primary Care Provider Sabrina Kiran MINER PLACER Primary Care Provider Encounter Details Date Type Department Care Team (Late st Contact Info) Description 06/14/2019 Lab Requisition [facility] Pathology & Laboratory Medicine - [address] [address] Santino Leal, [address] VOSS [address] [place] [address] [id number] Encounter for other general examination Social History Tobacco Use Types Packs/Day Years [...] Procedure Name Priority Date/Time Associated Diagnosis Comments SURGICAL PATHOLOGY Today 06/14/2019 10 :55 EST Encounter for other general examination documented in this encounter Results * SURGICAL PATHOLOGY (06/14/2019 10:55 EST) Final Diagnosis A. SOFT PALATE, LEFT, BIOPSY: - Squamous mucosa with mild chronic inflammation, mild parakeratosis, and focal subepithelial fibrosis. See comment. - No dysplasia identified. 06/18/2019 15:45 [facility] at 1545 Diagnosis Comment Deeper sections have been examined. 06/18/2019 15:45 [facility] Clinical History History of HIV infection K13.70. Left soft palate lesion 06/18/2019 15:45 [facility] Attestation There was significant resident/fellow involvement in the diagnostic evaluation of this case. By the signature below, the attending physician certifies that they have personally conducted a gross and/or microscopic examination of the described specimens and rendered or confirmed the above diagnosis. 06/18/2019 15:45 [facility] at 1545 Gross Description A. Received in formalin labelled with proper patient identification (initials S, J) and L soft palate is a single lazcano-white tissue fragment (0.4 x 0.2 x 0.1 cm). Submitted intact in A1. RALEIGH BAILON 06/15/2019 07:58 06/18/2019 15:45 [facility] Resident/Hung w: Joycelyn Cardenas MD 06/18/2019 15:45 [facility] Scanned Images 06/18/2019 15:45 [facility] Tissue ENTIRE ORAL MUCOUS MEMBRANE / Unknown 06/14/2019 10:55 EST 06/14/2019 21:51 EST Santino Leal DO PATHOLOGY ORDER [facility] [address] [place] [id number] documented in this encounter Visit Diagnoses Diagnosis Encounter for other general examination documented in this encounter Care Teams Government Minister Relationship Specialty Start Date End Date Unknown, Provider, PCP - General 02/24/19 03/01/20 None, Provider PCP - General 03/02/20 03/28/21 Sabrina Jerome, MINER PLACER [address] [place] [phone] PCP - General 03/29/21 documented as of this encounter
--- OUTSIDE RECORDS SUMMARY | 2024-05-05 13:59 | XMS_ITS | Encounter Summary ---
Author Organization [facility] Address [address] [place] [address] Care Team Providers Care Osteopathic Medicine Teacher Name Role Phone Hanane Pollock NP Primary Care Provider [phone] Reason for Visit * Reason Onset Date Comments Medications Refill 02/14/2017 Encounter Details Date Type Department Care Team (Late st Contact Info) Description 02/14/2017 Refill [facility] Infectious Disease - [address] [address] Juli Franz MD Medications Refill Social History [...] mouth every day 30 Tab 1 02/14/2017 ieqbubxybe-pujbopsz-tfolfu ala 200-25-25 mg tablet Take 1 Tab by mouth daily. 30 Tab 1 02/14/2017 03/12/2017 documented in this encounter Miscellaneous Notes * Telephone Encounter - Jinny Francisco V RN - 02/14/[address] [facility] pt. Partner of pt calling insisting rx refills be sent in immediately Refills on Odefsey and cardura sent to requested pharmacy documented in this encounter Plan of Treatment Not on file documented as of this encounter Visit Diagnoses Not on filedocumented in this encounter Discontinued Medications Medication Sig Discontinue Reason Start Date End Da te doxazosin (CARDURA) 4 mg tablet Take 1 tablet by mouth every day Reorder 01/06/2017 02/14/2017 ODEFSEY 200-25-25 mg tablet Take 1 tablet by mouth every day 01/06/2017 02/14/2017 documented as of this encounter Care Teams Osteopathic Medicine Teacher Relationship Specialty Start Date End Date Hanane Pollock NP [facility] [address] [place] [address] PCP - General 01/30/09 02/23/19 documented as of this encounter
--- OUTSIDE RECORDS SUMMARY | 2024-05-05 13:59 | XMS_ITS | Encounter Summary ---
Author Organization [facility] Address [address] [place] [address] Care Team Providers Care Painter Drum Name Role Phone Hanane Pollock NP Primary Care Provider [phone] Reason for Visit * Reason Comments Follow-up Encounter Details Date Type Department Care Team ([facility] st Contact Info) Description 09/17/2017 9:45 EST Office Visit [facility] Infectious Disease [address] [address] Juli Franz MD AIDS (acquired immune deficiency syndrome) (CMS-HCC) (HCC-CMS) (Primary Dx); Essential hypertension; Tobacco use; Chronic active hepatitis B without delta agent (CMS-HCC) (HCC-CMS); Encounter for long-term current use of high [...] 3.7 oz) 09/17/[address] Height - - Body Mass Index 26.47 [...] Refills Start Date End Da te raltegravir 600 mg tablet Take 1,200 mg by mouth daily. 60 Tab 5 09/17/2017 08/21/2023 vbjfihknud-dlrrtquk-hrmbuf ala 200-25-25 mg tablet Take 1 Tab by mouth daily. 30 Tab 5 09/17/2017 06/28/2022 documented in this encounter Progress Notes * Juli Franz MD - 09/17/2017 0945 EST [facility] FOLLOWUP NOTE DOS 09/17/2017 Last seen: [...] none + MJ daily Lives with his long-term partner who is also HIV + They [...] GC/chlamydia neg Lipid panel: TGs 88 HDL43 [id number] US of the renal arteries done 03/2017 was nl ASSESSMENT AND PLAN: 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 He has good adherence. He had had an increase in his Cr so we wanted to make a change to decrease risk for long-term nephrotoxicity. He has chronic HBV so wanted to continue TDF and 3TC. Use of the ATV and RTV with the TDF increases the TDF levels and increases risk for nephrotoxicity.Therefore we changed his HAART from ATV/RTV/RAL/TDF/3TC to 3TC/TDF/RAL and rilpivirine in place of the boostedATV. He started the new regimen late November 2015. At the time of his visit in October 2016 we simplifiedthe regimen to Odefsey (rilpivirine/TAF/FTC) once a day in combination with his raltegravir twice da jd. He is tolerating his present medications well [...] he is due for his next prescritopn. Ambrosio then be on Odefsey (FTC/TAF/rilpivirine) and Isentress HD 1200 mg once daily. He will need to have repeat blood work and a follow-up with me in the [facility] in 4-6 months. 2. Tobacco use - He did not tolerate Chantix, but he has been successful in decreasing his tobacco use on his own. He is motivated to quit. Unfortunately it is not clear that his partner is ready to quit. Guanakito is still focused on the goal of quitting. 3. HTN - He has not been seen at the [facility] to have his blood pressure checked ?since he was last seen. At the time of his last visit we made the plan to rechallenge with lisinopril but the plan was to add it to the Cardura. He stopped the Cardura but is taking the lisinopril. His BPis in a good range today, so will plan to continue him on lisinopril alone for BP control. Renal artery study was nl. He is bradycardic on exam [...] any rectal bleeding. Needs repeat HAV vaccine. OnTAF/FTC for HBV. Need to follow HBV DNA [...] Diagnoses Diagnosis AIDS (acquired immune deficiency syndrome) ([facility])- Primary Human immunodeficiency virus [HIV] disease Essential hypertension Unspecified essential hypertension Tobacco use Tobacco use disorder Chronic active hepatitis B without delta agent ([facility]) Encounter for long-term current use of high risk medication documented in this encounter Discontinued Medications Medication Sig Discontinue Reason Start Date End Da te Raltegravir (ISENTRESS) 400 mg tabletIndications:AIDS (acquired immune deficiency syndrome) ([facility]),AIDS ([facility]) Take 1 Tab by mouth 2 times daily. 03/12/2017 09/17/2017 fjhwovshfm-wsqyutea-chwtf o ala 200-25-25 mg tablet Take 1 Tab by mouth daily. Reorder 03/12/2017 09/17/2017 documented as of this encounter Historical Medications * This list may reflect changes made after this encounter. Medication Sig Dispensed Refills Start Date End Date Cholecalciferol, Vitamin D3, 400 unit tablet Take 400 Units by mouth daily. added in this encounter Care Teams Painter Drum Relationship Specialty Start Date End Date Hanane Pollock NP [facility] [address] [place] [address] PCP - General 01/30/09 02/23/19 documented as of this encounter
--- OUTSIDE RECORDS SUMMARY | 2024-05-05 13:59 | XMS_ITS | Encounter Summary ---
Author Organization [facility] Address [address] [place] [address] Care Team Providers Care Invas Tech Name Role Phone Hanane Pollock NP Primary Care Provider [phone] Encounter Details Date Type Department Care Team (Late st Contact Info) Description 05/31/2015 Orders Only [facility] Infectious Disease - [address] [address] Juli Franz MD AIDS (acquired immune deficiency syndrome) ([facility]) (Primary Dx); AIDS ([facility]) Social History Tobacco Use Types Packs/Day [...] Dispensed Refills Start Date End Da te ritonavir (NORVIR) 100 mg tabletIndications:AIDS (acquired immune deficiency syndrome) ([facility]),AIDS ([facility]) Take 1 Tab by mouth every 24 hours 30 Tab 5 05/31/2015 11/27/2015 tenofovir (VIREAD) 300 mg tabletIndications:AIDS (acquired immune deficiency syndrome) ([facility]),AIDS ([facility]) Take 1 Tab by mouth daily 30 Tab 5 05/31/2015 12/29/2015 Raltegravir (ISENTRESS) 400 mg tabletIndications:AIDS (acquired immune deficiency syndrome) ([facility]),AIDS ([facility]) Take 1 Tab by mouth 2 times daily 60 Tab 5 05/31/2015 12/29/2015 lamiVUDine (EPIVIR) 300 mg tabletIndications:AIDS (acquired immune deficiency syndrome) (HCC-CMS),AIDS (HCC-CMS) Take 1 Tab by mouth daily 30 Tab 5 05/31/2015 12/29/2015 atazanavir (REYATAZ) 300 mg capsuleIndications:AIDS (acquired immune deficiency syndrome) (HCC-CMS),AIDS (HCC-CMS) Take 1 Cap by mouth daily 30 Cap 5 05/31/2015 11/27/2015 documented in this encounter Plan of Treatment Not on file documented as of this encounter Visit Diagnoses Diagnosis AIDS (acquired immune deficiency syndrome) ([facility])- Primary Human immunodeficiency virus [HIV] disease AIDS ([facility]) Human immunodeficiency virus [HIV] disease documented in this encounter Discontinued Medications Medication Sig Discontinue Reason Start Date End Da te atazanavir (REYATAZ) 300 mg capsuleIndications:AIDS (acquired immune deficiency syndrome) ([facility]),Encounter for long-term (current) use of other medications Take 1 Cap by mouth daily. Reorder 07/20/2014 05/31/2015 lamiVUDine (EPIVIR) 300 mg tabletIndications:AIDS (acquired immune deficiency syndrome) ([facility]),Encounter for long-term (current) use of other medications Take 1 Tab by mouth daily. Reorder 07/20/2014 05/31/2015 Raltegravir (ISENTRESS) 400 mg tabletIndications:AIDS (acquired immune deficiency syndrome) ([facility]),Encounter for long-term (current) use of other medications Take 1 Tab by mouth 2 times daily. Reorder 07/20/2014 05/31/2015 tenofovir (VIREAD) 300 mg tabletIndications:AIDS (acquired immune deficiency syndrome) ([facility]),Encounter for long-term (current) use of other medications Take 1 Tab by mouth daily. Reorder 07/20/2014 05/31/2015 ritonavir (NORVIR) 100 mg tabletIndications:AIDS (acquired immune deficiency syndrome) ([facility]),Encounter for long-term (current) use of other medications Take 1 Tab by mouth every 24 hours. Reorder 07/20/2014 05/31/2015 documented as of this encounter Care Teams Invas Tech Relationship Specialty Start Date End Date Hannae Pollock NP [facility] [address] [place] [address] PCP - General 01/30/09 02/23/19 documented as of this encounter
--- OUTSIDE RECORDS SUMMARY | 2024-05-05 13:59 | XMS_ITS | Encounter Summary ---
Author Organization [facility] Address [address] [place] [address] Care Team Providers Care Leakage Tester Name Role Phone Hanane Pollock NP Primary Care Provider [phone] Reason for Visit * Reason Comments Follow-up Encounter Details Date Type Department Care Team (Late st Contact Info) Description 08/31/2018 9:00 EST Office Visit [facility] Infectious Disease [address] [address] Lit Pina, DO [address] [facility], [facility] [address] [place] [phone] HIV (human immunodeficiency virus infection) ([facility]) (Primary Dx) Social History Tobacco Use Types [...] Progress Notes * Lit Pina, DO - 08/31/2018 0900 EST INFECTIOUS DISEASE CLINIC [...] 2017 was < 20. Pt on raltegravir 600mgtwo tabs daily and odefsey. Very good with [...] day (Patient not taking: Reported on 09/17/2017) kryzdnwxxx-vydqwgsm-zsntgc ala 200-25-25 mg tablet Take 1 Tab by mouth daily. lisinopril (PRINIVIL, ZESTRIL) 10 mg tablet Take 1 Tab by mouth daily. raltegravir 600 mg tablet Take 1,200 mg by mouth daily. Allergies Allergen Reactions ??? Penicillins Rash ??? Sulfa (Sulfonamide Antibiotics) Hives Social History Tobacco: down to 1PPD Alcohol:Rare, heavy in past Recreational drugs:THC, daily Herbal:none Professional:Not working now but does some [employer] Relationships / Living Situation: Sounds stable Sexual: [...] Sclera anicteric. Oropharnyx w/o erythema or exudates. Poor dentition Neck: supple, no LAD CV: RRR, no [...] cleared - Dental exam, Sees dental at [facility] Encouraged to get a PCM locally (Sabrina Jerome is a [employer]OUNTER close to pt) See us in follow [...] in clinic today. Lit Pina DO Pager [phone] Infectious Diseases documented in this encounter Plan of Treatment Not on file documented as of this encounter Visit Diagnoses Diagnosis HIV (human immunodeficiency virus infection) ([facility])- Primary Asymptomatic human immunodeficiency virus (HIV) infection status documented in this encounter Care Teams Leakage Tester Relationship Specialty Start Date End Date Hanane Pollock NP [facility] [address] [place] [address] PCP - General 01/30/09 02/23/19 documented as of this encounter
--- OUTSIDE RECORDS SUMMARY | 2024-05-05 13:59 | XMS_ITS | Encounter Summary ---
Author Organization [facility] Address [address] [place] [address] Care Team Providers Care Sign Erector Name Role Phone Hanane Pollock NP Primary Care Provider Reason for Visit * Reason Onset Date Comments Medication Management 11/20/2015 Encounter Details Date Type Department Care Team (Late Contact Info) Description 11/20/2015 Telephone [facility] Infectious Disease - [address] [address] Juli Franz MD Medication Management Social History Tobacco Use Types Packs/Day Years [...] encounter Miscellaneous Notes * Telephone Encounter - Beena Wayne - 11/21/2015 0859 EDT Faxed note to Hanane Pollock at [facility]. * Telephone Encounter - Juli Franz MD - 11/20/2015 [...] I think that this is a good time to make the change. He has had intermittent increase in Cr with low PO4 and hematuria on UA. Concerned about termite inspector toxicity of TDF but unable to Dc [...] ~ 4 - 6 weeks FU in [facility] in [facility] in January documented in this encounter Plan of Treatment Not on file documented as of this encounter Visit Diagnoses Not on filedocumented in this encounter Care Teams Sign Erector Relationship Specialty Start Date End Date Hanane Pollock NP [facility] [address] [place] [address] PCP - General 01/30/09 02/23/19 documented as of this encounter
--- OUTSIDE RECORDS SUMMARY | 2024-05-05 13:59 | XMS_ITS | Encounter Summary ---
Author Organization [facility] Address [address] [place] [address] Care Team Providers Care Dive Supervisor Name Role Phone Hanane Pollock NP Primary Care Provider [phone] Encounter Details Date Type Department Care Team (Latest Contact Info) Description 03/12/2016 Documentation Visit [facility] Infectious Disease - [address] [address] Juli Franz MD AIDS (acquired immunodeficiency syndrome), CD4 <=200 ([facility]) (Primary Dx) Social History Tobacco [...] Progress Notes * Juli Franz MD - 03/12/2016 1027 EDT Received lab results but no HIV PCR done. It looks like the lab did a HCV RNA instead. Called the pt and left a message for him to let him know that he will need to go in for a repeat blood draw. documented in this encounter Plan of Treatment Not on file documented as of this encounter Visit Diagnoses Diagnosis AIDS (acquired immunodeficiency syndrome), CD4 <=200 ([facility])- Primary Human immunodeficiency virus [HIV] disease documented in this encounter Care Teams Dive Supervisor Relationship Specialty Start Date End Date Hanane Pollock NP [facility] [address] [place] [address] PCP - General 01/30/09 02/23/19 documented as of this encounter
--- OUTSIDE RECORDS SUMMARY | 2024-05-05 13:59 | XMS_ITS | Encounter Summary ---
Author Organization [facility] Address [address] [place] [address] Care Team Providers Care Pattern Chain Builder Name Role Phone Hanane Pollock NP Primary Care Provider [phone] Reason for Visit * Reason Onset Date Comments Medication Problem 01/25/2015 Encounter Details Date Type Department Care Team (Late st Contact Info) Description 01/25/2015 Telephone [facility] Infectious Disease - [address] [address] Juli Franz MD Medication Problem Social History Tobacco Use Types Packs/Day Years [...] encounter Miscellaneous Notes * Telephone Encounter - Juli Franz MD - 01/25/2015 1712 EDT TC from [facility] stating that Guanakito went to package pick up Rxs and they were told that they were not ordered yet. I spoke to [facility] - they order the meds once monthly. Lorie Rossi last prescribed the meds 11/2014. They have 2 more refills left on that RX so they have active Rxs at [facility]. documented in this encounter Plan of Treatment Not on file documented as of this encounter Visit Diagnoses Not on filedocumented in this encounter Care Teams Pattern Chain Builder Relationship Specialty Start Date End Date Hanane Pololck, [facility] [address] [place] [address] PCP - General 01/30/09 02/23/19 documented as of this encounter
--- OUTSIDE RECORDS SUMMARY | 2024-05-05 13:59 | XMS_ITS | Encounter Summary ---
Author Organization [facility] Address [address] [place] [address] Care Team Providers Care Promotions Producer Name Role Phone None, Provider Primary Care Provider Sabrina Krian VISUAL COORDINATOR Primary Care Provider [phone] Encounter Details Date Type Department Care Team (Late st Contact Info) Description 07/28/2020 Lab Requisition [facility] Pathology & Laboratory Medicine - [address] [address] Outr Resulting Lab, Provider Social History Tobacco [...] Diagnosis Comments HIV 1 RNA QUANTITATION Routine 07/27/2020 16:30 EST T CELL SUBSETS Routine 07/27/2020 16:30 EST documented in this encounter Results * HIV 1 RNA QUANTITATION (07/27/2020 16:30 EST) HIV RNA Detection, Qual Undetected Undetected copies/mL 07/31/2020 14:55 EST [facility] Blood VENOUS BLOOD / Unknown 07/27/2020 16:30 EST 07/28/2020 17:29 EST Narrative [facility] - 07/31/2020 14:55 EST The quantification range of this assay is 20 IU/mL to 10,000,000 IU/mL. ??Testing was performed on the PADILLA Ampliprep/PADILLA TaqMan HIV v2.0 ([employer] Provider Outr Resulting Lab CHEMISTRY & BLOOD GAS ORDERABLES Performing Organization Address City/[facility] Co de Phone Number [facility] [address] [place] [address] * IMMUNODEFICIENCY PANEL (07/27/2020 16:30 EST) Pathologist [facility] % CD3 76 62 - 87 % 07/31/2020 16:28 EST [facility] % CD4 39 35 - 63 % 07/31/2020 16:28 EST [facility] % CD8 35 10 - 35 % 07/31/2020 16:28 EST [facility] Absolute CD4 1,398 329-1,427 Cells/uL 07/31/2020 16:28 EST [facility] Blood VENOUS BLOOD / Unknown 07/27/2020 16:30 EST 07/28/2020 17:27 EST Provider Outr Resulting Lab IMMUNOLOGY A ND SEROLOGY ORDERABLES Performing Organization Address City/[facility] Co de Phone Number [facility] [address] [place] [address] documented in this encounter Visit Diagnoses Not on filedocumented in this encounter Care Teams Promotions Producer Relationship Specialty Start Date End Date None, Provider PCP - General 03/02/20 03/28/21 Sabrina Jerome NP [address] [place] [address] PCP - General 03/29/21 documented as of this encounter
--- OUTSIDE RECORDS SUMMARY | 2024-05-05 13:59 | XMS_ITS | Encounter Summary ---
Author Organization [facility] Address [address] [place] [address] Care Team Providers Care Coiler Operator Name Role Phone Hanane Mccormack NP Primary Care Provider [phone] Encounter Details Date Type Department Care Team ([facility] st Contact Info) Description 05/22/2017 Results Only [facility] [phone] Peggy Dias, DO [address] [place] [address] Social History Tobacco Use Types Packs/Day Years [...] Priority Date/Time Associated Diagnosis Comments SURGICAL PATHOLOGY Routine 05/22/2017 7:28 EST documented in this encounter Results * SURGICAL PATHOLOGY (05/22/2017 7:28 EST) Pathology Report: SURGICAL PATHOLOGY REPORT Reports generated via electronic interface contain original data; however they are lacking the format of the original report. Caution should be taken when reading/interpret ing unformatted reports. Name: ? KALEB CEDILLO ? Accession #: ? [id number] ? : ? 1970 (Age: 47) ??M ? Collect Date: ? 05/22/2017 ? Location: ? [facility] ? Receive Date: ? 05/24/2017 ? Provider: PEGGY DIAS DO Copy to: HANANE MCCORMACK PHOTOVOLTAIC INSTALLATION TECHNICIAN ? Final Pathologic Diagnosis: SUBMITTED TISSUE, RIGHT, EXCISIONAL BIOPSY: - Hemorrhoids. - Overlying mucosa with focal erosion; negative for dysplasia. Document reviewed and electronically signed by: NANCY PATRICK MD Report ??Date: 05/28/2017 09:05 By the signature above, the attending physician certifies that he/she has personally conducted a gross and/or microscopic examination of the described specimens and rendered or confirmed the above diagnosis. Specimen(s) Received: Hemorrhoid tissue Clinical History: Hemorrhoids, bleeding Gross Description: ? Received in formalin labelled with proper patient identification (initials S, J) and right tissue is an irregular piece of soft tissue (2.2 x 1.2 x 0.7 cm). One surface is covered by lazcano-brown, granular, wrinkled mucosa. The surgical margin is inked blue. The specimen is submitted entirely in 1 and 2. CHANTAL Meraz ([facility]) 05/26/2017 9:24 AM End of Report [facility] 05/22/2017 7:28 EST 05/24/2017 7:28 EST Peggy Dias DO PATHOLOGY ORDERABLES [facility] [address] [place] [address] documented in this encounter Visit Diagnoses Not on filedocumented in this encounter Care Teams Coiler Operator Relationship Specialty Start Date End Date Hanane Mccormack, SOM [facility] [address] [place] [address] PCP - General 01/30/09 02/23/19 documented as of this encounter
--- OUTSIDE RECORDS SUMMARY | 2024-05-05 13:59 | XMS_ITS | Encounter Summary ---
Author Organization [facility] Address [address] [place] [address] Care Team Providers Care Furnace Reliner Name Role Phone Hanane Pollock NP Primary Care Provider [phone] Encounter Details Date Type Department Care Team (Late st Contact Info) Description 11/27/2015 Orders Only [facility] Infectious Disease - [address] [address] Juli Franz MD Social History Tobacco Use [...] (HCC-CMS) Take 1 Cap by mouth daily Alternate therapy 05/31/2015 11/27/2015 ritonavir (NORVIR) 100 mg tabletIndications:AIDS (acquired immune deficiency syndrome) (HCC-CMS),AIDS (HCC-CMS) Take 1 Tab by mouth every 24 hours Alternate therapy 05/31/2015 11/27/2015 documented as of this encounter Care Teams Furnace Reliner Relationship Specialty Start Date End Date Hanane Pollock NP [facility] [address] [place] [address] PCP - General 01/30/09 02/23/19 documented as of this encounter
--- OUTSIDE RECORDS SUMMARY | 2024-05-05 13:59 | XMS_ITS | Encounter Summary ---
Author Organization [facility] Address [address] [place] [address] Care Team Providers Care Behavioral Consultant Name Role Phone Unknown, Provider Primary Care Provider None, Provider Primary Care Provider Sabrina Kiran PET TRAINER Primary Care Provider Encounter Details Date Type Department Care Team (Late st Contact Info) Description 08/11/2019 Lab Requisition [facility] Pathology & Laboratory Medicine - [address] [address] Unknown, Provider, Social History Tobacco Use Types [...] Associated Diagnosis Comments T CELL SUBSETS Routine 08/11/2019 7:19 EST HIV 1 RNA QUANTITATION Routine 08/11/2019 7:19 EST documented in this encounter Results * HIV 1 RNA QUANTITATION (08/11/2019 7:19 EST) HIV 1 RNA Quant 0 Undetected copies/mL 08/12/2019 15:51 EST [facility] Comment: Not Detected HIV-1 RNA level is <20 copies/mL. This assay cannot accurately quantify HIV-1RNA below this level. Blood VENOUS BLOOD / Unknown 08/11/2019 7:19 EST 08/11/2019 15:21 EST Narrative [facility] - 08/12/2019 15:51 EST The quantification range of this assay is 20 IU/mL to 10,000,000 IU/mL. ??Testing was performed on the PADILLA Ampliprep/PADILLA TaqMan HIV v2.0 ([employer] Provider Unknown CHEMISTRY & BLOOD GA S ORDERABLES Performing Organization Address City/[facility] Co de Phone Number [facility] [address] [place] [address] * (ABNORMAL) IMMUNODEFICIENCY PANEL (08/11/2019 7:19 EST) Pathologist [facility] % CD3 68 62 - 87 % 08/12/2019 16:47 [facility] % CD4 29(L) 35 - 63 % 08/12/2019 16:47 [facility] % CD8 38(H) 10 - 35 % 08/12/2019 16:47 [facility] Absolute CD4 836 329-1,427 cells/uL 08/12/2019 16:47 EST [facility] Blood VENOUS BLOOD / Unknown 08/11/2019 7:19 EST 08/11/2019 15:15 EST Provider Unknown IMMUNOLOGY AND SEROL OGY ORDERABLES Performing Organization Address City/[facility]/ZIP Co de Phone Number [facility] [address] [place] [address] documented in this encounter Visit Diagnoses Not on filedocumented in this encounter Care Teams Behavioral Consultant Relationship Specialty Start Date End Date Unknown, Provider, PCP - General 02/24/19 03/01/20 None, Provider PCP - General 03/02/20 03/28/21 Sabrina Jerome, SOM [address] [place] [id number] PCP - General 03/29/21 documented as of this encounter
--- OUTSIDE RECORDS SUMMARY | 2024-05-05 13:59 | XMS_ITS | Encounter Summary ---
Author Organization [facility] Address [address] [place] [address] Care Team Providers Care Breeder Hen Service Technician Name Role Phone Hanane Pollock NP Primary Care Provider [phone] Reason for Visit * Reason Comments Other Encounter Details Date Type Department Care Team (Late st Contact Info) Description 02/04/2017 Refill [facility] Infectious Disease [address] [phone] Juli Franz MD Other Social History Tobacco [...] on filedocumented in this encounter Care Teams Breeder Hen Service Technician Relationship Specialty Start Date End Date Hanane Pollock NP [facility] [address] [place], [place] [id number] PCP - General 01/30/09 02/23/19 documented as of this encounter
--- OUTSIDE RECORDS SUMMARY | 2024-05-05 14:00 | XMS_ITS | Encounter Summary ---
Author Organization [facility] Address [address] [place] [address] Care Team Providers Care Family And Divorce Legal Assistant Name Role Phone Hanane Pollock NP Primary Care Provider [phone] Reason for Visit * Reason Comments Follow-up Encounter Details Date Type Department Care Team (Latest Contact Info) Description 05/08/2011 Documentation Visit [facility] Infectious Disease - [facility] [address] [place] [address] Juli Franz MD AIDS (acquired immune deficiency syndrome) (CMS-HCC); Chronic active viral hepatitis B (CMS-HCC) (HCC-CMS); Chronic hepatitis C without mention of hepatic coma; Tobacco abuse; Lung nodules Social History Tobacco Use Types Packs/Day Years Used Date Smoking Tobacco: Never Assessed Sex and Gender Information Value Date Recorded [...] 78.5 kg (173 lb 1 oz) 05/08/2011 181 EDT Height - - Body Mass Index 24.83 05/14/2010 1415 EDT documented in this encounter Progress Notes * Lavonne Ng - 05/09/2011 0825 EDT Faxed note to Hanane Pollock. Faxed lab orders to [facility]. * Juli Franz MD - 05/08/2011 3302 EDT [facility] PROGRESS/FOLLOWUP NOTE - 05/08/2011 Last seen: 12/26/2010 [...] the disk of the films sent to [facility] and had them loaded in our system and reviewed them in person with radiology.Guanakito comes in today to discuss further evaluation for these lung lesions. He notes that the increased coughand sputum production have resolved. He denies SOB [...] mold in the basement of the house. Chikis worked with a friend to remove the [...] He had some faint rales in right upperlung field posteriorly, otherwise clear. Cardiac exam reveals a regular rhythm. Abdomen: Bowel sounds are present, soft, nontender, no hepatosplenomegaly or masses appreciated. Extremities: He has noedema. He has chronic changes in his nails which are stable. No joint abnormalities. Reflexes 2+ DIAGNOSTIC DATA: Laboratory studies were done 05/03/2011. His white count was 9.04, hemoglobin 16.9, platelet count 198,000. Differential really unremarkable. His chemistries: His creatinine was 1.2.His ALT was elevated at 67 with an AST of 23. His CD4 count was 795 and 27% which was stable, and his viral load was just undetectable. CK 272. Radiology was reviewed in person with the radiologist at [facility]. Pt had rib films in 11/2010 which included a CXR which demonstrated a density in the right apex. He had no old CXRs but he did have a right shoulder film in 2004 which does include the [...] has had cryptococcal meningitis. He has done wellon his present antiretroviral therapy. I think he has good adherence. He has tolerated the meds well. I think he has had good adherence. His [...] that has not been helpful with smoking cessation for him. 3. Depression. Seems to be controlled [...] been treated for his hep C. He eleni ongoing therapy for his hep B, and [...] Procedure Name Priority Date/Time Associated Diagnosis Comments CT GUIDE BIOPSY/ASPIR/INJECT 05/23/2011 11:54 EST documented in this encounter Results * CT GUIDE BIOPSY/ASPIR/INJECT (05/23/2011 11:54 EST) Anatomical Region Laterality Modality Other 05/23/2011 11:5 4 EST 05/23/2011 15:35 EST Narrative 05/23/2011 15:35 EST History: Hepatitis B, hepatitis C, HIV, and recent identification of right upper lobe nodule. Technique and Findings: Written consent was obtained. The patient was prepped and draped in sterile fashion. 1% lidocaine was used for local analgesia. Conscious sedation was administered with the monitoring of the patient's heart rate, blood pressure, respiratory rate, and oxygen saturation. Patient was positioned prone in the CT scanner. A suitable puncture site was identified and a 19-gauge coaxial needle was directed into the nodule in the right upper lobe. Multiple fine-needle aspirates were obtained and analyzed by cytopathology service present for the biopsy. Samples were submitted for cytopathology evaluation as well as culture. Finally, all needles were removed and hemostasis was achieved puncture site with sterile bandage. A small pneumothorax was present at the end of the biopsy. The patient was asymptomatic. Impression: Successful CT-guided fine-needle aspirate of right upper lobe nodule as described. A small asymptomatic pneumothorax resulting. Procedure Note 05/23/2011 History: Hepatitis B, hepatitis C, HIV, and recent identification of right upper lobe nodule. Technique and Findings: Written consent was obtained. The patient was prepped and draped in sterile fashion. 1% lidocaine was used for local analgesia. Conscious sedation was administered with the monitoring of the patient's heart rate, blood pressure, respiratory rate, and oxygen saturation. Patient was positioned prone in the CT scanner. A suitable puncture site was identified and a 19-gauge coaxial needle was directed into the nodule in the right upper lobe. Multiple fine-needle aspirates were obtained and analyzed by cytopathology service present for the biopsy. Samples were submitted for cytopathology evaluation as well as culture. Finally, all needles were removed and hemostasis was achieved puncture site with sterile bandage. A small pneumothorax was present at the end of the biopsy. The patient was asymptomatic. Impression: Successful CT-guided fine-needle aspirate of right upper lobe nodule as described. A small asymptomatic pneumothorax resulting. Juli Franz MD IMG CT ORDERABLES documented in this encounter Visit Diagnoses Diagnosis AIDS (acquired immune deficiency syndrome) (HCC-CMS) Human immunodeficiency virus [HIV] disease Chronic active viral hepatitis B (HCC-CMS) Viral hepatitis B without mention of hepatic coma, chronic, without mention of hepatitis delta Chronic hepatitis C without mention of hepatic coma Tobacco abuse Tobacco use disorder Lung nodules Other nonspecific abnormal finding of lung field documented in this encounter Care Teams Family And Divorce Legal Assistant Relationship Specialty Start Date End Date Hanane Pollock, SOM [facility] [address] [place] [address] PCP - General 01/30/09 02/23/19 documented as of this encounter
--- OUTSIDE RECORDS SUMMARY | 2024-05-05 14:00 | XMS_ITS | Encounter Summary ---
Author Organization [facility] Address [address] [place] [address] Care Team Providers Care Alternative Medicine Practitioner Name Role Phone Hanane Pollock NP Primary Care Provider [phone] Reason for Visit * Reason Comments Follow-up Encounter Details Date Type Department Care Team (Latest Contact Info) Description 03/03/2013 9:45 EDT Office Visit [facility] Infectious Disease [address] [address] Juli Franz MD Acquired immunodeficiency syndrome (CMS-HCC) (Primary Dx); Chronic active type B viral hepatitis (CMS-HCC) (HCC-CMS); Chronic hepatitis C without mention of hepatic coma; Tobacco dependence syndrome Social History Tobacco Use Types Packs/Day Years Used Date Smoking Tobacco: Every Day Cigarettes Tobacco Cessation:Ready to Q uit: No; Counseling Given: Yes Alcohol Use Standard Drinks/Week Comments Yes 0 (1 standard drink = 0.6 oz pur [...] EST documented in this encounter Progress Notes * Juli Franz MD - 03/03/2013 1308 EDT [facility] FOLLOWUP NOTE DOS 03/03/2013 Last seen: 10/28/2012 SUBJECTIVE: Guanakito presents for reevaluation of his HIV disease and his chronic hepatitis B and C. Since he was last seen he has been feeling fairly well. He had a tooth infection last week and was seen by Hanane at [place] and treated with clindamycin and narcotic analgesics. [...] after 03/14. He has tolerated the meds well.His viral load has been detectable, but remains low although the most recent HIV PCR result is still pending. His CD4 count is stable to improved. I have been concerned that his Cr has gone up a bit.His phosphorus however is also up. As his present medications are not only treating his HIV but arealso treating his chronic hepatitis B I think that we will need to try to continue him on his tenofovir. We will need to watch his creatinine closely. We discussed the possibility of changing his 3TCtoFTC but he would like to continue the Epivir. I called [facility] in [facility] [place] and they reported that they would be able to get him the EPIVIR for tomorrow so I called in an RX for a 30 day supply. If his HIV PCR is stable would continue his present regimen and would [...] his last liver biopsy it was consistent withtreated hep B, and there really was no [...] change may need repeat CT of thechest. 7. HAs - resolved documented in this encounter Plan of Treatment Not on file documented as of this encounter Visit Diagnoses Diagnosis Acquired immunodeficiency syndrome (HCC-CMS)- Primary Human immunodeficiency virus [HIV] disease Chronic active type B viral hepatitis (HCC-CMS) Viral hepatitis B without mention of hepatic coma, chronic, without mention of hepatitis delta Chronic hepatitis C without mention of hepatic coma Tobacco dependence syndrome Tobacco use disorder documented in this encounter Care Teams Alternative Medicine Practitioner Relationship Specialty Start Date End Date Hanane Pollock NP [facility] [address] [place] [address] PCP - General 01/30/09 02/23/19 documented as of this encounter
--- OUTSIDE RECORDS SUMMARY | 2024-05-05 14:00 | XMS_ITS | Encounter Summary ---
Author Organization [facility] Address [address] [place] [address] Care Team Providers Care Operations Technician Name Role Phone Hanane Pollock NP Primary Care Provider [phone] Encounter Details Date Type Department Care Team (Late st Contact Info) Description 11/03/2013 Orders Only [facility] Infectious Disease - [facility] [address] [place] [address] Juli Franz MD Social History Tobacco Use Types Packs/Day Years Used Date Smoking Tobacco: Every Day Cigarettes Alcohol Use Standard Drinks/Week Comments Yes 0.8 (1 standard drink = 0.6 oz [...] Comments COMPLETE BLOOD COUNT AND DIFFERENTIAL Routine 11/01/2013 11:56 EDT PHOSPHORUS Routine 11/01/2013 11:56 EDT CK Routine 11/01/2013 11:56 EDT COMPREHENSIVE METABOLIC PANEL (CMP) Routine 11/01/2013 11:56 EDT documented in this encounter Results * PHOSPHORUS (11/01/2013 11:56 EDT) Phosphorus, External [facility] Comment:Ordered in error. Blood specimen (specimen) 11/01/2013 11:56 EDT Ingris Wilson MD CHEMISTRY & BLOOD GA S ORDERABLES Performing Organization Address City/[facility]/ZIP Co de Phone Number [facility] * HEMAGRAM AND DIFFERENTIAL (11/01/2013 11:56 EDT) WBC, [facility] Comment:Ordered in error. RBC, [facility] Comment:Ordered in error. Hemoglobin, [facility] Comment:Ordered in error. HCT, [facility] Comment:Ordered in error. MCV, [facility] Comment:Ordered in error. MCH, [facility] Comment:Ordered in error. MCHC, [facility] Comment:Ordered in error. PLT, [facility] Comment:Ordered in error. RDW-CV, [facility] Comment:Ordered in error. Neutrophils, [facility] Comment:Ordered in error. Lymphocytes, [facility] Comment:Ordered in error. Monocytes, [facility] Comment:Ordered in error. Eosinophils, [facility] Comment:Ordered in error. Basophils, [facility] Comment:Ordered in error. ABS Neutrophils, [facility] Comment:Ordered in error. ABS Lymphs, [facility] Comment:Ordered in error. ABS Monocytes, [facility] Comment:Ordered in error. ABS Eosinophils, [facility] Comment:Ordered in error. ABS Basophils, [facility] Comment:Ordered in error. Blood specimen (specimen) 11/01/2013 11:56 EDT Ingris Wilson MD PACKAGES & DNA PROBE ORDERABLES [facility] * COMPREHENSIVE METABOLIC PANEL (CMP) (11/01/2013 11:56 EDT) GFR, Calculated, [facility] Comment:Ordered in error. Glucose, Serum, [facility] Comment:Ordered in error. Albumin, [facility] Comment:Ordered in error. Total Alkaline Phosphatase, [facility] Comment:Ordered in error. ALT, [facility] Comment:Ordered in error. AST, [facility] Comment:Ordered in error. BUN, [facility] Comment:Ordered in error. Calculated Calcium, [facility] Comment:Ordered in error. Calcium, [facility] Comment:Ordered in error. Chloride, [facility] Comment:Ordered in error. CO2, [facility] Comment:Ordered in error. Creatinine, [facility] Comment:Ordered in error. Fasting?, [facility] Comment:Ordered in error. Potassium, [facility] Comment:Ordered in error. Sodium, [facility] Comment:Ordered in error. Total Protein, [facility] Comment:Ordered in error. Bilirubin, Total, [facility] Comment:Ordered in error. Blood specimen (specimen) 11/01/2013 11:56 EDT Ingris Wilson MD CHEMISTRY & BLOOD GA S ORDERABLES Performing Organization Address [facility] Co de Phone Number [facility] * CK (11/01/2013 11:56 EDT) CK, [facility] Comment:Ordered in error. Blood specimen (specimen) 11/01/2013 11:56 EDT Ingris Wilson MD CHEMISTRY & BLOOD GA S ORDERABLES Performing Organization Address City/[facility] Co de Phone Number [facility] documented in this encounter Visit Diagnoses Not on filedocumented in this encounter Care Teams Operations Technician Relationship Specialty Start Date End Date Hanane Pollock NP [facility] [address] [place] [address] PCP - General 01/30/09 02/23/19 documented as of this encounter
--- OUTSIDE RECORDS SUMMARY | 2024-05-05 14:00 | XMS_ITS | Encounter Summary ---
Author Organization [facility] Address [address] [place] [address] Care Team Providers Care Bond Runner Name Role Phone Hanane Pollock NP Primary Care Provider Encounter Details Date Type Department Care Team (Late st Contact Info) Description 02/12/2012 Orders Only [facility] Infectious Disease - [address] [address] Juli Franz MD AIDS (acquired immune deficiency syndrome) ([facility]) (Primary Dx) Social History Tobacco Use Types Packs/Day Years Used Date Smoking Tobacco: Every Day Cigarettes Alcohol Use Standard Drinks/Week Comments Yes 0 (1 standard drink = 0.6 oz pur e alcohol) socially Sex and Gender Information Value Date Recorded Sex Assigned at Not on file Gender Identity Not on file Sexual Orientation Not on file documented as of this encounter Ordered Prescriptions Prescription Sig Dispensed Refills Start Date End Da te atazanavir (REYATAZ) 300 mg capsuleIndications:AIDS (acquired immune deficiency syndrome) ([facility]) Take 1 Cap by mouth daily. 30 Cap 3 02/12/2012 06/26/2012 ritonavir (NORVIR) 100 mg tabletIndications:AIDS (acquired immune deficiency syndrome) ([facility]) Take 1 Tab by mouth every 24 hours. 30 Tab 3 02/12/2012 06/26/2012 lamivudine (EPIVIR) 300 mg tabletIndications:AIDS (acquired immune deficiency syndrome) ([facility]) Take 1 Tab by mouth daily. 30 Tab 3 02/12/2012 06/26/2012 tenofovir (VIREAD) 300 mg tabletIndications:AIDS (acquired immune deficiency syndrome) ([facility]) Take 1 Tab by mouth daily. 30 Tab 3 02/12/2012 06/26/2012 Raltegravir (ISENTRESS) 400 mg TabIndications:AIDS (acquired immune deficiency syndrome) ([facility]) Take 1 Tab by mouth 2 times daily. 60 Tab 3 02/12/2012 06/26/2012 documented in this encounter Plan of Treatment Not on file documented as of this encounter Visit Diagnoses Diagnosis AIDS (acquired immune deficiency syndrome) ([facility])- Primary Human immunodeficiency virus [HIV] disease documented in this encounter Discontinued Medications Medication Sig Discontinue Reason Start Date End Da te Raltegravir (ISENTRESS) 400 mg Tab Take 1 Tab by mouth 2 times daily. Reorder 10/02/2011 02/12/2012 tenofovir (VIREAD) 300 mg tablet Take 1 Tab by mouth daily. Reorder 10/02/2011 02/12/2012 lamivudine (EPIVIR) 300 mg tablet Take 1 Tab by mouth daily. Reorder 10/02/2011 02/12/2012 ritonavir (NORVIR) 100 mg tablet Take 1 Tab by mouth every 24 hours. Reorder 10/02/2011 02/12/2012 atazanavir (REYATAZ) 300 mg capsule Take 1 Cap by mouth daily. Reorder 10/02/2011 02/12/2012 documented as of this encounter Care Teams Bond Runner Relationship Specialty Start Date End Date Hanane Pollock NP [facility] [address] [place] [address] PCP - General 01/30/09 02/23/19 documented as of this encounter
--- OUTSIDE RECORDS SUMMARY | 2024-05-05 14:00 | XMS_ITS | Encounter Summary ---
Author Organization [facility] Address [address] [place] [address] Care Team Providers Care Semiconductor Dies Loader Name Role Phone Hanane Pollock NP Primary Care Provider [phone] Encounter Details Date Type Department Care Team (Late st Contact Info) Description 05/18/2008 Before PRISM Converted Visit (Maple) [facility] - Maple conversion [address] [place] [address] Juli Franz MD Social History Tobacco Use Types Packs/Day Years Used Date Smoking Tobacco: Never Assessed Sex and Gender Information Value Date Recorded Sex Assigned at Not on file Gender Identity Not on file Sexual Orientation Not on file documented as of this encounter Progress Notes * Juli Franz MD - 02/04/2009 1436 EDT DIVISION OF INFECTIOUS DISEASE - [facility] PROGRESS/FOLLOWUP NOTE - 05/18/2008 DONNELL Calabrese presents for reevaluation of his HIV disease. He was last seen by me in the comprehensive care clinic on January 27, 2008. Since he was [...] at that time. Also, maybe a bit ofswelling in the lymph nodes in his axilla [...] significant. He did see ophthalmology and said thathis ocular findings were stable and he really has not had consistent blurriness in terms of his vision. He says he does not feel depressed. He has not had any oral lesions, dysphagia or odynophagia. He does say that he has a sense that he is not taking as deep breaths and does say that he does haveworsening shortness of breath with exertion, but no [...] or vomiting.l He has not had any diarrheaand is moving his bowels regularly. No genitourinary complaints. No new rashes. Again, the numbnessin the arms and this burning sensation is really quite positional and occurs only with raising his arms. He denies any problems with neck pain and he has some neuropathy symptoms in his feet mostly apinching sensation in his feet. He says he [...] kg. Blood pressure 120/70. His heart rate was 84 and regular. He has patchy alopecia of the scalp, which seems a bit worse again. He has an erythematous area in the right occipital area just at the hairline with some small papules and some erythema, but the area is nontender and there are no vesicles or pustules. His pupils are equal, scleraenonicteric, conjunctivae pink. He has no oral lesions. No cervical or supraclavicular lymphadenopathy. He has no axillary lymphadenopathy. His lungs are clear to auscultation and percussion. His neckis supple. His skin is significant for small pink macules on his posterior trunk, all about a centim eter in diameter, some with fine central clearing [...] His spleen is not enlarged by palpation. Hisliver is not enlarged by palpation. Extremities: No edema. Neurologic examination: Nonfocal except his reflexes are decreased bilaterally and present only with enhancement maneuver. LABORATORY DATA He had an HLA-[id number] screen, which was negative; no HLA-B5701 was identified. He had chemistries; his transaminases were normal. Really, his chemistries were only [...] to say I do not have a realexplanation, although he has had some vague symptoms to suggest he was having some acute illness recently and I guess that could account for the blip in his viral load. I think we are going to need to keep a close eye on this. We had kind of thought about changing his medications and that is why wedid the HLA-[id number]. We wnated to get him off the [...] will need to review his old antiretroviral therapyin preparation for this. He really has had limited regimens in the past and so I do think he will have a lot of options. When we made this regimen for him in the past he had fewer options available, b ut now with raltegravir and some of the newer protease inhibitors I think he will have more options. He did not tolerate the boosted Crixivan regimen in the past, but he has really not been on other protease inhibitors, but I suspect there will be a bit of trial and error especially in view of his underlying chronic hepatitis B and hepatitis C. He is at high risk for a flare of his liver with newdrugs. 2. Depression. Under good control on his Wellbutrin. 3. Tobacco use. He does seem motivated to try to quit. He does not want to try Chantix again. He has used the patch in the past, but it sounds like on further questioning he may benefit more from lozenges or the gum and we will look into see if we can get this covered for him. 4. Alcohol use. He knows he needs to limit this and it sounds like he is drinking less, although has not discontinued this completely. 5. Chronic hepatitis B [...] to be adding anything for this at thepresent time. Signed by Juli Franz MD 06/08/2008 15:51 Juli Franz MD - Juli Franz MD - LUIS ARMANDO Job ID: [id number] Doc ID: [id number] cc: [facility] Hanane Pollock NP *[facility] documented in this encounter Plan of Treatment Not on file documented as of this encounter Visit Diagnoses Not on filedocumented in this encounter Care Teams Semiconductor Dies Loader Relationship Specialty Start Date End Date Hanane Pollock NP [facility] [address] [place] [address] PCP - General 01/30/09 02/23/19 documented as of this encounter
--- OUTSIDE RECORDS SUMMARY | 2024-05-05 14:00 | XMS_ITS | Encounter Summary ---
Author Organization [facility] Address [address] [place] [address] Care Team Providers Care Maintenance Shop Manager Name Role Phone Hanane Pollock NP Primary Care Provider [phone] Encounter Details Date Type Department Care Team (Late st Contact Info) Description 08/09/2013 Orders Only [facility] Infectious Disease - [address] [address] Juli Franz MD Social History Tobacco Use [...] on filedocumented in this encounter Care Teams Maintenance Shop Manager Relationship Specialty Start Date End Date Hanane Pollock NP [facility] [place] [address] [place] [address] PCP - General 01/30/09 02/23/19 documented as of this encounter
--- OUTSIDE RECORDS SUMMARY | 2024-05-05 14:00 | XMS_ITS | Encounter Summary ---
Author Organization [facility] Address [address] [place] [address] Care Team Providers Care Emergency Department Coordinator Name Role Phone Hanane Pollock NP Primary Care Provider [phone] Encounter Details Date Type Department Care Team (Latest Contact Info) Description 05/15/2010 11:06 EDT - 05/15/2010 22:17 EDT Hospital Encounter [facility] Cardiovascular Unit [address] [place] [address] Juli Franz MD Discharge Disposition: Home or Self Care Social [...] EDT documented in this encounter Discharge Instructions * Discharge Instructions* Jocelyn Cardenas RN - 05/15/2010 13:32 EDT Procedure Site - Liver Physician Performing Procedure - Michael Miranda RADIOLOGY PATIENT EDUCATION INSTRUCTIONS FOLLOWING LIVER BIOPSY PROCEDURE ?? Return home and rest quietly for the remainder of the day. ?? DO NOT drive or make legal decisions today as you may have received sedation medication for yourprocedure. ?? Have a responsible adult drive you and remain with you the rest of the day if possible. Depending on the time of your procedure, your activity will be restricted thus making it difficult to prepare meals etc. You may have also received medication that makes you groggy or sleepy. ?? You may resume your normal diet after the procedure. Avoid alcoholic beverages and depressant drugs for 24 hours. ?? DO NOT take aspirin-containing products, ibuprofen, vitamin E, or blood thinning products for 24hours after the procedure. You may take Tylenol [...] for any increase in drainage. Keep the Band-Aid or dressing dry for 24 hours. Replace the Band-Aid if necessary. If you notice brisk bleeding, apply pressure for 10 minutes and slowly release the pressure to see if the bleeding has stopped. If the bleeding does not stop, go to your Physician or the nearest Emergency Room. ?? The results of your procedure will go to the Physician who ordered the procedure. It may take 2-5 days for procedure results to come back. ?? IF YOU HAVE ANY QUESTIONS OR CONCERNS REGARDING THE PROCEDURE, PLEASE CALL THE INTERVENTIONAL RADIOLOGY CLINIC AT . SOMEONE IS AVAILABLE TO TAKE YOUR CALL 24 HOURS A DAY. documented in this encounter Medications at Time of Discharge Medication Sig Dispensed Refills Start Date End Date atazanavir (REYATAZ) 300 mg capsule Take 300 mg by mouth daily. 06/14/2011 buPROPion (WELLBUTRIN SR) 100 mg SR tablet Take 100 mg by mouth daily. 06/14/2011 lamivudine (EPIVIR) 300 mg tablet Take 300 mg by mouth daily. 06/14/2011 Raltegravir (ISENTRESS) 400 mg Tab Take 400 mg by mouth 2 times daily. 06/14/2011 ritonavir (NORVIR) 100 mg capsule Take 100 mg by mouth daily. 06/14/2011 tenofovir (VIREAD) 300 mg tablet Take 300 mg by mouth daily. 06/14/2011 documented as of this encounter Discharge Disposition Disposition Code Departure Means Destination Home or Self Care documented in this encounter Progress Notes * Reanna Washington RN - 05/15/2010 1420 EDT [...] Discharged to home with Fernando via wheelchair. * Jocelyn Cardenas RN - 05/15/2010 1323 EDT Patient greeted in CVU. Id verified verbally and via armband. Allergy bracelet on wrist. IV patent.Patient brought to [place] [address] for U/S liver biopsy. Consent signed. Patient moved himself onto table.VS obtained and stable. Conscious sedation started. Prepped in usual fashion. Ruiz moment done prior to start of procedure. O2 titration and conscious sedation throughout procedure. Patient received 3.5mg of Versad and 125mcg of Fentanyl during procedure. Patient tolerated procedure well. VS stable throughout procedure. Biopsy samples obtained. Report called to Valdez FREEMAN in CVU. * Kiara Gregorio RN - 05/15/2010 1224 EDT Pt prepped and awaiting procedure. Partner at bedside. Pain 0/10 * Reanna Washington RN - 05/14/2010 1419 EDT Spoke with patients partner, Fernando, regarding procedure scheduled for 05/15/10. Patient not available to speak with at time of call. Instructed Fernando that patient was to arrive in registration at 1145, that patient must be NPO after 0500 but he may have a fat free light breakfast prior to 0500, may take routine medications with a sip of water, and to bring a current medication list with him for review prior to procedure. Instructed that patient must have a fuel truck driver with him due to sedation he willreceive for procedure and Fernando stated that he will be the fuel truck driver. Gave phone number for CVU with any questions patient may have. documented in this encounter Procedure Notes * Morales Miranda MD - 05/15/2010 1343 EDT INTERVENTIONAL RADIOLOGY PROCEDURE NOTE Radiologist: Casimiro [...] Bridger Miranda MD Interventional Radiology Fellow Pager #[phone] documented in this encounter OR Notes * Anesthesia Procedure Notes - Inpatient, Physician - 05/15/2010 0000 EDT documented in this encounter Miscellaneous Notes * Scanned Note-Null - Inpatient, Physician - 05/15/2010 0000 EDT * Scanned Note-Null - Inpatient, Physician - 05/15/2010 0000 EDT * Scanned Note-Null - Inpatient, Physician - 05/15/2010 0000 EDT * Scanned Note-Null - Inpatient, Physician - 05/15/2010 0000 EDT * Scanned Note-Null - Inpatient, Physician - 05/15/2010 0000 EDT * Scanned Note-Null - Inpatient, Physician - 05/15/2010 0000 EDT documented in this encounter Plan of Treatment Not on file documented as of this encounter Procedures Procedure Name Priority Date/Time Associated Diagnosis Comments PROTIME STAT 05/15/2010 12:00 EDT COMPLETE BLOOD COUNT STAT 05/15/2010 12:00 EDT documented in this encounter Results * (ABNORMAL) HEMAGRAM (05/15/2010 12:00 EDT) WBC 7.64 4.0 - 10.4 K/cmm [facility] RBC 4.43 4.36 - 5.78 M/cmm [facility] Hemoglobin 15.6 13.8 - 17.3 gm/dl [facility] HCT 44.3 39.5 - 50.2 % [facility] MCV 100(H) 81 - [address] [facility] MCH 35.1(H) 27.6 - 33.[address] [facility] MCHC 35.1 32.8 - 36.4 gm/dl [facility] PLT 207 141 - 320 K/cmm [facility] RDW-CV 13.6 11.8 - 14.1 % [facility] Blood specimen (specimen) 05/15/2010 12:00 EDT 05/15/2010 12:18 EDT Frank Simmons PA-C HEMATOLOGY & PF4 ORDERABLES Performing Organization Address [facility] Co de Phone Number [facility] [address] [place] [address] * PROTIME (05/15/2010 12:00 EDT) Pro Time 12.5 9.9 - 13.1 secs [facility] I.N.R. 1.1 0.9 - 1.1 Ratio [facility] Comment: ??Moderate Intensity Coumadin INR = 2.0-3.0 Adjustments in anticoagulant therapy dose should be based upon the INR and NOT the Pro Time. ?? Blood specimen (specimen) 05/15/2010 12:00 EDT 05/15/2010 12:18 EDT Frank Simmons PA-C HEMATOLOGY & PF4 ORDERABLES Performing Organization Address [facility] Co de Phone Number [facility] [address] [place] [address] documented in this encounter Visit Diagnoses Not on filedocumented in this encounter Administered Medications Inactive Administered Medications - up to 3 most recent administrations Medication Order MAR Action Action Date Dose Rate Site fentanyl citrate (PF) 50 mcg/mL injection 25-250 mcg 25-250 mcg, intravenous, ONCE PRN, 1 dose, Starting on Fri05/15/10 at 1304, Until Fri05/15/10 at 1337, Pain, radiology, Routine, Intraprocedure Given 05/15/2010 13:37 EDT 125 mcg midazolam (VERSED) injection 0.5-10 mg 0.5-10 mg, intravenous, ONCE PRN, 1 dose, Starting on Fri05/15/10 at 1304, Until Fri05/15/10 at 1338, Sedation, Routine, Intraprocedure Given 05/15/2010 13:38 EDT 3.5 mg sodium chloride 0.9 % (NS) infusion 50 mL/hr, intravenous, CONTINUOUS, Starting on Fri05/15/10 at 1200, Until Fri05/16/10 at 0017, Routine, Preprocedure New Bag 05/15/2010 12:00 EDT 50 mL/hr 50 mL/hr documented in this encounter Active and Recently Administered Medications Times are shown in EDT. Continuous Medication Order 05/13/2010 05/14/2010 05/15/2010 sodium chloride 0.9 % (NS) infusion (CANCELED) 50 mL/hr, intravenous, CONTINUOUS, Starting on Fri05/15/10 at 1200, Until Fri05/16/10 at 0017, Routine, Preprocedure 1200 (New Bag - Prov ider: Kiara Gregorio RN) PRN Medication Order 05/13/2010 05/14/2010 05/15/2010 fentanyl citrate (PF) 50 mcg/mL injection 25-250 mcg (COMPLETED) 25-250 mcg, intravenous, ONCE PRN, 1 dose, Starting on Fri05/15/10 at 1304, Until Fri05/15/10 at 1337, Pain, radiology, Routine, Intraprocedure 1337 (Given - Provid er: Jocelyn Cardenas RN - Comment: given in 25-50mcg increments throughout IR Procedure) midazolam (VERSED) injection 0.5-10 mg (COMPLETED) 0.5-10 mg, intravenous, ONCE PRN, 1 dose, Starting on Fri05/15/10 at 1304, Until Fri05/15/10 at 1338, Sedation, Routine, Intraprocedure 1338 (Given - Provid er: Jocelyn Cardenas RN - Comment: given in 0.5-1mg increments throughout IR Procedure) documented in this encounter Orders Nursing Count Last Ordered Date First Orde red Date BEDREST 1 05/15/2010 INSERT PERIPHERAL IV 1 05/15/2010 NOTIFY PHYSICIAN (SPECIFY) 1 05/15/2010 OXYGEN THERAPY 1 05/15/2010 REMOVE IV 1 05/15/2010 Admission Count Last Ordered Date First Orde red Date ADMIT TO OUTPATIENT 1 05/15/2010 NOTIFY PPS OF DISCHARGE COMPLETE 1 05/15/20 10 Discharge Count Last Ordered Date First Orde red Date DISCHARGE PATIENT 1 05/15/2010 documented in this encounter Care Teams Emergency Department Coordinator Relationship Specialty Start Date End Date Hanane Pollock, [facility] [address] [place] [address] PCP - General 01/30/09 02/23/19 documented as of this encounter
--- OUTSIDE RECORDS SUMMARY | 2024-05-05 14:00 | XMS_ITS | Encounter Summary ---
Author Organization [facility] Address [address] [place] [address] Care Team Providers Care Clipper Automatic Name Role Phone Unavailable Primary Care Provider Unavailabl e Encounter Details Date Type Department Care Team (Late st Contact Info) Description 09/12/2008 Before PRISM Converted Visit (Maple) [facility] - Maple conversion [address] [place] [address] Guevara Haney MD [address] [place] [address] Social History Tobacco Use Types Packs/Day Years Used Date Smoking Tobacco: Never Assessed Sex and Gender Information Value Date Recorded Sex Assigned at Not on file Gender Identity Not on file Sexual Orientation Not on file documented as of this encounter Plan of Treatment Not on file documented as of this encounter Procedures Procedure Name Priority Date/Time Associated Diagnosis Comments SURGICAL PATHOLOGY Routine 09/12/2008 0:00 EST documented in this encounter Results * SURGICAL PATHOLOGY (09/12/2008 0:00 EST) Pathology Report: SURGICAL PATHOLOGY REPORT ? Reports generated via electronic interface contain original data; ? however they are lacking the format of the original report. ? Caution should be taken when reading/interpreti ng unformatted reports. ? Name: ? SNIDE, KALEB ? Accession #: ? [id number] ? : ? 1970 (Age: 38) ??M ? Collect Date: ? 09/12/2008 ? Location: ? [facility] ? Receive Date: ? 09/12/2008 ? Provider: GUEVARA HANEY MD ? Copy to: [facility]IAISON ? NEW B RAMUNDO MD ? Final Pathologic Diagnosis: ? A. ??Colon, sigmoid, 30 cm, biopsy: ? 1. ??Tiny leiomyoma. ? B. ??Rectum, biopsy: ? 1. ??Hyperplastic polyp. ? Document reviewed and electronically signed by: ? Nelsy Epperson MD ? Report ??Date: 09/14/2008 15:05 ? By the signature above, the attending physician certifies that he/she has ? personally conducted a gross and/or microscopic examination of the described ? specimens and rendered or confirmed the above diagnosis. ? Specimen(s) Received: ? A. ?Sigmoid 30 cm bx ? B. ? Rectal bx ? Clinical History: ? Rectal bleeding ? Gross Description: ? Received in Mariettae's fixative labelled Snide and sigmoid 30 cm bx. ?? The specimen consists of a single 0.2 x 0.2 x 0.2 cm pink-lazcano irregular soft ? tissue, submitted in toto in (A). ? Received in Hollande's fixative labelled Snide and rectal bx. ??The specimen consists of two pink-lazcano, irregular soft tissues, each 0.3 x 0.2 x 0.1 cm, ? submitted in toto in (B). ??(L. Patrick)/mpl ? End of Report ? BRAD [facility] 09/12/2008 09/12/2008 9:0 7 EST Guevara Haney MD PATHOLOGY ORDERABLE S Performing Organization Address City/State/[facility] Co de Phone Number BRAD MANJ[facility] [address] [place] [address] documented in this encounter Visit Diagnoses Not on filedocumented in this encounter
--- OUTSIDE RECORDS SUMMARY | 2024-05-05 14:00 | XMS_ITS | Encounter Summary ---
Author Organization [facility] Address [address] [place] [address] Care Team Providers Care Table And Desk Finisher Name Role Phone Hanane Pollock NP Primary Care Provider [phone] Encounter Details Date Type Department Care Team (Late st Contact Info) Description 03/22/2013 Orders Only [facility] Infectious Disease - [address] [id number] Juli Franz MD Social History Tobacco Use [...] on filedocumented in this encounter Care Teams Table And Desk Finisher Relationship Specialty Start Date End Date Hanane Pollock NP [facility] [address] [place] [address] PCP - General 01/30/09 02/23/19 documented as of this encounter
--- OUTSIDE RECORDS SUMMARY | 2024-05-05 14:00 | XMS_ITS | Encounter Summary ---
Author Organization [facility] Address [address] [place] [address] Care Team Providers Care Material Mixer Name Role Phone Hanane Pollock NP Primary Care Provider [phone] Encounter Details Date Type Department Care Team (Late st Contact Info) Description 03/05/2013 Documentation Visit [facility] Infectious Disease - [facility] [address] [place] [address] Juli Franz MD Social History Tobacco Use [...] Progress Notes * Juli Franz MD - 03/05/2013 1636 EDT TC to [facility] lab - HIV PCR result form 02/26 [...] on filedocumented in this encounter Care Teams Material Mixer Relationship Specialty Start Date End Date Hanane Pollock NP [facility] [address] [place] [address] PCP - General 01/30/09 02/23/19 documented as of this encounter
--- OUTSIDE RECORDS SUMMARY | 2024-05-05 14:00 | XMS_ITS | Encounter Summary ---
Author Organization [facility] Address [address] [place] [address] Care Team Providers Care Data Administrator Name Role Phone Hanane Pollock NP Primary Care Provider [phone] Encounter Details Date Type Department Care Team (Late st Contact Info) Description 09/25/2012 Orders Only [facility] Infectious Disease - [address] [address] Juli Franz MD Social History Tobacco Use [...] on filedocumented in this encounter Care Teams Data Administrator Relationship Specialty Start Date End Date Hanane Pollock NP [facility] [address] [place] [address] PCP - General 01/30/09 02/23/19 documented as of this encounter
--- OUTSIDE RECORDS SUMMARY | 2024-05-05 14:00 | XMS_ITS | Encounter Summary ---
Author Organization [facility] Address [address] [place] [address] Care Team Providers Care Speed Runner Name Role Phone Hanane Pollock NP Primary Care Provider [phone] Encounter Details Date Type Department Care Team (Late st Contact Info) Description 11/04/2013 Orders Only [facility] Infectious Disease - [address] [address] Juli Franz MD Social History Tobacco Use [...] Procedure Name Priority Date/Time Associated Diagnosis Comments COMPREHENSIVE METABOLIC PANEL (ONCOLOGY USE ONLY-INC MG) Routine 11/01/2013 11:56 EDT COMPLETE BLOOD COUNT AND DIFFERENTIAL Routine 11/01/2013 11:56 EDT PHOSPHORUS Routine 11/01/2013 11:56 EDT CK Routine 11/01/2013 11:56 EDT COMPREHENSIVE METABOLIC PANEL (CMP) Routine 11/01/2013 11:56 EDT documented in this encounter Results * (ABNORMAL) COMPREHENSIVE METABOLIC PANEL (CMP) (11/01/2013 11:56 EDT) GFR, Calculated, External >=60.00 >=60.00 mL/min/1. 73m2 [facility] Glucose, Serum, External 89 70 - 100 mg/dL [facility] Albumin, External 4.5 3.4 - 5.0 g/dL [facility] Total Alkaline Phosphatase, External 85 46 - 116 U/L [facility] ALT, External 45 12 - 78 U/L [facility] AST, External 19 15 - 37 U/L [facility] BUN, External 16 7 - 18 mg/dL [facility] Comment:Corrected reference ranges 11/04/13 at 1842. Calculated Calcium, External Not given [facility] Calcium, External 9.1 8.5 - 10.1 mg/dL [facility] Chloride, External 103 98 - 107 mmol/L [facility] CO2, External 28.6 21.0 - 32.0 mmol/L [facility] Creatinine, External 1.2 0.8 - 1.3 mg/dL [facility] Fasting?, External Unknown [facility] Potassium, External 4.3 3.5 - 5.1 mmol/L [facility] Sodium, External 140 136 - 145 mmol/L [facility] Total Protein, External 7.4 6.4 - 8.2 g/dL [facility] Bilirubin, Total, External 1.56(A) 0.2 - 1.0 mg/dL [facility] Comment:See scans in PRISM f or further interpretation. Blood specimen (specimen) 11/01/2013 11:56 EDT Juli Franz MD CHEMISTRY & BLOOD GA S ORDERABLES [facility] * PHOSPHORUS (11/01/2013 11:56 EDT) Phosphorus, External 3.0 2.5 - 4.9 mg/dL [facility] Blood specimen (specimen) 11/01/2013 11:56 EDT Juli Franz MD CHEMISTRY & BLOOD GA S ORDERABLES [facility] * (ABNORMAL) HEMAGRAM AND DIFFERENTIAL (11/01/2013 11:56 EDT) WBC, External 8.53 4.4 - 10.8 k/cumm [facility] RBC, External 4.83 4.50 - 6.00 m/cumm [facility] Hemoglobin, External 16.5 13.5 - 17.5 g/dL [facility] HCT, External 47.2 40.0 - 50.0 % [facility] MCV, External 97.7(A) 80 - 95 fL [facility] MCH, External 34.2(A) 27.0 - 33.0 pg [facility] MCHC, External 35.0 32.0 - 36.0 % [facility] PLT, External 213 130 - 400 x1000/uL [facility] RDW-CV, External 13.2 11.8 - 14.1 % [facility] Neutrophils, External 52.6 40 - 74 % [facility] Lymphocytes, External 35.1 19 - 44 % [facility] Monocytes, External 8.2 3.0 - 10.0 % [facility] Eosinophils, External 2.8 1 - 7.0 % [facility] Basophils, External 1.1 0.0 - 2.0 % [facility] ABS Neutrophils, External 4.49 1.2 - 6.7 k/cumm [facility] ABS Lymphs, External 2.99 1.2 - 3.4 k/cumm [facility] ABS Monocytes, External 0.70 0.11 - 0.7 k/cumm [facility] ABS Eosinophils, External 0.24 0 - 0.7 k/cumm [facility] ABS Basophils, External 0.09 0.0 - 0.2 k/cumm [facility] Comment:See scans in PRISM f or further interpretation. Blood specimen (specimen) 11/01/2013 11:56 EDT Juli Franz MD PACKAGES & DNA PROBE ORDERABLES [facility] * CK (11/01/2013 11:56 EDT) CK, External 132 39 - 308 U/L [facility] Blood specimen (specimen) 11/01/2013 11:56 EDT Juli Franz MD CHEMISTRY & BLOOD GA S ORDERABLES Performing Organization Address City/[facility]/ZIP Co de Phone Number [facility] * COMPREHENSIVE METABOLIC PANEL (ONCOLOGY USE ONLY-INC MG: DRAW GREEN TOP) (11/01/2013 11:56 EDT) Calcium, [facility] Comment:Ordered in error. CO2, [facility] Comment:Ordered in error. AST, [facility] Comment:Ordered in error. ALT, [facility] Comment:Ordered in error. Bilirubin, Total, [facility] Comment:Ordered in error. Creatinine, [facility] Comment:Ordered in error. Calculated Calcium, [facility] Comment:Ordered in error. Anion Gap, [facility] Comment:Ordered in error. Total Protein, [facility] Comment:Ordered in error. Potassium, [facility] Comment:Ordered in error. Total Alkaline Phosphatase, [facility] Comment:Ordered in error. Albumin, [facility] Comment:Ordered in error. BUN, [facility] Comment:Ordered in error. GFR, Calculated, [facility] Comment:Ordered in error. Fasting?, [facility] Comment:Ordered in error. Chloride, [facility] Comment:Ordered in error. Glucose, Serum, [facility] Comment:Ordered in error. Sodium, External [facility] Comment:Ordered in error. Magnesium, External [facility] Comment:Ordered in error. Blood specimen (specimen) 11/01/2013 11:56 EDT Juli Franz MD CHEMISTRY & BLOOD GA S ORDERABLES [facility] documented in this encounter Visit Diagnoses Not on filedocumented in this encounter Care Teams Speed Runner Relationship Specialty Start Date End Date Hanane Pollock NP [facility] [address] [place] [address] PCP - General 01/30/09 02/23/19 documented as of this encounter
--- OUTSIDE RECORDS SUMMARY | 2024-05-05 14:00 | XMS_ITS | Encounter Summary ---
Author Organization [facility] Address [address] [place] [address] Care Team Providers Care Guest Services Representative Name Role Phone Hanane Pollock NP Primary Care Provider Encounter Details Date Type Department Care Team (Late st Contact Info) Description 09/24/2012 Orders Only [facility] Infectious Disease - [address] [address] Juli Franz MD Social History Tobacco Use [...] Comments COMPLETE BLOOD COUNT AND DIFFERENTIAL Routine 09/21/2012 9:18 EDT PHOSPHORUS Routine 09/21/2012 9:18 EDT COMPREHENSIVE METABOLIC PANEL (CMP) Routine 09/21/2012 9:18 EDT documented in this encounter Results * (ABNORMAL) COMPREHENSIVE METABOLIC PANEL (CMP) (09/21/2012 9:18 EDT) GFR, Calculated, External >=60.00 mL/min/1 .73m2 [facility] Glucose, Serum, External 89 70 - 110 mg/dL [facility] Albumin, External 4.2 3.4 - 5.0 g/dL [facility] Total Alkaline Phosphatase, External 97 38 - 126 U/L [facility] ALT, External 48 12 - 78 U/L [facility] Comment:Please see scanned r eport in PRISM for futher interpretation AST, External 18 15 - 37 U/L [facility] BUN, External 15 7 - 18 mg/dL [facility] Calculated Calcium, External Not given [facility] Calcium, External 8.8 8.5 - 10.1 mg/dL [facility] Chloride, External 104 98 - 107 mmol/L [facility] CO2, External 26.2 21.0 - 32.0 mmol/L [facility] Creatinine, External 1.0 0.8 - 1.3 mg/dL [facility] Fasting?, External Unknown [facility] Potassium, External 4.3 3.5 - 5.1 mmol/L [facility] Sodium, External 141 136 - 145 mmol/L [facility] Total Protein, External 7.2 6.4 - 8.2 g/dL [facility] Bilirubin, Total, External 1.62(A) 0.2 - 1.0 mg/dL [facility] Blood specimen (specimen) 09/21/2012 9:18 EDT Juli Franz MD CHEMISTRY & BLOOD GA S ORDERABLES [facility] * (ABNORMAL) HEMAGRAM AND DIFFERENTIAL (09/21/2012 9:18 EDT) WBC, External 9.02 4.4 - 10.8 k/cumm [facility] Comment:Please see scanned r eport in PRISM for futher test and interpretation RBC, External 4.95 4.50 - 6.00 m/cumm [facility] Hemoglobin, External 16.9 13.5 - 17.5 gm/dL [facility] HCT, External 48.4 40.0 - 50.0 % [facility] MCV, External 97.8(A) 80 - 95 cu/jose roberto [facility] MCH, External 34.1(A) 27.0 - 33.0 pg [facility] MCHC, External 34.9 32.0 - 36.0 % [facility] PLT, External 207 130 - 400 x1000/uL [facility] RDW-CV, External 13.7 11.5 - 14.5 % [facility] Neutrophils, External 51.6 40 - 74 % [facility] Lymphocytes, External 36.1 19 - 44 % [facility] Monocytes, External 7.0 3.0 - 10.0 % [facility] Eosinophils, External 4.1 1 - 7.0 % [facility] Basophils, External 1.0 0.0 - 2 % [facility] ABS Neutrophils, External 4.65 1.2 - 6.7 k/cumm [facility] ABS Lymphs, External 3.26 1.2 - 3.4 k/cumm [facility] ABS Monocytes, External 0.63 0.11 - 0.7 k/cumm [facility] ABS Eosinophils, External 0.37 0 - 0.7 k/cumm [facility] ABS Basophils, External 0.09 0.0 - 0.2 k/cumm [facility] Blood specimen (specimen) 09/21/2012 9:18 EDT Juli Franz MD PACKAGES & DNA PROBE ORDERABLES [facility] * PHOSPHORUS (09/21/2012 9:18 EDT) Phosphorus, External 2.9 2.5 - 4.9 mg/dL [facility] Blood specimen (specimen) 09/21/2012 9:18 EDT Juli Franz MD CHEMISTRY & BLOOD GA S ORDERABLES [facility] documented in this encounter Visit Diagnoses Not on filedocumented in this encounter Care Teams Guest Services Representative Relationship Specialty Start Date End Date Hanane Pollock, [facility] [address] [place] [address] PCP - General 01/30/09 02/23/19 documented as of this encounter
--- OUTSIDE RECORDS SUMMARY | 2024-05-05 14:00 | XMS_ITS | Encounter Summary ---
Author Organization [facility] Address [address] [place] [address] Care Team Providers Care Supervisor Metal Fabricating Name Role Phone Hanane Pollock NP Primary Care Provider [phone] Reason for Visit * Reason Onset Date Comments Medications Refill 04/06/2013 Encounter Details Date Type Department Care Team (Late st Contact Info) Description 04/06/2013 Refill [facility] Infectious Disease - [address] [address] Juli Franz MD Medications Refill Social History [...] Tab by mouth daily. 30 Tab 3 04/06/2013 07/21/2013 ritonavir (NORVIR) 100 mg tabletIndications:AIDS (acquired immune deficiency syndrome) (HCC-CMS) Take 1 Tab by mouth every 24 hours. 30 Tab 3 04/06/2013 07/21/2013 Raltegravir (ISENTRESS) 400 mg tabletIndications:AIDS (acquired immune deficiency syndrome) (HCC-CMS) Take 1 Tab by mouth 2 times daily. 60 Tab 3 04/06/2013 07/21/2013 lamiVUDine (EPIVIR) 300 mg tabletIndications:AIDS (acquired immune deficiency syndrome) (HCC-CMS) Take 1 Tab by mouth daily. 30 Tab 3 04/06/2013 07/21/2013 atazanavir (REYATAZ) 300 mg capsuleIndications:AIDS (acquired immune deficiency syndrome) (HCC-CMS) Take 1 Cap by mouth daily. 30 Cap 3 04/06/2013 07/21/2013 documented in this encounter Miscellaneous Notes * Telephone Encounter - Ceci Fletcher RN - 04/06/2013 1057 EDT Guanakito is seen in [facility]. Partner Greg, states they've called and left [...] Franz author) E-RX all HIV Medications to [facility] in [facility]. Seen in [facility] every 4-5 months consistently. Next appt. Not [...] Take 1 Cap by mouth daily. Reorder 10/28/2012 04/06/2013 lamiVUDine (EPIVIR) 300 mg tabletIndications:AIDS (acquired immune deficiency syndrome) (HCC-CMS) Take 1 Tab by mouth daily. Reorder 10/28/2012 04/06/2013 Raltegravir (ISENTRESS) 400 mg TabIndications:AIDS (acquired immune deficiency syndrome) (HCC-CMS) Take 1 Tab by mouth 2 times daily. Reorder 10/28/2012 04/06/2013 ritonavir (NORVIR) 100 mg tabletIndications:AIDS (acquired immune deficiency syndrome) (HCC-CMS) Take 1 Tab by mouth every 24 hours. Reorder 10/28/2012 04/06/2013 tenofovir (VIREAD) 300 mg tabletIndications:AIDS (acquired immune deficiency syndrome) ([facility]-CMS) Take 1 Tab by mouth daily. Reorder 10/28/2012 04/06/2013 documented as of this encounter Care Teams Supervisor Metal Fabricating Relationship Specialty Start Date End Date Hanane Pollock NP [facility] [address] [place] [id number] PCP - General 01/30/09 02/23/19 documented as of this encounter
--- OUTSIDE RECORDS SUMMARY | 2024-05-05 14:00 | XMS_ITS | Encounter Summary ---
Author Organization [facility] Address [address] [place] [address] Care Team Providers Care Grid Trimmer Name Role Phone Hanane Pollock NP Primary Care Provider [phone] Encounter Details Date Type Department Care Team (Late st Contact Info) Description 02/11/2007 Before PRISM Converted Visit ([facility]) [facility] conversion [address] [place] [address] Juli Franz MD Social History Tobacco Use Types Packs/Day Years Used Date Smoking Tobacco: Never Assessed Sex and Gender Information Value Date Recorded Sex Assigned at Not on file Gender Identity Not on file Sexual Orientation Not on file documented as of this encounter Progress Notes * Juli Franz MD - 09/19/2009 1706 EST DIVISION OF INFECTIOUS DISEASE - [facility] PROGRESS/FOLLOWUP NOTE - 02/11/2007 PROBLEM Guanakito presents for reevaluation of his HIV disease/AIDS and his chronic fatigue. He was last seen by me in the comprehensive care clinic on January 09, 2007. Since he was last seen, he says his energy levels remains quite low. He really does not have any new, specific complaints. He did follow up witha dentist who did not put him on antibiotics again, but he had some teeth pulled on the other side of his mouth, although it does not sound like they thought that they were infected at the time. Again, he has not had any subsequent antibiotics. He is still having issues with his bowels. He says he is having soft stool about three times a day and some occasional cramping with it. He never diddrop off a stool specimen. He did see ophthalmology, had a dilated exam and they thought that things looked good. Again, really energy low without any specific complaints. He says he is sleeping okay. He does not think he is depressed. His appetite has been good. He has had no problems with fevers, chills or night sweats. He continues to have issues with vomiting when he is trying to brush his teeth and he starts to gag or if he has been coughing [...] has not noted any dark or tea-colored urine.No problems with new rashes. He says he [...] 70 and regular. Blood pressure is 122/86. His weight was 71.5 kg. He really looks like [...] appreciate any murmurs, rubs or gallops. Abdomen: Soft and nontender, bowel sounds are present. There is [...] really not having a whole lot of localizingcomplaints. I guess my main concern was this all seemed to happen around the time that he was having the dental abscess and issues with that. He did get antibiotics and did have a lot of trouble withdiarrhea. I guess some of this could be postinfectious fatigue. There is nothing to go for endocarditis. He never did send the stool specimen. 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 He is not having fevers. I do not think we are dealing with a hepatoma. We will getan LDH today in addition and will have a low threshold to image his abdomen, although he is reallynot having much of any localizing complaint at the present time. We will await all of the above studies and then would have him follow up with us in the clinic in about one month. He knows to call sooner if he is having any worsening localizing complaints. 2. Diarrhea. As mentioned above, we will check stool for C. difficile. 3. HIV. Continue his present regimen, however, if his lactate is up, we will surely need to stop his drugs and try to get him a regimen which could be more nucleoside-sparing. 4. Alopecia. I forgot to mention on exam that there are no new areas of this, although there has not been improvement in the areas with hair loss. [...] MD -Juli Franz MD - Job ID: [id number] Doc ID: [id number] cc: MD Hanane Robles NP documented in this encounter Plan of Treatment Not on file documented as of this encounter Visit Diagnoses Not on filedocumented in this encounter Care Teams Grid Trimmer Relationship Specialty Start Date End Date Hanane Pollock NP [facility] [address] [place] [address] PCP - General 01/30/09 02/23/19 documented as of this encounter
--- OUTSIDE RECORDS SUMMARY | 2024-05-05 14:00 | XMS_ITS | Encounter Summary ---
Author Organization [facility] Address [address] [place] [address] Care Team Providers Care X Ray Developer Name Role Phone Hanane Pollock NP Primary Care Provider Reason for Visit * Reason Comments HIV Positive/AIDS Encounter Details Date Type Department Care Team (Late st Contact Info) Description 10/02/2011 10:00 EDT Office Visit [facility] Infectious Disease [address] [address] Juli Franz MD AIDS (acquired immune deficiency syndrome) (CMS-HCC); Chronic active viral hepatitis B (CMS-HCC) (HCC-CMS); Chronic hepatitis C without mention of hepatic coma; Abdominal pain; Muscle pain; Lung nodule Social History Tobacco Use Types [...] kg (182 lb 8.7 oz) 10/02/2011 1034 E DT Height - - Body Mass Index 26.96 05/23/2011 0832 EST documented in this encounter Ordered Prescriptions Prescription Sig Dispensed Refills Start Date End Da te atazanavir (REYATAZ) 300 mg capsule Take 1 Cap by mouth daily. 30 Cap 3 10/02/2011 02/12/2012 ritonavir (NORVIR) 100 mg tablet Take 1 Tab by mouth every 24 hours. 30 Tab 3 10/02/2011 02/12/2012 lamivudine (EPIVIR) 300 mg tablet Take 1 Tab by mouth daily. 30 Tab 3 10/02/2011 02/12/2012 tenofovir (VIREAD) 300 mg tablet Take 1 Tab by mouth daily. 30 Tab 3 10/02/2011 02/12/2012 Raltegravir (ISENTRESS) 400 mg Tab Take 1 Tab by mouth 2 times daily. 60 Tab 3 10/02/2011 02/12/2012 documented in this encounter Progress Notes * Beena Wayne - 10/03/2011 0856 EDT Faxed note and labs to Phill at [facility] 10/02 * Juli Franz MD - 10/02/2011 1040 EDT [facility] FOLLOWUP NOTE DOS:10/02/2011 Last seen: 05/08/2011 SUBJECTIVE: Guanakito presents for reevaluation of his HIV disease and his chronic hepatitis. Since he was last seen he has had a couple of mild URIs. He did see Hanane Rossi recently at [facility] because he feels that his abdominal girth [...] painful when he is doing physical activity. Hedoes not really describe weakness. His energy level [...] He has tolerated the meds well. I am concerned that his Cr is creeping up a bit and I think that we need to watch that closely. Felipe also concerned with his muscle sx. His last [...] blip in his ALT - could this representbreakthrough of his HBV. He was to have a HBV DNA with these labs but was not done. Will send him to the lab today for HBV RCR. If HBV viral load up may need to do resistance testing. If HBV DNA neg will obtain HCV PCR. I cannot appreciate any liver enlargement or mass on exam but he is scheduled to hav an abdominal US soon. Await result. 5. Health maintenance. He was due for repeat fasting lipid panel but was not done. He is fasting sowill send him to the lab for lipid panel today. He received a Tdap today. wW have not documented a positive antibody to hep A despite his repeated immunization. We will check his hep A antibody with his labs today. 6. 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 Will need to follow up imaging later this spring or early summer. 7. Elevated BP - he had his BP done after he received his immunization. He [facility]ane [facility] and his BP was nl. He has [...] hepatitis C without mention of hepatic coma Abdominal pain Abdominal pain, unspecified site Muscle pain Mylagia and myositis, unspecified Lung nodule Other diseases of lung, not elsewhere classified documented in this encounter Discontinued Medications Medication Sig Discontinue Reason Start Date End Da te ritonavir 100 mg Tab Take 6 Tabs by mouth every 12 hours. Duplicate Therapy 06/14/2011 10/02/2011 Raltegravir (ISENTRESS) 400 mg Tab Take 1 Tab by mouth 2 times daily. Reorder 06/14/2011 10/02/2011 tenofovir (VIREAD) 300 mg tablet Take 1 Tab by mouth daily. Reorder 06/14/2011 10/02/2011 lamivudine (EPIVIR) 300 mg tablet Take 1 Tab by mouth daily. Reorder 06/14/2011 10/02/2011 ritonavir (NORVIR) 100 mg tablet Take 100 mg by mouth every 24 hours. Reorder 10/02/2011 atazanavir (REYATAZ) 300 mg capsule Take 1 Cap by mouth daily. Reorder 06/14/2011 10/02/2011 documented as of this encounter Historical Medications * This list may reflect changes made after this encounter. Medication Sig Dispensed Refills Start Date End Date GLUC HOWARD/CHONDRO HOWARD A/VIT C/[place] (GLUCOSAMINE CHONDROITIN MAXSTR ORAL) Take 2 Tabs by mouth daily. 06/28/2015 Multivitamins with Minerals Tab Take 1 Tab by mouth daily. 07/20/2015 ritonavir (NORVIR) 100 mg tablet Take 100 mg by mouth every 24 hours. 10/02/2011 added in this encounter Care Teams X Ray Developer Relationship Specialty Start Date End Date Hanane Pollock NP [facility] [address] [place] [address] PCP - General 01/30/09 02/23/19 documented as of this encounter
--- OUTSIDE RECORDS SUMMARY | 2024-05-05 14:00 | XMS_ITS | Encounter Summary ---
Author Organization [facility] Address [address] [place] [address] Care Team Providers Care [employer] Football Coach Name Role Phone Hanane Pollock NP Primary Care Provider [phone] Encounter Details Date Type Department Care Team (Latest Contact Info) Description 05/23/2011 8:04 EST - 05/23/2011 16:27 EST Hospital Encounter [facility] [address] [place] [address] Juli Franz MD Discharge Disposition: Home or [...] Blood Pressure 174/90 05/23/2011 1619 EST ghislaine rodriguez rn notified of high blood pressure Pulse 60 05/23/2011 1619 EST Temperature 36.1 ??C (97 ??F) 05/23/2011 1151 EST Respiratory Rate 16 05/23/2011 1619 EST Oxygen Saturation 100% 05/23/2011 1619 EST Inhaled Oxygen Concentration - - Weight 78.5 kg (173 lb) 05/23/2011 0832 EST Height 175.3 cm (5' 9) 05/23/2011 0832 EST Body Mass Index 25.55 05/23/2011 0832 EST documented in this encounter Discharge Instructions * Discharge Instructions* Jemma Parada RN - 05/23/2011 12:52 EST RADIOLOGY PATIENT EDUCATION INSTRUCTIONS FOLLOWING A Lung Biopsy Procedure Site - Right Back Physician Performing Procedure - Michael Kirkpatrick and CHANTAL Moses ?? Return home and rest for the remainder of the day. You should have a responsible adult drive youhome and arrange for someone to remain with you for the rest of the day. ?? DO NOT drive or make any legal decisions today as the medications that were administered during the procedure for sedation and pain control may have effects that last several hours. Limit physicalexertion to performing normal activities; avoid heavy lifting [...] for any increase in drainage. Keep the dressing dry for 24 hours and then remove it. If you notice excessive bleeding from the skin apply pressureto the site and seek medical attention. ?? Call your physician for a follow-up appointment. The results of the procedure will be sent to the referring MD and it usually takes 3-4 days. ?? If you have been discharged with a small amount of air around your lung (i.e., a pneumothorax) and need to return for a chest x-ray to a facility other than [facility] because of worsening symptoms, youmay need to know the amount of air so that the physician interpreting your film can determine if itis enlarging. PLEASE BRING THIS FORM WITH YOU TO THE EMERGENCY ROOM. The distance the lung is displaced inferiorly from the apex of the chest is [...] documented in this encounter Progress Notes * Kate Martinez RN - 05/23/2011 1424 EST 1420 Assumed care of patient. Lying supine -on O2 2L/min via NC. Denies pain. Partner & research study in to see patient.Remains NPO for chest xray scheduled for [phone] Patient c/o Pressureon right side of chest- No change in [...] Patient tolerated orthostatic VS well. Taking po wel l.1627 Patient discharged to home with S/O via wheelchair without dyspnea. * Frank Simmons PA-C - 05/23/2011 1416 EST [...] 2 hrs. Keep pt on 02 via [place] D/c home F/u Dr. Franz for bx results Seek emergency care for change in breathing. Call IR with questions. Resume home medications. * Jemma Parada RN - 05/23/2011 1152 EST At 1150 pt admitted to CVU per stretcher from IR/CT status post lung bx. Bed in lowest position. Side rails up. Call josue within reach. Karl PO food & liquids. Partner at bedside. Pt is very sleepy and arousable. Pt's sat on RA is 91-92%. 1315 Dr. Franz here to see pt and his partner * Jason Sanchez RN - 05/23/2011 1010 EST Reviewed Labs, MAR, Pt history and Allergies. Pt ID'd by name lala. Assessed IV. Explained goals of procedure and sedation. Pt brought into room via stertcher. Pt moved self to table. Positioned prone on table. BP cuff, EKG Leads and Pulse Ox placed on Pt. VSS. Pt in SR on monitor. Safety strapin place. Matrix Worker Scan completed. 1005- Ruiz Moment completed with all in room. Right Upper Back prepped and draped in usual sterile fashion. Right Upper Lobe Lung biopsy completed. Fentanyl 250 mcg and Versed 5 mg given for pt comfort. Report called to LYDIA Forrest in CVU . Pt transferred back to Uvia stretcher in stable condition. * Kiara Gregorio RN - 05/23/2011 0825 EST 0820 Guanakito Vinsonbarbara arrived to the Cardiovascular Unit via ambulatory. Patient identified per [facility] policy and oriented to Unit. Reviewed pre-procedure instructions with Guanakito Cedillo. Discussed history, med list, Allergies, NPO, Sedation,& Procedure information. All questions answered & patient verbalizes understanding. Pre-CT Lung Biopsy prep completed per protocol. Stretcher in low position with side rails up & call josue within patient reach. All questions answered. 0900 Partner Fernando at bedside 0930 offerred warm blanket, position change and bathroom break. All pt wants is food. No other needs expressed. 0948 to IR via stretcher with RN * Reanna Washington RN - 05/22/2011 1048 EST Spoke with patient regarding procedure scheduled for 05/23/11. Instructed to arrive in registrationat 0815, to be NPO after midnight, however may take routine meds in am with a sip of water, to bring a current medication list with him for review prior to procedure, and to have a straight truck driver due to sedation he will receive for the procedure. Patient states understanding with no questions at this time. documented in this encounter H&P Notes * Frank Simmons PA-C - 05/23/2011 0930 EST [...] Yes documented in this encounter Procedure Notes * Securities Supervisor, Ashley - 05/28/2011 9909 ESTAssociated Order(s): PROCEDURE REPORTS - SCANNED * Frank Simmons PA-C - 05/23/2011 1141 EST IR Procedure Note Procedure: CT guided right lung biopsy Date Performed: 05/23/2011 Radiologist/Inspector Welded Parts(s): MD Casimiro/LAUREEN Simmons Sedation/Anesthesia: Versed 5 mg [...] and culture Recommendations: F/u cytology and cx MARLENE Agudelo 05/23/2011 11:41 documented in this encounter Miscellaneous Notes * Scanned Note-Null - Securities Supervisor, Scan - 05/28/2011 1139 EST * Scanned Note-Null - Securities Supervisor, Scan - 05/28/2011 1139 EST * Scanned Note-Null - Securities Supervisor, Scan - 05/28/2011 1139 EST documented in this encounter Plan of Treatment Not on file documented as of this encounter Procedures Procedure Name Priority Date/Time Associated Diagnosis Comments PROCEDURE REPORTS - SCANNED 05/28/2011 11:39 EST CHEST PA STAT 05/23/2011 16:04 EST CHEST PA STAT 05/23/2011 13:50 EST BACTERIAL CULTURE/SMEAR, RESPIRATORY Routine 05/23/2011 11:19 EST FUNGUS CULTURE/SMEAR Routine 05/23/2011 11:19 EST AFB CULTURE/SMEAR, OTHER Routine 05/23/2011 11:18 EST PROTIME STAT 05/23/2011 8:30 EST COMPLETE BLOOD COUNT STAT 05/23/2011 8:30 EST documented in this encounter Results * PROCEDURE REPORTS - SCANNED (05/28/2011 11:39 EST) 05/28/2011 11:3 9 EST Narrative Transcriptions Securities Supervisor, Scan - 05/28/2011 11:39 EST Scan Securities Supervisor PROCEDURE/MINOR SURG ICAL ORDERABLES * CHEST PA (05/23/2011 16:04 EST) Anatomical Region Laterality Modality Other 05/23/2011 16:0 4 EST 05/23/2011 16:22 EST Narrative 05/23/2011 16:22 EST CHEST PA ??May 23, 2011 04:04:00 PM Signs and Symptoms/Comments: ??s/p right lung bx c/b PTX Findings: Comparison 05/23/2011 Upright PA view of the chest shows mild interval increase in the size of the right pneumothorax since the prior film. The bones, soft tissues and cardio mediastinal contours are unchanged. There is a lung nodule in the right apex. The lungs otherwise are clear accounting for the low lung volumes. Procedure Note 05/23/2011 CHEST PA May 23, 2011 04:04:00 PM Signs and Symptoms/Comments: s/p right lung bx c/b PTX Findings: Comparison 05/23/2011 Upright PA view of the chest shows mild interval increase in the size of the right pneumothorax since the prior film. The bones, soft tissues and cardio mediastinal contours are unchanged. There is a lung nodule in the right apex. The lungs otherwise are clear accounting for the low lung volumes. Frank Simmons PA-C IMG DIAGNOSTIC IM AGING ORDERABLES * CHEST PA (05/23/2011 13:50 EST) Anatomical Region Laterality Modality Other 05/23/2011 13:5 0 EST 05/23/2011 14:08 EST Narrative 05/23/2011 14:08 EST CHEST PA ??May 23, 2011 01:50:00 PM Signs and Symptoms/Comments: ??s/p right lung biopsy Findings: Upright PA view of the chest following right lung biopsy shows a small to moderate sized apical pneumothorax. There is no evidence of hemothorax. The bones, soft tissues and cardio mediastinal contours are unremarkable. There is an ill-defined mass present in the right lung apex. The left lung is clear. Procedure Note 05/23/2011 CHEST PA May 23, 2011 01:50:00 PM Signs and Symptoms/Comments: s/p right lung biopsy Findings: Upright PA view of the chest following right lung biopsy shows a small to moderate sized apical pneumothorax. There is no evidence of hemothorax. The bones, soft tissues and cardio mediastinal contours are unremarkable. There is an ill-defined mass present in the right lung apex. The left lung is clear. Frank Simmons PA-C IMG DIAGNOSTIC IM AGING ORDERABLES * BACTERIAL CULTURE/SMEAR, RESPIRATORY (05/23/2011 11:19 EST) Specimen Description Fine Needle Asp Lung, right upper lobe [facility] Gram Smear Result Few Polys [facility] Gram Smear Result No alveolar macrophages seen [facility] Gram Smear Result No bacteria seen [facility] Result No growth [facility] Report Status 05/28/2011 Final [facility] Specimen from lung obtained by fine needle aspiration procedure (specimen) 05/23/2011 11:19 EST 05/23/2011 12:21 EST Juli Franz MD MICROBIOLOGY - GENER AL ORDERABLES [facility] [address] [place] [address] * FUNGUS CULTURE/SMEAR, OTHER (05/23/2011 11:19 EST) Specimen Description Fine Needle Asp Lung, right upper lobe 1cc [facility] Fungal Smear No fungi seen [facility] Result No fungi isolated [facility] Report Status 06/20/[address] [facility] Specimen from lung obtained by fine needle aspiration procedure (specimen) 05/23/2011 11:19 EST 05/23/2011 12:19 EST Frank Simmons PA-C MICROBIOLOGY - GE NERAL ORDERABLES Performing Organization Address [facility] de Phone Number [facility] [address] [place] [address] * AFB CULTURE/SMEAR, OTHER (05/23/2011 11:18 EST) Specimen Description Fine Needle Asp Lung, right upper lobe [address]cc [facility] Acid Fast No acid-fast bacilli seen [facility] Result No acid-fast bacilli isolated [facility] Report Status 07/05/2011 Final [facility] Specimen from lung obtained by fine needle aspiration procedure (specimen) 05/23/2011 11:18 EST 05/23/2011 12:17 EST Juli Franz MD MICROBIOLOGY - GENER AL ORDERABLES Performing Organization Address [facility] de Phone Number [facility] [address] [place] [address] * PROTIME (05/23/2011 8:30 EST) Pro Time 11.3 9.5 - 13.1 secs [facility] I.N.R. 1.0 0.9 - 1.[address] [facility] Comment: Moderate Intensity Coumadin INR = 2.0-3.0 Adjustments in anticoagulant therapy dose should be based upon the INR and NOT the Pro Time. Blood specimen (specimen) 05/23/2011 8:30 EST 05/23/2011 9:07 EST Danika Hunter RN HEMATOLOGY & PF4 ORD ERABLES Performing Organization Address [facility] Co de Phone Number [facility] [address] [place] [address] * (ABNORMAL) HEMAGRAM (05/23/2011 8:30 EST) WBC 8.37 4.0 - 10.4 K/cmm [facility] RBC 4.46 4.36 - 5.78 M/cmm [facility] Hemoglobin 15.6 13.8 - 17.3 gm/dl [facility] HCT 44.1 39.5 - 50.2 % [facility] MCV 99(H) 81 - [address] [facility] MCH 35.0(H) 27.6 - 33.[address] [facility] MCHC 35.4 32.8 - 36.4 gm/dl [facility] PLT 175 141 - 320 K/cmm [facility] RDW-CV 13.9 11.8 - 14.1 % [facility] Blood specimen (specimen) 05/23/2011 8:30 EST 05/23/2011 9:07 EST Danika Hunter RN HEMATOLOGY & PF4 ORD ERABLES [facility] [address] [place] [address] documented in this encounter Visit Diagnoses Not on filedocumented in this encounter Administered Medications Inactive Administered Medications - up to 3 most recent administrations Medication Order MAR Action Action Date Dose Rate Site fentanyl citrate (PF) 50 mcg/mL injection 25-250 mcg 25-250 mcg, intravenous, ONCE PRN, 1 dose, Starting on Leeann 05/23/11 at 1019, Until Leeann 05/23/11 at 1135, Other, radiology, Routine, Intraprocedure Given 05/23/2011 11:35 EST 250 mcg midazolam (VERSED) injection 0.5-10 mg 0.5-10 mg, intravenous, ONCE PRN, 1 dose, Starting on Leenan 05/23/11 at 1019, Until Leeann 05/23/11 at 1134, Sedation, Routine, Intraprocedure Given 05/23/2011 11:34 EST 5 mg sodium chloride 0.9 % (NS) infusion 50 mL/hr, intravenous, CONTINUOUS, Starting on Leeann 05/23/11 at 0845, Until Leeann 05/23/11 at 1846, Routine, Preprocedure New Bag 05/23/2011 9:09 EST 50 mL/hr 50 mL/hr documented in this encounter Active and Recently Administered Medications Times are shown in EST. Continuous Medication Order 05/21/2011 05/22/2011 05/23/2011 sodium chloride 0.9 % (NS) infusion (CANCELED) 50 mL/hr, intravenous, CONTINUOUS, Starting on Leeann 05/23/11 at 0845, Until Leeann 05/23/11 at 1846, Routine, Preprocedure 0909 (New Bag - Prov ider: Kiara Gregorio RN) PRN Medication Order 05/21/2011 05/22/2011 05/23/2011 fentanyl citrate (PF) 50 mcg/mL injection 25-250 mcg (COMPLETED) 25-250 mcg, intravenous, ONCE PRN, 1 dose, Starting on Leeann 05/23/11 at 1019, Until Leeann 05/23/11 at 1135, Other, radiology, Routine, Intraprocedure 1135 (Given - Provid er: Jason Sanchez RN - Comment: given in divided doses intra procedure) midazolam (VERSED) injection 0.5-10 mg (COMPLETED) 0.5-10 mg, intravenous, ONCE PRN, 1 dose, Starting on Leeann 05/23/11 at 1019, Until Leeann 05/23/11 at 1134, Sedation, Routine, Intraprocedure 1134 (Given - Provid er: Jason Sanchez RN - Comment: given in divided doses intra procedure) documented in this encounter Orders Nursing Count Last Ordered Date First Orde red Date BEDREST 1 05/23/2011 NURSING COMMUNICATION 1 05/23/2011 REMOVE IV 1 05/23/2011 Discharge Count Last Ordered Date First Orde red Date DISCHARGE PATIENT 1 05/23/2011 documented in this encounter Care Teams [employer] Football Coach Relationship Specialty Start Date End Date Hanane Pollock NP [facility] [address] [place] [address] PCP - General 01/30/09 02/23/19 documented as of this encounter
--- OUTSIDE RECORDS SUMMARY | 2024-05-05 14:00 | XMS_ITS | Encounter Summary ---
Author Organization [facility] Address [address] [place] [address] Care Team Providers Care Trace Evidence Technician Name Role Phone Hanane Pollock NP Primary Care Provider [phone] Reason for Visit * Reason Comments Follow-up Encounter Details Date Type Department Care Team (Latest Contact Info) Description 07/28/2013 9:30 EST Office Visit [facility] Infectious Disease - [address] [address] Juli Franz MD Human immunodeficiency virus (HIV) disease (HCC-CMS) (Primary Dx); Encounter for long-term (current) use of other medications; Tobacco use disorder; Chronic active type B viral hepatitis (CMS-HCC) (HCC-CMS); Chronic hepatitis C without mention of hepatic coma Social History Tobacco Use Types Packs/Day Years Used Date Smoking Tobacco: Every Day Cigarettes Tobacco Cessation:Ready to Q uit: Yes; Counseling Given: Yes Alcohol Use Standard Drinks/Week Comments Yes 0.8 [...] kg (180 lb 12.4 oz) 07/28/2013 0941 ES T Height - - Body Mass Index 26.7 05/23/2011 0832 EST documented in this encounter Progress Notes * Lavonne Ng - 07/29/2013 0823 EST Mailed lab orders to Hanane Pollock. * Juli Franz MD - 07/28/2013 0912 EST [facility] FOLLOWUP NOTE DOS 07/28/2013 Last seen: 03/03/2013 SUBJECTIVE: Guanakito presents for reevaluation of his HIV disease and his chronic hepatitis B and C. Since he was last seen he has been feeling fairly well. No illnesses since last seen. His appetite has been good. His energy level is not as good. He findsthat he sleeps well at night but he [...] is down a bit on recent blood work.As his present medications are not only treating his HIV but are also treating his chronic hepatitis B I think that we will need to try to continue him on his tenofovir. We will need to watch his creatinine closely. Would continue his present regimen and would have him have repeat blood work and a f ollowup with myself in the comprehensive care clinic [...] 09/2011. He had a flu vaccine this fall 6. Lung nodules - he underwent biopsy [...] Diagnoses Diagnosis Human immunodeficiency virus (HIV) disease (HCC-CMS)- Primary Human immunodeficiency virus [HIV] disease Encounter for long-term (current) use of other medications Tobacco use disorder Chronic active type B viral hepatitis (HCC-CMS) Viral hepatitis B without mention of hepatic coma, chronic, without mention of hepatitis delta Chronic hepatitis C without mention of hepatic coma documented in this encounter Care Teams Trace Evidence Technician Relationship Specialty Start Date End Date Hanane Pollock NP [facility] [address] [place] [address] PCP - General 01/30/09 02/23/19 documented as of this encounter
--- OUTSIDE RECORDS SUMMARY | 2024-05-05 14:00 | XMS_ITS | Encounter Summary ---
Author Organization [facility] Address [address] [place] [address] Care Team Providers Care Trimmer Buffing Wheel Name Role Phone Hanane Pollock NP Primary Care Provider Encounter Details Date Type Department Care Team (Late st Contact Info) Description 04/22/2007 Before PRISM Converted Visit ([facility]) [facility] - [facility] conversion [address] [place] [address] Juli Franz MD Social History Tobacco Use Types Packs/Day Years Used Date Smoking Tobacco: Never Assessed Sex and Gender Information Value Date Recorded Sex Assigned at Not on file Gender Identity Not on file Sexual Orientation Not on file documented as of this encounter Progress Notes * Juli Franz MD - 09/19/2009 1703 EST DIVISION OF INFECTIOUS DISEASE - [facility] PROGRESS/FOLLOWUP NOTE - 04/22/2007 DONNELL Calabrese presents [...] them every day. He did see the forensic psychologist and they did do some steroid injections [...] were loose and not because there was any evidence of infection. He has not had any pain in his mouth. He has not had any further antibiotics. He has had no respiratory symptoms. He is [...] is now smoking up to a pack and a half a day. He said that since [...] the base of the neck posteriorly, but hehad no patches of alopecia more superiorly on the scalp and he does look like he is having some newhair growth at the posterior part of the neck. I did not appreciate any cervical or supraclavicularlymphadenopathy. He is missing his two bottom teeth in the front, but I do not see any problems with any swollen areas along the gum. He has no oral lesions. His lungs are clear to auscultation and percussion. He has no spinal tenderness. Cardiac exam reveals a regular rhythm without murmurs, rubs o r gallops. Abdominal exam: Slightly distended. Bowel sounds are present, soft, nontender. I really cannot appreciate any hepatosplenomegaly or masses. Extremities: He has no edema. Skin is without acute rash. Neurologic: Exam is grossly nonfocal. LABORATORY DATA: Studies [...] do some workup for this. Again, his TSHwas fine. That was the only thing that [...] I am a bit concerned that his viral load is detectable. This happened once before and, on further questioning, it appeared that it mayhave been related to an intraarticular steroid injection. I am wondering if that is playing a role a gain, meaning he had steroid injections into his scalp. This might explain his elevated white bloodcell count and also the blip in his viral load. He has really had no other intercurrent illnesses. He has been taking his medications regularly. For nowwould repeat his viral load in about two monthsto ensure that it is not going up. Would do an ultrasensitive viral load again at that time. If allis stable, would continue his meds and then he would not need to have full blood work until late 2006 or early July 2007 and then have him follow up with me in the Comprehensive Care Clinic after that. For now, we would continue his present regimen. 3. Chronic hepatitis. He has both chronic hepatitis C and chronic hepatitis B. He has had a biopsy and he clearly had evidence of cirrhosis. He has been fairly good about limiting his alcohol intake,although he is not completely alcohol free. He has had a hepatitis A vaccine in the past, but we have not confirmed that he is immune to hepatitis A and, with his next blood work, would plan to checkhis hepatitis A antibody. In terms of hepatitis B, he has remained on the Viread and the Epivir. Wehave not looked to see if he converted his [...] time as we just recently have gotten his depression under reasonable control. 4. Tobacco use. I was hoping that on the Wellbutrin, it might help him to decrease or discontinue his tobacco use, but that has not worked. I did encourage him to discuss with his partner that they set a date to try to discontinue smoking. I [...] - Juli Franz MD - Job ID: [id number] Doc ID: [id number] cc: Hanane Pollock NP documented in this encounter Plan of Treatment Not on file documented as of this encounter Visit Diagnoses Not on filedocumented in this encounter Care Teams Trimmer Buffing Wheel Relationship Specialty Start Date End Date Hanane Pollock NP [facility] [address] [place] [address] PCP - General 01/30/09 02/23/19 documented as of this encounter
--- OUTSIDE RECORDS SUMMARY | 2024-05-05 14:00 | XMS_ITS | Encounter Summary ---
Author Organization [facility] Address [address] [place] [address] Care Team Providers Care Stripper Color Name Role Phone Hanane Pollock NP Primary Care Provider [phone] Reason for Visit * Reason Comments HIV Positive/AIDS Encounter Details Date Type Department Care Team (Late st Contact Info) Description 01/29/2012 10:30 EDT Office Visit [facility] Infectious Disease [address] [address] Juli Franz MD AIDS (acquired immune deficiency [...] encounter Progress Notes * Lavonne Ng - 01/30/2012 0824 EDT Faxed copy of office note and med list to Hanane Pollock. Faxed lab orders to [facility]. * Juli Franz MD - 01/29/2012 1038 EDT [facility] FOLLOWUP NOTE DOS:01/29/2012 Last seen: 10/02/2011 SUBJECTIVE: [...] thickness in his throat. He treated with Benadrylat home with improvement. He never developed SOB. [...] well. I am concerned that his Cr was up [...] [facility] 2. [...] acceptable. 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 Will need to follow up imaging later this spring or early summer. 7. Elevated BP - he had his BP done after he received his immunization. He saw Hanane last week at [place] and his BP was nl. He has [...] coma documented in this encounter Care Teams Stripper Color Relationship Specialty Start Date End Date Hanane Pollock NP [facility] [address] [place] [address] PCP - General 01/30/09 02/23/19 documented as of this encounter
--- OUTSIDE RECORDS SUMMARY | 2024-05-05 14:00 | XMS_ITS | Encounter Summary ---
Author Organization [facility] Address [address] [place] [address] Care Team Providers Care Compressor Engineer Name Role Phone Hanane Pollock NP Primary Care Provider [phone] Encounter Details Date Type Department Care Team (Late st Contact Info) Description 05/05/2010 Orders Only [facility] Infectious Disease - [address] [address] Juli Franz MD Chronic hepatitis C without mention of hepatic coma; AIDS (acquired immune deficiency syndrome) (CMS-HCC); Chronic active viral hepatitis B (CMS-HCC) (HCC-CMS) Social History Tobacco Use Types Packs/Day Years Used Date Smoking Tobacco: Never Assessed Sex and Gender Information Value Date Recorded Sex Assigned at Not on file Gender Identity Not on file Sexual Orientation Not on file documented as of this encounter Plan of Treatment Not on file documented as of this encounter Visit Diagnoses Diagnosis Chronic hepatitis C without mention of hepatic coma AIDS (acquired immune deficiency syndrome) (HCC-CMS) Human immunodeficiency virus [HIV] disease Chronic active viral hepatitis B (HCC-CMS) Viral hepatitis B without mention of hepatic coma, chronic, without mention of hepatitis delta documented in this encounter Care Teams Compressor Engineer Relationship Specialty Start Date End Date Hanane Pollock NP [facility] [address] [place] [address] PCP - General 01/30/09 02/23/19 documented as of this encounter
--- OUTSIDE RECORDS SUMMARY | 2024-05-05 14:00 | XMS_ITS | Encounter Summary ---
Author Organization [facility] Address [address] [place] [address] Care Team Providers Care Slab Inspector Name Role Phone Hanane Pollock NP Primary Care Provider [phone] Encounter Details Date Type Department Care Team (Late st Contact Info) Description 06/14/2011 Orders Only [facility] Infectious Disease - [address] [address] Juli Franz MD Chronic active viral hepatitis B (CMS-HCC) (HCC-[facility]); AIDS (acquired immune deficiency syndrome) ([facility]) Social History Tobacco Use Types Packs/Day [...] Refills Start Date End Da te ritonavir 100 mg Tab Take 6 Tabs by mouth every 12 hours. 30 Tab 3 06/14/2011 10/02/2011 lamivudine (EPIVIR) 300 mg tablet Take 1 Tab by mouth daily. 30 Tab 3 06/14/2011 10/02/2011 tenofovir (VIREAD) 300 mg tablet Take 1 Tab by mouth daily. 30 Tab 3 06/14/2011 10/02/2011 Raltegravir (ISENTRESS) 400 mg Tab Take 1 Tab by mouth 2 times daily. 60 Tab 3 06/14/2011 10/02/2011 atazanavir (REYATAZ) 300 mg capsule Take 1 Cap by mouth daily. 30 Cap 3 06/14/2011 10/02/2011 buPROPion (WELLBUTRIN SR) 100 mg SR tablet Take 1 Tab by mouth daily. 30 Tab 3 06/14/2011 06/03/2012 documented in this encounter Plan of Treatment Not on file documented as of this encounter Visit Diagnoses Diagnosis Chronic active viral hepatitis B (HCC-CMS) Viral hepatitis B without mention of hepatic coma, chronic, without mention of hepatitis delta AIDS (acquired immune deficiency syndrome) (HCC-CMS) Human immunodeficiency virus [HIV] disease documented in this encounter Discontinued Medications Medication Sig Discontinue Reason Start Date End Da te ritonavir (NORVIR) 100 mg capsule Take 100 mg by mouth daily. 06/14/2011 buPROPion (WELLBUTRIN SR) 100 mg SR tablet Take 100 mg by mouth daily. Reorder 06/14/2011 atazanavir (REYATAZ) 300 mg capsule Take 300 mg by mouth daily. Reorder 06/14/2011 Raltegravir (ISENTRESS) 400 mg Tab Take 400 mg by mouth 2 times daily. Reorder 06/14/2011 tenofovir (VIREAD) 300 mg tablet Take 300 mg by mouth daily. Reorder 06/14/2011 lamivudine (EPIVIR) 300 mg tablet Take 300 mg by mouth daily. Reorder 06/14/2011 documented as of this encounter Care Teams Slab Inspector Relationship Specialty Start Date End Date Hanane Pollock NP [facility] [address] [place] [address] PCP - General 01/30/09 02/23/19 documented as of this encounter
--- OUTSIDE RECORDS SUMMARY | 2024-05-05 14:00 | XMS_ITS | Encounter Summary ---
Author Organization [facility] Address [address] [place] [address] Care Team Providers Care Vacuum Drier Tender Name Role Phone Hanane Pollock NP Primary Care Provider [phone] Encounter Details Date Type Department Care Team (Late st Contact Info) Description 03/19/2013 Orders Only [facility] Infectious Disease - [facility] [address] [place] [address] Juli Franz MD Social History Tobacco Use [...] Diagnosis Comments HIV 1 RNA QUANTITATION Routine 02/26/2013 12:43 EDT documented in this encounter Results * (ABNORMAL) HIV 1 RNA QUANTITATION (02/26/2013 12:43 EDT) HIV1 RNA, External 178 Undetected copies/mL [facility] Comment:Please see scanned r eport in PRISM for further interpretation Blood specimen (specimen) 02/26/2013 12:43 EDT Juli Franz MD CHEMISTRY & BLOOD GA S ORDERABLES [facility] documented in this encounter Visit Diagnoses Not on filedocumented in this encounter Care Teams Vacuum Drier Tender Relationship Specialty Start Date End Date Hanane Pollock, SOM [facility] [address] [place] [address] PCP - General 01/30/09 02/23/19 documented as of this encounter
--- OUTSIDE RECORDS SUMMARY | 2024-05-05 14:00 | XMS_ITS | Encounter Summary ---
Author Organization [facility] Address [address] [place] [address] Care Team Providers Care Toeing Stockings Name Role Phone Hanane Pollock NP Primary Care Provider [phone] Encounter Details Date Type Department Care Team (Late st Contact Info) Description 04/08/2013 Orders Only [facility] Infectious Disease - [address] [id number] Juli Franz MD Social History Tobacco Use [...] Date/Time Associated Diagnosis Comments COMPREHENSIVE METABOLIC PANEL (CMP) Routine 02/26/2013 12:45 EDT COMPLETE BLOOD COUNT AND DIFFERENTIAL Routine 02/26/2013 12:43 EDT PHOSPHORUS Routine 02/26/2013 12:43 EDT CK Routine 02/26/2013 12:43 EDT LIPID PROFILE (INCLUDES CHOLESTEROL, TRIGLYCERIDES, HDL, LDL) Routine 02/26/2013 12:43 EDT documented in this encounter Results * (ABNORMAL) COMPREHENSIVE METABOLIC PANEL (CMP) (02/26/2013 12:45 EDT) GFR, Calculated, External >=60.00 >=60.00 mL/min/1 .73m2 [facility] Glucose, Serum, External 74 70 - 100 mg/dL [facility] Albumin, External 4.7 3.4 - 5.0 g/dL [facility] Total Alkaline Phosphatase, External 103 38 - 126 U/L [facility] ALT, External 59 12 - 78 U/L [facility] AST, External 26 15 - 37 U/L [facility] BUN, External 18 7 - 18 mg/dL [facility] Calculated Calcium, External Not given MICHEAL RN [facility] Calcium, External 9.1 8.5 - 10.1 mg/dL [facility] Chloride, External 104 98 - 107 mmol/L [facility] CO2, External 27.8 21.0 - 32.0 mmol/L [facility] Creatinine, External 1.2 0.8 - 1.3 mg/dL [facility] Fasting?, External Unknown [facility] Potassium, External 4.2 3.5 - 5.1 mmol/L [facility] Sodium, External 139 136 - 145 mmol/L [facility] Total Protein, External 7.5 6.4 - 8.2 g/dL [facility] Bilirubin, Total, External 2.63(A) 0.2 - 1.0 mg/dL [facility] Comment:Please see scanned r eport in PRISM for further interpretation Blood specimen (specimen) 02/26/2013 12:45 EDT Juli Franz MD CHEMISTRY & BLOOD GA S ORDERABLES [facility] * CK (02/26/2013 12:43 EDT) CK, External 172 39 - 308 U/L [facility] Blood specimen (specimen) 02/26/2013 12:43 EDT Juli Franz MD CHEMISTRY & BLOOD GA S ORDERABLES [facility] * (ABNORMAL) HEMAGRAM AND DIFFERENTIAL (02/26/2013 12:43 EDT) WBC, External 8.73 4.4 - 10.8 k/cumm [facility] RBC, External 4.81 4.50 - 6.00 m/cumm [facility] Hemoglobin, External 16.5 13.5 - 17.5 g/dL [facility] HCT, External 47.3 40.0 - 50.0 % [facility] MCV, External 98.3(A) 80 - 95 fL [facility] MCH, External 34.3(A) 27.0 - 33.0 pg [facility] MCHC, External 34.9 32.0 - 36.0 % [facility] PLT, External 204 130 - 400 x1000/uL [facility] RDW-CV, External 13.5 11.8 - 14.1 % [facility] Neutrophils, External 51.1 40 - 74 % [facility] Lymphocytes, External 36.1 19 - 44 % [facility] Monocytes, External 8.5 3.0 - 10.0 % [facility] Eosinophils, External 3.6 1 - 7.0 % [facility] Basophils, External 0.6 0.0 - 2.0 % [facility] ABS Neutrophils, External 4.47 1.2 - 6.7 k/cumm [facility] ABS Lymphs, External 3.15 1.2 - 3.4 k/cumm [facility] ABS Monocytes, External 0.74(A) 0.11 - 0.7 k/cumm [facility] ABS Eosinophils, External 0.31 0 - 0.7 k/cumm [facility] ABS Basophils, External 0.05 0.0 - 0.2 k/cumm [facility] Comment:Please see scanned r eport in PRISM for further interpretation Blood specimen (specimen) 02/26/2013 12:43 EDT Juli Franz MD PACKAGES & DNA PROBE ORDERABLES Performing Organization Address City/[facility]/ZIP Co de Phone Number [facility] * (ABNORMAL) LIPID PROFILE (INCLUDES CHOLESTEROL, TRIGLYCERIDES, HDL, LDL) (02/26/2013 12:43 EDT) Cholesterol, External 154 50 - 200 mg/dL [facility] Triglycerides, External 185(A) 15 - 150 mg/dL [facility] HDL, External 29(A) 40 - 60 mg/dL [facility] LDL, External 94 mg/dL [facility] Chol/HDL Ratio, External Not given [facility] Fasting?, External Unknown N [facility] Comment:Please see scanned r eport in PRISM for further interpretation Blood specimen (specimen) 02/26/2013 12:43 EDT Juli Franz MD CHEMISTRY & BLOOD GA S ORDERABLES Performing Organization Address [facility] Co de Phone Number [facility] * PHOSPHORUS (02/26/2013 12:43 EDT) Phosphorus, External 3.6 2.5 - 4.9 mg/dL [facility] Blood specimen (specimen) 02/26/2013 12:43 EDT Juli Franz MD CHEMISTRY & BLOOD GA S ORDERABLES Performing Organization Address [facility]/ZIP Co de Phone Number [facility] documented in this encounter Visit Diagnoses Not on filedocumented in this encounter Care Teams Toeing Stockings Relationship Specialty Start Date End Date Hanane Pollock NP [facility] [address] [place] [address] PCP - General 01/30/09 02/23/19 documented as of this encounter
--- OUTSIDE RECORDS SUMMARY | 2024-05-05 14:00 | XMS_ITS | Encounter Summary ---
Author Organization [facility] Address [address] [place] [address] Care Team Providers Care High School Agriculture Teacher Name Role Phone Hanane Pollock NP Primary Care Provider [phone] Reason for Visit * Reason Onset Date Comments Other 05/18/2010 medication Encounter Details Date Type Department Care Team (Late Contact Info) Description 05/18/2010 Telephone [facility] Infectious Disease - [address] [address] Juli Franz MD Other (medication) Social History Tobacco Use Types Packs/Day Years Used Date Smoking Tobacco: Never Assessed Sex and Gender Information Value Date Recorded Sex Assigned at Not on file Gender Identity Not on file Sexual Orientation Not on file documented as of this encounter Miscellaneous Notes * Telephone Encounter - Jesika Srinivasan RN - 05/18/[address] Franz will e-scribe the med for him. Pt has been notified. * Telephone Encounter - Lavonne Ng - 05/18/2010 1327 EDT Pt stated script for ointment for his ear was suppose to be called into [facility] pharmacy in [facility] a week ago. Stated they do not have script as of yet. Their phone is [phone]. Pt's phone is [phone]. documented in this encounter Plan of Treatment Not on file documented as of this encounter Visit Diagnoses Not on filedocumented in this encounter Care Teams High School Agriculture Teacher Relationship Specialty Start Date End Date Hanane Pollock, SOM [facility] [address] [place] [address] PCP - General 01/30/09 02/23/19 documented as of this encounter
--- OUTSIDE RECORDS SUMMARY | 2024-05-05 14:00 | XMS_ITS | Encounter Summary ---
Author Organization [facility] Address [address] [place] [address] Care Team Providers Care Utilization Management Manager Name Role Phone Hanane Pollock NP Primary Care Provider [phone] Reason for Visit * Reason Comments Follow-up Encounter Details Date Type Department Care Team (Latest Contact Info) Description 06/03/2012 9:45 EST Office Visit [facility] Infectious Disease - [address] [address] Juli Franz MD Human immunodeficiency virus (HIV) disease ([facility]-CMS); Chronic active type B viral hepatitis (CMS-HCC) (HCC-CMS); Headache Social History Tobacco Use Types Packs/Day Years [...] encounter Progress Notes * Lavonne Ng - 06/05/2012 0838 EST Faxed lab orders to [facility]. Mailed copy of office note to [facility]. * Juli Franz MD - 06/03/2012 0944 EST [facility] FOLLOWUP NOTE DOS 06/03/2012 Last seen: 01/29/2012 SUBJECTIVE: Guan[place]ito presents for reevaluation of his HIV disease and his chronic hepatitis. Since he was last seen he has not had any acute illness. Energy level is down. He has been under stress aboutupcoming court date. Having VICK daily since summer. [...] dentition. No cervical or supraclavicular lymphadenopathy. On leftanterior scalp has a soft nodule that is [...] He has tolerated the meds well. I was concerned that his Cr was up a bit on last labs but it has not continued to increase. I think that we need to watch that closely. CK was elevated on prior labs but CK done in preparation for this visit was wnl. His viral load is just [...] therapy based on his most recent biopsy. Last HBV DNA remained low/ Plan to repeat HBV DNA with next labs. Last abd US failed to reveal any liver abnormality. 5. Health maintenance. Lipid panel in 10/2011 was acceptable. Hep A antibody neg so would reimmunizewith HAV vaccine. He had his flu shot already. Tdap was given in 09/2011 6. 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 Will repeat his CXR to eval for progression of lung nodules. If any change may need repeat CT of the chest. 7. VICK - this is a new problem . The timing of onset corresponds to the law suit. He feels that he is really stressed. Neuro exam is normal. He goes to court next week. Once he gets through all of thestress if the VICK persists he will need further eval. 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 documented in this encounter Plan of Treatment Not on file documented as of this encounter Visit Diagnoses Diagnosis Human immunodeficiency virus (HIV) disease (HCC-CMS) Human immunodeficiency virus [HIV] disease Chronic active type B viral hepatitis (HCC-CMS) Viral hepatitis B without mention of hepatic coma, chronic, without mention of hepatitis delta Headache(784.0) Headache documented in this encounter Discontinued Medications Medication Sig Discontinue Reason Start Date End Da te buPROPion (WELLBUTRIN SR) 100 mg SR tablet Take 1 Tab by mouth daily. Patient Stopped Taking 06/14/2011 06/03/2012 documented as of this encounter Historical Medications * This list may reflect changes made after this encounter. Medication Sig Dispensed Refills Start Date End Date Calcium-Cholecalciferol, D3, (CALCARB) 600 mg(1,500mg) -200 unit Tab Take 1 Tab by mouth daily. 07/20/2015 added in this encounter Care Teams Utilization Management Manager Relationship Specialty Start Date End Date Hanane Pollock NP [facility] [address] [place] [address] PCP - General 01/30/09 02/23/19 documented as of this encounter
--- OUTSIDE RECORDS SUMMARY | 2024-05-05 14:00 | XMS_ITS | Encounter Summary ---
Author Organization [facility] Address [address] [place] [address] Care Team Providers Care Sweeper Brush Maker Machine Name Role Phone Hanane Pollock AIRPORT OPERATIONS MANAGER Primary Care Provider [phone] Encounter Details Date Type Department Care Team (Late st Contact Info) Description 08/06/2011 Documentation Visit [facility] Infectious Disease - [facility] [address] [place] [address] Ceci Fletcher, RN Social History Tobacco Use Types Packs/Day Years Used Date Smoking Tobacco: Every Day Cigarettes Alcohol Use Standard Drinks/Week Comments Yes 0 (1 standard drink = 0.6 oz pur e alcohol) socially Sex and Gender Information Value Date Recorded Sex Assigned at Not on file Gender Identity Not on file Sexual Orientation Not on file documented as of this encounter Progress Notes * Ceci Fletcher RN - 08/06/2011 0833 EST [place] informed that biopsy was negative, which he states he knew. He was informed that the cultureswere negative per Dr. Franz. He was instructed to call Hanane Pollock at [facility] to make sure he has an appointment to discuss details of plan with Dr. Franz. documented in this encounter Plan of Treatment Not on file documented as of this encounter Visit Diagnoses Not on filedocumented in this encounter Care Teams Sweeper Brush Maker Machine Relationship Specialty Start Date End Date Hanane Pollock NP [facility] [address] [place] [address] PCP - General 01/30/09 02/23/19 documented as of this encounter
--- OUTSIDE RECORDS SUMMARY | 2024-05-05 14:00 | XMS_ITS | Encounter Summary ---
Author Organization [facility] Address [address] [place] [address] Care Team Providers Care Sergeant Missile Crewman Name Role Phone Hanane Pollock NP Primary Care Provider [phone] Encounter Details Date Type Department Care Team (Late st Contact Info) Description 09/30/2008 Before PRISM Converted Visit (Maple) [facility] - Maple conversion [address] [place] [address] Juli Franz MD Social History Tobacco Use Types Packs/Day Years Used Date Smoking Tobacco: Never Assessed Sex and Gender Information Value Date Recorded Sex Assigned at Not on file Gender Identity Not on file Sexual Orientation Not on file documented as of this encounter Progress Notes * Juli Franz MD - 08/16/2009 0245 EST DIVISION OF INFECTIOUS DISEASE - [facility] PROGRESS/FOLLOWUP NOTE - 09/30/2008 DONNELL Calabrese presents for reevaluation of his HIV disease and his hepatitis B and C. He was last seen by me in the comprehensive care clinic on May 18, 2008. Since he was last seen, it sounds like he has done well. He has had no acute illnesses. He has followed up with the accident report clerk here in [facility]. I have corresponded with the accident report clerk on more than one occasion. There was [...] of his vision in the right eye ov er the past month and a half and he was seen by ophthalmology today. It sounds like they thought the irritation was more superficial, sounds like maybe on the cornea, and he was actually scheduled togo back and be seen again in a month. He is not having any pain in the eye but he does note blurry vision. He says his energy level has been okay. His appetite has been good. He says he thinks he had a sinus infection although he did not seek any medical [...] was called a hyperplastic polyp. He has notnoted any bright red blood in his vomitus. He says that he is not really having headaches. Does saythat he has a decreased sense of smell, but this is not new. This has been a long-term issue. No change in his hearing. He has not had any oral lesions, [...] before. He says he has about a total of three to six beers a week. Sometimes some mixed drinks. Does not sound like he is having multiple alcoholic drinks at a single sitting. He says [...] Blood pressure 128/80. Alert and appropriate, nontoxic. He does have significant alopecia and just really has [...] Bowel sounds are present, soft, nontender. His liver is not enlarged by palpation, and I cannot palpatehis spleen. He has no abdominal masses. He has no lower extremity edema. 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 He does have onychomycosis of his toenails, but does not really have tinea. His pulses are 2+bilaterally. He has decreased vibratory sense, mostly on the right distal foot. He has decreased sharp sensation from the midfoot distally bilaterally. He has an intact Achilles reflex on the left. Icould not appreciate an Achilles reflex on the right. His patellar reflexes are both decreased but are present with enhancement maneuvers. His reflexes are decreased in his upper extremities bilaterally. LABORATORY DATA Laboratory studies done in preparation for this visit. His CBC really was unremarkable. Chemistries: Hisglucose was normal. His creatinine was 1.1. His transaminases were normal. His lipid panel really was excellent. His CD4 count was 484 and 19% and his viral load was undetectable. His surg-path again hyperplastic polyp from the rectum, and in the colon he had a tiny leiomyoma. I have the reportfrom the colonoscopy. There is no mention of any hemorrhoids on exam. ASSESSMENT AND PLAN 1. HIV positive/AIDS. He has had history of Cryptococcal meningitis. He seems to be doing quite well on his present regimen. His viral load: Although [...] him off of this. Now that his viralload is again undetectable, I am reluctant to change anything. He does have a little bit of neuropathy on exam, but he really has minimal symptoms and [...] like he is motivated to do that at the present time, but did encourage him to [...] has had no hemorrhoids on his recent examI do not think he is a candidate [...] effect with thalidomide outweighs the benefit for hisalopecia and he seems to be happy not to try this intervention at the present time. Signed by Juli Franz MD 10/21/2008 06:49 Juli Franz MD - Juli Franz MD - REBEKA Job ID: [id number] Doc ID: [id number] cc: Hanane Pollock NP [employer]* documented in this encounter Plan of Treatment Not on file documented as of this encounter Visit Diagnoses Not on filedocumented in this encounter Care Teams Sergeant Missile Crewman Relationship Specialty Start Date End Date Hanane Pollock, SOM [facility] [address] [place] [address] PCP - General 01/30/09 02/23/19 documented as of this encounter
--- OUTSIDE RECORDS SUMMARY | 2024-05-05 14:00 | XMS_ITS | Encounter Summary ---
Author Organization [facility] Address [address] [place] [address] Care Team Providers Care Front Line Supervisor Name Role Phone Hanane Pollock NP Primary Care Provider [phone] Encounter Details Date Type Department Care Team (Latest Contact Info) Description 05/08/2011 15:17 EDT - 05/08/2011 23:59 EDT Hospital Encounter [facility] [address] [place] [address] Juli Franz MD Discharge Disposition: Home or [...] Code Departure Means Destination Home or Self Mc[facility] documented in this encounter Plan of Treatment Not on file documented as of this encounter Visit Diagnoses Not on filedocumented in this encounter Care Teams Front Line Supervisor Relationship Specialty Start Date End Date Hanane Pollock, SOM [facility] [address] [place] [address] PCP - General 01/30/09 02/23/19 documented as of this encounter
--- OUTSIDE RECORDS SUMMARY | 2024-05-05 14:00 | XMS_ITS | Encounter Summary ---
Author Organization [facility] Address [address] [place] [address] Care Team Providers Care Chief Order Dispatcher Name Role Phone Hanane Pollock NP Primary Care Provider [phone] Reason for Visit * Reason Onset Date Comments Medications Refill 11/20/2010 Encounter Details Date Type Department Care Team (Late st Contact Info) Description 11/20/2010 Telephone [facility] Infectious Disease - [facility] [address] [place] [address] Juli Franz MD Medications Refill Social History Tobacco Use Types Packs/Day Years Used Date Smoking Tobacco: Never Assessed Sex and Gender Information Value Date Recorded Sex Assigned at Not on file Gender Identity Not on file Sexual Orientation Not on file documented as of this encounter Miscellaneous Notes * Telephone Encounter - Ceci Fletcher RN - 11/21/2010 9054 EDT Guanakito fell on down some stairs 11/14/10. He landed on his back(tailbone) and hit hard just below his shoulder blades. After laying there a while he went to get up and felt significant pain in right ribcage making it hard to take deep breath. He went to the ED and had many x-ray films done to r/o Fx. Dx = contusions. He was given 6 tabs of Hydrocodone with Tylenol which he has finished. Suggested OTC 400-600 mg of Ibuprofen every 6 hrs. for Pain control. He will try this but would like to have more Percocet. Guanakito can be reached at home [phone]. Will consult Dr. Franz * Telephone Encounter - Lavonne Ng - 11/20/2010 1548 EDT Kory(Fernando), partner, stated Guanakito sees Dr Franz in [facility]. Stated Hanane Ganney is out today. Statedpt fell on stairs last week and went to ER. Was given about 6 pain pills and would like a refill. Believes he was given Hydrocodone. Guanakito can be reached at [phone]. documented in this encounter Plan of Treatment Not on file documented as of this encounter Visit Diagnoses Not on filedocumented in this encounter Care Teams Chief Order Dispatcher Relationship Specialty Start Date End Date Hanane Pollock, PORTFOLIO ACCOUNTANT [facility] [address] [place] [address] PCP - General 01/30/09 02/23/19 documented as of this encounter
--- OUTSIDE RECORDS SUMMARY | 2024-05-05 14:00 | XMS_ITS | Encounter Summary ---
Author Organization [facility] Address [address] [place] [address] Care Team Providers Care Associate Manager Affiliate Marketing Name Role Phone Hanane Pollock NP Primary Care Provider [phone] Encounter Details Date Type Department Care Team (Late st Contact Info) Description 05/15/2010 Results Only [facility] - [facility] ([facility]) [address], [place] [id number] Loida Miranda MD [address] [facility] [address] [place] [address] Social History Tobacco Use Types [...] Date/Time Associated Diagnosis Comments SURGICAL PATHOLOGY Routine 05/15/2010 0:00 EDT documented in this encounter Results * SURGICAL PATHOLOGY (05/15/2010 0:00 EDT) Pathology Report: SURGICAL PATHOLOGY REPORT ? Reports generated via electronic interface contain original data; ? however they are lacking the format of the original report. ? Caution should be taken when reading/interpreting unformatted reports. ? Name: ? AIELEN, KALEB P ? Accession #: ? [id number] ? : ? 1970 (Age: 40) ??M ? Collect Date: ? 05/15/2010 ? Location: ? [facility] ? Receive Date: ? 05/15/2010 ? Provider: MICHAEL KIRKPATRICK MD ? Copy to: NEW B RAMUNDO MD ? HANANE Mcconnell TANEY CATERING ATTENDANT ? LOIDA M SCRIVER MD ? Final Pathologic Diagnosis: ? Liver, right lobe, needle core biopsy: ? 1. ?Chronic hepatitis consistent with viral hepatitis. ?? See comment. ? - Minimally active (Grade 1/4). ? 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 ? Comment: ? The liver biopsy reveals a slightly lobulated architecture focally ? distorted by a few bands of bridging collagen highlighted by the trichrome ? stain. ??There is mildly increased portal fibrosis. ??The portal tracts also ? reveal mild, focal increase in lymphoplasmacytic inflammation. ??No active ? hepatocyte damage or acinar inflammation is observed. ??The iron stain reveals ?? trace intrahepatic and Kupffer cell hemosiderin deposition. ??PAS-diastase stain is negative for PAS positive globules. Party Plan Sales Unit Advisor sections of this case have been reviewed at intradepartmental consultation conference. ?? (Dr. Cuevas)/mpl ? Document reviewed and electronically signed by: ? ADRIAN C HOLT MD ? Report ??Date: 05/18/2010 17:40 ? By the signature above, the attending physician certifies that he/she has ? personally conducted a gross and/or microscopic examination of the described ? specimens and rendered or confirmed the above diagnosis. ? Specimen(s) Received: ? Right lobe ? Clinical History: ? HIV, Hepatitis B/C ? Gross Description: ? Received in formalin labelled Snbarbara, Kaleb are three lazcano-brown soft ? tissue cores ranging from 1.8 to 2.1 cm in length by 0.1 cm in diameter. ??The ?? specimen is entirely submitted in a single cassette with iron, trichrome, and ?? PAS-amylase requested. ??(Enma Patrick)/kmm ? End of Report ? [facility] 05/15/2010 05/15/2010 16: 17 EDT Michael Kirkpatrick MD PATHOLOGY ORDER ELL[facility] [address] [place] [address] documented in this encounter Visit Diagnoses Not on filedocumented in this encounter Care Teams Associate Manager Affiliate Marketing Relationship Specialty Start Date End Date Hanane Pollock, CATERING ATTENDANT [facility] [address] [place] [address] PCP - General 01/30/09 02/23/19 documented as of this encounter
--- OUTSIDE RECORDS SUMMARY | 2024-05-05 14:00 | XMS_ITS | Encounter Summary ---
Author Organization [facility] Address [address] [place] [address] Care Team Providers Care Cinder Block Maker Name Role Phone Hanane Pollock NP Primary Care Provider [phone] Encounter Details Date Type Department Care Team (Late st Contact Info) Description 05/05/2010 Orders Only [facility] Infectious Disease - [address] [address] Juli Franz MD HCV infection; Chronic active viral hepatitis B (CMS-HCC) (HCC-CMS); Human immunodeficiency virus (HIV) disease (HCC-CMS); Alcohol use; Encounter for long-term (current) use of other [...] Procedure Name Priority Date/Time Associated Diagnosis Comments IR U/S DRAINAGE Routine 05/15/2010 14:10 EDT HCV infection Chronic active viral hepatitis B (CMS-HCC) (HCC-CMS) Human immunodeficiency virus (HIV) disease (HCC-CMS) Alcohol use documented in this encounter Results * IR U/S GUIDED NEEDLE BIOPSY AND DRAINAGE (05/15/2010 14:10 EDT) Anatomical Region Laterality Modality Other 05/15/2010 14:1 0 EDT 05/16/2010 10:10 EDT Narrative 05/16/2010 10:10 EDT Ultrasound-guided liver biopsy, May 15, 2010 at 1308 hours. History: HIV. Hepatitis B. Hepatitis C. Please perform liver biopsy for histology prior to treatment for hepatitis C. Technique: Informed consent was obtained after the risks and benefits of the procedure were discussed with the patient. Moderate sedation was provided with intravenous Versed and fentanyl while continuously monitoring the patients blood pressure, heart rate, respiratory rate and pulse oxygenation. The patient's right upper quadrant was sterilely prepped and draped. Lidocaine 1% was administered to anesthetize the skin and soft tissues. Using ultrasound guidance, via a intercostal approach, a 19-gauge Cook coaxial needle was advanced into the right lobe of the liver. A total of 3 20-gauge core biopsy samples were obtained. The needle was removed and a sterile dressing was applied. The patient tolerated procedure well and there were no immediate complications. Impression: 1. Successful ultrasound guided percutaneous liver biopsy. Dr. Kirkpatrick was present for the entire procedure. I have personally reviewed the images and the above interpretation and agree with the findings. Procedure Note Scriver, Morales Zuniga MD - 05/16/2010 Ultrasound-guided liver biopsy, May 15, 2010 at 1308 hours. History: HIV. Hepatitis B. Hepatitis C. Please perform liver biopsy for histology prior to treatment for hepatitis C. Technique: Informed consent was obtained after the risks and benefits of the procedure were discussed with the patient. Moderate sedation was provided with intravenous Versed and fentanyl while continuously monitoring the patients blood pressure, heart rate, respiratory rate and pulse oxygenation. The patient's right upper quadrant was sterilely prepped and draped. Lidocaine 1% was administered to anesthetize the skin and soft tissues. Using ultrasound guidance, via a intercostal approach, a 19-gauge Cook coaxial needle was advanced into the right lobe of the liver. A total of 3 20-gauge core biopsy samples were obtained. The needle was removed and a sterile dressing was applied. The patient tolerated procedure well and there were no immediate complications. Impression: 1. Successful ultrasound guided percutaneous liver biopsy. Dr. Kirkpatrick was present for the entire procedure. I have personally reviewed the images and the above interpretation and agree with the findings. Juli Franz MD [facility] IR ORDERABLES documented in this encounter Visit Diagnoses Diagnosis HCV infection Unspecified viral hepatitis C without hepatic coma Chronic active viral hepatitis B (HCC-CMS) Viral hepatitis B without mention of hepatic coma, chronic, without mention of hepatitis delta Human immunodeficiency virus (HIV) disease (HCC-CMS) Human immunodeficiency virus [HIV] disease Alcohol use Reserved for inherently not codable concepts WITHOUT codable children Encounter for long-term (current) use of other medications documented in this encounter Care Teams Cinder Block Maker Relationship Specialty Start Date End Date Hanane Pollock NP [facility] [address] [place] [address] PCP - General 01/30/09 02/23/19 documented as of this encounter
--- OUTSIDE RECORDS SUMMARY | 2024-05-05 14:00 | XMS_ITS | Encounter Summary ---
Author Organization [facility] Address [address] [place] [address] Care Team Providers Care Vp Corporate Development Name Role Phone Hanane Pollock BOTTLE BOOTH ATTENDANT Primary Care Provider [phone] Reason for Visit * Reason Onset Date Comments Medications Refill 06/23/2012 Encounter Details Date Type Department Care Team (Late st Contact Info) Description 06/23/2012 Refill [facility] Infectious Disease - [facility] [address] [place] [address] New Franz MD Medications Refill Social History Tobacco [...] Encounter - New Mix RN - 06/23/2012 1637 EST Notified partner Fernando that Jeane from [facility] notified [facility] that Guanakito could have 1 month of refills and Hanane Pollock will order more refills. Fernando stated he sees Dr. Franz tommorebeca and will ask for more refills. Also mentioned when the pharmacy gives the last refill, if they sent the office a fax for more fills, could be smoother with no lapse in taking medication. NEW MIX RN * Telephone Encounter - Beena Wayne - 06/23/2012 6601 EST Partner Fernando calling saying he cannto reach Hanane Pollock, and that Guanakito needs refills on all of his medication . He did not have a complete listing of what that would be. Uses [facility] pharmacy. Fernando would like a call back when this has been called in at [phone]. Fernando states he needs thiscalled in today. documented in this encounter Plan of Treatment Not on file documented as of this encounter Visit Diagnoses Not on filedocumented in this encounter Care Teams Vp Corporate Development Relationship Specialty Start Date End Date Hanane Pollock, BOTTLE BOOTH ATTENDANT [facility] [address] [place] [address] PCP - General 01/30/09 02/23/19 documented as of this encounter
--- OUTSIDE RECORDS SUMMARY | 2024-05-05 14:00 | XMS_ITS | Encounter Summary ---
Author Organization [facility] Address [address] [place] [address] Care Team Providers Care Business Analyst Project Manager Name Role Phone Hanane Pollock NP Primary Care Provider [phone] Encounter Details Date Type Department Care Team (Late st Contact Info) Description 08/05/2013 Orders Only [facility] Infectious Disease - [address] [address] Juli Franz MD Social History Tobacco Use [...] Diagnosis Comments HIV 1 RNA QUANTITATION Routine 3 8:26 EST COMPLETE BLOOD COUNT AND DIFFERENTIAL Routine 07/09/2013 8:26 EST PHOSPHORUS Routine 07/09/2013 8:26 EST CK Routine 07/09/2013 8:26 EST LIPID PROFILE (INCLUDES CHOLESTEROL, TRIGLYCERIDES, HDL, LDL) Routine 07/09/2013 8:26 EST COMPREHENSIVE METABOLIC PANEL (CMP) Routine 07/09/2013 8:26 EST documented in this encounter Results * PHOSPHORUS (07/09/2013 8:26 EST) Phosphorus, External 2.9 2.5 - 4.9 mg/dL [facility] Blood specimen (specimen) 07/09/2013 8:26 EST Juli Franz MD CHEMISTRY & BLOOD GA S ORDERABLES Performing Organization Address City/[facility]/ZIP Co de Phone Number [facility] * HIV 1 RNA QUANTITATION (07/09/2013 8:26 EST) HIV1 RNA, External Detected Undetected copies/mL [facility] Comment:Test performed at [facility]. See scan media in Prism Blood specimen (specimen) 07/09/2013 8:26 EST Juli Franz MD CHEMISTRY & BLOOD GA S ORDERABLES Performing Organization Address City/[facility] Co de Phone Number [facility] * CK (07/09/2013 8:26 EST) CK, External 105 39 - 308 U/L [facility] Blood specimen (specimen) 07/09/2013 8:26 EST Juli Franz MD CHEMISTRY & BLOOD GA S ORDERABLES Performing Organization Address City/[facility] Co de Phone Number [facility] * (ABNORMAL) LIPID PROFILE (INCLUDES CHOLESTEROL, TRIGLYCERIDES, HDL, LDL) (07/09/2013 8:26 EST) Cholesterol, External 149 50 - 200 mg/dL [facility] Triglycerides , External 347(A) 15 - 150 mg/dL [facility] HDL, External 20(A) 40 - 60 mg/dL [facility] LDL, External 76 mg/dL [facility] Chol/HDL Ratio, External Not given [facility] Fasting?, External Unknown [facility] Comment:See scans for furthe r interpretation. Blood specimen (specimen) 07/09/2013 8:26 EST Juli Franz MD CHEMISTRY & BLOOD GA S ORDERABLES [facility] * (ABNORMAL) HEMAGRAM AND DIFFERENTIAL (07/09/2013 8:26 EST) WBC, External 8.59 4.4 - 10.8 k/cumm [facility] RBC, External 4.57 4.50 - 6.00 m/cumm [facility] Hemoglobin, External 15.8 13.5 - 17.5 g/dL [facility] HCT, External 43.6 40.0 - 50.0 % [facility] MCV, External 95.4(A) 80 - 95 fL [facility] MCH, External 34.6(A) 27.0 - 33.0 pg [facility] MCHC, External 36.2(A) 32.0 - 36.0 % [facility] PLT, External 193 130 - 400 x1000/uL [facility] RDW-CV, External 13.7 11.8 - 14.1 % [facility] Neutrophils, External 52.2 40 - 74 % [facility] Lymphocytes, External 36.0 19 - 44 % [facility] Monocytes, External 7.3 3.0 - 10.0 % [facility] Eosinophils, External 3.8 1 - 7.0 % [facility] Basophils, External 0.6 0.0 - 2.0 % [facility] ABS Neutrophils, External 4.48 1.2 - 6.7 k/cumm [facility] ABS Lymphs, External 3.09 1.2 - 3.4 k/cumm [facility] ABS Monocytes, External 0.63 0.11 - 0.7 k/cumm [facility] ABS Eosinophils, External 0.33 0 - 0.7 k/cumm [facility] ABS Basophils, External 0.05 0.0 - 0.2 k/cumm [facility] Comment:See scans for furthe r interpretation. Blood specimen (specimen) 07/09/2013 8:26 EST Juli Franz MD PACKAGES & DNA PROBE ORDERABLES [facility] * (ABNORMAL) COMPREHENSIVE METABOLIC PANEL (CMP) (07/09/2013 8:26 EST) GFR, Calculated, External >=60.00 >=60.00 mL/min/1. 73m2 [facility] Glucose, Serum, External 81 70 - 100 mg/dL [facility] Albumin, External 4.2 3.4 - 5.0 g/dL [facility] Total Alkaline Phosphatase, External 78 46 - 116 U/L [facility] ALT, External 49 12 - 78 U/L [facility] AST, External 20 15 - 37 U/L [facility] BUN, External 17 7 - 18 mg/dL [facility] Calculated Calcium, External Not given [facility] Calcium, External 8.9 8.5 - 10.1 mg/dL [facility] Chloride, External 106 98 - 107 mmol/L [facility] CO2, External 28.8 21.0 - 32.0 mmol/L [facility] Creatinine, External 1.2 0.8 - 1.3 mg/dL [facility] Fasting?, External Unknown [facility] Potassium, External 4.6 3.5 - 5.1 mmol/L [facility] Sodium, External 144 136 - 145 mmol/L [facility] Total Protein, External 6.9 6.4 - 8.2 g/dL [facility] Bilirubin, Total, External 1.49(A) 0.2 - 1.0 mg/dL [facility] Comment:See scans for furthe r interpretation. Blood specimen (specimen) 07/09/2013 8:26 EST Juli Franz MD CHEMISTRY & BLOOD GA S ORDERABLES [facility] documented in this encounter Visit Diagnoses Not on filedocumented in this encounter Care Teams Business Analyst Project Manager Relationship Specialty Start Date End Date Hanane Pollock, HEAD SCHOOL CUSTODIAN [facility] [address] [place] [address] PCP - General 01/30/09 02/23/19 documented as of this encounter
--- OUTSIDE RECORDS SUMMARY | 2024-05-05 14:00 | XMS_ITS | Encounter Summary ---
Author Organization [facility] Address [address] [place] [address] Care Team Providers Care Special Education Supervisor Name Role Phone Hanane Pollock NP Primary Care Provider [phone] Encounter Details Date Type Department Care Team (Late st Contact Info) Description 01/27/2008 Before PRISM Converted Visit ([facility]) [facility] - Maple conversion [address] [place] [address] Juli Franz MD Social History Tobacco Use Types Packs/Day Years Used Date Smoking Tobacco: Never Assessed Sex and Gender Information Value Date Recorded Sex Assigned at Not on file Gender Identity Not on file Sexual Orientation Not on file documented as of this encounter Progress Notes * Juli Franz MD - 09/19/2009 1657 EST DIVISION OF INFECTIOUS DISEASE - [facility] PROGRESS/FOLLOWUP NOTE - 01/27/2008 DONNELL Calabrese presents for reevaluation of his HIV disease/AIDS. He was last seen by me in the comprehensive care clinic on October 07, 2007. Since he was last seen it sounds like in general, he has been doingokay. It does not sound like he has had any acute illnesses since he was last seen. Major issues are that he has had less problems with the nausea that he had been experiencing in the morning. He said he has only had about one or two episodes of the severe nausea, feeling like he had to vomit. The other new complaint is that he is having this pinching sensation in his toes, not really describing numbness. It sounds more like pain. Not having any similar symptoms in his hands. His major complaint is that his energy level is just poor. He really gets spent very quickly. He cannot really do muchwork at all and even has not been fishing and doing his usual activities as much. His appetite has been okay. He really denies any problems with headache. He has seen the mechanical operator recently. His visionis stable. He has not had any problems with [...] No urinary complaints. No problems with new rashes, andno new joint complaints. He is still smoking a pack and a half a day, and he sayshe has been using alcohol very infrequently. He [...] hemorrhages. Pupils were equal. No oral lesions. Natali had his anterior tooth in the frontal on the lower jaw removed, but the gum is healthy and has healed well. No cervical or supraclavicular lymphadenopathy. His lungs were clear to auscultation and percussion. Cardiac exam reveals a regular rhythm. Abdomen: Bowel sounds are present, soft, nontender, no hepatosplenomegaly or masses appreciated. Extremities: He has the chronic abnormal nails, which really looks like clubbing and they are discolored, but no new findings. He has no edema. [...] well. His viral load remains undetectable. His [id number] is stable and he has really not had evidence of significant toxicities, except that now with the complaint of pinching in his toes and the finding on neurologic examination. I really do think he has peripheral neuropathy. In the past I thought thiscould be related to his alcohol. It could be related to his HIV or to his Zerit. We had wanted to get him off the Zerit before, but we really did not think that we had signifi cant options. I guess we could stop the [...] adding abacavir. For now he is really noteager to change his meds, as he thinks he has been quite stable and he is feeling reasonably well and I think that is good. There is no urgency, but I do think he may be a little bit more symptomaticin terms of his neuropathy. 2. Depression. He does not think he is depressed, but he is on Wellbutrin and seems to be tolerating this well. 3. Tobacco use. He is really [...] he really has decreased the frequency of his alcohol use. 5. Chronic hepatitis. He has both hep C and hep B. He is on Viread and Epivir, in terms of his hep B and we have not felt that he was a candidate for treatment of his hepatitis C, and he really was not interested in this in the past, but we [...] and a CPK. In addition, will get [id number] screen at that time, and then at the time of his next visit may consider changing his antiretroviral regimen. 9. Alopecia - forgot to mention that he still has the areas of alopecia on the scalp without evidence of progression. Signed by Juli Franz MD 03/01/2008 14:30 Juli Franz MD - Juli Franz MD - DD Job ID: [id number] Doc ID: [id number] cc: Hanane Pollock NP documented in this encounter Plan of Treatment Not on file documented as of this encounter Visit Diagnoses Not on filedocumented in this encounter Care Teams Special Education Supervisor Relationship Specialty Start Date End Date Hanane Pollock NP [facility] [address] [place] [address] PCP - General 01/30/09 02/23/19 documented as of this encounter
--- OUTSIDE RECORDS SUMMARY | 2024-05-05 14:00 | XMS_ITS | Encounter Summary ---
Author Organization [facility] Address [address] [place] [address] Care Team Providers Care Oil Well Service Operator Helper Name Role Phone Hanane Pollock NP Primary Care Provider [phone] Reason for Visit * Reason Comments Follow-up Encounter Details Date Type Department Care Team ([facility] st Contact Info) Description 10/28/2012 9:45 EDT Office Visit [facility] Infectious Disease [address] [address] Juli Franz MD AIDS (acquired immune deficiency syndrome) (CMS-HCC) (Primary Dx); Chronic active type B [...] Cap by mouth daily. 30 Cap 3 10/28/2012 04/06/2013 ritonavir (NORVIR) 100 mg tabletIndications:AIDS (acquired immune deficiency syndrome) (HCC-CMS) Take 1 Tab by mouth every 24 hours. 30 Tab 3 10/28/2012 04/06/2013 lamiVUDine (EPIVIR) 300 mg tabletIndications:AIDS (acquired immune deficiency syndrome) (HCC-CMS) Take 1 Tab by mouth daily. 30 Tab 3 10/28/2012 04/06/2013 tenofovir (VIREAD) 300 mg tabletIndications:AIDS (acquired immune deficiency syndrome) (HCC-CMS) Take 1 Tab by mouth daily. 30 Tab 3 10/28/2012 04/06/2013 Raltegravir (ISENTRESS) 400 mg TabIndications:AIDS (acquired immune deficiency syndrome) (HCC-CMS) Take 1 Tab by mouth 2 times daily. 60 Tab 3 10/28/2012 04/06/2013 documented in this encounter Progress Notes * Beena Wayne - 10/29/2012 0833 EDT Faxed lab orders to [facility] lab [phone] * Juli Franz MD - 10/28/2012 0949 EDT [facility] FOLLOWUP NOTE DOS 10/28/2012 Last seen: 06/03/2012 [...] few days. He reports that it is mild and is not interfering with his ability to do things. He denies any change in his vision. No nausea. No photophobia. No fevers, chills, night sweats. He [...] tolerated the meds well. His viral load is just detectable. His CD4 count is stable to improved. I was concerned that his Cr was up a bit on last labs but it is down again with his present blood work. His phosphorus however is also down. As his present medications are not [...] I would not do this unless he isreally motivated to quit. 3. Depression - continues [...] HAV vaccine. We did not have HAV vaccineavailable but will try to obtain this for his next appointment. Tdap was given in 09/2011 6. 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 CXR done after his last visit was stable. If any change may need repeat CT of thechest. 7. VICK - still present but mild [...] End Da te Raltegravir (ISENTRESS) 400 mg TabIndications:AIDS (acquired immune deficiency syndrome) (HCC-CMS) Take 1 Tab by mouth 2 times daily. Reorder 06/26/2012 10/28/2012 tenofovir (VIREAD) 300 mg tabletIndications:AIDS (acquired immune deficiency syndrome) (HCC-CMS) Take 1 Tab by mouth daily. Reorder 06/26/2012 10/28/2012 lamivudine (EPIVIR) 300 mg tabletIndications:AIDS (acquired immune deficiency syndrome) (HCC-CMS) Take 1 Tab by mouth daily. Reorder 06/26/2012 10/28/2012 ritonavir (NORVIR) 100 mg tabletIndications:AIDS (acquired immune deficiency syndrome) (HCC-CMS) Take 1 Tab by mouth every 24 hours. Reorder 06/26/2012 10/28/2012 atazanavir (REYATAZ) 300 mg capsuleIndications:AIDS (acquired immune deficiency syndrome) (HCC-CMS) Take 1 Cap by mouth daily. Reorder 06/26/2012 10/28/2012 documented as of this encounter Care Teams Oil Well Service Operator Helper Relationship Specialty Start Date End Date Hanane Pollock NP [facility] [address] [place] [address] PCP - General 01/30/09 02/23/19 documented as of this encounter
--- OUTSIDE RECORDS SUMMARY | 2024-05-05 14:00 | XMS_ITS | Encounter Summary ---
Author Organization [facility] Address [address] [place] [address] Care Team Providers Care Intranet Specialist Name Role Phone Hanane Pollock NP Primary Care Provider [phone] Encounter Details Date Type Department Care Team (Late st Contact Info) Description 09/10/2006 Before PRISM Converted Visit (Maple) [facility] - Maple conversion [address] [place] [address] Juli Franz MD Social History Tobacco Use Types Packs/Day Years Used Date Smoking Tobacco: Never Assessed Sex and Gender Information Value Date Recorded Sex Assigned at Not on file Gender Identity Not on file Sexual Orientation Not on file documented as of this encounter Progress Notes * Juli Franz MD - 09/19/2009 1701 EST DIVISION OF INFECTIOUS DISEASE - [facility] PROGRESS/FOLLOWUP NOTE - 10/01/2006 DONNELL Calabrese presents for reevaluation of his HIV disease. He was last seen by me in the comprehensive care clinic on September 10, 2006. The blood work done in preparation for that visit revealed an elevated viral load and we were concerned about development of resistance. We had a repeat viral load obtained with reflex to resistance testing andhe comes in [...] well despite the fact that he has been working. He is drinking. He said that he has had seven to eight beers since he was last seen and he is still smoking anywhere between a pack and a half and two packs of cigarettes a day. He thinks that the alopecia may be a bit worse and he complains of a chronic rash on his right forearm that has not significantly changed. He is not having any gastrointestinal symptoms. OBJECTIVE On physical examination, his blood pressure was 138/74, weight 71 kg. Nontoxic, no acute distress. He has no oral lesions. Exam only significant for the fact that he has some pink-purple papules on the anterior surface of his left forearm, just proximal to the wrist. They are clearly excoriated. I do not see any similar lesions elsewhere. Otherwise, no acute rash. He has good range of motion of his shoulders. I did not remove the bandage from the left third digit as this was just placed earlierthis morning. Exam is otherwise unremarkable. The area in [...] cryptococcal meningitis. His CD4 count has been consistently greater than 200. The last one was greater than 400. At the time of his last visit we were concerned as his viral load was as high as about 900 copies and we did not have an explanation for this. Onreview of his history today, it seems that he had an intraarticular injection in his left shoulder about three weeks before that last blood work and I wonder if that could be playing some role in theblip in his viral load. I am encouraged that his viral load is back down and undetectable and wouldplan to continue his present antiretroviral regimen of [...] the timing of his last tetanus shot. Natali been followed since 2000. We donot have a record of a tetanus shot. He says that he has not been to the local emergency room for any injuries that may require a tetanus shot since the time he hasbeen back in [place]. I think that he should be reimmunized, but we will also [facility] to ensure that he has not had a tetanus shot there. They looked in the medical record there and it appears that he has no evidence of that. We can also check the records at [facility], although we do have copiesof [...] He continues to use alcohol. I restressed the need for him to discontinue alcohol use in the face of his cirrhosis. 6. Rash. This is very similar to the rash that he had on the extensor surfaces of his hands, which was attributed to a photosensitivity from one of his medications. This is a little bit different as it is on the extensor aspect of his forearm, but does look fairly similar. It is quite localized. Kenneth want to go see dermatology and I think would have a low threshold to have these biopsied. By history, they have been fairly chronic and I do not think that they are spreading. He has no systemicsymptoms at the present time. 7. Tobacco use. Encouraged him again to try to quit smoking. Offered any nicotine replacement products that may help him in this pursuit. Signed by Juli Franz MD 12/26/2006 06:28 Sandy Ortega MD Juli Franz MD - Nelly Franz MD A - SK Job ID: [id number] Document ID: [id number] cc: Hanane Pollock NP cc: Hanane Pollock NP * Juli Franz MD - 09/19/2009 1701 EST DIVISION OF INFECTIOUS DISEASE - [facility] PROGRESS/FOLLOWUP NOTE - 09/10/2006 [facility] DONNELL Calabrese presents for reevaluation of his HIV disease/AIDS. He was last seen by me in the comprehensive care clinic on April 30, 2006. He actually stopped in briefly with an acute complaint, I believethis was in June, complaining of new focal alopecia. We made a plan at that time to discontinuehis fluconazole. Otherwise he has remained on the same medication. He presents now for reevaluation. He says he has not had any acute illnesses since he was last seenin April. He still has occasionalvomiting in the morning when he has a significant cough, but otherwise has been doing well. His appetite has been good his energy level has been good. He continues to smoke two packs per day. He continues to have issues with some blurry vision but he has followed with ophthalmology regularly. He has not had any oral lesions. No difficulty swallowing or pain withswallowing. No headaches. No respiratory complaints. He has had some recent abdominal soreness, butthis occurred after he fell while he was skiing and actually is feeling better. Again, really not having any problems with nausea and diarrhea. No genitourinary complaints. No problems with new rashes. He has some numbness in his toes. This seems to come and go. Nothing painful or persistent. He ishaving night sweats on a fairly regular basis and thinks he may be having fevers. He says he is taking his medications regularly, not missing any doses. In addition, [...] His temperature was 98.3. Pupils are equal and reactive. Sclerae nonicteric. Conjunctivae pink. He had no oral lesions. He has no cervical or supraclavicular lymphadenopathy. His lungs are clear to auscultation and percussion. Cardiac exam reveals a regular rhythm without murmurs, rubs or gallops. Abdominal exam: Bowel sounds are present. Hisabdomen does look a little bit distended. I thought I couldjust appreciate a spleen tip. His liver is not enlarged by percussion. He really has no tenderness. I cannot appreciate any masses. Extremities are without edema. He has the chronic nail changes. They are almost greenish and thickened in color and he does have clubbing of his fingers which is chronic. In terms of skin he does have area ofalopecia on his scalp, really mostly left- sided. A big one in the posterior aspect of the left sideof his head and then one more superiorly. I really cannot appreciate hair follicles at that site. His hair otherwise normal male pattern baldness. He really does not have any loss of the hair elsewhere on his body. In terms of his skin he does have some viv-nm-xshde colored papules on the flexor aspect of his wrist, which have some element of excoriation and may be some light scale, but really nodiffuse rash. In terms of neurologic examination his motor strength is 5/5. His reflexes are decreased bilaterally throughout, 1+ with enhancement maneuvers in the lower extremities. Laboratory studies done in preparation for this visit. His viral load was detectable at 868 copies.His CD4 count stable at 494 and 16%. CBC really unremarkable. His creatinine was 0.9. Chemistries otherwise unremarkable. He had normal transaminases. His lipid panel: His triglycerides were 202 withan HDL of 30, LDL of 84. ASSESSMENT/ PLAN 1. HIV positive/AIDS. He has had a history of cryptococcal meningitis. We stopped his fluconazole in July. He has not had any symptoms to suggest any relapse of his cryptococcal disease. I have tosay the lesions in the right wrist area [...] has not had any recent vaccines or inte rcurrent illness that might account for an increase in his viral load. Would like to repeat this next month. With his viral load, will ask for reflex to resistance testing if his viral load is greater than 1000. Would have him follow up after we have those results. Would like to make changes soonerthan later in his regimen. I guess my major concern would be that he has lost his NNRTI and that hewould have to be on a PI based regimen. But for now will leave him on his present four drug regimenand await his repeat viral load. I have to say the good news is that his CD4 count is in a reasonable range at the present time, so would like to make changes sooner than later to prevent any furtherdeterioration in his immune system. 2. Hepatitis. He has [...] Viread and Epivir. We have not felt kiya t he has been a good candidate for hepatitis C therapy, and again that was a minor component of thehepatic inflammation on his past liver biopsy. He [...] do would be to get him to quitsmoking, and I would not treat his lipids at the present time. Encouraged him to think about tryingthe patch and encouraged his partner to quit [...] months, and will see if we start to see any grow back, but it soundslike he would like to be seen by dermatology and I think that is reasonable to see if they have anything else to add. It may be worth biopsying the area to see if there are follicles there that could be stimulated. I have to say on exam it really lookslike he hasloss of follicles at the site. 5. Prophylaxis. Again his CD4 count has stayed up, although the percent is somewhat low. I think enrike consider stopping his Dapsone. We did not do that today but I think we can consider that at the timeof his next visit. I guess it does depend on if we have problems controlling his viral load and we are concerned about further decrease in his CD4 count in the near future. Signed by Juli Franz MD 11/12/2006 06:09 Sandy Ortega MD Juli Franz MD - Nelly Franz MD P - DD Job ID: [id number] Document ID: [id number] cc: [facility] documented in this encounter Plan of Treatment Not on file documented as of this encounter Visit Diagnoses Not on filedocumented in this encounter Care Teams Intranet Specialist Relationship Specialty Start Date End Date Hanane Pollock NP [facility] [address] [place] [address] PCP - General 01/30/09 02/23/19 documented as of this encounter
--- OUTSIDE RECORDS SUMMARY | 2024-05-05 14:00 | XMS_ITS | Encounter Summary ---
Author Organization [facility] Address [address] [place] [address] Care Team Providers Care Dietetic Intern Name Role Phone Hanane Pollock NP Primary Care Provider [phone] Encounter Details Date Type Department Care Team (Late st Contact Info) Description 07/21/[address] [facility] INFECTIOUS DISEASE [address], [place] [address] Juli Franz MD AIDS (acquired immune deficiency syndrome) ([facility]) (Primary Dx) Social History Tobacco Use Types [...] 300 mg tabletIndications:AIDS (acquired immune deficiency syndrome) ([facility]) Take 1 Tab by mouth daily. 30 Tab 3 07/21/2013 11/17/2013 ritonavir (NORVIR) 100 mg tabletIndications:AIDS (acquired immune deficiency syndrome) ([facility]) Take 1 Tab by mouth every 24 hours. 30 Tab 3 07/21/2013 11/17/2013 Raltegravir (ISENTRESS) 400 mg tabletIndications:AIDS (acquired immune deficiency syndrome) ([facility]) Take 1 Tab by mouth 2 times daily. 60 Tab 3 07/21/2013 11/17/2013 atazanavir (REYATAZ) 300 mg capsuleIndications:AIDS (acquired immune deficiency syndrome) (HCC-CMS) Take 1 Cap by mouth daily. 30 Cap 3 07/21/2013 11/17/2013 lamiVUDine (EPIVIR) 300 mg tabletIndications:AIDS (acquired immune deficiency syndrome) (HCC-CMS) Take 1 Tab by mouth daily. 30 Tab 3 07/21/2013 11/17/2013 documented in this encounter Plan of Treatment Not on file documented as of this encounter Visit Diagnoses Diagnosis AIDS (acquired immune deficiency syndrome) (HCC-CMS)- Primary Human immunodeficiency virus [HIV] disease documented in this encounter Discontinued Medications Medication Sig Discontinue Reason Start Date End Da te lamiVUDine (EPIVIR) 300 mg tabletIndications:AIDS (acquired immune deficiency syndrome) (HCC-CMS) Take 1 Tab by mouth daily. Reorder 04/06/2013 07/21/2013 atazanavir (REYATAZ) 300 mg capsuleIndications:AIDS (acquired immune deficiency syndrome) (HCC-CMS) Take 1 Cap by mouth daily. Reorder 04/06/2013 07/21/2013 Raltegravir (ISENTRESS) 400 mg tabletIndications:AIDS (acquired immune deficiency syndrome) (HCC-CMS) Take 1 Tab by mouth 2 times daily. Reorder 04/06/2013 07/21/2013 ritonavir (NORVIR) 100 mg tabletIndications:AIDS (acquired immune deficiency syndrome) (HCC-CMS) Take 1 Tab by mouth every 24 hours. Reorder 04/06/2013 07/21/2013 tenofovir (VIREAD) 300 mg tabletIndications:AIDS (acquired immune deficiency syndrome) (HCC-CMS) Take 1 Tab by mouth daily. Reorder 04/06/2013 07/21/2013 documented as of this encounter Care Teams Dietetic Intern Relationship Specialty Start Date End Date Hanane Pollock NP [facility] [address] [place] [address] PCP - General 01/30/09 02/23/19 documented as of this encounter
--- OUTSIDE RECORDS SUMMARY | 2024-05-05 14:00 | XMS_ITS | Encounter Summary ---
Author Organization [facility] Address [address] [place] [address] Care Team Providers Care Cable Worker Helper Name Role Phone Hanane Pollock NP Primary Care Provider [phone] Encounter Details Date Type Department Care Team (Late st Contact Info) Description 05/23/2011 Results Only [facility] Interventional Radiology - [address] [address] Jeremi Simmons PA-C [address] [facility], [address] [place] [address] Social History Tobacco Use Types [...] Procedure Name Priority Date/Time Associated Diagnosis Comments CYTOPATHOLOGY Routine 05/23/2011 0:00 EST documented in this encounter Results * CYTOPATHOLOGY (05/23/2011 0:00 EST) Pathology Report: CYTOPATHOLOGY REPORT Reports generated via electronic interface contain original data; however they are lacking the format of the original report. Caution should be taken when reading/interpreti ng unformatted reports. Name: ? KALEB CEDILLO ? Accession #: ? [id number] : ? 1970 (Age: 41) ??M ?Collect Date: ? 05/23/2011 Location: ? [facility] ? Receive Date: ? 05/23/2011 Provider: ? JEREMI CORNEJO Copy to: ?HANANE CHRISTIANSON MD ? CYTOLOGIC DIAGNOSIS: ? 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 ??See comment. ? COMMENT: ? This case has been discussed with Dr. Juli Franz on 05/24/11. ??There is no evidence of malignancy in this sampling of the right lung mass. ??There is abundant necrosis present and within the necrosis, there are relatively frequent, variably sized acid fast bacilli highlighted with the acid fast stain. There is no evidence of fungal organisms on fungal stain. ??The background shows a mixture of a small amount of lymphocytes, neutrophils and histiocytes with the addition of reactive bronchial cells and mesothelial cells sampled. ??The cell block is relatively paucicellular and shows a small amount of necrotic material. This case has been reviewed by Dr. Sathish Cabrera who concurs with the presence of acid fast bacilli. ??Identification of the definitive organism is pending culture. ??Please refer to microbiology report for further diagnostic information. ??(Dr. Palomares)/[facility] Document reviewed and electronically signed by: ? ADRIAN PALOMARES MD Report Date: ??05/27/2011 17:31 By the signature above, the attending physician certifies that he/she has personally conducted a gross and/or microscopic examination of the described specimens and rendered or confirmed the above diagnosis. Specimen Type: ? Lung, Fine Needle Aspiration, Right apex Clinical History: ?Tobacco user who had ongoing cough and had CT which showed a right lung nodule 2.6 x 1.3cm ? Rapid Interpretation: ? Lung, right, apical nodule (2.6 x 1.3 cm) CT guided fine needle aspiration: Evaluation episode # 1: ? Passes 1-3: ? Paucicellular, blood and scant inflammatory cells. ?? Evaluation episode # 2: ? Passes 4-6: ? Necrotic material and scant inflammatory cells. ? All needles rinsed in RPMI. Evaluation episode # 3: ? Passes 7-8: ? Blood, scant cellularity. Additional dedicated passes in culture ? media. ?? Evaluation episode #4: ? Passes 9-10: ? Blood and groups of benign mesothelial cells. ? Additional dedicated passes in culture media. Evaluation episode # 5: ? Passes 11-12: ? Necrotic material, scant inflammatory cells and groups of benign ? mesothelial cells. ?Additional dedicated passes in culture media. (Dr. Isaiah Cuevas; 05/23/11 at 12:15 PM) I personally reviewed the slides and agree with the diagnoses. (Dr. Juana Palomares; 05/23/11 at 12:18 PM) Gross Description: ? 15 fixed prepared slides and 5 air dried prepared slides were received. ? End of Report [facility] 05/23/2011 05/23/2011 12: 18 EST Jeremi Simmons PA-C PATHOLOGY ORDERAB LES Performing Organization Address City/State/[facility] Co de Phone Number [facility] [address] [place] [address] documented in this encounter Visit Diagnoses Not on filedocumented in this encounter Care Teams Cable Worker Helper Relationship Specialty Start Date End Date Hanane Pollock, SOM [facility] [address] [place] [address] PCP - General 01/30/09 02/23/19 documented as of this encounter
--- OUTSIDE RECORDS SUMMARY | 2024-05-05 14:00 | XMS_ITS | Encounter Summary ---
Author Organization [facility] Address [address] [place] [address] Care Team Providers Care Licensed Practical Nurse Name Role Phone Hanane Pollock NP Primary Care Provider [phone] Encounter Details Date Type Department Care Team (Late st Contact Info) Description 10/07/2007 Before PRISM Converted Visit (Maple) [facility] - Maple conversion [address] [place] [address] Juli Franz MD Social History Tobacco Use Types Packs/Day Years Used Date Smoking Tobacco: Never Assessed Sex and Gender Information Value Date Recorded Sex Assigned at Not on file Gender Identity Not on file Sexual Orientation Not on file documented as of this encounter Progress Notes * Juli Franz MD - 09/19/2009 1651 EST DIVISION OF INFECTIOUS DISEASE [facility] PROGRESS/FOLLOWUP NOTE - 10/07/2007 DONNELL Calabrese presents for reevaluation of his HIV disease/AIDS. He was last by me in the comprehensive care clinic on April 22, 2007. Since he was last seen he says that he has not had any acute illnesses. Really, his only complaint is that he has been having some episodes of, what he describes as chestpain on the left side. It is really in the left pectoral area. He describes it as kind of a achy cramp. It feels like it is more superficial, not deep, in his chest. It does not radiate, it is not related to activity, per se. He says it can come on at any time; when it starts it lastsfor about a day or two. When he does have it he says it is worse with coughing and with deep inspiration. It also can be worse with movement of his left upper extremity. He says that he does note that he has had more reflux symptoms and thinks that they are quite active when he is having this sensation in his left chest. There really are no other associated complaints. No diaphoresis, no shortness of breath, no palpitations, no dizziness during this time. He really denies any acute respiratory symptoms. It does not sound like he feels that he has had any worsening cough, no shortness of breath. He says he has been taking his medications regularly and not missing any doses. He says his energy level has been okay. His appetite has been good, not really complaining of headaches, not complaining of any change in his vision, no oral lesions, dysphagia or odynophagia. He does feel that he swelled up some and does think that maybe that has been related to his eating patterns but still complaining thathis abdomen is bigger. He is still smoking, but not quite as much; smoking less than one pack a day. He did try the Chantix but developed pretty significant GI symptoms with nausea and vomiting and then also had some left-sided abdominal pain with it. This all resolved after he discontinued the Chantix and he has been able to decrease the amount that he has been smoking, but has not been able to stop completely. Still using alcohol, about a beer a day but not drinking every day. Not really complaining of any urinary symptoms. No problems with diffuse rash but does complain of bumps along the hairline posteriorly, whichhe does try to squeeze and then they become quite aggravated and swollen. He really has not noted improvement in his alopecia. He denies any problems with fevers, chills or night sweats. He says his depression has been well controlled. He has been sleeping well. Of note, his father the end of April and [place]an[place]ito had been under a significant amount of stress. He had been the primary person to help care for his mother who lives in [place] and who does not drive. He has been active in helping her to clean out the house. He made all of the arrangements and clearly has been through quite a bit of stress related to all of this. CURRENT MEDICATIONS 1. Zerit 40 twice a day. 2. Sustiva 600 once a day. 3. Epivir 300 once a day. 4. Viread 300 once a day. 5. Wellbutrin 100 mg twice daily. OBJECTIVE On physical examination his weight was 75.2 kg. He was afebrile at 97.7. Nontoxic in no acute distress. Alert and appropriate. He still has patches of alopecia. In the hairline posteriorly, he does have some scattered erythematous papules. They range in size and are in no particular pattern. There is no central pustule or vesicle. No rash on his scalp, or on his neck. Really, no rash on his trunkanteriorly or posteriorly. Sclerae nonicteric, conjunctivae pink. He has no oral lesions. No cervical or supraclavicular lymphadenopathy. His lungs are clear to auscultation and percussion. Cardiac exam reveals a regular rhythm without murmur, rubs, or gallops. Abdomen: He does looklike his abdomenis more full and bowel sounds are present. His abdomen is soft, nontender, with no hepatosplenomegaly and I cannot appreciate fluid waves. He has no palpable edema in his legs. He has the chronic nail changes and the clubbing. No acute rash. LABORATORY DATA Laboratory studies done in preparation for this visit. Chemistries: His creatinine was 0.9. He had a lipid panel with a cholesterol of 159, triglycerides of 160 and HDL of 30 and an LDL of 99. His AST and ALT were 24 and 68. Hisalk phos was 118. His CBC was significant for a white count of 12,000 wi th a fairly normal differential. His hemoglobin was 18 and his platelet count was 212,000. His viral load was undetectable at less than 50 copies and his CD4 count was 372 and 18% ASSESSMENT AND PLAN 1. 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 He has done well on his present regimen. Ideally, I guess I would like to get him off the Zerit. I am wondering if he is having some bodychanges with increased abdominal girth. He does not really have any significant marked wasting in the arms and the legs and so I do not have a big incentive to try to get him off the Zerit. He has don e well on this regimen. He has tolerated it well. He has taken it regularly and I really do not want to make changes that may interfere with his adherence. His viral load remains undetectable and hisCD4 count is quite good and stable, so would plan to continue his present regimen. He should have repeat blood work in about three or 4 months and follow up with me in the comprehensive care clinic at that time. 2. Chronic hepatitis. He is both hepatitis C and hepatitis B. He also continues to use alcohol. He had a biopsy in the biopsy in the past which did have evidence of early cirrhosis. I am concerned about his increased abdominal girth, that perhaps he is developing ascites. I cannot appreciate a fluid wave. I would have a low threshold to do an ultrasound to evaluate him for ascites. He is really not uncomfortable with it at the present time, would follow for now. Would continue to encourage him to limit his alcohol use. 3. Tobacco use. Did not tolerate the Chantix. It sounds like he is still trying to quit. I had hoped the Wellbutrin may help. He has decreased but not ready to quit completely at the present time, but would continue to encourage him to do this. 4. Left-sided chest pain. It clearly does not sound cardiac. He does not really have any findings in the left chest on exam, but would have a low threshold to obtain a chest x-ray for completeness alexandra has been a heavy smoker for a prolonged period of time. 5. He is having more reflux and those symptoms may correlate with this cramping sensation in his left chest. I may consider trying him on a PPI or an H2 magdalena. 6. Depression. He thinks it is well controlled, however, when we were talking about his father, he became quite tearful. I asked him specifically if there were unresolved issues but he did not think so. I asked him if he wanted to formally see acounselor in regard to any of these issues and he declined. I actually offered him to see Katie Oshea today, our psychiatric nurse practitioner who was here in clinic today and he deferred meeting her today. Will plan to continue him on his Wellbutrin for now, but ideally, I would like him to have a consultation with Katie and see if we could do better in terms of his antidepressant. Signed by Juli Franz MD 11/10/2007 06:24 Juli Franz MD - Juli Franz MD - CRISTAL Job ID: [id number] Doc ID: [id number] cc: Hanane Pollock NP documented in this encounter Plan of Treatment Not on file documented as of this encounter Visit Diagnoses Not on filedocumented in this encounter Care Teams Licensed Practical Nurse Relationship Specialty Start Date End Date Hanane Pollock NP [facility] [address] [place] [id number] PCP - General 01/30/09 02/23/19 documented as of this encounter
--- OUTSIDE RECORDS SUMMARY | 2024-05-05 14:00 | XMS_ITS | Encounter Summary ---
Author Organization [facility] Address [address] [place] [address] Care Team Providers Care Predictive Maintenance Technician Name Role Phone Hanane Pollock NP Primary Care Provider [phone] Encounter Details Date Type Department Care Team (Late st Contact Info) Description 03/11/2007 Before PRISM Converted Visit (Maple) [facility] - Maple conversion [address] [place] [address] Juli Franz MD Social History Tobacco Use Types Packs/Day Years Used Date Smoking Tobacco: Never Assessed Sex and Gender Information Value Date Recorded Sex Assigned at Not on file Gender Identity Not on file Sexual Orientation Not on file documented as of this encounter Progress Notes * Juli Franz MD - 05/21/2009 0115 EST DIVISION OF INFECTIOUS DISEASE - [facility] PROGRESS/FOLLOWUP NOTE - 03/11/2007 DONNELL Calabrese presents for reevaluation for his HIV disease/AIDS and his chronic fatigue. He was last seen by me in the comprehensive care clinic in [facility] on February 11, 2007. Since he was last seen hesays that the fatigue may be a little [...] symptoms. No problems with rash and no other neuromuscular complaints except for the headache as mentioned [...] 73.4 kg, which was quite stable. He hada limited physical examination today as he really had no new complaints. LABORATORY DATA Review of laboratories sent for evaluation of his fatigue, again did not get a C. diff. He did havechemistries. His magnesium was fine. He had a [...] work. Everything else has been normal. He really has no localizing complaints except for the ongoing diarrhea. The difference today is he really seems depressed and he is talking about being depressed. With the discussion, he was quite tearful and clearly quite upset. On asking him he says that he is not planning to hurt himself, but he clearlyhas been thinking about a lot of different issues and it sounds like he is really feeling quite hopeless. When he is describing fatigue, he is describing having difficulty getting himself to go work or to doother things. It may be more of a motivational issue. I do think there are multiple factors playing a role. He does have some significant lung disease. He has chronic hepatitis with cirrhosis,but now I am very concerned that depression is contributingsignificantly to his fatigue. We have been concerned about depression in the past, but he never felt that he was depressed. After discussiontoday, he is agreeable to a referral to a therapist and Hanane Pollock will work on connecting him with a therapistin the [facility] area. In addition, we are going to try him on some Wellbutrin. We are going to start at a small dose of 100 mg and have him just take it in the morning once a day. Heis going to call us if he has [...] all good. Would plan to repeat his blood work in late March and followup with me in the [facility] clinic in early April. 4. Chronic hepatitis [...] Franz MD - LUIS ARMANDO Job ID: [id number] Doc ID: [id number] cc: [facility] Hanane Pollock NP documented in this encounter Plan of Treatment Not on file documented as of this encounter Visit Diagnoses Not on filedocumented in this encounter Care Teams Predictive Maintenance Technician Relationship Specialty Start Date End Date Hanane Pollock NP [facility] [address] [place] [address] PCP - General 01/30/09 02/23/19 documented as of this encounter
--- OUTSIDE RECORDS SUMMARY | 2024-05-05 14:00 | XMS_ITS | Encounter Summary ---
Author Organization [facility] Address [address] [place] [address] Care Team Providers Care Buckle Coverer Name Role Phone Hanane Pollock NP Primary Care Provider [phone] Encounter Details Date Type Department Care Team (Late st Contact Info) Description 05/18/2010 Orders Only [facility] Infectious Disease - [address] [address] Juli Franz MD Otitis externa, chronic; AIDS (acquired immune deficiency syndrome) ([facility] Social History Tobacco Use Types Packs/Day Years Used Date Smoking Tobacco: Never Assessed Sex and Gender Information Value Date Recorded Sex Assigned at Not on file Gender Identity Not on file Sexual Orientation Not on file documented as of this encounter Ordered Prescriptions Prescription Sig Dispensed Refills Start Date End Da te ukhccmac-veohxgmjs-mnrthlk rtisone (CORTISPORIN) otic solutionIndications:Otitis externa, chronic Place 3 Drops in ear(s) 4 times daily for 7 days. 1 Bottle 0 05/18/2010 05/25/2010 documented in this encounter Plan of Treatment Not on file documented as of this encounter Visit Diagnoses Diagnosis Otitis externa, chronic Other chronic otitis externa AIDS (acquired immune deficiency syndrome) ([facility]) Human immunodeficiency virus [HIV] disease documented in this encounter Care Teams Buckle Coverer Relationship Specialty Start Date End Date Hanane Pollock NP [facility] [address] [place], [place] [address] PCP - General 01/30/09 02/23/19 documented as of this encounter
--- OUTSIDE RECORDS SUMMARY | 2024-05-05 14:00 | XMS_ITS | Encounter Summary ---
Author Organization [facility] Address [address] [place] [address] Care Team Providers Care Travel Professional Name Role Phone Hanane Pollock NP Primary Care Provider [phone] Reason for Visit * Reason Onset Date Comments Results 08/05/2011 Encounter Details Date Type Department Care Team (Late st Contact Info) Description 08/05/[address] [facility] Infectious Disease - [address] [address] Juli Franz MD Results Social History Tobacco Use Types Packs/Day Years [...] other) have heard results from lung biopsy. Y[place]iae nearly 2 months ago in [facility]. Reassured Fernando that the message will be passed on. * Telephone Encounter - Lavonne Ng - 08/05/2011 1528 EST Fernando, partner, stated Guanakito sees Dr Franz in [facility]. He does not want to call [facility] as he wants to speak with Dr Franz regarding results of lung biopsy. He can be reached at [phone] documented in this encounter Plan of Treatment Not on file documented as of this encounter Visit Diagnoses Not on filedocumented in this encounter Care Teams Travel Professional Relationship Specialty Start Date End Date Hanane Pollock, [facility] [address] [place] [address] PCP - General 01/30/09 02/23/19 documented as of this encounter
--- OUTSIDE RECORDS SUMMARY | 2024-05-05 14:00 | XMS_ITS | Encounter Summary ---
Author Organization [facility] Address [address] [place] [address] Care Team Providers Care Physician Office Assistant Name Role Phone Hanane Pollock NP Primary Care Provider [phone] Encounter Details Date Type Department Care Team (Late st Contact Info) Description 06/26/2012 Orders Only [facility] Infectious Disease - [address] [address] Juli Franz MD AIDS (acquired immune deficiency syndrome) ([facility]) (Primary Dx) Social History Tobacco Use Types [...] 300 mg capsuleIndications:AIDS (acquired immune deficiency syndrome) ([facility]) Take 1 Cap by mouth daily. 30 Cap 3 06/26/2012 10/28/2012 ritonavir (NORVIR) 100 mg tabletIndications:AIDS (acquired immune deficiency syndrome) ([facility]) Take 1 Tab by mouth every 24 hours. 30 Tab 3 06/26/2012 10/28/2012 lamivudine (EPIVIR) 300 mg tabletIndications:AIDS (acquired immune deficiency syndrome) ([facility]) Take 1 Tab by mouth daily. 30 Tab 3 06/26/2012 10/28/2012 tenofovir (VIREAD) 300 mg tabletIndications:AIDS (acquired immune deficiency syndrome) ([facility]) Take 1 Tab by mouth daily. 30 Tab 3 06/26/2012 10/28/2012 Raltegravir (ISENTRESS) 400 mg TabIndications:AIDS (acquired immune deficiency syndrome) ([facility]) Take 1 Tab by mouth 2 times daily. 60 Tab 3 06/26/2012 10/28/2012 documented in this encounter Plan of Treatment [...] Tab by mouth 2 times daily. Reorder 02/12/2012 06/26/2012 tenofovir (VIREAD) 300 mg tabletIndications:AIDS (acquired immune deficiency syndrome) ([facility]) Take 1 Tab by mouth daily. Reorder 02/12/2012 06/26/2012 lamivudine (EPIVIR) 300 mg tabletIndications:AIDS (acquired immune deficiency syndrome) ([facility]) Take 1 Tab by mouth daily. Reorder 02/12/2012 06/26/2012 ritonavir (NORVIR) 100 mg tabletIndications:AIDS (acquired immune deficiency syndrome) ([facility]) Take 1 Tab by mouth every 24 hours. Reorder 02/12/2012 06/26/2012 atazanavir (REYATAZ) 300 mg capsuleIndications:AIDS (acquired immune deficiency syndrome) ([facility]CC-CMS) Take 1 Cap by mouth daily. Reorder 02/12/2012 06/26/2012 documented as of this encounter Care Teams Physician Office Assistant Relationship Specialty Start Date End Date Hanane Pollock NP [facility] [address] [place] [address] PCP - General 01/30/09 02/23/19 documented as of this encounter
--- OUTSIDE RECORDS SUMMARY | 2024-05-05 14:00 | XMS_ITS | Encounter Summary ---
Author Organization [facility] Address [address] [place] [address] Care Team Providers Care Form Coverer Name Role Phone Hanane Pollock NP Primary Care Provider [phone] Encounter Details Date Type Department Care Team (Late st Contact Info) Description 01/09/2007 Before PRISM Converted Visit (Maple) [facility] - Maple conversion [address] [place] [address] Juli Franz MD Social History Tobacco Use Types Packs/Day Years Used Date Smoking Tobacco: Never Assessed Sex and Gender Information Value Date Recorded Sex Assigned at Not on file Gender Identity Not on file Sexual Orientation Not on file documented as of this encounter Progress Notes * Juli Franz MD - 09/19/2009 1705 EST DIVISION OF INFECTIOUS DISEASE - [facility] PROGRESS/FOLLOWUP NOTE - 01/09/2007 DONNELL Calabrese presents for reevaluation of his HIV disease/AIDS. He was last seen by me in the comprehensive care clinic on October 01, 2006. Since he was last seen he has been dealing with the dentist. He diddevelop an abscesses tooth and he was put on some antibiotics. It sounds like he was taking clindamycin. He was supposed to take if four times a day. He said he was supposed to take it for a month. Iactually did talk to the pharmacy and they had only given him aseven day supply. It sounds like he took it for a couple of weeks in November then he was off of it for a period of time and then refilled itagain in early December. The major problem is that he is having problems with a feeling of bloating, some cramping and some diarrhea. He definitely thinks the diarrhea was better when he was off the clindamycin or when he decreased the frequency of the dosing to twice a day as opposed to four time a day. In general he is just not feeling as well. His says his energy level has been down markedly for the last two months. He has not really been able to work for more than an hour or two. Just feels weak in general. It doesnot sound like he has been having any problems with fevers, chills or night sweats. Just kind of complains of generalized weakness. He says his appetite has been okay. He has still had some problems with vomiting, really only associated with coughing mostly in the morning. But he is concerned abouthis digestion in that when he does vomit [...] breath. He does think a lot of his respiratory symptoms are related to the fact that [...] has not seen any improvement. He did not follow up with the blacking machine operator yet and he denies any new neuromuscular [...] is really stable at 70.5 kg, nontoxic, no acute distress, alert and appropriate. He has the areas of alopecia in his scalp although I do notsee any new areas. Sclerae nonicteric. Conjunctivae pink without hemorrhages. He has no oral lesions. He has no cervical or supraclavicular lymphadenopathy. His lungs were clear to auscultation and percussion. Cardiac exam revealed a regular rhythm without murmurs, rubs or gallops. Abdominal exam: Bowel sounds are present, soft, nontender. Cannot appreciate any hepatosplenomegaly. No masses. Extremities are without edema. He has chronic clubbing and sclerotic nails which is without change. Neurologic examination: Reflexes are decreased bilaterally. Motor strength is 5/5 bilaterally. ASSESSMENT AND PLAN 1. Generalized fatigue over about two months. Hard to know if this is related to the dental abscessand the use of antibiotics or if this was another issue. I think we need to remove the dental issues and antibiotics as a component of this. His appetite has been okay. He is not losing weight but heis just not feeling as good. I really think [...] syndrome. Why he would develop it now would not be clear to me but still would [...] has been off if for about six months and we have not seen any improvement to date. He has requested to see dermatology. I do not know how that did not get set up, but will work on that. 6. Blurry vision. Again, we suggest that he go to have a dilated eye exam once a year in view of his underlying immune compromise. 7. Tobacco use. We did discuss this again today. He is not quite ready to quit, although it does sound like he has decreased the amount that he is smoking, but he is considering smoking cessation. 8. 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 Again, he still uses alcohol intermittently,although he has done much better with this. We have not considered him a candidate for hep-C therapy because of his alcohol use and his very active hepatitis B. Signed by Juli Franz MD 02/10/2007 16:08 Sandy Ortega MD Juli Franz MD - Juli Franz MD - DD Job ID: [id number] Doc ID: [id number] cc: [facility] - Job ID: [id number] Doc ID: [id number] cc: [facility] documented in this encounter Plan of Treatment Not on file documented as of this encounter Visit Diagnoses Not on filedocumented in this encounter Care Teams Form Coverer Relationship Specialty Start Date End Date Hanane Pollock NP [facility] [address] [place] [address] PCP - General 01/30/09 02/23/19 documented as of this encounter
--- OUTSIDE RECORDS SUMMARY | 2024-05-05 14:01 | XMS_ITS | Encounter Summary ---
Author Organization [facility] Address [address] [place] [address] Care Team Providers Care Inside Barrel Lathe Operator Name Role Phone Hanane Pololck NP Primary Care Provider [phone] Encounter Details Date Type Department Care Team (Late st Contact Info) Description 01/04/2005 Before PRISM Converted Visit ([facility] conversion [address] [place] [address] Juli Franz MD Social History Tobacco Use Types Packs/Day Years Used Date Smoking Tobacco: Never Assessed Sex and Gender Information Value Date Recorded Sex Assigned at Not on file Gender Identity Not on file Sexual Orientation Not on file documented as of this encounter Progress Notes * Juli Franz MD - 09/14/2009 0915 EST DIVISION OF INFECTIOUS DISEASE [facility] PROGRESS/FOLLOWUP NOTE - 01/04/2005 ([facility]) SUBJECTIVE: Guanakito presents for reevaluation of [...] as well as some occasional pain in themuscle of the distal forearm. No numbness or tingling. He has not noticed any weakness. He denies any problems with neck pain. Hisenergy level in general has been good. His appetite has been good. Heis having occasional headaches, but it sounds like this has not really been an issue. He has intermittent blurry vision in the right eye. He does not remember when he saw ophthalmology last, but it sounds like he is probably due for a visit. No change in his hearing. No oral lesions, dysphagia or odynophagia. No problems with worsening cough or shortness of breath. No chest pain. He does think hehad some increased cough during a couple of days when the pollen was very heavy, but that seems to have resolved quite quickly. No abdominal pain. He has vomited a couple of times, mostly in the morning when he has some productive cough upon rising. No nausea. No change in his bowels or diarrhea.Nodifficulty urinating. He had not had rash despite the fact that he has been out in the sun. He has occasional numbness in his hands and this is equal bilaterally. No fevers, chills or night sweats. No numbness in his feet. He is smoking 1?? packs a day. He says he thinks he is using less alcohol. He has used one fifth and then about two-thirds of a second fifth of bourbon since he was last seen. Medications: He is on Sustiva 600 q.h.s., Zerit 40 twice daily, Dapsone 100 once a day, Diflucan 200 once a day, Epivir 300 once a day, [...] with somewhat poor air movement, but no wh eezes, rales or rhonchi. Cardiac exam revealed a regular rhythm without murmurs, rubs or gallops. Bowel sounds are present. Abdomen is soft, nontender. No hepatosplenomegaly, no masses appreciated. Extremities are without edema. On physical examination of the left shoulder, he seems to have full range of motion. I cannot appreciate any external swelling. He does have tenderness over the insertionof the biceps tendon on the left, but has some tenderness in the same area on the right. He has thechronic changes in his nails which seems to [...] undetectable viral load and seems to be toleratingthe medications fairly well. Would plan to continue him on his present antiretroviral regimen of Sustiva, Zerit, Epivir and tenofovir and would have him seen in followup in three months. Prior to that visit, he should have laboratory studies done with electrolytes, liver panel, creatinine, CBC, AT2vuprz and ultrasensitive viral load. 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 His last CD4 count was just over 200, and I would plan to continue him on his fluconazole. 3. Prophylaxis. Would continue him on his Dapsone for now, but if his CD4 count remains consistently above 200, would consider discontinuation of his Dapsone. 4. Chronic hepatitis C and hepatitis B. His transaminases seem to be remarkably stable on his present regimen. I did encourage him to decrease his alcohol use as his biopsy already showed evidence ofsignificant fibrosis. 5. Lip lesion. This has not recurred. 6. Tobacco use. We discussed this again. He has nicotine patches at home, but he is still not readyto discontinue his tobacco use. I encouraged him [...] before we do any further diagnostic studies, such as an MRI of the shoulder. 10. Safer sex. Discussed safer sex with the patient. He and his partner have not been practicing safer sex. His partner is also HIV positive, but we did discuss the need to practice safer sex so as not to transmit resistant virus. Signed by Juli Franz MD 02/06/2005 13:59 Sandy Ortega MD Juli Franz MD D: - Juli Franz MD P - Job ID: Document ID: [id number] cc: SOM Pollock, [facility], [facility], [facility] [address], [place] [address]* documented in this encounter Plan of Treatment Not on file documented as of this encounter Visit Diagnoses Not on filedocumented in this encounter Care Teams Inside Barrel Lathe Operator Relationship Specialty Start Date End Date Hanane Pollock NP [facility] [address] [place] [address] PCP - General 01/30/09 02/23/19 documented as of this encounter
--- OUTSIDE RECORDS SUMMARY | 2024-05-05 14:01 | XMS_ITS | Encounter Summary ---
Author Organization [facility] Address [address] [place] [address] Care Team Providers Care Rn Neurosurgical Name Role Phone Unavailable Primary Care Provider Unavailabl e Encounter Details Date Type Department Care Team (Late st Contact Info) Description 04/20/2004 13:27 EDT Hospital Encounter [facility] - Other [address] [place] [address] Daniel Blum MD [address] [facility], [address] [place] [address] Social History Tobacco Use Types Packs/Day Years [...]
--- OUTSIDE RECORDS SUMMARY | 2024-05-05 14:01 | XMS_ITS | Encounter Summary ---
Author Organization [facility] Address [facility] [address] Care Team Providers Care Gate Tender Name Role Phone Laura De Primary Care Provider + Reason for Visit * Consultation (Routine) - Specialty Diagnoses / Procedures Referred By Ezequiel arita Referred To Contact Dermatology Diagnoses skin lesion Laura De PA [address] [place] [address] [facility] Dermatology [address] [place] [address] Referral ID Status Reason Start Date Expiration Date V isits Requested Visits Authorized [id number] Consult, Test & Treat Connection Center 04/16/2018 04/16/2019 6 6 Encounter Details Date Type Department Care Team (Late st Contact Info) Description 05/11/2018 9:45 AM EDT Office Visit Dermatology at [facility] [address] [place] [id number] Aretha Lassiter MD [facility] [address] [place] [address] Condyloma acuminata Social History Tobacco Use Types Packs/Day Years Used Date Smoking Tobacco: Every Day Cigarettes 0.5 15 Smokeless Tobacco: Never Sex and Gender Information Value Date Recorded Sex Assigned at Not on file Gender Identity Not on file Sexual Orientation Not on file documented as of this encounter Progress Notes * Aretha Lassiter MD - 05/11/2018 9:45 AM [...] me and the clinic, referred by CHANTAL Gutierrez. Patient states that he has lesions on [...] and change by: Mariola Del Valle, RN I, Mariola Del Valle RN, have performed the [...] documentation. Aretha Lassiter MD Section of Dermatology [facility] documented in this encounter Plan of Treatment Not on file documented as of this encounter Visit Diagnoses Diagnosis Condyloma acuminata Condyloma acuminatum documented in this encounter Care Teams Gate Tender Relationship Specialty Start Date End Date Laura De PA PCP - General Family Medicine 04/16/18 01/01/22 documented as of this encounter
--- OUTSIDE RECORDS SUMMARY | 2024-05-05 14:01 | XMS_ITS | Encounter Summary ---
Author Organization [facility] Address [facility] [place] [address] Care Team Providers Care Sales Professional Name Role Phone Sabrina Jerome APRN Primary Care Provider [phone] Reason for Referral * Consultation (Routine) - Closed Specialty Diagnoses / Procedures Referred By Ezequiel arita Referred To Contact Dermatology Diagnoses Sebaceous cyst Skin tags, anus or rectum Papule Sabrina Jerome APRN [address] [place] [address] [facility] Dermatology [address] [place] [address] Referral ID Status Reason Start Date Expiration Date V isits Requested Visits Authorized [id number] Closed Consult, Test & Treat PCP Updated and/or Approved 01/02/2022 01/02/2023 12 12 Encounter Details Date Type Department Care Team (Latest Contact Info) Description 01/02/2022 Transcribe Orders eDH Incoming Referrals [phone] Sabrina Jerome APRN [address] [place], [place] [id number] Sebaceous cyst; Skin tags, anus or rectum; Papule Social History Tobacco Use Types Packs/Day Years Used Date Smoking Tobacco: Every Day Cigarettes 0.5 15 Smokeless Tobacco: Never Sex and Gender Information Value Date Recorded Sex Assigned at Not on file Gender Identity Not on file Sexual Orientation Not on file documented as of this encounter Plan of Treatment Scheduled Referrals Name Type Priority Associated Diagnoses Order Schedule Referral to Dermatology Outpatient Referral Routine Sebaceous cyst Skin tags, anus or rectum Papule Ordered: 01/02/2022 documented as of this encounter Visit Diagnoses Diagnosis Sebaceous cyst Skin tags, anus or rectum Residual hemorrhoidal skin tags Papule Other specified disorder of skin documented in this encounter Care Teams Sales Professional Relationship Specialty Start Date End Date Sabrina Jerome APRN PCP - General Family Medicine 01/02/22 documented as of this encounter
--- OUTSIDE RECORDS SUMMARY | 2024-05-05 14:01 | XMS_ITS | Encounter Summary ---
[facility] [place] [address] Care Team Providers Care Street Engineer Name Role Phone Sabrina Jerome APRN Primary Care Provider [phone] Encounter Details Date Type Department Care Team (Latest Contact Info) Description 05/10/2022 Travel Social History Tobacco Use Types Packs/Day Years [...] on filedocumented in this encounter Care Teams Street Engineer Relationship Specialty Start Date End Date Sabrina Jerome APRN PCP - General Family Medicine 01/02/22 documented as of this encounter
--- OUTSIDE RECORDS SUMMARY | 2024-05-05 14:01 | XMS_ITS | Encounter Summary ---
Author Organization [facility] Address [facility] [place] [address] Care Team Providers Care Travel Registered Nurse Pacu Name Role Phone Sabrina Jerome APRN Primary Care Provider [phone] Reason for Visit * Consultation (Routine) - Closed Specialty Diagnoses / Procedures Referred By Ezequiel arita Referred To Contact Maxillofacial Surgery Diagnoses Extraction of tooth [place] [address] [facility] Maxillo Surg [address] [place] [phone] Referral ID Status Reason Start Date Expiration Date V isits Requested Visits Authorized [id number] Closed Consult, Test & Treat 01/10/2023 01/10/2024 1 1 Encounter Details Date Type Department Care Team (Late st Contact Info) Description 02/25/2023 8:00 AM EDT Office Visit [place] [address] Merrill Krueger PA [facility] [place] [address] Oral frictional keratosis Social History Tobacco Use Types Packs/Day Years Used Date Smoking Tobacco: Every Day Cigarettes 1 15 Smokeless Tobacco: Never Tobacco Cessation:Ready to Q uit: Not Asked; Counseling Given: Not Answered Sex and Gender Information Value Date Recorded Sex Assigned at Not on file Gender Identity Not on file Sexual Orientation Not on file documented as of this encounter Progress Notes * Merrill Krueger PA - 02/25/2023 8:00 AM EDT Images from the original note were not included. ORAL-MAXILLOFACIAL SURGERY OUTPATIENT CLINIC INITIAL CONSULTATION VISIT Name: Guanakito Cedillo Age/Sex: 53 y.o. male History of Present Illness Guanakito Cedillo is a 53 y.o. male referred by Shakeel Calhoun for consultation regarding palatal lesion. A complete history of the Guanakito 's symptoms and physical signs were reviewed with attention to initial findings and progression, pain, bleeding, swelling, lumps, bumps, drainage, dysphagia, odynophagia, paresthesia, dysarthria and systemic effects. Pertinent notations from today's history: Had biopsy 2019 was benign In [facility], unsure of the name of the practice Patient himself had not noticed it or had symptoms. First noted at routine dental visit Wears maxillary partal denture. Takes out at night time. Has had for around 6-7 years. No recent adjustments Smokes cigarettes a little less than a ppd, was 2+ for quite some time. Also marijuana No regular alcohol consumption Seems the lesion is just under partial left palate Denies pain. Had hygiene visit. Hygienist noted lesion has increased in size. Able to locate prior biopsy results from 06/14/2019 through [facility] (Dr. Santino Lealwith [facility]) A. SOFT PALATE, LEFT, BIOPSY: - Squamous mucosa with mild chronic inflammation, mild parakeratosis, and focal subepithelial fibrosis. See comment. - No dysplasia identified. Past Medical/Social/Dental History No past medical history on file. There is no problem list on file for this patient. Social History Tobacco Use Smoking status: Every Day Packs/day: 1.00 Years: 15.00 Pack years: 15.00 Types: Cigarettes Smokeless tobacco: Never Substance Use Topics Alcohol use: Not on file raltegravir (ISENTRESS) 400 mg Tablet emtricitab/rilpiviri/tenof ala (ODEFSEY ORAL) lisinopril (PRINIVIL;ZESTRIL) 10 mg Tablet Allergies Allergen Reactions Penicillins Sulfa (Sulfonamide Antibiotics) Review of Systems Pertinent positive and negative findings discussed above. ROS with attention to cardiac, pulmonary,hepatic, renal, neurologic, lymphatic, gastroenterologic, constitutional, hematologic, and dermatologic systems reviewed with relevant findings as noted. Physical Exam Vitals: There were no vitals taken for this visit. There is no height or weight on file to calculate BMI. Extraoral exam conducted including facial symmetry, sensory and motor function, alertness and appropriateness to questions and commands, range of jaw motion, TMJ function and skeletal architecture. Neck exam conducted with attention to normal musculature, vasculature and potential adenopathy. Intraoral exam including evaluation of tongue surface and consistency, floor of mouth, buccal and labial mucosa as well as maxillary and mandibular vestibules, hard and soft palate including soft palate elevation and oropharynx as well as dentition, dental arches, occlusion and salivary flow. General: No acute distress, pleasant Focused oral exam: No trismus Approximately 1.5 x 0.5 cm area of hypopigmentation of the left soft palate near the transition from the hard to soft palate Non-raised without true leukoplakia, no ulceration or erythroplakia Keratotic/fibrous appearance along the maxillary arches Maxillary partial denture, well-fitted. The area in question is about 1 cm posterior to the posterior automotive fuel injection servicer of the denture No appreciable LAD Neuro: a/o x3 Neck: soft, supple Psych: appropriate, responds to questions normally Imaging Photo from dentist ASSESSMENT & RECOMMENDATIONS Assessment: tissue island of soft palate, appearing most visually consistent with keratotic/fibroustissue island Was able to locate pathology report as above. The area appears quite benign and not pathologic in nature at this time. Discussed that biopsy could be considered, as he does have risk factors (mainly smoking) however given we were able to locate the biopsy report which fits with the visual appearance, it seems reasonable to defer at this time. Recommendations/plan: Patient, provider agreed to defer biopsy after above discussion. He does have regular dental visitsand may continue routine examinations. May return to care with us for any changes (further increasein size, development of pain, or concern). We appreciate the opportunity to be involved in Mr. Cedillo's care. CHANTAL Robles-C - Oral-Maxillofacial Surgery 02/25/2023 8:30 AM This note may have incorporated grmda-ls-abby technology and though reviewed typographical or syntax errors may remain. documented in this encounter Plan of Treatment Scheduled Referrals Name Type Priority Associated Diagnoses Order Schedule Referral to Maxillofacial Surgery Outpatient Referral Routine Extraction of tooth needed Ordered: 01/10/2023 documented as of this encounter Visit Diagnoses Diagnosis Oral frictional keratosis Other and unspecified diseases of the oral soft tissues documented in this encounter Care Teams Travel Registered Nurse Pacu Relationship Specialty Start Date End Date Sabrina Jerome APRN PCP - General Family Medicine 01/02/22 documented as of this encounter
--- OUTSIDE RECORDS SUMMARY | 2024-05-05 14:01 | XMS_ITS ---
Author Organization [facility] Address [address] [place] [address] Care Team Providers Care Brusher Machine Name Role Phone Sabrina Jerome SPA TECHNICIAN Primary Care Provider [phone] HIV Status:Enrolled (Active) Start date:08/21/2023 Enrollment date:08/22/2023 Enrollment reason:Referred by provider Current support & services provided:Clinical Management, Refill Management Linked medications:emtricitab/rilpiviri/tenof ala (Active), raltegravir potassium (Active) Linked problems:Acquired immunodeficiency syndrome ([facility]) (Active) Case Team Name Relationship Phone Frankie Mitchell [facility] Pharmacist(Responsible Staff) Continued Care and Services Coordination
--- OUTSIDE RECORDS SUMMARY | 2024-05-05 14:01 | XMS_ITS | Encounter Summary ---
Author Organization [facility] Address [address] [place] [address] Care Team Providers Care Restaurant Crew Person Name Role Phone Hanane Mccormack NP Primary Care Provider [phone] Encounter Details Date Type Department Care Team (Late st Contact Info) Description 12/01/2002 Results Only [facility] Radiology - [address] [address] Alissa Mas MD [address] [facility], [address] [place] [address] Social History Tobacco Use Types [...] Date/Time Associated Diagnosis Comments SURGICAL PATHOLOGY Routine 12/01/2002 0:00 EDT documented in this encounter Results * SURGICAL PATHOLOGY (12/01/2002 0:00 EDT) Pathology Report: SURGICAL PATHOLOGY REPORT Reports generated via electronic interface contain original data; however they are lacking the format of the original report. Caution should be taken when reading/interpretin g unformatted reports. Name: ? KALEB CEDILLO ? Accession #: ? [id number] ? : ? 1970 (Age: 32) ??M ? Collect Date: ? 12/01/2002 ? Location: ? RAD ? Receive Date: ? 12/01/2002 ? Provider: ALISSA MAS MD Copy to: NEW MCCORMACK NP ? Addendum ? Date Ordered: ? 12/09/2002 ? Status: Signed Out ? Date Complete: ? 12/09/2002 ? By: Radha Terrazas ? Date Reported: ? 12/09/2002 ? Addendum Comment ? Additional immunoperoxidase studies performed on the liver biopsy specimen show positivity for HBcAg (polyclonal, Dako) and HBsAg (3E71, Dako), indicating active hepatitis B. This appears to coexist with the clinically diagnosed hepatitis C and might explain the significant inflammatory activity. ??However, a superimposed adverse drug effect may show identical histologic features. Clinical correlation is essential. ??(Dr. Tomlinson)/joanna Document reviewed and electronically signed by: ? Robel Tomlinson MD ? Report date: 12/09/2002 By the signature above, the attending physician certifies that he/she has personally conducted a gross and/or microscopic examination of the described specimens and rendered or confirmed the above diagnosis. Final Pathologic Diagnosis: ? Liver, right lobe, core biopsy: 1. ?Chronic hepatitis, consistent with Hepatitis C infection. ??See comment. ? - Moderate inflammatory activity (grade 3 of 0-4 scale). - Bridging fibrosis (stage 3 of 0-4 scale). - No evidence of stainable iron deposit. Comment: ? The liver core biopsy showed dense portal chronic inflammation with focal involvement of the acini. ??There is marked portal expansion and bridging fibrosis, which is highlighted on the trichrome stained slide. ??Focal nodular architecture are present but not diffuse in the specimen. ??There is no stainable iron on the iron stained slide. ??(Dr. Brizuela)/[facility] Document reviewed and electronically signed by: Coty Coleman MD Report ??Date: 12/03/2002 15:37 By the signature above, the attending physician certifies that he/she has personally conducted a gross and/or microscopic examination of the described specimens and rendered or confirmed the above diagnosis. Specimen(s) Received: ? 2 core samples, Rt lobe liver Clinical History: ? AIDS/HIV, chronic Hep B & C, marked increase in transaminases after stopping one regimen of antiretroviral which contained 3TC in Jun. ??Started new regimen in Aug. Gross Description: ? Received in formalin labelled Snide are two red-brown, cylindrical soft tissues measuring 1.3 and 1.6 cm in length, each with a diameter of 0.1 cm. Iron and trichrome stains are ordered. ??The specimen is entirely submitted in one cassette. ??(Brando Dior)/[facility] End of Report [facility] 12/01/2002 12/01/2002 9:1 6 EDT Alissa Mas MD PATHOLOGY OR DERABLES Performing Organization Address City/State/[facility] Co de Phone Number [facility] [address] [place] [address] documented in this encounter Visit Diagnoses Not on filedocumented in this encounter Care Teams Restaurant Crew Person Relationship Specialty Start Date End Date Hanane Mccormack NP [facility] [address] [place], [place] [id number] PCP - General 01/30/09 02/23/19 documented as of this encounter
--- OUTSIDE RECORDS SUMMARY | 2024-05-05 14:01 | XMS_ITS | Clinical Summary ---
Author Organization [facility] Address [facility] [place] [address] Care Team Providers Care Supervisor Airplane Flight Attendant Name Role Phone Sabrina Jerome APRN Primary Care Provider [phone] Allergies Active Allergy Reactions Criticality Noted Date Comments Penicillins 05/11/2018 Sulfa (Sulfonamide Antibiotics) 04/14 Medications Medication Sig Dispensed Refills Start Date End Date Status raltegravir (ISENTRESS) 400 mg Tablet Take 400 mg by mouth 2 times daily. Active emtricitab/rilpiviri/te nof ala (ODEFSEY ORAL) Take by mouth. Active lisinopril (PRINIVIL;ZESTRIL) 10 mg Tablet Take 10 mg by mouth daily. Active Active Problems No known active problems Social [...] Sign Reading Time Taken Comments Blood Pressure 125/79 06/25/2022 3:20 PM EST Pulse 73 06/25/2022 3:20 PM EST Temperature - - Respiratory Rate - - Oxygen Saturation - - Inhaled Oxygen Concentration - - Weight - - Height - - Body Mass Index - - Plan of Treatment Health Maintenance Due Date Last Done Comments CT Colonography 1968 Colonoscopy 1968 Colorectal Cancer Screening 1970 FIT DNA 1968 FIT 1968 Sigmoidoscopy (10 year) with FIT yearly 1968 Sigmoidoscopy 1970 Pneumococcal Vaccine: At-Risk 5-64yrs (1 of 2 - PCV) 0 01/18/1974 HIV screen 01/18/1986 Hepatitis C Screening 01/18/1986 Lipid Screening 01/18/1986 Hepatitis B vaccine (0-59 yrs) (1) 01/18/1987 Tetanus/Diphtheria/Pertussis Vaccines (1 - Tdap) 01/18 Zoster vaccine (1 of 2) 01/18/2018 Advance Directive 01/18/2023 Covid-19 Vaccine (1 - 2022- season) 2024 Influenza (Flu) vaccine (1 o f 1 - Influenza standard series) 03/14/2024 Care Teams Supervisor Airplane Flight Attendant Relationship Specialty Start Date End Date Sabrina Jerome APRN PCP - General Family Medicine 01/02/22
--- OUTSIDE RECORDS SUMMARY | 2024-05-05 14:01 | XMS_ITS | Encounter Summary ---
Author Organization [facility] Address [address] [place] [address] Care Team Providers Care Tractor Operator Battery Name Role Phone Hanane Pollock NP Primary Care Provider [phone] Encounter Details Date Type Department Care Team (Late st Contact Info) Description 04/21/2001 Results Only [facility] [address] [place] [address] Unknown, Provider, Social History Tobacco Use Types Packs/Day Years Used Date Smoking Tobacco: Never Assessed Sex and Gender Information Value Date Recorded Sex Assigned at Not on file Gender Identity Not on file Sexual Orientation Not on file documented as of this encounter Plan of Treatment Not on file documented as of this encounter Procedures Procedure Name Priority Date/Time Associated Diagnosis Comments HIV-1 (WESTERN BLOT) Routine 04/21/2001 11:32 EDT HEMAGRAM & DIFF Routine 04/21/2001 11:32 EDT QUANTITATIVE HIV POLYMERASE CHAIN REACTION Routine 04/21/2001 11:32 EDT TOXOPLASMOSIS AB USE ONLY IF 1:1 DILUTION REQUESTED, OTHERWISE USE TOXOG Routine 04/21/2001 11:32 EDT T CELL SUBSETS Routine 04/21/2001 11:32 EDT HEPATITIS C AB W REFLEX TO HCV RNA BY PCR Routine 04/21/2001 11:32 EDT HEPATITIS A TOTAL ANTIBODY W REFLEX Routine 04/21/2001 11:32 EDT HEPATITIS B SURFACE ANTIGEN CONFIRMATION Routine 04/21/2001 11:32 EDT HEPATITIS B CORE ANTIBODY (TOTAL) Routine 04/21/2001 11:32 EDT HEPATITIS B SURFACE ANTIBODY Routine 04/21/2001 11:32 EDT HEPATITIS B SURFACE ANTIGEN Routine 04/21/2001 11:32 EDT SYPHILIS SERO (RPR) Routine 04/21/2001 1 1:32 EDT HIV 1/2 ANTIGEN AND ANTIBODY, 4TH GENERATION Routine 04/21/2001 11:32 EDT COMPREHENSIVE METABOLIC PANEL (CMP) Routine 04/21/2001 11:32 EDT documented in this encounter Results * TOXOPLASMOSIS AB USE ONLY IF 1:1 DILUTION REQUESTED, OTHERWISE USE TOXOG (04/21/2001 11:32 EDT) Toxoplasmosis Ab Acute ititer=<1:16, ??Please submit another specimen in 3 weeks if current ?? infection is suspected. ??Test performed by [facility], [place], [place] BR[facility] 04/21/2001 11:3 2 EDT 04/21/2001 11:46 EDT Provider Unknown IMMUNOLOGY AND SEROL HATTIE ORDERABLES [facility] [address] [place] [address] * SYPHILIS SERO (RPR) (04/21/2001 11:32 EDT) Syphilis Sero (RPR) NONREACT. NR Dils [facility] 04/21/2001 11:3 2 EDT 04/21/2001 11:46 EDT Provider Unknown IMMUNOLOGY AND SEROL OGY ORDERABLES Performing Organization Address [facility] de Phone Number [facility] [address] [place] [address] * (ABNORMAL) IMMUNODEFICIENCY PANEL (04/21/2001 11:32 EDT) CD3 87(H) 67 - 84 % [facility] CD4 2(L) 40 - 65 % [facility] CD8 83(H) 10 - 38 % [facility] Absolute CD4 13(L) 702 - 1791 per UL [facility] Comment:The absolute CD4 cou nt was calculated using the manual differential 04/21/2001 11:3 2 EDT 04/21/2001 11:46 EDT Provider Unknown IMMUNOLOGY AND SEROL OGY ORDERABLES Performing Organization Address [facility] Phone Number [facility] [address] [place] [address] * HIV-1 (WESTERN BLOT) (04/21/2001 11:32 EDT) Pathologist [facility] HIV-1 Western Blot Positive. ??Antibodies reacted with the following antigen bands: p24, gp41, ?? p51, p55, p65, gp120, gp160 Test performed by [facility], [place], [place] BRAD MANJARREZ HIV-1 Abs-EIA REACTIVE [facility]AN[facility] 04/21/2001 11:3 2 EDT 04/21/2001 11:46 EDT Provider Unknown HISTORICAL LAB FOR S Q LOAD Performing Organization Address [facility] de Phone Number [facility] [address] [place] [address] * QUANTITATIVE HIV POLYMERASE CHAIN REACTION (04/21/2001 11:32 EDT) HIV1 RNA 49,460 Unit: copies/mL ??(Note) This test is performed pursuant to a license agreement with ? [employer] ? TEST PERFORMED OR REFERRED BY [facility] ? [facility] ? [address] ? [place], [place] ??[address] ? [facility] Specimen Source Plasma [facility] 04/21/2001 11:3 2 EDT 04/21/2001 11:46 EDT Provider Unknown CHEMISTRY & BLOOD GA S ORDERABLES Performing Organization Address [facility] de Phone Number [facility] [address] [place] [address] * (ABNORMAL) HIV ANTIBODY (JOSEFINA) (04/21/2001 11:32 EDT) HIV 1/2 Antibody REACTIVE Sent to [facility], [place], [place] for further testing.(A) NR [facility] 04/21/2001 11:3 2 EDT 04/21/2001 11:46 EDT Provider Unknown IMMUNOLOGY AND SEROL OGY ORDERABLES Performing Organization Address [facility] Phone Number [facility] [address] [place] [address] * (ABNORMAL) HEPATITIS C ANTIBODY (04/21/2001 11:32 EDT) Hepatitis C Ab Pos Indicates recent or remote infection.( AA) [facility] 04/21/2001 11:3 2 EDT 04/21/2001 11:46 EDT Provider Unknown CHEMISTRY & BLOOD GA S ORDERABLES Performing Organization Address [facility] Co de Phone Number [facility] [address] [place] [address] * (ABNORMAL) HEPATITIS B CORE ANTIBODY (04/21/2001 11:32 EDT) Hep B Core Ab Pos Indicates either remote past infection OR window period between disappearance of HBsAg and appearance of HBsAb.(AA) [facility] 04/21/2001 11:3 2 EDT 04/21/2001 11:46 EDT Provider Unknown CHEMISTRY & BLOOD GA S ORDERABLES Performing Organization Address [facility]/ZIP Co de Phone Number [facility] [address] [place] [address] * (ABNORMAL) HEPATITIS B SURFACE ANTIGEN CONFIRMATION (04/21/2001 11:32 EDT) Hepatitis B Surface Antigen Confirmation Pos Positive, confirmed by inhibition(AA ) [facility] 04/21/2001 11:3 2 EDT 04/21/2001 11:46 EDT Provider Unknown CHEMISTRY & BLOOD GA S ORDERABLES Performing Organization Address [facility] Co de Phone Number [facility] [address] [place] [address] * HEPATITIS B SURFACE ANTIGEN (04/21/2001 11:32 EDT) Hepatitis B Surface Ag Positive screen, confirmation to follow. [facility] 04/21/2001 11:3 2 EDT 04/21/2001 11:46 EDT Provider Unknown CHEMISTRY & BLOOD GA S ORDERABLES Performing Organization Address [facility] Co de Phone Number [facility] [address] [place] [address] * HEPATITIS B SURFACE ANTIBODY (04/21/2001 11:32 EDT) Hepatitis B Surface Ab Neg [facility] 04/21/2001 11:3 2 EDT 04/21/2001 11:46 EDT Provider Unknown CHEMISTRY & BLOOD GA S ORDERABLES Performing Organization Address [facility]/ZIP Co de Phone Number [facility] [address] [place] [address] * HEPATITIS A TOTAL ANTIBODY (04/21/2001 11:32 EDT) Hep A Antibody Neg [facility] 04/21/2001 11:3 2 EDT 04/21/2001 11:46 EDT Provider Unknown CHEMISTRY & BLOOD GA S ORDERABLES [facility] [address] [place] [address] * (ABNORMAL) COMPREHENSIVE METABOLIC PANEL (04/21/2001 11:32 EDT) Potassium 3.8 3.5 - 5.0 mEq/L [facility] Sodium 141 136 - 145 mEq/L [facility] Chloride 104 96 - 110 mEq/L [facility] CO2 27 24 - 30 mEq/L [facility] Total Alkaline Phosphatase 102 38 - 126 U/L [facility] Bilirubin, Total 0.4 0.2 - 1.3 mg/dl [facility] AST 101(H) 8 - 50 U/L [facility] ALT 195(H) 15 - 75 U/L [facility] Albumin 3.3 3.0 - 5.5 g/dl [facility] Total Protein 6.5 6.0 - 8.5 g/dl [facility] Creatinine 0.8 0.7 - 1.5 mg/dl [facility] BUN 12 10 - 26 mg/dl [facility] Calcium 8.4(L) 8.5 - 10.5 mg/dl [facility] Calculated Calcium 9.5 8.5 - 10.5 mg/dl [facility] Glucose, Serum 86 70 - 110 mg/dl [facility] Albumin/Globulin Ratio 1.0 [facility] 04/21/2001 11:3 2 EDT 04/21/2001 11:46 EDT Provider Unknown CHEMISTRY & BLOOD GA S ORDERABLES [facility] [address] [place] [address] * (ABNORMAL) HEMAGRAM & DIFF (04/21/2001 11:32 EDT) Pathologist [facility] WBC 2.67(L) 4.0 - 10.4 K/cmm [facility] RBC 3.84(L) 4.36 - 5.78 M/cmm [facility] Hemoglobin 11.9(L) 13.8 - 17.3 gm/dl [facility] HCT 34.1(L) 39.5 - 50.2 % [facility] [...] - 46.8 % [facility] Monocytes 14(H) 1.8 - 12.0 % [facility] Eosinophils 4 0.6 - 6.9 % [facility] Basophils 1 0.2 - 1.4 % [facility] ABS Neutrophils 1.31(L) 2.20 - 8.85 K/cmm [facility] ABS Lymphs 0.85(L) 1.09 - 3.30 K/cmm [facility] ABS Monocytes 0.37 0.1 - 0.8 K/cmm [facility] ABS Eosinophils 0.11 0.03 - 0.61 K/cmm [facility] ABS Basophils 0.03 0.01 - 0.11 K/cmm [facility] RBC Morphology [facility] Type of Diff: Manual [facility] 04/21/2001 11:3 2 EDT 04/21/2001 11:46 EDT Provider Unknown HISTORICAL LAB FOR S Q LOAD [facility] [address] [place] [address] documented in this encounter Visit Diagnoses Not on filedocumented in this encounter Care Teams Tractor Operator Battery Relationship Specialty Start Date End Date Hanane Pollock NP [facility] [address] [place] [address] PCP - General 01/30/09 02/23/19 documented as of this encounter
--- OUTSIDE RECORDS SUMMARY | 2024-05-05 14:01 | XMS_ITS | Encounter Summary ---
Author Organization [facility] Address [facility] [place] [address] Care Team Providers Care Oracle Wms Consultant Name Role Phone Sabrina Jeroem APRN Primary Care Provider [phone] Reason for Visit * Reason Comments Procedure * Consultation (Routine) - Closed Specialty Diagnoses / Procedures Referred By Contsue t Referred To Contact Dermatology Diagnoses Pilar cyst of scalp Singh Bhatt MD [facility] [address] [facility] [place] [address] Tara Choi RN Referral ID Status Reason Start Date Expiration Date V isits Requested Visits Authorized [id number] Closed Consult, Test & Treat 05/10/2022 05/10/2023 1 1 Encounter Details Date Type Department Care Team (Latest Contact Info) Description 06/25/2022 3:15 PM EST Procedure visit Dermatology at [facility] [address] [place] [address] Giovanni Vaughan MD [facility] DR [address] [place] [address] Pilar cyst of scalp Social History Tobacco Use Types Packs/Day Years [...] - - Body Mass Index - - documented in this encounter Progress Notes * Tara Choi RN - 06/25/2022 3:15 PM EST Patient Name: Guanakito Cedillo Age: 52 y.o. Date of : 1970 Today's Date: 06/25/2022 REFERRING PROVIDER: Singh Bhatt HPI: Guanakito Cedillo is a 52 y.o. male presenting for excision of pilar cyst location on the left temporalscalp. The dermatologic preoperative information sheet was reviewed with pertinent positive and negative as below. DERMATOLOGIC PRE-OPERATIVE EVALUATION AND REVIEW OF SYSTEMS Pacemaker/Defibrillator? no Joint replacement or other implantable devices (e.g. Cochlear implant)? If yes then when? no Do you take a blood thinner? No History of artificial valve or stroke? no History of liver disease or bleeding disorder? no Do you have any medical problems that may affect your upcoming surgery? no ALLERGIES: Allergies reviewed MEDICATIONS: Medications reviewed Signed: Tara Choi RN * Soumya Schulz MD - 06/25/2022 3:15 PM EST Images from the original note were not included. Dermatologic Surgery Operative Report (Procedure: Excision with intermediate layered Closure) I directly supervised Dr. Schulz in the care of this patient. I saw and evaluated this patient with Dr. Schulz. He presented the history and physical exam detailsto me, then we saw the patient together and I confirmed these findings. I agree with details as written. My physical examination confirms his findings. I was present > 50% of the procedure and at all the critical points of removal and repair. The assessment and plan were formulated in discussion with me at the time of visit and I agree withthem as documented. Giovanni Vaughan MD Staff Physician Department of Dermatology Patient Name: Guanakito Cedillo Date of : 1970 Visit date: 06/25/2022 STAFF SURGEON: Giovanni Vaughan MD RESIDENT SURGEON: Soumya Schulz MD Preoperative Diagnosis: Pilar Cyst Postoperative Diagnosis: Same as above Pathology: Submitted for permanent pathology. Pending. Lesion Site (location): Left Temporal Scalp Pre-operative size (cm): 2.5 x 2.5 cm Circumferential Margins Obtained: 0 cm Final Defect size or Total Excision Diameter (the lesion plus margins): 2.5 x 2.5 cm Final Length of closure: 2.5 cm Total local anesthesia with 1% lidocaine with 1:100,000 epinephrine used: 3 cc INDICATION REMOVAL. PROCEDURE Excision with intermediate layered closure. Prior to the procedure, final verification of the patient identity and correct marked surgical sitewas performed. Timeout was performed. PREOPERATIVE MEDICATION: [x] None Anesthesia used was 1% lidocaine with 1:100,000 epinephrine. The skin was prepped in a sterile fashion with with 2% chlorhexidine. The lesion was excised with clinically tumor-free margins in a fusiform fashion through the skin and through the subcutaneous tissue. The wound edges were trimmed as needed, and hemostasis was obtained with electrocoagulation. Due to wound size, the wound edges were closed in a intermediate layered fashion with Monocryl 4.0 subcutaneous sutures and Fastgut 4-0 skin sutures. Postoperative length: 2.2 cm. Estimated blood loss: Minimal. Complications: None. Wound care: Routine. Specimen sent to Dermatopathology. Biopsy report is pending. Follow up: PRN POST-OPERATIVE MEDICATIONS: [x] NONE Images: I performed the above scribed service and agree with the accuracy of the documentation in this encounter. 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 Asked the patient to call back if the lesion re-appears in that area. 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 Location: [facility] The signing pathologist has (i) examined the relevant preparation(s) for the specimen(s) and (ii) rendered or confirmed the diagnosis(es). . 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 Dermatopathologist Performed at: ??-[facility] Dept. of Pathology, [place] [address] Automation And Controls Manager: Suyapa Joseph MD, FCAP, ??CLIA Certificate: [id number] SPECIMEN(S) SUBMITTED A - left temporal scalp, skin excision (1) CLINICAL INFORMATION Excision of pilar cyst SPECIMEN PROCESSING A - Labeled/Fixative: Left temporal scalp, formalin. Quantity/Size: ??Single, 1.8 x 1.7 x 1.5 cm. Tissue Description: Intact cyst with an overlying 2.0 x 0.8 cm ellipse of lazcano skin. The cyst contents consist of solid, yellow-lazcano material. Sections/Processing: Inked, serially sectioned and entirely submitted in 2 cassettes labeled A1-A5. ??sns 07/01/2022 8:45 AM EST [facility] EPIDERMOID CYST / Unknown 06/25/2022 3:49 PM EST 06/25/2022 3:49 PM EST Soumya Schulz MD PATHOLOGY/CYTOLOGY O [facility] [place], [place] [id number] [place] [address] [place] [address] * Specimen to Pathology (06/25/2022 3:49 PM EST) AP Specimen 06/25/2022 3:49 PM EST 06/25/2022 3:49 PM EST Narrative [facility] - 06/25/2022 3:49 PM EST Specimen requisition ordered. ??Separate Pathology report to follow Giovanni Vaughan MD PATHOLOGY/CYTOLOGY O [facility] Performing Organization Address City/[facility]/ZIP Co de Phone Number [facility] [place] [address] documented in this encounter Visit Diagnoses Diagnosis Pilar cyst of scalp documented in this encounter Care Teams Oracle Wms Consultant Relationship Specialty Start Date End Date Sabrina Jerome, SUPERVISOR [employer] PCP - General Family Medicine 01/02/22 documented as of this encounter
--- OUTSIDE RECORDS SUMMARY | 2024-05-05 14:01 | XMS_ITS | Encounter Summary ---
[place] [address] Care Team Providers Care Manager Forensic Name Role Phone Sabrina Jerome APRN Primary Care Provider [phone] Reason for Referral * Consultation (Routine) - Closed Specialty Diagnoses / Procedures Referred By Ezequiel arita Referred To Contact Maxillofacial Surgery Diagnoses Extraction of tooth needed [place] [address] [facility] [address] [place] [phone] Referral ID Status Reason Start Date Expiration Date V isits Requested Visits Authorized [id number] Closed Consult, Test & Treat 01/10/2023 01/10/2024 1 1 Encounter Details Date Type Department Care Team (Latest Contact Info) Description 01/10/2023 Transcribe Orders eDH Incoming Referrals [phone] Shakeel Calhoun DDS [place], [place] [id number] Extraction of tooth needed Social History Tobacco Use Types Packs/Day Years [...] as of this encounter Visit Diagnoses Diagnosis Extraction of tooth needed documented in this encounter Care Teams Manager Forensic Relationship Specialty Start Date End Date Sabrina Jerome APRN PCP - General Family Medicine 01/02/22 documented as of this encounter
--- OUTSIDE RECORDS SUMMARY | 2024-05-05 14:01 | XMS_ITS | Encounter Summary ---
Author Organization [facility] Address [address] [place] [address] Care Team Providers Care Neon Sign Worker Name Role Phone Hanane Pollock NP Primary Care Provider Encounter Details Date Type Department Care Team (Late st Contact Info) Description 08/14/2005 Before PRISM Converted Visit (Maple) [facility] - Maple conversion [address] [place] [address] Juli Franz MD Social History Tobacco Use Types Packs/Day Years Used Date Smoking Tobacco: Never Assessed Sex and Gender Information Value Date Recorded Sex Assigned at Not on file Gender Identity Not on file Sexual Orientation Not on file documented as of this encounter Progress Notes * Juli Franz MD - 09/14/2009 0450 EST DIVISION OF INFECTIOUS DISEASE - [facility] PROGRESS/FOLLOWUP NOTE - 08/14/2005 SUBJECTIVE: Guanakito presents for re-evaluation of HIV disease/AIDS. He was last seen by me in the comprehensive care clinic on January 04, 2005, but he did see Hanane in April, when I was unable to get to clinic because of downed trees. He has been doing well since he was last seen. 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 He has been physically active, though, and has been downhill skiing at least once a week. He has had some injuriesrelated to this and had a recent fall where he jammed his hand and hadsome significant bleeding there, also bruised his anterior shins. In general, he feels that his energy level is good and that his motor strength for skiing is actually improving with increased activity. His appetite has been good. He has not had any acute illnesses. He has had some chills, but no fevers or night sweats. He has an occasional headache, nothing consistent. He has noted some blurry vision on occasion, but this has not been a significant change. He i s smoking 1-2 packs of cigarettes perday. He is using less alcohol. He is not drinking on a daily basis. He thinks he has used about a gallon since he was last seen by Hanane in April, maybe even since he saw me in December. He denies any oral lesions, dysphagia or odynophagia. No pulmonary complaints, no problems with abdominal pain, no nausea, vomiting or diarrhea, no difficulty urinating, no problems with numbness or tingling, no significant rash. He has not noted any bleeding or bruising symptoms. He says he is taking his medications regularly and has not missed any doses. He is takin. Sustiva 600 mg. once daily. 2. Zerit 40 mg. twice daily. 3. Dapsone 100 mg. daily. 4. Tenofovir 300 mg. once daily. 5. Diflucan 200 mg. daily. 6. Epivir 300 mg. once daily. 7. Advil since the skiing accident. OBJECTIVE: On physical examination, weight 71 kilos, afebrile, BP 138/86. He looks well, nontoxic and in no acute distress. He looks thinner, but his weight is up a bit. Pupils equal and reactive, sclerae nonicteric, conjunctivae pink, no oral lesions, no cervical or supraclavicular lymphadenopathy. Neck is supple, no spinal tenderness. Lungs are clear to auscultation and percussion. Cardiac examreveals a regular rhythm without murmurs, rubs or gallops. Abdomen: Bowel sounds present, soft and nontender. I could not appreciate any hepatosplenomegaly, no masses. Extremities are without edema or cyanosis. He has a chronic clubbing appearance of the fingers, which appears to be inherited, and his nails are discolored. Pulses are 2+, motor strength is equal bilaterally and reflexes are equal bilaterally. He has some decrease in vibratory sense on the distal foot bilaterally, but he appears to have intact Achilles reflexes. Laboratory studies done in preparation for this visit, chemistries, blood sugar is normal, creatinine was 1, ALT was minimally elevated at 69, with a normal AST and alk phos. Electrolytes were unremarkable. Lipid panel revealed cholesterol 135, triglycerides 242, HDL 20, LDL 93. CBC was unremarkable. Viral load was undetectable, CD4 count 343 and 14%. ASSESSMENT AND PLAN: 1. HIV positive. He is S/P cryptococcal meningitis. He seems to be doing quite well on the present antiretrovirals. He says he is taking them regularlyand he is having a good response in terms of undetectable viral load, and his CD4 count is fairly stable to improved. He seems to be tolerating the medication well without significant adverse effects. Plan to continue him on the present four drug regimen and would have him get repeat blood work and followup visit with me in the comprehensive careclinic in about four months. He should have blood work prior to that visit, with creatinine, liver panel, CBC, CD4 count, and an ultrasensitive viral load. The only consideration would be could he stop the PCP prophylaxis. Although his CD4 count has been over 200 for more than six months now, his percent does remain quite low and so will plan to leave him on the dapsone at this time. 2. History of cryptococcal meningitis. He seems to be doing well. With his CD4 count over 200, we would consider stopping the fluconazole, but again, with the low percent, I am a little nervous and so will leave him on the fluconazole for now, but we will reconsider discontinuation of prophylactic therapy at the time of his next visit. 3. Chronic hepatitis with hepatitis C and hepatitis B. His transaminases have been under fairly good control. At the time of his biopsy, the activity seemed to be predominantly hepatitis B.He is on Epivir and Viread. I am a little concerned that his ALT is up slightly and I think we will need to continue to monitor this on therapy. I am encouraged that he has decreased his alcohol use. 4. Lip lesion. This has not recurred. 5. Tobacco use. I discussed again with him about quitting smoking. He is not ready yet, but we talked about the patches and a support network for this. He will consider this. 6. Abnormal lipid panel. He is male, a heavy smoker, does not have hypertension or diabetes, no family history of premature heart disease, but I think because of his smoking, I am a bit concerned about his lipids, although his lipid panel is only remarkable for mildly elevated triglycerides and a low HDL. He has been more active and I hope that he will continue to do this. I would have a low threshold to add something for his triglycerides and to try to get his HDL up. I would like to add Niacin, but I am not sure if he would tolerate that. I am reluctant to give him things that are hepatically metabolized with his chronic liver disease In view of the fact that his major risk factor is smoking, will hold off at this time, but will try to see if we can convince him to try Niacin in the near future. Signed by Juli Franz MD 09/01/2005 13:48 Sandy Ortega MD Juli Franz MD - Juli Franz MD P - MR Job ID: [id number] Document ID: [id number] cc: [facility] Hanane Pollock NP documented in this encounter Plan of Treatment Not on file documented as of this encounter Visit Diagnoses Not on filedocumented in this encounter Care Teams Neon Sign Worker Relationship Specialty Start Date End Date Hanane Pollock NP [facility] [address] [place] [address] PCP - General 01/30/09 02/23/19 documented as of this encounter
--- OUTSIDE RECORDS SUMMARY | 2024-05-05 14:01 | XMS_ITS | Encounter Summary ---
Author Organization [facility] Address [facility] [place] [address] Care Team Providers Care Setup Technician Name Role Phone Sabrina Jerome CABLE DISPATCHER Primary Care Provider [phone] Reason for Referral * Consultation (Routine) - Closed Specialty Diagnoses / Procedures Referred By Contac t Referred To Contact Dermatology Diagnoses Pilar cyst of scalp Singh Bhatt MD [facility] [address] [place] [address] Tara Choi, burr sander ID Status Reason Start Date Expiration Date V isits Requested Visits Authorized [id number] Closed Consult, Test & Treat 05/10/2022 05/10/2023 1 1 Reason for Visit * Consultation (Routine) - Closed Specialty Diagnoses / Procedures Referred By Contac t Referred To Contact Dermatology Diagnoses Sebaceous cyst Skin tags, anus or rectum Papule Sabrina Jerome, CABLE DISPATCHER [address] [place] [address] [facility] [address] [place] [address] Referral ID Status Reason Start Date Expiration Date V isits Requested Visits Authorized [id number] Closed Consult, Test & Treat PCP Updated and/or Approved 01/02/2022 01/02/2023 12 12 Encounter Details Date Type Department Care Team (Late st Contact Info) Description 05/10/2022 2:20 PM EDT Office Visit Dermatology at [facility] [address] [place] [id number] Singh Bhatt MD [facility] DR [address] [place] [address] Pilar cyst of scalp; Clouston syndrome Social History Tobacco Use Types Packs/Day Years Used Date Smoking Tobacco: Every Day Cigarettes 0.5 15 Smokeless Tobacco: Never Sex and Gender Information Value Date Recorded Sex Assigned at Not on file Gender Identity Not on file Sexual Orientation Not on file documented as of this encounter Progress Notes * Singh Bhatt MD - 05/10/2022 2:20 PM EDT Images from the original note were not included. DEPARTMENT OF DERMATOLOGY Medical Dermatology Clinic Note Provider: Singh Bhatt MD Patient's preferred name Guanakito Preferred contact method for results []Phone []myD-H []Letter Detailed phone message OK? Y Are there any other people with whom we may discuss your care? 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 Patient is referred to the clinic at the request of Sabrina Jerome for full skin exam. -he returns today after 5 years for a skin exam in the setting of warts, a pilar cyst and various brown spots on trunk. None that bleed, itch or are bothersome but on the left medial ankle he believes he has a wart. Review of Systems: General: Feeling well. Skin: No other skin concerns. Medications: Reviewed in eD-H Allergies: Reviewed in eD-H Skin Examination: Full skin examination: Patient asked to undress to their comfort level. Verbalized that the provider???s preference is that the patient remove all clothing and that the provider will not examine areas patient elects to keep covered. Patient elects to keep underwear on and have the following examined: scalp, hair, face, ears, neck, chest, axillae, abdomen, back, and upper and lower extremities. Genitalia and buttocks were examined. 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. 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 Benign Nevi - Scattered medium-brown macules and papules on the trunk and extremities. - Reassured of benign appearance on exam today. #. Dermatofibroma - 0.4mm hyperpigmented papules with stellate center on dermoscopy and dimple sign on the left lateral ankle X1 -pt reassured that this is a benign condition and no further intervention required #. Pilar Cyst - Firm subcutaneous nodule(s) on the left temporal scalp. - Discussed benign etiology although can be removed surgically. - Joint decision pursue excision in the future due to bothersome nature. Chart routed to surgery assistant secretary for scheduling of excision. Figure 1 Photo(s) taken and charted with patient's verbal consent. Other: ??? N/A RTC: 1 year for FSE. Referral placed for Pilar Cyst Excision. []Note routed to assistant secretary [x]Recall placed in scheduling system []Appointment scheduled at checkout Scribe attestation: WALDEMAR Macario has performed the documentation for this encounter inthe presence of and acting as a scribe for Singh Bhatt MD. I performed the above scribed service and agree with the accuracy of the documentation in this encounter. Reviewed and signed by: Singh Bhatt MD Dermatology [facility] Patient seen and evaluated with staff hay sorter: Yan Lockett MD Department of Dermatology [facility] * Yan Lockett MD - 05/10/2022 2:20 PM EDT I directly supervised Dr. Bhatt in the care of this patient. I saw and evaluated this patient with Dr. Bhatt. He presented the history and physical exam detailsto me, then we saw the patient together and I confirmed these findings. I agree with details as written. My physical examination confirms his findings. The assessment and plan were formulated in discussion with me at the time of visit and I agree withthem as documented. 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
--- OUTSIDE RECORDS SUMMARY | 2024-05-05 14:01 | XMS_ITS | Encounter Summary ---
Author Organization [facility] Address [address] [place] [address] Care Team Providers Care Associate Professor Of Law Name Role Phone Unavailable Primary Care Provider Unavailabl e Encounter Details Date Type Department Care Team (Late st Contact Info) Description 05/25/2004 13:30 EST Hospital Encounter [facility] - Other [address] [place] [address] Daniel Blum MD [address] [place] [address], [address] [place] [id number] Social History Tobacco Use Types Packs/Day Years [...] Pending Results Name Type Priority Associated Diagnoses Date /Time OUTSIDE CD - OTHER CHEST Imaging 04/30/2011 16:23 EDT Scheduled Orders Name Type Priority Associated Diagnoses Orde r Schedule OUTSIDE CD - OTHER CHEST Imaging For medications that can be administered at any time during the hospitalization for visit such as immunizations. for 1 Occurrences starting 04/30/2011 documented as of this encounter Procedures Procedure Name Priority Date/Time Associated Diagnosis Comments SECONDARY READ CHEST CT 04/30/2011 11:40 EDT documented in this encounter Results * SECONDARY READ CHEST CT (04/30/2011 11:40 EDT) Anatomical Region Laterality Modality Other 04/30/2011 11:4 0 EDT 04/30/2011 11:59 EDT Narrative 04/30/2011 11:59 EDT History: ?? [facility] cd * 04/16/11 ct chest SECONDARY READ CHEST Technique: A single breath-hold helical CT acquisition was performed through the chest on a multidetector-row scanner with a reconstructed slice thickness of 1 mm and retrospectively reconstructed 1.0 mm thick sections with 0.50 mm overlapping intervals. ??The scans were obtained from the lung apices through the bases during the intravenous administration of nonionic contrast. Scans were reviewed on a dedicated PACS workstation for analysis. Comparisons: None. Findings: The evaluation of the chest wall shows no abnormalities. The heart and pericardium are normal. There are no enlarged mediastinal or hilar lymph nodes identified. The mediastinal and hilar vessels appear normal. No pleural abnormalities are seen. The airways and lungs show a pattern of bilateral upper lobe paraseptal emphysema. There is a lobulated 2.5 cm in greatest diameter lesion in the right lung apex that may contain an area of eccentric cavitation or perhaps engulfs an area of emphysema. This is concerning for malignancy although infection would be an additional consideration. There are 2 additional lesions within the right upper lobe, a nodular lesion approximately 8 mm in diameter within the anterior segment of the right upper lobe and a 3rd irregular density approximately 8 mm in largest dimension in the axillary subsegment of the anterior segment of the right upper lobe. The remaining portions of both lung show some diffuse mild airways thickening but no other focal lesions are identified. Scans of the upper abdomen are limited and are unremarkable. Impression: 1. 2.5 cm lobulated lesion in the right lung apex concerning for malignancy. Infectious granulomatous disease would be an additional but less likely consideration. 2. Two additional small subcentimeter lesions in the right upper lobe which could be infectious or malignant. 3. Diffuse mild airways thickening. 4. Bilateral upper lobe paraseptal emphysema. Note: The outside report is not available at the time of this reading. Procedure Note 04/30/2011 History: [facility] cd * 04/16/11 ct chest SECONDARY READ CHEST Technique: A single breath-hold helical CT acquisition was performed through the chest on a multidetector-row scanner with a reconstructed slice thickness of 1 mm and retrospectively reconstructed 1.0 mm thick sections with 0.50 mm overlapping intervals. The scans were obtained from the lung apices through the bases during the intravenous administration of nonionic contrast. Scans were reviewed on a dedicated PACS workstation for analysis. Comparisons: None. Findings: The evaluation of the chest wall shows no abnormalities. The heart and pericardium are normal. There are no enlarged mediastinal or hilar lymph nodes identified. The mediastinal and hilar vessels appear normal. No pleural abnormalities are seen. The airways and lungs show a pattern of bilateral upper lobe paraseptal emphysema. There is a lobulated 2.5 cm in greatest diameter lesion in the right lung apex that may contain an area of eccentric cavitation or perhaps engulfs an area of emphysema. This is concerning for malignancy although infection would be an additional consideration. There are 2 additional lesions within the right upper lobe, a nodular lesion approximately 8 mm in diameter within the anterior segment of the right upper lobe and a 3rd irregular density approximately 8 mm in largest dimension in the axillary subsegment of the anterior segment of the right upper lobe. The remaining portions of both lung show some diffuse mild airways thickening but no other focal lesions are identified. Scans of the upper abdomen are limited and are unremarkable. Impression: 1. 2.5 cm lobulated lesion in the right lung apex concerning for malignancy. Infectious granulomatous disease would be an additional but less likely consideration. 2. Two additional small subcentimeter lesions in the right upper lobe which could be infectious or malignant. 3. Diffuse mild airways thickening. 4. Bilateral upper lobe paraseptal emphysema. Note: The outside report is not available at the time of this reading. Juli CULLEN OTHER IMAGING OR DERABLES documented in this encounter Visit Diagnoses Not on filedocumented in this encounter
--- OUTSIDE RECORDS SUMMARY | 2024-05-05 14:01 | XMS_ITS | Encounter Summary ---
Author Organization [facility] Address [address] [place] [address] Care Team Providers Care Barge Worker Name Role Phone Unavailable Primary Care Provider Unavailabl e Encounter Details Date Type Department Care Team (Late st Contact Info) Description 05/22/2004 9:05 EST - 05/22/2004 11:59 EST Hospital Encounter [facility] - Other [address] [place] [address] Daniel Blum MD [address] [facility], [facility] [place] [address] [place] [phone] Discharge Disposition: Auto Discharge Social History Tobacco Use Types Packs/Day Years [...]
--- OUTSIDE RECORDS SUMMARY | 2024-05-05 14:01 | XMS_ITS | Encounter Summary ---
Author Organization [facility] Address [address] [place] [address] Care Team Providers Care Menagerie Caretaker Name Role Phone Hanane Pollock NP Primary Care Provider [phone] Encounter Details Date Type Department Care Team (Late st Contact Info) Description 02/19/2006 Before PRISM Converted Visit (Maple) [facility] - Maple conversion [address] [place] [address] Juli Franz MD Social History Tobacco Use Types Packs/Day Years Used Date Smoking Tobacco: Never Assessed Sex and Gender Information Value Date Recorded Sex Assigned at Not on file Gender Identity Not on file Sexual Orientation Not on file documented as of this encounter Progress Notes * Juli Franz MD - 09/19/2009 1710 EST DIVISION OF INFECTIOUS DISEASE PROGRESS/FOLLOWUP NOTE - 02/19/2006 [facility] SUBJECTIVE: Guanakito presents for reevaluation of his HIV disease/AIDS. [facility]. Since he was last seen, it sounds like he has been feeling well. He denies any acute illness. He says his appetite has been good, as has his energy level, and he has not been havingany localizing complaints. He has had very occasional headaches, but nothing persistent. No neck pain or stiffness. No persistent nausea. He does have some vomiting in the morning on occasion when hehas been coughing severely which can be contribute to the vomiting. He is not having any vomiting at any other times. He denies any abdominal pain. No problems with diarrhea. No difficulty urinating.He has some rash now that he has been out [...] hard liquor. He denies any localizing neurologic complaints.He is not having any problems with fevers, [...] 70.7 kg. He was afebrile with a temperature of 96.5??. Blood pressure was 124/80. He is nontoxic and in no acute distress, alert and appropriate. Pupils equal and reactive. Sclerae nonicteric. Conjunctivae pink without hemorrhages. He had no oral lesions. He has no cervical or supraclavicular lymphadenopathy. He had some rhonchi anteriorly on the right, otherwise lungs were clear. Cardiac exam revealed a regular rhythm without murmurs, rubs or gallops. Bowel sounds were present. Abdomen was soft, nontender. No hepatosplenomegaly or masses appreciated. Extremities are without edema. Skin without acute rash. On neurologic examination, he had minimal decreased vibratory sense in the distal foot bilaterally, but he had intact Achilles reflexes and reflexes were equal bilaterally throughout. Laboratory studies done in preparation for this visit included viral load undetectable at less than50 copies, CD4 count 320 and 13%. His [...] I think that there has been some decreasein the CD4 counts with the change in the technology used to measure this, but his CD4 count looks fairlystable. His viral load remains undetectable. It sounds like he has been remarkably good in terms of taking his medications regularly, and he seems to [...] hepatitis C and hepatitis B with cirrhosis onbiopsy, although he continues to use alcohol. We [...] a decrease in his HDL. I do thinkif he quit smoking that would be the most important thing for him, and I would not add any additional medications for his lipids at this time. Signed by Juli Franz MD 03/04/2006 14:00 Sandy Ortega MD Juli Franz MD - Juli Franz MD P - Job ID: [id number] Document ID: [id number] cc: Hanane Pollock NP documented in this encounter Plan of Treatment Not on file documented as of this encounter Visit Diagnoses Not on filedocumented in this encounter Care Teams Menagerie Caretaker Relationship Specialty Start Date End Date Hanane Pollock NP [facility] [address] [place] [address] PCP - General 01/30/09 02/23/19 documented as of this encounter
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
--- OUTSIDE RECORDS SUMMARY | 2024-05-05 14:01 | XMS_ITS | Encounter Summary ---
Author Organization [facility] Address [address] [place] [address] Care Team Providers Care Air Chief Marshal Name Role Phone Unavailable Primary Care Provider Unavailabl e Encounter Details Date Type Department Care Team (Latest Contact Info) Description 12/01/2002 15:57 EDT Hospital Encounter [facility] - Other [address] [place] [address] Akhil Chapman MD Discharge Disposition: Auto Discharge Social History Tobacco [...]
--- OUTSIDE RECORDS SUMMARY | 2024-05-05 14:01 | XMS_ITS | Encounter Summary ---
[facility] [place] [address] Care Team Providers Care Warehouse Supervisor Name Role Phone Sabrina Jerome APRN Primary Care Provider [phone] Encounter Details Date Type Department Care Team (Latest Contact Info) Description 06/25/2022 Travel Social History Tobacco Use Types Packs/Day [...] on filedocumented in this encounter Care Teams Warehouse Supervisor Relationship Specialty Start Date End Date Sabrina Jerome APRN PCP - General Family Medicine 01/02/22 documented as of this encounter
--- OUTSIDE RECORDS SUMMARY | 2024-05-05 14:01 | XMS_ITS | Encounter Summary ---
Author Organization [facility] Address [address] [place] [address] Care Team Providers Care Brick Layer Name Role Phone Hanane Pollock NP Primary Care Provider Encounter Details Date Type Department Care Team (Late st Contact Info) Description 05/22/2004 Results Only [facility] Dermatology [address]th [address] [address] Artur Blum MD [address] [place] [address], [address] [place] [address] Social History Tobacco Use Types [...] Date/Time Associated Diagnosis Comments SURGICAL PATHOLOGY Routine 05/22/2004 0:00 EST documented in this encounter Results * SURGICAL PATHOLOGY (05/22/2004 0:00 EST) Pathology Report: SURGICAL PATHOLOGY REPORT Reports generated via electronic interface contain original data; however they are lacking the format of the original report. Caution should be taken when reading/interpreti ng unformatted reports. Name: ? KALEB CEDILLO ? Accession #: ? [id number] ? : ? 1970 (Age: 34) ??M ? Collect Date: ? 05/22/2004 ? Location: ? [facility] ? Receive Date: ? 05/28/2004 ? Provider: ARTUR BLUM MD Copy to: ? Final Pathologic Diagnosis: ? Skin of lip, shave biopsy: - Lichenoid keratosis. Document reviewed and electronically signed by: TEVIN SHELL MD Report ??Date: 05/29/2004 15:13 By the signature above, the attending physician certifies that he/she has personally conducted a gross and/or microscopic examination of the described specimens and rendered or confirmed the above diagnosis. Specimen(s) Received: ? Skin, lip Clinical History: ? garland GREGORY; clinical diagnosis code: ??238.2 Gross Description: ? Received in formalin labelled Snide is an irregular 1.0 x 0.6 x less than 0.1 cm white-lazcano skin shave which displays a granular, focally crusted epidermis. ??The specimen is inked, sectioned, and submitted in its entirety in one cassette. ??(Isaiah Gallo)/[facility] End of Report BRAD MANJARREZ 05/22/2004 05/28/2004 9:4 0 EST Artur Blum MD PATHOLOGY ORDERAB LES BRAD MANJARREZ [address] [place] [address] documented in this encounter Visit Diagnoses Not on filedocumented in this encounter Care Teams Brick Layer Relationship Specialty Start Date End Date Hanane Pollock NP [facility] [address] [place] [address] PCP - General 01/30/09 02/23/19 documented as of this encounter
--- OUTSIDE RECORDS SUMMARY | 2024-05-05 14:01 | XMS_ITS | Encounter Summary ---
Author Organization [facility] Address [address] [place] [address] Care Team Providers Care Practice Architect Name Role Phone Hanane Pollock NP Primary Care Provider [phone] Unknown, Provider Primary Care Provider [phone] None, Provider Primary Care Provider Sabrina Kiran DESK MONITOR Primary Care Provider [phone] Encounter Details Date Type Department Care Team (Late st Contact Info) Description 11/30/2002 Before PRISM Converted Visit (Maple) [facility] Infectious Disease - [address] [address] Juli Franz MD Social History Tobacco Use Types Packs/Day Years Used Date Smoking Tobacco: Never Assessed Sex and Gender Information Value Date Recorded Sex Assigned at Not on file Gender Identity Not on file Sexual Orientation Not on file documented as of this encounter Plan of Treatment Not on file documented as of this encounter Procedures Procedure Name Priority Date/Time Associated Diagnosis Comments RAD US GUIDANCE, BX, ASP, INJ, LOC Routine 11/30/2002 13:58 EDT documented in this encounter Results * RAD US GUIDANCE, BX, ASP, INJ, LOC (11/30/2002 13:58 EDT) Anatomical Region Laterality Modality Other 11/30/2002 13:5 8 EDT Impressions 03/28/2009 2:38 EDT IMPRESSION: 1. Successful core biopsy of the right lobe of the liver. 2. No focal liver lesions were identified. Dr. Yan Strickland was present for the entire procedure. paris Narrative 03/28/2009 2:38 EDT US LIVER BX. AIDS W/ H/O CRYPTOCOCCAL MENNIGITIS. KNOWN HBV - HCV + ??P T W/INCREASED ST/LT ON HAART. R/O FLARE OF VIRAL HEPATITIS VS DRUG TOX ICITY VS STEATOHEPATITIS ? ULTRASOUND-GUIDED BIOPSY: 11/30/02 13:00 HOURS CLINICAL INDICATION: Ultrasound of the liver; history of AIDS with history of cryptococcal meningitis; known hepatitis B and hepatitis C virus. The risks and benefits of the procedure were explained to the patient and informed consent was obtained. Survey of the liver was performed with ultrasound and no focal lesions were identified. Ultrasound localization of the right lobe was performed and two 18 gauge core biopsies were performed in the right lobe. The patient tolerated the procedure well and there were no complications. Procedure Note Juan Pablo Sandoval MD / Yan Strickland, DO - 03/28/2009 US LIVER BX. AIDS W/ H/O CRYPTOCOCCAL MENNIGITIS. KNOWN HBV - HCV + P T W/INCREASED ST/LT ON HAART. R/O FLARE OF VIRAL HEPATITIS VS DRUG TOX ICITY VS STEATOHEPATITIS ? ULTRASOUND-GUIDED BIOPSY: 11/30/02 13:00 HOURS CLINICAL INDICATION: Ultrasound of the liver; history of AIDS with history of cryptococcal meningitis; known hepatitis B and hepatitis C virus. The risks and benefits of the procedure were explained to the patient and informed consent was obtained. Survey of the liver was performed with ultrasound and no focal lesions were identified. Ultrasound localization of the right lobe was performed and two 18 gauge core biopsies were performed in the right lobe. The patient tolerated the procedure well and there were no complications. IMPRESSION IMPRESSION: 1. Successful core biopsy of the right lobe of the liver. 2. No focal liver lesions were identified. Dr. Yan Strickland was present for the entire procedure. paris Juli Franz MD IMG US ORDERABLES documented in this encounter Visit Diagnoses Not on filedocumented in this encounter Care Teams Practice Architect Relationship Specialty Start Date End Date Hanane Pollock NP [facility] [address] [place] [address] PCP - General 01/30/09 02/23/19 Unknown, Provider, [facility] [address] [place] [address] PCP - General 02/24/19 03/01/20 None, Provider PCP - General 03/02/20 03/28/21 Sabrina Jerome NP [address] [place] [phone] PCP - General 03/29/21 documented as of this encounter
--- OUTSIDE RECORDS SUMMARY | 2024-05-05 14:01 | XMS_ITS | Encounter Summary ---
Author Organization [facility] Address [address] [place] [address] Care Team Providers Care Subgrade Roller Operator Name Role Phone Unavailable Primary Care Provider Unavailabl e Encounter Details Date Type Department Care Team (Latest Contact Info) Description 11/30/2002 11:59 EDT Hospital Encounter [facility] Radiology - Main [place] [address] [place] [address] Juli Franz MD Discharge Disposition: Home or [...]
--- OUTSIDE RECORDS SUMMARY | 2024-05-05 14:01 | XMS_ITS | Encounter Summary ---
Author Organization [facility] Address [address] [place] [address] Care Team Providers Care Attractions Associate Name Role Phone Hanane Pollock NP Primary Care Provider [phone] Encounter Details Date Type Department Care Team (Late st Contact Info) Description 04/20/2004 Results Only [facility] Dermatology [address]th [address] [address] Artur Blum MD [address] [place] [address], [address] [place] [address] Social History Tobacco Use Types [...] Date/Time Associated Diagnosis Comments SURGICAL PATHOLOGY Routine 04/20/2004 0:00 EDT documented in this encounter Results * SURGICAL PATHOLOGY (04/20/2004 0:00 EDT) Pathology Report: SURGICAL PATHOLOGY REPORT Reports generated via electronic interface contain original data; however they are lacking the format of the original report. Caution should be taken when reading/interpreti ng unformatted reports. Name: ? KALEB CEDILLO ? Accession #: ? [id number] ? : ? 1970 (Age: 34) ??M ? Collect Date: ? 04/20/2004 ? Location: ? [facility] ? Receive Date: ? 04/21/2004 ? Provider: ARTUR BLUM MD Copy to: [...] confirmed the above diagnosis. Specimen(s) Received: ? Skin lip Clinical History: ? BCC, SCC, other; clinical diagnosis code: 238.2 Gross Description: ? Received in formalin labelled Snide and lower lip is a 0.4 x 0.4 x 0.2 cm shave biopsy of a lazcano papule. ??The specimen is bisected and entirely submitted in one cassette. ??(Dr. Leal-)/[facility] End of Report BRAD MANJARREZ 04/20/2004 04/21/2004 8:5 8 EDT Artur Blum MD PATHOLOGY ORDERAB LES BRAD MANJARREZ [address] [place] [address] documented in this encounter Visit Diagnoses Not on filedocumented in this encounter Care Teams Attractions Associate Relationship Specialty Start Date End Date Hanane Pollock NP [facility] [address] [place] [id number] PCP - General 01/30/09 02/23/19 documented as of this encounter
--- OUTSIDE RECORDS SUMMARY | 2024-05-05 14:01 | XMS_ITS | Encounter Summary ---
Author Organization [facility] [place] [address] Care Team Providers Care Audio Visual Coordinator Name Role Phone Sabrina Jerome APRN Primary Care Provider [phone] Encounter Details Date Type Department Care Team (Latest Contact Info) Description 02/25/2023 Travel Social History Tobacco Use Types Packs/Day Years Used Date Smoking Tobacco: Every Day Cigarettes 1 15 Smokeless Tobacco: Never Sex and Gender Information Value Date Recorded Sex Assigned at Not on file Gender Identity Not on file Sexual Orientation Not on file documented as of this encounter Plan of Treatment Not on file documented as of this encounter Visit Diagnoses Not on filedocumented in this encounter Care Teams Audio Visual Coordinator Relationship Specialty Start Date End Date Sabrina Jerome APRN PCP - General Family Medicine 01/02/22 documented as of this encounter
[2024-05-05 15:14] LABS: Hemoglobin A1C 5.5 % (<5.7)
[2024-05-05 15:35] LABS: Calculated LDL 143 mg/dL (<100); Cholesterol 221 mg/dL (<200); HDL Cholesterol 54 mg/dL (40-60); Triglyceride 124 mg/dL (<150); Vitamin D 25 Total 30.8 ng/mL (30-100)
== END 2024-05-05 13:57 | disposition home or self-care (01) ==
LOC: NCHCN 13:56
PROVIDERS: PCP Nurse Practitioner Family; Visit Provider Physician Assistant Medical
DX: E78.2 Mixed hyperlipidemia (principal); R73.03 Prediabetes; M85.89 Other specified disorders of bone density and structure, multiple sites
CPT/HCPCS: 80061; 82306; 83036

== ENCOUNTER 2024-05-27 13:02 | Outpatient (CLI) | payer MEDICARE, MEDICAID, SELFPAY ==
[2024-05-27 12:49] LABS: Abs Immature Grans 0.03 10^3/uL (0.0-0.06); Absolute Basophil Count 0.06 10^3/uL (0.0-0.2); Absolute Eosinophil Count 0.35 10^3/uL (0.0-0.7); Absolute Monocyte Count 0.78 10^3/uL (0.1-0.8); Basophils % 0.8 %; Eosinophils % 4.4 %; HCT 50.5 % (40.0-50.0); HGB 17.2 g/dL (13.5-17.5); Immature Grans % 0.4 %; Lymphocytes % 31.6 %; MCHC 34.1 % (32.0-36.0); MCV 97 fL (80-95); MPV 9.5 fL (8.0-11.0); Monocytes % 9.8 %; Platelet Count 251 10^3/uL (130-400); RBC 5.21 10^6/uL (4.36-5.78); RDW 13.9 % (11.8-14.1); RDW-SD 49.9 fL; WBC 7.92 10^3/uL (4.4-10.8)
--- OUTSIDE RECORDS SUMMARY | 2024-05-27 13:19 | XMS_ITS | Encounter Summary ---
Author Organization [facility] Address [address] [place] [address] Care Team Providers Care Photogrammetric Technician Name Role Phone Unknown, Provider MD Primary Care Provider Kimberly morrow None, Provider Primary Care Provider Sabrina Kiran PLASTIC SHAPER Primary Care Provider [phone] Encounter Details Date Type Department Care Team (Late st Contact Info) Description 06/14/2019 Lab Requisition [facility] Pathology & Laboratory Medicine - [address] [address] Santino Leal, [address] [place], [place] [id number] Encounter for other general examination Social History Tobacco Use Types Packs/Day Years Used Date Smoking Tobacco: Every Day Cigarettes Smokeless Tobacco: Never Alcohol Use Standard Drinks/Week Comments No 2 (1 standard drink = 0.6 oz pur e alcohol) 1 drink every 2 weeks Sex and Gender Information Value Date Recorded Sex Assigned at Not on file Legal Sex Male 18:27 EST Gender Identity Not on file Sexual Orientation Not on file documented as of this encounter Functional Status * Because of a physical, mental, or emotional condition, does this person have difficulty doing errands alone such as visiting a doctor's office or shopping? Answer Date of Assessment Author No 07/20/2015 15:13 EST documented as of this encounter Mental Status * Because of a physical, mental, or emotional condition, does this person have serious difficulty concentrating, remembering, or making decisions? Answer Entry Date Author No 07/20/2015 15:13 EST documented in this encounter Plan of Treatment Upcoming Encounters Date Type Department Care Team (Late st Contact Info) Description 05/31/2024 10:00 EST Telemedicine [facility] Infectious Disease - [address] [address] YovaniLit, DO 111 [facility], [address] [place] [address] documented as of this encounter Procedures Procedure [...] comment. - No dysplasia identified. 06/18/2019 15:45 [facility] at 1545 Diagnosis Comment Deeper sections have been examined. 06/18/2019 15:45 [facility] Clinical History History of HIV infection K13.70. Left soft palate lesion 06/18/2019 15:45 [facility] Attestation There was significant resident/fellow involvement in the diagnostic evaluation of this case. By the signature below, the attending physician certifies that they have personally conducted a gross and/or microscopic examination of the described specimens and rendered or confirmed the above diagnosis. 06/18/2019 15:45 [facility] at 1545 Gross Description A. Received in formalin labelled with proper patient identification (initials S, J) and L soft palate is a single lazcano-white tissue fragment (0.4 x 0.2 x 0.1 cm). Submitted intact in A1. RALEIGH BAILON 06/15/2019 07:58 06/18/2019 15:45 [facility] Resident/Hung w: Joycelyn Cardenas MD 06/18/2019 15:45 EST [facility] Scanned Images 06/18/2019 15:45 EST [facility] Tissue ENTIRE ORAL MUCOUS MEMBRANE / Unknown 06/14/2019 10:55 EST 06/14/2019 21:51 EST us Santino Leal DO PATHOLOGY ORDERABLES Fi nal Result [facility] [address] [place] [address] documented in this encounter Visit Diagnoses Diagnosis Encounter for other general examination documented in this encounter Care Teams Photogrammetric Technician Relationship Specialty Start Date End Date Unknown, Provider, PCP - General 02/24/19 03/01/20 None, Provider PCP - General 03/02/20 03/28/21 Sabrina Jerome, PLASTIC SHAPER [address] [place] [address] PCP - General 03/29/21 documented as of this encounter
--- OUTSIDE RECORDS SUMMARY | 2024-05-27 13:19 | XMS_ITS | Encounter Summary ---
Author Organization [facility] Address [address] [place] [address] Care Team Providers Care Manager Urology Name Role Phone Unknown, Provider MD Primary Care Provider Kimberly morrow None, Provider Primary Care Provider Sabrina Kiran CATALYST RECOVERY OPERATOR Primary Care Provider [phone] Encounter Details Date Type Department Care Team (Late st Contact Info) Description 08/11/2019 Lab Requisition [facility] Pathology & Laboratory Medicine - [address] [address] Unknown, Provider, Social History Tobacco Use Types [...] Contact Info) Description 05/31/2024 10:00 EST Telemedicine [facility] Infectious Disease - [address] [address] Lit Pina, DO 111 [facility], [address] [place] [address] documented as of this encounter Procedures Procedure Name Priority Date/Time Associated Diagnosis Comments T CELL SUBSETS Routine 08/11/2019 7:19 EST HIV 1 RNA QUANTITATION Routine 08/11/2019 7:19 EST documented in this encounter Results * HIV 1 RNA QUANTITATION (08/11/2019 7:19 EST) Pathologist [facility] HIV 1 RNA Quant 0 Undetected copies/mL 08/12/2019 15:51 EST [facility] Comment: Not Detected HIV-1 RNA level is <20 copies/mL. This assay cannot accurately quantify HIV-1RNA below this level. Blood VENOUS BLOOD / Unknown 08/11/2019 7:19 EST 08/11/2019 15:21 EST Narrative [facility] - 08/12/2019 15:51 EST The quantification range of this assay is 20 IU/mL to 10,000,000 IU/mL. ??Testing was performed on the PADILLA Ampliprep/PADILLA TaqMan HIV v2.0 ([employer] us Provider Unknown CHEMISTRY & BLOOD GAS ORDERA BLES Final Result [facility] [address] [place] [address] * (ABNORMAL) IMMUNODEFICIENCY PANEL (08/11/2019 7:19 EST) Pathologist [facility] % CD3 68 62 - 87 % 08/12/2019 16:47 EST [facility] % CD4 29(L) 35 - 63 % 08/12/2019 16:47 EST [facility] % CD8 38(H) 10 - 35 % 08/12/2019 16:47 EST [facility] Absolute CD4 836 329-1,427 cells/uL 08/12/2019 16:47 EST [facility] Blood VENOUS BLOOD / Unknown 08/11/2019 7:19 EST 08/11/2019 15:15 EST us Provider Unknown IMMUNOLOGY AND SEROLOGY SERGO REYES Final Result Performing Organization Address City/State/[facility] Co de Phone Number [facility] [address] [place] [address] documented in this encounter Visit Diagnoses Not on filedocumented in this encounter Care Teams Manager Urology Relationship Specialty Start Date End Date Unknown, Provider, PCP - General 02/24/19 03/01/20 None, Provider PCP - General 03/02/20 03/28/21 Sabrina Jerome, CATALYST RECOVERY OPERATOR [address] [place] [address] PCP - General 03/29/21 documented as of this encounter
--- OUTSIDE RECORDS SUMMARY | 2024-05-27 13:19 | XMS_ITS | Encounter Summary ---
Author Organization [facility] Address [address] [place] [address] Care Team Providers Care Garnett Machine Operator Name Role Phone Sabrina Jerome PAPERHANGER AND PAINTER Primary Care Provider [phone] Encounter Details Date Type Department Care Team (Latest Contact Info) Description 08/21/2023 Specialty Pharmacy [facility] [address] [place], [place] [phone] Frankie Mitchell [facility] Set up initial fill for HIV, Patient [...] 07/20/2015 15:13 EST documented in this encounter Ordered Prescriptions Prescription Sig Dispense Quantity Refills Last Filled Start Date End Date lisinopriL (PRINIVIL) 10 mg tablet Take 1 Tablet by mouth daily. 90 Tablet 3 08/22/2023 raltegravir (ISENTRESS HD) 600 mg tabletIndications:Acqu ired immunodeficiency syndrome (HCC-CMS) Take 2 Tablets by mouth daily. 180 Tablet 3 08/21/2023 emtricitabine-rilpivir ine-tenofovir alafenam (ODEFSEY) tabletIndications:Acqu ired immunodeficiency syndrome (HCC-CMS) Take 1 Tablet by mouth daily. Take with food. 90 Tablet 3 08/21/2023 documented in this encounter Progress Notes * Frankie Mitchell RP - 08/21/2023 0910 EST Discussed [facility] services with partner Greg Sampson. Patient has elected to enroll Odefsey and Raltegravir in [facility] Special[facility]???s clinical and dispensing services. Frankie Mitchell, PharmD Ambulatory Pharmacist [facility] Infectious Disease 08/21/2023 * Frankie Mitchell RP - 08/21/2023 0910 EST Spoke with Guanakito's partner Greg, who is also requesting that Guanakito's lisinopril 10 mg script be sentto [facility] mail-order pharmacy in combination with his HIV medications. Prescription sent electronically to patient's preferred pharmacy. Will route to Bharat Juan to investigate ERP enrollment. Will route to Dr. Pina for review and to update clinic staff at [facility] who may be unaware of pharmacy change. Frankie Mitchell, PharmD Ambulatory Pharmacist [facility] Infectious Disease 08/22/2023 Med Orders Placed This Visit and Additions to the Medication List Medications poiujiwifrmzh-sacurmpydxj-ecwmuwjxs alafenam (ODEFSEY) tablet Sig: Take 1 Tablet [...] * Bharat Juan - 08/21/2023 0910 EST [facility] - Patient Consent for ERP Guanakito Cedillo is a patient filling Isentress + Odefsey with [facility] and has agreed to enroll their non-specialty medications in our automatic refill program through Enhanced Refill Processing (ERP). Patient understands these medications will be automatically processed through the [facility] Mail Order program, 7 days prior to their next refill due date: yes Patient was instructed to call [facility] if they are prescribed a new medication that they would like to be mailed to them and/or added to ERP: yes Patient has a credit card on file in [employer] and consents to have it charged for these refillsautomatically: yes [facility] will review the patient's ERP profile in [employer] during each [facility] outreach calls. Patient understands that they still must speak with [facility] to process their specialty refill delivery: yes Medications to enroll in ERP: Lisinopril Bharat Juan 08/22/2023 * Erika House RPH - 08/21/2023 0910 EST I spoke with partner, Greg, they received delivery from [facility] today for Delfina for 30 days- he asked me to call and cancel this and Isentress with [facility]. I did this today. Rxs at [facility] are canceled and he will get both of these from [facility]. documented in this encounter Plan of Treatment Upcoming Encounters Date Type Department Care Team (Late st Contact Info) Description 05/31/2024 10:00 EST Telemedicine [facility] Infectious Disease - [address] [phone] Lit Pina, DO 111 [facility], [address] [place] [address] documented as of this encounter Visit Diagnoses Diagnosis Acquired immunodeficiency syndrome ([facility])- Primary Human immunodeficiency virus [HIV] disease [...] documented as of this encounter Care Teams Garnett Machine Operator Relationship Specialty Start Date End Date Sabrina Jerome NP [address] [place] [address] PCP - General 03/29/21 documented as of this encounter
--- OUTSIDE RECORDS SUMMARY | 2024-05-27 13:19 | XMS_ITS | Encounter Summary ---
Author Organization [facility] Address [address] [place] [address] Care Team Providers Care Lumber Loader Name Role Phone Sabrina Jerome DRUM SAW OPERATOR Primary Care Provider [phone] Reason for Visit * Reason Comments Follow-up Encounter Details Date Type Department Care Team (Late st Contact Info) Description 11/10/2023 9:30 EDT Telemedicine [facility] Infectious Disease - [address] [address] Lit Pina, DO 111 [facility], [address] [place] [phone] Asymptomatic HIV infection ([facility]) (Primary Dx) Social History Tobacco Use [...] 07/20/2015 15:13 EST documented in this encounter Progress Notes * Lit iPna, DO - 11/10/2023 0930 EDT I spent [...] lives) Patient location state: Visit Location State: [place] The location of the provider: Office-BVT Provider location state: Visit Location State: [place] The following people and their roles were [...] relationship. His partner (Fernando) is followed at [facility] as well and they are typically seen together. Busy with work but doesn't seem overwhelmed. There seems to be plenty of work to do as well. No imminent plans for detention. 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 Td 2021, [place] Apr 2019,looked good so repeat in 10 years. Pneumovax 2018, prevnar 2014. COVID 2020, due for [...] Contact Info) Description 05/31/2024 10:00 EST Telemedicine [facility] Infectious Disease - [address] [address] Lit Pina DO 111 [facility], [address] [place] [address] documented as of this encounter Visit Diagnoses Diagnosis Asymptomatic HIV infection (HCC-CMS)- Primary Asymptomatic human immunodeficiency virus (HIV) infection status documented in this encounter Care Teams Lumber Loader Relationship Specialty Start Date End Date Sabrina Jerome NP [address] [place] [address] PCP - General 03/29/21 documented as of this encounter
--- OUTSIDE RECORDS SUMMARY | 2024-05-27 13:19 | XMS_ITS | Encounter Summary ---
Author Organization [facility] Address [address] [place] [address] Care Team Providers Care Hand Compositor Name Role Phone None, Provider Primary Care Provider Sabrina Kiran ELECTRICAL APPRENTICE Primary Care Provider [phone] Encounter Details Date Type Department Care Team (Late st Contact Info) Description 07/28/2020 Lab Requisition [facility] Pathology & Laboratory Medicine - [facility] [address] [place] [address] Outr Resulting Lab, Provider Social History Tobacco [...] Contact Info) Description 05/31/2024 10:00 EST Telemedicine [facility] Infectious Disease - [place] [id number] [facility] [place] [address] Lit Pina, DO 111 [facility] [address] [place] [phone] documented as of this encounter Procedures Procedure Name Priority Date/Time Associated Diagnosis Comments HIV 1 RNA QUANTITATION Routine 07/27/2020 16:30 EST T CELL SUBSETS Routine 07/27/2020 16:30 EST documented in this encounter Results * HIV 1 RNA QUANTITATION (07/27/2020 16:30 EST) Pathologist [facility] HIV RNA Detection, Qual Undetected Undetected copies/mL 07/31/2020 14:55 EST [facility] Blood VENOUS BLOOD / Unknown 07/27/2020 16:30 EST 07/28/2020 17:29 EST Narrative [facility] - 07/31/2020 14:55 EST The quantification range of this assay is 20 IU/mL to 10,000,000 IU/mL. ??Testing was performed on the PADILLA Ampliprep/PADILLA TaqMan HIV v2.0 ([employer] us Provider Outr Resulting Lab CHEMISTRY & BLOOD GA S ORDERABLES Final Result [facility] [address] [place] [address] * IMMUNODEFICIENCY PANEL (07/27/2020 16:30 EST) Pathologist [facility] % CD3 76 62 - 87 % 07/31/2020 16:28 EST [facility] % CD4 39 35 - 63 % 07/31/2020 16:28 EST [facility] % CD8 35 10 - 35 % 07/31/2020 16:28 [facility] Absolute CD4 1,398 329-1,427 Cells/uL 07/31/2020 16:28 EST [facility] Blood VENOUS BLOOD / Unknown 07/27/2020 16:30 EST 07/28/2020 17:27 EST us Provider Outr Resulting Lab IMMUNOLOGY AND SEROL OGY ORDERABLES Final Result Performing Organization Address City/State/[facility] Co de Phone Number [facility] [address] [place] [address] documented in this encounter Visit Diagnoses Not on filedocumented in this encounter Care Teams Hand Compositor Relationship Specialty Start Date End Date None, Provider PCP - General 03/02/20 03/28/21 Sabrina Jerome, ELECTRICAL APPRENTICE [address] [place] [phone] PCP - General 03/29/21 documented as of this encounter
--- OUTSIDE RECORDS SUMMARY | 2024-05-27 13:19 | XMS_ITS | Referral Summary ---
Author Organization [facility] Address [address] [place] [address] Care Team Providers Care Custodian Athletic Equipment Name Role Phone Kamronmariola Sabrina Mariola UTILITY BILL COMPLAINTS INVESTIGATOR Primary Care Provider [phone] Encounters Date Type Department Care Team Description 05/05/2024 Specialty Pharmacy [facility] [address] [place], [place] [phone] Frankie Mitchell [facility] Refill Coordination Outreach for HIV 04/07/2024 Specialty Pharmacy [facility] [address] [place] [address] Frankie Mitchell [facility] Refill Coordination Outreach for HIV 03/03/2024 Specialty Pharmacy [facility] [address] [place], [place] [address] Frankie Mitchell [facility] Refill Coordination Outreach for HIV from Last 3 Months Allergies Active Allergy Reactions Criticality Noted Date Comments Penicillins Rash 05/14/2010 Sulfa (Sulfonamide Antibiotics) Hives 07/2009 Medications acetaminophen (TYLENOL EXTRA STRENGTH) 500 mg tablet Take 1,000 mg by mouth every 12 hours as needed for Pain. Active doxazosin (CARDURA) 4 mg tablet Take 1 tablet by mouth every day 30 Tab 1 02/15/20 17 Active Additional Information Patient not taking.Reported on 09/17/2017 Cholecalciferol, Vitamin D3, 400 unit tablet Take 400 Units by mouth daily. Active emtricitabine-rilpiv irine-tenofovir alafenam (ODEFSEY) tabletIndications:Ac quired immunodeficiency syndrome (HCC-CMS) Take 1 Tablet by mouth daily. Take with food. 90 Tablet 3 08/21/19 24 Active raltegravir (ISENTRESS HD) 600 mg tabletIndications:Ac quired immunodeficiency syndrome (HCC-CMS) Take 2 Tablets by mouth daily. 180 Tablet 3 08/21/19 24 Active lisinopriL (PRINIVIL) 10 mg tablet Take 1 Tablet by mouth daily. 90 Tablet 3 08/22/19 24 Active buPROPion (WELLBUTRIN SR) 150 mg SR tablet Take 1 Tablet by mouth 2 times daily. 0 10/27/19 24 Active celecoxib (CELEBREX) 100 mg capsule Take 1 Capsule by mouth daily. 07/29/19 24 Active Active Problems Problem Noted Date Diagnosed Date Lung nodule 03/30/2014 Overview (03/30/2014): Had right apical nodule that was biopsied in 2010 - necrotic material with AFB on bx but culture neg. Asymptomatic Health care maintenance 08/02/2013 Overview (11/17/2015): Lipid panel 06/2015 Quantiferon neg 03/2014 Acquired immunodeficiency syndrome ([facility]) Overview (11/17/2015): HIV/AIDS - h/o cryptococcal meningitis ART History:?Originally treated with IDV/CBV, then boosted IDV/CBV - tolerated meds poorly Changed to AZT/TDF/EFV developed increased HIV PCR but not high enough to do resistance testing D4T/EFV/TDF/3TC - developed peripheral neuropathy so changed to: ABC/EFV/3TC/TDF (2008) 11/2009 changed to RAL/3TC/TDF/ATVr Assessment & Plan (11/15/2015 20:47 EDT): HIV/AIDS - h/o cryptococcal meningitis ART History: Originally treated with IDV/CBV, then boosted IDV/CBV - tolerated meds poorly Changed to AZT/TDF/EFV developed increased HIV PCR but not high enough to do resistance testing D4T/EFV/TDF/3TC - developed peripheral neuropathy so changed to: ABC/EFV/3TC/TDF (2008) 11/2009 changed to RAL/3TC/TDF/ATVr Chronic active type B viral hepatitis (HCC-CMS) 01/25/2010 Chronic hepatitis C (HCC-CMS) 01/25/2010 Overview (11/17/2015): Never treated HCV RNA not detectable Unable to genotype 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 Alopecia 01/25/2010 Immunizations Name Administration Dates Next Due Influenza Vaccine =>3yo Spli t Preservative Free IM 03/19/2013 Influenza Vaccine Quad (AFLU ANDER) PF 0.5 ml IM (3 yrs+) 03/12/2017,06/28/2015,03/30/2014 Influenza Vaccine Trivalent (IIV3) Split Virus (AFLURIA) PF 0.5 mL IM (36 mos+) 05/05/2024 Pneumococcal Conjugate Vacci ne 13-Valent (PCV13) (PREVNAR-13) [...] Index 26.47 07/20/2015 1513 EST Functional Status * Because of a physical, mental, or emotional condition, does this person have difficulty doing errands alone such as visiting a doctor's office or shopping? Answer Date of Assessment Author No 07/20/2015 15:13 EST Mental Status * Because of a physical, mental, or emotional condition, does this person have serious difficulty concentrating, remembering, or making decisions? Answer Entry Date Author No 07/20/2015 15:13 EST Plan of Treatment Upcoming Encounters Date Type Department Care Team (Late st Contact Info) Description 05/31/2024 10:00 EST Telemedicine [facility] Infectious Disease - [address] [address] Lit Pina DO 111 [facility] [address] [place] [address] Procedures Procedure Name Priority Date/Time Associated Diagnosis Comments HCV RNA DETECT QUANT Routine 04/02/2023 9:05 EDT from Last 3 Months or Most Recently Relevant to Health Maintenance Results * HCV RNA DETECT QUANT (04/02/2023 9:05 EDT) HCV RNA Qualitative Undetected Undetected 04/03/2023 13:36 EDT [facility] Blood VENOUS BLOOD / Unknown 04/02/2023 9:05 EDT 04/02/2023 17:16 EDT Narrative [facility] - 04/03/2023 13:36 EDT The quantification range of this assay is 15 IU/mL to 100,000,000 IU/mL. Testing was performed using the Lucy HCV test ([employer] with the lucy [id number] System. us Provider Outr Resulting Lab CHEMISTRY & BLOOD GA S ORDERABLES Final Result [facility] [address] [place] [address] from Last 3 Months or Most Recently Relevant to Health Maintenance Insurance [place]ICA[place] MEDICARE [employer] Care Teams Custodian Athletic Equipment Relationship Specialty Start Date End Date Sabrina Jerome NP [address] [place] [phone] PCP - General 03/29/21
--- OUTSIDE RECORDS SUMMARY | 2024-05-27 13:19 | XMS_ITS | Encounter Summary ---
Author Organization [facility] Address [address] [place] [address] Care Team Providers Care Canteen Attendant Name Role Phone Sabrina Jerome HOT PATCHER Primary Care Provider [phone] Encounter Details Date Type Department Care Team (Latest Contact Info) Description 05/05/2024 Specialty Pharmacy [facility] [address] [place], [place] [phone] Frankie Mitchell [facility] Refill Coordination [...] Contact Info) Description 05/31/2024 10:00 EST Telemedicine [facility] Infectious Disease - [address] [address] Lit Pina, DO 111 [facility], [address] [place] [phone] documented as of this encounter Visit Diagnoses Not on filedocumented in this encounter Care Teams Canteen Attendant Relationship Specialty Start Date End Date Sabrina Jerome NP [address] [place] [phone] PCP - General 03/29/21 documented as of this encounter
--- OUTSIDE RECORDS SUMMARY | 2024-05-27 13:19 | XMS_ITS | Encounter Summary ---
Author Organization [facility] Address [address] [place] [address] Care Team Providers Care Safe Deposit Box Rental Clerk Name Role Phone Unknown, Provider Primary Care Provider Unava ilable Reason for Visit * Reason Comments Follow-up Encounter Details Date Type Department Care Team (Late st Contact Info) Description 03/01/2019 9:00 EDT Office Visit [facility] Infectious Disease - [address] [address] Lit Pina, DO 111 [facility], [address] 5 [place] [address] Asymptomatic HIV infection ([facility]) (Primary Dx) Social History Tobacco Use Types [...] Refills Last Filled Start Date End Date raltegravir (ISENTRESS HD) 600 mg tablet Take 2 Tabs by mouth daily. 60 Tab 11 03/01/2019 04/23/2022 emtricitabine-rilpi virine-tenofovir alafenam (ODEFSEY) tablet Take 1 Tab by mouth daily. 30 Tab 11 03/01/2019 06/28/2022 documented in this encounter Progress Notes * Lit Pina DO - 03/01/2019 0900 EDT Images from the original note were not included. Office Visit 08/31/2018 [facility] Infectious Disease - [facility] Lit Pina DO HIV (human immunodeficiency virus infection) ([facility]) Dx Follow-up Reason for Visit Progress Notes [...] adherence. Exercises with yard work. 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 Both parties are on ART and have VL < 20. Doing well in general, he plans to quit tobacco this fall with . Review of Systems: 10-point review of systems is negative except as noted in the HPI. Past Medical History: Past Medical History: Diagnosis Date ??? HIV positive ([facility]) ([facility]) ??? Screening colonoscopy 2008 Cryptococcal meninginitis was [...] day (Patient not taking: Reported on 09/17/2017) avvbwrhtjc-fuwyzkde-ppmyxu ala 200-25-25 mg tablet Take 1 Tab by mouth daily. lisinopril (PRINIVIL, ZESTRIL) 10 mg tablet Take 1 Tab by mouth daily. raltegravir 600 mg tablet Take 1,200 mg by mouth daily. Allergies Allergen Reactions ??? Penicillins Rash ??? Sulfa (Sulfonamide Antibiotics) Hives Social History Tobacco: down to 1PPD Alcohol:Rare, heavy in past Recreational drugs:THC, daily Herbal:none Professional:Not working now but does some [employer] Relationships / Living Situation: Sounds stable Sexual: [...] A vaccine in distant past. Tdap 2011. [place] slipped through the cracks this spring, pt will contact PCM to schedule. Pneumovax 2019, prevnar 2015. 5) HTN per PCM documented in this encounter Plan of Treatment Upcoming Encounters Date Type Department Care Team (Late st Contact Info) Description 05/31/2024 10:00 EST Telemedicine [facility] Infectious Disease - [address] [address] Lit Pina DO [address] [place] [address], [address] [place] [phone] documented as of this encounter Visit Diagnoses Diagnosis Asymptomatic HIV infection ([facility])- Primary Asymptomatic human immunodeficiency virus (HIV) infection status documented in this encounter Care Teams Safe Deposit Box Rental Clerk Relationship Specialty Start Date End Date Unknown, Provider, PCP - General 02/24/19 03/01/20 documented as of this encounter
--- OUTSIDE RECORDS SUMMARY | 2024-05-27 13:19 | XMS_ITS | Encounter Summary ---
Author Organization [facility] Address [address] [place] [address] Care Team Providers Care Plastic Production Machine Setter Name Role Phone Sabrina Jerome CAR HIKER Primary Care Provider [phone] Encounter Details Date Type Department Care Team (Latest Contact Info) Description 12/22/2023 Specialty Pharmacy [facility] [address] [place], [place] [address] Frankie Mitchell [facility] Refill Coordination Outreach for HIV [...] Contact Info) Description 05/31/2024 10:00 EST Telemedicine [facility] Infectious Disease - [address] [address] Lit Pina, DO 111 [facility], [address] [place] [phone] documented as of this encounter Visit Diagnoses Not on filedocumented in this encounter Care Teams Plastic Production Machine Setter Relationship Specialty Start Date End Date Sabrina Jerome NP [address] [place] [phone] PCP - General 03/29/21 documented as of this encounter
--- OUTSIDE RECORDS SUMMARY | 2024-05-27 13:19 | XMS_ITS | Encounter Summary ---
Author Organization [facility] Address [address] [place] [address] Care Team Providers Care Trailer Technician Name Role Phone Sabrina Jerome INVOICE CODER Primary Care Provider [phone] Encounter Details Date Type Department Care Team (Late st Contact Info) Description 12/12/2023 Lab Requisition [facility] Pathology & Laboratory Medicine - [address] [address] Outr Resulting Lab, Provider Social History Tobacco [...] Contact Info) Description 05/31/2024 10:00 EST Telemedicine [facility] Infectious Disease - [place] [address] [place] [address] Lit Pina DO 111 [facility], [address] [place] [phone] documented as of this encounter Procedures Procedure Name Priority Date/Time Associated Diagnosis Comments HIV 1 RNA QUANTITATION Routine 12/12/2023 7:19 EDT documented in this encounter Results * HIV 1 RNA QUANTITATION (12/12/2023 7:19 EDT) HIV RNA Detection, Qual Undetected Undetected copies/mL 12/15/2023 12:20 EDT [facility] Blood VENOUS BLOOD / Unknown 12/12/2023 7:19 EDT 12/12/2023 17:14 EDT Narrative [facility] - 12/15/2023 12:20 EDT The quantification range of this assay is 20 IU/mL to 10,000,000 IU/mL. ??Testing was performed using the Lucy HIV test ([employer] with the lucy 6800 System. us Provider Outr Resulting Lab CHEMISTRY & BLOOD GA S ORDERABLES Final Result [facility] [address] [place], [place] [phone] documented in this encounter Visit Diagnoses Not on filedocumented in this encounter Care Teams Trailer Technician Relationship Specialty Start Date End Date Sabrina Jerome NP [address] [place] [phone] PCP - General 03/29/21 documented as of this encounter
--- OUTSIDE RECORDS SUMMARY | 2024-05-27 13:19 | XMS_ITS | Encounter Summary ---
Author Organization [facility] Address [address] [place] [address] Care Team Providers Care Patient Observer Name Role Phone Sabrina Jerome SURVEY WORKER Primary Care Provider [phone] Encounter Details Date Type Department Care Team (Latest Contact Info) Description 04/07/2024 Specialty Pharmacy [facility] Specialty Pharmacy [address] [place], [place] [address] Frankie Mitchell [facility] Refill Coordination Outreach for HIV Social History [...] Contact Info) Description 05/31/2024 10:00 EST Telemedicine [facility] Infectious Disease - [address] [address] Lit Pina, DO 111 [facility], [address] [place] [phone] documented as of this encounter Visit Diagnoses Not on filedocumented in this encounter Care Teams Patient Observer Relationship Specialty Start Date End Date Sabrina Jerome NP [address] [place] [phone] PCP - General 03/29/21 documented as of this encounter
--- OUTSIDE RECORDS SUMMARY | 2024-05-27 13:19 | XMS_ITS | Encounter Summary ---
Author Organization [facility] Address [address] [place] [address] Care Team Providers Care Flight Security Specialist Name Role Phone Sabrina Jerome SUPERVISOR ESTERS AND EMULSIFIERS Primary Care Provider [phone] Encounter Details Date Type Department Care Team (Latest Contact Info) Description 11/28/2023 Specialty Pharmacy [facility] Specialty [facility] [address] [place], [place] [address] Frankie Mitchell [facility] Clinical Follow-up (2x annually) for HIV, Refill [...] Contact Info) Description 05/31/2024 10:00 EST Telemedicine [facility] Infectious Disease - [address] [address] Lit Pina, DO 111 [facility], [address] [place] [phone] documented as of this encounter Visit Diagnoses Not on filedocumented in this encounter Care Teams Flight Security Specialist Relationship Specialty Start Date End Date Sabrina Jerome NP [address] [place] [address] PCP - General 03/29/21 documented as of this encounter
--- OUTSIDE RECORDS SUMMARY | 2024-05-27 13:19 | XMS_ITS | Encounter Summary ---
Author Organization [facility] Address [address] [place] [address] Care Team Providers Care Direct Marketing Analyst Name Role Phone Sabrina Jerome BRIDAL CONSULTANT Primary Care Provider [phone] Encounter Details Date Type Department Care Team (Late st Contact Info) Description 04/02/2023 Lab Requisition [facility] Pathology & Laboratory Medicine - [address] [address] Outr Resulting Lab, Provider Social History Tobacco [...] Info) Description 05/31/2024 10:00 EST Telemedicine [facility] Infectious Disease - [address] [place] [address] Lit Pina, DO 111 [facility], [address] [place] [address] documented as of this encounter Procedures Procedure Name Priority Date/Time Associated Diagnosis Comments T CELL SUBSETS Routine 04/02/2023 9:05 EDT HIV 1 RNA QUANTITATION Routine 04/02/2023 9:05 EDT documented in this encounter Results * HIV 1 RNA QUANTITATION (04/02/2023 9:05 EDT) [facility] HIV RNA Detection, Qual Undetected Undetected copies/mL 04/03/2023 13:37 EDT [facility] Blood VENOUS BLOOD / Unknown 04/02/2023 9:05 EDT 04/03/2023 8:27 EDT Narrative [facility] - 04/03/2023 13:37 EDT The quantification range of this assay is 20 IU/mL to 10,000,000 IU/mL. ??Testing was performed using the Lucy HIV test ([employer] with the lucy 6800 System. us Provider Outr Resulting Lab CHEMISTRY & BLOOD GA S ORDERABLES Final Result [facility] [address] [place] [address] * (ABNORMAL) T CELL SUBSETS (04/02/2023 9:05 EDT) [facility] % CD3 74 56 - 84 % 04/04/2023 16:52 EDT [facility] % CD4 35 31 - 64 % 04/04/2023 16:52 EDT [facility] % CD8 38 9 - 39 % 04/04/2023 16:52 EDT [facility] Absolute CD3 2,441 840 - 2,669 Cells/uL 04/04/2023 16:52 EDT [facility] Absolute CD4 1,162 488 - 1,734 Cells/uL 04/04/2023 16:52 EDT [facility] Absolute CD8 1,267(H) 154 - 1,097 Cells/uL 04/04/2023 16:52 EDT [facility] 4/8 Ratio 0.92 >=0.90 04/04/2023 16:52 EDT [facility] Blood VENOUS BLOOD / Unknown 04/02/2023 9:05 EDT 04/02/2023 17:21 EDT us Provider Outr Resulting Lab IMMUNOLOGY AND SEROL OGY ORDERABLES Final Result [facility] [address] [place] [address] documented in this encounter Visit Diagnoses Not on filedocumented in this encounter Care Teams Direct Marketing Analyst Relationship Specialty Start Date End Date Sabrina Jerome NP [address] [place] [address] PCP - General 03/29/21 documented as of this encounter
--- OUTSIDE RECORDS SUMMARY | 2024-05-27 13:19 | XMS_ITS | Encounter Summary ---
Author Organization [facility] Address [address] [place] [address] Care Team Providers Care Agency Service Representative Name Role Phone Sabrina Jerome RECEIVABLE EXECUTIVE Primary Care Provider [phone] Encounter Details Date Type Department Care Team (Latest Contact Info) Description 02/06/2024 Specialty Pharmacy [facility] Specialty Pharmacy 1 [place], [place] [address] Frankie Mitchell [facility] Refill Coordination Outreach for HIV [...] Contact Info) Description 05/31/2024 10:00 EST Telemedicine [facility] Infectious Disease - [address] [address] Lit Pina, DO 111 [facility], [address] [place] [phone] documented as of this encounter Visit Diagnoses Not on filedocumented in this encounter Care Teams Agency Service Representative Relationship Specialty Start Date End Date Sabrina Jerome NP [address] [place] [phone] PCP - General 03/29/21 documented as of this encounter
--- OUTSIDE RECORDS SUMMARY | 2024-05-27 13:19 | XMS_ITS | Encounter Summary ---
Author Organization [facility] Address [address] [place] [address] Care Team Providers Care Systems Operator Name Role Phone None, Provider Primary Care Provider Unavailabl e Reason for Visit * Reason Comments Follow-up Encounter Details Date Type Department Care Team (Late st Contact Info) Description 03/06/2020 9:00 EDT Telemedicine [facility] Infectious Disease - [address] [address] Lit Pina, DO 111 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 Both parties are on ART and have VL < 20. ?? Closed relationship. His partner is followed at [facility] as well. ?? Doing well in general,??he planned to quit tobacco in 2018 But still smoking, now up to 1PPD. [...] day (Patient not taking: Reported on 09/17/2017) jlnjcbtlxa-ykjsvtkg-kypyvo ala 200-25-25 mg tablet Take 1 Tab [...] ??Hep A vaccine indistant past. ??Tdap 2011. ?[place] Apr 2019, looked good so repeat in [...] Contact Info) Description 05/31/2024 10:00 EST Telemedicine [facility] Infectious Disease - [address] [address] Lit Pina DO 111 [facility], [address] [place] [address] documented as of this encounter Visit Diagnoses Diagnosis Acquired immunodeficiency syndrome (HCC-CMS)- Primary Human immunodeficiency virus [HIV] disease Asymptomatic HIV infection (HCC-CMS) Asymptomatic human immunodeficiency virus (HIV) infection status documented in this encounter Care Teams Systems Operator Relationship Specialty Start Date End Date None, Provider PCP - General 03/02/20 03/28/21 documented as of this encounter
--- OUTSIDE RECORDS SUMMARY | 2024-05-27 13:19 | XMS_ITS | Encounter Summary ---
Author Organization [facility] Address [address] [place] [address] Care Team Providers Care Assistant Boiler Operator Name Role Phone Sabrina Jerome COMMUNITY HEALTH WORKER Primary Care Provider [phone] Reason for Visit * Reason Comments Follow-up Encounter Details Date Type Department Care Team (Late st Contact Info) Description 04/07/2023 9:30 EDT Telemedicine [facility] Infectious Disease [address] [address] Lit Pina, DO 111 [facility], [facility] [address] [place] [address] Asymptomatic HIV infection (HCC-CMS) (Primary [...] documented in this encounter Progress Notes * Dani Pinaothy Filiberto, DO - 04/07/2023 0930 EDT Division of Infectious Disease Follow up/Progress Note 04/07/23 8:33 TELEMEDICINE VIDEO VISIT Today's visit was provided through telemedicine video conferencing: The location of the patient : [facility] The location of the provider: Office[facility]T The [...] <??20. ?Closed relationship. ??His partner??(Fernando)??is followed at [facility] as well??and they are typically [...] day (Patient not taking: Reported on 09/17/2017) fdtpzzlxwu-forumfze-effhve ala 200-25-25 mg tablet Take 1 Tab [...] ?Hep A vaccine in distant past. ??Td 2021,?[place]??Apr 2019, looked good so repeat in 10 [...] Contact Info) Description 05/31/2024 10:00 EST Telemedicine [facility] Infectious Disease - [address] [address] Lit Pina DO 111 [facility], [address] [place] [address] documented as of this encounter Visit Diagnoses Diagnosis Asymptomatic HIV infection ([facility])- Primary Asymptomatic human immunodeficiency virus (HIV) infection status documented in this encounter Care Teams Assistant Boiler Operator Relationship Specialty Start Date End Date Sabrina Jerome NP [address] [place] [address] PCP - General 03/29/21 documented as of this encounter
--- OUTSIDE RECORDS SUMMARY | 2024-05-27 13:19 | XMS_ITS | Encounter Summary ---
Author Organization [facility] Address [address] [place] [address] Care Team Providers Care Shirt Trimmer Name Role Phone Unknown, Provider Primary Care Provider Unava ilable Reason for Visit * Reason Comments HIV Positive/AIDS Encounter Details Date Type Department Care Team (Late st Contact Info) Description 08/16/2019 9:00 EST Office Visit [facility] Infectious Disease - [address] [address] Lit Pina, DO 111 [facility], [address] [place] [address] Acquired immunodeficiency syndrome ([facility]) (Primary Dx) Social History Tobacco Use Types [...] adherence. Exercises with yard work. 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 Partner HIVinfected, not using condoms. Both [...] day (Patient not taking: Reported on 09/17/2017) hzgycmghgs-gvdbaajk-sigcie ala 200-25-25 mg tablet Take 1 Tab [...] A vaccine in distant past. Tdap 2011. [place] Apr 2019, looked good so repeat in 10 years. Pneumovax 2019, prevnar 2014. ?? 5) HTN per PCM ?? 6) Had benign lesion removed from oral cavity in 2019, benign. Pt encouraged to stop smoking documented in this encounter Plan of Treatment Upcoming Encounters Date Type Department Care Team (Late st Contact Info) Description 05/31/2024 10:00 EST Telemedicine [facility] Infectious Disease - [address] [address] Lit Pina DO 111 [facility], [address] [place] [address] documented as of this encounter Visit Diagnoses Diagnosis Acquired immunodeficiency syndrome (HCC-CMS)- Primary Human immunodeficiency virus [HIV] disease documented in this encounter Care Teams Shirt Trimmer Relationship Specialty Start Date End Date Unknown, Provider, PCP - General 02/24/19 03/01/20 documented as of this encounter
--- OUTSIDE RECORDS SUMMARY | 2024-05-27 13:19 | XMS_ITS | Encounter Summary ---
Author Organization [facility] Address [address] [place] [address] Care Team Providers Care Therapeutic Radiologist Name Role Phone Sabrina Jerome PHYSICIAN ASSISTANT PRIMARY CARE Primary Care Provider [phone] Reason for Visit * Reason Comments Follow-up Encounter Details Date Type Department Care Team (Late st Contact Info) Description 04/08/2022 9:00 EDT Telemedicine [facility] Infectious Disease - [address] [address] Lit Pina, DO 111 [facility], Level [address] [place] [phone] Asymptomatic HIV infection (HCC) (Primary Dx) Social [...] relationship. ??His partner (Fernando) is followed at [facility] as well and they are [...] day (Patient not taking: Reported on 09/17/2017) bsycdimiuc-shjiitbm-jwudgj ala 200-25-25 mg tablet Take 1 Tab [...] ??Tdap 2011, needs booster (will get at [facility] next month). ?[place]??Apr 2019, looked good so repeat in 10 years.?Pneumovax 2018, prevnar 2014. COVID 2020, due for booster but patient declines. Flu shotOct 2021 ?? 5) HTN per [facility], sees Sabrina Jerome with good regularity. ?? [...] Contact Info) Description 05/31/2024 10:00 EST Telemedicine [facility] Infectious Disease - [address] [address] Lit Pina DO 111 [facility], [facility], [address] [place] [phone] documented as of this encounter Visit Diagnoses Diagnosis Asymptomatic HIV infection (HCC-CMS)- Primary Asymptomatic human immunodeficiency virus (HIV) infection status documented in this encounter Care Teams Therapeutic Radiologist Relationship Specialty Start Date End Date Sabrina Jerome NP [address] [place] [address] PCP - General 03/29/21 documented as of this encounter
--- OUTSIDE RECORDS SUMMARY | 2024-05-27 13:19 | XMS_ITS | Encounter Summary ---
Author Organization [facility] Address [address] [place] [address] Care Team Providers Care Globe Tester Name Role Phone Sabrina Jerome MERCURY RECOVERER Primary Care Provider [phone] Encounter Details Date Type Department Care Team (Latest Contact Info) Description 11/03/2023 Specialty Pharmacy [facility] [address] [place] [phone] Jori Mitchell RPH Refill Coordination Outreach for [...] 07/20/2015 15:13 EST documented in this encounter Miscellaneous Notes * Addendum Note - Jori Mitchell RPH - 11/03/2023 1435 EDTAddended by: JORI MITCHELL on: 11/11/2023 09:46 Modules accepted: Orders documented in this encounter Plan of Treatment Upcoming Encounters Date Type Department Care Team (Late st Contact Info) Description 05/31/2024 10:00 EST Telemedicine [facility] Infectious Disease - [address] [address] Lit Pina, DO 111 [facility], [address] [place] [phone] documented as of this encounter Visit Diagnoses Not on filedocumented in this encounter Historical Medications * This list may reflect changes made after this encounter. celecoxib (CELEBREX) 100 mg capsule Take 1 Capsule by mouth daily. 07/29/2023 added in this encounter Care Teams Globe Tester Relationship Specialty Start Date End Date Sabrina Jerome NP [address] [place] [address] PCP - General 03/29/21 documented as of this encounter
--- OUTSIDE RECORDS SUMMARY | 2024-05-27 13:19 | XMS_ITS | Encounter Summary ---
Author Organization [facility] Address [address] [place] [address] Care Team Providers Care Assistant Attorney General Name Role Phone Sabrina Jerome VISUAL INSPECTOR Primary Care Provider [phone] Encounter Details Date Type Department Care Team (Latest Contact Info) Description 03/03/2024 Specialty Pharmacy [facility] [address] [place], [place] [address] Frankie Mitchell [facility] Refill Coordination Outreach for HIV [...] Contact Info) Description 05/31/2024 10:00 EST Telemedicine [facility] Infectious Disease - [address] [address] Lit Pina, DO 111 [facility], [address] [place] [phone] documented as of this encounter Visit Diagnoses Not on filedocumented in this encounter Care Teams Assistant Attorney General Relationship Specialty Start Date End Date Sabrina Jerome NP [address] [place] [phone] PCP - General 03/29/21 documented as of this encounter
--- OUTSIDE RECORDS SUMMARY | 2024-05-27 13:19 | XMS_ITS | Encounter Summary ---
Author Organization [facility] Address [address] [place] [address] Care Team Providers Care Control Clerk Name Role Phone Sabrina Jerome SUPERVISOR SHAVING AND SPLITTING Primary Care Provider [phone] Reason for Visit * Reason Comments Follow-up Encounter Details Date Type Department Care Team (Late st Contact Info) Description 09/23/2022 9:30 EDT Telemedicine [facility] Infectious Disease [address] [address] Lit Pina, DO 111 [facility], [facility] 5 [place] [address] Asymptomatic HIV infection (HCC-CMS) (Primary [...] conferencing: The location of the patient : [facility], [facility] The location of the provider: Office [facility] The following staff and their role did [...] <??20. ?Closed relationship. ??His partner??(Fernando)??is followed at [facility] as well and they are [...] day (Patient not taking: Reported on 09/17/2017) cvqiajkruf-yzhbxwko-nsuiqa ala 200-25-25 mg tablet Take 1 Tab [...] ??Tdap 2011, needs booster (will get at [facility] next month). ?[place]??Apr 2019, looked good so repeat in 10 years.?Pneumovax 2018, prevnar 2014.?COVID 2020, due for booster but patient declines. Flushot Apr 2022 ?? 5) HTN per [facility], sees Sabrina Jerome with good regularity. [...] Contact Info) Description 05/31/2024 10:00 EST Telemedicine [facility] Infectious Disease - [address] [address] Lit Pina DO 111 [facility], Level [address] [place] [address] documented as of this encounter Visit Diagnoses Diagnosis Asymptomatic HIV infection (HCC-CMS)- Primary Asymptomatic human immunodeficiency virus (HIV) infection status documented in this encounter Care Teams Control Clerk Relationship Specialty Start Date End Date Sabrina Jerome NP [address] [place] [address] PCP - General 03/29/21 documented as of this encounter
--- OUTSIDE RECORDS SUMMARY | 2024-05-27 13:19 | XMS_ITS | Encounter Summary ---
Author Organization [facility] Address [address] [place] [address] Care Team Providers Care Gravure Press Set Up Operator Name Role Phone Sabrina Jerome PROFESSOR OF ENVIRONMENTAL SCIENCE Primary Care Provider [phone] Encounter Details Date Type Department Care Team (Late st Contact Info) Description 09/19/2022 Lab Requisition [facility] Pathology & Laboratory Medicine - [address] [address] Outr Resulting Lab, Provider Social History Tobacco [...] Contact Info) Description 05/31/2024 10:00 EST Telemedicine [facility] Infectious Disease - [address] [address] Lit Pina, 111 [facility], [facility] 5 [place] [address] documented as of this encounter Procedures Procedure Name Priority Date/Time Associated Diagnosis Comments T CELL SUBSETS Routine 09/19/2022 11:03 EST HIV 1 RNA QUANTITATION Routine 09/19/2022 11:03 EST documented in this encounter Results * HIV 1 RNA QUANTITATION (09/19/2022 11:03 EST) [facility] HIV RNA Detection, Qual Undetected Undetected copies/mL 09/23/2022 14:44 EDT [facility] Blood VENOUS BLOOD / Unknown 09/19/2022 11:03 EST 09/19/2022 21:55 EST Narrative [facility] - 09/23/2022 14:44 EDT The quantification range of this assay is 20 IU/mL to 10,000,000 IU/mL. ??Testing was performed using the Lucy HIV test (Jaleel [employer] with the lucy 6800 System. us Provider Outr Resulting Lab CHEMISTRY & BLOOD GA S ORDERABLES Final Result [facility] [address] [place] [address] * (ABNORMAL) T CELL SUBSETS (09/19/2022 11:03 EST) [facility] % CD3 74 56 - 84 % 09/20/2022 15:57 EST [facility] % CD4 36 31 - 64 % 09/20/2022 15:57 EST [facility] % CD8 37 9 - 39 % 09/20/2022 15:57 EST [facility] Absolute CD3 2,421 840 - 2,669 Cells/uL 09/20/2022 15:57 EST [facility] Absolute CD4 1,186 488 - 1,734 Cells/uL 09/20/2022 15:57 EST [facility] Absolute CD8 1,218(H) 154 - 1,097 Cells/uL 09/20/2022 15:57 EST [facility] 4/8 Ratio 0.97 >=0.90 09/20/2022 15:57 EST [facility] Blood VENOUS BLOOD / Unknown 09/19/2022 11:03 EST 09/19/2022 21:55 EST us Provider Outr Resulting Lab IMMUNOLOGY AND SEROL OGY ORDERABLES Final Result Performing Organization Address City/State/[facility] Co de Phone Number [facility] [address] [place] [address] documented in this encounter Visit Diagnoses Not on filedocumented in this encounter Care Teams Gravure Press Set Up Operator Relationship Specialty Start Date End Date Sabrina Jerome NP [address] [place] [address] PCP - General 03/29/21 documented as of this encounter
--- OUTSIDE RECORDS SUMMARY | 2024-05-27 13:19 | XMS_ITS | Encounter Summary ---
Author Organization [facility] Address [address] [place] [address] Care Team Providers Care Youth Care Specialist Name Role Phone Sabrina Jerome AGRICULTURAL PRODUCE SORTER Primary Care Provider [phone] Reason for Visit * Reason Comments Medications Refill Encounter Details Date Type Department Care Team (Late st Contact Info) Description 04/22/2022 Refill [facility] Infectious Disease [address] [address] Lit Pina, DO 111 [facility], [facility] 5 [place] [phone] Medications Refill Social History Tobacco Use Types [...] for 30 days. 60 Tablet 11 04/23/2022 2 documented in this encounter Plan of Treatment Upcoming Encounters Date Type Department Care Team (Late st Contact Info) Description 05/31/2024 10:00 EST Telemedicine [facility] Infectious Disease - [address] [address] Lit Pina, DO 111 [facility], Level [address] [place] [phone] documented as of this encounter Visit Diagnoses Not on filedocumented in this encounter Discontinued Medications Medication Sig Discontinue Reason Start Date End Da te raltegravir (ISENTRESS HD) 600 mg tablet Take 2 Tabs by mouth daily. Therapy completed 03/01/2019 04/23/2022 documented as of this encounter Care Teams Youth Care Specialist Relationship Specialty Start Date End Date Sabrina Jerome NP [address] [place] [address] PCP - General 03/29/21 documented as of this encounter
--- OUTSIDE RECORDS SUMMARY | 2024-05-27 13:19 | XMS_ITS | Encounter Summary ---
Author Organization [facility] Address [address] [place] [address] Care Team Providers Care Fuel Island Attendant Name Role Phone Sabrina Jerome AVIATION CONSULTANT Primary Care Provider [phone] Encounter Details Date Type Department Care Team (Late st Contact Info) Description 09/19/2022 Lab Requisition [facility] Pathology & Laboratory Medicine - [address] [address] Outr Resulting Lab, Provider Social History Tobacco [...] Contact Info) Description 05/31/2024 10:00 EST Telemedicine [facility] Infectious Disease - [address] [address] Lit Pina DO 111 [facility], [facility], Level [address] [place] [address] documented as of this encounter Procedures Procedure Name Priority Date/Time Associated Diagnosis Comments HCV RNA DETECT QUANT Routine 09/19/2022 11:03 EST documented in this encounter Results * HCV RNA DETECT QUANT (09/19/2022 11:03 EST) HCV RNA Qualitative Undetected Undetected 09/20/2022 13:04 EST [facility] Blood VENOUS BLOOD / Unknown 09/19/2022 11:03 EST 09/19/2022 21:55 EST Narrative [facility] - 09/20/2022 13:04 EST The quantification range of this assay is 15 IU/mL to 100,000,000 IU/mL. Testing was performed using the Lucy HCV test (Jaleel [employer] with the lucy 6800 System. us Provider Outr Resulting Lab CHEMISTRY & BLOOD GA S ORDERABLES Final Result [facility] [address] [place] [address] documented in this encounter Visit Diagnoses Not on filedocumented in this encounter Care Teams [place] Attendant Relationship Specialty Start Date End Date Sabrina Jerome NP [address] [place] [address] PCP - General 03/29/21 documented as of this encounter
--- OUTSIDE RECORDS SUMMARY | 2024-05-27 13:19 | XMS_ITS | Encounter Summary ---
Author Organization [facility] Address [address] [place] [address] Care Team Providers Care Patient Care Representative Name Role Phone Sabrina Jerome SAFETY INSTRUCTION POLICE OFFICER Primary Care Provider [phone] Reason for Visit * Reason Comments Medication Questions Encounter Details Date Type Department Care Team (Latest Contact Info) Description 09/30/2023 Specialty Pharmacy [facility] [address] [place] [phone] Jori Mitchell RPH Refill Coordination Outreach for [...] documented in this encounter Progress Notes * Jori Mitchell RPH - 09/30/2023 1548 EDT [facility] Infectious Disease Clinic Guanakito Cedillo is a 53 y.o. male being treated with raltegravir (Isentress) 1200 mg once daily plus exfigvihavhcv-gpvhmxgpnlv-rigypynrt alafenamide (Odefsey) once daily for HIV. The [...] Take 1 tablet by mouth every day pdvfmzpacbbfo-thvcjgqdszm-fmuttkdur alafenam (ODEFSEY) tablet 1 Tablet, oral, DAILY, [...] Continue raltegravir 1200 mg once daily plus gbxolgczmiwss-jrsvfctjysm-admlcwasd alafenamide (Odefsey) once daily. Follow-up planned: - Clinic appointment: scheduled with Dr. Lit Pina on 11/10/23 - Laboratory monitoring: to be ordered by Dr. Pina - Next refill due by 10/13/23 Jori Mitchell, PharmD Ambulatory Pharmacist [facility] Infectious Disease 09/30/2023 documented in this encounter Miscellaneous Notes * Addendum Note - Jori Mitchell RPH - 09/30/2023 1548 EDTAddended by: JORI MITCHELL on: 10/27/2023 10:35 Modules accepted: Orders documented in this encounter Plan of Treatment Upcoming Encounters Date Type Department Care Team (Late st Contact Info) Description 05/31/2024 10:00 EST Telemedicine [facility] Infectious Disease - [address] [address] Lit Pina, DO 111 [facility], [facility], Level [address] [place] [address] documented as of this encounter Visit Diagnoses Not on filedocumented in this encounter Historical Medications * This list may reflect changes made after this encounter. buPROPion (WELLBUTRIN SR) 150 mg SR tablet Take 1 Tablet by mouth 2 times daily. 0 10/27/2023 added in this encounter Care Teams Patient Care Representative Relationship Specialty Start Date End Date Sabrina Jerome, SOM [address] [place] [address] PCP - General 03/29/21 documented as of this encounter
--- OUTSIDE RECORDS SUMMARY | 2024-05-27 13:19 | XMS_ITS | Encounter Summary ---
Author Organization [facility] Address [address] [place] [address] Care Team Providers Care Health Education Coordinator Name Role Phone None, Provider Primary Care Provider Sabrina Kiran CLAY STRUCTURE BUILDER AND SERVICER Primary Care Provider [phone] Encounter Details Date Type Department Care Team (Late st Contact Info) Description 07/28/2020 Lab Requisition [facility] Pathology & Laboratory Medicine - [facility] [address] [place] [address] Outr Resulting Lab, Provider Social History Tobacco [...] Description 05/31/2024 10:00 EST Telemedicine [facility] Infectious Disease - [place] [phone] [facility] [place] [address] Lit Pina DO 111 [facility], [facility], Level [address] [place] [phone] documented as of this encounter Procedures Procedure [...] the PADILLA Ampliprep/PADILLA TaqMan HCV v2.0 (Jaleel [employer] us Provider Outr Resulting Lab CHEMISTRY & BLOOD GA S ORDERABLES Final Result [facility] [address] [place] [address] documented in this encounter Visit Diagnoses Not on filedocumented in this encounter Care Teams Health Education Coordinator Relationship Specialty Start Date End Date None, Provider PCP - General 03/02/20 03/28/21 Sabrina Jerome NP [address] [place] [address] PCP - General 03/29/21 documented as of this encounter
--- OUTSIDE RECORDS SUMMARY | 2024-05-27 13:19 | XMS_ITS | Encounter Summary ---
Author Organization [facility] Address [address] [place] [address] Care Team Providers Care Consolidation Accountant Name Role Phone Hanane Pollock NP Primary Care Provider [phone] Reason for Visit * Reason Onset Date Comments Other 04/29/2018 Encounter Details Date Type Department Care Team (Late st Contact Info) Description 04/29/2018 Telephone [facility] General Surgery - [facility] [address] [place] [address] Bharat Dowd MD 111 [facility], Level [address] [place] [address] Other Social History Tobacco Use [...] Dean performed Guanakito's colonoscopy on September at [facility]. It was normal with a hyperplastic polyp. He is due anytime after 09/12/18. Fernando will call me back in to schedule this. documented in this encounter Plan of Treatment Upcoming Encounters Date Type Department Care Team (Late st Contact Info) Description 05/31/2024 10:00 EST Telemedicine [facility] Infectious Disease - [address] [phone] Lit Pina, DO [address] [place] [address], Level [address] [place] [address] documented as of this encounter Visit Diagnoses Not on filedocumented in this encounter Care Teams Consolidation Accountant Relationship Specialty Start Date End Date Hanane Pollock NP [facility] [address] [place], [place] [phone] PCP - General 01/30/09 02/23/19 documented as of this encounter
--- OUTSIDE RECORDS SUMMARY | 2024-05-27 13:19 | XMS_ITS | Encounter Summary ---
Author Organization [facility] Address [address] [place] [address] Care Team Providers Care Fire Prevention Engineer Name Role Phone Sabrina Jerome BUSINESS INTELLIGENCE DIRECTOR Primary Care Provider [phone] Reason for Visit * Reason Comments Medications Refill Encounter Details Date Type Department Care Team (Late st Contact Info) Description 06/28/2022 Refill [facility] Infectious Disease - [address] [address] Lit Pina, DO 111 [facility], Level [address] [place] [phone] Medications Refill Social History Tobacco Use Types [...] Refills Last Filled Start Date End Date ODEFSEY tablet Take 1 tablet by mouth every day 90 Tablet 1 06/28/2022 08/21/2023 documented in this encounter Plan of Treatment Upcoming Encounters Date Type Department Care Team (Late st Contact Info) Description 05/31/2024 10:00 EST Telemedicine [facility] Infectious Disease - [address] [address] Lit Pina, DO 111 [facility], Level [address] [place] [address] documented as of this encounter Visit Diagnoses Not on filedocumented in this encounter Discontinued Medications Medication Sig Discontinue Reason Start Date End Da te emtricitabine-rilpivirine -tenofovir alafenam (ODEFSEY) tablet Take 1 Tab by mouth daily. Reorder 03/01/2019 06/28/2022 smukcfypcs-xjphbsew-xwqri o ala 200-25-25 mg tablet Take 1 Tab by mouth daily. Reorder 09/17/2017 06/28/2022 documented as of this encounter Care Teams Fire Prevention Engineer Relationship Specialty Start Date End Date Sabrina Jerome NP [address] [place] [address] PCP - General 03/29/21 documented as of this encounter
--- OUTSIDE RECORDS SUMMARY | 2024-05-27 13:19 | XMS_ITS | Encounter Summary ---
Author Organization [facility] Address [address] [place] [address] Care Team Providers Care Ham Boner Name Role Phone Sabrina Jerome TRIBUNAL MEMBER Primary Care Provider [phone] Encounter Details Date Type Department Care Team (Late st Contact Info) Description 03/28/2022 Lab Requisition [facility] Pathology & Laboratory Medicine - [address] [address] Outr Resulting Lab, Provider Social History Tobacco [...] Contact Info) Description 05/31/2024 10:00 EST Telemedicine [facility] Infectious Disease - [place] [address] [place] [address] Lit Pina, DO 111 [facility], Level [address] [place] [address] documented as of this encounter Procedures Procedure Name Priority Date/Time Associated Diagnosis Comments T CELL SUBSETS Routine 03/28/2022 7:40 EDT HIV 1 RNA QUANTITATION Routine 03/28/2022 7:40 EDT documented in this encounter Results * HIV 1 RNA QUANTITATION (03/28/2022 7:40 EDT) [facility] HIV RNA Detection, Qual Undetected Undetected copies/mL 04/01/2022 13:[address] [facility] Blood VENOUS BLOOD / Unknown 03/28/2022 7:40 EDT 03/28/2022 17:[address] [facility] - 04/01/2022 13:45 EDT The quantification range of this assay is 20 IU/mL to 10,000,000 IU/mL. ??Testing was performed using the Lucy HIV test (Jaleel [employer] with the lucy 6800 System. us Provider Outr Resulting Lab CHEMISTRY & BLOOD GA S ORDERABLES Final Result [facility] [address] [place] [address] * (ABNORMAL) T CELL SUBSETS (03/28/2022 7:40 EDT) [facility] % CD3 72 56 - 84 % 03/29/2022 16:[address] [facility] % CD4 33 31 - 64 % 03/29/2022 16:[address] [facility] % CD8 39 9 - 39 % 03/29/2022 16:[address] [facility] Absolute CD3 2,107 840-2,669 Cells/uL 03/29/2022 16:[address] [facility] Absolute CD4 957 488-1,734 Cells/uL 03/29/2022 16:[address] [facility] Absolute CD8 1,125(H) 154-1,097 Cells/uL 03/29/2022 16:[address] [facility] 4/8 Ratio 0.85(L) >=0.90 03/29/2022 16:[address] [facility] Blood VENOUS BLOOD / Unknown 03/28/2022 7:40 EDT 03/28/2022 17:16 EDT us Provider Outr Resulting Lab IMMUNOLOGY AND SEROL OGY ORDERABLES Final Result [facility] [address] [place] [address] documented in this encounter Visit Diagnoses Not on filedocumented in this encounter Care Teams Ham Boner Relationship Specialty Start Date End Date Sabrina Jerome NP [address] [place] [address] PCP - General 03/29/21 documented as of this encounter
--- OUTSIDE RECORDS SUMMARY | 2024-05-27 13:19 | XMS_ITS | Encounter Summary ---
Author Organization [facility] Address [address] [place] [address] Care Team Providers Care Processing Engineer Name Role Phone None, Provider Primary Care Provider Sabrina Kiran NURSE ADMINISTRATOR Primary Care Provider Encounter Details Date Type Department Care Team (Late Contact Info) Description 03/02/2020 Lab Requisition [facility] Pathology & Laboratory Medicine - [address] [address] Outr Resulting Lab, Provider Social History Tobacco [...] Contact Info) Description 05/31/2024 10:00 EST Telemedicine [facility] Infectious Disease - [place] [address] [place] [address] Lit Pina DO 111 [facility], [facility] 5 [place] [phone] documented as of this encounter Procedures Procedure Name Priority Date/Time Associated Diagnosis Comments HIV 1 RNA QUANTITATION Routine 03/02/2020 7:38 EDT documented in this encounter Results * HIV 1 RNA QUANTITATION (03/02/2020 7:38 EDT) HIV RNA Detection, Qual Undetected Undetected copies/mL 03/06/2020 14:18 EDT [facility] Blood VENOUS BLOOD / Unknown 03/02/2020 7:38 EDT 03/02/2020 15:47 EDT Narrative [facility] - 03/06/2020 14:18 EDT The quantification range of this assay is 20 IU/mL to 10,000,000 IU/mL. ??Testing was performed on the PADILLA Ampliprep/PADILLA TaqMan HIV v2.0 (Jaleel [employer] us Provider Outr Resulting Lab CHEMISTRY & BLOOD GA S ORDERABLES Final Result [facility] [address] [place] [address] documented in this encounter Visit Diagnoses Not on filedocumented in this encounter Care Teams Processing Engineer Relationship Specialty Start Date End Date None, Provider PCP - General 03/02/20 03/28/21 Sabrina Jerome NP [address] [place] [address] PCP - General 03/29/21 documented as of this encounter
--- OUTSIDE RECORDS SUMMARY | 2024-05-27 13:19 | XMS_ITS | Encounter Summary ---
Author Organization [facility] Address [address] [place] [address] Care Team Providers Care Coremaker Helper Name Role Phone Sabrina Jerome WIRE FRAME LAMP SHADE MAKER Primary Care Provider [phone] Encounter Details Date Type Department Care Team (Late st Contact Info) Description 07/23/2021 Lab Requisition [facility] Pathology & Laboratory Medicine - [address] [address] Outr Resulting Lab, Provider Social History Tobacco [...] Contact Info) Description 05/31/2024 10:00 EST Telemedicine [facility] Infectious Disease - [address] [address] Lit Pina, DO 111 [facility], [facility] 5 [place] [address] documented as of this encounter Procedures Procedure Name Priority Date/Time Associated Diagnosis Comments T CELL SUBSETS Routine 07/23/2021 7:45 EST HIV 1 RNA QUANTITATION Routine 07/23/2021 7:45 EST documented in this encounter Results * HIV 1 RNA QUANTITATION (07/23/2021 7:45 EST) Pathologist [facility] HIV RNA Detection, Qual Undetected Undetected copies/mL 07/26/2021 13:09 EST [facility] Blood VENOUS BLOOD / Unknown 07/23/2021 7:45 EST 07/23/2021 16:30 EST Narrative [facility] - 07/26/2021 13:09 EST New platform in use 02/05/2021 The quantification range of this assay is 20 IU/mL to 10,000,000 IU/mL. ??Testing was performed using the Lucy HIV test (Jaleel [employer] with the lucy 6800 System. us Provider Outr Resulting Lab CHEMISTRY & BLOOD GA S ORDERABLES Final Result [facility] [address] [place] [address] * (ABNORMAL) T CELL SUBSETS (07/23/2021 7:45 EST) [facility] % CD3 69 56 - 84 % 07/24/2021 14:20 EST [facility] % CD4 31 31 - 64 % 07/24/2021 14:20 EST [facility] % CD8 38 9 - 39 % 07/24/2021 14:20 EST [facility] Absolute CD3 2,032 840-2,669 Cells/uL 07/24/2021 14:20 EST [facility] Absolute CD4 904 488-1,734 Cells/uL 07/24/2021 14:20 EST [facility] Absolute CD8 1,111(H) 154-1,097 Cells/uL 07/24/2021 14:20 EST [facility] 4/8 Ratio 0.81(L) >=0.90 07/24/2021 14:20 EST [facility] Blood VENOUS BLOOD / Unknown 07/23/2021 7:45 EST 07/24/2021 8:42 EST us Provider Outr Resulting Lab IMMUNOLOGY AND SEROL OGY ORDERABLES Final Result [facility] [address] [place] [address] documented in this encounter Visit Diagnoses Not on filedocumented in this encounter Care Teams Coremaker Helper Relationship Specialty Start Date End Date Sabrina Jerome NP [address] [place] [address] PCP - General 03/29/21 documented as of this encounter
--- OUTSIDE RECORDS SUMMARY | 2024-05-27 13:19 | XMS_ITS | Encounter Summary ---
Author Organization [facility] Address [address] [place] [address] Care Team Providers Care President & Ceo Name Role Phone None, Provider Primary Care Provider Unavailabl e Reason for Visit * Reason Onset Date Comments Follow-up 08/21/2020 Encounter Details Date Type Department Care Team (Late st Contact Info) Description 08/21/2020 Telephone [facility] Infectious Disease - [address] [id number] iLt Pina, DO [address] [facility], Level 5 [place] [address] Follow-up Social History Tobacco Use [...] Encounter - Lit Pina DO - 08/21/2020 0160 EST Patient's Fernando called stating that patient [...] Contact Info) Description 05/31/2024 10:00 EST Telemedicine [facility] Infectious Disease - [address] [address] Lit Pina DO 111 [facility], [address] [place] [address] documented as of this encounter Visit Diagnoses Not on filedocumented in this encounter Care Teams President & Ceo Relationship Specialty Start Date End Date None, Provider PCP - General 03/02/20 03/28/21 documented as of this encounter
--- OUTSIDE RECORDS SUMMARY | 2024-05-27 13:19 | XMS_ITS | Encounter Summary ---
Author Organization [facility] Address [address] [place] [address] Care Team Providers Care Agricultural Equipment Test Engineer Name Role Phone Sabrina Jerome SAP CONSULTANT Primary Care Provider [phone] Encounter Details Date Type Department Care Team (Late st Contact Info) Description 04/02/2023 Lab Requisition [facility] Pathology & Laboratory Medicine - [address] [address] Outr Resulting Lab, Provider Social History Tobacco [...] Contact Info) Description 05/31/2024 10:00 EST Telemedicine [facility] Infectious Disease - [address] [address] Lit Pina DO 111 [facility], [facility], Level [address] [place] [phone] documented as of this encounter Procedures Procedure Name Priority Date/Time Associated Diagnosis Comments HCV RNA DETECT QUANT Routine 04/02/2023 9:05 EDT documented in this encounter Results * HCV RNA DETECT QUANT (04/02/2023 9:05 EDT) HCV RNA Qualitative Undetected Undetected 04/03/2023 13:36 EDT [facility] Blood VENOUS BLOOD / Unknown 04/02/2023 9:05 EDT 04/02/2023 17:16 EDT Narrative [facility] - 04/03/2023 13:36 EDT The quantification range of this assay is 15 IU/mL to 100,000,000 IU/mL. Testing was performed using the Lucy HCV test (Jaleel [employer] with the lucy 6800 System. us Provider Outr Resulting Lab CHEMISTRY & BLOOD GA S ORDERABLES Final Result [facility] [address] [place] [address] documented in this encounter Visit Diagnoses Not on filedocumented in this encounter Care Teams Agricultural Equipment Test Engineer Relationship Specialty Start Date End Date Sabrina Jerome NP [address] [place] [address] PCP - General 03/29/21 documented as of this encounter
--- OUTSIDE RECORDS SUMMARY | 2024-05-27 13:19 | XMS_ITS | Encounter Summary ---
Author Organization [facility] Address [address] [place] [address] Care Team Providers Care Stencil Sprayer Name Role Phone Hanane Pollock NP Primary Care Provider [phone] Reason for Visit * Reason Onset Date Comments Other 04/29/2018 Encounter Details Date Type Department Care Team (Late st Contact Info) Description 04/29/2018 Telephone [facility] General Surgery - [facility] [address] [place] [address] Bharat Dowd MD 111 [facility], Level [address] [place] [address] Other Social History Tobacco Use [...] that Guanakito had his colonoscopy here at [facility], which I told him I could not find when he had it or who did it. He was concerned that I could not find it; therefore, I called Guanakito's nurse practitioner Hanane Pollock at [phone], who did research and determinedthat Dr. Sarkis Dean did it 09/12/08 at [facility], and it was found to have [...] Contact Info) Description 05/31/2024 10:00 EST Telemedicine [facility] Infectious Disease - [address] [phone] Lit Pina, DO [address] [place] [address], [address] [place] [address] documented as of this encounter Visit Diagnoses Not on filedocumented in this encounter Care Teams Stencil Sprayer Relationship Specialty Start Date End Date Hanane Pollock, PLATFORM INSPECTOR [facility] [address] [place], [place] [address] PCP - General 01/30/09 02/23/19 documented as of this encounter
--- OUTSIDE RECORDS SUMMARY | 2024-05-27 13:19 | XMS_ITS | Encounter Summary ---
Author Organization [facility] Address [address] [place] [address] Care Team Providers Care Other Sales Support Worker Name Role Phone None, Provider Primary Care Provider Sabrina Kiran COUNTER STITCHER Primary Care Provider Encounter Details Date Type Department Care Team (Late st Contact Info) Description 02/01/2021 Lab Requisition [facility] Pathology & Laboratory Medicine - [facility] [address] [place] [address] Outr Resulting Lab, Provider Social History Tobacco [...] Description 05/31/2024 10:00 EST Telemedicine [facility] Infectious Disease - [facility] [address] [place] [address] Lit Pina, DO 111 [facility], [facility] 5 [place] [phone] documented as of this encounter Procedures Procedure Name Priority Date/Time Associated Diagnosis Comments T CELL SUBSETS Routine 02/01/2021 8:29 EDT HIV 1 RNA QUANTITATION Routine 02/01/2021 8:29 EDT documented in this encounter Results * HIV 1 RNA QUANTITATION (02/01/2021 8:29 EDT) [facility] HIV RNA Detection, Qual Undetected Undetected copies/mL 02/05/2021 15:08 EDT [facility] Blood VENOUS BLOOD / Unknown 02/01/2021 8:29 EDT 02/01/2021 20:29 EDT Narrative [facility] - 02/05/2021 15:08 EDT The quantification range of this assay is 20 IU/mL to 10,000,000 IU/mL. ??Testing was performed on the PADILLA Ampliprep/PADILLA TaqMan HIV v2.0 (Jaleel [employer] us Provider Outr Resulting Lab CHEMISTRY & BLOOD GA S ORDERABLES Final Result [facility] [address] [place] [address] * (ABNORMAL) T CELL SUBSETS (02/01/2021 8:29 EDT) [facility] % CD3 70 56 - 84 % 02/04/2021 19:19 EDT [facility] % CD4 31 31 - 64 % 02/04/2021 19:19 EDT [facility] % CD8 38 9 - 39 % 02/04/2021 19:19 EDT [facility] Absolute CD3 1,607 840-2,669 Cells/uL 02/04/2021 19:19 EDT [facility] Absolute CD4 717 488-1,734 Cells/uL 02/04/2021 19:19 EDT [facility] Absolute CD8 878 154-1,097 Cells/uL 02/04/2021 19:19 EDT [facility] 4/8 Ratio 0.82(L) >=0.90 02/04/2021 19:19 EDT [facility] Blood VENOUS BLOOD / Unknown 02/01/2021 8:29 EDT 02/01/2021 20:29 EDT us Provider Outr Resulting Lab IMMUNOLOGY AND SEROL OGY ORDERABLES Final Result Performing Organization Address City/State/[facility] Co de Phone Number [facility] [address] [place] [address] documented in this encounter Visit Diagnoses Not on filedocumented in this encounter Care Teams Other Sales Support Worker Relationship Specialty Start Date End Date None, Provider PCP - General 03/02/20 03/28/21 Sabrina Jerome, SOM [address] [place] [phone] PCP - General 03/29/21 documented as of this encounter
--- OUTSIDE RECORDS SUMMARY | 2024-05-27 13:19 | XMS_ITS | Encounter Summary ---
Author Organization [facility] Address [address] [place] [address] Care Team Providers Care Clipping Marker Name Role Phone Hanane Pollock NP Primary Care Provider [phone] Reason for Visit * Reason Comments Follow-up Encounter Details Date Type Department Care Team ([facility] st Contact Info) Description 08/31/2018 9:00 EST Office Visit [facility] Infectious Disease [address] [address] Lit Pina, DO 111 [facility], [facility] [address] [place] [phone] HIV (human immunodeficiency virus infection) ([facility]) (Primary Dx) Social History Tobacco Use [...] day (Patient not taking: Reported on 09/17/2017) sngnvnjsdp-doqebtmj-jssndu ala 200-25-25 mg tablet Take 1 Tab [...] cleared - Dental exam, Sees dental at [facility] Encouraged to get a PCM locally (Sabrina Jerome is a ENVIRONMENTAL RESEARCH SCIENTIST close to pt) See us in follow [...] in clinic today. Lit Pina DO Pager [phone] Infectious Diseases documented in this encounter Plan of Treatment Upcoming Encounters Date Type Department Care Team (Late st Contact Info) Description 05/31/2024 10:00 EST Telemedicine [facility] Infectious Disease - [address] [address] Lit Pina DO [address] [place] [address], [address] [place] [address] documented as of this encounter Visit Diagnoses Diagnosis HIV (human immunodeficiency virus infection) ([facility])- Primary Asymptomatic human immunodeficiency virus (HIV) infection status documented in this encounter Care Teams Clipping Marker Relationship Specialty Start Date End Date Hanane Pollock NP [facility] [address] [place], [place] [address] PCP - General 01/30/09 02/23/19 documented as of this encounter
--- OUTSIDE RECORDS SUMMARY | 2024-05-27 13:19 | XMS_ITS | Encounter Summary ---
Author Organization [facility] Address [address] [place] [address] Care Team Providers Care Crew Trainer Name Role Phone None, Provider Primary Care Provider Unavailabl e Reason for Visit * Reason Comments HIV Positive/AIDS Encounter Details Date Type Department Care Team (Late st Contact Info) Description 07/31/2020 9:30 EST Telemedicine [facility] Infectious Disease - [address] [phone] Lit Pina, DO 111 [facility], Level [address] [place] [address] Asymptomatic HIV infection (HCC-CMS) (Primary [...] documented in this encounter Progress Notes * TrempealeauLit roy, DO - 07/31/2020 0930 EST I spent a total of 30 [...] 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 Both parties are on ART and have VL <??20. ?? Closed relationship. His partner is followed at [facility] as well. ?? Doing well in general,??he [...] day (Patient not taking: Reported on 09/17/2017) bihbstoabe-qtstzudh-sqwkvr ala 200-25-25 mg tablet Take 1 Tab [...] A vaccine in distant past. ??Tdap 2011. ?[place]??Apr 2019, looked good so repeat in 10 [...] Contact Info) Description 05/31/2024 10:00 EST Telemedicine [facility] Infectious Disease - [address] [address] Lit Pina, DO 111 [facility], [address] [place] [phone] documented as of this encounter Visit Diagnoses Diagnosis Asymptomatic HIV infection (HCC-CMS)- Primary Asymptomatic human immunodeficiency virus (HIV) infection status documented in this encounter Care Teams Crew Trainer Relationship Specialty Start Date End Date None, Provider PCP - General 03/02/20 03/28/21 documented as of this encounter
--- OUTSIDE RECORDS SUMMARY | 2024-05-27 13:19 | XMS_ITS | Encounter Summary ---
Author Organization [facility] Address [address] [place] [address] Care Team Providers Care Flooring Machine Operator Name Role Phone Sabrina Jerome GLAZING MACHINE OPERATOR Primary Care Provider [phone] Reason for Visit * Reason Comments Other Encounter Details Date Type Department Care Team (Late st Contact Info) Description 01/04/2022 [facility] Infectious Disease [address] [address] Lit Pina, DO 111 [facility], Level [address] [place] [address] Other Social History Tobacco Use [...] Telemedicine [facility] Infectious Disease - [address] [address] Lit Pina, DO 111 [facility], [address] [place] [phone] documented as of this encounter Visit Diagnoses Not on filedocumented in this encounter Care Teams Flooring Machine Operator Relationship Specialty Start Date End Date Sabrina Jerome NP [address] [place] [address] PCP - General 03/29/21 documented as of this encounter
--- OUTSIDE RECORDS SUMMARY | 2024-05-27 13:19 | XMS_ITS | Encounter Summary ---
Author Organization [facility] Address [address] [place] [address] Care Team Providers Care Digital Analytics Manager Name Role Phone Unknown, Provider MD Primary Care Provider Kimberly morrow None, Provider Primary Care Provider Sabrina Kiran HIM SPECIALIST Primary Care Provider [phone] Encounter Details Date Type Department Care Team (Late st Contact Info) Description 08/12/2019 Lab Requisition [facility] Pathology & Laboratory Medicine - [address] [address] Unknown, Provider, Social History Tobacco Use Types [...] Telemedicine [facility] Infectious Disease - [address] [address] Lit Pina, 111 [facility], Level [address] [place] [address] documented as of this encounter Procedures Procedure Name Priority Date/Time Associated Diagnosis Comments QUANTIFERON TB GOLD PLUS Routine 08/11/2019 7:19 EST documented in this encounter Results * QUANTIFERON TB GOLD PLUS (08/11/2019 7:19 EST) Quantiferon Interpretation Negative Negative 08/13/2019 13:52 EST [facility] Comment: No interferon-gamma response [...] minus Nil 0.02 IU/ml 08/13/19 13:52 EST [facility] TB2 Ag minus Nil 0.03 IU/mL 08/13/19 13:52 EST [facility] Blood VENOUS BLOOD / Unknown 08/11/2019 7:19 EST 08/12/2019 16:26 EST Narrative [facility] - 08/13/2019 13:52 EST Results were obtained with the [employer] QuantiFERON-TB Gold Plus JOSEFINA. us Provider Unknown CHEMISTRY & BLOOD GAS ORDERA BLES Final Result [facility] [address] [place] [address] documented in this encounter Visit Diagnoses Not on filedocumented in this encounter Care Teams Digital Analytics Manager Relationship Specialty Start Date End Date Unknown, Provider, PCP - General 02/24/19 03/01/20 None, Provider PCP - General 03/02/20 03/28/21 Sabrina Jerome NP [address] [place] [phone] PCP - General 03/29/21 documented as of this encounter
--- OUTSIDE RECORDS SUMMARY | 2024-05-27 13:19 | XMS_ITS | Clinical Summary ---
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 [...] RAL/3TC/TDF/ATVr Chronic active type B viral hepatitis ([facility]) 01/25/2010 Chronic hepatitis C ([facility]) 01/25/2010 Overview (11/17/2015): Never treated HCV RNA not detectable Unable to genotype 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 Alopecia 01/25/2010 Encounters Date Type Department Care Team Description 05/05/2024 Specialty Pharmacy [facility] [address] [place] [address] Frankie Mitchell, [facility] Refill Coordination Outreach for HIV 04/07/2024 Specialty Pharmacy [facility] [address] [place] [address] Frankie Mitchell [facility] Refill Coordination Outreach for HIV 03/03/2024 Specialty Pharmacy [facility] [address] [place] [address] Frankie Mitchell [facility] Refill Coordination Outreach for HIV from Last [...] Date Comments Screening colonoscopy 2009 HIV positive ([facility]) Social History Tobacco Use Types Packs/Day [...] 26.47 07/20/2015 1513 EST Plan of Treatment Upcoming Encounters Date Type Department Care Team (Late st Contact Info) Description 05/31/2024 10:00 EST Telemedicine [facility] Infectious Disease - [address] [address] Lit Pina, DO 111 [facility], [facility], [address] [place] [address] Health Maintenance Due Date Last Done Comments [...] RNA Qualitative Undetected Undetected 04/03/2023 13:36 EDT [facility] Blood VENOUS BLOOD / Unknown 04/02/2023 9:05 EDT 04/02/2023 17:16 EDT Narrative [facility] - 04/03/2023 13:36 EDT The quantification range of this assay is 15 IU/mL to 100,000,000 IU/mL. Testing was performed using the Lucy HCV test (Jaleel [employer] with the lcuy 6800 System. us Provider Outr Resulting Lab CHEMISTRY & BLOOD GA S ORDERABLES Final Result [facility] [address] [place] [address] from Last 3 Months or Most Recently Relevant to Health Maintenance Insurance [place]ICARE [employer] [place] Care Teams Engineering Job Titles Relationship Specialty Start Date End Date Sabrina Jerome NP [address] [place] [phone] PCP - General 03/29/21
--- OUTSIDE RECORDS SUMMARY | 2024-05-27 13:19 | XMS_ITS | Encounter Summary ---
Author Organization [facility] Address [address] [place] [address] Care Team Providers Care Geosciences Associate Professor Name Role Phone None, Provider Primary Care Provider Unavailabl e Reason for Visit * Reason Comments Follow-up Encounter Details Date Type Department Care Team (Late st Contact Info) Description 02/05/2021 9:30 EDT Telemedicine [facility] Infectious Disease - [address] [address] Lit Pina, DO 111 [facility], Level [address] [place] [address] Asymptomatic HIV infection (HCC-CMS) (Primary [...] documented in this encounter Progress Notes * CoamoDaniLit Filiberto, DO - 02/05/2021 0930 EDT I spent [...] or mental health care. HPI: ??Snide??is a 51??y.o.??male with history significant for HIV [...] relationship. ??His partner (Fernando) is followed at [facility] as well. ?? Doing well in general [...] day (Patient not taking: Reported on 09/17/2017) lusdhszvuv-fotzsdbq-ydyjvc ala 200-25-25 mg tablet Take 1 Tab [...] A vaccine in distant past. ??Tdap 2011. ?[place]??Apr 2019, looked good so repeat in 10 years.?Pneumovax 2019, prevnar 2014. COVID 2020 ?? 5) HTN [...] Description 05/31/2024 10:00 EST Telemedicine [facility] Infectious Disease - [address] [address] Lit Pina, DO 111 [facility], Level [address] [place] [phone] documented as of this encounter Visit Diagnoses Diagnosis Asymptomatic HIV infection (HCC-CMS)- Primary Asymptomatic human immunodeficiency virus (HIV) infection status documented in this encounter Care Teams Geosciences Associate Professor Relationship Specialty Start Date End Date None, Provider PCP - General 03/02/20 03/28/21 documented as of this encounter
--- OUTSIDE RECORDS SUMMARY | 2024-05-27 13:20 | XMS_ITS | Encounter Summary ---
Author Organization [facility] Address [address] [place] [address] Care Team Providers Care Senior Accounting Clerk Name Role Phone Hanane Pollock NP Primary Care Provider [phone] Encounter Details Date Type Department Care Team (Late st Contact Info) Description 08/01/2014 Orders Only [facility] Infectious Disease - [facility] [address] [place], [place] [address] Juli Franz MD Social History Tobacco Use [...] Contact Info) Description 05/31/2024 10:00 EST Telemedicine [facility] Infectious Disease [address] [phone] Lit Pina DO 111 [facility], [facility] 5 [place] [address] documented as of this encounter Procedures Procedure Name Priority Date/Time Associated Diagnosis Comments HIV 1 RNA QUANTITATION Routine 07/18/2014 9:41 EST documented in this encounter Results * HIV 1 RNA QUANTITATION (07/18/2014 9:41 EST) HIV1 RNA, External Detected <20 copies/mL Undetected copies/mL [facility] Comment:Please see scan medi a in PRISM for furtehr information.Test Performed by: [facility] Blood specimen (specimen) 07/18/2014 9:41 EST us Juli Franz MD CHEMISTRY & BLOOD GAS ORDERABL ES Final Result [facility] documented in this encounter Visit Diagnoses Not on filedocumented in this encounter Care Teams Senior Accounting Clerk Relationship Specialty Start Date End Date Hanane Pollock NP [facility] [address] [place] [address] PCP - General 01/30/09 02/23/19 documented as of this encounter
--- OUTSIDE RECORDS SUMMARY | 2024-05-27 13:20 | XMS_ITS | Encounter Summary ---
Author Organization [facility] Address [address] [place] [address] Care Team Providers Care Manager Generation Name Role Phone Hanane Pollock NP Primary Care Provider [phone] Encounter Details Date Type Department Care Team (Late st Contact Info) Description 08/05/2013 Orders Only [facility] Infectious Disease - [facility] [address] [place], [place] [address] Juli Franz MD Social History Tobacco Use [...] Contact Info) Description 05/31/2024 10:00 EST Telemedicine [facility] Infectious Disease [address] [id number] Lit Pina DO 111 [facility] 5 [place] [address] documented as of this encounter [...] Phosphorus, External 2.9 2.5 - 4.9 mg/dL [facility] Blood specimen (specimen) 07/09/2013 8:26 EST Juli Franz MD CHEMISTRY & BLOOD GAS ORDERABL ES Final Result Performing Organization Address [facility]/ZIP Co de Phone Number [facility] * HIV 1 RNA QUANTITATION (07/09/2013 8:26 EST) HIV1 RNA, External Detected Undetected copies/mL [facility] Comment:Test performed at [facility]. See scan media in Prism Blood specimen (specimen) 07/09/2013 8:26 EST Juli Franz MD CHEMISTRY & BLOOD GAS ORDERABL ES Final Result Performing Organization Address City/[facility]/ZIP Co de Phone Number [facility] * CK (07/09/2013 8:26 EST) CK, External 105 39 - 308 U/L [facility] Blood specimen (specimen) 07/09/2013 8:26 EST us Juli Franz MD CHEMISTRY & BLOOD GAS ORDERABL ES Final Result Performing Organization Address City/[facility]/ZIP Co de Phone Number [facility] * (ABNORMAL) LIPID PROFILE (INCLUDES CHOLESTEROL, TRIGLYCERIDES, HDL, LDL) (07/09/2013 8:26 EST) Cholesterol, External 149 50 - 200 mg/dL [facility] Triglycerides , External 347(A) 15 - 150 mg/dL [facility] HDL, External 20(A) 40 - 60 mg/dL [facility] LDL, External 76 mg/dL [facility] Chol/HDL Ratio, External Not given [facility] Fasting?, External Unknown [facility] Comment:See scans for furthe r interpretation. Blood specimen (specimen) 07/09/2013 8:26 EST us Juli Franz MD CHEMISTRY & BLOOD GAS ORDERABL ES Final Result [facility] * (ABNORMAL) HEMAGRAM AND DIFFERENTIAL (07/09/2013 8:26 EST) WBC, External 8.59 4.4 - 10.8 k/cumm [facility] RBC, External 4.57 4.50 - 6.00 m/cumm [facility] Hemoglobin, External 15.8 13.5 - 17.5 g/dL [facility] HCT, External 43.6 40.0 - 50.0 % [facility] MCV, External 95.4(A) 80 - 95 fL [facility] MCH, External 34.6(A) 27.0 - 33.0 pg [facility] MCHC, External 36.2(A) 32.0 - 36.0 % [facility] PLT, External 193 130 - 400 x1000/uL [facility] RDW-CV, External 13.7 11.8 - 14.1 % [facility] Neutrophils, External 52.2 40 - 74 % [facility] Lymphocytes, External 36.0 19 - 44 % [facility] Monocytes, External 7.3 3.0 - 10.0 % [facility] Eosinophils, External 3.8 1 - 7.0 % [facility] Basophils, External 0.6 0.0 - 2.0 % [facility] ABS Neutrophils, External 4.48 1.2 - 6.7 k/cumm [facility] ABS Lymphs, External 3.09 1.2 - 3.4 k/cumm [facility] ABS Monocytes, External 0.63 0.11 - 0.7 k/cumm [facility] ABS Eosinophils, External 0.33 0 - 0.7 k/cumm [facility] ABS Basophils, External 0.05 0.0 - 0.2 k/cumm [facility] Comment:See scans for furthe r interpretation. Blood specimen (specimen) 07/09/2013 8:26 EST us Juli Franz MD PACKAGES & DNA PROBE ORDERABLE S Final Result [facility] * (ABNORMAL) COMPREHENSIVE METABOLIC PANEL (CMP) (07/09/2013 8:26 EST) GFR, Calculated, External >=60.00 >=60.00 mL/min/1. 73m2 [facility] Glucose, Serum, External 81 70 - 100 mg/dL [facility] Albumin, External 4.2 3.4 - 5.0 g/dL [facility] Total Alkaline Phosphatase, External 78 46 - 116 U/L [facility] ALT, External 49 12 - 78 U/L [facility] AST, External 20 15 - 37 U/L [facility] BUN, External 17 7 - 18 mg/dL [facility] Calculated Calcium, External Not given [facility] Calcium, External 8.9 8.5 - 10.1 mg/dL [facility] Chloride, External 106 98 - 107 mmol/L [facility] CO2, External 28.8 21.0 - 32.0 mmol/L [facility] Creatinine, External 1.2 0.8 - 1.3 mg/dL [facility] Fasting?, External Unknown [facility] Potassium, External 4.6 3.5 - 5.1 mmol/L [facility] Sodium, External 144 136 - 145 mmol/L [facility] Total Protein, External 6.9 6.4 - 8.2 g/dL [facility] Bilirubin, Total, External 1.49(A) 0.2 - 1.0 mg/dL [facility] Comment:See scans for furthe r interpretation. Blood specimen (specimen) 07/09/2013 8:26 EST us Juli Franz MD CHEMISTRY & BLOOD GAS ORDERABL ES Final Result [facility] documented in this encounter Visit Diagnoses Not on filedocumented in this encounter Care Teams Manager Generation Relationship Specialty Start Date End Date Hanane Pollock NP [facility] [address] [place] [address] PCP - General 01/30/09 02/23/19 documented as of this encounter
--- OUTSIDE RECORDS SUMMARY | 2024-05-27 13:20 | XMS_ITS | Encounter Summary ---
Author Organization [facility] Address [address] [place] [address] Care Team Providers Care Agency Operator Name Role Phone Hanane Pollock UNDERCUTTER Primary Care Provider [phone] Encounter Details Date Type Department Care Team (Late Contact Info) Description 08/09/2013 Orders Only [facility] Infectious Disease - [facility] [address], [place] [phone] Juli Franz MD Social History Tobacco Use [...] Encounters Date Type Department Care Team (Late Contact Info) Description 05/31/2024 10:00 EST Telemedicine [facility] Infectious Disease [address] [address] Lit Pina DO 111 [facility] 5 [place] [address] documented as of this encounter Visit Diagnoses Not on filedocumented in this encounter Care Teams Agency Operator Relationship Specialty Start Date End Date Hanane Pollock NP [facility] [address] [place] [address] PCP - General 01/30/09 02/23/19 documented as of this encounter
--- OUTSIDE RECORDS SUMMARY | 2024-05-27 13:20 | XMS_ITS | Encounter Summary ---
Author Organization [facility] Address [address] [place] [address] Care Team Providers Care Supervisor Laboratory Name Role Phone Hanane Pollock NP Primary Care Provider [phone] Reason for Visit * Reason Comments Follow-up pt says no pain, but it does bleed and there is something hanging out a bit * Consult (Routine/Next Available) - Specialty Report Received Specialty Diagnoses / Procedures Referred By Ezequiel arita Referred To Contact General Surgery Diagnoses Perianal mass Juli Franz MD Moore, Jesse Samuel, MD Phone: tel: fax: Referral ID Status Reason Start Date Expiration Date Visits Requested Visits Authorized [id number] Specialty Report Received Specialty Services Required 5 1 1 Encounter Details Date Type Department Care Team (Late st Contact Info) Description 07/20/2015 15:30 EST Office Visit [facility] General Surgery - [address] [address] Bharat Dowd MD [address] [place] [address], [address] [place] [address] Internal hemorrhoids with complication (Primary Dx) [...] EST documented in this encounter Functional Status * Because of [...] documented in this encounter Progress Notes * Bharat Dowd [...] Contact Info) Description 05/31/2024 10:00 EST Telemedicine [facility] Infectious Disease - [address] [address] Lit Pina, DO 111 [facility], [address] [place] [address] documented as of this encounter [...] as of this encounter Care Teams Supervisor Laboratory Relationship Specialty Start Date End Date Hanane Pollock NP [facility] [address] [place] [address] PCP - General 01/30/09 02/23/19 documented as of this encounter
--- OUTSIDE RECORDS SUMMARY | 2024-05-27 13:20 | XMS_ITS | Encounter Summary ---
Author Organization [facility] Address [address] [place] [address] Care Team Providers Care Road Service Locksmith Name Role Phone Hanane Pollock NP Primary Care Provider [phone] Reason for Referral * Radiology Services (Routine/Next Available) - Closed Specialty Diagnoses / Procedures Referred By Contac t Referred To Contact Diagnoses HCV infection Viral hepatitis B without mention of hepatic coma, chronic, without mention of hepatitis delta Procedures RAD US ABDOMEN ONE ORGAN/QUADRANT Juli Franz MD Referral ID Status Reason Start Date Expiration Date Visits Re quested Visits Authorized [id number] Closed 03/30/2014 1 1 Reason for Visit * Reason Comments Follow-up Encounter Details Date Type Department Care Team (Late st Contact Info) Description 03/30/2014 9:45 EDT Office Visit [facility] Infectious Disease - [address] [address] Juli Franz MD AIDS (acquired immune deficiency [...] Refills Last Filled Start Date End Date Raltegravir (ISENTRESS) 400 mg tabletIndications:A IDS (acquired immune deficiency syndrome) ([facility]),Encounter for long-term (current) use of other medications Take 1 Tab by mouth 2 times daily. 60 Tab 3 03/30/2014 07/20/2014 atazanavir (REYATAZ) 300 mg capsuleIndications: AIDS (acquired immune deficiency syndrome) ([facility]),Encounter for long-term (current) use of other medications Take 1 Cap by mouth daily. 30 Cap 3 03/30/2014 07/20/2014 tenofovir (VIREAD) 300 mg tabletIndications:A IDS (acquired immune deficiency syndrome) ([facility]),Encounter for long-term (current) use of other medications Take 1 Tab by mouth daily. 30 Tab 3 03/30/2014 07/20/2014 ritonavir (NORVIR) 100 mg tabletIndications:A IDS (acquired immune deficiency syndrome) ([facility]),Encounter for long-term (current) use of other medications Take 1 Tab by mouth every 24 hours. 30 Tab 3 03/30/2014 07/20/2014 lamiVUDine (EPIVIR) 300 mg tabletIndications:A IDS (acquired immune deficiency syndrome) ([facility]),Encounter for long-term (current) use of other medications Take 1 Tab by mouth daily. 30 Tab 3 03/30/2014 07/20/2014 documented in this encounter Progress Notes * Lavonne Ng - 03/31/2014 0841 EDT Mailed office note, med list and lab orders to Hanane Pollock. * Juli Franz MD - 03/30/2014 0942 EDT [facility] FOLLOWUP NOTE DOS 03/30/2014 Last seen: [...] Contact Info) Description 05/31/2024 10:00 EST Telemedicine [facility] Infectious Disease - [address] [address] Lit Pina, DO [address] [place] [address], [address] [place] [address] Scheduled Orders Name Type Priority Associated Diagnoses [...] 300 mg tabletIndications:AIDS (acquired immune deficiency syndrome) (HCC-CMS),Encounter for long-term (current) use of other medications Take 1 Tab by mouth daily. Reorder 11/17/2013 03/30/2014 ritonavir (NORVIR) 100 mg tabletIndications:AIDS (acquired immune deficiency syndrome) (HCC-CMS),Encounter for long-term (current) use of other medications Take 1 Tab by mouth every 24 hours. Reorder 11/17/2013 03/30/2014 tenofovir (VIREAD) 300 mg tabletIndications:AIDS (acquired immune deficiency syndrome) ([facility]),Encounter for long-term (current) use of other medications Take 1 Tab by mouth daily. Reorder 11/17/2013 03/30/2014 atazanavir (REYATAZ) 300 mg capsuleIndications:AIDS (acquired immune deficiency syndrome) ([facility]),Encounter for long-term (current) use of other medications Take 1 Cap by mouth daily. Reorder 11/17/2013 03/30/2014 Raltegravir (ISENTRESS) 400 mg tabletIndications:AIDS (acquired immune deficiency syndrome) ([facility]),Encounter for long-term (current) use of other medications Take 1 Tab by mouth 2 times daily. Reorder 11/17/2013 03/30/2014 documented as of this encounter Care Teams Road Service Locksmith Relationship Specialty Start Date End Date Hanane Pollock NP [facility] [address] [place] [address] PCP - General 01/30/09 02/23/19 documented as of this encounter
--- OUTSIDE RECORDS SUMMARY | 2024-05-27 13:20 | XMS_ITS | Encounter Summary ---
Author Organization [facility] Address [address] [place] [address] Care Team Providers Care Primary Special Educator Name Role Phone Hanane Pollock NP Primary Care Provider [phone] Reason for Referral * Consult (Routine/Next Available) - Specialty Report Received Specialty Diagnoses / Procedures Referred By Ezequiel arita Referred To Contact General Surgery Diagnoses Perianal mass Juli Franz MD Moore, Jesse Samuel, MD Phone: tel: fax: Referral ID Status Reason Start Date Expiration Date Visits Requested Visits Authorized [id number] Specialty Report Received Specialty Services Required 5 [...] Info) Description 06/28/2015 9:30 EST Office Visit [facility] Infectious Disease - [address] [address] Juli Franz MD Decreased hemoglobin (Primary Dx); Hematochezia; Encounter for long-term (current) use of high-risk medication; AIDS (CMS-HCC); Perianal mass Social History Tobacco Use Types [...] Reading Time Taken Comments Blood Pressure 130/80 06/28/[address] EST Pulse - - Temperature - - Respiratory Rate - - Oxygen Saturation - - Inhaled Oxygen Concentration - - Weight 80.1 kg (176 lb 9.4 oz) 06/28/[address] Height - - Body Mass Index 26.08 05/23/2011 0832 EST documented in this encounter Ordered Prescriptions Prescription Sig Dispense Quantity Refills Last Filled Start Date End Date varenicline (CHANTIX ZULMA) 0.5 mg (11)- 1 mg (42) tablet Take one 0.5mg tablet once daily x 3 days then take one 0.5mg tablet twice daily x 4 days then take one 1mg tablet twice daily 53 Tab 0 06/30/2015 01/06/2017 documented in this encounter Progress Notes * Lavonne Ng - 06/30/2015 1609 EST Faxed lab orders to [facility]. * Juli Franz MD - 06/28/2015 1243 EST [facility] FOLLOWUP NOTE DOS 06/28/2015 Last seen: [...] No risk factors for steatohepatitis except for terminal operations supervisor nucleosideanalogue use. We could also be dealing [...] Contact Info) Description 05/31/2024 10:00 EST Telemedicine [facility] Infectious Disease - [address] [id number] Lit Pina, DO [address] [place] [address], [address] [place] [address] Scheduled Referrals Name Type Priority Associated Diagnoses Orde r Schedule AMB CONS/FOLLOW UP GENERAL SURGERY Outpatient Referral Routine Perianal mass Ordered: 06/30/2015 documented as of this encounter Visit Diagnoses Diagnosis Decreased hemoglobin- Primary Anemia, unspecified Hematochezia Blood in stool Encounter for long-term (current) use of high-risk medication Encounter for long-term (current) use of other medications AIDS ([facility]) Human immunodeficiency virus [HIV] disease Perianal mass Other symptoms involving digestive system documented in this encounter Discontinued Medications Medication Sig Discontinue Reason Start Date End Da te GLUC HOWARD/CHONDRO HOWARD A/VIT C/MN (GLUCOSAMINE CHONDROITIN [...] documented as of this encounter Care Teams Primary Special Educator Relationship Specialty Start Date End Date Hanane Pollock NP [facility] [address] [place] [address] PCP - General 01/30/09 02/23/19 documented as of this encounter
--- OUTSIDE RECORDS SUMMARY | 2024-05-27 13:20 | XMS_ITS | Encounter Summary ---
Author Organization [facility] Address [address] [place] [address] Care Team Providers Care Coating Supervisor Name Role Phone Hanane Pollock NP Primary Care Provider Reason for Visit * Reason Comments Other Encounter Details Date Type Department Care Team (Late st Contact Info) Description 03/09/2018 Refill [facility] Infectious Disease [address] [address] Juli Franz MD Other Social History Tobacco [...] 03/10/2018 1528 EDT Left message on [employer] mobil phone [phone] (M). He should call Hanane Odell NP at the [facility] for med refills. documented in this encounter Plan of Treatment Upcoming Encounters Date Type Department Care Team (Late st Contact Info) Description 05/31/2024 10:00 EST Telemedicine [facility] Infectious Disease - [address] [phone] Lit Pina, DO 111 [facility] 5 [place] [id number] documented as of this encounter Visit Diagnoses Not on filedocumented in this encounter Care Teams Coating Supervisor Relationship Specialty Start Date End Date Hanane Pollock NP [facility] [address] [place] [address] PCP - General 01/30/09 02/23/19 documented as of this encounter
--- OUTSIDE RECORDS SUMMARY | 2024-05-27 13:20 | XMS_ITS | Encounter Summary ---
Author Organization [facility] Address [address] [place] [address] Care Team Providers Care Dust Collector Ore Crushing Name Role Phone Hanane Pollock NP Primary Care Provider [phone] Encounter Details Date Type Department Care Team (Late st Contact Info) Description 11/03/2013 Orders Only [facility] Infectious Disease - [facility] [address] [place], [place] [address] Juli Franz MD Social History Tobacco Use [...] Description 05/31/2024 10:00 EST Telemedicine [facility] Infectious Disease [address] [address] Lit Pina DO 111 [facility], [facility] 5 [place] [address] documented as of this encounter Procedures Procedure Name Priority Date/Time Associated Diagnosis Comments COMPLETE BLOOD COUNT AND DIFFERENTIAL Routine 11/01/2013 11:56 EDT PHOSPHORUS Routine 11/01/2013 11:56 EDT CK Routine 11/01/2013 11:56 EDT COMPREHENSIVE METABOLIC PANEL (CMP) Routine 11/01/2013 11:56 EDT documented in this encounter Results * PHOSPHORUS (11/01/2013 11:56 EDT) Phosphorus, [facility] Comment:Ordered in error. Blood specimen (specimen) 11/01/2013 11:56 EDT us Ingris Wilson MD CHEMISTRY & BLOOD GAS ORDERA BLES Final Result [facility] * HEMAGRAM AND DIFFERENTIAL (11/01/2013 11:56 EDT) WBC, [facility] Comment:Ordered in error. RBC, [facility] Comment:Ordered in error. Hemoglobin, [facility] Comment:Ordered in error. HCT, [facility] Comment:Ordered in error. MCV, [facility] Comment:Ordered in error. MCH, [facility] Comment:Ordered in error. MCHC, [facility] Comment:Ordered in error. PLT, [facility] Comment:Ordered in error. RDW-CV, [facility] Comment:Ordered in error. Neutrophils, [facility] Comment:Ordered in error. Lymphocytes, [facility] Comment:Ordered in error. Monocytes, [facility] Comment:Ordered in error. Eosinophils, [facility] Comment:Ordered in error. Basophils, [facility] Comment:Ordered in error. ABS Neutrophils, [facility] Comment:Ordered in error. ABS Lymphs, [facility] Comment:Ordered in error. ABS Monocytes, [facility] Comment:Ordered in error. ABS Eosinophils, [facility] Comment:Ordered in error. ABS Basophils, [facility] Comment:Ordered in error. Blood specimen (specimen) 11/01/2013 11:56 EDT us Ingris Wilson MD PACKAGES & DNA PROBE ORDERAB LES Final Result [facility] * COMPREHENSIVE METABOLIC PANEL (CMP) (11/01/2013 11:56 EDT) GFR, Calculated, [facility] Comment:Ordered in error. Glucose, Serum, [facility] Comment:Ordered in error. Albumin, [facility] Comment:Ordered in error. Total Alkaline Phosphatase, [facility] Comment:Ordered in error. ALT, [facility] Comment:Ordered in error. AST, [facility] Comment:Ordered in error. BUN, [facility] Comment:Ordered in error. Calculated Calcium, [facility] Comment:Ordered in error. Calcium, [facility] Comment:Ordered in error. Chloride, [facility] Comment:Ordered in error. CO2, [facility] Comment:Ordered in error. Creatinine, [facility] Comment:Ordered in error. Fasting?, [facility] Comment:Ordered in error. Potassium, [facility] Comment:Ordered in error. Sodium, [facility] Comment:Ordered in error. Total Protein, [facility] Comment:Ordered in error. Bilirubin, Total, [facility] Comment:Ordered in error. Blood specimen (specimen) 11/01/2013 11:56 EDT us Ingris Wilson MD CHEMISTRY & BLOOD GAS ORDERA BLES Final Result [facility] * CK (11/01/2013 11:56 EDT) CK, External [facility] Comment:Ordered in error. Blood specimen (specimen) 11/01/2013 11:56 EDT us Ingris Wilson MD CHEMISTRY & BLOOD GAS ORDERA BLES Final Result [facility] documented in this encounter Visit Diagnoses Not on filedocumented in this encounter Care Teams Dust Collector Ore Crushing Relationship Specialty Start Date End Date Hanane Pollock NP [facility] [address] [place] [address] PCP - General 01/30/09 02/23/19 documented as of this encounter
--- OUTSIDE RECORDS SUMMARY | 2024-05-27 13:20 | XMS_ITS | Encounter Summary ---
Author Organization [facility] Address [address] [place] [address] Care Team Providers Care Network Engineer Administrator Name Role Phone Hanane Pollock NP Primary Care Provider [phone] Encounter Details Date Type Department Care Team (Late st Contact Info) Description 11/04/2013 Orders Only [facility] Infectious Disease - [facility] [address] [place], [place] [id number] Juli Franz MD Social History Tobacco Use [...] Contact Info) Description 05/31/2024 10:00 EST Telemedicine [facility] Infectious Disease - [address] [id number] Lit Pina DO 111 [facility], [facility] 5 [place] [address] documented as of this encounter [...] GFR, Calculated, External >=60.00 >=60.00 mL/min/1. 73m2 [facility] Glucose, Serum, External 89 70 - 100 mg/dL [facility] Albumin, External 4.5 3.4 - 5.0 g/dL [facility] Total Alkaline Phosphatase, External 85 46 - 116 U/L [facility] ALT, External 45 12 - 78 U/L [facility] AST, External 19 15 - 37 U/L [facility] BUN, External 16 7 - 18 mg/dL [facility] Comment:Corrected reference ranges 11/04/13 at 1842. Calculated Calcium, External Not given [facility] Calcium, External 9.1 8.5 - 10.1 mg/dL [facility] Chloride, External 103 98 - 107 mmol/L [facility] CO2, External 28.6 21.0 - 32.0 mmol/L [facility] Creatinine, External 1.2 0.8 - 1.3 mg/dL [facility] Fasting?, External Unknown [facility] Potassium, External 4.3 3.5 - 5.1 mmol/L [facility] Sodium, External 140 136 - 145 mmol/L [facility] Total Protein, External 7.4 6.4 - 8.2 g/dL [facility] Bilirubin, Total, External 1.56(A) 0.2 - 1.0 mg/dL [facility] Comment:See scans in PRISM f or further interpretation. Blood specimen (specimen) 11/01/2013 11:56 EDT us Juli Franz MD CHEMISTRY & BLOOD GAS ORDERABL ES Final Result [facility] * PHOSPHORUS (11/01/2013 11:56 EDT) Phosphorus, External 3.0 2.5 - 4.9 mg/dL [facility] Blood specimen (specimen) 11/01/2013 11:56 EDT us Juli Franz MD CHEMISTRY & BLOOD GAS ORDERABL ES Final Result Performing Organization Address City/[facility] Co de Phone Number [facility] * (ABNORMAL) HEMAGRAM AND DIFFERENTIAL (11/01/2013 11:56 EDT) WBC, External 8.53 4.4 - 10.8 k/cumm [facility] RBC, External 4.83 4.50 - 6.00 m/cumm [facility] Hemoglobin, External 16.5 13.5 - 17.5 g/dL [facility] HCT, External 47.2 40.0 - 50.0 % [facility] MCV, External 97.7(A) 80 - 95 fL [facility] MCH, External 34.2(A) 27.0 - 33.0 pg [facility] MCHC, External 35.0 32.0 - 36.0 % [facility] PLT, External 213 130 - 400 x1000/uL [facility] RDW-CV, External 13.2 11.8 - 14.1 % [facility] Neutrophils, External 52.6 40 - 74 % [facility] Lymphocytes, External 35.1 19 - 44 % [facility] Monocytes, External 8.2 3.0 - 10.0 % [facility] Eosinophils, External 2.8 1 - 7.0 % [facility] Basophils, External 1.1 0.0 - 2.0 % [facility] ABS Neutrophils, External 4.49 1.2 - 6.7 k/cumm [facility] ABS Lymphs, External 2.99 1.2 - 3.4 k/cumm [facility] ABS Monocytes, External 0.70 0.11 - 0.7 k/cumm [facility] ABS Eosinophils, External 0.24 0 - 0.7 k/cumm [facility] ABS Basophils, External 0.09 0.0 - 0.2 k/cumm [facility] Comment:See scans in PRISM f or further interpretation. Blood specimen (specimen) 11/01/2013 11:56 EDT Juli Franz MD PACKAGES & DNA PROBE ORDERABLE S Final Result Performing Organization Address [facility] Co de Phone Number [facility] * CK (11/01/2013 11:56 EDT) CK, External 132 39 - 308 U/L [facility] Blood specimen (specimen) 11/01/2013 11:56 EDT Juli Franz MD CHEMISTRY & BLOOD GAS ORDERABL ES Final Result Performing Organization Address [facility] Co de Phone Number [facility] * COMPREHENSIVE METABOLIC PANEL (ONCOLOGY USE ONLY-INC MG: DRAW GREEN TOP) (11/01/2013 11:56 EDT) Calcium, External [facility] Comment:Ordered in error. CO2, External [facility] Comment:Ordered in error. AST, External [facility] Comment:Ordered in error. ALT, External [facility] Comment:Ordered in error. Bilirubin, Total, [facility] Comment:Ordered in error. Creatinine, [facility] Comment:Ordered in error. Calculated Calcium, [facility] Comment:Ordered in error. Anion Gap, [facility] Comment:Ordered in error. Total Protein, [facility] Comment:Ordered in error. Potassium, External [facility] Comment:Ordered in error. Total Alkaline Phosphatase, External [facility] Comment:Ordered in error. Albumin, [facility] Comment:Ordered in error. BUN, External [facility] Comment:Ordered in error. GFR, Calculated, [facility] Comment:Ordered in error. Fasting?, [facility] Comment:Ordered in error. Chloride, [facility] Comment:Ordered in error. Glucose, Serum, [facility] Comment:Ordered in error. Sodium, [facility] Comment:Ordered in error. Magnesium, [facility] Comment:Ordered in error. Blood specimen (specimen) 11/01/2013 11:56 EDT us Juli Franz MD CHEMISTRY & BLOOD GAS ORDERABL ES Final Result [facility] documented in this encounter Visit Diagnoses Not on filedocumented in this encounter Care Teams Network Engineer Administrator Relationship Specialty Start Date End Date Hanane Pollock NP [facility] [address] [place] [address] PCP - General 01/30/09 02/23/19 documented as of this encounter
--- OUTSIDE RECORDS SUMMARY | 2024-05-27 13:20 | XMS_ITS | Encounter Summary ---
Author Organization [facility] Address [address] [place] [address] Care Team Providers Care Superannuation Funds Manager Name Role Phone Hanane Pollock NP Primary Care Provider [phone] Encounter Details Date Type Department Care Team (Late st Contact Info) Description 04/04/2017 Results Only Imaging [facility] Infectious Disease - [facility] [place] [address] [place] [id number] Juli Franz MD Social History Tobacco Use [...] Contact Info) Description 05/31/2024 10:00 EST Telemedicine [facility] Infectious Disease [address] [phone] Lit Pina, DO 111 [facility], Level [address] [place] [address] documented as of this encounter Procedures Procedure Name Priority Date/Time Associated Diagnosis Comments VL RENAL ARTERY DUPLEX 04/04/2017 9:27 EDT documented in this encounter Results * VL RENAL ARTERY DUPLEX (04/04/2017 9:27 EDT) Anatomical Region Laterality Modality Other 04/04/2017 9:27 EDT Narrative 04/07/2017 9:41 EDT Vascular Diagnostic Laboratory [facility] [address] [place] [address]. [place] [address] Technologist: Erik Trivedi Fellow: IMPRESSIONS 1. Normal [...] Michaud 04/07/2017 09:41 Procedure Note Juan Pablo Michuad MD - 04/07/2017 Vascular Diagnostic Laboratory [facility] Care [place], [facility], Level [address] [facility] [place] [address] Technologist: Erik Trivedi Fellow: IMPRESSIONS 1. Normal [...] Pablo Michaud 04/07/2017 09:41 Juli Franz MD [facility] VASCULAR ORDERABLES Fin al Result documented in this encounter Visit Diagnoses Not on filedocumented in this encounter Care Teams Superannuation Funds Manager Relationship Specialty Start Date End Date Hanane Pollock NP [facility] [address] [place] [address] PCP - General 01/30/09 02/23/19 documented as of this encounter
--- OUTSIDE RECORDS SUMMARY | 2024-05-27 13:20 | XMS_ITS | Encounter Summary ---
Author Organization [facility] Address [address] [place] [address] Care Team Providers Care Hay Stacker Operator Name Role Phone Hanane Pollock EMAIL MANAGER Primary Care Provider [phone] Encounter Details Date Type Department Care Team (Late Contact Info) Description 12/23/2014 Orders Only [facility] Infectious Disease - [facility] [address] [place], [place] [phone] Juli Franz MD Social History Tobacco Use [...] Info) Description 05/31/2024 10:00 EST Telemedicine [facility] Infectious Disease [address] [address] Lit Pina DO [address] [facility], [facility] [address] [place] [address] documented as of this encounter Visit Diagnoses Not on filedocumented in this encounter Care Teams Hay Stacker Operator Relationship Specialty Start Date End Date Hanane Pollock NP [facility] [address] [place] [address] PCP - General 01/30/09 02/23/19 documented as of this encounter
--- OUTSIDE RECORDS SUMMARY | 2024-05-27 13:20 | XMS_ITS | Encounter Summary ---
Author Organization [facility] Address [address] [place] [address] Care Team Providers Care Dryer Operator Name Role Phone Hanane Pollock NP Primary Care Provider [phone] Encounter Details Date Type Department Care Team (Late st Contact Info) Description 05/31/2015 Orders Only [facility] Infectious Disease - [address] [address] Juli Franz MD [place] (acquired immune deficiency syndrome) [place] (Primary Dx); AIDS ([facility]) Social History Tobacco Use Types [...] of this encounter Ordered Prescriptions Prescription Sig Dispense Quantity Refills Last Filled Start Date End Date ritonavir (NORVIR) 100 mg tabletIndications:A IDS (acquired immune deficiency syndrome) ([facility]),AIDS ([facility]) Take 1 Tab by mouth every 24 hours 30 Tab 5 05/31/2015 11/27/2015 tenofovir (VIREAD) 300 mg tabletIndications:A IDS (acquired immune deficiency syndrome) ([facility]),AIDS ([facility]) Take 1 Tab by mouth daily 30 Tab 5 05/31/2015 12/29/2015 Raltegravir (ISENTRESS) 400 mg tabletIndications:A IDS (acquired immune deficiency syndrome) ([facility]),AIDS (HCC-CMS) Take 1 Tab by mouth 2 times daily 60 Tab 5 05/31/2015 12/29/2015 lamiVUDine (EPIVIR) 300 mg tabletIndications:A IDS (acquired immune deficiency syndrome) (HCC-CMS),AIDS (HCC-CMS) Take 1 Tab by mouth daily 30 Tab 5 05/31/2015 12/29/2015 atazanavir (REYATAZ) 300 mg capsuleIndications: AIDS (acquired immune deficiency syndrome) (HCC-CMS),AIDS (HCC-CMS) Take 1 Cap by mouth daily 30 Cap 5 05/31/2015 11/27/2015 documented in this encounter Plan of Treatment Upcoming Encounters Date Type Department Care Team (Late st Contact Info) Description 05/31/2024 10:00 EST Telemedicine [facility] Infectious Disease - [address] [address] Lit Pina, DO [address] [place] [address], [facility] 5 [place] [address] documented as of this encounter Visit Diagnoses Diagnosis AIDS (acquired immune deficiency syndrome) (HCC-CMS)- Primary Human immunodeficiency virus [HIV] disease AIDS (HCC-CMS) Human immunodeficiency virus [HIV] disease documented in this encounter Discontinued Medications Medication Sig Discontinue Reason Start Date End Da te atazanavir (REYATAZ) 300 mg capsuleIndications:AIDS (acquired immune deficiency syndrome) (HCC-CMS),Encounter for long-term (current) use of other medications Take 1 Cap by mouth daily. Reorder 07/20/2014 05/31/2015 lamiVUDine (EPIVIR) 300 mg tabletIndications:AIDS (acquired immune deficiency syndrome) (HCC-CMS),Encounter for long-term (current) use of other medications Take 1 Tab by mouth daily. Reorder 07/20/2014 05/31/2015 Raltegravir (ISENTRESS) 400 mg tabletIndications:AIDS (acquired immune deficiency syndrome) (HCC-CMS),Encounter for long-term (current) use of other medications Take 1 Tab by mouth 2 times daily. Reorder 07/20/2014 05/31/2015 tenofovir (VIREAD) 300 mg tabletIndications:AIDS (acquired immune deficiency syndrome) ([facility]),Encounter for long-term (current) use of other medications Take 1 Tab by mouth daily. Reorder 07/20/2014 05/31/2015 ritonavir (NORVIR) 100 mg tabletIndications:AIDS (acquired immune deficiency syndrome) ([facility]),Encounter for long-term (current) use of other medications Take 1 Tab by mouth every 24 hours. Reorder 07/20/2014 05/31/2015 documented as of this encounter Care Teams Dryer Operator Relationship Specialty Start Date End Date Hanane Pollock NP [facility] [address] [place] [address] PCP - General 01/30/09 02/23/19 documented as of this encounter
--- OUTSIDE RECORDS SUMMARY | 2024-05-27 13:20 | XMS_ITS | Encounter Summary ---
Author Organization [facility] Address [address] [place] [address] Care Team Providers Care Bilingual Inside Sales Representative Name Role Phone Hanane Pollock NP Primary Care Provider [phone] Encounter Details Date Type Department Care Team (Late st Contact Info) Description 11/06/2016 Orders Only [facility] Infectious Disease - [address] [address] Juli Franz MD [place] (acquired immune deficiency syndrome) [place] [place] [place] AIDS [place] Social History Tobacco Use Types Packs/Day Years [...] mg tabletIndications:A IDS (acquired immune deficiency syndrome) ([facility]),AIDS (HCC-CMS) Take 1 Tab by mouth 2 times daily. 60 Tab 5 11/06/2016 03/12/2017 emtricitab-rilpivir -tenofo ala 200-25-25 mg tablet Take 1 Tab by mouth daily. 30 Tab 1 11/06/2016 01/06/2017 documented in this encounter Plan of Treatment Upcoming Encounters Date Type Department Care Team (Late st Contact Info) Description 05/31/2024 10:00 EST Telemedicine [facility] Infectious Disease - [facility] [address] [place], [place] [address] Lit Pina, DO 111 [facility], Level [address] [place] [address] documented as of this encounter [...] documented as of this encounter Care Teams Bilingual Inside Sales Representative Relationship Specialty Start Date End Date Hanane Pollock NP [facility] [address] [place] [address] PCP - General 01/30/09 02/23/19 documented as of this encounter
--- OUTSIDE RECORDS SUMMARY | 2024-05-27 13:20 | XMS_ITS | Encounter Summary ---
Author Organization [facility] Address [address] [place] [address] Care Team Providers Care Business Performance Advisor Name Role Phone Hanane Pollock NP Primary Care Provider [phone] Encounter Details Date Type Department Care Team (Latest Contact Info) Description 03/12/2016 Documentation Visit [facility] Infectious Disease - [address] [address] Juli Franz MD AIDS (acquired immunodeficiency syndrome), CD4 <=200 ([facility]) (Primary Dx) Social History [...] Description 05/31/2024 10:00 EST Telemedicine [facility] Infectious Disease - [address] [address] Lit iPna, DO [address] [place] [address], [address] [place] [address] documented as of this encounter Visit Diagnoses Diagnosis AIDS (acquired immunodeficiency syndrome), CD4 <=200 ([facility])- Primary Human immunodeficiency virus [HIV] disease documented in this encounter Care Teams Business Performance Advisor Relationship Specialty Start Date End Date Hanane Pollock NP [facility] [address] [place] [address] PCP - General 01/30/09 02/23/19 documented as of this encounter
--- OUTSIDE RECORDS SUMMARY | 2024-05-27 13:20 | XMS_ITS | Encounter Summary ---
Author Organization [facility] Address [address] [place] [address] Care Team Providers Care Rn Documentation Specialist Name Role Phone Hanane Pollock NP Primary Care Provider [phone] Reason for Visit * Reason Comments Other Encounter Details Date Type Department Care Team (Late Contact Info) Description 09/10/2017 Refill [facility] Infectious Disease [address] [phone] Juli Franz MD Other Social History Tobacco [...] Contact Info) Description 05/31/2024 10:00 EST Telemedicine [facility] Infectious Disease [address] [phone] Lit Pina, DO 111 [facility], [address] [place] [phone] documented as of this encounter Visit Diagnoses Diagnosis AIDS (acquired immune deficiency syndrome) (HCC-CMS) Human immunodeficiency virus [HIV] disease AIDS ([facility]) Human immunodeficiency virus [HIV] disease documented in this encounter Care Teams Rn Documentation Specialist Relationship Specialty Start Date End Date Hanane Pollock NP [facility] [address] [place], [place] [phone] PCP - General 01/30/09 02/23/19 documented as of this encounter
--- OUTSIDE RECORDS SUMMARY | 2024-05-27 13:20 | XMS_ITS | Encounter Summary ---
Author Organization [facility] Address [address] [place] [address] Care Team Providers Care Tire Repairer Name Role Phone Hanane Pollock NP Primary Care Provider [phone] Reason for Visit * Reason Comments Follow-up Encounter Details Date Type Department Care Team (Late st Contact Info) Description 03/12/2017 9:45 EDT Office Visit [facility] Infectious Disease [address] [address] Juli Franz MD Essential hypertension (Primary Dx); [...] Refills Last Filled Start Date End Date emtricitab-rilpivir -tenofo ala 200-25-25 mg tablet Take 1 Tab by mouth daily. 30 Tab 6 03/12/2017 09/17/2017 Raltegravir (ISENTRESS) 400 mg tabletIndications:A IDS (acquired immune deficiency syndrome) (HCC-CMS),AIDS (HCC-CMS) Take 1 Tab by mouth 2 times daily. 60 Tab 6 03/12/2017 09/17/2017 lisinopril (PRINIVIL, ZESTRIL) 10 mg tablet Take 1 Tab by mouth daily. 7 Tab 03/12/2017 08/22/2023 documented in this encounter Progress Notes * Juli Franz MD - 03/12/2017 0945 EDT [facility] FOLLOWUP NOTE DOS 03/12/2017 Last seen: 11/06/2016 SUBJECTIVE: [place] presents for reevaluation of his HIV disease and his chronic hepatitis B and C. Going to [facility] for his BP. They have been titrating [...] none + MJ daily Lives with his usp partner who is also HIV + They [...] make a change to decrease risk for usp nephrotoxicity. He has chronic HBV so wanted [...] and a follow-up with me in the [facility] in 4-6 months. We will plan to [...] - He has been seen at the [facility] for his hypertension since he was [...] study. He is willing to go to [place] or to [facility] to have this done, and Hanane will [...] will look into scheduling this through the [facility]. 7. Depression -he has had issues [...] Contact Info) Description 05/31/2024 10:00 EST Telemedicine [facility] Infectious Disease - [facility] [address] [place], [place] [phone] Lit Pina, DO 111 [facility], [facility] [address] [place] [phone] documented as of this encounter Visit Diagnoses [...] mouth 2 times daily. Reorder 11/06/2016 03/12/2017 tumeaeyuvk-fptgrsku-attpo o ala 200-25-25 mg tablet Take 1 Tab by mouth daily. Reorder 02/14/2017 03/12/2017 documented as of this encounter Care Teams Tire Repairer Relationship Specialty Start Date End Date Hanane Pollock NP [facility] [address] [place] [address] PCP - General 01/30/09 02/23/19 documented as of this encounter
--- OUTSIDE RECORDS SUMMARY | 2024-05-27 13:20 | XMS_ITS | Encounter Summary ---
Author Organization [facility] Address [address] [place] [address] Care Team Providers Care Clinical Research Technician Name Role Phone Hanane Pollock NP Primary Care Provider Reason for Visit * Reason Comments Follow-up Encounter Details Date Type Department Care Team ([facility] st Contact Info) Description 09/17/2017 9:45 EST Office Visit [facility] Infectious Disease [address] [address] Juli Franz MD AIDS (acquired immune deficiency [...] Last Filled Start Date End Date raltegravir 600 mg tablet Take 1,200 mg by mouth daily. 60 Tab 5 09/17/2017 08/21/2023 emtricitab-rilpivir -tenofo ala 200-25-25 mg tablet Take 1 Tab by mouth daily. 30 Tab 5 09/17/2017 06/28/2022 documented in this encounter Progress Notes * Juli Franz MD - 09/17/2017 0945 EST [facility] FOLLOWUP NOTE DOS 09/17/2017 Last seen: [...] none + MJ daily Lives with his care home partner who is also HIV + They [...] GC/chlamydia neg Lipid panel: TGs 88 HDL43 [id number] US of the renal arteries done 03/2017 was nl ASSESSMENT AND PLAN: 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 He has good adherence. He had had an increase in his Cr so we wanted to make a change to decrease risk for exterminator termite nephrotoxicity. He has chronic HBV so wanted [...] and a follow-up with me in the [facility] in 4-6 months. 2. Tobacco use - He did not tolerate Chantix, but he has been successful in decreasing his tobacco use on his own. He is motivated to quit. Unfortunately it is not clear that his partner is ready to quit. Guanakito is still focused on the goal of quitting. 3. HTN - He has not been seen at the [facility] to have his blood pressure checked ?since [...] Contact Info) Description 05/31/2024 10:00 EST Telemedicine [facility] Infectious Disease - [address] [address] Lit Pina, DO [address] [place] [address], [facility] [address] [place] [address] documented as of this encounter Visit Diagnoses Diagnosis AIDS (acquired immune deficiency syndrome) (HCC-CMS)- Primary Human immunodeficiency virus [HIV] disease Essential hypertension Unspecified essential hypertension Tobacco use Tobacco use disorder Chronic active hepatitis B without delta agent (HCC-CMS) Encounter for long-term current use of high risk medication documented in this encounter Discontinued Medications Medication Sig Discontinue Reason Start Date End Da te Raltegravir (ISENTRESS) 400 mg tabletIndications:AIDS (acquired immune deficiency syndrome) (HCC-CMS),AIDS (HCC-CMS) Take 1 Tab by mouth 2 times daily. 03/12/2017 09/17/2017 ostnrthcmz-yxqdhjxr-lygua o ala 200-25-25 mg tablet Take 1 Tab by mouth daily. Reorder 03/12/2017 09/17/2017 documented as of this encounter Historical Medications * This list may reflect changes made after this encounter. Cholecalciferol, Vitamin D3, 400 unit tablet Take 400 Units by mouth daily. added in this encounter Care Teams Clinical Research Technician Relationship Specialty Start Date End Date Hanane Pollock NP [facility] [address] [place] [address] PCP - General 01/30/09 02/23/19 documented as of this encounter
--- OUTSIDE RECORDS SUMMARY | 2024-05-27 13:20 | XMS_ITS | Encounter Summary ---
Author Organization [facility] Address [address] [place] [address] Care Team Providers Care Film Editor Name Role Phone Hanane Pollock NP Primary Care Provider [phone] Reason for Visit * Reason Comments Other Encounter Details Date Type Department Care Team (Late st Contact Info) Description 01/06/2017 Refill [facility] Infectious Disease - [address] [address] Juli Franz MD Other Social History Tobacco [...] Refills Last Filled Start Date End Date doxazosin (CARDURA) 4 mg tablet Take 1 tablet by mouth every day 30 Tab 01/06/2017 02/14/2017 ODEFSEY 200-25-25 mg tablet Take 1 tablet by mouth every day 30 Tab 01/06/2017 02/14/2017 documented in this encounter Miscellaneous Notes * Telephone Encounter - Ceci Fletcher RN - 01/06/2017 1724 EDT E-RX Odefsy and Cardura to [facility] pharmacy in [place]. Patient is seen in [facility]. documented in this encounter Plan of Treatment Upcoming Encounters Date Type Department Care Team (Late st Contact Info) Description 05/31/2024 10:00 EST Telemedicine [facility] Infectious Disease - [facility] [address] [place], [place] [id number] Lit Pina, DO [address] [facility], [address] [place] [address] documented as of this encounter Visit Diagnoses Diagnosis Acquired immunodeficiency syndrome ([facility])- Primary Human immunodeficiency virus [HIV] disease documented in this encounter Discontinued Medications Medication Sig Discontinue Reason Start Date End Da te varenicline (CHANTIX ZULMA) 0.5 mg (11)- 1 mg (42) tablet Take one 0.5mg tablet once daily x 3 days then take one 0.5mg tablet twice daily x 4 days then take one 1mg tablet twice daily Patient Stopped Taking 06/30/2015 01/06/2017 tmwxiitlvi-deutkium-hd nofo ala 200-25-25 mg tablet Take 1 Tab by mouth daily. Reorder 11/06/2016 01/06/2017 doxazosin (CARDURA) 4 mg tablet Take 1 Tab by mouth daily. Reorder 11/06/2016 01/06/2017 documented as of this encounter Care Teams Film Editor Relationship Specialty Start Date End Date Hanane Pollock NP [facility] [address] [place] [address] PCP - General 01/30/09 02/23/19 documented as of this encounter
--- OUTSIDE RECORDS SUMMARY | 2024-05-27 13:20 | XMS_ITS | Encounter Summary ---
Author Organization [facility] Address [address] [place] [address] Care Team Providers Care Executive Director Contract Shop Name Role Phone Hanane Pollock NP Primary Care Provider [phone] Reason for Visit * Reason Comments Follow-up Encounter Details Date Type Department Care Team ([facility] st Contact Info) Description 07/20/2014 10:30 EST Office Visit [facility] Infectious Disease [address] [address] Juli Franz MD AIDS (acquired immune deficiency [...] Refills Last Filled Start Date End Date tenofovir (VIREAD) 300 mg tabletIndications:A IDS (acquired immune deficiency syndrome) ([facility]),Encounter for long-term (current) use of other medications Take 1 Tab by mouth daily. 30 Tab 3 07/20/2014 05/31/2015 ritonavir (NORVIR) 100 mg tabletIndications:A IDS (acquired immune deficiency syndrome) ([facility]),Encounter for long-term (current) use of other medications Take 1 Tab by mouth every 24 hours. 30 Tab 3 07/20/2014 05/31/2015 Raltegravir (ISENTRESS) 400 mg tabletIndications:A IDS (acquired immune deficiency syndrome) ([facility]),Encounter for long-term (current) use of other medications Take 1 Tab by mouth 2 times daily. 60 Tab 3 07/20/2014 05/31/2015 lamiVUDine (EPIVIR) 300 mg tabletIndications:A IDS (acquired immune deficiency syndrome) ([facility]),Encounter for long-term (current) use of other medications Take 1 Tab by mouth daily. 30 Tab 3 07/20/2014 05/31/2015 atazanavir (REYATAZ) 300 mg capsuleIndications: AIDS (acquired immune deficiency syndrome) ([facility]),Encounter for long-term (current) use of other medications Take 1 Cap by mouth daily. 30 Cap 3 07/20/2014 05/31/2015 documented in this encounter Progress Notes * Lavonne Ng - 07/21/2014 1019 EST Mailed office note, med list and lab orders to Hanane Pollock. * Juli Franz MD - 07/20/2014 1041 EST [facility] FOLLOWUP [...] vaccine with Prevnar at future visit. Jaime rubio repeat syphilis serology but they have been [...] Telemedicine [facility] Infectious Disease - [address] [address] Lit Pina, DO [address] [place] [address], [address] [place] [address] documented as of this encounter Visit Diagnoses Diagnosis AIDS (acquired immune deficiency syndrome) ([facility])- Primary Human immunodeficiency virus [HIV] disease [...] 100 mg tabletIndications:AIDS (acquired immune deficiency syndrome) ([facility]),Encounter for long-term (current) use of other medications Take 1 Tab by mouth every 24 hours. Reorder 03/30/2014 07/20/2014 tenofovir (VIREAD) 300 mg tabletIndications:AIDS (acquired immune deficiency syndrome) ([facility]),Encounter for long-term (current) use of other medications Take 1 Tab by mouth daily. Reorder 03/30/2014 07/20/2014 documented as of this encounter Care Teams Executive Director Contract Shop Relationship Specialty Start Date End Date Hanane Pollock NP [facility] [address] [place] [address] PCP - General 01/30/09 02/23/19 documented as of this encounter
--- OUTSIDE RECORDS SUMMARY | 2024-05-27 13:20 | XMS_ITS | Encounter Summary ---
Author Organization [facility] Address [address] [place] [address] Care Team Providers Care Tire Assembler Name Role Phone Hanane Pollock NP Primary Care Provider [phone] Reason for Visit * Reason Comments Follow-up Encounter Details Date Type Department Care Team (Latest Contact Info) Description 12/14/2014 9:45 EDT Office Visit [facility] Infectious Disease [address] [address] Juli Franz MD Human immunodeficiency virus (HIV) disease ([facility]) (Primary Dx); Encounter for long-term (current) [...] Progress Notes * Beena Wayne - 12/15/2014 0881 EDT Mailed note,med list, labs to Hanane Pollock. * Juli Franz MD - 12/14/2014 0950 EDT [facility] FOLLOWUP NOTE DOS 07/20/2014 Last seen: [...] Will repeat syphilis serology with labs today kianay have been in a monogamous relationship for [...] Contact Info) Description 05/31/2024 10:00 EST Telemedicine [facility] Infectious Disease - [facility] [address] [place] [address] Lit Pina, DO [address] [facility], [address] [place] [phone] documented as of this encounter Visit Diagnoses Diagnosis Human immunodeficiency virus (HIV) disease ([facility])- Primary Human immunodeficiency virus [HIV] disease Encounter for long-term (current) use of other medications documented in this encounter Care Teams Tire Assembler Relationship Specialty Start Date End Date Hanane Pollock NP [facility] [address] [place] [address] PCP - General 01/30/09 02/23/19 documented as of this encounter
--- OUTSIDE RECORDS SUMMARY | 2024-05-27 13:20 | XMS_ITS | Encounter Summary ---
Author Organization [facility] Address [address] [place] [address] Care Team Providers Care Director Medicaid Name Role Phone Hanane Pollock NP Primary Care Provider [phone] Reason for Visit * Reason Onset Date Comments Follow-up 11/20/2015 Encounter Details Date Type Department Care Team (Late st Contact Info) Description 11/20/2015 Telephone [facility] Infectious Disease - [address] [address] New Mix RN Follow-up Social History Tobacco [...] Encounter - New Mix RN - 11/20/2015 9106 EDT Patient would like a call from Dr. Franz [phone], to discuss the medical situation they spoke about at his 11/15/2015 appointment in [facility]. Explained Dr. Franz was at a conference today and wouldn't be able to return his call today. Explained that she is aware he called today. Mailed patient an after visit summary with the [employer] code, so he join my health on line. Dr. Franz may change his medications, she will contact patient to discuss options. NEW MIX RN documented in this encounter Plan of Treatment Upcoming Encounters Date Type Department Care Team (Late st Contact Info) Description 05/31/2024 10:00 EST Telemedicine [facility] Infectious Disease - [address] [address] Lit Pina, DO [address] [place] [address], [address] [place] [phone] documented as of this encounter Visit Diagnoses Not on filedocumented in this encounter Care Teams Director Medicaid Relationship Specialty Start Date End Date Hanane Pollock NP [facility] [address] [place] [address] PCP - General 01/30/09 02/23/19 documented as of this encounter
--- OUTSIDE RECORDS SUMMARY | 2024-05-27 13:20 | XMS_ITS | Encounter Summary ---
Author Organization [facility] Address [address] [place] [address] Care Team Providers Care Ball Ender Name Role Phone Hanane Pollock NP Primary Care Provider Reason for Visit * Reason Onset Date Comments Medications Refill 02/14/2017 Encounter Details Date Type Department Care Team (Late st Contact Info) Description 02/14/2017 Telephone [facility] Infectious Disease - [address] [address] Jinny Francisco, RN Medications Refill Social History Tobacco Use [...] Notes * Telephone Encounter - Jinny Francisco RN - 02/14/2017 1227 EDT See prior note documented in this encounter Plan of Treatment Upcoming Encounters Date Type Department Care Team (Late st Contact Info) Description 05/31/2024 10:00 EST Telemedicine [facility] Infectious Disease - [address] [address] Lit Pina, DO [address] [facility], [address] [place] [address] documented as of this encounter Visit Diagnoses Not on filedocumented in this encounter Care Teams Ball Ender Relationship Specialty Start Date End Date Hanane Pollock, SOM [facility] [address] [place] [address] PCP - General 01/30/09 02/23/19 documented as of this encounter
--- OUTSIDE RECORDS SUMMARY | 2024-05-27 13:20 | XMS_ITS | Encounter Summary ---
Author Organization [facility] Address [address] [place] [address] Care Team Providers Care Director Park Name Role Phone Hanane Pollock NP Primary Care Provider [phone] Reason for Visit * Reason Comments Follow-up Encounter Details Date Type Department Care Team (Latest Contact Info) Description 11/15/2015 9:30 EDT Office Visit [facility] Infectious Disease - [address] [address] Juli Franz MD Acquired immunodeficiency syndrome ([facility]) (Primary Dx); Encounter for long-term current use of high risk medication; Chronic hepatitis B (CMS-HCC) ([facility]CC-[facility]) Social History Tobacco Use Types Packs/Day Years [...] Refills Last Filled Start Date End Date rilpivirine 25 mg tabletIndications:Acqu ired immunodeficiency syndrome (HCC-CMS) Take 1 Tab by mouth daily. 30 Tab 1 11/15/2015 6 documented in this encounter Progress Notes * Juli Franz MD - 11/15/2015 0859 EDT [facility] FOLLOWUP NOTE DOS 11/15/2015 Last seen: [...] usually + MJ daily Lives with his penitentiary partner who is also HIV + They [...] 4 weeks and FU with me in [facility]. 2. Tobacco use - He is [...] - 11/15/20152046 EDTAssociated Problem(s): Acquired immunodeficiency syndrome ([facility]) HIV/AIDS - h/o cryptococcal meningitis ART [...] Contact Info) Description 05/31/2024 10:00 EST Telemedicine [facility] Infectious Disease - [address] [id number] Lit Pina, DO [address] [place] [address], [address] [place] [address] documented as of this encounter Visit Diagnoses Diagnosis Acquired immunodeficiency syndrome (HCC-CMS)- Primary Human immunodeficiency virus [HIV] disease Encounter for long-term current use of high risk medication Chronic hepatitis B (HCC-CMS) Viral hepatitis B without mention of hepatic coma, chronic, without mention of hepatitis delta documented in this encounter Care Teams Director Park Relationship Specialty Start Date End Date Hanane Pollock NP [facility] [address] [place] [address] PCP - General 01/30/09 02/23/19 documented as of this encounter
--- OUTSIDE RECORDS SUMMARY | 2024-05-27 13:20 | XMS_ITS | Encounter Summary ---
Author Organization [facility] Address [address] [place] [address] Care Team Providers Care Watch Assembler Name Role Phone Hanane Pollock NP Primary Care Provider [phone] Reason for Visit * Reason Comments Follow-up Encounter Details Date Type Department Care Team ([facility] st Contact Info) Description 11/17/2013 9:45 EDT Office Visit [facility] Infectious Disease [address] [address] Juli Franz MD AIDS (acquired immune deficiency [...] mg tabletIndications:A IDS (acquired immune deficiency syndrome) ([facility]),Encounter for long-term (current) use of other medications Take 1 Tab by mouth daily. 30 Tab 3 11/17/2013 03/30/2014 ritonavir (NORVIR) 100 mg tabletIndications:A IDS (acquired immune deficiency syndrome) ([facility]),Encounter for long-term (current) use of other medications Take 1 Tab by mouth every 24 hours. 30 Tab 3 11/17/2013 03/30/2014 Raltegravir (ISENTRESS) 400 mg tabletIndications:A IDS (acquired immune deficiency syndrome) ([facility]),Encounter for long-term (current) use of other medications Take 1 Tab by mouth 2 times daily. 60 Tab 3 11/17/2013 03/30/2014 lamiVUDine (EPIVIR) 300 mg tabletIndications:A IDS (acquired immune deficiency syndrome) ([facility]),Encounter for long-term (current) use of other medications Take 1 Tab by mouth daily. 30 Tab 3 11/17/2013 03/30/2014 atazanavir (REYATAZ) 300 mg capsuleIndications: AIDS (acquired immune deficiency syndrome) ([facility]),Encounter for long-term (current) use of other medications Take 1 Cap by mouth daily. 30 Cap 3 11/17/2013 03/30/2014 documented in this encounter Progress Notes * Lavonne Ng - 11/18/2013 0907 EDT Mailed to Hanane Pollock * Juli Franz MD - 11/17/2013 0940 EDT [facility] FOLLOWUP NOTE DOS 11/17/2013 Last [...] Contact Info) Description 05/31/2024 10:00 EST Telemedicine [facility] Infectious Disease - [address] [address] Lit Pina, DO [address] [place] [address], [address] [place] [address] documented as of this encounter [...] documented as of this encounter Care Teams Watch Assembler Relationship Specialty Start Date End Date Hanane Pollock NP [facility] [address] [place] [address] PCP - General 01/30/09 02/23/19 documented as of this encounter
--- OUTSIDE RECORDS SUMMARY | 2024-05-27 13:20 | XMS_ITS | Encounter Summary ---
Author Organization [facility] Address [address] [place] [address] Care Team Providers Care Money Order Clerk Name Role Phone Hanane Pollock NP Primary Care Provider [phone] Reason for Visit * Reason Comments Follow-up Encounter Details Date Type Department Care Team (Latest Contact Info) Description 02/21/2016 9:30 EDT Office Visit [facility] Infectious Disease [address] [address] Juli Franz MD AIDS (acquired immunodeficiency syndrome), CD4 <=200 (CMS-HCC) (Primary Dx); Other secondary hypertension; New daily [...] Juli Franz MD - 02/21/2016 0921 EDT [facility] FOLLOWUP NOTE DOS 02/21/2016 Last seen: 11/14/2014 SUBJECTIVE: Guanakito presents for reevaluation of his HIV disease and his chronic hepatitis B and C. Having VICK x 1.5 weeks. Generalized head pain. 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 Ears popping today. No nasal congestion. 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 He has chronic HBV so want [...] more closely. He is a pt at [facility]. Hanane Rossi arranged for him to [...] [facility] Infectious Disease - [facility] [address] [place], [place] [id number] Lit Pina, DO [address] [place] [address], [address] [place] [phone] documented as of this encounter Visit Diagnoses Diagnosis AIDS (acquired immunodeficiency syndrome), CD4 <=200 ([facility])- Primary Human immunodeficiency virus [HIV] disease Other secondary hypertension New daily persistent headache Chronic hepatitis B ([facility]) Viral hepatitis B without mention of hepatic coma, chronic, without mention of hepatitis delta Tobacco abuse Tobacco use disorder documented in this encounter Historical Medications * This list may reflect changes made after this encounter. acetaminophen (TYLENOL EXTRA STRENGTH) 500 mg tablet Take 1,000 mg by mouth every 12 hours as needed for Pain. added in this encounter Care Teams Money Order Clerk Relationship Specialty Start Date End Date Hanane Pollock NP [facility] [address] [place] [address] PCP - General 01/30/09 02/23/19 documented as of this encounter
--- OUTSIDE RECORDS SUMMARY | 2024-05-27 13:20 | XMS_ITS | Encounter Summary ---
Author Organization [facility] Address [address] [place] [address] Care Team Providers Care Wireless Architect Name Role Phone Hanane Pollock NP Primary Care Provider [phone] Encounter Details Date Type Department Care Team (Late st Contact Info) Description 12/21/2014 Orders Only [facility] Infectious Disease - [facility] [address] [place], [place] [address] Juli Franz MD Social History Tobacco Use [...] Info) Description 05/31/2024 10:00 EST Telemedicine [facility] Infectious Disease [address] [address] Lit Pina DO [address] [facility] [address] [place] [address] documented as of this encounter Procedures Procedure Name Priority Date/Time Associated Diagnosis Comments HIV 1 RNA QUANTITATION Routine 12/14/2014 11:44 EDT documented in this encounter Results * HIV 1 RNA QUANTITATION (12/14/2014 11:44 EDT) HIV1 RNA, External Undetected Undetected copies/mL [facility] Comment:Please see the scann ed report in [facility] for further interpretation. Test performed by [facility]. Blood specimen (specimen) 12/14/2014 11:44 EDT us Juli Franz MD CHEMISTRY & BLOOD GAS ORDERABL ES Final Result [facility] documented in this encounter Visit Diagnoses Not on filedocumented in this encounter Care Teams Wireless Architect Relationship Specialty Start Date End Date Hanane Pollock, SOM [facility] [address] [place] [address] PCP - General 01/30/09 02/23/19 documented as of this encounter
--- OUTSIDE RECORDS SUMMARY | 2024-05-27 13:20 | XMS_ITS | Encounter Summary ---
Author Organization [facility] Address [address] [place] [address] Care Team Providers Care Rn Appeals Name Role Phone Hanane Mccormack NP Primary Care Provider [phone] Encounter Details Date Type Department Care Team (Late Contact Info) Description 05/22/2017 Results Only [facility] [phone] Peggy Dias, DO [address] [place] [address] Social History Tobacco Use Types [...] Telemedicine [facility] Infectious Disease - [address] [address] Lit Pina, DO [address] [facility], [address] [place] [address] documented as of this encounter [...] when reading/interpret ing unformatted reports. Name: ? SACHINKALEB ? Accession #: ? [id number] ? : ? 1970 (Age: 47) ??M ? Collect Date: ? 05/22/2017 ? Location: ? [facility] ? Receive Date: ? 05/24/2017 ? Provider: PEGGY DIAS DO Copy to: HANANE MCCORMACK LATRINE CLEANER ? Final Pathologic Diagnosis: SUBMITTED TISSUE, RIGHT, [...] (ASCP) 05/26/2017 9:24 AM End of Report [facility] 05/22/2017 7:28 EST 05/24/2017 7:28 EST us Peggy Dias DO PATHOLOGY ORDERABLES Final Res ult [facility] [address] [place] [address] documented in this encounter Visit Diagnoses Not on filedocumented in this encounter Care Teams Rn Appeals Relationship Specialty Start Date End Date Hanane Mccormack NP [facility] [address] [place] [address] PCP - General 01/30/09 02/23/19 documented as of this encounter
--- OUTSIDE RECORDS SUMMARY | 2024-05-27 13:20 | XMS_ITS | Encounter Summary ---
Author Organization [facility] Address [address] [place] [address] Care Team Providers Care Quarter Backer Name Role Phone Hanane Pollock NP Primary Care Provider [phone] Reason for Referral * Radiology Services (Routine/Next Available) - Closed Specialty Diagnoses / Procedures Referred By Contac t Referred To Contact Diagnoses Essential hypertension Procedures RAD US RENAL ARTERY DOPPLER Juli Franz MD Referral ID Status Reason Start Date Expiration Date Visits Re quested Visits Authorized [id number] Closed 11/06/2016 1 1 Reason for Visit * Reason Comments Follow-up Encounter Details Date Type Department Care Team (Late st Contact Info) Description 11/06/2016 9:00 EDT Office Visit [facility] Infectious Disease - [address] [address] Juli Franz MD AIDS (CMS-HCC) (Primary Dx); [...] Juli Franz MD - 11/06/2016 0900 EDT [facility] FOLLOWUP NOTE DOS 11/06/2016 Last seen: 02/21/2016 SUBJECTIVE: Guanakito presents for reevaluation of his HIV disease and his chronic hepatitis B and C. At the time of his last visit he was experiencing headaches and was found to have new hypertension He has been seen at the [facility] since that time and was started on [...] none + MJ daily Lives with his correction partner who is also HIV + They [...] make a change to decrease risk for assistant terminal manager nephrotoxicity. He has chronic HBV so want [...] - as above. He was seen at [facility] was started on lisinopril but he developed palpitations he is now on Cardura. His blood pressure is not adequately controlled so we elected to increase his Cardura to 4 mg a day. I placed new prescription for the 4 mg tablet as he will run out of his2 mg tablets sooner. Encouraged him to follow up at [facility] to have his blood pressure checks so [...] is a counselor that works out of [facility] and she will arrange this connection. I also think that he may benefit from a connection with [facility], and that referral can be made through the [facility] 8. Chest pressure - he was having [...] Description 05/31/2024 10:00 EST Telemedicine [facility] Infectious Disease - [facility] [address] [place], [place] [address] Lit Pina, DO [address] [place] [address], [address] [place] [address] Scheduled Orders Name Type Priority [...] may reflect changes made after this encounter. doxazosin (CARDURA) 2 mg tablet Take 2 mg by mouth daily. 11/06/2016 added in this encounter Care Teams Quarter Backer Relationship Specialty Start Date End Date Hanane Pollock NP [facility] [address] [place] [address] PCP - General 01/30/09 02/23/19 documented as of this encounter
--- OUTSIDE RECORDS SUMMARY | 2024-05-27 13:20 | XMS_ITS | Encounter Summary ---
Author Organization [facility] Address [address] [place] [address] Care Team Providers Care Manager Apple Name Role Phone Hanane Pollock NP Primary Care Provider [phone] Encounter Details Date Type Department Care Team (Late st Contact Info) Description 12/20/2014 Orders Only [facility] Infectious Disease - [facility] [address] [place], [place] [address] Juli Franz MD Social History Tobacco Use [...] Contact Info) Description 05/31/2024 10:00 EST Telemedicine [facility] Infectious Disease [address] [id number] Lit Pian DO 111 [facility], [facility] [address] [place] [address] documented as of this encounter Procedures Procedure Name Priority Date/Time Associated Diagnosis Comments COMPLETE BLOOD COUNT AND DIFFERENTIAL Routine 12/14/2014 11:44 EDT PHOSPHORUS Routine 12/14/2014 11:44 EDT COMPREHENSIVE METABOLIC PANEL (CMP) Routine 12/14/2014 11:44 EDT documented in this encounter Results * (ABNORMAL) HEMAGRAM AND DIFFERENTIAL (12/14/2014 11:44 EDT) WBC, External 10.70 4.4 - 10.8 k/cumm [facility] RBC, External 5.07 4.50 - 6.00 m/cumm [facility] Hemoglobin, External 17.2 13.5 - 17.5 g/dL [facility] HCT, External 49.2 40.0 - 50.0 % [facility] MCV, External 97.0(A) 80 - 95 fL [facility] MCH, External 33.9(A) 27.0 - 33.0 pg [facility] MCHC, External 35.0 32.0 - 36.0 % [facility] PLT, External 212 130 - 400 x1000/uL [facility] RDW-CV, External 13.6 11.8 - 14.1 % [facility] Neutrophils, External 62.3 % [facility] Lymphocytes, External 26.5 % [facility] Monocytes, External 8.6 % [facility] Eosinophils, External 2.0 % [facility] Basophils, External 0.4 % [facility] ABS Neutrophils, External 6.67 1.2 - 6.7 k/cumm [facility] ABS Lymphs, External 2.84 1.2 - 3.4 k/cumm [facility] ABS Monocytes, External 0.92(A) 0.11 - 0.7 k/cumm [facility] ABS Eosinophils, External 0.21 0.0 - 0.7 k/cumm [facility] ABS Basophils, External 0.04 0.0 - 0.2 k/cumm [facility] Comment:See scans in prism. Blood specimen (specimen) 12/14/2014 11:44 EDT Juli Franz MD PACKAGES & DNA PROBE ORDERABLE S Final Result [facility] * PHOSPHORUS (12/14/2014 11:44 EDT) Pathologist [facility] Phosphorus, External 3.4 2.5 - 4.9 mg/dL [facility] Blood specimen (specimen) 12/14/2014 11:44 EDT Juli Franz MD CHEMISTRY & BLOOD GAS ORDERABL ES Final Result [facility] * (ABNORMAL) COMPREHENSIVE METABOLIC PANEL (CMP) (12/14/2014 11:44 EDT) GFR, Calculated, External >=60.00 >=60.00 mL/min/1. 73m2 [facility] Glucose, Serum, External 87 70 - 100 mg/dL [facility] Albumin, External 4.4 3.4 - 5.0 g/dL [facility] Total Alkaline Phosphatase, External 87 46 - 116 U/L [facility] ALT, External 49 12 - 78 U/L [facility] AST, External 20 15 - 37 U/L [facility] BUN, External 21(A) 7 - 18 mg/dL [facility] Calculated Calcium, External Not given [facility] Calcium, External 9.2 8.5 - 10.1 mg/dL [facility] Chloride, External 102 98 - 107 mmol/L [facility] CO2, External 26.3 21.0 - 32.0 mmol/L [facility] Creatinine, External 1.0 0.8 - 1.3 mg/dL [facility] Fasting?, External Unknown [facility] Potassium, External 3.9 3.5 - 5.1 mmol/L [facility] Sodium, External 140 136 - 145 mmol/L [facility] Total Protein, External 7.5 6.4 - 8.2 g/dL [facility] Bilirubin, Total, External 2.25(A) 0.2 - 1.0 mg/dL [facility] Comment:See scans in prism. Blood specimen (specimen) 12/14/2014 11:44 EDT us Juli Franz MD CHEMISTRY & BLOOD GAS ORDERABL ES Final Result [facility] documented in this encounter Visit Diagnoses Not on filedocumented in this encounter Care Teams Manager Apple Relationship Specialty Start Date End Date Hanane Pollock, ASSEMBLER BODY [facility] [address] [place] [address] PCP - General 01/30/09 02/23/19 documented as of this encounter
--- OUTSIDE RECORDS SUMMARY | 2024-05-27 13:20 | XMS_ITS | Encounter Summary ---
Author Organization [facility] Address [address] [place] [address] Care Team Providers Care Welfare Administrator Name Role Phone Hanane Pollock NP Primary Care Provider [phone] Reason for Visit * Reason Comments Other Encounter Details Date Type Department Care Team (Late Contact Info) Description 02/04/2017 Refill [facility] Infectious Disease [address] [address] Juli Franz MD Other Social History Tobacco [...] Contact Info) Description 05/31/2024 10:00 EST Telemedicine [facility] Infectious Disease [address] [address] Lit Pina, DO [address] [facility], [address] [place] [address] documented as of this encounter Visit Diagnoses Not on filedocumented in this encounter Care Teams Welfare Administrator Relationship Specialty Start Date End Date Hanane Pollock NP [facility] [address] [place], [place] [address] PCP - General 01/30/09 02/23/19 documented as of this encounter
--- OUTSIDE RECORDS SUMMARY | 2024-05-27 13:20 | XMS_ITS | Encounter Summary ---
Author Organization [facility] Address [address] [place] [address] Care Team Providers Care Pipeline Maintenance Supervisor Name Role Phone Hanane Pollock NP Primary Care Provider [phone] Encounter Details Date Type Department Care Team (Late st Contact Info) Description 04/20/2016 Orders Only [facility] Infectious Disease - [facility] [address] [place], [place] [address] Juli Franz MD Social History Tobacco Use [...] Contact Info) Description 05/31/2024 10:00 EST Telemedicine [facility] Infectious Disease [address] [address] Lit Pina, DO 111 [facility], [address] [place] [address] documented as of this encounter Visit Diagnoses Not on filedocumented in this encounter Care Teams Pipeline Maintenance Supervisor Relationship Specialty Start Date End Date Hanane Pollock NP [facility] [address] [place] [address] PCP - General 01/30/09 02/23/19 documented as of this encounter
--- OUTSIDE RECORDS SUMMARY | 2024-05-27 13:20 | XMS_ITS | Encounter Summary ---
Author Organization [facility] Address [address] [place] [address] Care Team Providers Care Hotel Engineer Name Role Phone Hanane Pollock NP Primary Care Provider [phone] Encounter Details Date Type Department Care Team (Latest Contact Info) Description 05/22/2017 19:00 EST - 05/22/2017 23:59 EST Hospital Encounter [address] [address] Unknown, Provider, MD Discharge Disposition: Home or Self Care [...] 07/20/2015 15:13 EST documented in this encounter Medications at Time of Discharge acetaminophen (TYLENOL EXTRA STRENGTH) 500 mg tablet Take 1,000 mg by mouth every 12 hours as needed for Pain. doxazosin (CARDURA) 4 mg tablet Take 1 tablet by mouth every day 30 Tab 1 02/14/2017 emtricitab-rilpiv ir-tenofo ala 200-25-25 mg tablet Take 1 Tab by mouth daily. 30 Tab 6 03/12/2017 09/17/2017 lisinopril (PRINIVIL, ZESTRIL) 10 mg tablet Take 1 Tab by mouth daily. 7 Tab 03/12/2017 08/22/2023 Raltegravir (ISENTRESS) 400 mg tabletIndications :AIDS (acquired immune deficiency syndrome) (HCC-CMS),AIDS (HCC-CMS) Take 1 Tab by mouth 2 times daily. 60 Tab 6 03/12/2017 09/17/2017 documented as of this encounter Discharge Disposition Disposition Code Departure Means Destination Home or Self Longterm documented in this encounter Plan of Treatment Upcoming Encounters Date Type Department Care Team (Late st Contact Info) Description 05/31/2024 10:00 EST Telemedicine [facility] Infectious Disease - [address] [address] Lit Pina, DO 111 [facility], [address] [place] [address] documented as of this encounter Visit Diagnoses Not on filedocumented in this encounter Care Teams Hotel Engineer Relationship Specialty Start Date End Date Hanane Pollock NP [facility] [address] [place] [address] PCP - General 01/30/09 02/23/19 documented as of this encounter
--- OUTSIDE RECORDS SUMMARY | 2024-05-27 13:20 | XMS_ITS | Encounter Summary ---
Author Organization [facility] Address [address] [place] [address] Care Team Providers Care Assistant Banquet Manager Name Role Phone Hanane Pollock NP Primary Care Provider [phone] Reason for Visit * Reason Onset Date Comments Appointment Related 04/27/2018 Encounter Details Date Type Department Care Team (Late st Contact Info) Description 04/27/2018 Telephone [facility] General Surgery - [facility] [address] [place] [address] Bharat Dowd MD 111 [facility], [address] [place] [address] Appointment Related Social History Tobacco [...] Notes * Telephone Encounter - Nakia Sosa - 04/27/2018 9174 EDT Calling for his partner to make colo appointment as directed by the letter sent out. 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 documented in this encounter Plan of Treatment Upcoming Encounters Date Type Department Care Team (Late st Contact Info) Description 05/31/2024 10:00 EST Telemedicine [facility] Infectious Disease - [facility] [address] [place], [place] [address] Lit Pina, DO 111 [facility], [address] [place] [address] documented as of this encounter Visit Diagnoses Not on filedocumented in this encounter Care Teams Assistant Banquet Manager Relationship Specialty Start Date End Date Hanane Pollock NP [facility] [address] [place], [place] [address] PCP - General 01/30/09 02/23/19 documented as of this encounter
--- OUTSIDE RECORDS SUMMARY | 2024-05-27 13:20 | XMS_ITS | Encounter Summary ---
Author Organization [facility] Address [address] [place] [address] Care Team Providers Care Information Technology Security Analyst Name Role Phone Hanane Pollock NP Primary Care Provider [phone] Reason for Visit * Reason Onset Date Comments Medication Problem 01/25/2015 Encounter Details Date Type Department Care Team (Late Contact Info) Description 01/25/2015 Telephone [facility] Infectious Disease - [address] [address] Juli Franz MD Medication Problem Social History [...] Encounter - Juli Franz MD - 01/25/2015 0257 EDT TC from Fernando stating that Guanakito went to [facility] and they were told that they were not ordered yet. I spoke to [facility] - they order the meds once monthly. Lorie Flo last prescribed the meds 11/2014. They have 2 more refills left on that RX so they have active Rxs at [facility]. documented in this encounter Plan of Treatment Upcoming Encounters Date Type Department Care Team (Late st Contact Info) Description 05/31/2024 10:00 EST Telemedicine [facility] Infectious Disease - [facility] [address] [place] [address] Lit Pina, DO 111 [facility], [facility] [address] [place] [address] documented as of this encounter Visit Diagnoses Not on filedocumented in this encounter Care Teams Information Technology Security Analyst Relationship Specialty Start Date End Date Hanane Pollock NP [facility] [address] [place] [address] PCP - General 01/30/09 02/23/19 documented as of this encounter
--- OUTSIDE RECORDS SUMMARY | 2024-05-27 13:20 | XMS_ITS | Encounter Summary ---
Author Organization [facility] Address [address] [place] [address] Care Team Providers Care Delivery Rep Name Role Phone Hanane Pollock NP Primary Care Provider [phone] Reason for Visit * Reason Onset Date Comments Medications Refill 12/29/2015 Encounter Details Date Type Department Care Team (Late st Contact Info) Description 12/29/[address] [facility] Infectious Disease - [address] [address] Juli Franz MD Medications Refill Social History [...] Take with food. 30 Tab 5 12/29/2015 7 Raltegravir (ISENTRESS) 400 mg tabletIndications:AIDS (acquired immune deficiency syndrome) (HCC-CMS),AIDS (HCC-CMS) Take 1 Tab by mouth 2 times daily. 60 Tab 5 12/29/2015 7 tenofovir (VIREAD) 300 mg tabletIndications:AIDS (acquired immune deficiency syndrome) (HCC-CMS),AIDS (HCC-CMS) Take 1 Tab by mouth daily. 30 Tab 5 12/29/2015 7 lamiVUDine (EPIVIR) 300 mg tabletIndications:AIDS (acquired immune deficiency syndrome) (HCC-CMS),AIDS (HCC-CMS) Take 1 Tab by mouth daily. 30 Tab 5 12/29/2015 7 documented in this encounter Miscellaneous Notes * Telephone Encounter - Ceci Fletcher RN - 12/29/2015 1140 EDT E-RX Isentress #60 with 5 refills, Viread #30 with 5 refills, Epivir #30 with 5 refills, and Edurant #30 with [address] [facility] in [facility]. * Telephone Encounter - Ceci Fletcher RN [...] Telephone Encounter - Beena Wayne - 12/29/2015 0844 EDT [facility] patient. Hanane Phill out today. Partner Fernando states that Guanakito needs the following medications refilled TODAY: Viread, Isentress, Norvir, Reyataz, and a new medication that he does not know the name of. They use [facility] in [facility]. Fernando would like a call back to let him know when it is called in: [phone]. documented in this encounter Plan of Treatment Upcoming Encounters Date Type Department Care Team (Late st Contact Info) Description 05/31/2024 10:[address] [facility] Infectious Disease - [facility] [address] [place] [address] Lit Pina, DO 111 [facility], [facility] [address] [place] [address] documented as of this encounter [...] documented as of this encounter Care Teams Delivery Rep Relationship Specialty Start Date End Date Hanane Pollock NP [facility] [address] [place] [address] PCP - General 01/30/09 02/23/19 documented as of this encounter
--- OUTSIDE RECORDS SUMMARY | 2024-05-27 13:20 | XMS_ITS | Encounter Summary ---
Author Organization [facility] Address [address] [place] [address] Care Team Providers Care Vp Director Of Finance Name Role Phone Hanane Pollock NP Primary Care Provider [phone] Reason for Visit * Reason Onset Date Comments Medications Refill 02/14/2017 Encounter Details Date Type Department Care Team (Late st Contact Info) Description 02/14/2017 Refill [facility] Infectious Disease - [facility] [address] [place] [address] Juli Franz MD Medications Refill Social History [...] mouth every day 30 Tab 1 02/14/2017 emtricitab-rilpivi r-tenofo ala 200-25-25 mg tablet Take 1 Tab by mouth daily. 30 Tab 1 02/14/2017 03/12/2017 documented in this encounter Miscellaneous Notes * Telephone Encounter - Jinny Francisco V RN - 02/14/[address] [facility]. Partner of pt calling insisting rx refills be sent in immediately Refills on Odefsey and cardura sent to requested pharmacy documented in this encounter Plan of Treatment Upcoming Encounters Date Type Department Care Team (Late st Contact Info) Description 05/31/2024 10:00 EST Telemedicine [facility] Infectious Disease - [facility] [address] [place], [place] [address] Lit Pina, DO [address] [place] [address], [address] [place] [address] documented as of this encounter Visit Diagnoses Not on filedocumented in this encounter Discontinued Medications Medication Sig Discontinue Reason Start Date End Da te doxazosin (CARDURA) 4 mg tablet Take 1 tablet by mouth every day Reorder 01/06/2017 02/14/2017 ODEFSEY 200-25-25 mg tablet Take 1 tablet by mouth every day 01/06/2017 02/14/2017 documented as of this encounter Care Teams Vp Director Of Finance Relationship Specialty Start Date End Date Hanane Pollock NP [facility] [address] [place] [address] PCP - General 01/30/09 02/23/19 documented as of this encounter
--- OUTSIDE RECORDS SUMMARY | 2024-05-27 13:20 | XMS_ITS | Encounter Summary ---
Author Organization [facility] Address [address] [place] [address] Care Team Providers Care Vegetable Farming Supervisor Name Role Phone Hanane Pollock NP Primary Care Provider [phone] Encounter Details Date Type Department Care Team (Late st Contact Info) Description 11/17/2015 Documentation Visit [facility] Infectious Disease - [facility] [address] [place] [address] Juli Franz MD Social History Tobacco Use [...] Notes * Juli Franz MD - 11/17/2015 8009 EDT Guanakito Cedillo: Per pharmacy your prescription for Reyataz and Norvir will run out by 5/16. I think that we should change your [...] 4 weeks and FU with [facility]the following month documented in this encounter Plan of Treatment Upcoming Encounters Date Type Department Care Team (Late st Contact Info) Description 05/31/2024 10:00 EST Telemedicine [facility] Infectious Disease - [address] [address] Lit Pina, DO [address] [place] [address], [address] [place] [address] documented as of this encounter Visit Diagnoses Not on filedocumented in this encounter Care Teams Vegetable Farming Supervisor Relationship Specialty Start Date End Date Hanane Pollock NP [facility] [address] [place] [address] PCP - General 01/30/09 02/23/19 documented as of this encounter
--- OUTSIDE RECORDS SUMMARY | 2024-05-27 13:20 | XMS_ITS | Encounter Summary ---
Author Organization [facility] Address [address] [place] [address] Care Team Providers Care Canvas Goods Maker Name Role Phone Hanane Pollock NP Primary Care Provider [phone] Encounter Details Date Type Department Care Team (Late st Contact Info) Description 04/18/2016 Orders Only [facility] Infectious Disease - Main [place] [address] [place], [place] [address] Juli Franz MD Social History Tobacco Use [...] Contact Info) Description 05/31/2024 10:00 EST Telemedicine [facility] Infectious Disease [address] [address] Lit Pina, DO [address] [facility], [address] [place] [address] documented as of this encounter Procedures Procedure Name Priority Date/Time Associated Diagnosis Comments HIV 1 RNA QUANTITATION Routine 04/04/2016 15:12 EDT documented in this encounter Results * (ABNORMAL) HIV 1 RNA QUANTITATION (04/04/2016 15:12 EDT) HIV1 RNA, External Detected Undected copies/mL [facility] Comment:Please see the scan ed report in PRISM for further interpretation. Test performed by the [facility]. Blood specimen (specimen) 04/04/2016 15:12 EDT us Juli Franz MD CHEMISTRY & BLOOD GAS ORDERABL ES Final Result [facility] documented in this encounter Visit Diagnoses Not on filedocumented in this encounter Care Teams Canvas Goods Maker Relationship Specialty Start Date End Date Hanane Pollock NP [facility] [address] [place] [address] PCP - General 01/30/09 02/23/19 documented as of this encounter
--- OUTSIDE RECORDS SUMMARY | 2024-05-27 13:20 | XMS_ITS | Encounter Summary ---
Author Organization [facility] Address [address] [place] [address] Care Team Providers Care Cutting Machine Operator Name Role Phone Hanane Pollock NP Primary Care Provider [phone] Encounter Details Date Type Department Care Team (Late st Contact Info) Description 11/27/2015 Orders Only [facility] Infectious Disease - Main [place] [address] [place], [place] [address] Juli Franz MD Social History Tobacco Use [...] Contact Info) Description 05/31/2024 10:00 EST Telemedicine [facility] Infectious Disease [address] [address] Lit Pina, DO 111 [facility], [address] [place] [address] documented as of this encounter [...] documented as of this encounter Care Teams Cutting Machine Operator Relationship Specialty Start Date End Date Hanane Pollock NP [facility] [address] [place], [place] [id number] PCP - General 01/30/09 02/23/19 documented as of this encounter
--- OUTSIDE RECORDS SUMMARY | 2024-05-27 13:20 | XMS_ITS | Encounter Summary ---
Author Organization [facility] Address [address] [place] [address] Care Team Providers Care Partition Setter Name Role Phone Hanane Pollock NP Primary Care Provider [phone] Reason for Visit * Reason Comments Follow-up Encounter Details Date Type Department Care Team (Latest Contact Info) Description 07/28/2013 9:30 EST Office Visit [facility] Infectious Disease - [address] [address] Juli Franz MD Human immunodeficiency virus (HIV) [...] Pollock. * Juli Franz MD - 07/28/2013 0946 EST [facility] FOLLOWUP NOTE DOS 07/28/2013 Last seen: 03/03/2013 [...] him have repeat blood work and a joceline marquez with myself in the comprehensive care clinic [...] [facility] - [facility] [address] [place] [address] Lit Pina, DO [address] [place] [address], [address] [place] [address] documented as of this encounter [...] coma documented in this encounter Care Teams Partition Setter Relationship Specialty Start Date End Date Hanane Pollock NP [facility] [address] [place] [address] PCP - General 01/30/09 02/23/19 documented as of this encounter
--- OUTSIDE RECORDS SUMMARY | 2024-05-27 13:21 | XMS_ITS | Encounter Summary ---
Author Organization [facility] Address [address] [place] [address] Care Team Providers Care Tong Carrier Name Role Phone Hanane Pollock NP Primary Care Provider [phone] Encounter Details Date Type Department Care Team (Late st Contact Info) Description 10/07/2007 Before PRISM Converted Visit (Maple) [facility] - Maple conversion [address] [place] [address] Juli Franz MD Social History Tobacco Use Types Packs/Day Years Used Date Smoking Tobacco: Never Assessed Sex and Gender Information Value Date Recorded Sex Assigned at Not on file Legal Sex Male 18:27 EST Gender Identity Not on file Sexual Orientation Not on file documented as of this encounter Progress Notes * Juli Franz MD - 09/19/2009 1651 EST DIVISION OF INFECTIOUS DISEASE [facility] PROGRESS/FOLLOWUP NOTE - 10/07/2007 DONNELL Calabrese [...] care for his mother who lives in [place] and who does not drive. He has [...] like him to have a consultation with Katei and see if we could do better in terms of his antidepressant. Signed by Juli Franz MD 11/10/2007 06:24 Juli Franz MD - Juli Franz MD - CRISTAL Job ID: [id number] Doc ID: [id number] cc: Hanane Pollock NP documented in this encounter Plan of Treatment Upcoming Encounters Date Type Department Care Team (Late st Contact Info) Description 05/31/2024 10:00 EST Telemedicine [facility] Infectious Disease - [address] [address] Lit Pina, DO [address] [place] [address], [facility] [address] [place] [phone] documented as of this encounter Visit Diagnoses Not on filedocumented in this encounter Care Teams Tong Carrier Relationship Specialty Start Date End Date Hanane Pollock NP [facility] [address] [place], [place] [address] PCP - General 01/30/09 02/23/19 documented as of this encounter
--- OUTSIDE RECORDS SUMMARY | 2024-05-27 13:21 | XMS_ITS | Encounter Summary ---
Author Organization [facility] Address [address] [place] [address] Care Team Providers Care Electric Meter Repairer Helper Name Role Phone Hanane Pollock NP Primary Care Provider Encounter Details Date Type Department Care Team (Late st Contact Info) Description 08/14/2005 Before PRISM Converted Visit (Maple) [facility] - Maple conversion [address] [place] [address] Juli Franz MD Social History Tobacco Use [...] 0450 EST DIVISION OF INFECTIOUS DISEASE - [facility] PROGRESS/FOLLOWUP NOTE - 08/14/2005 SUBJECTIVE: Gu[place] presents [...] Franz MD P - MR Job ID: [id number] Document ID: [id number] cc: [facility] Hanane Pollock NP documented in this encounter Plan of Treatment Upcoming Encounters Date Type Department Care Team (Late st Contact Info) Description 05/31/2024 10:00 EST Telemedicine [facility] Infectious Disease - [address] [id number] Lit Pina, [address] [place] [address], [address] [place] [address] documented as of this encounter Visit Diagnoses Not on filedocumented in this encounter Care Teams Electric Meter Repairer Helper Relationship Specialty Start Date End Date Hanane Pollock NP [facility] [address] [place], [place] [address] PCP - General 01/30/09 02/23/19 documented as of this encounter
--- OUTSIDE RECORDS SUMMARY | 2024-05-27 13:21 | XMS_ITS | Encounter Summary ---
Author Organization [facility] Address [address] [place] [address] Care Team Providers Care Grounds Crew Supervisor Name Role Phone Hanane Pollock NP Primary Care Provider [phone] Encounter Details Date Type Department Care Team (Late st Contact Info) Description 01/04/2005 Before PRISM Converted Visit (Maple) [facility] - Maple conversion [address] [place] [address] Juli Franz MD Social History Tobacco Use [...] Comprehensive Care Clinic PROGRESS/FOLLOWUP NOTE - 01/04/2005 ([facility]) SUBJECTIVE: Guan[place]ito presents for reevaluation of [...] done with electrolytes, liver panel, creatinine, CBC, CV2gutud and ultrasensitive viral load. 2. Cryptococcal meningitis. [...] MD P - Job ID: Document ID: [id number] cc: SOM Pollock, [facility] Comprehensive Care [facility], [facility], [facility] [address] [address]* documented in this encounter Plan of Treatment Upcoming Encounters Date Type Department Care Team (Late st Contact Info) Description 05/31/2024 10:00 EST Telemedicine [facility] Infectious Disease - [facility] [address] [place] [address] Lit Pina, DO [address] [place] [address], [address] [place] [address] documented as of this encounter Visit Diagnoses Not on filedocumented in this encounter Care Teams Grounds Crew Supervisor Relationship Specialty Start Date End Date Hanane Pollock NP [facility] [address] [place] [address] PCP - General 01/30/09 02/23/19 documented as of this encounter
--- OUTSIDE RECORDS SUMMARY | 2024-05-27 13:21 | XMS_ITS | Encounter Summary ---
Author Organization [facility] Address [address] [place] [address] Care Team Providers Care Manager Sales And Marketing Name Role Phone Hanane Pollock NP Primary Care Provider [phone] Encounter Details Date Type Department Care Team (Late st Contact Info) Description 06/26/2012 Orders Only [facility] Infectious Disease - [address] [address] Juli Franz MD AIDS (acquired immune deficiency syndrome) ([facility]) (Primary Dx) Social History Tobacco Use [...] Refills Last Filled Start Date End Date atazanavir (REYATAZ) 300 mg capsuleIndications: AIDS (acquired immune deficiency syndrome) ([facility]) Take 1 Cap by mouth daily. 30 Cap 3 06/26/2012 10/28/2012 ritonavir (NORVIR) 100 mg tabletIndications:A IDS (acquired immune deficiency syndrome) ([facility]) Take 1 Tab by mouth every 24 hours. 30 Tab 3 06/26/2012 10/28/2012 lamivudine (EPIVIR) 300 mg tabletIndications:A IDS (acquired immune deficiency syndrome) ([facility]) Take 1 Tab by mouth daily. 30 Tab 3 06/26/2012 10/28/2012 tenofovir (VIREAD) 300 mg tabletIndications:A IDS (acquired immune deficiency syndrome) (HCC-CMS) Take 1 [...] Telemedicine [facility] Infectious Disease - [address] [address] Lit Pina DO [address] [place] [address], [facility] [address] [place] [phone] documented as of this encounter Visit Diagnoses [...] documented as of this encounter Care Teams Manager Sales And Marketing Relationship Specialty Start Date End Date Hanane Pollock NP [facility] [address] [place] [address] PCP - General 01/30/09 02/23/19 documented as of this encounter
--- OUTSIDE RECORDS SUMMARY | 2024-05-27 13:21 | XMS_ITS | Encounter Summary ---
Author Organization [facility] Address [address] [place] [address] Care Team Providers Care Hydro Plant Technician Name Role Phone Hanane Pollock NP Primary Care Provider [phone] Reason for Visit * Reason Comments Follow-up Encounter Details Date Type Department Care Team (Latest Contact Info) Description 03/03/2013 9:45 EDT Office Visit [facility] Infectious Disease [address] [address] Juli Franz MD Acquired immunodeficiency syndrome (CMS-HCC) [...] week and was seen by Hanane at [facility] and treated with clindamycin and narcotic analgesics. [...] continue the Epivir. I called Kinosiel in [facility] and they reported that they would be [...] Info) Description 05/31/2024 10:00 EST Telemedicine [facility] Infectious Disease - [place] [address] [place], [place] [phone] Lit Pina, DO [address] [place] [address], [address] [place] [phone] documented as of this encounter Visit Diagnoses Diagnosis Acquired immunodeficiency syndrome (HCC-CMS)- Primary Human immunodeficiency virus [HIV] disease Chronic active type B viral hepatitis (HCC-CMS) Viral hepatitis B without mention of hepatic coma, chronic, without mention of hepatitis delta Chronic hepatitis C without mention of hepatic coma Tobacco dependence syndrome Tobacco use disorder documented in this encounter Care Teams Hydro Plant Technician Relationship Specialty Start Date End Date Hanane Pollock NP [facility] [address] [place] [address] PCP - General 01/30/09 02/23/19 documented as of this encounter
--- OUTSIDE RECORDS SUMMARY | 2024-05-27 13:21 | XMS_ITS | Encounter Summary ---
Author Organization [facility] Address [address] [place] [address] Care Team Providers Care Respiratory Services Manager Name Role Phone Hanane Pollock NP Primary Care Provider [phone] Encounter Details Date Type Department Care Team (Late st Contact Info) Description 05/05/2010 Orders Only [facility] Infectious Disease [address] [id number] Juli Franz MD HCV infection; Chronic active viral hepatitis B (CMS-HCC) ([facility]); Human immunodeficiency virus (HIV) disease ([facility]); Alcohol use; Encounter for long-term (current) use [...] Description 05/31/2024 10:00 EST Telemedicine [facility] Infectious Disease [address] [address] Lit Pina DO 111 [facility] [address] [place] [phone] documented as of this encounter Procedures Procedure [...] agree with the findings. Juli Franz MD IMG IR ORDERABLES Final Result documented in this encounter Visit Diagnoses Diagnosis [...] medications documented in this encounter Care Teams Respiratory Services Manager Relationship Specialty Start Date End Date Hanane Pollock NP [facility] [address] [place] [address] PCP - General 01/30/09 02/23/19 documented as of this encounter
--- OUTSIDE RECORDS SUMMARY | 2024-05-27 13:21 | XMS_ITS | Encounter Summary ---
Author Organization [facility] Address [address] [place] [address] Care Team Providers Care Defect Cutter Name Role Phone aHnane Pollock NP Primary Care Provider Reason for Visit * Reason Onset Date Comments Medications Refill 04/06/2013 Encounter Details Date Type Department Care Team (Late st Contact Info) Description 04/06/2013 Refill [facility] Infectious Disease - [facility] [address] [place] [address] Juli Franz MD Medications Refill Social History [...] 3 04/06/2013 07/21/2013 ritonavir (NORVIR) 100 mg tabletIndications:A IDS (acquired immune deficiency syndrome) (HCC-CMS) Take 1 Tab by mouth every 24 hours. 30 Tab 3 04/06/2013 07/21/2013 Raltegravir (ISENTRESS) 400 mg tabletIndications:A IDS (acquired immune deficiency syndrome) (HCC-CMS) Take 1 Tab by mouth 2 times daily. 60 Tab 3 04/06/2013 07/21/2013 lamiVUDine (EPIVIR) 300 mg tabletIndications:A IDS (acquired immune deficiency syndrome) (HCC-CMS) Take 1 Tab by mouth daily. 30 Tab 3 04/06/2013 07/21/2013 atazanavir (REYATAZ) 300 mg capsuleIndications: AIDS (acquired immune deficiency syndrome) (HCC-CMS) Take 1 Cap by mouth daily. 30 Cap 3 04/06/2013 07/21/2013 documented in this encounter Miscellaneous Notes * Telephone Encounter - Ceci Fletcher RN - 04/06/2013 1057 EDT Gu[place] is seen in [facility]. Partner Greg, states they've called and [...] Franz author) E-RX all HIV Medications to [facility] in [facility]. Seen in [facility] clinic every 4-5 months consistently. Next appt. Not scheduled in PRISM system currently. documented in this encounter Plan of Treatment Upcoming Encounters Date Type Department Care Team (Late st Contact Info) Description 05/31/2024 10:00 EST Telemedicine [facility] Infectious Disease - [address] [address] Lit Pina DO [address] [place] [address], [facility] [address] [place] [address] documented as of this encounter [...] documented as of this encounter Care Teams Defect Cutter Relationship Specialty Start Date End Date Hanane Pollock NP [facility] [address] [place] [address] PCP - General 01/30/09 02/23/19 documented as of this encounter
--- OUTSIDE RECORDS SUMMARY | 2024-05-27 13:21 | XMS_ITS | Encounter Summary ---
Author Organization [facility] Address [address] [place] [address] Care Team Providers Care Bander And Cellophaner Helper Machine Name Role Phone Hanane Pollock NP Primary Care Provider Reason for Visit * Reason Comments Follow-up Encounter Details Date Type Department Care Team (Latest Contact Info) Description 06/03/2012 9:45 EST Office Visit [facility] Infectious Disease - [address] [address] Juli Franz MD Human immunodeficiency virus (HIV) disease ([facility]); Chronic active type B viral hepatitis (CMS-HCC) [...] 06/05/2012 0838 EST Faxed lab orders to [facility]. Mailed copy of office note to [facility]. * Juli Franz MD - 06/03/2012 0940 EST [facility] FOLLOWUP NOTE DOS 06/03/2012 Last [...] [facility] Infectious Disease - [address] [address] Lit Pina, DO 111 [facility], [address] [place] [address] documented as of this encounter [...] may reflect changes made after this encounter. Calcium-Cholecalc iferol, D3, (CALCARB) 600 mg(1,500mg) -200 unit Tab Take 1 Tab by mouth daily. 07/20/2015 added in this encounter Care Teams Bander And Cellophaner Helper Machine Relationship Specialty Start Date End Date Hanane Pollock NP [facility] [address] [place] [address] PCP - General 01/30/09 02/23/19 documented as of this encounter
--- OUTSIDE RECORDS SUMMARY | 2024-05-27 13:21 | XMS_ITS | Encounter Summary ---
Author Organization [facility] Address [address] [place] [address] Care Team Providers Care Pipeline Systems Operator Name Role Phone Hanane Pollock NP Primary Care Provider [phone] Encounter Details Date Type Department Care Team (Late Contact Info) Description 08/06/2011 Documentation Visit [facility] Infectious Disease - Main [address] [id number] Ceci Fletcher, RN Social History Tobacco Use [...] was instructed to call Hanane Pollock at [facility] to make sure he has an appointment to discuss details of plan with Dr. Franz. documented in this encounter Plan of Treatment Upcoming Encounters Date Type Department Care Team (Late Contact Info) Description 05/31/2024 10:00 EST Telemedicine [facility] Infectious Disease [address] [address] Lit Pina, DO 111 [facility], [address] [place] [address] documented as of this encounter Visit Diagnoses Not on filedocumented in this encounter Care Teams Pipeline Systems Operator Relationship Specialty Start Date End Date Hanane Pollock NP [facility] [address] [place], [place] [address] PCP - General 01/30/09 02/23/19 documented as of this encounter
--- OUTSIDE RECORDS SUMMARY | 2024-05-27 13:21 | XMS_ITS | Encounter Summary ---
Author Organization [facility] Address [address] [place] [address] Care Team Providers Care Pipe Bender Name Role Phone Hanane Pollock NP Primary Care Provider [phone] Encounter Details Date Type Department Care Team (Late st Contact Info) Description 07/21/2013 Orders Only [facility] INFECTIOUS DISEASE [address] [place], [place] [address] Juli Franz MD AIDS (acquired immune deficiency syndrome) ([facility]) (Primary Dx) Social History Tobacco Use Types [...] mg tabletIndications:A IDS (acquired immune deficiency syndrome) ([facility]) Take 1 Tab by mouth daily. 30 Tab 3 07/21/2013 11/17/2013 ritonavir (NORVIR) 100 mg tabletIndications:A IDS (acquired immune deficiency syndrome) ([facility]) Take 1 Tab by mouth every 24 hours. 30 Tab 3 07/21/2013 11/17/2013 Raltegravir (ISENTRESS) 400 mg tabletIndications:A IDS (acquired immune deficiency syndrome) ([facility]) Take 1 Tab by mouth 2 times daily. 60 Tab 3 07/21/2013 11/17/2013 atazanavir (REYATAZ) 300 mg capsuleIndications: AIDS (acquired immune deficiency syndrome) (HCC-CMS) Take 1 Cap by mouth daily. 30 Cap 3 07/21/2013 11/17/2013 lamiVUDine (EPIVIR) 300 mg tabletIndications:A IDS (acquired immune deficiency syndrome) (HCC-CMS) Take 1 Tab by mouth daily. 30 Tab 3 07/21/2013 11/17/2013 documented in this encounter Plan of Treatment Upcoming Encounters Date Type Department Care Team (Late st Contact Info) Description 05/31/2024 10:00 EST Telemedicine [facility] Infectious Disease - [address] [address] Lit Pina DO [address] [place] [address], [facility] 5 [place] [phone] documented as of this encounter Visit Diagnoses [...] documented as of this encounter Care Teams Pipe Bender Relationship Specialty Start Date End Date Hanane Pollock NP [facility] [address] [place] [address] PCP - General 01/30/09 02/23/19 documented as of this encounter
--- OUTSIDE RECORDS SUMMARY | 2024-05-27 13:21 | XMS_ITS | Encounter Summary ---
Author Organization [facility] Address [address] [place] [address] Care Team Providers Care Linux Admin Name Role Phone Hanane Pollock NP Primary Care Provider [phone] Encounter Details Date Type Department Care Team (Late st Contact Info) Description 04/08/2013 Orders Only [facility] Infectious Disease - [facility] [address] [place], [place] [address] Juli Franz MD Social History Tobacco Use [...] Description 05/31/2024 10:00 EST Telemedicine [facility] Infectious Disease [address] [address] Lit Pina DO 111 [facility], [facility] 5 [place] [address] documented as of this encounter [...] GFR, Calculated, External >=60.00 >=60.00 mL/min/1 .73m2 [facility] Glucose, Serum, External 74 70 - 100 mg/dL [facility] Albumin, External 4.7 3.4 - 5.0 g/dL [facility] Total Alkaline Phosphatase, External 103 38 - 126 U/L [facility] ALT, External 59 12 - 78 U/L [facility] AST, External 26 15 - 37 U/L [facility] BUN, External 18 7 - 18 mg/dL [facility] Calculated Calcium, External Not given [facility] Calcium, External 9.1 8.5 - 10.1 mg/dL [facility] Chloride, External 104 98 - 107 mmol/L [facility] CO2, External 27.8 21.0 - 32.0 mmol/L [facility] Creatinine, External 1.2 0.8 - 1.3 mg/dL [facility] Fasting?, External Unknown [facility] Potassium, External 4.2 3.5 - 5.1 mmol/L [facility] Sodium, External 139 136 - 145 mmol/L [facility] Total Protein, External 7.5 6.4 - 8.2 g/dL [facility] Bilirubin, Total, External 2.63(A) 0.2 - 1.0 mg/dL [facility] Comment:Please see scanned r eport in PRISM for further interpretation Blood specimen (specimen) 02/26/2013 12:45 EDT Juli Franz MD CHEMISTRY & BLOOD GAS ORDERABL ES Edited [facility] * CK (02/26/2013 12:43 EDT) CK, External 172 39 - 308 U/L [facility] Blood specimen (specimen) 02/26/2013 12:43 EDT Juli Franz MD CHEMISTRY & BLOOD GAS ORDERABL ES Final Result Performing Organization Address City/[facility]/ZIP Co de Phone Number [facility] * (ABNORMAL) HEMAGRAM AND DIFFERENTIAL (02/26/2013 12:43 EDT) WBC, External 8.73 4.4 - 10.8 k/cumm [facility] RBC, External 4.81 4.50 - 6.00 m/cumm [facility] Hemoglobin, External 16.5 13.5 - 17.5 g/dL [facility] HCT, External 47.3 40.0 - 50.0 % [facility] MCV, External 98.3(A) 80 - 95 fL [facility] MCH, External 34.3(A) 27.0 - 33.0 pg [facility] MCHC, External 34.9 32.0 - 36.0 % [facility] PLT, External 204 130 - 400 x1000/uL [facility] RDW-CV, External 13.5 11.8 - 14.1 % [facility] Neutrophils, External 51.1 40 - 74 % [facility] Lymphocytes, External 36.1 19 - 44 % [facility] Monocytes, External 8.5 3.0 - 10.0 % [facility] Eosinophils, External 3.6 1 - 7.0 % [facility] Basophils, External 0.6 0.0 - 2.0 % [facility] ABS Neutrophils, External 4.47 1.2 - 6.7 k/cumm [facility] ABS Lymphs, External 3.15 1.2 - 3.4 k/cumm [facility] ABS Monocytes, External 0.74(A) 0.11 - 0.7 k/cumm [facility] ABS Eosinophils, External 0.31 0 - 0.7 k/cumm [facility] ABS Basophils, External 0.05 0.0 - 0.2 k/cumm [facility] Comment:Please see scanned r eport in PRISM for further interpretation Blood specimen (specimen) 02/26/2013 12:43 EDT Juli Franz MD PACKAGES & DNA PROBE ORDERABLE S Final Result [facility] * (ABNORMAL) LIPID PROFILE (INCLUDES CHOLESTEROL, TRIGLYCERIDES, HDL, LDL) (02/26/2013 12:43 EDT) Cholesterol, External 154 50 - 200 mg/dL [facility] Triglycerides, External 185(A) 15 - 150 mg/dL [facility] HDL, External 29(A) 40 - 60 mg/dL [facility] LDL, External 94 mg/dL [facility] Chol/HDL Ratio, External Not given [facility] Fasting?, External Unknown N [facility] Comment:Please see scanned r eport in [employer] for further interpretation Blood specimen (specimen) 02/26/2013 12:43 EDT Juli Franz MD CHEMISTRY & BLOOD GAS ORDERABL ES Final Result [facility] * PHOSPHORUS (02/26/2013 12:43 EDT) Phosphorus, External 3.6 2.5 - 4.9 mg/dL [facility] Blood specimen (specimen) 02/26/2013 12:43 EDT Juli Franz MD CHEMISTRY & BLOOD GAS ORDERABL ES Final Result [facility] documented in this encounter Visit Diagnoses Not on filedocumented in this encounter Care Teams Linux Admin Relationship Specialty Start Date End Date Hanane Pollock NP [facility] [address] [place] [address] PCP - General 01/30/09 02/23/19 documented as of this encounter
--- OUTSIDE RECORDS SUMMARY | 2024-05-27 13:21 | XMS_ITS | Encounter Summary ---
Author Organization [facility] Address [address] [place] [address] Care Team Providers Care Technical Writing Lead/Mgr Name Role Phone Hanane Pollock NP Primary Care Provider [phone] Encounter Details Date Type Department Care Team (Late st Contact Info) Description 05/23/2011 Results Only [facility] Interventional Rad Clinic - [facility] [address] [place], [place] [id number] Jeremi Simmons PA-C 111 [facility] 1 [place] [address] Social History Tobacco Use Types [...] Contact Info) Description 05/31/2024 10:00 EST Telemedicine [facility] Infectious Disease - [address] [phone] Lit Pina DO 111 [facility] 5 [place] [address] documented as of this encounter [...] ? KALEB CEDILLO ? Accession #: ? [id number] : ? 1970 (Age: 41) ??M ?Collect [...] microbiology report for further diagnostic information. ??(Dr. Palomares)/[facility] Document reviewed and electronically signed by: ? [...] were received. ? End of Report [facility] 05/23/2011 05/23/2011 12: 18 EST us Jeremi Simmons PA-C PATHOLOGY ORDERABLES Nupur rubio Result Performing Organization Address City/State/[facility] Co de Phone Number BRAD MANJARREZ [address] [place] [address] documented in this encounter Visit Diagnoses Not on filedocumented in this encounter Care Teams Technical Writing Lead/Mgr Relationship Specialty Start Date End Date Hanane Pollock NP [facility] [address] [place] [address] PCP - General 01/30/09 02/23/19 documented as of this encounter
--- OUTSIDE RECORDS SUMMARY | 2024-05-27 13:21 | XMS_ITS | Encounter Summary ---
Author Organization [facility] Address [address] [place] [address] Care Team Providers Care Branch Controller Name Role Phone Hanane Pollock NP Primary Care Provider [phone] Encounter Details Date Type Department Care Team (Late st Contact Info) Description 05/15/2010 Results Only [facility] Laboratory Services - [facility] [address] [place] [id number] Loida Miranda MD 111 [facility] 1 [place] [address] Social History Tobacco Use Types [...] Contact Info) Description 05/31/2024 10:00 EST Telemedicine [facility] Infectious Disease - [address] [phone] Lit Pina DO 111 [facility] 5 [place] [address] documented as of this encounter [...] when reading/interpreting unformatted reports. ? Name: ? KALEB CEDILLO ? Accession #: ? [id number] ? : ? 1970 (Age: 40) ??M ? Collect Date: ? 05/15/2010 ? Location: ? [facility] ? Receive Date: ? 05/15/2010 ? Provider: MICHAEL KIRKPATRICK MD ? Copy to: NEW B RAMUNDO MD ? HANANE G TANEY CIVIL RIGHTS REPRESENTATIVE ? LOIDA M SCRIVER MD ? Final [...] stain is negative for PAS positive globules. Thin Film Technician sections of this case have been reviewed [...] Gross Description: ? Received in formalin labelled Kaleb Cedillo are three lazcano-brown soft ? tissue cores ranging from 1.8 to 2.1 cm in length by 0.1 cm in diameter. ??The ?? specimen is entirely submitted in a single cassette with iron, trichrome, and ?? PAS-amylase requested. ??(Enma Patrick)/kmm ? End of Report ? [facility] 05/15/2010 05/15/2010 16: 17 EDT us Michael Kirkpatrick MD PATHOLOGY ORDERABLES Fi nal Result [facility] [address] [place] [address] documented in this encounter Visit Diagnoses Not on filedocumented in this encounter Care Teams Branch Controller Relationship Specialty Start Date End Date Hanane Pollock, [facility] [address] [place] [address] PCP - General 01/30/09 02/23/19 documented as of this encounter
--- OUTSIDE RECORDS SUMMARY | 2024-05-27 13:21 | XMS_ITS | Encounter Summary ---
Author Organization [facility] Address [address] [place] [address] Care Team Providers Care Die Try Out Worker Name Role Phone Hanane Pollock NP Primary Care Provider [phone] Encounter Details Date Type Department Care Team (Late st Contact Info) Description 02/11/2007 Before PRISM Converted Visit (Maple) [facility] - Maple conversion [address] [place] [address] Juli Franz MD Social History Tobacco Use [...] 1706 EST DIVISION OF INFECTIOUS DISEASE - [facility] PROGRESS/FOLLOWUP NOTE - 02/11/2007 PROBLEM Guanakito [...] MD -Juli Franz MD - Job ID: [id number] Doc ID: [id number] cc: MD Hanane Robles NP documented in this encounter Plan of Treatment Upcoming Encounters Date Type Department Care Team (Late st Contact Info) Description 05/31/2024 10:00 EST Telemedicine [facility] Infectious Disease - [address] [address] Lit Pina, DO [address] [place] [address], [address] [place] [address] documented as of this encounter Visit Diagnoses Not on filedocumented in this encounter Care Teams Die Try Out Worker Relationship Specialty Start Date End Date Hanane Pollock NP [facility] [address] [place] [address] PCP - General 01/30/09 02/23/19 documented as of this encounter
--- OUTSIDE RECORDS SUMMARY | 2024-05-27 13:21 | XMS_ITS | Encounter Summary ---
Author Organization [facility] Address [address] [place] [address] Care Team Providers Care Executive Director Sheltered Workshop Name Role Phone Hanane Pollock SECTIONAL BELT MOLD ASSEMBLER Primary Care Provider [phone] Encounter Details Date Type Department Care Team (Late Contact Info) Description 09/25/2012 Orders Only [facility] Infectious Disease - [facility] [address] [place], [place] [phone] Juli Franz MD Social History Tobacco Use [...] Info) Description 05/31/2024 10:00 EST Telemedicine [facility] Infectious Disease [facility] [address] [place] [phone] Lit Pina DO 111 [facility], [facility] 5 [place] [address] documented as of this encounter Visit Diagnoses Not on filedocumented in this encounter Care Teams Executive Director Sheltered Workshop Relationship Specialty Start Date End Date Hanane Pollock NP [facility] [address] [place] [address] PCP - General 01/30/09 02/23/19 documented as of this encounter
--- OUTSIDE RECORDS SUMMARY | 2024-05-27 13:21 | XMS_ITS | Encounter Summary ---
Author Organization [facility] Address [address] [place] [address] Care Team Providers Care Assistant Media Buyer Name Role Phone Hanane Pollock NP Primary Care Provider [phone] Encounter Details Date Type Department Care Team (Late st Contact Info) Description 03/11/2007 Before PRISM Converted Visit (Maple) [facility] - Maple conversion [address] [place] [address] Juli Franz MD Social History Tobacco Use [...] me in the comprehensive care clinic in [facility] on February 11, 2007. Since he was [...] on connecting him with a therapistin the [facility] area. In addition, we are going to [...] March and followup with me in the [facility] clinic in early April. 4. Chronic hepatitis [...] Franz MD - LUIS ARMANDO Job ID: [id number] Doc ID: [id number] cc: [facility] Hanane Pollock NP documented in this encounter Plan of Treatment Upcoming Encounters Date Type Department Care Team (Late st Contact Info) Description 05/31/2024 10:00 EST Telemedicine [facility] Infectious Disease - [address] [phone] Lit Pina, DO 111 [facility] 5 [place] [phone] documented as of this encounter Visit Diagnoses Not on filedocumented in this encounter Care Teams Assistant Media Buyer Relationship Specialty Start Date End Date Hanane Pollock NP [facility] [address] [place] [address] PCP - General 01/30/09 02/23/19 documented as of this encounter
--- OUTSIDE RECORDS SUMMARY | 2024-05-27 13:21 | XMS_ITS | Encounter Summary ---
Author Organization [facility] Address [address] [place] [address] Care Team Providers Care Waiter/Waitress Captain Name Role Phone Hanane Pollock NP Primary Care Provider [phone] Reason for Visit * Reason Onset Date Comments Results 08/05/2011 Encounter Details Date Type Department Care Team (Late st Contact Info) Description 08/05/2011 Telephone [facility] Infectious Disease - [address] [address] Juli Franz MD Results Social History Tobacco [...] other) have heard results from lung biopsy. Pauline nearly 2 months ago in [facility]. Reassured Fernando that the message will be passed on. * Telephone Encounter - HernandezJessicaLavonne - 08/05/2011 1528 EST Fernando, partner, stated Guanakito sees Dr Franz in [place] [facility]. He does not want to call [facility] as he wants to speak with Dr Franz regarding results of lung biopsy. He can be reached at [phone] documented in this encounter Plan of Treatment Upcoming Encounters Date Type Department Care Team (Late st Contact Info) Description 05/31/2024 10:00 EST Telemedicine [facility] Infectious Disease - [address] [address] Lit Pina, DO 111 [facility] 5 [place] [address] documented as of this encounter Visit Diagnoses Not on filedocumented in this encounter Care Teams Waiter/Waitress Captain Relationship Specialty Start Date End Date Hanane Pollock NP [facility] [address] [place] [address] PCP - General 01/30/09 02/23/19 documented as of this encounter
--- OUTSIDE RECORDS SUMMARY | 2024-05-27 13:21 | XMS_ITS | Encounter Summary ---
Author Organization [facility] Address [address] [place] [address] Care Team Providers Care Surgical Device Sales Representative Name Role Phone Hanane Pollock NP Primary Care Provider [phone] Encounter Details Date Type Department Care Team (Late st Contact Info) Description 02/19/2006 Before PRISM Converted Visit (Maple) [facility] - Maple conversion [address] [place] [address] Juli Franz MD Social History Tobacco Use [...] OF INFECTIOUS DISEASE PROGRESS/FOLLOWUP NOTE - 02/19/2006 [facility] SUBJECTIVE: Guanakito presents for reevaluation of [...] Juli Franz MD P - Job ID: [id number] Document ID: [id number] cc: Hanane Pollock NP documented in this encounter Plan of Treatment Upcoming Encounters Date Type Department Care Team (Late st Contact Info) Description 05/31/2024 10:00 EST Telemedicine [facility] Infectious Disease - [address] [address] Lit Pina, DO 111 [facility], [facility] 5 [place] [address] documented as of this encounter Visit Diagnoses Not on filedocumented in this encounter Care Teams Surgical Device Sales Representative Relationship Specialty Start Date End Date Hanane Pollock NP [facility] [address] [place], [place] [address] PCP - General 01/30/09 02/23/19 documented as of this encounter
--- OUTSIDE RECORDS SUMMARY | 2024-05-27 13:21 | XMS_ITS | Encounter Summary ---
Author Organization [facility] Address [address] [place] [address] Care Team Providers Care Registered Radiation Therapist Name Role Phone Hanane Pollock NP Primary Care Provider [phone] Reason for Visit * Reason Onset Date Comments Medications Refill 11/20/2010 Encounter Details Date Type Department Care Team (Late st Contact Info) Description 11/20/2010 Telephone [facility] Infectious Disease - [facility] [address] [place] [address] Juli Franz MD Medications Refill Social History Tobacco Use Types Packs/Day Years Used Date Smoking Tobacco: Never Assessed Sex and Gender Information Value Date Recorded Sex Assigned at Not on file Legal Sex Male 18:27 EST Gender Identity Not on file Sexual Orientation Not on file documented as of this encounter Miscellaneous Notes * Telephone Encounter - Ceci Fletcher RN - 11/21/2010 7221 EDT Guanakito fell on down some stairs [...] Percocet. Guanakito can be reached at home [phone]. Will consult Dr. Franz * Telephone Encounter - Lavonne Ng - 11/20/2010 1542 EDT Kory(Fernando), partner, stated Guanakito sees Dr Franz in [facility]. Stated Hanane Pollock is out today. Statedfern fell on stairs last week and went to ER. Was given about 6 pain pills and would like a refill. Believes he was given Hydrocodone. Guanakito can be reached at [phone]. documented in this encounter Plan of Treatment Upcoming Encounters Date Type Department Care Team (Late st Contact Info) Description 05/31/2024 10:00 EST Telemedicine [facility] Infectious Disease - [address] [phone] Lit Pina, DO [address] [place] [address], [address] [place] [address] documented as of this encounter Visit Diagnoses Not on filedocumented in this encounter Care Teams Registered Radiation Therapist Relationship Specialty Start Date End Date Hanane Pollock BIOMETRICS EXPERIMENTALIST [facility] [address] [place], [place] [address] PCP - General 01/30/09 02/23/19 documented as of this encounter
--- OUTSIDE RECORDS SUMMARY | 2024-05-27 13:21 | XMS_ITS | Encounter Summary ---
Author Organization [facility] Address [address] [place] [address] Care Team Providers Care Nnps Name Role Phone Hanane Pollock NP Primary Care Provider [phone] Reason for Visit * Reason Comments HIV Positive/AIDS Encounter Details Date Type Department Care Team (Late st Contact Info) Description 01/29/2012 10:30 EDT Office Visit [facility] Infectious Disease [address] [address] Juli Franz MD AIDS (acquired immune deficiency [...] to Hanane Pollock. Faxed lab orders to [facility]. * Juli Franz MD - 01/29/2012 1038 EDT [facility] FOLLOWUP NOTE DOS:01/29/2012 Last seen: 10/02/2011 [...] blood work and a followup with myself int comprehensive care clinic in about 4 months. [...] immunization. He saw Hanane last week at [facility] and his BP was nl. He has not had HTN. Will follow BP for now. 8. ? Allergic reaction to insect bie 9. Minor ocular complaints - will see ophtho in 2 Weeks. documented in this encounter Plan of Treatment Upcoming Encounters Date Type Department Care Team (Late st Contact Info) Description 05/31/2024 10:00 EST Telemedicine [facility] Infectious Disease - [address] [phone] Lit Pina, DO [address] [place] [address], [address] [place] [phone] documented as of this encounter Visit Diagnoses Diagnosis AIDS (acquired immune deficiency syndrome) (HCC-CMS) Human immunodeficiency virus [HIV] disease Chronic active viral hepatitis B (HCC-CMS) Viral hepatitis B without mention of hepatic coma, chronic, without mention of hepatitis delta Chronic hepatitis C without mention of hepatic coma documented in this encounter Care Teams Nnps Relationship Specialty Start Date End Date Hanane Pollock NP [facility] [address] [place], [place] [phone] PCP - General 01/30/09 02/23/19 documented as of this encounter
--- OUTSIDE RECORDS SUMMARY | 2024-05-27 13:21 | XMS_ITS | Encounter Summary ---
Author Organization [facility] Address [address] [place] [address] Care Team Providers Care Compliance Review Specialist Name Role Phone Hanane Pollock NP Primary Care Provider [phone] Encounter Details Date Type Department Care Team (Late st Contact Info) Description 05/05/2010 Orders Only [facility] Infectious Disease - [facility] [address] [place], [place] [address] Juli Franz MD Chronic hepatitis C without [...] Contact Info) Description 05/31/2024 10:00 EST Telemedicine [facility] Infectious Disease [address] [address] Lit Pina DO 111 [facility], [address] [place] [address] documented as of this encounter Visit Diagnoses Diagnosis Chronic hepatitis C without mention of hepatic coma AIDS (acquired immune deficiency syndrome) (HCC-CMS) Human immunodeficiency virus [HIV] disease Chronic active viral hepatitis B (HCC-CMS) Viral hepatitis B without mention of hepatic coma, chronic, without mention of hepatitis delta documented in this encounter Care Teams Compliance Review Specialist Relationship Specialty Start Date End Date Hanane Pollock NP [facility] [address] [place] [address] PCP - General 01/30/09 02/23/19 documented as of this encounter
--- OUTSIDE RECORDS SUMMARY | 2024-05-27 13:21 | XMS_ITS | Encounter Summary ---
Author Organization [facility] Address [address] [place] [address] Care Team Providers Care Enterprise Data Architect Name Role Phone Hanane Pollock NP Primary Care Provider [phone] Encounter Details Date Type Department Care Team (Late Contact Info) Description 03/19/2013 Orders Only [facility] Infectious Disease - [facility] [address] [place], [place] [address] Juli Franz MD Social History Tobacco Use [...] Description 05/31/2024 10:00 EST Telemedicine [facility] Infectious Disease [address] [phone] Lit Pina DO 111 [facility], [facility] 5 [place] [address] documented as of this encounter Procedures Procedure Name Priority Date/Time Associated Diagnosis Comments HIV 1 RNA QUANTITATION Routine 02/26/2013 12:43 EDT documented in this encounter Results * (ABNORMAL) HIV 1 RNA QUANTITATION (02/26/2013 12:43 EDT) HIV1 RNA, External 178 Undetected copies/mL [facility] Comment:Please see scanned r eport in PRISM for further interpretation Blood specimen (specimen) 02/26/2013 12:43 EDT us Juli Franz MD CHEMISTRY & BLOOD GAS ORDERABL ES Final Result [facility] documented in this encounter Visit Diagnoses Not on filedocumented in this encounter Care Teams Enterprise Data Architect Relationship Specialty Start Date End Date Hanane Pollock, [facility] [address] [place] [address] PCP - General 01/30/09 02/23/19 documented as of this encounter
--- OUTSIDE RECORDS SUMMARY | 2024-05-27 13:21 | XMS_ITS | Encounter Summary ---
Author Organization [facility] Address [address] [place] [address] Care Team Providers Care Tension Machine Operator Name Role Phone Hanane Pollock NP Primary Care Provider [phone] Encounter Details Date Type Department Care Team (Late st Contact Info) Description 05/18/2010 Orders Only [facility] Infectious Disease [facility] [address] [place], [place] [address] Juli Franz MD Otitis externa, chronic; AIDS (acquired immune deficiency syndrome) ([facility]) Social History Tobacco Use Types Packs/Day Years Used Date Smoking Tobacco: Never Assessed Sex and Gender Information Value Date Recorded Sex Assigned at Not on file Legal Sex Male 18:27 EST Gender Identity Not on file Sexual Orientation Not on file documented as of this encounter Ordered Prescriptions Prescription Sig Dispense Quantity Refills Last Filled Start Date End Date neomycin-polymyxin- hydrocortisone (CORTISPORIN) otic solutionIndications :Otitis externa, chronic Place 3 Drops in ear(s) 4 times daily for 7 days. 1 Bottle 0 05/18/2010 05/25/2010 documented in this encounter Plan of Treatment Upcoming Encounters Date Type Department Care Team (Late st Contact Info) Description 05/31/2024 10:00 EST Telemedicine [facility] Infectious Disease [address] [address] Lit Pina, DO 111 [facility] 5 [place] [phone] documented as of this encounter Visit Diagnoses Diagnosis Otitis externa, chronic Other chronic otitis externa AIDS (acquired immune deficiency syndrome) ([facility]) Human immunodeficiency virus [HIV] disease documented in this encounter Care Teams Tension Machine Operator Relationship Specialty Start Date End Date Hanane Pollock NP [facility] [address] [place] [address] PCP - General 01/30/09 02/23/19 documented as of this encounter
--- OUTSIDE RECORDS SUMMARY | 2024-05-27 13:21 | XMS_ITS | Encounter Summary ---
Author Organization [facility] Address [address] [place] [address] Care Team Providers Care Lining Folder Name Role Phone Hanane Pollock NP Primary Care Provider [phone] Encounter Details Date Type Department Care Team (Late st Contact Info) Description 09/30/2008 Before PRISM Converted Visit (Maple) [facility] - Maple conversion [address] [place] [address] Juli Franz MD Social History Tobacco Use [...] 0245 EST DIVISION OF INFECTIOUS DISEASE - [facility] PROGRESS/FOLLOWUP NOTE - 09/30/2008 DONNELL Calabrese presents for reevaluation of his HIV disease and his hepatitis B and C. He was last seen by me in the comprehensive care clinic on May 18, 2008. Since he was last seen, it sounds like he has done well. He has had no acute illnesses. He has followed up with the community arts officer here in [facility]. I have corresponded with the community arts officer on more than one occasion. There was [...] Juli Franz MD - DD Job ID: [id number] Doc ID: [id number] cc: Hanane Pollock NP [facility]* documented in this encounter Plan of Treatment Upcoming Encounters Date Type Department Care Team (Late st Contact Info) Description 05/31/2024 10:00 EST Telemedicine [facility] Infectious Disease - [facility] [address] [place] [address] Lit Pina, DO 111 [facility], [address] [place] [phone] documented as of this encounter Visit Diagnoses Not on filedocumented in this encounter Care Teams Lining Folder Relationship Specialty Start Date End Date Hanane Pollock NP [facility] [address] [place] [address] PCP - General 01/30/09 02/23/19 documented as of this encounter
--- OUTSIDE RECORDS SUMMARY | 2024-05-27 13:21 | XMS_ITS | Encounter Summary ---
Author Organization [facility] Address [address] [place] [address] Care Team Providers Care Washer And Crusher Tender Name Role Phone Hanane Pollock NP Primary Care Provider Encounter Details Date Type Department Care Team (Late st Contact Info) Description 01/27/2008 Before PRISM Converted Visit (Maple) [facility] - Maple conversion [address] [place] [address] Juli Franz MD Social History Tobacco Use [...] 1657 EST DIVISION OF INFECTIOUS DISEASE - [facility] PROGRESS/FOLLOWUP NOTE - 01/27/2008 DONNELL Calabrese [...] problems with headache. He has seen the firer helper recently. His visionis stable. He has not [...] well. His viral load remains undetectable. His [id number] is stable and he has really not [...] Juli Franz MD - DD Job ID: [id number] Doc ID: [id number] cc: Hanane Pollock NP documented in this encounter Plan of Treatment Upcoming Encounters Date Type Department Care Team (Late st Contact Info) Description 05/31/2024 10:00 EST Telemedicine [facility] Infectious Disease - [address] [place] [address] Lit Pina, DO 111 [facility], [address] [place] [address] documented as of this encounter Visit Diagnoses Not on filedocumented in this encounter Care Teams Washer And Crusher Tender Relationship Specialty Start Date End Date Hanane Pollock [employer]IEF [facility] [address] [place] [address] PCP - General 01/30/09 02/23/19 documented as of this encounter
--- OUTSIDE RECORDS SUMMARY | 2024-05-27 13:21 | XMS_ITS | Encounter Summary ---
Author Organization [facility] Address [address] [place] [address] Care Team Providers Care Trucker Hand Name Role Phone Hanane Pollock NP Primary Care Provider [phone] Reason for Visit * Reason Comments Follow-up Encounter Details Date Type Department Care Team (Latest Contact Info) Description 05/08/2011 Documentation Visit [facility] Infectious Disease - [facility] [address] [place] [address] Juli Franz MD AIDS (acquired immune deficiency [...] to Hanane Pollock. Faxed lab orders to [facility]. * Juli Franz MD - 05/08/2011 1822 EDT [facility] PROGRESS/FOLLOWUP NOTE - 05/08/2011 Last seen: [...] the disk of the films sent to [facility] and had them loaded in our system [...] reviewed in person with the radiologist at [facility]. Pt had rib films in 11/2010 which [...] Contact Info) Description 05/31/2024 10:00 EST Telemedicine [facility] Infectious Disease - [address] [address] Lit Pina, DO [address] [place] [address], [address] [place] [address] documented as of this encounter [...] resulting. Juli Franz MD IMG CT ORDERABLES Final Result documented in this encounter [...] field documented in this encounter Care Teams Trucker Hand Relationship Specialty Start Date End Date Hanane Pollock NP [facility] [address] [place] [address] PCP - General 01/30/09 02/23/19 documented as of this encounter
--- OUTSIDE RECORDS SUMMARY | 2024-05-27 13:21 | XMS_ITS | Encounter Summary ---
Author Organization [facility] Address [address] [place] [address] Care Team Providers Care Rug Weaver Name Role Phone Hanane Pollock NP Primary Care Provider [phone] Reason for Visit * Reason Comments HIV Positive/AIDS Encounter Details Date Type Department Care Team (Late st Contact Info) Description 10/02/2011 10:00 EDT Office Visit [facility] Infectious Disease [address] [address] Juli Franz MD AIDS (acquired immune deficiency [...] Date atazanavir (REYATAZ) 300 mg capsule Take 1 [...] Faxed note and labs to Phill at [facility] 10/02 * Juli Franz MD - 10/02/2011 1040 EDT [facility] FOLLOWUP NOTE DOS:10/02/2011 Last seen: 05/08/2011 SUBJECTIVE: Guanakito presents for reevaluation of his HIV disease and his chronic hepatitis. Since he was last seen he has had a couple of mild URIs. He did see Hanane Rossi recently at [place] because he feels that his abdominal girth [...] immunization. He saw Hanane last week at [place] and his BP was nl. He has not had HTN. Will follow BP for now. documented in this encounter Plan of Treatment Upcoming Encounters Date Type Department Care Team (Late st Contact Info) Description 05/31/2024 10:00 EST Telemedicine [facility] Infectious Disease - [address] [phone] Lit Pina, DO [address] [place] [address], [address] [place] [address] documented as of this encounter [...] may reflect changes made after this encounter. GLUC HOWARD/CHONDRO HOWARD A/VIT C/MN (GLUCOSAMINE CHONDROITIN MAXSTR ORAL) Take 2 Tabs by mouth daily. 06/28/2015 Multivitamins with Minerals Tab Take 1 Tab by mouth daily. 07/20/2015 ritonavir (NORVIR) 100 mg tablet Take 100 mg by mouth every 24 hours. 10/02/2011 added in this encounter Care Teams Rug Weaver Relationship Specialty Start Date End Date Hanane Pollock NP [facility] [address] [place], [place] [address] PCP - General 01/30/09 02/23/19 documented as of this encounter
--- OUTSIDE RECORDS SUMMARY | 2024-05-27 13:21 | XMS_ITS | Encounter Summary ---
Author Organization [facility] Address [address] [place] [address] Care Team Providers Care Delivery Associate Name Role Phone Hanane Pollock NP Primary Care Provider [phone] Encounter Details Date Type Department Care Team (Late st Contact Info) Description 04/22/2007 Before PRISM Converted Visit (Maple) [facility] - Maple conversion [address] [place] [address] Juli Franz MD Social History Tobacco Use [...] 1703 EST DIVISION OF INFECTIOUS DISEASE - [facility] PROGRESS/FOLLOWUP NOTE - 04/22/2007 DONNELL Calabrese presents [...] them every day. He did see the vp information technology and they did do some steroid injections [...] - Juli Franz MD - Job ID: [id number] Doc ID: [id number] cc: Hanane Pollock NP documented in this encounter Plan of Treatment Upcoming Encounters Date Type Department Care Team (Justin jo Contact Info) Description 05/31/2024 10:00 EST Telemedicine [facility] Infectious Disease - [place] [address] [place] [address] Lit Pina, DO 111 [facility], [facility] 5 [place] [phone] documented as of this encounter Visit Diagnoses Not on filedocumented in this encounter Care Teams Delivery Associate Relationship Specialty Start Date End Date Hanane Pollock NP [facility] [address] [place] [address] PCP - General 01/30/09 02/23/19 documented as of this encounter
--- OUTSIDE RECORDS SUMMARY | 2024-05-27 13:21 | XMS_ITS | Encounter Summary ---
Author Organization [facility] Address [address] [place] [address] Care Team Providers Care Product Builder Name Role Phone Hanane Pollock STERILIZATION TECH Primary Care Provider [phone] Encounter Details Date Type Department Care Team (Late Contact Info) Description 03/22/2013 Orders Only [facility] Infectious Disease - [facility] [address] [place], [place] [id number] Juli Franz MD Social History Tobacco Use [...] Contact Info) Description 05/31/2024 10:00 EST Telemedicine [facility] Infectious Disease [facility] [address] [place] [phone] Lit Pina DO 111 [facility], [facility] 5 [place] [address] documented as of this encounter Visit Diagnoses Not on filedocumented in this encounter Care Teams Product Builder Relationship Specialty Start Date End Date Hanane Pollock NP [facility] [address] [place] [address] PCP - General 01/30/09 02/23/19 documented as of this encounter
--- OUTSIDE RECORDS SUMMARY | 2024-05-27 13:21 | XMS_ITS | Encounter Summary ---
Author Organization [facility] Address [address] [place] [address] Care Team Providers Care Director Of Customer Acquisition Name Role Phone Hanane Pollock DRAWING TENDER Primary Care Provider [phone] Reason for Visit * Reason Onset Date Comments Medications Refill 06/23/2012 Encounter Details Date Type Department Care Team (Late st Contact Info) Description 06/23/2012 Refill [facility] Infectious Disease - [facility] [address] [place] [address] New Franz MD Medications Refill Social History [...] EST Notified partner Fernando that Jeane from [facility] notified [facility] that Guanakito could have 1 month of refills and Hanane Pollock will order more refills. Fernando stated he sees Dr. Franz tommanuela and will ask for more refills. Also mentioned when the pharmacy gives the last refill, if they sent the office a fax for more fills, could be smoother with no lapse in taking medication. NEW MIX RN * Telephone Encounter - Beena Wayne - 06/23/2012 1509 EST Partner Fernando calling saying he cannto reach Hanane Pollock, and that Guanakito needs refills on all of his medication . He did not have a complete listing of what that would be. Uses [facility]. Fernando would like a call back when this has been called in at [phone]. Fernando states he needs thiscalled in today. documented in this encounter Plan of Treatment Upcoming Encounters Date Type Department Care Team (Late st Contact Info) Description 05/31/2024 10:00 EST Telemedicine [facility] Infectious Disease - [address] [phone] Lit Pina, DO 111 [facility], [address] [place] [address] documented as of this encounter Visit Diagnoses Not on filedocumented in this encounter Care Teams Director Of Customer Acquisition Relationship Specialty Start Date End Date Hanane Pollock, DRAWING TENDER [facility] [address] [place] [address] PCP - General 01/30/09 02/23/19 documented as of this encounter
--- OUTSIDE RECORDS SUMMARY | 2024-05-27 13:21 | XMS_ITS | Encounter Summary ---
Author Organization [facility] Address [address] [place] [address] Care Team Providers Care Silverware Buffing Machine Operator Name Role Phone Hanane Pollock NP Primary Care Provider [phone] Encounter Details Date Type Department Care Team (Late st Contact Info) Description 02/12/2012 Orders Only [facility] Infectious Disease - [address] [address] Juli Franz MD AIDS (acquired immune deficiency syndrome) ([facility]) (Primary Dx) Social History Tobacco Use Types [...] mg capsuleIndications: AIDS (acquired immune deficiency syndrome) ([facility]) Take 1 Cap by mouth daily. 30 Cap 3 02/12/2012 06/26/2012 ritonavir (NORVIR) 100 mg tabletIndications:A IDS (acquired immune deficiency syndrome) ([facility]) Take 1 Tab by mouth every 24 hours. 30 Tab 3 02/12/2012 06/26/2012 lamivudine (EPIVIR) 300 mg tabletIndications:A IDS (acquired immune deficiency syndrome) ([facility]) Take 1 Tab by mouth daily. 30 Tab 3 02/12/2012 06/26/2012 tenofovir (VIREAD) 300 mg tabletIndications:A IDS (acquired immune deficiency syndrome) ([facility]) Take 1 Tab by mouth daily. 30 Tab 3 02/12/2012 06/26/2012 Raltegravir (ISENTRESS) 400 mg TabIndications:AIDS (acquired immune deficiency syndrome) ([facility]) Take 1 Tab by mouth 2 times daily. 60 Tab 3 02/12/2012 06/26/2012 documented in this encounter Plan of Treatment Upcoming Encounters Date Type Department Care Team (Late st Contact Info) Description 05/31/2024 10:00 EST Telemedicine [facility] Infectious Disease - [place] [address] [place], [place] [address] Lit Pina, DO [address] [place] [address], [facility] 5 [place] [phone] documented as of this encounter Visit Diagnoses Diagnosis AIDS (acquired immune deficiency syndrome) ([facility])- Primary Human immunodeficiency virus [HIV] disease documented [...] documented as of this encounter Care Teams Silverware Buffing Machine Operator Relationship Specialty Start Date End Date Hanane Pollock NP [facility] [address] [place] [address] PCP - General 01/30/09 02/23/19 documented as of this encounter
--- OUTSIDE RECORDS SUMMARY | 2024-05-27 13:21 | XMS_ITS | Encounter Summary ---
Author Organization [facility] Address [address] [place] [address] Care Team Providers Care Arm Rest Builder Name Role Phone Unavailable Primary Care Provider Unavailabl e Encounter Details Date Type Department Care Team (Late st Contact Info) Description 09/12/2008 Before PRISM Converted Visit (Maple) [facility] - Maple conversion [address] [place] [address] Sarkis Haney MD [address] [place] [address] Social History Tobacco Use Types Packs/Day Years [...] Contact Info) Description 05/31/2024 10:00 EST Telemedicine [facility] Infectious Disease - [address] [address] Lit Pina DO 111 [facility], [facility] 5 [place] [phone] documented as of this encounter Procedures Procedure [...] ? SNIDE, KALEB ? Accession #: ? [id number] ? : ? 1970 (Age: 38) ??M ? Collect Date: ? 09/12/2008 ? Location: ? [facility] ? Receive Date: ? 09/12/2008 ? Provider: SARKIS HANEY MD ? Copy to: SAMI G TANEY [employer] ? NEW B RAMUNDO MD ? Final [...] bleeding ? Gross Description: ? Received in Hollande's fixative labelled Snide and sigmoid 30 cm [...] BRAD MANJARREZ 09/12/2008 09/12/2008 9:0 7 EST us Sarkis Haney MD PATHOLOGY ORDERABLES Final Result BRAD MANJARREZ [address] [place] [address] documented in this encounter Visit Diagnoses Not on filedocumented in this encounter
--- OUTSIDE RECORDS SUMMARY | 2024-05-27 13:21 | XMS_ITS | Encounter Summary ---
Author Organization [facility] Address [address] [place] [address] Care Team Providers Care Economic History Teacher Name Role Phone Hanane Pollock NP Primary Care Provider [phone] Encounter Details Date Type Department Care Team (Late st Contact Info) Description 09/24/2012 Orders Only [facility] Infectious Disease - [facility] [address] [place], [place] [address] Juli Franz MD Social History Tobacco Use [...] Info) Description 05/31/2024 10:00 EST Telemedicine [facility] Infectious Disease [address] [address] Lit Pina DO 111 [facility], [facility] [address] [place] [address] documented as of this encounter Procedures Procedure Name Priority Date/Time Associated Diagnosis Comments COMPLETE BLOOD COUNT AND DIFFERENTIAL Routine 09/21/2012 9:18 EDT PHOSPHORUS Routine 09/21/2012 9:18 EDT COMPREHENSIVE METABOLIC PANEL (CMP) Routine 09/21/2012 9:18 EDT documented in this encounter Results * (ABNORMAL) COMPREHENSIVE METABOLIC PANEL (CMP) (09/21/2012 9:18 EDT) GFR, Calculated, External >=60.00 mL/min/1 .73m2 [facility] Glucose, Serum, External 89 70 - 110 mg/dL [facility] Albumin, External 4.2 3.4 - 5.0 g/dL [facility] Total Alkaline Phosphatase, External 97 38 - 126 U/L [facility] ALT, External 48 12 - 78 U/L [facility] Comment:Please see scanned r eport in PRISM for futher interpretation AST, External 18 15 - 37 U/L [facility] BUN, External 15 7 - 18 mg/dL [facility] Calculated Calcium, External Not given [facility] Calcium, External 8.8 8.5 - 10.1 mg/dL [facility] Chloride, External 104 98 - 107 mmol/L [facility] CO2, External 26.2 21.0 - 32.0 mmol/L [facility] Creatinine, External 1.0 0.8 - 1.3 mg/dL [facility] Fasting?, External Unknown [facility] Potassium, External 4.3 3.5 - 5.1 mmol/L [facility] Sodium, External 141 136 - 145 mmol/L [facility] Total Protein, External 7.2 6.4 - 8.2 g/dL [facility] Bilirubin, Total, External 1.62(A) 0.2 - 1.0 mg/dL [facility] Blood specimen (specimen) 09/21/2012 9:18 EDT us Juli Franz MD CHEMISTRY & BLOOD GAS ORDERABL ES Final Result [facility] * (ABNORMAL) HEMAGRAM AND DIFFERENTIAL (09/21/2012 9:18 EDT) WBC, External 9.02 4.4 - 10.8 k/cumm [facility] Comment:Please see nathan rodríguez epo in PRISM for futher test and interpretation RBC, External 4.95 4.50 - 6.00 m/cumm [facility] Hemoglobin, External 16.9 13.5 - 17.5 gm/dL [facility] HCT, External 48.4 40.0 - 50.0 % [facility] MCV, External 97.8(A) 80 - 95 cu/jose roberto [facility] MCH, External 34.1(A) 27.0 - 33.0 pg [facility] MCHC, External 34.9 32.0 - 36.0 % [facility] PLT, External 207 130 - 400 x1000/uL [facility] RDW-CV, External 13.7 11.5 - 14.5 % [facility] Neutrophils, External 51.6 40 - 74 % [facility] Lymphocytes, External 36.1 19 - 44 % [facility] Monocytes, External 7.0 3.0 - 10.0 % [facility] Eosinophils, External 4.1 1 - 7.0 % [facility] Basophils, External 1.0 0.0 - 2 % [facility] ABS Neutrophils, External 4.65 1.2 - 6.7 k/cumm [facility] ABS Lymphs, External 3.26 1.2 - 3.4 k/cumm [facility] ABS Monocytes, External 0.63 0.11 - 0.7 k/cumm [facility] ABS Eosinophils, External 0.37 0 - 0.7 k/cumm [facility] ABS Basophils, External 0.09 0.0 - 0.2 k/cumm [facility] Blood specimen (specimen) 09/21/2012 9:18 EDT Juli Franz MD PACKAGES & DNA PROBE ORDERABLE S Final Result [facility] * PHOSPHORUS (09/21/2012 9:18 EDT) Phosphorus, External 2.9 2.5 - 4.9 mg/dL [facility] Blood specimen (specimen) 09/21/2012 9:18 EDT us Juli Franz MD CHEMISTRY & BLOOD GAS ORDERABL ES Final Result Performing Organization Address [facility] Co de Phone Number [facility] documented in this encounter Visit Diagnoses Not on filedocumented in this encounter Care Teams Economic History Teacher Relationship Specialty Start Date End Date Hanane Pollock, MANAGER SALES [facility] [address] [place] [address] PCP - General 01/30/09 02/23/19 documented as of this encounter
--- OUTSIDE RECORDS SUMMARY | 2024-05-27 13:21 | XMS_ITS | Encounter Summary ---
Author Organization [facility] Address [address] [place] [address] Care Team Providers Care Test Eng Name Role Phone Hanane Pollock NP Primary Care Provider [phone] Reason for Visit * Reason Onset Date Comments Other 05/18/2010 medication Encounter Details Date Type Department Care Team (Late Contact Info) Description 05/18/2010 Telephone [facility] Infectious Disease - [address] [address] Juli Franz MD Other (medication) Social History [...] ear was suppose to be called into [facility] pharmacy in [facility] a week ago. Stated they do not have script as of yet. Their phone is [phone]. Pt's phone is [phone]. documented in this encounter Plan of Treatment Upcoming Encounters Date Type Department Care Team (Late st Contact Info) Description 05/31/2024 10:00 EST Telemedicine [facility] Infectious Disease - [facility] [address] [place] [address] Lit Pina, DO 111 [facility], Level 5 [place] [address] documented as of this encounter Visit Diagnoses Not on filedocumented in this encounter Care Teams Test Eng Relationship Specialty Start Date End Date Hanane Pollock NP [facility] [address] [place] [address] PCP - General 01/30/09 02/23/19 documented as of this encounter
--- OUTSIDE RECORDS SUMMARY | 2024-05-27 13:21 | XMS_ITS | Encounter Summary ---
Author Organization [facility] Address [address] [place] [address] Care Team Providers Care Cured Meat Packing Supervisor Name Role Phone Hanane Pollock NP Primary Care Provider [phone] Encounter Details Date Type Department Care Team (Late st Contact Info) Description 09/10/2006 Before PRISM Converted Visit (Maple) [facility] - Maple conversion [address] [place] [address] Juli Franz MD Social History Tobacco Use [...] 1701 EST DIVISION OF INFECTIOUS DISEASE - [facility] PROGRESS/FOLLOWUP NOTE - 10/01/2006 DONNELL Calabrese presents [...] since the [place] I think that he should be reimmunized, but we will also check therecords at [facility] to ensure that he has not had a tetanus shot there. They looked in the medical record there and it appears that he has no evidence of that. We can also check the records at [facility], although we do have copiesof most of [...] Franz MD A - SK Job ID: [id number] Document ID: [id number] cc: Hanane Pollock NP cc: Hanane Pollock NP * Juli Franz MD - 09/19/2009 1701 EST DIVISION OF INFECTIOUS DISEASE - [facility] PROGRESS/FOLLOWUP NOTE - 09/10/2006 [facility] DONNELL Calabrese presents for reevaluation of [...] of his skin he does have some [id number] colored papules on the flexor aspect of [...] the percent is somewhat low. I think regineld consider stopping his Dapsone. We did not [...] Franz MD P - DD Job ID: [id number] Document ID: [id number] cc: [facility] documented in this encounter Plan of Treatment Upcoming Encounters Date Type Department Care Team (Late st Contact Info) Description 05/31/2024 10:00 EST Telemedicine [facility] Infectious Disease - [facility] [address] [place], [place] [address] Lit Pina, DO 111 [facility], [facility] 5 [place] [phone] documented as of this encounter Visit Diagnoses Not on filedocumented in this encounter Care Teams Cured Meat Packing Supervisor Relationship Specialty Start Date End Date Hanane Pollock NP [facility] [address] [place] [address] PCP - General 01/30/09 02/23/19 documented as of this encounter
--- OUTSIDE RECORDS SUMMARY | 2024-05-27 13:21 | XMS_ITS | Encounter Summary ---
Author Organization [facility] Address [address] [place] [address] Care Team Providers Care Bridge Opener Name Role Phone Hanane Pollock NP Primary Care Provider [phone] Encounter Details Date Type Department Care Team (Late st Contact Info) Description 01/09/2007 Before PRISM Converted Visit (Maple) [facility] - Maple conversion [address] [place] [address] Juli Franz MD Social History Tobacco Use [...] He did not follow up with the building code administrator yet and he denies any new neuromuscular [...] Juli Franz MD - DD Job ID: [id number] Doc ID: [id number] cc: [facility] - dd Job ID: [id number] Doc ID: [id number] cc: [facility] documented in this encounter Plan of Treatment Upcoming Encounters Date Type Department Care Team (Late st Contact Info) Description 05/31/2024 10:00 EST Telemedicine [facility] Infectious Disease - [address] [id number] Lit Pina, DO 111 [facility], [address] [place] [address] documented as of this encounter Visit Diagnoses Not on filedocumented in this encounter Care Teams Bridge Opener Relationship Specialty Start Date End Date Hanane Pollock NP [facility] [address] [place], [place] [address] PCP - General 01/30/09 02/23/19 documented as of this encounter
--- OUTSIDE RECORDS SUMMARY | 2024-05-27 13:21 | XMS_ITS | Encounter Summary ---
Author Organization [facility] Address [address] [place] [address] Care Team Providers Care Transition Assistant Name Role Phone Hanane Pollock NP Primary Care Provider [phone] Encounter Details Date Type Department Care Team (Late st Contact Info) Description 03/05/2013 Documentation Visit [facility] Infectious Disease - Main [address] [id number] Juli Franz MD Social History Tobacco Use [...] MD - 03/05/2013 1636 EDT TC to [facility] lab - HIV PCR result form 02/26 [...] Contact Info) Description 05/31/2024 10:00 EST Telemedicine [facility] Infectious Disease [address] [address] Lit Pina, DO 111 [facility], [address] [place] [phone] documented as of this encounter Visit Diagnoses Not on filedocumented in this encounter Care Teams Transition Assistant Relationship Specialty Start Date End Date Hanane Pollock NP [facility] [address] [place] [address] PCP - General 01/30/09 02/23/19 documented as of this encounter
--- OUTSIDE RECORDS SUMMARY | 2024-05-27 13:21 | XMS_ITS | Encounter Summary ---
Author Organization [facility] Address [address] [place] [address] Care Team Providers Care Spikemaking Supervisor Name Role Phone Hanane Pollock NP Primary Care Provider [phone] Encounter Details Date Type Department Care Team (Late st Contact Info) Description 04/30/2006 Before PRISM Converted Visit (Maple) [facility] - Maple conversion [address] [place] [address] Juli Franz MD Social History Tobacco Use [...] 1714 EST DIVISION OF INFECTIOUS DISEASE - [facility] PROGRESS/FOLLOWUP NOTE - 04/30/2006 Comprehensive Care [...] Nelly Franz MD A - Job ID: [id number] Document ID: [id number] cc: Hanane Pollock NP documented in this encounter Plan of Treatment Upcoming Encounters Date Type Department Care Team (Late st Contact Info) Description 05/31/2024 10:00 EST Telemedicine [facility] Infectious Disease - [address] [address] Lit Pina, DO [address] [place] [address], [facility] 5 [place] [phone] documented as of this encounter Visit Diagnoses Not on filedocumented in this encounter Care Teams Spikemaking Supervisor Relationship Specialty Start Date End Date Hanane Pollock NP [facility] [address] [place] [address] PCP - General 01/30/09 02/23/19 documented as of this encounter
--- OUTSIDE RECORDS SUMMARY | 2024-05-27 13:21 | XMS_ITS | Encounter Summary ---
Author Organization Health system Address [address] [place] [address] Care Team Providers Care Regrinder Name Role Phone Hanane Pollock NP Primary Care Provider [phone] Encounter Details Date Type Department Care Team (Late st Contact Info) Description 06/14/2011 Orders Only [facility] Infectious Disease - [address] [address] Juli Franz MD Chronic active viral hepatitis B (CMS-HCC) ([facility]); AIDS (acquired immune deficiency syndrome) ([facility]) Social History Tobacco Use Types [...] Last Filled Start Date End Date ritonavir 100 mg [...] Contact Info) Description 05/31/2024 10:00 EST Telemedicine [facility] Infectious Disease - [facility] [address] [place] [address] Lit Pina, DO 111 [facility], [address] [place] [address] documented as of this encounter [...] documented as of this encounter Care Teams Regrinder Relationship Specialty Start Date End Date Hanane Pollock NP [facility] [address] [place] [address] PCP - General 01/30/09 02/23/19 documented as of this encounter
--- OUTSIDE RECORDS SUMMARY | 2024-05-27 13:21 | XMS_ITS | Encounter Summary ---
Author Organization [facility] Address [address] [place] [address] Care Team Providers Care Private Inquiry Agent Name Role Phone Hanane Pollock NP Primary Care Provider [phone] Reason for Visit * Reason Comments Follow-up Encounter Details Date Type Department Care Team (Late st Contact Info) Description 10/28/2012 9:45 EDT Office Visit [facility] Infectious Disease [address] [address] Juli Franz MD AIDS (acquired immune deficiency [...] 3 10/28/2012 04/06/2013 ritonavir (NORVIR) 100 mg tabletIndications:A IDS (acquired immune deficiency syndrome) (HCC-CMS) Take 1 Tab by mouth every 24 hours. 30 Tab 3 10/28/2012 04/06/2013 lamiVUDine (EPIVIR) 300 mg tabletIndications:A IDS (acquired immune deficiency syndrome) (HCC-CMS) Take 1 Tab by mouth daily. 30 Tab 3 10/28/2012 04/06/2013 tenofovir (VIREAD) 300 mg tabletIndications:A IDS (acquired immune deficiency syndrome) (HCC-CMS) Take 1 Tab by mouth daily. 30 Tab 3 10/28/2012 04/06/2013 Raltegravir (ISENTRESS) 400 mg TabIndications:AIDS (acquired immune deficiency syndrome) (HCC-CMS) Take 1 Tab by mouth 2 times daily. 60 Tab 3 10/28/2012 04/06/2013 documented in this encounter Progress Notes * Beena Wayne - 10/29/2012 0833 EDT Faxed lab orders to [facility] lab 4.18.13 * Juli Franz MD - 10/28/2012 0949 EDT [facility] FOLLOWUP NOTE DOS 10/28/2012 Last seen: 06/03/2012 [...] [facility] Infectious Disease - [address] [address] Lit Pina, DO [address] [place] [address], [address] [place] [address] documented as of this encounter [...] documented as of this encounter Care Teams Private Inquiry Agent Relationship Specialty Start Date End Date Hanane Pollock NP [facility] [address] [place] [address] PCP - General 01/30/09 02/23/19 documented as of this encounter
--- OUTSIDE RECORDS SUMMARY | 2024-05-27 13:21 | XMS_ITS | Encounter Summary ---
Author Organization [facility] Address [address] [place] [address] Care Team Providers Care Biomedical Manager Name Role Phone Hanane Pollock NP Primary Care Provider [phone] Encounter Details Date Type Department Care Team (Latest Contact Info) Description 05/15/2010 11:06 EDT - 05/15/2010 22:17 EDT Hospital Encounter [facility] Cardiovascular Unit [address] [place] [address] Juli Franz MD Discharge Disposition: Home or [...] this encounter Medications at Time of Discharge atazanavir (REYATAZ) 300 mg capsule Take 300 [...] home with Fernando via wheelchair. * Jocelyn Cardeans RN - 05/15/2010 1323 EDT Patient greeted in CVU. Id verified verbally and via armband. Allergy bracelet on wrist. IV patent.Patient brought to Angio for U/S liver biopsy. Consent signed. Patient [...] procedure. Instructed that patient must have a driver manager with him due to sedation he willreceive for procedure and Fernando stated that he will be the driver manager. Gave phone number for CVU with any questions patient may have. documented in this encounter Procedure Notes * Morales Miranda MD - 05/15/2010 1345 EDT [...] Bridger Miranda MD Interventional Radiology Fellow Pager #[phone] Cosigned by Michael Kirkpatrick MD at 05/15/2010 14:38 EDT documented in this encounter OR Notes * [...] Info) Description 05/31/2024 10:00 EST Telemedicine [facility] Infectious Disease [address] [address] Lit Pina, DO 111 [facility], [address] [place] [address] documented as of this encounter Procedures Procedure Name Priority Date/Time Associated Diagnosis Comments PROTIME STAT 05/15/2010 12:00 EDT COMPLETE BLOOD COUNT STAT 05/15/2010 12:00 EDT documented in this encounter Results * (ABNORMAL) HEMAGRAM (05/15/2010 12:00 EDT) WBC 7.64 4.0 - 10.4 K/cmm [facility] RBC 4.43 4.36 - 5.78 M/cmm [facility] Hemoglobin 15.6 13.8 - 17.3 gm/dl [facility] HCT 44.3 39.5 - 50.2 % [facility] MCV 100(H) 81 - [address] [facility] MCH 35.1(H) 27.6 - 33.[address] [facility] MCHC 35.1 32.8 - 36.4 gm/dl [facility] PLT 207 141 - 320 K/cmm [facility] RDW-CV 13.6 11.8 - 14.1 % [facility] Blood specimen (specimen) 05/15/2010 12:00 EDT 05/15/2010 12:18 EDT us Frank Simmons PA-C HEMATOLOGY & PF4 ORDERABL ES Final Result [facility] [address] [place] [address] * PROTIME (05/15/2010 12:00 EDT) Pro Time 12.5 9.9 - 13.1 secs [facility] I.N.R. 1.1 0.9 - 1.1 Ratio [facility] Comment: ??Moderate Intensity Coumadin INR = 2.0-3.0 Adjustments in anticoagulant therapy dose should be based upon the INR and NOT the Pro Time. ?? Blood specimen (specimen) 05/15/2010 12:00 EDT 05/15/2010 12:18 EDT us Frank Simmons PA-C HEMATOLOGY & PF4 ORDERABL ES Final Result [facility] [address] [place] [address] documented in this encounter Visit Diagnoses Not [...] 05/15/2010 documented in this encounter Care Teams Biomedical Manager Relationship Specialty Start Date End Date Hanane Pollock NP [facility] [address] [place] [address] PCP - General 01/30/09 02/23/19 documented as of this encounter
--- OUTSIDE RECORDS SUMMARY | 2024-05-27 13:21 | XMS_ITS | Encounter Summary ---
Author Organization [facility] Address [address] [place] [address] Care Team Providers Care Senior Business Development Analyst Name Role Phone Hanane Pollock NP Primary Care Provider [phone] Encounter Details Date Type Department Care Team (Latest Contact Info) Description 05/08/2011 15:17 EDT - 05/08/2011 23:59 EDT Hospital Encounter [facility] [address] [place] [address] Juli Franz MD Discharge Disposition: Home or [...] Description 05/31/2024 10:00 EST Telemedicine [facility] Infectious Disease - [address] [address] Lit Pina, DO 111 [facility], [facility] 5 [place] [address] documented as of this encounter Visit Diagnoses Not on filedocumented in this encounter Care Teams Senior Business Development Analyst Relationship Specialty Start Date End Date Hanane Pollock NP [facility] [address] [place], [place] [address] PCP - General 01/30/09 02/23/19 documented as of this encounter
--- OUTSIDE RECORDS SUMMARY | 2024-05-27 13:21 | XMS_ITS | Encounter Summary ---
Author Organization [facility] Address [address] [place] [address] Care Team Providers Care Career Development Counselor Name Role Phone Hanane Pollock NP Primary Care Provider [phone] Encounter Details Date Type Department Care Team (Late st Contact Info) Description 05/18/2008 Before PRISM Converted Visit (Maple) [facility] - Maple conversion [address] [place] [address] Juli Franz MD Social History Tobacco Use [...] 1436 EDT DIVISION OF INFECTIOUS DISEASE - [facility] PROGRESS/FOLLOWUP NOTE - 05/18/2008 [...] Franz MD - LUIS ARMANDO Job ID: [id number] Doc ID: [id number] cc: [facility] Hanane Pollock NP *[facility] documented in this encounter Plan of Treatment Upcoming Encounters Date Type Department Care Team (Late st Contact Info) Description 05/31/2024 10:00 EST Telemedicine [facility] Infectious Disease - [address] [id number] Lit Pina, DO [address] [place] [address], [address] [place] [address] documented as of this encounter Visit Diagnoses Not on filedocumented in this encounter Care Teams Career Development Counselor Relationship Specialty Start Date End Date Hanane Pollock NP [facility] [address] [place], [place] [address] PCP - General 01/30/09 02/23/19 documented as of this encounter
--- OUTSIDE RECORDS SUMMARY | 2024-05-27 13:21 | XMS_ITS | Encounter Summary ---
Author Organization [facility] Address [address] [place] [address] Care Team Providers Care Cadastral Surveyor Name Role Phone Hanane Pollock NP Primary Care Provider [phone] Encounter Details Date Type Department Care Team (Latest Contact Info) Description 05/23/2011 8:04 EST - 05/23/2011 16:27 EST Hospital Encounter [facility] Cardiovascular Unit [address] [place] [address] Juli Franz MD Discharge Disposition: Home or [...] chest x-ray to a facility other than [facility] because of worsening symptoms, youmay need to [...] 2 hrs. Keep pt on 02 via ME D/c home F/u Dr. Franz for bx [...] in SR on monitor. Safety strapin place. Scenic Artist Scan completed. 1005- Ruiz Moment completed with all in room. Right Upper Back prepped and draped in usual sterile fashion. Right Upper Lobe Lung biopsy completed. Fentanyl 250 mcg and Versed 5 mg given for pt comfort. Report called to LYDIA Forrest in CVU . Pt transferred back to [facility] in stable condition. * Kiara Gregorio RN - 05/23/2011 0825 EST 0820 [place] Cedillo arrived to the Cardiovascular Unit via ambulatory. Patient identified per [facility] policy and oriented to Unit. Reviewed pre-procedure [...] prior to procedure, and to have a recycling collections driver due to sedation he will receive [...] Intake: 05/23/11 Time of last solid intake: 2099 Date of last solid intake: 05/22/11 Patient Appropriate Candidate for Planned Sedation?: Yes Cosigned by Michael Kirkpatrick MD at 05/24/2011 14:09 EST documented in this encounter Procedure Notes * Industrial Chemicals Supervisor, Scan - 05/28/2011 1139 ESTAssociated Order(s): PROCEDURE REPORTS - SCANNED * Frank Simmons PA-C - 05/23/2011 1141 EST IR Procedure Note Procedure: CT guided right lung biopsy Date Performed: 05/23/2011 Radiologist/Abrasive Mixer(s): MD Casimiro/LAUREEN Smimons Sedation/Anesthesia: Versed 5 mg Fentanyl 250 mcg [...] cytology and cx MARLENE Agudelo 05/23/2011 11:41 Cosigned by Michael Kirkpatrick MD at 05/24/2011 14:09 EST documented in this encounter Miscellaneous Notes * Scanned Note-Null - Industrial Chemicals Supervisor, Scan - 05/28/2011 1139 EST * Scanned Note-Null - Industrial Chemicals Supervisor, Scan - 05/28/2011 1139 EST * Scanned Note-Null - Industrial Chemicals Supervisor, Scan - 05/28/2011 1139 EST documented in this encounter Plan of Treatment Upcoming Encounters Date Type Department Care Team (Late st Contact Info) Description 05/31/2024 10:00 EST Telemedicine [facility] Infectious Disease - [address] [address] Lit Pina, DO [address] [place] [address], [facility] 5 [place] [address] documented as of this encounter [...] EST) 05/28/2011 11:3 9 EST Narrative Transcriptions Industrial Chemicals Supervisor, Scan - 05/28/2011 11:39 EST us Scan Industrial Chemicals Supervisor PROCEDURE/MINOR SURGICAL ORDE RABLES Final Result * CHEST PA (05/23/2011 16:04 EST) Anatomical [...] clear accounting for the low lung volumes. us Frank Simmons PA-C IMG DIAGNOSTIC IMAGING OR DERABLES Final Result * CHEST PA (05/23/2011 13:50 EST) Anatomical [...] lung apex. The left lung is clear. us Frank Simmons PA-C IMG DIAGNOSTIC IMAGING OR DERABLES Final Result * BACTERIAL CULTURE/SMEAR, RESPIRATORY (05/23/2011 11:19 EST) Specimen Description Fine Needle Asp Lung, right upper lobe [facility] Gram Smear Result Few Polys [facility] Gram Smear Result No alveolar macrophages seen [facility] Gram Smear Result No bacteria seen [facility] Result No growth [facility] Report Status 05/28/[address] [facility] Specimen from lung obtained by fine needle aspiration procedure (specimen) 05/23/2011 11:19 EST 05/23/2011 12:21 EST us Juli Franz MD MICROBIOLOGY - GENERAL ORDERAB LES Final Result [facility] [address] [place] [address] * FUNGUS CULTURE/SMEAR, OTHER (05/23/2011 11:19 EST) Specimen Description Fine Needle Asp Lung, right upper lobe 1cc [facility] Fungal Smear No fungi seen [facility] Result No fungi isolated [facility] Report Status 06/20/2011 Final [facility] Specimen from lung obtained by fine needle aspiration procedure (specimen) 05/23/2011 11:19 EST 05/23/2011 12:19 EST Frank Simmons PA-C MICROBIOLOGY - GENERAL OR DERABLES Final Result Performing Organization Address [facility] Co de Phone Number [facility] [address] [place] [address] * AFB CULTURE/SMEAR, OTHER (05/23/2011 11:18 EST) Specimen Description Fine Needle Asp Lung, right upper lobe 1cc [facility] Acid Fast No acid-fast bacilli seen [facility] Result No acid-fast bacilli isolated [facility] Report Status 07/05/2011 Final [facility] Specimen from lung obtained by fine needle aspiration procedure (specimen) 05/23/2011 11:18 EST 05/23/2011 12:17 EST Juli Franz MD MICROBIOLOGY - GENERAL ORDERAB LES Final Result Performing Organization Address [facility] de Phone Number [facility] [address] [place] [address] * PROTIME (05/23/2011 8:30 EST) Pro Time 11.3 9.5 - 13.1 secs [facility] I.N.R. 1.0 0.9 - 1.1 Ratio [facility] Comment: Moderate Intensity Coumadin INR = 2.0-3.0 Adjustments in anticoagulant therapy dose should be based upon the INR and NOT the Pro Time. Blood specimen (specimen) 05/23/2011 8:30 EST 05/23/2011 9:07 EST Danika Hunter RN HEMATOLOGY & PF4 ORDERABLES Fi nal Result Performing Organization Address City/[facility] de Phone Number [facility] [address] [place] [address] * (ABNORMAL) HEMAGRAM (05/23/2011 8:30 EST) WBC [...] (specimen) 05/23/2011 8:30 EST 05/23/2011 9:07 EST us Danika Hunter RN HEMATOLOGY & PF4 ORDERABLES Fi nal Result Performing Organization Address [facility] de Phone Number [facility] [address] [place] [address] documented in this encounter Visit Diagnoses Not [...] 05/23/2011 documented in this encounter Care Teams Cadastral Surveyor Relationship Specialty Start Date End Date Hanane Pollock NP [facility] [address] [place] [address] PCP - General 01/30/09 02/23/19 documented as of this encounter
--- OUTSIDE RECORDS SUMMARY | 2024-05-27 13:22 | XMS_ITS | Encounter Summary ---
Author Organization [facility] Address [address] [place] [address] Care Team Providers Care Gardening Instructor Name Role Phone Hanane Pollock NP Primary Care Provider [phone] Encounter Details Date Type Department Care Team (Late st Contact Info) Description 04/20/2004 Results Only [facility] Dermatology 5th Floor [address] [id number] Artur Blum MD [address] [place] [phone] Social History Tobacco Use Types Packs/Day Years [...] [facility] Infectious Disease - [address] [phone] Lit Pina DO [address] [address] documented as of this encounter Procedures [...] ? KALEB CEDILLO ? Accession #: ? [id number] ? : ? 1970 (Age: 34) ??M [...] and entirely submitted in one cassette. ??(Dr. Leal-)/[facility] End of Report [facility] 04/20/2004 04/21/2004 8:5 8 EDT us Artur Blum MD PATHOLOGY ORDERABLES Nupur rubio Result [facility] [address] [place] [address] documented in this encounter Visit Diagnoses Not on filedocumented in this encounter Care Teams Gardening Instructor Relationship Specialty Start Date End Date Hanane Pollock, SOM [facility] [address] [place] [id number] PCP - General 01/30/09 02/23/19 documented as of this encounter
--- OUTSIDE RECORDS SUMMARY | 2024-05-27 13:22 | XMS_ITS | Encounter Summary ---
[facility] Organization [facility] [place] [address] Care Team Providers Care Sql Tech Name Role Phone Sabrina Jerome APRN Primary Care Provider [phone] Encounter Details Date Type Department Care Team [...] on filedocumented in this encounter Care Teams Sql Tech Relationship Specialty Start Date End Date Sabrina Jerome APRN PCP - General Family Medicine 01/02/22 documented as of this encounter
--- OUTSIDE RECORDS SUMMARY | 2024-05-27 13:22 | XMS_ITS | Encounter Summary ---
Author Organization [facility] Address [address] [place] [address] Care Team Providers Care Calender Inspector Name Role Phone Hanane Pollock NP Primary Care Provider [phone] Encounter Details Date Type Department Care Team (Late st Contact Info) Description 05/22/2004 Results Only [facility] Dermatology 5th [address] [phone] Artur Blum MD [address] [place] [phone] Social History Tobacco Use Types Packs/Day Years [...] EST Telemedicine [facility] Infectious Disease - [address] [phone] Lit Pina DO [address] [address] documented as of this encounter [...] ? KALEB CEDILLO ? Accession #: ? [id number] ? : ? 1970 (Age: 34) ??M [...] Received: ? Skin, lip Clinical History: ? SK, wart; clinical diagnosis code: ??238.2 Gross Description: ? Received in formalin labelled Mamadou is an irregular 1.0 x 0.6 x less than 0.1 cm white-lazcano skin shave which displays a granular, focally crusted epidermis. ??The specimen is inked, sectioned, and submitted in its entirety in one cassette. ??(Isaiah Gilbert/[facility] End of Report [facility] 05/22/2004 05/28/2004 9:4 0 EST us Artur Blum MD PATHOLOGY ORDERABLES Nupur rubio Result [facility] [address] [place] [address] documented in this encounter Visit Diagnoses Not on filedocumented in this encounter Care Teams Calender Inspector Relationship Specialty Start Date End Date Hanane Pollock, SOM [facility] [address] [place] [id number] PCP - General 01/30/09 02/23/19 documented as of this encounter
--- OUTSIDE RECORDS SUMMARY | 2024-05-27 13:22 | XMS_ITS | Encounter Summary ---
Author Organization [facility] Address [address] [place] [address] Care Team Providers Care Acid Tester Name Role Phone Unavailable Primary Care Provider Unavailabl e Encounter Details Date Type Department Care Team (Late st Contact Info) Description 05/22/2004 9:05 EST - 05/22/2004 11:59 EST Hospital Encounter [facility] - Other [address] [place] [address] Daniel Blum MD [address] [phone] Discharge Disposition: Auto Discharge Social History Tobacco [...] EST Telemedicine [facility] Infectious Disease - [address] [address] Lit Pina DO [address] [phone] documented as of this encounter Visit Diagnoses Not on filedocumented in this encounter
--- OUTSIDE RECORDS SUMMARY | 2024-05-27 13:22 | XMS_ITS | Encounter Summary ---
[place] [address] Care Team Providers Care Ammonia Operator Name Role Phone Sabrina Jerome APRN Primary Care Provider [phone] Reason for Referral * Consultation (Routine) - Closed Specialty Diagnoses / Procedures Referred By Ezequiel arita Referred To Contact Maxillofacial Surgery Diagnoses Extraction of tooth [place] [address] [facility] [address] [place] [phone] Referral ID Status Reason Start Date Expiration Date V isits Requested Visits Authorized [id number] Closed Consult, Test & Treat 01/10/2023 01/10/2024 1 1 Encounter Details Date Type Department Care Team (Latest Contact Info) Description 01/10/2023 Transcribe Orders eDH Incoming Referrals [phone] Shakeel Calhoun DDS [place], [place] [phone] Extraction of tooth needed Social History Tobacco [...] needed documented in this encounter Care Teams Ammonia Operator Relationship Specialty Start Date End Date Sabrina Jerome APRN PCP - General Family Medicine 01/02/22 documented as of this encounter
--- OUTSIDE RECORDS SUMMARY | 2024-05-27 13:22 | XMS_ITS | Encounter Summary ---
Author Organization [facility] Address [facility] [place] [address] Care Team Providers Care Traffic Maintenance Supervisor Name Role Phone Sabrina Jerome LEGAL SPECIALIST Primary Care Provider [phone] Reason for Referral * Consultation (Routine) - Closed Specialty Diagnoses / Procedures Referred By Contac t Referred To Contact Dermatology Diagnoses Pilar cyst of scalp Singh Bhatt MD [facility] [address] KAM[address] [place] [address] Tara Choi, electrical design engineer ID Status Reason Start Date Expiration Date V isits Requested Visits Authorized [id number] Closed Consult, Test & Treat 05/10/2022 05/10/2023 1 1 Reason for Visit * Consultation (Routine) - Closed Specialty Diagnoses / Procedures Referred By Contac t Referred To Contact Dermatology Diagnoses Sebaceous cyst Skin tags, anus or rectum Papule Sabrina Jerome, LEGAL SPECIALIST [address] [place] [address] [facility] [address] [place] [address] Referral ID Status Reason Start Date Expiration Date V isits Requested Visits Authorized [id number] Closed Consult, Test & Treat PCP Updated and/or Approved 01/02/2022 01/02/2023 12 12 Encounter Details Date Type Department Care Team (Late st Contact Info) Description 05/10/2022 2:20 PM EDT Office Visit Dermatology at 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 Chart routed to surgery bead flipper for scheduling of excision. Figure 1 Photo(s) taken and charted with patient's verbal consent. Other: ??? N/A RTC: 1 year for FSE. Referral placed for Pilar Cyst Excision. []Note routed to bead flipper [x]Recall placed in scheduling system []Appointment scheduled at checkout Scribe attestation: WALDEMAR Macario has performed the documentation for this encounter inthe presence of and acting as a scribe for Singh Bhatt MD. I performed the above scribed service and agree with the accuracy of the documentation in this encounter. Reviewed and signed by: Singh Bhatt MD Dermatology [facility] [place] Patient seen and evaluated with staff car greaser: Yan Lockett MD Department of Dermatology [facility] [place] * Yan Lockett MD - 05/10/2022 2:20 [...] dysplasia documented in this encounter Care Teams Traffic Maintenance Supervisor Relationship Specialty Start Date End Date Sabrina Jerome APRN PCP - General Family Medicine 01/02/22 documented as of this encounter
--- OUTSIDE RECORDS SUMMARY | 2024-05-27 13:22 | XMS_ITS | Clinical Summary ---
Author Organization [facility] Address [facility] [place] [address] Care Team Providers Care Back Tender Pulp Drier Name Role Phone Sabrina Jerome APRN Primary Care Provider [phone] Allergies Active Allergy Reactions Criticality Noted Date [...] Advance Directive 01/18/2023 Covid-19 Vaccine (1 - season) 2024 Influenza (Flu) vaccine (1 o f 1 - Influenza standard series) 03/14/2024 Care Teams Back Tender Pulp Drier Relationship Specialty Start Date End Date Sabrina Jerome APRN PCP - General Family Medicine 01/02/22
--- OUTSIDE RECORDS SUMMARY | 2024-05-27 13:22 | XMS_ITS | Encounter Summary ---
Author Organization [facility] Address [address] [place] [address] Care Team Providers Care Sales Planner Name Role Phone Hanane Mccormack NP Primary Care Provider [phone] Encounter Details Date Type Department Care Team (Late st Contact Info) Description 12/01/2002 Results Only [facility] Radiology - [facility] [address] [place], [place] [phone] Alissa Mas MD 111 [facility] [address] [place] [address] Social History Tobacco Use Types [...] Contact Info) Description 05/31/2024 10:00 EST Telemedicine [facility] Infectious Disease - [address] [phone] Lit Pina DO 111 [facility], [facility] [address] [place] [address] documented as of this encounter [...] ? KALEB CEDILLO ? Accession #: ? [id number] ? : ? 1970 (Age: 32) ??M [...] histologic features. Clinical correlation is essential. ??(Dr. Tomlinson)/[facility] Document reviewed and electronically signed by: [...] iron on the iron stained slide. ??(Dr. Brizuela)/[facility] Document reviewed and electronically signed by: [...] is entirely submitted in one cassette. ??(Brando Estrella/[facility] End of Report [facility] 12/01/2002 12/01/2002 9:1 6 EDT us Alissa Mas MD PATHOLOGY ORDERABLES Final Result [facility] [address] [place] [address] documented in this encounter Visit Diagnoses Not on filedocumented in this encounter Care Teams Sales Planner Relationship Specialty Start Date End Date Hanane Mccormack, S IRON WORKER [facility] [address] [place] [address] PCP - General 01/30/09 02/23/19 documented as of this encounter
--- OUTSIDE RECORDS SUMMARY | 2024-05-27 13:22 | XMS_ITS | Encounter Summary ---
Author Organization [facility] [place] [address] Care Team Providers Care Cushion Maker Hand Name Role Phone Sabrina Jerome APRN Primary Care Provider [phone] Encounter Details Date Type Department Care Team [...] on filedocumented in this encounter Care Teams Cushion Maker Hand Relationship Specialty Start Date End Date Sabrina Jerome APRN PCP - General Family Medicine 01/02/22 documented as of this encounter
--- OUTSIDE RECORDS SUMMARY | 2024-05-27 13:22 | XMS_ITS | Encounter Summary ---
Author Organization [facility] Address [address] [place] [address] Care Team Providers Care Automatic Edger Name Role Phone Unavailable Primary Care Provider Unavailabl e Encounter Details Date Type Department Care Team (Latest Contact Info) Description 11/30/2002 11:59 EDT Hospital Encounter [facility] Radiology - [facility] [address] [place], [place] [address] Juli Franz MD Discharge Disposition: Home or [...] [facility] Infect[facility] - [address] [address] Lit Pina, DO 111 [facility], [address] [place] [phone] documented as of this encounter Visit Diagnoses Not on filedocumented in this encounter
--- OUTSIDE RECORDS SUMMARY | 2024-05-27 13:22 | XMS_ITS | Encounter Summary ---
Author Organization [facility] Address [address] [place] [address] Care Team Providers Care Teacher Early Childhood Development Name Role Phone Unavailable Primary Care Provider Unavailabl e Encounter Details Date Type Department Care Team (Latest Contact Info) Description 12/01/2002 15:57 EDT Hospital Encounter [facility] - Other [address] [place] [address] Akhil Chapman MD Discharge Disposition: Auto Discharge [...] [facility] Infectious Disease - [address] [address] Lit Pina, DO 111 [facility], [address] [place] [phone] documented as of this encounter Visit Diagnoses Not on filedocumented in this encounter
--- OUTSIDE RECORDS SUMMARY | 2024-05-27 13:22 | XMS_ITS | Encounter Summary ---
Author Organization [facility] Address [facility] [place] [address] Care Team Providers Care Supply Coordinator Name Role Phone Sabrina Jerome APRN Primary Care Provider [phone] Reason for Referral * Consultation (Routine) - Closed Specialty Diagnoses / Procedures Referred By Ezequiel arita Referred To Contact Dermatology Diagnoses Sebaceous cyst Skin tags, anus or rectum Papule Sabrina Jerome APRN [address] [place] [address] [facility] Dermatology [address] [place] [address] Referral ID Status Reason Start Date Expiration Date V isits Requested Visits Authorized [id number] Closed Consult, Test & Treat PCP Updated and/or Approved 01/02/2022 01/02/2023 12 12 Encounter Details Date Type Department Care Team (Latest Contact Info) Description 01/02/2022 Transcribe Orders eDH Incoming Referrals [phone] Sabrina Jerome APRN [address] [place], [place] [phone] Sebaceous cyst; Skin tags, anus or rectum; [...] skin documented in this encounter Care Teams Supply Coordinator Relationship Specialty Start Date End Date Sabrina Jerome APRN PCP - General Family Medicine 01/02/22 documented as of this encounter
--- OUTSIDE RECORDS SUMMARY | 2024-05-27 13:22 | XMS_ITS | Encounter Summary ---
Author Organization [facility] Address [facility] [place] [address] Care Team Providers Care Environmental Science Professor Name Role Phone Laura De Primary Care Provider + Reason for Visit * Consultation (Routine) - Specialty Diagnoses / Procedures Referred By Ezequiel arita Referred To Contact Dermatology Diagnoses skin lesion Laura De PA [address] [place] [address] [facility] Dermatology [address] [place] [address] Referral ID Status Reason Start Date Expiration Date V isits Requested Visits Authorized [id number] Consult, Test & Treat [facility] 04/16/2018 04/16/2019 6 6 Encounter Details Date Type Department Care Team (Late st Contact Info) Description 05/11/2018 9:45 AM EDT Office Visit Dermatology at [facility] [address] [place] [phone] Aretha Lassiter MD [facility] [place] [address] Condyloma acuminata Social History Tobacco Use Types [...] documentation. Aretha Lassiter MD Section of Dermatology [facility] documented in this encounter Plan of Treatment Not on file documented as of this encounter Visit Diagnoses Diagnosis Condyloma acuminata Condyloma acuminatum documented in this encounter Care Teams Environmental Science Professor Relationship Specialty Start Date End Date Laura De PA PCP - General Family Medicine 04/16/18 01/01/22 documented as of this encounter
--- OUTSIDE RECORDS SUMMARY | 2024-05-27 13:22 | XMS_ITS ---
Author Organization [facility] Address [address] [place] [address] Care Team Providers Care Bullet Maker Name Role Phone Sabrina Jerome PRIMARY COUNSELOR Primary Care Provider [phone] HIV Status:Enrolled (Active) Start date:08/21/2023 Enrollment date:08/22/2023 Enrollment reason:Referred by provider Current support & services provided:Clinical Management, Refill Management Linked medications:emtricitab/rilpiviri/tenof ala (Active), raltegravir potassium (Active) Linked problems:Acquired immunodeficiency syndrome ([facility]) (Active) Case Team Name Relationship Phone Frankie Mitchell [facility] Pharmacist(Responsible Staff) Continued Care and Services Coordination
--- OUTSIDE RECORDS SUMMARY | 2024-05-27 13:22 | XMS_ITS | Encounter Summary ---
Author Organization [facility] [place] [address] Care Team Providers Care Assembler For Puller Over Machine Name Role Phone Sabrina Jerome APRN Primary Care Provider [phone] Encounter Details Date Type Department Care Team [...] on filedocumented in this encounter Care Teams Assembler For Puller Over Machine Relationship Specialty Start Date End Date Sabrina Jerome APRN PCP - General Family Medicine 01/02/22 documented as of this encounter
--- OUTSIDE RECORDS SUMMARY | 2024-05-27 13:22 | XMS_ITS | Encounter Summary ---
Author Organization [facility] Address [address] [place] [address] Care Team Providers Care Interventional Physician Name Role Phone Unavailable Primary Care Provider Unavailabl e Encounter Details Date Type Department Care Team (Late st Contact Info) Description 05/25/2004 13:30 EST Hospital Encounter [facility] - Other [address] [place] [address] Daniel Blum MD [address] [phone] Social History Tobacco Use Types Packs/Day Years [...] Info) Description 05/31/2024 10:00 EST Telemedicine [facility] Infectious Disease - [address] [address] Lit Pina DO [address] [address] Pending Results Name Type Priority Associated Diagnoses [...] of this reading. Procedure Note 04/30/2011 History: [facility] * 04/16/11 [...] at the time of this reading. Juli Franz MD IMG OTHER IMAGING ORDERABLES F inal Result documented in this encounter Visit Diagnoses Not on filedocumented in this encounter
--- OUTSIDE RECORDS SUMMARY | 2024-05-27 13:22 | XMS_ITS | Encounter Summary ---
Author Organization [facility] Address [facility] [place] [address] Care Team Providers Care Public Relations Senior Associate Name Role Phone Sabrina Jerome APRN Primary Care Provider [phone] Reason for Visit * Reason Comments Procedure * Consultation (Routine) - Closed Specialty Diagnoses / Procedures Referred By Contsue t Referred To Contact Dermatology Diagnoses Pilar cyst of scalp Singh Bhatt MD [facility] [address] [place] [address] Tara Choi RN Referral ID Status Reason Start Date Expiration Date V isits Requested Visits Authorized [id number] Closed Consult, Test & Treat 05/10/2022 05/10/2023 1 1 Encounter Details Date Type Department Care Team (Latest Contact Info) Description 06/25/2022 3:15 PM EST Procedure visit Dermatology at [facility] [address] [place] [address] Giovanni Vaughan MD [facility] [address] [place] [address] Pilar cyst of scalp Social History Tobacco [...] and signed by: Soumya Schulz MD Dermatology [facility] Patient seen and evaluated with staff helpdesk technician: Giovanni Vaughan MD Department of Dermatology [facility] * Soumya Schulz MD - 06/25/2022 [...] Report (06/25/2022 3:49 PM EST) Final Diagnosis [id number] ? Location: [facility] The signing pathologist has (i) examined the relevant preparation(s) for the specimen(s) and (ii) rendered or confirmed the diagnosis(es). . 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 Dermatopathologist Performed at: ??[facility] Dept. of Pathology, [place] [address] House Supervisor: Suyapa Joseph MD, FCAP, ??CLIA Certificate: [id number] SPECIMEN(S) SUBMITTED A - left temporal scalp, [...] labeled A1-A5. ??sns 07/01/2022 8:45 AM EST [facility] EPIDERMOID CYST / Unknown 06/25/2022 3:49 PM EST 06/25/2022 3:49 PM EST Soumya Schulz MD PATHOLOGY/CYTOLOGY O [facility] [place], [place] [id number] [place] [address] [place] [address] * Specimen to Pathology (06/25/2022 3:49 PM EST) AP Specimen 06/25/2022 3:49 PM EST 06/25/2022 3:49 PM EST Narrative [facility] - 06/25/2022 3:49 PM EST Specimen requisition ordered. ??Separate Pathology report to follow Giovanni Vaughan MD PATHOLOGY/CYTOLOGY O [facility] Performing Organization Address City/[facility]/ZIP Co de Phone Number [facility] [place] [address] documented in this encounter Visit Diagnoses Diagnosis Pilar cyst of scalp documented in this encounter Care Teams Public Relations Senior Associate Relationship Specialty Start Date End Date Sabrina Jerome, INTELLIGENCE SPECIALIST PCP - General Family Medicine 01/02/22 documented as of this encounter
--- OUTSIDE RECORDS SUMMARY | 2024-05-27 13:22 | XMS_ITS | Encounter Summary ---
Author Organization [facility] Address [address] [place] [address] Care Team Providers Care Databases Software Consultant Name Role Phone Hanane Pollock NP Primary Care Provider [phone] Encounter Details Date Type Department Care Team (Late st Contact Info) Description 04/21/2001 Results Only [facility] - Maple conversion [address] [place] [address] Unknown, Provider, Social History Tobacco Use Types [...] [facility] Infectious Disease - [address] [address] Lit Pina, DO 111 [facility], [facility] [address] [place] [address] documented as of this encounter Procedures Procedure [...] ?? infection is suspected. ??Test performed by [facility] ?? [facility], [place], [place] [facility] 04/21/2001 11:3 2 EDT 04/21/2001 11:46 EDT us Provider Unknown IMMUNOLOGY AND SEROLOGY ORDE AMY Final Result Performing Organization Address [facility] Co de Phone Number [facility] [address] [place] [address] * SYPHILIS SERO (RPR) (04/21/2001 11:32 EDT) Syphilis Sero (RPR) NONREACT. NR Dils [facility] 04/21/2001 11:3 2 EDT 04/21/2001 11:46 EDT Provider Unknown IMMUNOLOGY AND SEROLOGY ORDE AMY Final Result Performing Organization Address [facility] de Phone Number [facility] [address] [place] [address] * (ABNORMAL) IMMUNODEFICIENCY PANEL (04/21/2001 11:32 EDT) CD3 87(H) 67 - 84 % [facility] CD4 2(L) 40 - 65 % [facility] CD8 83(H) 10 - 38 % [facility] Absolute CD4 13(L) 702 - 1791 per UL [facility] Comment:The absolute CD4 cou nt was calculated using the manual differential 04/21/2001 11:3 2 EDT 04/21/2001 11:46 EDT us Provider Unknown IMMUNOLOGY AND SEROLOGY ORDTed REYES Final Result Performing Organization Address [facility] Co de Phone Number [facility] [address] [place] [address] * HIV-1 (WESTERN BLOT) (04/21/2001 11:32 EDT) HIV-1 Western Blot Positive. ??Antibodies reacted with the following antigen bands: p24, gp41, ?? p51, p55, p65, gp120, gp160 Test performed by [facility], [place], [place] [facility] HIV-1 Abs-EIA REACTIVE [facility] 04/21/2001 11:3 2 EDT 04/21/2001 11:46 EDT us Provider Unknown MD HISTORICAL LAB FOR SQ LOAD F inal Result [facility] [address] [place] [address] * QUANTITATIVE HIV POLYMERASE CHAIN REACTION (04/21/2001 11:32 EDT) HIV1 RNA 49,460 Unit: copies/mL ??(Note) This test is performed pursuant to a license agreement with ? [employer] ? TEST PERFORMED OR REFERRED BY [facility] ? [facility] ? [address] ? [place], [place] ??[address] ? [facility] Specimen Source Plasma [facility] 04/21/2001 11:3 2 EDT 04/21/2001 11:46 EDT us Provider Unknown CHEMISTRY & BLOOD GAS ORDERA BLES Final Result Performing Organization Address [facility] de Phone Number [facility] [address] [place] [address] * (ABNORMAL) HIV ANTIBODY (JOSEFINA) (04/21/2001 11:32 EDT) HIV 1/2 Antibody REACTIVE Sent to [facility], [place], [place] for further testing.(A) NR [facility] 04/21/2001 11:3 2 EDT 04/21/2001 11:46 EDT us Provider Unknown IMMUNOLOGY AND SEROLOGY ORDE RABLES Final Result Performing Organization Address [facility] de Phone Number [facility] [address] [place] [address] * (ABNORMAL) HEPATITIS C ANTIBODY (04/21/2001 11:32 EDT) Hepatitis C Ab Pos Indicates recent or remote infection.( AA) [facility] 04/21/2001 11:3 2 EDT 04/21/2001 11:46 EDT us Provider Unknown CHEMISTRY & BLOOD GAS ORDERA BLES Final Result Performing Organization Address [facility] de Phone Number [facility] [address] [place] [address] * (ABNORMAL) HEPATITIS B CORE ANTIBODY (04/21/2001 11:32 EDT) Hep B Core Ab Pos Indicates either remote past infection OR window period between disappearance of HBsAg and appearance of HBsAb.(AA) [facility] 04/21/2001 11:3 2 EDT 04/21/2001 11:46 EDT us Provider Unknown CHEMISTRY & BLOOD GAS ORDERA BLES Final Result [facility] [address] [place] [address] * (ABNORMAL) HEPATITIS B SURFACE ANTIGEN CONFIRMATION (04/21/2001 11:32 EDT) Hepatitis B Surface Antigen Confirmation Pos Positive, confirmed by inhibition(AA ) [facility] 04/21/2001 11:3 2 EDT 04/21/2001 11:46 EDT us Provider Unknown CHEMISTRY & BLOOD GAS ORDERA BLES Final Result Performing Organization Address City/[facility]/ZIP Co de Phone Number [facility] [address] [place] [address] * HEPATITIS B SURFACE ANTIGEN (04/21/2001 11:32 EDT) Hepatitis B Surface Ag Positive screen, confirmation to follow. [facility] 04/21/2001 11:3 2 EDT 04/21/2001 11:46 EDT us Provider Unknown CHEMISTRY & BLOOD GAS ORDERA BLES Final Result Performing Organization Address City/[facility]/ZIP Co de Phone Number [facility] [address] [place] [address] * HEPATITIS B SURFACE ANTIBODY (04/21/2001 11:32 EDT) Hepatitis B Surface Ab Neg [facility] 04/21/2001 11:3 2 EDT 04/21/2001 11:46 EDT us Provider Unknown CHEMISTRY & BLOOD GAS ORDERA BLES Final Result [facility] [address] [place] [address] * HEPATITIS A TOTAL ANTIBODY (04/21/2001 11:32 EDT) Hep A Antibody Neg [facility] 04/21/2001 11:3 2 EDT 04/21/2001 11:46 EDT us Provider Unknown CHEMISTRY & BLOOD GAS ORDERA BLES Final Result [facility] [address] [place] [address] * (ABNORMAL) COMPREHENSIVE METABOLIC PANEL (04/21/2001 11:32 EDT) Potassium 3.8 3.5 - 5.0 mEq/L [facility] Sodium 141 136 - 145 mEq/L [facility] Chloride 104 96 - 110 mEq/L [facility] CO2 27 24 - 30 mEq/L [facility] Total Alkaline Phosphatase 102 38 - 126 U/L [facility] Bilirubin, Total 0.4 0.2 - 1.3 mg/dl [facility] AST 101(H) 8 - 50 U/L [facility] ALT 195(H) 15 - 75 U/L [facility] Albumin 3.3 3.0 - 5.5 g/dl [facility] Total Protein 6.5 6.0 - 8.5 g/dl [facility] Creatinine 0.8 0.7 - 1.5 mg/dl [facility] BUN 12 10 - 26 mg/dl [facility] Calcium 8.4(L) 8.5 - 10.5 mg/dl [facility] Calculated Calcium 9.5 8.5 - 10.5 mg/dl [facility] Glucose, Serum 86 70 - 110 mg/dl [facility] Albumin/Globulin Ratio 1.0 [facility] 04/21/2001 11:3 2 EDT 04/21/2001 11:46 EDT us Provider Unknown MD CHEMISTRY & BLOOD GAS ORDERA BLES Final Result [facility] [address] [place] [address] * (ABNORMAL) HEMAGRAM & DIFF (04/21/2001 11:32 EDT) WBC 2.67(L) 4.0 - 10.4 K/cmm [facility] RBC 3.84(L) 4.36 - 5.78 M/cmm [facility] Hemoglobin 11.9(L) 13.8 - 17.3 gm/dl [facility] HCT 34.1(L) 39.5 - 50.2 % [facility] MCV 89 81 - [address] [facility] MCH 30.9 27.6 - 33.[address] [facility] MCHC 34.8 32.8 - 36.4 gm/dl [facility] PLT 186 141 - 320 K/cmm [facility] RDW-CV 13.1 11.8 - 14.1 % [...] LANE LAB RBC Morphology [facility] Type of Diff: Manual [facility] 04/21/2001 11:3 2 EDT 04/21/2001 11:46 EDT us Provider Unknown HISTORICAL LAB FOR SQ LOAD F inal Result [facility] [address] [place] [address] documented in this encounter Visit Diagnoses Not on filedocumented in this encounter Care Teams Databases Software Consultant Relationship Specialty Start Date End Date Hanane Pollock, SHIP RIGGER [facility] [address] [place], [place] [address] PCP - General 01/30/09 02/23/19 documented as of this encounter
--- OUTSIDE RECORDS SUMMARY | 2024-05-27 13:22 | XMS_ITS | Encounter Summary ---
Author Organization [facility] Address [address] [place] [address] Care Team Providers Care Lease Administrator Name Role Phone Unavailable Primary Care Provider Unavailabl e Encounter Details Date Type Department Care Team (Late st Contact Info) Description 04/20/2004 13:27 EDT Hospital Encounter [facility] - Other [address] [place] [address] Daniel Blum MD [address] [phone] Social History Tobacco Use Types Packs/Day Years [...] Description 05/31/2024 10:00 EST Telemedicine [facility] Infectious Disease - [address] [id number] Lit Pina DO [address] [address] documented as of this encounter Visit Diagnoses Not on filedocumented in this encounter
[2024-05-27 13:54] LABS: ALT 47 U/L (16-63); AST 20 U/L (15-37); Albumin 4.3 g/dL (3.4-5.0); Alkaline Phosphatase 77 U/L (46-116); Anion Gap 10.6 mmol/L (3-11); BUN 21 mg/dL (7-18); Bilirubin, Total 0.73 mg/dL (0.2-1.0); CO2 26.4 mmol/L (21.0-32.0); CREATININE 1.2 mg/dL (0.70-1.30); Calcium 9.3 mg/dL (8.5-10.1); Chloride 106 mmol/L (98-107); Estimated GFR 70.98 (mL/min/1.73m2); Glucose 112 mg/dL (74-106); Potassium 4.6 mmol/L (3.5-5.1); Sodium 143 mmol/L (136-145); Total Protein 7.4 g/dL (6.4-8.2)
[2024-05-28 16:51] LABS: 4/8 Ratio 0.95 (>=0.90); Absolute CD3 2341 Cells/uL (840-2669); Absolute CD8 1194 Cells/uL (154-1097); CD3 73 % (56-84); CD4 35 % (31-64); CD8 37 % (9-39)
[2024-05-29 15:07] LABS: HBV DNA Detect/Quant, PCR Undetected IU/mL (Undetected)
[2024-05-31 16:11] LABS: HIV 1 RNA Qualitative Detected Copys/mL (Undetected); HIV 1 RNA Quantitative <20 Copys/mL (Undetected)
== END 2024-05-27 13:03 | disposition home or self-care (01) ==
LOC: LOS 13:04
PROVIDERS: PCP Nurse Practitioner Family; Visit Provider Nurse Practitioner Family
DX: B20 Human immunodeficiency virus [HIV] disease (principal)
CPT/HCPCS: 36415; 80053; 87517; 87536; 85025; 86359; 86360

== ENCOUNTER 2024-07-26 10:15 | Outpatient (CLI) | payer MEDICARE, MEDICAID, SELFPAY ==
--- NOTE | 2024-07-26 12:35 | W.CCNOTE ---
Comprehensive Care Clinic Note Note: [facility] [address] [place]? [address] Comprehensive Care Clinic visit Name: Guanakito Cedillo? Date of :? 1970? Primary Care Provider: [facility] Date of Service: 07/26/2024 SUBJECTIVE CC: Acute exacerbation of bilateral chronic knee pain and follow up HIV care w H/O chronic active HBV & remote HCV+. HPI: 54 yo man who has a diagnosis of HIV/AIDS on modern ART, chronic HBV on antiviral tenofovir and + AB/undetectable HCV w/o treatment. He has years of bilateral knee pain with recent acute exacerbation causing him to take 9000mg Acetaminophen! daily stating this does not help the pain for very long. He also has celecoxib 100mg that he takes once daily. He had this RX?d for a shoulder injury and has continued to take it hoping it would help the knee pain, but has not had much relief. Guanakito has a long history of activities causing wear and tear of his knees. 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 he still is doing pramod but not daily. 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 His knees have been painful at times over the years but over the past few months have increased in discomfort that is interfering during the day and disturbing sleep at night. The left knee is worse that the right and the pain is mainly located in the medical aspect of both knees. He says he feels he has full ROM of both knees, denies locking of either knee and there seems to be minimal stiffness. At times there may be some slight swelling but never any overlying redness. ROS Constitutional: weight is steady, sleep has been interrupted by knee pain. No fevers, chills, night sweats Skin: Denies rash or lesions. Remains with permanent alopecia from years of fluconazole Head: Denies headache or head trauma Eyes: Denies visual changes, has glasses for reading Ear/Nose/Throat: No hearing loss noted, no recent URI symptoms. Mouth/Teeth: UTD with dental, has DCAP Neck: No neck pain or stiffness CV: Denies chest pain or pressure. No palpitations. 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 Moved back to [place], [place], soon after diagnosis and has been in care taking RXs consistently since. Past Surgical History: Rectal Colposcopy ? path negative, T&A at 7yo Past Psychiatric History: Depression in remission ? No H/O SI/HI. Social History: Place of : [place] Gender: Male Sexual Orientation ? MSM ? monogamous with his detention partner Racial Distribution: Primary Language: Tamazight Secondary Language(s): None Current County, State of Residence: [place], [place] Marital Status: Civil Union Family Size: 2 Pets: 1 dog, birds, chickens, ducks Housing: stable in a home they own Incarceration History: Remote past History: None Highest Grade Completed: 12 ? Able to read? 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 Income(s)/Means of Financial Support: Works ? yearly about $23,000 ? Occupational Exposures: None Health Insurance: Medicare and Medicaid ? Other payment source: [place], [place] [employer] services with food vouchers ? Coverage Issues: None Substance Abuse History: ? Tobacco: 1 ppd ? ETOH: In the past ? rare now ? Illicit Drug Use: None ? Legal MJ daily in the evening ? Rx Drug Dependence: None Other Psychosocial Considerations: None Family History ? Mother: ? - Heart Failure ? Father: COPD, CAD - ? Siblings: Brother w MS history in his 30s ? Children: none ? Grand Parents: ? Extended: Not Known Immunization History ? Tetanus/TDAP: 10/02/11 ? Hepatitis A: #1 ? 06/23/02, #2 ? 09/28/02 ? Hepatitis B: not indicated - + chronic active on RX tenofovir ? Flu Vaccine: 04/07/23 ? Pneumovax 23: #1 ? 05/05/02, #2 ? 04/22/07 ? Prevnar 13: ? Singrix: #1 ? 03/01/19, #2 ? /09/30 ? Menactra: #1 - 08/31/18, #2 - 03/01/19 ? other: Earline #1 - 04/30/19 Health Maintenance: UTD w PCP Lipids/Glucose: 05/27/24 ? non fasting glucose 112, 05/05/24 - Lipids ? Tchol 221, Trigs 124, HDL 54, LDL 143 ID Screenings ? Quantiferron: negative 08/11/19 HIV Lab work: 05/27/24 ? CD4 1134 w a % of 35, Viral Load undetectable (<20) HBV lab work: 05/27/24 ? undetectable (<10) OBJECTIVE Bilateral Knees: +FROM w/o swelling or evidence of effusion, tender in the medial tibial plateau area with suggestion of some crepitus on the left. + clicking but no locking Speech: Clear Coherent with normal pressure and anoop Psychiatric: Mood seems mildly depressed, Affect flat, orientation intact ASSESSMENT/PLAN 1.? Bilateral knee pain w acute exacerbation of chronic pain ? L>R, most likely contact representative of advanced DJD. Guanakito would be served well having a referral to Dr. Moon for specific ortho evaluation, imaging as deemed needed and appropriated intervention. I have suggested he increase the celecoxib 100 mg to bid and avoid Acetaminophen as much as possible or at least reduce it to no more that #8 - 500mg tabs a day given his chronic active Dx of HBV even though the VL is undetectable. 2. HIV ? 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 No change in medications MD visit scheduled: UTD and will be due in November 2024 Release of Records: Signed for his PCP Social Work/Psychiatry referral: [facility] Lab work for HIV status UTD. - CBCD - CD4/8 Immunodeficiency Panel, HIV Viral RNA PCR - Comprehensive Metabolic Profile 3. Chronic Active HBV undetectable w tenofovir antiviral RX. Remains undetectable and no change in the tenofovir in the Odefsey is needed.
== END 2024-07-26 10:16 | disposition home or self-care (01) ==
LOC: CCC 12:18
PROVIDERS: PCP Family Medicine; Visit Provider Nurse Practitioner Family
DX: B20 Human immunodeficiency virus [HIV] disease (principal); B18.2 Chronic viral hepatitis C; Z79.899 Other long term (current) drug therapy; M25.561 Pain in right knee; M25.562 Pain in left knee
CPT/HCPCS: 99214

== ENCOUNTER 2024-07-28 15:05 | Outpatient (REF) | payer MEDICARE, MEDICAID, SELFPAY ==
--- OUTSIDE RECORDS SUMMARY | 2024-07-28 15:08 | XMS_ITS | Encounter Summary ---
Author Organization [facility] Address [address] [place] [address] Care Team Providers Care Catia Designer Name Role Phone Sabrina Jerome BASKETBALL COACH Primary Care Provider [phone] Encounter Details Date Type Department Care Team (Latest Contact Info) Description 11/03/2023 Specialty Pharmacy [facility] [address] [place] [id number] Jori Mitchell RPH Refill Coordination Outreach for [...] 07/29/2023 added in this encounter Care Teams Catia Designer Relationship Specialty Start Date End Date Sabrina Jerome NP [address] [place] [address] PCP - General 03/29/21 documented as of this encounter
--- OUTSIDE RECORDS SUMMARY | 2024-07-28 15:08 | XMS_ITS | Encounter Summary ---
Author Organization [facility] Address [address] [place] [address] Care Team Providers Care Agricultural Economics Teacher Name Role Phone Sabrina Jerome REST ROOM MAID Primary Care Provider [phone] Encounter Details Date Type Department Care Team (Late st Contact Info) Description 04/02/2023 Lab Requisition [facility] Pathology & Laboratory Medicine - [address] [address] Outr Resulting Lab, Provider Social History Tobacco [...] Qual Undetected Undetected copies/mL 04/03/2023 13:37 EDT [facility] Blood VENOUS BLOOD / Unknown 04/02/2023 9:05 EDT 04/03/2023 8:27 EDT Narrative [facility] - 04/03/2023 13:37 EDT The quantification range of this assay is 20 IU/mL to 10,000,000 IU/mL. ??Testing was performed using the Lucy HIV test ([employer] with the lucy Round the [employer] System. us Provider Outr Resulting Lab CHEMISTRY & BLOOD GA S ORDERABLES Final Result [facility] [address] [place] [address] * (ABNORMAL) T CELL SUBSETS (04/02/2023 9:05 EDT) [facility] % CD3 74 56 - 84 % 04/04/2023 16:52 EDT [facility] % CD4 35 31 - 64 % 04/04/2023 16:52 EDT [facility] % CD8 38 9 - 39 % 04/04/2023 16:52 EDT [facility] Absolute CD3 2,441 840 - 2,669 Cells/uL 04/04/2023 16:52 [facility] Absolute CD4 1,162 488 - 1,734 Cells/uL 04/04/2023 16:52 [facility] Absolute CD8 1,267(H) 154 - 1,097 Cells/uL 04/04/2023 16:52 [facility] 4/8 Ratio 0.92 >=0.90 04/04/2023 16:52 EDT [facility] Blood VENOUS BLOOD / Unknown 04/02/2023 9:05 EDT 04/02/2023 17:21 EDT us Provider Outr Resulting Lab IMMUNOLOGY AND SEROL OGY ORDERABLES Final Result [facility] [address] [place] [address] documented in this encounter Visit Diagnoses Not on filedocumented in this encounter Care Teams Agricultural Economics Teacher Relationship Specialty Start Date End Date Sabrina Jerome NP [address] [place] [address] PCP - General 03/29/21 documented as of this encounter
--- OUTSIDE RECORDS SUMMARY | 2024-07-28 15:08 | XMS_ITS | Encounter Summary ---
Author Organization [facility] Address [address] [place] [address] Care Team Providers Care Tin Pot Operator Name Role Phone Sabrina Jerome BUGGY OPERATOR Primary Care Provider [phone] Encounter Details Date Type Department Care Team (Latest Contact Info) Description 02/06/2024 Specialty Pharmacy [facility] [address] [place], [place] [phone] Frankie Mitchell [facility] Refill Coordination Outreach for HIV [...] on filedocumented in this encounter Care Teams Tin Pot Operator Relationship Specialty Start Date End Date Sabrina Jerome NP [address] [place] [address] PCP - General 03/29/21 documented as of this encounter
--- OUTSIDE RECORDS SUMMARY | 2024-07-28 15:08 | XMS_ITS | Encounter Summary ---
Author Organization Health system Address [address] [place] [address] Care Team Providers Care Interstate Bus Dispatcher Name Role Phone Sabrina Jerome PAY AGENT Primary Care Provider [phone] Encounter Details Date Type Department Care Team (Late st Contact Info) Description 09/19/2022 Lab Requisition [facility] Pathology & Laboratory Medicine - [address] [address] Outr Resulting Lab, Provider Social History Tobacco [...] HIV 1 RNA QUANTITATION (09/19/2022 11:03 EST) [facility] HIV RNA Detection, Qual Undetected Undetected copies/mL 09/23/2022 14:44 EDT [facility] Blood VENOUS BLOOD / Unknown 09/19/2022 11:03 EST 09/19/2022 21:55 EST Narrative [facility] - 09/23/2022 14:44 EDT The quantification range of this assay is 20 IU/mL to 10,000,000 IU/mL. ??Testing was performed using the Lucy HIV test ([employer] with the lucy 6800 System. us Provider Outr Resulting Lab CHEMISTRY & BLOOD GA S ORDERABLES Final Result [facility] [address] [place] [address] * (ABNORMAL) T CELL SUBSETS (09/19/2022 11:03 EST) [facility] % CD3 74 56 - 84 % 09/20/2022 15:57 [facility] % CD4 36 31 - 64 % 09/20/2022 15:57 [facility] % CD8 37 9 - 39 % 09/20/2022 15:57 [facility] Absolute CD3 2,421 840 - 2,669 Cells/uL 09/20/2022 15:57 [facility] Absolute CD4 1,186 488 - 1,734 Cells/uL 09/20/2022 15:57 [facility] Absolute CD8 1,218(H) 154 - 1,097 Cells/uL 09/20/2022 15:57 [facility] 4/8 Ratio 0.97 >=0.90 09/20/2022 15:57 [facility] Blood VENOUS BLOOD / Unknown 09/19/2022 11:03 EST 09/19/2022 21:55 EST us Provider Outr Resulting Lab IMMUNOLOGY AND SEROL OGY ORDERABLES Final Result [facility] [address] [place] [address] documented in this encounter Visit Diagnoses Not on filedocumented in this encounter Care Teams Interstate Bus Dispatcher Relationship Specialty Start Date End Date Sabrina Jerome NP [address] [place] [address] PCP - General 03/29/21 documented as of this encounter
--- OUTSIDE RECORDS SUMMARY | 2024-07-28 15:08 | XMS_ITS | Encounter Summary ---
Author Organization [facility] Address [address] [place] [address] Care Team Providers Care Clinical Biochemical Geneticist Name Role Phone None, Provider Primary Care Provider Sabrina Kiran SYSTEMS ANALYST Primary Care Provider Encounter Details Date Type Department Care Team (Late st Contact Info) Description 07/28/2020 Lab Requisition [facility] Pathology & Laboratory Medicine - [facility] [address] [place] [address] Outr Resulting Lab, Provider Social History Tobacco [...] QUANTITATION (07/27/2020 16:30 EST) Pathologist [facility] HIV RNA Detection, Qual Undetected Undetected copies/mL 07/31/2020 14:55 EST [facility] Blood VENOUS BLOOD / Unknown 07/27/2020 16:30 EST 07/28/2020 17:29 EST Narrative [facility] - 07/31/2020 14:55 EST The quantification range of this assay is 20 IU/mL to 10,000,000 IU/mL. ??Testing was performed on the PADILLA Ampliprep/PADILLA TaqMan HIV v2.0 ([employer] us Provider Outr Resulting Lab CHEMISTRY & BLOOD GA S ORDERABLES Final Result Performing Organization Address City/[facility]/ZIP Co de Phone Number [facility] [address] [place] [address] * IMMUNODEFICIENCY PANEL (07/27/2020 16:30 EST) Pathologist [facility] % CD3 76 62 - 87 % 07/31/2020 16:28 EST [facility] % CD4 39 35 - 63 % 07/31/2020 16:28 EST [facility] % CD8 35 10 - 35 % 07/31/2020 16:28 EST [facility] Absolute CD4 1,398 329-1,427 Cells/uL 07/31/2020 16:28 EST [facility] Blood VENOUS BLOOD / Unknown 07/27/2020 16:30 EST 07/28/2020 17:27 EST us Provider Outr Resulting Lab IMMUNOLOGY AND SEROL OGY ORDERABLES Final Result Performing Organization Address City/[facility]/ZIP Co de Phone Number [facility] [address] [place] [phone] documented in this encounter Visit Diagnoses Not on filedocumented in this encounter Care Teams Clinical Biochemical Geneticist Relationship Specialty Start Date End Date None, Provider PCP - General 03/02/20 03/28/21 Sabrina Jerome, SYSTEMS ANALYST [address] [place] [phone] PCP - General 03/29/21 documented as of this encounter
--- OUTSIDE RECORDS SUMMARY | 2024-07-28 15:08 | XMS_ITS | Encounter Summary ---
Author Organization [facility] Address [address] [place] [address] Care Team Providers Care Plastics Factory Worker Name Role Phone Sabrina Jerome TECHNICAL SPECIALIST CYTOGENETICS Primary Care Provider [phone] Encounter Details Date Type Department Care Team (Latest Contact Info) Description 08/21/2023 Specialty Pharmacy [facility] [address] [place], [place] [phone] Frankie Mitchell [facility] Set up initial fill for HIV, Patient [...] Mitchell RP - 08/21/2023 0910 EST Discussed [facility] services with partner Greg Sampson. Patient has elected to enroll Odefsey and Raltegravir in [facility] Specialty Pharmacy???s clinical and dispensing services. Frankie Mitchell, PharmD Ambulatory Pharmacist [facility] Infectious Disease 08/21/2023 * Frankie Mitchell RP - 08/21/2023 0910 EST Spoke with Guanakito's partner Gerg, who is also requesting that Guanakito's lisinopril 10 mg script be sentto [facility] mail-order pharmacy in combination with his HIV medications. Prescription sent electronically to patient's preferred pharmacy. Will route to Bharat Juan to investigate ERP enrollment. Will route to Dr. Pina for review and to update clinic staff at [facility] who may be unaware of pharmacy change. Frankie Mitchell, PharmD Ambulatory Pharmacist [facility] Infectious Disease 08/22/2023 Med Orders Placed This Visit and Additions to the Medication List Medications xcswtldisesxz-vssxlmlravw-huigvqqcj alafenam (ODEFSEY) tablet Sig: Take 1 Tablet [...] * Bharat Juan - 08/21/2023 0910 EST [facility] Specialty Pharmacy - Patient Consent for ERP Guanakito Cedillo is a patient filling Isentress + Odefsey with [facility] and has agreed to enroll their non-specialty medications in our automatic refill program through Enhanced Refill Processing (ERP). Patient understands these medications will be automatically processed through the [facility] Mail Order program, 7 days prior to their next refill due date: yes Patient was instructed to call [facility] if they are prescribed a new medication that they would like to be mailed to them and/or added to ERP: yes Patient has a credit card on file in [employer] [facility] and consents to have it charged for these refillsautomatically: yes [facility] will review the patient's ERP profile in [employer] during each [facility] outreach calls. Patient understands that they still must speak with [facility] to process their specialty refill delivery: yes Medications to enroll in ERP: Lisinopril Bharat Juan 08/22/2023 * Erika House RPH - 08/21/2023 0910 EST I spoke with partner, Greg, they received delivery from [facility] today for Odefsey for 30 days- he asked me to call and cancel this and Isentress with [facility]. I did this today. Rxs at [facility] are canceled and he will get both of these from [facility]. documented in this encounter Plan of Treatment Not on file documented as of this encounter Visit Diagnoses Diagnosis Acquired immunodeficiency syndrome ([facility])- Primary Human immunodeficiency virus [HIV] disease documented [...] documented as of this encounter Care Teams Plastics Factory Worker Relationship Specialty Start Date End Date Sabrina Jerome NP [address] [place] [address] PCP - General 03/29/21 documented as of this encounter
--- OUTSIDE RECORDS SUMMARY | 2024-07-28 15:08 | XMS_ITS | Encounter Summary ---
Author Organization [facility] Address [address] [place] [address] Care Team Providers Care Injection Specialist Name Role Phone Sabrina Jerome GOVERNOR ASSEMBLER Primary Care Provider [phone] Reason for Visit * Reason Comments Follow-up Encounter Details Date Type Department Care Team (Late st Contact Info) Description 05/31/2024 10:00 EST Telemedicine [facility] Infectious Disease - [address] [address] Lit Pina, DO 111 [facility], [facility] [address] [place] [address] Asymptomatic HIV infection ([facility]) (Primary Dx) Social History Tobacco Use Types [...] Progress Notes * Lit Pina DO - 05/31/2024 1000 EST Division of Infectious Disease Follow up/Progress Note 05/31/2024 TELEMEDICINE VIDEO VISIT Today's visit was provided through telemedicine video conferencing: I have reviewed the appropriateness of using video technology with the patient with regards to today's visit. The location of the patient : Not at home (another medical/non-medical, personal spaces outside [facility]'s Patient location state: Visit Location State: [place] The location of the provider: Office [place] Provider location state: Visit Location State: [place] The following people and their roles were present for today's visit: Appointment Provider: Lit Pina DO I spent a total of 30 minutes on the date of this encounter meeting with the patient and reviewing documentation/coordinating care as described in the above note. No procedures were performed at the time of the visit. Lit Pina, DO The concept of ???Telemedicine?? [...] this service. HPI: Mr. Cedillo is a 54 y.o. male with history significant for HIV who presents with routine follow up. 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 Most recent CD4 done in May 2024 1134, viral load pending Pt on raltegravir 600mg two tabs daily and odefsey. Very good with adherence. 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 Both parties are on ART and have VL < 20. Closed relationship. His partner (Fernando) is followed at [facility] as well and they are typically seen together. Busy with work but doesn't seem overwhelmed. There seems to be plenty of work to do as well. No imminent plans for penitentiary or any travel during the winter. HIV positive (CMS-HCC) ([facility]) Screening colonoscopy 2008 Cryptococcal meninginitis was presenting [...] day (Patient not taking: Reported on 09/17/2017) envuicxxbc-xvkqdywo-sipyuu ala 200-25-25 mg tablet Take 1 Tab [...] Seems comfortable with this regimen. -HIV VL May 2024 pending, CD4 May 2024 1134. He gets 30 days at a time for ART. Mail order pharmacy going OI prophy NA HCV/HB : Natural infection with both, both appeared cleared GC/chlamydia testing: Pt in closed relationship for years, will defer for now -Will see again in 6 months 2) HBV in past, needs to always stay on TAF/3TC based regimen 3) Active smoking; was down down to 3-4 cigs daily but now smoking about a half a pack a day. PCM tried Wellbutrin with patient but it has not seemed to help. 4) Prev med: menactra UTD. Shingrix UTD x 2. Hep A vaccine in distant past. Td 2021, [place] Apr 2019,looked good so repeat in 10 years. Pneumovax 2018, prevnar 2014. COVID 2020, due for booster but patient declines again today and doesn't trust the CDC. Flu shot fall 2023. 5) HTN per PCM, sees a new [...] status documented in this encounter Care Teams Injection Specialist Relationship Specialty Start Date End Date Sabrina Jerome NP [address] [place] [address] PCP - General 03/29/21 documented as of this encounter
--- OUTSIDE RECORDS SUMMARY | 2024-07-28 15:08 | XMS_ITS | Encounter Summary ---
Author Organization [facility] Address [address] [place] [address] Care Team Providers Care Hot Metal Car Operator Name Role Phone None, Provider Primary Care Provider Sabrina Kiran COMBINATION OPERATOR Primary Care Provider Encounter Details Date Type Department Care Team (Late st Contact Info) Description 03/02/2020 Lab Requisition [facility] Pathology & Laboratory Medicine - [address] [address] Outr Resulting Lab, Provider Social History Tobacco [...] Qual Undetected Undetected copies/mL 03/06/2020 14:18 EDT [facility] Blood VENOUS BLOOD / Unknown 03/02/2020 7:38 EDT 03/02/2020 15:47 EDT Narrative [facility] - 03/06/2020 14:18 EDT The quantification range of this assay is 20 IU/mL to 10,000,000 IU/mL. ??Testing was performed on the PADILLA Ampliprep/PDAILLA TaqMan HIV v2.0 ([employer] us Provider Outr Resulting Lab CHEMISTRY & BLOOD GA S ORDERABLES Final Result Performing Organization Address City/State/[facility] Co de Phone Number [facility] [address] [place] [address] documented in this encounter Visit Diagnoses Not on filedocumented in this encounter Care Teams Hot Metal Car Operator Relationship Specialty Start Date End Date None, Provider PCP - General 03/02/20 03/28/21 Sabrina Jerome NP [address] [place] [phone] PCP - General 03/29/21 documented as of this encounter
--- OUTSIDE RECORDS SUMMARY | 2024-07-28 15:08 | XMS_ITS | Encounter Summary ---
Author Organization [facility] Address [address] [place] [address] Care Team Providers Care Hairspring Vibrator Name Role Phone Luz Monreal MD Primary Care Provider Unavail able Reason for Visit * Reason Comments HIV Positive/AIDS Encounter Details Date Type Department Care Team (Late st Contact Info) Description 08/16/2019 9:00 EST Office Visit [facility] Infectious Disease - [address] [address] Lit Pina, DO 111 [facility], [address] [place] [address] Acquired immunodeficiency syndrome ([facility]) (Primary Dx) Social History Tobacco [...] adherence. Exercises with yard work. 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 Partner HIVinfected, not using condoms. Both [...] day (Patient not taking: Reported on 09/17/2017) vrbuqfjqlf-pwttbvbt-khdmbd ala 200-25-25 mg tablet Take 1 Tab [...] A vaccine in distant past. Tdap 2011. [place] Apr 2019, looked good so repeat in [...] disease documented in this encounter Care Teams Hairspring Vibrator Relationship Specialty Start Date End Date Luz Monreal MD PCP - General 02/24/19 03/01/20 documented as of this encounter
--- OUTSIDE RECORDS SUMMARY | 2024-07-28 15:08 | XMS_ITS | Encounter Summary ---
Author Organization [facility] Address [address] [place] [address] Care Team Providers Care Fellmongering Machine Operator Name Role Phone None, Provider Primary Care Provider Unavailabl e Reason for Visit * Reason Comments Follow-up Encounter Details Date Type Department Care Team (Late st Contact Info) Description 02/05/2021 9:30 EDT Telemedicine [facility] Infectious Disease - [address] [address] Lit Pina, DO [address] [facility], [address] [place] [address] Asymptomatic HIV infection (HCC-CMS) (Primary [...] documented in this encounter Progress Notes * GordonDaniLit Filiberto, DO - 02/05/2021 0930 EDT I [...] relationship. ??His partner (Fernando) is followed at [facility] as well. ?? Doing well in [...] day (Patient not taking: Reported on 09/17/2017) vyobffewqs-swunxupe-qvutws ala 200-25-25 mg tablet Take 1 Tab [...] A vaccine in distant past. ??Tdap 2011. ?[place]??Apr 2019, looked good so repeat in 10 [...] status documented in this encounter Care Teams Fellmongering Machine Operator Relationship Specialty Start Date End Date None, Provider PCP - General 03/02/20 03/28/21 documented as of this encounter
--- OUTSIDE RECORDS SUMMARY | 2024-07-28 15:08 | XMS_ITS | Encounter Summary ---
Author Organization [facility] Address [address] [place] [address] Care Team Providers Care Account Processor Name Role Phone Luz Monreal MD Primary Care Provider Unavail able None, Provider Primary Care Provider Sabrina Kiran DECORATIVE ENGRAVER APPRENTICE Primary Care Provider [phone] Encounter Details Date Type Department Care Team (Late st Contact Info) Description 08/11/2019 Lab Requisition [facility] Pathology & Laboratory Medicine - [address] [address] Luz Monreal MD Social History Tobacco Use Types Packs/Day [...] Quant 0 Undetected copies/mL 08/12/2019 15:51 EST [facility] Comment: Not Detected HIV-1 RNA level is <20 copies/mL. This assay cannot accurately quantify HIV-1RNA below this level. Blood VENOUS BLOOD / Unknown 08/11/2019 7:19 EST 08/11/2019 15:21 EST Narrative [facility] - 08/12/2019 15:51 EST The quantification range of this assay is 20 IU/mL to 10,000,000 IU/mL. ??Testing was performed on the PADILLA Ampliprep/PADILLA TaqMan HIV v2.0 ([employer] Luz Monreal MD CHEMISTRY & BLOOD GAS ORDERABL ES Final Result Performing Organization Address City/[facility]/ZIP Co de Phone Number [facility] [address] [place] [address] * (ABNORMAL) IMMUNODEFICIENCY PANEL (08/11/2019 7:19 EST) Pathologist [facility] % CD3 68 62 - 87 % 08/12/2019 16:47 EST [facility] % CD4 29(L) 35 - 63 % 08/12/2019 16:47 EST [facility] % CD8 38(H) 10 - 35 % 08/12/2019 16:47 EST [facility] Absolute CD4 836 329-1,427 cells/uL 08/12/2019 16:47 EST [facility] Blood VENOUS BLOOD / Unknown 08/11/2019 7:19 EST 08/11/2019 15:15 EST Luz Monreal MD IMMUNOLOGY AND SEROLOGY ORDERA BLES Final Result Performing Organization Address City/[facility]/ZIP Co de Phone Number [facility] [address] [place] [address] documented in this encounter Visit Diagnoses Not on filedocumented in this encounter Care Teams Account Processor Relationship Specialty Start Date End Date Luz Monreal MD PCP - General 02/24/19 03/01/20 None, Provider PCP - General 03/02/20 03/28/21 Sabrina Jerome, DECORATIVE ENGRAVER APPRENTICE [address] [place] [address] PCP - General 03/29/21 documented as of this encounter
--- OUTSIDE RECORDS SUMMARY | 2024-07-28 15:08 | XMS_ITS | Referral Summary ---
Author Organization [facility] Address [address] [place] [address] Care Team Providers Care Flight Inspector Name Role Phone Alessandro Jeromea Coni GETTERER Primary Care Provider [phone] Encounters Date Type Department Care Team Description 07/13/2024 Specialty Pharmacy [facility] Specialty Pharmacy [address] [place] [address] Frankie Mitchell [facility] Refill Coordination Outreach for HIV 06/11/2024 Specialty Pharmacy [facility] [address] [place] [address] Frankie Mitchell RPH Refill Coordination Outreach for HIV 05/31/2024 10:00 EST Telemedicine [facility] Infectious Disease - [address] [address] Lit Pina, Asymptomatic HIV infection ([facility]) (Primary Dx) 05/27/2024 Lab Requisition [facility] Pathology & Laboratory Medicine - [facility] [address] [place] [address] Outr Resulting Lab, Provider 05/05/2024 Specialty Pharmacy [facility] [address] [place] [phone] Frankie Mitchell RP Refill Coordination Outreach for HIV from Last 3 Months Allergies Active Allergy Reactions Criticality Noted Date Comments Penicillins Rash 05/14/2010 Sulfa (Sulfonamide Antibiotics) Hives /0 07/2009 Medications acetaminophen (TYLENOL EXTRA STRENGTH) 500 [...] irine-tenofovir alafenam (ODEFSEY) tabletIndications:Ac quired immunodeficiency syndrome ([facility]) Take 1 Tablet by mouth daily. Take with food. 90 Tablet 3 08/21/19 24 Active raltegravir (ISENTRESS HD) 600 mg tabletIndications:Ac quired immunodeficiency syndrome ([facility]) Take 2 Tablets by mouth daily. 180 [...] 06/2015 Quantiferon neg 03/2014 Acquired immunodeficiency syndrome ([facility]) Overview (11/17/2015): HIV/AIDS - h/o cryptococcal meningitis [...] No 07/20/2015 15:13 EST Plan of Treatment Not on file Procedures Procedure Name Priority Date/Time Associated Diagnosis Comments HIV 1 RNA QUANTITATION Routine 05/27/2024 8:50 EST T CELL SUBSETS Routine 05/27/2024 8:50 EST HCV RNA DETECT QUANT Routine 04/02/2023 9:05 EDT from Last 3 Months or Most Recently Relevant to Health Maintenance Results * (ABNORMAL) T CELL SUBSETS (05/27/2024 8:50 EST) % CD3 73 56 - 84 % 05/28/2024 16:46 [facility] % CD4 35 31 - 64 % 05/28/2024 16:46 [facility] % CD8 37 9 - 39 % 05/28/2024 16:46 [facility] Absolute CD3 2,341 840 - 2,669 Cells/uL 05/28/2024 16:46 [facility] Absolute CD4 1,134 488 - 1,734 Cells/uL 05/28/2024 16:46 [facility] Absolute CD8 1,194(H) 154 - 1,097 Cells/uL 05/28/2024 16:46 [facility] 4/8 Ratio 0.95 >=0.90 05/28/2024 16:46 EST [facility] Blood VENOUS BLOOD / Unknown 05/27/2024 8:50 EST 05/27/2024 21:16 EST us Provider Outr Resulting Lab IMMUNOLOGY AND SEROL OGY ORDERABLES Final Result Performing Organization Address [facility]/ZIP Co de Phone Number [facility] [address] [place] [address] * (ABNORMAL) HIV 1 RNA QUANTITATION (05/27/2024 8:50 EST) [facility] HIV RNA Detection, Qual Detected( A) Undetected copies/mL 05/31/2024 16:05 EST [facility] HIV 1 RNA Quant <20(H) Undetected copies/mL 05/31/2024 16:05 EST [facility] Comment:HIV-1 RNA level is < 20 copies/mL. This assay cannot accurately quantify HIV-1RNA below this level. Blood VENOUS BLOOD / Unknown 05/27/2024 8:50 EST 05/27/2024 21:18 EST Narrative [facility] - 05/31/2024 16:05 EST The quantification range of this assay is 20 IU/mL to 10,000,000 IU/mL. ??Testing was performed using the Lucy HIV test ([employer] with the lucy 6800 System. us Provider Outr Resulting Lab CHEMISTRY & BLOOD GA S ORDERABLES Final Result Performing Organization Address [facility]/ZIP Co de Phone Number [facility] [address] [place], [place] [id number] * HCV RNA DETECT QUANT (04/02/2023 9:05 EDT) [facility] HCV RNA Qualitative Undetected Undetected 04/03/2023 13:36 EDT [facility] Blood VENOUS BLOOD / Unknown 04/02/2023 9:05 EDT 04/02/2023 17:16 EDT Narrative [facility] - 04/03/2023 13:36 EDT The quantification range of this assay is 15 IU/mL to 100,000,000 IU/mL. Testing was performed using the Lucy HCV test ([employer] with the lucy 6800 System. us Provider Outr Resulting Lab CHEMISTRY & BLOOD GA S ORDERABLES Final Result [facility] [address] [place] [address] from Last 3 Months or Most Recently Relevant to Health Maintenance Insurance [place]ICA[place] MEDICARE [employer] [place] Care Teams Flight Inspector Relationship Specialty Start Date End Date Sabrina Jerome NP [address] [place] [phone] PCP - General 03/29/21
--- OUTSIDE RECORDS SUMMARY | 2024-07-28 15:08 | XMS_ITS | Encounter Summary ---
Author Organization [facility] Address [address] [place] [address] Care Team Providers Care Senior Fund Accountant Name Role Phone Sabrina Jerome GEOGRAPHIC INFORMATION SYSTEM ANALYST Primary Care Provider [phone] Encounter Details Date Type Department Care Team (Latest Contact Info) Description 11/28/2023 Specialty Pharmacy [facility] Specialty Pharmacy [address] [place], [place] [phone] Frankie Mitchell [facility] [...] filedocumented in this encounter Care Teams Senior Fund Accountant Relationship Specialty Start Date End Date Sabrina Jerome, GEOGRAPHIC INFORMATION SYSTEM ANALYST [address] [place] [address] PCP - General 03/29/21 documented as of this encounter
--- OUTSIDE RECORDS SUMMARY | 2024-07-28 15:08 | XMS_ITS | Encounter Summary ---
Author Organization [facility] Address [address] [place] [address] Care Team Providers Care Sanitation Supervisor Name Role Phone Sabrina Jerome BOOK EDITOR Primary Care Provider [phone] Reason for Visit * Reason Comments Follow-up Encounter Details Date Type Department Care Team (Late st Contact Info) Description 04/08/2022 9:00 EDT Telemedicine [facility] Infectious Disease - [address] [address] Lit Pina, DO 111 [facility], [address] [place] [phone] Asymptomatic HIV infection (HCC) (Primary Dx) Social [...] relationship. ??His partner (Fernando) is followed at [facility] as well and they are typically seen [...] day (Patient not taking: Reported on 09/17/2017) edmytepgpq-axgktmpq-mqlpaa ala 200-25-25 mg tablet Take 1 Tab [...] ??Tdap 2011, needs booster (will get at [facility] next month). ?[place]??Apr 2019, looked good so repeat in 10 years.?Pneumovax 2018, prevnar 2014. COVID 2020, due for booster but patient declines. Flu shotOct 2021 ?? 5) HTN per [facility], sees Sabrina Jerome with good regularity. [...] status documented in this encounter Care Teams Sanitation Supervisor Relationship Specialty Start Date End Date Sabrina Jerome NP [address] [place] [address] PCP - General 03/29/21 documented as of this encounter
--- OUTSIDE RECORDS SUMMARY | 2024-07-28 15:08 | XMS_ITS | Encounter Summary ---
Author Organization [facility] Address [address] [place] [address] Care Team Providers Care Shingle Grader Name Role Phone Sabrina Jerome PLASTIC JIG AND FIXTURE BUILDER Primary Care Provider [phone] Encounter Details Date Type Department Care Team (Latest Contact Info) Description 12/22/2023 Specialty Pharmacy [facility] Specialty [facility]acy [address] [place], [place] [address] Frankie Mitchell [facility] Refill Coordination Outreach for HIV [...] on filedocumented in this encounter Care Teams Shingle Grader Relationship Specialty Start Date End Date Sabrina Jerome NP [address] [place] [address] PCP - General 03/29/21 documented as of this encounter
--- OUTSIDE RECORDS SUMMARY | 2024-07-28 15:08 | XMS_ITS | Encounter Summary ---
Author Organization [facility] Address [address] [place] [address] Care Team Providers Care Stock Lifter Name Role Phone Sabrina Jerome NETWORK ARCHITECT Primary Care Provider [phone] Encounter Details Date Type Department Care Team (Latest Contact Info) Description 03/03/2024 Specialty Pharmacy [facility] Special[facility]acy [address] [place], [place] [phone] Frankie Mitchell [facility] Refill Coordination Outreach for [...] on filedocumented in this encounter Care Teams Stock Lifter Relationship Specialty Start Date End Date Sabrina Jerome NP [address] [place] [address] PCP - General 03/29/21 documented as of this encounter
--- OUTSIDE RECORDS SUMMARY | 2024-07-28 15:08 | XMS_ITS | Encounter Summary ---
Author Organization [facility] Address [address] [place] [address] Care Team Providers Care Lending Advisor Name Role Phone None, Provider Primary Care Provider Unavailabl e Reason for Visit * Reason Comments HIV Positive/AIDS Encounter Details Date Type Department Care Team (Late st Contact Info) Description 07/31/2020 9:30 EST Telemedicine [facility] Infectious Disease - [address] [id number] Lit Pina, DO [address] [facility], [address] 5 [place] [address] Asymptomatic HIV infection (HCC-CMS) (Primary [...] documented in this encounter Progress Notes * [place]agitLit roy, DO - 07/31/2020 0930 EST I [...] 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 Both parties are on ART and have VL <??20. ?? Closed relationship. His partner is followed at [facility] as well. ?? Doing well [...] day (Patient not taking: Reported on 09/17/2017) zheewuqvpw-bvtxqixk-aphroj ala 200-25-25 mg tablet Take 1 Tab [...] A vaccine in distant past. ??Tdap 2011. ?[place]??Apr 2019, looked good so repeat in 10 [...] status documented in this encounter Care Teams Lending Advisor Relationship Specialty Start Date End Date None, Provider PCP - General 03/02/20 03/28/21 documented as of this encounter
--- OUTSIDE RECORDS SUMMARY | 2024-07-28 15:08 | XMS_ITS | Encounter Summary ---
Author Organization [facility] Address [address] [place] [address] Care Team Providers Care Irrigation Pump Installer Name Role Phone Sabrina Jerome MUSICAL INSTRUMENT MAKER OR REPAIRER Primary Care Provider [phone] Encounter Details Date Type Department Care Team (Late st Contact Info) Description 05/27/2024 Lab Requisition [facility] Pathology & Laboratory Medicine - [address] [address] Outr Resulting Lab, Provider Social History Tobacco [...] Associated Diagnosis Comments T CELL SUBSETS Routine 05/27/2024 8:50 EST HIV 1 RNA QUANTITATION Routine 05/27/2024 8:50 EST documented in this encounter Results * (ABNORMAL) HIV 1 RNA QUANTITATION (05/27/2024 8:50 EST) Pathologist [facility] HIV RNA Detection, Qual Detected( A) Undetected copies/mL 05/31/2024 16:05 [facility] HIV 1 RNA Quant <20(H) Undetected copies/mL 05/31/2024 16:05 [facility] Comment:HIV-1 RNA level is < 20 copies/mL. This assay cannot accurately quantify HIV-1RNA below this level. Blood VENOUS BLOOD / Unknown 05/27/2024 8:50 EST 05/27/2024 21:18 EST Narrative [facility] - 05/31/2024 16:05 EST The quantification range of this assay is 20 IU/mL to 10,000,000 IU/mL. ??Testing was performed using the Lucy HIV test ([employer] with the lucy 6800 System. us Provider Outr Resulting Lab CHEMISTRY & BLOOD GA S ORDERABLES Final Result [facility] [address] [place] [address] * (ABNORMAL) T CELL SUBSETS (05/27/2024 8:50 EST) [facility] % CD3 73 56 - 84 % 05/28/2024 16:46 [facility] % CD4 35 31 - 64 % 05/28/2024 16:46 [facility] % CD8 37 9 - 39 % 05/28/2024 16:46 [facility] Absolute CD3 2,341 840 - 2,669 Cells/uL 05/28/2024 16:46 [facility] Absolute CD4 1,134 488 - 1,734 Cells/uL 05/28/2024 16:46 [facility] Absolute CD8 1,194(H) 154 - 1,097 Cells/uL 05/28/2024 16:46 EST [facility] 4/8 Ratio 0.95 >=0.90 05/28/2024 16:46 EST [facility] Blood VENOUS BLOOD / Unknown 05/27/2024 8:50 EST 05/27/2024 21:16 EST us Provider Outr Resulting Lab IMMUNOLOGY AND SEROL OGY ORDERABLES Final Result [facility] [address] [place], [place] [phone] documented in this encounter Visit Diagnoses Not on filedocumented in this encounter Care Teams Irrigation Pump Installer Relationship Specialty Start Date End Date Sabrina Jerome NP [address] [place] [address] PCP - General 03/29/21 documented as of this encounter
--- OUTSIDE RECORDS SUMMARY | 2024-07-28 15:08 | XMS_ITS | Encounter Summary ---
Author Organization [facility] Address [address] [place] [address] Care Team Providers Care Import/Export Clerk Name Role Phone Sabrina Jerome OCCUPATIONAL PSYCHOLOGIST Primary Care Provider [phone] Reason for Visit * Reason Comments Follow-up Encounter Details Date Type Department Care Team (Late st Contact Info) Description 11/10/2023 9:30 EDT Telemedicine [facility] Infectious Disease - [address] [address] Lit Pina, DO 111 [facility], [address] [place] [phone] Asymptomatic HIV infection ([facility]) (Primary Dx) Social History Tobacco Use [...] lives) Patient location state: Visit Location State: [place] The location of the provider: Office-BVT Provider location state: Visit Location State: [place] The following people and their roles were [...] do as well. No imminent plans for assisted. 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 Td 2021, [place] Apr 2019,looked good so repeat in 10 [...] status documented in this encounter Care Teams Import/Export Clerk Relationship Specialty Start Date End Date Sabrina Jerome NP [address] [place] [phone] PCP - General 03/29/21 documented as of this encounter
--- OUTSIDE RECORDS SUMMARY | 2024-07-28 15:08 | XMS_ITS | Encounter Summary ---
Author Organization [facility] Address [address] [place] [address] Care Team Providers Care Java Sdet Name Role Phone Sabrina Jerome ENVELOPE FOLD OPERATOR Primary Care Provider [phone] Encounter Details Date Type Department Care Team (Latest Contact Info) Description 07/13/2024 Specialty Pharmacy [facility] [address] [place], [place] [address] Frankie Mitchell [facility] Refill Coordination Outreach for HIV Social History [...] on filedocumented in this encounter Care Teams Java Sdet Relationship Specialty Start Date End Date Sabrina Jerome NP [address] [place] [address] PCP - General 03/29/21 documented as of this encounter
--- OUTSIDE RECORDS SUMMARY | 2024-07-28 15:08 | XMS_ITS | Encounter Summary ---
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 Both parties are on ART and have VL < 20. ?? Closed relationship. His partner is followed at [facility] as well. ?? Doing well [...] day (Patient not taking: Reported on 09/17/2017) tdnlwzxjeg-zhchswzp-dpueyk ala 200-25-25 mg tablet Take 1 Tab [...] ??Hep A vaccine indistant past. ??Tdap 2011. ?[place] Apr 2019, looked good so repeat in [...] status documented in this encounter Care Teams Floor Coverings Salesperson Relationship Specialty Start Date End Date None, Provider PCP - General 03/02/20 03/28/21 documented as of this encounter
--- OUTSIDE RECORDS SUMMARY | 2024-07-28 15:08 | XMS_ITS | Encounter Summary ---
Author Organization [facility] Address [address] [place] [address] Care Team Providers Care Landscape Nurseryman Name Role Phone None, Provider Primary Care Provider Sabrina Kiran AVIATION ELECTRICAL TECHNICIAN Primary Care Provider Encounter Details Date Type Department Care Team (Late st Contact Info) Description 02/01/2021 Lab Requisition [facility] Pathology & Laboratory Medicine - [facility] [address] [place] [address] Outr Resulting Lab, Provider Social History Tobacco [...] Qual Undetected Undetected copies/mL 02/05/2021 15:08 EDT [facility] Blood VENOUS BLOOD / Unknown 02/01/2021 8:29 EDT 02/01/2021 20:29 EDT Narrative [facility] - 02/05/2021 15:08 EDT The quantification range of this assay is 20 IU/mL to 10,000,000 IU/mL. ??Testing was performed on the PADILLA Ampliprep/PADILLA TaqMan HIV v2.0 ([employer] us Provider Outr Resulting Lab CHEMISTRY & BLOOD GA S ORDERABLES Final Result [facility] [address] [place] [address] * (ABNORMAL) T CELL SUBSETS (02/01/2021 8:29 EDT) [facility] % CD3 70 56 - 84 % 02/04/2021 19:19 [facility] % CD4 31 31 - 64 % 02/04/2021 19:19 [facility] % CD8 38 9 - 39 % 02/04/2021 19:19 [facility] Absolute CD3 1,607 840-2,669 Cells/uL 02/04/2021 19:19 [facility] Absolute CD4 717 488-1,734 Cells/uL 02/04/2021 19:19 [facility] Absolute CD8 878 154-1,097 Cells/uL 02/04/2021 19:19 [facility] 10/19 Ratio 0.82(L) >=0.90 02/04/2021 19:19 EDT [facility] Blood VENOUS BLOOD / Unknown 02/01/2021 8:29 EDT 02/01/2021 20:29 EDT us Provider Outr Resulting Lab IMMUNOLOGY AND SEROL OGY ORDERABLES Final Result Performing Organization Address City/State/[facility] Co de Phone Number [facility] [address] [place] [address] documented in this encounter Visit Diagnoses Not on filedocumented in this encounter Care Teams Landscape Nurseryman Relationship Specialty Start Date End Date None, Provider PCP - General 03/02/20 03/28/21 Sabrina Jerome, SOM [address] [place] [phone] PCP - General 03/29/21 documented as of this encounter
--- OUTSIDE RECORDS SUMMARY | 2024-07-28 15:08 | XMS_ITS | Encounter Summary ---
Author Organization [facility] Address [address] [place] [address] Care Team Providers Care Marriage Performer Name Role Phone Luz Monreal MD Primary Care Provider Unavail able None, Provider Primary Care Provider Sabrina Kiran CONTROL SYSTEMS SPECIALIST Primary Care Provider [phone] Encounter Details Date Type Department Care Team (Late st Contact Info) Description 08/12/2019 Lab Requisition [facility] Pathology & Laboratory Medicine - [address] [address] Luz Monreal MD Social History Tobacco Use [...] Quantiferon Interpretation Negative Negative 08/13/2019 13:52 EST [facility] Comment: No interferon-gamma response [...] minus Nil 0.02 IU/ml 08/13/19 13:52 EST [facility] TB2 Ag minus Nil 0.03 IU/mL 08/13/19 13:52 EST [facility] Blood VENOUS BLOOD / Unknown 08/11/2019 7:19 EST 08/12/2019 16:26 EST Narrative [facility] - 08/13/2019 13:52 EST Results were obtained with the [employer] QuantiFERON-TB Gold Plus JOSEFINA. Luz Monreal MD CHEMISTRY & BLOOD GAS ORDERABL ES Final Result Performing Organization Address City/State/[facility] Co de Phone Number [facility] [address] [place] [address] documented in this encounter Visit Diagnoses Not on filedocumented in this encounter Care Teams Marriage Performer Relationship Specialty Start Date End Date Luz Monreal MD PCP - General 02/24/19 03/01/20 None, Provider PCP - General 03/02/20 03/28/21 Sabrina Jerome NP [address] [place] [phone] PCP - General 03/29/21 documented as of this encounter
--- OUTSIDE RECORDS SUMMARY | 2024-07-28 15:08 | XMS_ITS | Encounter Summary ---
Author Organization [facility] Address [address] [place] [address] Care Team Providers Care Securities Vault Supervisor Name Role Phone Sabrina Jerome PILE DRIVER Primary Care Provider [phone] Encounter Details Date Type Department Care Team (Late st Contact Info) Description 04/02/2023 Lab Requisition [facility] Pathology & Laboratory Medicine - [address] [address] Outr Resulting Lab, Provider Social History Tobacco [...] RNA Qualitative Undetected Undetected 04/03/2023 13:36 EDT [facility] Blood VENOUS BLOOD / Unknown 04/02/2023 9:05 EDT 04/02/2023 17:16 EDT Narrative [facility] - 04/03/2023 13:36 EDT The quantification range of this assay is 15 IU/mL to 100,000,000 IU/mL. Testing was performed using the Lucy HCV test ([employer] with the lucy 6800 System. us Provider Outr Resulting Lab CHEMISTRY & BLOOD GA S ORDERABLES Final Result [facility] [address] [place] [address] documented in this encounter Visit Diagnoses Not on filedocumented in this encounter Care Teams Securities Vault Supervisor Relationship Specialty Start Date End Date Sabrina Jerome NP [address] [place] [address] PCP - General 03/29/21 documented as of this encounter
--- OUTSIDE RECORDS SUMMARY | 2024-07-28 15:08 | XMS_ITS | Clinical Summary ---
Author Organization [facility] Address [address] [place] [address] Care Team Providers Care Pharmacy Technician Infusion Name Role Phone Sabrina Jerome RENEWABLE ENERGY TECHNICIAN Primary Care Provider [phone] Allergies Active Allergy Reactions Criticality Noted Date [...] 06/2015 Quantiferon neg 03/2014 Acquired immunodeficiency syndrome ([facility]) Overview (11/17/2015): HIV/AIDS - h/o cryptococcal [...] RAL/3TC/TDF/ATVr Chronic active type B viral hepatitis ([facility]) 01/25/2010 Chronic hepatitis C ([facility]) 01/25/2010 Overview (11/17/2015): Never treated HCV RNA not detectable Unable to genotype 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 Alopecia 01/25/2010 Encounters Date Type Department Care Team Description 07/13/2024 Specialty Pharmacy [facility] [address] [place] [address] Frankie Mitchell, [facility] Refill Coordination Outreach for HIV 06/11/2024 Specialty Pharmacy [facility] [address] [place] [address] Frankie Mitchell [facility] Refill Coordination Outreach for HIV 05/31/2024 10:00 EST Telemedicine [facility] Infectious Disease - [address] [address] Lit Pina DO Asymptomatic HIV infection ([facility]) (Primary Dx) 05/27/2024 Lab Requisition [facility] Pathology & Laboratory Medicine - [facility] [address] [place] [address] Outr Resulting Lab, Provider 05/05/2024 Specialty Pharmacy [facility] [address] [place] [address] Frankie Mitchell [facility] Refill Coordination Outreach for HIV from [...] Date Comments Screening colonoscopy 2009 HIV positive ([facility]) Social History Tobacco Use Types Packs/Day [...] 73 56 - 84 % 05/28/2024 16:46 [facility] % CD4 35 31 - 64 % 05/28/2024 16:46 [facility] % CD8 37 9 - 39 % 05/28/2024 16:46 [facility] Absolute CD3 2,341 840 - 2,669 Cells/uL 05/28/2024 16:46 [facility] Absolute CD4 1,134 488 - 1,734 Cells/uL 05/28/2024 16:46 [facility] Absolute CD8 1,194(H) 154 - 1,097 Cells/uL 05/28/2024 16:46 EST [facility] 4/8 Ratio 0.95 >=0.90 05/28/2024 16:46 EST [facility] Blood VENOUS BLOOD / Unknown 05/27/2024 8:50 EST 05/27/2024 21:16 EST us Provider Outr Resulting Lab IMMUNOLOGY AND SEROL OGY ORDERABLES Final Result Performing Organization Address City/[facility]/ZIP Co de Phone Number [facility] [address] [place] [address] * (ABNORMAL) HIV 1 RNA QUANTITATION (05/27/2024 8:50 EST) [facility] HIV RNA Detection, Qual Detected( A) Undetected copies/mL 05/31/2024 16:05 EST [facility] HIV 1 RNA Quant <20(H) Undetected copies/mL 05/31/2024 16:05 EST [facility] Comment:HIV-1 RNA level is < 20 copies/mL. This assay cannot accurately quantify HIV-1RNA below this level. Blood VENOUS BLOOD / Unknown 05/27/2024 8:50 EST 05/27/2024 21:18 EST Narrative [facility] - 05/31/2024 16:05 EST The quantification range of this assay is 20 IU/mL to 10,000,000 IU/mL. ??Testing was performed using the Lucy HIV test (Jaleel [employer] with the lucy 6800 System. us Provider Outr Resulting Lab CHEMISTRY & BLOOD GA S ORDERABLES Final Result Performing Organization Address [facility]/ZIP Co de Phone Number [facility] [address] [place], [place] [phone] * HCV RNA DETECT QUANT (04/02/2023 9:05 EDT) [facility] HCV RNA Qualitative Undetected Undetected 04/03/2023 13:36 EDT [facility] Blood VENOUS BLOOD / Unknown 04/02/2023 9:05 EDT 04/02/2023 17:16 EDT Narrative [facility] - 04/03/2023 13:36 EDT The quantification range of this assay is 15 IU/mL to 100,000,000 IU/mL. Testing was performed using the Lucy HCV test ([employer] with the lucy 6800 System. us Provider Outr Resulting Lab CHEMISTRY & BLOOD GA S ORDERABLES Final Result [facility] [address] [place] [address] from Last 3 Months or Most Recently Relevant to Health Maintenance Insurance [place] Care Teams Pharmacy Technician Infusion Relationship Specialty Start Date End Date Sabrina Jerome NP [address] [place] [phone] PCP - General 03/29/21
--- OUTSIDE RECORDS SUMMARY | 2024-07-28 15:08 | XMS_ITS | Encounter Summary ---
Author Organization [facility] Address [address] [place] [address] Care Team Providers Care Supervisor Inspection Name Role Phone Sabrina Jerome CORPORATE TREASURY ANALYST Primary Care Provider [phone] Reason for Visit * Reason Comments Follow-up Encounter Details Date Type Department Care Team (Late st Contact Info) Description 04/07/2023 9:30 EDT Telemedicine [facility] Infectious Disease [address] [address] Lit Pina, DO 111 [facility], [facility] [address] [place] [address] Asymptomatic HIV infection (HCC-CMS) (Primary [...] conferencing: The location of the patient : [facility] The location of the provider: OfficeBVT [...] <??20. ?Closed relationship. ??His partner??(Fernando)??is followed at [facility] as well??and they are typically [...] day (Patient not taking: Reported on 09/17/2017) wwmxsjdycw-ojphpkit-cgytme ala 200-25-25 mg tablet Take 1 Tab [...] ?Hep A vaccine in distant past. ??Td 2021,?[place]??Apr 2019, looked good so repeat in 10 [...] Diagnoses Diagnosis Asymptomatic HIV infection ([facility])- Primary Asymptomatic human immunodeficiency virus (HIV) infection status documented in this encounter Care Teams Supervisor Inspection Relationship Specialty Start Date End Date Sabrina Jerome NP [address] [place] [address] PCP - General 03/29/21 documented as of this encounter
--- OUTSIDE RECORDS SUMMARY | 2024-07-28 15:08 | XMS_ITS | Encounter Summary ---
Author Organization [facility] Address [address] [place] [address] Care Team Providers Care Java J2Ee Application Developer Name Role Phone None, Provider Primary Care Provider Sabrina Kiran VENEER MANUFACTURER Primary Care Provider [phone] Encounter Details Date Type Department Care Team (Late st Contact Info) Description 07/28/2020 Lab Requisition [facility] Pathology & Laboratory Medicine - [facility] [address] [place] [address] Outr Resulting Lab, Provider Social History Tobacco [...] RNA Qualitative Undetected Undetected 07/31/2020 14:44 EST [facility] Blood VENOUS BLOOD / Unknown 07/27/2020 16:30 EST 07/28/2020 17:29 EST Narrative [facility] - 07/31/2020 14:44 EST The quantification range of this assay is 15 IU/mL to 100,000,000 IU/mL. ??Testing was performed on the PADILLA Ampliprep/PADILLA TaqMan HCV v2.0 ([employer] us Provider Outr Resulting Lab CHEMISTRY & BLOOD GA S ORDERABLES Final Result Performing Organization Address City/State/[facility] Co de Phone Number [facility] [address] [place] [address] documented in this encounter Visit Diagnoses Not on filedocumented in this encounter Care Teams Java J2Ee Application Developer Relationship Specialty Start Date End Date None, Provider PCP - General 03/02/20 03/28/21 Sabrina Jerome NP [address] [place] [phone] PCP - General 03/29/21 documented as of this encounter
--- OUTSIDE RECORDS SUMMARY | 2024-07-28 15:08 | XMS_ITS | Encounter Summary ---
Author Organization [facility] Address [address] [place] [address] Care Team Providers Care Resort Desk Clerk Name Role Phone Sabrina Jerome MINE MANAGER Primary Care Provider Encounter Details Date Type Department Care Team (Latest Contact Info) Description 05/05/2024 Specialty Pharmacy [facility] [address] [place], [place] [phone] Frankie Mitchell [facility] [...] on filedocumented in this encounter Care Teams Resort Desk Clerk Relationship Specialty Start Date End Date Sabrina Jerome NP [address] [place] [phone] PCP - General 03/29/21 documented as of this encounter
--- OUTSIDE RECORDS SUMMARY | 2024-07-28 15:08 | XMS_ITS | Encounter Summary ---
Author Organization [facility] Address [address] [place] [address] Care Team Providers Care Apparel Stock Checker Name Role Phone Sabrina Jerome PROJECT MANAGEMENT DIRECTOR Primary Care Provider [phone] Encounter Details Date Type Department Care Team (Late st Contact Info) Description 07/23/2021 Lab Requisition [facility] Pathology & Laboratory Medicine - [address] [address] Outr Resulting Lab, Provider Social History Tobacco [...] HIV 1 RNA QUANTITATION (07/23/2021 7:45 EST) [facility] HIV RNA Detection, Qual Undetected Undetected copies/mL 07/26/2021 13:[address] [facility] Blood VENOUS BLOOD / Unknown 07/23/2021 7:45 EST 07/23/2021 16:30 EST [facility] LABORATORY SERVICES - 07/26/2021 13:09 EST New platform in use 02/05/2021 The quantification range of this assay is 20 IU/mL to 10,000,000 IU/mL. ??Testing was performed using the Lucy HIV test ([employer] with the lucy Aloompa0 System. us Provider Outr Resulting Lab CHEMISTRY & BLOOD GA S ORDERABLES Final Result [facility] [address] [place] [address] * (ABNORMAL) T CELL SUBSETS (07/23/2021 7:45 EST) [facility] % CD3 69 56 - 84 % 07/24/2021 14:20 [facility] % CD4 31 31 - 64 % 07/24/2021 14:20 [facility] % CD8 38 9 - 39 % 07/24/2021 14:20 [facility] Absolute CD3 2,032 840-2,669 Cells/uL 07/24/2021 14:20 [facility] Absolute CD4 904 488-1,734 Cells/uL 07/24/2021 14:20 [facility] Absolute CD8 1,111(H) 154-1,097 Cells/uL 07/24/2021 14:20 [facility] 4/8 Ratio 0.81(L) >=0.90 07/24/2021 14:[address] [facility] Blood VENOUS BLOOD / Unknown 07/23/2021 7:45 EST 07/24/2021 8:42 EST us Provider Outr Resulting Lab IMMUNOLOGY AND SEROL OGY ORDERABLES Final Result Performing Organization Address City/State/[facility] Co de Phone Number [facility] [address] [place] [address] documented in this encounter Visit Diagnoses Not on filedocumented in this encounter Care Teams Apparel Stock Checker Relationship Specialty Start Date End Date Sabrina Jerome, SOM [address] [place] [address] PCP - General 03/29/21 documented as of this encounter
--- OUTSIDE RECORDS SUMMARY | 2024-07-28 15:08 | XMS_ITS | Encounter Summary ---
Author Organization [facility] Address [address] [place] [address] Care Team Providers Care Hydrostatic Tester Name Role Phone Sabrina Jerome CBX OPERATOR Primary Care Provider [phone] Reason for Visit * Reason Comments Other Encounter Details Date Type Department Care Team (Late st Contact Info) Description 01/04/2022 [facility] Infectious Disease [address] [address] Lit Pina, DO 111 [facility], [address] [place] [address] Other Social History Tobacco Use [...] on filedocumented in this encounter Care Teams Hydrostatic Tester Relationship Specialty Start Date End Date Sabrina Jerome, SOM [address] [place] [address] PCP - General 03/29/21 documented as of this encounter
--- OUTSIDE RECORDS SUMMARY | 2024-07-28 15:08 | XMS_ITS | Encounter Summary ---
Author Organization [facility] Address [address] [place] [address] Care Team Providers Care Cardroom Drawing Runner Name Role Phone Sabrina Jerome CHEMISTRY LABORATORY TECHNICIAN Primary Care Provider [phone] Encounter Details Date Type Department Care Team (Late st Contact Info) Description 03/28/2022 Lab Requisition [facility] Pathology & Laboratory Medicine - [address] [address] Outr Resulting Lab, Provider Social History Tobacco [...] HIV 1 RNA QUANTITATION (03/28/2022 7:40 EDT) [facility] HIV RNA Detection, Qual Undetected Undetected copies/mL 04/01/2022 13:45 EDT [facility] Blood VENOUS BLOOD / Unknown 03/28/2022 7:40 EDT 03/28/2022 17:16 EDT Narrative [facility] - 04/01/2022 13:45 EDT The quantification range of this assay is 20 IU/mL to 10,000,000 IU/mL. ??Testing was performed using the Lucy HIV test ([employer] with the lucy Salezeo0 System. us Provider Outr Resulting Lab CHEMISTRY & BLOOD GA S ORDERABLES Final Result [facility] [address] [place] [address] * (ABNORMAL) T CELL SUBSETS (03/28/2022 7:40 EDT) [facility] % CD3 72 56 - 84 % 03/29/2022 16:47 [facility] % CD4 33 31 - 64 % 03/29/2022 16:47 [facility] % CD8 39 9 - 39 % 03/29/2022 16:47 [facility] Absolute CD3 2,107 840-2,669 Cells/uL 03/29/2022 16:47 [facility] Absolute CD4 957 488-1,734 Cells/uL 03/29/2022 16:47 [facility] Absolute CD8 1,125(H) 154-1,097 Cells/uL 03/29/2022 16:47 [facility] 4/8 Ratio 0.85(L) >=0.90 03/29/2022 16:47 EDT [facility] Blood VENOUS BLOOD / Unknown 03/28/2022 7:40 EDT 03/28/2022 17:16 EDT us Provider Outr Resulting Lab IMMUNOLOGY AND SEROL OGY ORDERABLES Final Result Performing Organization Address City/State/[facility] Co de Phone Number [facility] [address] [place] [address] documented in this encounter Visit Diagnoses Not on filedocumented in this encounter Care Teams Cardroom Drawing Runner Relationship Specialty Start Date End Date Sabrina Jerome NP [address] [place] [address] PCP - General 03/29/21 documented as of this encounter
--- OUTSIDE RECORDS SUMMARY | 2024-07-28 15:08 | XMS_ITS | Encounter Summary ---
Author Organization [facility] Address [address] [place] [address] Care Team Providers Care Bilingual Receptionist Name Role Phone Sabrina Jerome MAINTENANCE MAN Primary Care Provider [phone] Reason for Visit * Reason Comments Medications Refill Encounter Details Date Type Department Care Team (Late st Contact Info) Description 04/22/2022 Refill [facility] Infectious Disease - [address] [address] Lit Pina, DO 111 [facility], [facility] 5 [place] [phone] Medications Refill Social History Tobacco Use Types [...] as of this encounter Care Teams Bilingual Receptionist Relationship Specialty Start Date End Date Sabrina Jerome NP [address] [place] [phone] PCP - General 03/29/21 documented as of this encounter
--- OUTSIDE RECORDS SUMMARY | 2024-07-28 15:08 | XMS_ITS | Encounter Summary ---
Author Organization [facility] Address [address] [place] [address] Care Team Providers Care Procurement Agent Name Role Phone Sabrina Jerome MOLD DUMPER Primary Care Provider [phone] Encounter Details Date Type Department Care Team (Late st Contact Info) Description 09/19/2022 Lab Requisition [facility] Pathology & Laboratory Medicine - [address] [address] Outr Resulting Lab, Provider Social History Tobacco [...] RNA Qualitative Undetected Undetected 09/20/2022 13:04 EST [facility] Blood VENOUS BLOOD / Unknown 09/19/2022 11:03 EST 09/19/2022 21:55 EST Narrative [facility] - 09/20/2022 13:04 EST The quantification range of this assay is 15 IU/mL to 100,000,000 IU/mL. Testing was performed using the Lucy HCV test ([employer] with the lucy Skinfix0 System. us Provider Outr Resulting Lab CHEMISTRY & BLOOD GA S ORDERABLES Final Result [facility] [address] [place] [address] documented in this encounter Visit Diagnoses Not on filedocumented in this encounter Care Teams Procurement Agent Relationship Specialty Start Date End Date Sabrina Jerome NP [address] [place] [phone] PCP - General 03/29/21 documented as of this encounter
--- OUTSIDE RECORDS SUMMARY | 2024-07-28 15:08 | XMS_ITS | Encounter Summary ---
Author Organization [facility] Address [address] [place] [address] Care Team Providers Care Operating System Designer Name Role Phone Sabrina Jerome PLATINUMSMITH Primary Care Provider [phone] Encounter Details Date Type Department Care Team (Latest Contact Info) Description 04/07/2024 Specialty Pharmacy [facility] [address] [place], [place] [address] Frankie Mitchell [facility] Refill Coordination Outreach for HIV [...] on filedocumented in this encounter Care Teams Operating System Designer Relationship Specialty Start Date End Date Sabrina Jerome NP [address] [place] [address] PCP - General 03/29/21 documented as of this encounter
--- OUTSIDE RECORDS SUMMARY | 2024-07-28 15:08 | XMS_ITS | Encounter Summary ---
Author Organization [facility] Address [address] [place] [address] Care Team Providers Care Chief Meter Reader Name Role Phone Sabrina Jerome IN SHOP SERVICE TECHNICIAN Primary Care Provider [phone] Encounter Details Date Type Department Care Team (Latest Contact Info) Description 06/11/[address] [facility] [address] [place], [place] [address] Frankie Mitchell [facility] Refill [...] filedocumented in this encounter Care Teams Chief Meter Reader Relationship Specialty Start Date End Date Sabrina Jerome NP [address] [place] [address] PCP - General 03/29/21 documented as of this encounter
--- OUTSIDE RECORDS SUMMARY | 2024-07-28 15:08 | XMS_ITS | Encounter Summary ---
Author Organization [facility] Address [address] [place] [address] Care Team Providers Care Irrigation Tax Assessor Collector Name Role Phone Luz Monreal MD Primary Care Provider Unavail able None, Provider Primary Care Provider Sabrina Kiran PLATE MILL HAND Primary Care Provider [phone] Encounter Details Date Type Department Care Team (Late st Contact Info) Description 06/14/2019 Lab Requisition [facility] Pathology & Laboratory Medicine - [address] [address] Santino Leal, [address] [place], [place] [id number] Encounter for other general examination Social History [...] comment. - No dysplasia identified. 06/18/2019 15:45 [facility] at 1545 Diagnosis Comment Deeper sections have been examined. 06/18/2019 15:45 [facility] Clinical History History of HIV infection K13.70. Left soft palate lesion 06/18/2019 15:45 [facility] Attestation There was significant resident/fellow involvement in the diagnostic evaluation of this case. By the signature below, the attending physician certifies that they have personally conducted a gross and/or microscopic examination of the described specimens and rendered or confirmed the above diagnosis. 06/18/2019 15:45 [facility] at 1545 Gross Description A. Received in formalin labelled with proper patient identification (initials S, J) and L soft palate is a single lazcano-white tissue fragment (0.4 x 0.2 x 0.1 cm). Submitted intact in A1. MIFADUMO BAILON 06/15/2019 07:58 06/18/2019 15:45 [facility] Resident/Hung w: Joycelyn Cardenas MD 06/18/2019 15:45 [facility] Scanned Images 06/18/2019 15:45 [facility] Tissue ENTIRE ORAL MUCOUS MEMBRANE / Unknown 06/14/2019 10:55 EST 06/14/2019 21:51 EST Santino Leal DO PATHOLOGY ORDERABLES Fi nal Result [facility] [address] [place] [address] documented in this encounter Visit Diagnoses Diagnosis Encounter for other general examination documented in this encounter Care Teams Irrigation Tax Assessor Collector Relationship Specialty Start Date End Date Luz Monreal MD PCP - General 02/24/19 03/01/20 None, Provider PCP - General 03/02/20 03/28/21 Sabrina Jerome, PLATE MILL HAND [address] [place] [address] PCP - General 03/29/21 documented as of this encounter
--- OUTSIDE RECORDS SUMMARY | 2024-07-28 15:08 | XMS_ITS | Encounter Summary ---
Author Organization [facility] Address [address] [place] [address] Care Team Providers Care Breastfeeding Peer Counselor Name Role Phone Sabrina Jerome BEAUTY SPECIALIST Primary Care Provider [phone] Encounter Details Date Type Department Care Team (Late st Contact Info) Description 12/12/2023 Lab Requisition [facility] Pathology & Laboratory Medicine - [address] [address] Outr Resulting Lab, Provider Social History Tobacco [...] Qual Undetected Undetected copies/mL 12/15/2023 12:20 EDT [facility] Blood VENOUS BLOOD / Unknown 12/12/2023 7:19 EDT 12/12/2023 17:14 EDT Narrative [facility] - 12/15/2023 12:20 EDT The quantification range of this assay is 20 IU/mL to 10,000,000 IU/mL. ??Testing was performed using the Lucy HIV test ([employer] with the lucy [id number] System. us Provider Outr Resulting Lab CHEMISTRY & BLOOD GA S ORDERABLES Final Result [facility] [address] [place] [address] documented in this encounter Visit Diagnoses Not on filedocumented in this encounter Care Teams Breastfeeding Peer Counselor Relationship Specialty Start Date End Date Sabrina Jerome NP [address] [place] [address] PCP - General 03/29/21 documented as of this encounter
--- OUTSIDE RECORDS SUMMARY | 2024-07-28 15:08 | XMS_ITS | Encounter Summary ---
Author Organization [facility] Address [address] [place] [address] Care Team Providers Care Groundsman Name Role Phone Sabrina Jerome PATROL INSPECTOR Primary Care Provider [phone] Reason for Visit * Reason Comments Follow-up Encounter Details Date Type Department Care Team (Late st Contact Info) Description 09/23/2022 9:30 EDT Telemedicine [facility] Infectious Disease [address] [address] Lit Pina, DO 111 [facility], [facility] 5 [place] [address] Asymptomatic HIV infection (HCC-CMS) (Primary [...] conferencing: The location of the patient : [facility], [facility] The location of the provider: Office [facility] The following staff and their role did [...] <??20. ?Closed relationship. ??His partner??(Fernando)??is followed at [facility] as [...] day (Patient not taking: Reported on 09/17/2017) ibeqwziakg-gixiczzg-fjbpil ala 200-25-25 mg tablet Take 1 Tab [...] ??Tdap 2011, needs booster (will get at [facility] next month). ?[place]??Apr 2019, looked good so repeat in 10 years.?Pneumovax 2018, prevnar 2014.?COVID 2020, due for booster but patient declines. Flushot Apr 2022 ?? 5) HTN per [facility], sees Sabrina Jerome with good regularity. ?? [...] encounter Visit Diagnoses Diagnosis Asymptomatic HIV infection ([facility]-CMS)- Primary Asymptomatic human immunodeficiency virus (HIV) infection status documented in this encounter Care Teams Groundsman Relationship Specialty Start Date End Date Sabrina Jerome NP [address] [place] [address] PCP - General 03/29/21 documented as of this encounter
--- OUTSIDE RECORDS SUMMARY | 2024-07-28 15:08 | XMS_ITS | Encounter Summary ---
Author Organization [facility] Address [address] [place] [address] Care Team Providers Care Meeting Specialist Name Role Phone Sabrina Jerome PRODUCTION HARDENER Primary Care Provider [phone] Reason for Visit * Reason Comments Medications Refill Encounter Details Date Type Department Care Team (Late st Contact Info) Description 06/28/2022 Refill [facility] Infectious Disease - [address] [address] Lit Pina, DO 111 [facility], Level [address] [place] [phone] Medications Refill Social History Tobacco Use Types [...] Tab by mouth daily. Reorder 03/01/2019 06/28/2022 qgcadbccde-vfcxlhin-autxs o ala 200-25-25 mg tablet Take 1 Tab by mouth daily. Reorder 09/17/2017 06/28/2022 documented as of this encounter Care Teams Meeting Specialist Relationship Specialty Start Date End Date Sabrina Jerome NP [address] [place] [address] PCP - General 03/29/21 documented as of this encounter
--- OUTSIDE RECORDS SUMMARY | 2024-07-28 15:08 | XMS_ITS | Encounter Summary ---
Author Organization [facility] Address [address] [place] [address] Care Team Providers Care Model Builder Display Name Role Phone None, Provider Primary Care Provider Unavailabl e Reason for Visit * Reason Onset Date Comments Follow-up 08/21/2020 Encounter Details Date Type Department Care Team (Late st Contact Info) Description 08/21/2020 Telephone [facility] Infectious Disease - [address] [phone] Lit Pina, DO 111 [facility], Level [address] [place] [address] Follow-up Social History Tobacco Use [...] Encounter - Lit Pina DO - 08/21/2020 8828 EST Patient's Fernando called stating that patient [...] on filedocumented in this encounter Care Teams Model Builder Display Relationship Specialty Start Date End Date None, Provider PCP - General 03/02/20 03/28/21 documented as of this encounter
--- OUTSIDE RECORDS SUMMARY | 2024-07-28 15:08 | XMS_ITS | Encounter Summary ---
Author Organization [facility] Address [address] [place] [address] Care Team Providers Care Bilingual Kindergarten Teacher Name Role Phone Sabrina Jerome OCCUPATIONAL THERAPY TEACHER Primary Care Provider [phone] Reason for Visit * Reason Comments Medication Questions Encounter Details Date Type Department Care Team (Latest Contact Info) Description 09/30/2023 Specialty Pharmacy [facility] [address] [place] [address] Jori Mitchell RPH Refill Coordination Outreach for [...] Jori Mitchell RPH - 09/30/2023 1548 EDT [facility] Infectious Disease Clinic Guanakito Cedillo is a 53 y.o. male being treated with raltegravir (Isentress) 1200 mg once daily plus xwmgiipeyhouq-kxcjbreagjz-zfkxpxmti alafenamide (Odefsey) once daily for HIV. The [...] Take 1 tablet by mouth every day xvcqdbqlzbitj-qpuuukihzrz-qvvaencom alafenam (ODEFSEY) tablet 1 Tablet, oral, DAILY, [...] Continue raltegravir 1200 mg once daily plus kddhrzpqfkwfy-ktjrabfcsxj-luclwaypk alafenamide (Odefsey) once daily. Follow-up planned: - Clinic appointment: scheduled with Dr. Lit Pina on 11/10/23 - Laboratory monitoring: to be ordered by Dr. Pina - Next refill due by 10/13/23 Jori Mitchell, PharmD Ambulatory Pharmacist [facility] Infectious Disease 09/30/2023 documented in this [...] 10/27/2023 added in this encounter Care Teams Bilingual Kindergarten Teacher Relationship Specialty Start Date End Date Sabrina Jreome NP [address] [place] [address] PCP - General 03/29/21 documented as of this encounter
--- OUTSIDE RECORDS SUMMARY | 2024-07-28 15:09 | XMS_ITS | Encounter Summary ---
Author Organization [facility] Address [address] [place] [address] Care Team Providers Care Spray Dry Operator Name Role Phone Hanane Pollock NP Primary Care Provider [phone] Encounter Details Date Type Department Care Team (Late st Contact Info) Description 04/20/2016 Orders Only [facility] Infectious Disease - Main [place] [address] [place] [address] Juli Franz MD Social History Tobacco Use [...] on filedocumented in this encounter Care Teams Spray Dry Operator Relationship Specialty Start Date End Date Hanane Pollock NP [facility] [address] [place] [address] PCP - General 01/30/09 02/23/19 documented as of this encounter
--- OUTSIDE RECORDS SUMMARY | 2024-07-28 15:09 | XMS_ITS | Encounter Summary ---
Author Organization [facility] Address [address] [place] [address] Care Team Providers Care Urology Physician Assistant Name Role Phone Hanane Pollock NP Primary Care Provider [phone] Reason for Visit * Reason Onset Date Comments Other 04/29/2018 Encounter Details Date Type Department Care Team (Late st Contact Info) Description 04/29/2018 Telephone [facility] General Surgery - [facility] [address] [place] [address] Bharat Dowd MD 111 [facility], Level [address] [place] [address] Other Social History Tobacco Use [...] Dean performed Guanakito's colonoscopy on September at [facility]. It was normal with a hyperplastic polyp. He is due anytime after 09/12/18. Fernando will call me back in to schedule this. documented in this encounter Plan of Treatment Not on file documented as of this encounter Visit Diagnoses Not on filedocumented in this encounter Care Teams Urology Physician Assistant Relationship Specialty Start Date End Date Hanane Pollock, SOM [facility] [address] [place] [address] PCP - General 01/30/09 02/23/19 documented as of this encounter
--- OUTSIDE RECORDS SUMMARY | 2024-07-28 15:09 | XMS_ITS | Encounter Summary ---
Author Organization [facility] Address [address] [place] [address] Care Team Providers Care Bricklayer Name Role Phone Hanane Mccormack NP Primary Care Provider [phone] Encounter Details Date Type Department Care Team ([facility] st Contact Info) Description 05/22/2017 Results Only [facility]- [facility] [phone] Peggy Dias, DO [address] [place] [address] Social History Tobacco Use Types [...] ? KALEB CEDILLO ? Accession #: ? [id number] ? : ? 1970 (Age: 47) ??M [...] entirely in 1 and 2. CHANTAL Meraz ([facility]) 05/26/2017 9:24 AM End of Report [facility] 05/22/2017 7:28 EST 05/24/2017 7:28 EST us Peggy Dias DO PATHOLOGY ORDERABLES Final Res ult [facility] [address] [place] [address] documented in this encounter Visit Diagnoses Not on filedocumented in this encounter Care Teams Bricklayer Relationship Specialty Start Date End Date Hanane Mccormack NP [facility] [address] [place] [address] PCP - General 01/30/09 02/23/19 documented as of this encounter
--- OUTSIDE RECORDS SUMMARY | 2024-07-28 15:09 | XMS_ITS | Encounter Summary ---
Author Organization [facility] Address [address] [place] [address] Care Team Providers Care Director Technical Name Role Phone Hanane Pollock NP Primary Care Provider [phone] Encounter Details Date Type Department Care Team (Late st Contact Info) Description 04/04/2017 Results Only [facility] Infectious Disease - Main [address] [address] Juli Franz MD Social History Tobacco Use [...] Narrative 04/07/2017 9:41 EDT Vascular Diagnostic Laboratory [facility], [facility], Level [address] [place] [address]. [place] [address] Technologist: Erik Trivedi Fellow: IMPRESSIONS 1. Normal [...] MD - 04/07/2017 Vascular Diagnostic Laboratory [facility] Care [facility], [facility] [address] [place] [address] Technologist: Erik Trivedi Fellow: IMPRESSIONS 1. Normal [...] Pablo Michaud 04/07/2017 09:41 Juli Franz MD [facility] VASCULAR ORDERABLES Fin al Result documented in this encounter Visit Diagnoses Not on filedocumented in this encounter Care Teams Director Technical Relationship Specialty Start Date End Date Hanane Pollock NP [facility] [address] [place] [address] PCP - General 01/30/09 02/23/19 documented as of this encounter
--- OUTSIDE RECORDS SUMMARY | 2024-07-28 15:09 | XMS_ITS | Encounter Summary ---
Author Organization [facility] Address [address] [place] [address] Care Team Providers Care Shorts Sifter Name Role Phone Hanane Pollock NP Primary Care Provider [phone] Reason for Visit * Reason Comments Follow-up Encounter Details Date Type Department Care Team ([facility] st Contact Info) Description 09/17/2017 9:45 EST Office Visit [facility] Infectious Disease [address] [address] Juli Franz MD AIDS (acquired immune deficiency [...] 0945 EST [facility] FOLLOWUP NOTE DOS 09/17/2017 Last seen: 03/12/2017 SUBJECTIVE: Guaankito presents for reevaluation of his HIV disease [...] none + MJ daily Lives with his half-way partner who is also HIV + They [...] GC/chlamydia neg Lipid panel: TGs 88 HDL43 [id number] US of the renal arteries done 03/2017 was nl ASSESSMENT AND PLAN: 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 He has good adherence. He had had an increase in his Cr so we wanted to make a change to decrease risk for half-way nephrotoxicity. He has chronic HBV so wanted [...] and a follow-up with me in the [facility] in 4-6 months. 2. Tobacco use - He did not tolerate Chantix, but he has been successful in decreasing his tobacco use on his own. He is motivated to quit. Unfortunately it is not clear that his partner is ready to quit. Guanakito is still focused on the goal of quitting. 3. HTN - He has not been seen at the [facility] to have his blood pressure checked [...] AIDS (acquired immune deficiency syndrome) ([facility])- Primary Human immunodeficiency virus [HIV] disease Essential hypertension Unspecified essential hypertension Tobacco use Tobacco use disorder Chronic active hepatitis B without delta agent ([facility]) Encounter for long-term current use of high risk medication documented in this encounter Discontinued Medications Medication Sig Discontinue Reason Start Date End Da te Raltegravir (ISENTRESS) 400 mg tabletIndications:AIDS (acquired immune deficiency syndrome) ([facility]),AIDS (HCC-CMS) Take 1 Tab by mouth 2 times daily. 03/12/2017 09/17/2017 ptikgenhyl-axxkpctl-bfszm o ala 200-25-25 mg tablet Take 1 Tab by mouth daily. Reorder 03/12/2017 09/17/2017 documented as of this encounter Historical Medications * This list may reflect changes made after this encounter. Cholecalciferol, Vitamin D3, 400 unit tablet Take 400 Units by mouth daily. added in this encounter Care Teams Shorts Sifter Relationship Specialty Start Date End Date Hanane Pollock NP [facility] [address] [place] [address] (work) PCP - General 01/30/09 02/23/19 documented as of this encounter
--- OUTSIDE RECORDS SUMMARY | 2024-07-28 15:09 | XMS_ITS | Encounter Summary ---
Author Organization [facility] Address [address] [place] [address] Care Team Providers Care Box Worker Name Role Phone Hanane Pollock NP Primary Care Provider [phone] Encounter Details Date Type Department Care Team (Late st Contact Info) Description 12/20/2014 Orders Only [facility] Infectious Disease - [address] [address] Juli Franz MD Social History Tobacco Use [...] MCV, External 97.0(A) 80 - 95 fL [facility] MCH, External 33.9(A) 27.0 - 33.0 [...] 12/14/2014 11:44 EDT us Juli Franz MD PACKAGES & DNA PROBE ORDERABLE S Final Result [facility] * PHOSPHORUS (12/14/2014 11:44 EDT) Phosphorus, External 3.4 2.5 - 4.9 mg/dL [facility] Blood specimen (specimen) 12/14/2014 11:44 EDT us [...] on filedocumented in this encounter Care Teams Box Worker Relationship Specialty Start Date End Date Hanane Pollock, [facility] [address] [place] [address] PCP - General 01/30/09 02/23/19 documented as of this encounter
--- OUTSIDE RECORDS SUMMARY | 2024-07-28 15:09 | XMS_ITS | Encounter Summary ---
Author Organization [facility] Address [address] [place] [address] Care Team Providers Care Associate Java Developer Name Role Phone Hanane Pollock OPERATIONS MANAGER ASSISTANT Primary Care Provider [phone] Encounter Details Date Type Department Care Team (Late st Contact Info) Description 12/23/[address] [facility] Infectious Disease - [address] [address] Juli Franz MD Social History Tobacco Use [...] filedocumented in this encounter Care Teams Associate Java Developer Relationship Specialty Start Date End Date Hanane Pollock NP [facility] [address] [place] [address] PCP - General 01/30/09 02/23/19 documented as of this encounter
--- OUTSIDE RECORDS SUMMARY | 2024-07-28 15:09 | XMS_ITS | Encounter Summary ---
Author Organization [facility] Address [address] [place] [address] Care Team Providers Care Human Resource Manager Name Role Phone Hanane Pollock NP Primary Care Provider [phone] Reason for Referral * Radiology Services (Routine/Next Available) - Closed Specialty Diagnoses / Procedures Referred By Contac t Referred To Contact Diagnoses Essential hypertension Procedures RAD US RENAL ARTERY DOPPLER Juli Franz MD Referral ID Status Reason Start Date Expiration Date Visits Re quested Visits Authorized [id number] Closed 11/06/2016 1 1 Reason for Visit * Reason Comments Follow-up Encounter Details Date Type Department Care Team (Late st Contact Info) Description 11/06/2016 9:00 EDT Office Visit [facility] Infectious Disease - [address] [address] Juli Franz MD AIDS (CMS-HCC) (Primary Dx); [...] Juli Franz MD - 11/06/2016 0900 EDT [facility] FO[facility] DOS 11/06/2016 Last seen: 02/21/2016 SUBJECTIVE: Guanakito presents for reevaluation of his HIV disease and his chronic hepatitis B and C. 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 He has chronic HBV so want [...] - as above. He was seen at [facility] was started on lisinopril but he developed palpitations he is now on Cardura. His blood pressure is not adequately controlled so we elected to increase his Cardura to 4 mg a day. I placed new prescription for the 4 mg tablet as he will run out of his2 mg tablets sooner. Encouraged him to follow up at [facility] to have his blood pressure checks so [...] is a counselor that works out of [facility] and she will arrange this connection. I also think that he may benefit from a connection with [facility], and that referral can be made through the [facility] 8. Chest pressure - he was having [...] 11/06/2016 added in this encounter Care Teams Human Resource Manager Relationship Specialty Start Date End Date Hanane Pollock NP [facility] [address] [place] [address] PCP - General 01/30/09 02/23/19 documented as of this encounter
--- OUTSIDE RECORDS SUMMARY | 2024-07-28 15:09 | XMS_ITS | Encounter Summary ---
Author Organization [facility] Address [address] [place] [address] Care Team Providers Care Director Supply Name Role Phone Hanane Pollock NP Primary Care Provider [phone] Encounter Details Date Type Department Care Team (Late st Contact Info) Description 05/31/2015 Orders Only [facility] Infectious Disease - [address] [address] Juli Franz MD AIDS (acquired immune deficiency syndrome) ([facility]) (Primary Dx); AIDS ([facility]) Social History Tobacco Use Types [...] mg tabletIndications:A IDS (acquired immune deficiency syndrome) ([facility]),AIDS ([facility]) Take 1 Tab by mouth every 24 hours 30 Tab 5 05/31/2015 11/27/2015 tenofovir (VIREAD) 300 mg tabletIndications:A IDS (acquired immune deficiency syndrome) ([facility]),AIDS ([facility]) Take 1 Tab by mouth daily 30 Tab 5 05/31/2015 12/29/2015 Raltegravir (ISENTRESS) 400 mg tabletIndications:A IDS (acquired immune deficiency syndrome) ([facility]),AIDS (HCC-CMS) Take 1 Tab by mouth 2 [...] Diagnoses Diagnosis AIDS (acquired immune deficiency syndrome) ([facility])- Primary Human immunodeficiency virus [HIV] disease AIDS (HCC-CMS) Human immunodeficiency virus [HIV] disease documented in this encounter Discontinued Medications Medication Sig Discontinue Reason Start Date End Da te atazanavir (REYATAZ) 300 mg capsuleIndications:AIDS (acquired immune deficiency syndrome) ([facility]),Encounter for long-term (current) use of other medications Take 1 Cap by mouth daily. Reorder 07/20/2014 05/31/2015 lamiVUDine (EPIVIR) 300 mg tabletIndications:AIDS (acquired immune deficiency syndrome) ([facility]),Encounter for long-term (current) use of other medications Take 1 Tab by mouth daily. Reorder 07/20/2014 05/31/2015 Raltegravir (ISENTRESS) 400 mg tabletIndications:AIDS (acquired immune deficiency syndrome) ([facility]),Encounter for long-term (current) use of other medications Take 1 Tab by mouth 2 times daily. Reorder 07/20/2014 05/31/2015 tenofovir (VIREAD) 300 mg tabletIndications:AIDS (acquired immune deficiency syndrome) ([facility]),Encounter for long-term (current) use of other medications Take 1 Tab by mouth daily. Reorder 07/20/2014 05/31/2015 ritonavir (NORVIR) 100 mg tabletIndications:AIDS (acquired immune deficiency syndrome) ([facility]),Encounter for long-term (current) use of other medications Take 1 Tab by mouth every 24 hours. Reorder 07/20/2014 05/31/2015 documented as of this encounter Care Teams Director Supply Relationship Specialty Start Date End Date Hanane Pollock, [employer] [facility] [address] [place] [address] PCP - General 01/30/09 02/23/19 documented as of this encounter
--- OUTSIDE RECORDS SUMMARY | 2024-07-28 15:09 | XMS_ITS | Encounter Summary ---
Author Organization [facility] Address [address] [place] [address] Care Team Providers Care Chief Of Anesthesiology Name Role Phone Hanane Pollock NP Primary Care Provider [phone] Reason for Visit * Reason Onset Date Comments Medication Management 11/20/2015 Encounter Details Date Type Department Care Team (Late st Contact Info) Description 11/20/2015 Telephone [facility] Infectious Disease - [address] [address] Juli Franz MD Medication Management Social History [...] EDT Faxed note to Hanane Pollock at [facility]. * Telephone Encounter - Juli Franz MD [...] PO4 and hematuria on UA. Concerned about assisted toxicity of TDF but unable to Dc [...] ~ 4 - 6 weeks FU in [facility] in [facility] in January documented in this encounter Plan of Treatment Not on file documented as of this encounter Visit Diagnoses Not on filedocumented in this encounter Care Teams Chief Of Anesthesiology Relationship Specialty Start Date End Date Hanane Pollock NP [facility] [address] [place] [address] PCP - General 01/30/09 02/23/19 documented as of this encounter
--- OUTSIDE RECORDS SUMMARY | 2024-07-28 15:09 | XMS_ITS | Encounter Summary ---
Author Organization [facility] Address [address] [place] [address] Care Team Providers Care Nail Galvanizer Name Role Phone Hanane Pollock NP Primary Care Provider [phone] Reason for Visit * Reason Comments Other Encounter Details Date Type Department Care Team (Late st Contact Info) Description 01/06/2017 Refill [facility] Infectious Disease - [address] [address] Juli Franz MD Other Social History Tobacco [...] Encounter - Ceci Fletcher RN - 01/06/2017 3035 EDT E-RX Odefsy and Cardura to [facility] pharmacy in [place]. Patient is seen in [facility]. documented in this encounter Plan of Treatment Not on file documented as of this encounter Visit Diagnoses Diagnosis Acquired immunodeficiency syndrome ([facility])- Primary Human immunodeficiency virus [HIV] disease documented in this encounter Discontinued Medications Medication Sig Discontinue Reason Start Date End Da te varenicline (CHANTIX ZULMA) 0.5 mg (11)- 1 mg (42) tablet Take one 0.5mg tablet once daily x 3 days then take one 0.5mg tablet twice daily x 4 days then take one 1mg tablet twice daily Patient Stopped Taking 06/30/2015 01/06/2017 qxoltrbafn-yqmhgvke-oy nofo ala 200-25-25 mg tablet Take 1 Tab by mouth daily. Reorder 11/06/2016 01/06/2017 doxazosin (CARDURA) 4 mg tablet Take 1 Tab by mouth daily. Reorder 11/06/2016 01/06/2017 documented as of this encounter Care Teams Nail Galvanizer Relationship Specialty Start Date End Date Hanane Pollock NP [facility] [address] [place] [address] PCP - General 01/30/09 02/23/19 documented as of this encounter
--- OUTSIDE RECORDS SUMMARY | 2024-07-28 15:09 | XMS_ITS | Encounter Summary ---
Author Organization [facility] Address [address] [place] [address] Care Team Providers Care Practical Nurse Name Role Phone Hanane Pollock NP Primary Care Provider [phone] Reason for Visit * Reason Comments Follow-up Encounter Details Date Type Department Care Team ([facility] st Contact Info) Description 11/17/2013 9:45 EDT Office Visit [facility] Infectious Disease [address] [address] Juli Franz MD AIDS (acquired immune deficiency [...] mg tabletIndications:A IDS (acquired immune deficiency syndrome) ([facility]),Encounter for long-term (current) use of other medications Take 1 Tab by mouth daily. 30 Tab 3 11/17/2013 03/30/2014 ritonavir (NORVIR) 100 mg tabletIndications:A IDS (acquired immune deficiency syndrome) ([facility]),Encounter for long-term (current) use of other medications Take 1 Tab by mouth every 24 hours. 30 Tab 3 11/17/2013 03/30/2014 Raltegravir (ISENTRESS) 400 mg tabletIndications:A IDS (acquired immune deficiency syndrome) ([facility]),Encounter for long-term (current) use of other medications Take 1 Tab by mouth 2 times daily. 60 Tab 3 11/17/2013 03/30/2014 lamiVUDine (EPIVIR) 300 mg tabletIndications:A IDS (acquired immune deficiency syndrome) ([facility]),Encounter for long-term (current) use of other medications Take 1 Tab by mouth daily. 30 Tab 3 11/17/2013 03/30/2014 atazanavir (REYATAZ) 300 mg capsuleIndications: AIDS (acquired immune deficiency syndrome) ([facility]),Encounter for long-term (current) use of other medications Take 1 Cap by mouth daily. 30 Cap 3 11/17/2013 03/30/2014 documented in this encounter Progress Notes * Lavonne Ng - 11/18/2013 0907 EDT Mailed to Hanane Pollock * Juli Franz MD - 11/17/2013 0940 EDT [facility] FOLLOWUP NOTE DOS 11/17/2013 Last seen: 07/28/2013 [...] documented as of this encounter Care Teams Practical Nurse Relationship Specialty Start Date End Date Hanane Pollock NP [facility] [address] [place] [address] PCP - General 01/30/09 02/23/19 documented as of this encounter
--- OUTSIDE RECORDS SUMMARY | 2024-07-28 15:09 | XMS_ITS | Encounter Summary ---
Author Organization [facility] Address [address] [place] [address] Care Team Providers Care Livestock Farmers Name Role Phone Hanane Pollock NP Primary Care Provider [phone] Reason for Referral * Radiology Services (Routine/Next Available) - Closed Specialty Diagnoses / Procedures Referred By Contac t Referred To Contact Diagnoses HCV infection Viral hepatitis B without mention of hepatic coma, chronic, without mention of hepatitis delta Procedures RAD US ABDOMEN ONE ORGAN/QUADRANT Juli Franz MD Referral ID Status Reason Start Date Expiration Date Visits Re quested Visits Authorized [id number] Closed 03/30/2014 1 1 Reason for Visit * Reason Comments Follow-up Encounter Details Date Type Department Care Team (Late st Contact Info) Description 03/30/2014 9:[address] [facility] Infectious Disease - [address] [address] Juli Franz MD AIDS (acquired immune deficiency [...] mg tabletIndications:A IDS (acquired immune deficiency syndrome) ([facility]),Encounter for long-term (current) use of other medications Take 1 Tab by mouth 2 times daily. 60 Tab 3 03/30/2014 07/20/2014 atazanavir (REYATAZ) 300 mg capsuleIndications: AIDS (acquired immune deficiency syndrome) ([facility]),Encounter for long-term (current) use of other medications Take 1 Cap by mouth daily. 30 Cap 3 03/30/2014 07/20/2014 tenofovir (VIREAD) 300 mg tabletIndications:A IDS (acquired immune deficiency syndrome) ([facility]),Encounter for long-term (current) use of other medications Take 1 Tab by mouth daily. 30 Tab 3 03/30/2014 07/20/2014 ritonavir (NORVIR) 100 mg tabletIndications:A IDS (acquired immune deficiency syndrome) ([facility]),Encounter for long-term (current) use of other medications Take 1 Tab by mouth every 24 hours. 30 Tab 3 03/30/2014 07/20/2014 lamiVUDine (EPIVIR) 300 mg tabletIndications:A IDS (acquired immune deficiency syndrome) ([facility]),Encounter for long-term (current) use of other medications Take 1 Tab by mouth daily. 30 Tab 3 03/30/2014 07/20/2014 documented in this encounter Progress Notes * Lavonne Ng - 03/31/2014 0841 EDT Mailed office note, med list and lab orders to Hanane Pollock. * Juli Franz MD - 03/30/2014 0942 EDT [facility] FOLLOWUP NOTE DOS 03/30/2014 Last seen: [...] 400 mg tabletIndications:AIDS (acquired immune deficiency syndrome) ([facility]),Encounter for long-term (current) use of other medications Take 1 Tab by mouth 2 times daily. Reorder 11/17/2013 03/30/2014 documented as of this encounter Care Teams Livestock Farmers Relationship Specialty Start Date End Date Hanane Pollock NP [facility] [address] [place] [address] PCP - General 01/30/09 02/23/19 documented as of this encounter
--- OUTSIDE RECORDS SUMMARY | 2024-07-28 15:09 | XMS_ITS | Encounter Summary ---
Author Organization [facility] Address [address] [place] [address] Care Team Providers Care Skin Lifter Bacon Name Role Phone Hanane Pollock NP Primary Care Provider [phone] Reason for Visit * Reason Comments Other Encounter Details Date Type Department Care Team (Late st Contact Info) Description 03/09/2018 Refill [facility] Infectious Disease [address] [address] Juli Franz MD Other Social History Tobacco [...] EDT Left message on Guanakito' mobil phone [phone] (M). He should call Hanane Odell NP at the [facility] for med refills. documented in this encounter Plan of Treatment Not on file documented as of this encounter Visit Diagnoses Not on filedocumented in this encounter Care Teams Skin Lifter Bacon Relationship Specialty Start Date End Date Hanane Pollock NP [facility] [address] [place] [address] PCP - General 01/30/09 02/23/19 documented as of this encounter
--- OUTSIDE RECORDS SUMMARY | 2024-07-28 15:09 | XMS_ITS | Encounter Summary ---
Author Organization [facility] Address [address] [place] [address] Care Team Providers Care Manager Unit Name Role Phone Hanaen Pollock NP Primary Care Provider [phone] Encounter Details Date Type Department Care Team (Late st Contact Info) Description 11/06/2016 Orders Only [facility] Infectious Disease - [address] [address] Juli Franz MD AIDS (acquired immune deficiency syndrome) ([facility] AIDS ([facility]) Social History Tobacco Use Types Packs/Day Years [...] mg tabletIndications:A IDS (acquired immune deficiency syndrome) ([facility]),AIDS (HCC-CMS) Take 1 Tab by mouth 2 [...] as of this encounter Care Teams Manager Unit Relationship Specialty Start Date End Date Hanane Pollock NP [facility] [address] [place] [address] PCP - General 01/30/09 02/23/19 documented as of this encounter
--- OUTSIDE RECORDS SUMMARY | 2024-07-28 15:09 | XMS_ITS | Encounter Summary ---
Author Organization [facility] Address [address] [place] [address] Care Team Providers Care [employer] Worker Name Role Phone Hanane Pollock NP Primary Care Provider [phone] Encounter Details Date Type Department Care Team (Late st Contact Info) Description 11/17/2015 Documentation Visit [facility] Infectious Disease - [facility] [address] [place] [address] Juli Franz MD Social History Tobacco Use [...] Notes * Juli Franz MD - 11/17/2015 8349 EDT Guanakito Cedillo: Per pharmacy your prescription [...] 4 weeks and FU with me in [facility].the following month documented in this encounter Plan of Treatment Not on file documented as of this encounter Visit Diagnoses Not on filedocumented in this encounter Care Teams [employer] Worker Relationship Specialty Start Date End Date Hanane Pollock NP [facility] [address] [place] [address] PCP - General 01/30/09 02/23/19 documented as of this encounter
--- OUTSIDE RECORDS SUMMARY | 2024-07-28 15:09 | XMS_ITS | Encounter Summary ---
Author Organization [facility] Address [address] [place] [address] Care Team Providers Care Head Of Cytogenetics Name Role Phone Hanane Pollock NP Primary Care Provider [phone] Reason for Visit * Reason Comments Follow-up Encounter Details Date Type Department Care Team (Late st Contact Info) Description 03/12/2017 9:45 EDT Office Visit [facility] Infectious Disease [address] [address] Juli Franz MD Essential hypertension (Primary Dx); [...] Juli Franz MD - 03/12/[address] [facility] FOLLOWUP NOTE DOS 03/12/2017 Last seen: 11/06/2016 SUBJECTIVE: Guanakito presents for reevaluation of his HIV disease and his chronic hepatitis B and C. Going to [place] for his BP. 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 He has chronic HBV so wanted [...] and a follow-up with me in the [facility] in 4-6 months. We will plan to [...] - He has been seen at the [facility] for his hypertension since he [...] study. He is willing to go to [place] or to [facility] to have this done, and Hanane [...] will look into scheduling this through the [facility]. 7. Depression -he has had [...] mouth 2 times daily. Reorder 11/06/2016 03/12/2017 coylnsyyqp-lfnwjsws-nbycb o ala 200-25-25 mg tablet Take 1 Tab by mouth daily. Reorder 02/14/2017 03/12/2017 documented as of this encounter Care Teams Head Of Cytogenetics Relationship Specialty Start Date End Date Hanane Pollock, SOM [facility] [address] [place] [address] PCP - General 01/30/09 02/23/19 documented as of this encounter
--- OUTSIDE RECORDS SUMMARY | 2024-07-28 15:09 | XMS_ITS | Encounter Summary ---
Author Organization [facility] Address [address] [place] [address] Care Team Providers Care Automatic Maintainer Name Role Phone Hanane Pollock NP Primary Care Provider [phone] Reason for Visit * Reason Onset Date Comments Follow-up 11/20/2015 Encounter Details Date Type Department Care Team (Late st Contact Info) Description 11/20/2015 Telephone [facility] Infectious Disease - [address] [address] New Mix RN Follow-up Social History Tobacco [...] Encounter - New Mix RN - 11/20/2015 8446 EDT Patient would like a call from Dr. Franz [phone], to discuss the medical situation they spoke about at his 11/15/[address] [facility]. Explained Dr. Franz was at a conference today and wouldn't be able to return his call today. Explained that she is aware he called today. Mailed patient an after visit summary with the [employer] code, so he join [employer] on line. Dr. Franz may change his medications, she will contact patient to discuss options. NEW MIX RN documented in this encounter Plan of Treatment Not on file documented as of this encounter Visit Diagnoses Not on filedocumented in this encounter Care Teams Automatic Maintainer Relationship Specialty Start Date End Date Hanane Pollock NP [facility] [address] [place] [address] PCP - General 01/30/09 02/23/19 documented as of this encounter
--- OUTSIDE RECORDS SUMMARY | 2024-07-28 15:09 | XMS_ITS | Encounter Summary ---
Author Organization [facility] Address [address] [place] [address] Care Team Providers Care Bankruptcy Legal Assistant Name Role Phone Luz Monreal MD Primary Care Provider Unavail able Reason for Visit * Reason Comments Follow-up Encounter Details Date Type Department Care Team (Late st Contact Info) Description 03/01/2019 9:00 EDT Office Visit [facility] Infectious Disease - [address] [address] Lit Pina, DO [address] [facility], [address] [place] [address] Asymptomatic HIV infection (HCC-CMS) (Primary [...] note were not included. Office Visit 08/31/2018 [facility] Infectious Disease - [facility] Lit Pina DO HIV (human immunodeficiency virus infection) ([facility]) Dx Follow-up Reason for Visit Progress [...] Exercises with yard work. 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 Both parties are on ART and have VL < 20. Doing well in general, he plans to quit tobacco this fall with . Review of Systems: 10-point review of systems is negative except as noted in the HPI. Past Medical History: Past Medical History: Diagnosis Date ??? HIV positive ([facility]) ([facility]) ??? Screening colonoscopy 2008 Cryptococcal meninginitis was [...] day (Patient not taking: Reported on 09/17/2017) zyqmurimnh-iyzcdwbt-mgqrew ala 200-25-25 mg tablet Take 1 Tab by mouth daily. lisinopril (PRINIVIL, ZESTRIL) 10 mg tablet Take 1 Tab by mouth daily. raltegravir 600 mg tablet Take 1,200 mg by mouth daily. Allergies Allergen Reactions ??? Penicillins Rash ??? Sulfa (Sulfonamide Antibiotics) Hives Social History Tobacco: down to 1PPD Alcohol:Rare, heavy in past Recreational drugs:THC, daily Herbal:none Professional:Not working now but does some [employer] Relationships / Living Situation: Sounds stable Sexual: [...] A vaccine in distant past. Tdap 2011. [place] slipped through the cracks this spring, pt will contact PCM to schedule. Pneumovax 2018, prevnar 2015. 5) HTN per PCM documented in this encounter Plan of Treatment Not on file documented as of this encounter Visit Diagnoses Diagnosis Asymptomatic HIV infection (HCC-CMS)- Primary Asymptomatic human immunodeficiency virus (HIV) infection status documented in this encounter Care Teams Bankruptcy Legal Assistant Relationship Specialty Start Date End Date Luz Monreal MD PCP - General 02/24/19 03/01/20 documented as of this encounter
--- OUTSIDE RECORDS SUMMARY | 2024-07-28 15:09 | XMS_ITS | Encounter Summary ---
Author Organization [facility] Address [address] [place] [address] Care Team Providers Care Cage Loader Name Role Phone Hanane Pollock NP Primary Care Provider [phone] Reason for Visit * Reason Comments Other Encounter Details Date Type Department Care Team (Late st Contact Info) Description 09/10/2017 [facility] Infectious Disease [address] [address] Juli Franz MD Other Social History Tobacco [...] Diagnoses Diagnosis AIDS (acquired immune deficiency syndrome) ([facility]) Human immunodeficiency virus [HIV] disease AIDS ([facility]) Human immunodeficiency virus [HIV] disease documented in this encounter Care Teams Cage Loader Relationship Specialty Start Date End Date Hanane Pollock, [facility] [address] [place] [address] PCP - General 01/30/09 02/23/19 documented as of this encounter
--- OUTSIDE RECORDS SUMMARY | 2024-07-28 15:09 | XMS_ITS | Encounter Summary ---
Author Organization [facility] Address [address] [place] [address] Care Team Providers Care Clinical Rehab Specialist Name Role Phone Hanane Pollock NP Primary Care Provider [phone] Reason for Visit * Reason Onset Date Comments Other 04/29/2018 Encounter Details Date Type Department Care Team (Late st Contact Info) Description 04/29/2018 Telephone [facility] General Surgery - [facility] [address] [place] [address] Bharat Dowd MD [address] [facility], [address] [place] [address] Other Social History Tobacco Use [...] that Guanakito had his colonoscopy here at [facility], which I told him I could not find when he had it or who did it. He was concerned that I could not find it; therefore, I called Guanakito's nurse practitioner Hanane Pollock at [phone], who did research and determinedthat Dr. Sarkis Dean did it 09/12/08 at [facility], and it was found to have [...] filedocumented in this encounter Care Teams Clinical Rehab Specialist Relationship Specialty Start Date End Date Hanane Pollock, CORPORATE TRAVEL CONSULTANT [facility] [address] [place] [address] PCP - General 01/30/09 02/23/19 documented as of this encounter
--- OUTSIDE RECORDS SUMMARY | 2024-07-28 15:09 | XMS_ITS | Encounter Summary ---
Author Organization [facility] Address [address] [place] [address] Care Team Providers Care Field Artillery Basic Name Role Phone Hanane Pollock NP Primary Care Provider [phone] Encounter Details Date Type Department Care Team (Late st Contact Info) Description 04/18/2016 Orders Only [facility] Infectious Disease - [address] [address] Juli Franz MD Social History Tobacco Use [...] EDT) HIV1 RNA, External Detected Undected copies/mL [facility] Comment:Please see the scann ed report in PRISM for further interpretation. Test performed by the [facility]. Blood specimen (specimen) 04/04/2016 15:12 EDT us Juli Franz MD CHEMISTRY & BLOOD GAS ORDERABL ES Final Result [facility] documented in this encounter Visit Diagnoses Not on filedocumented in this encounter Care Teams Field Artillery Basic Relationship Specialty Start Date End Date Hanane Pollock NP [facility] [address] [place] [address] PCP - General 01/30/09 02/23/19 documented as of this encounter
--- OUTSIDE RECORDS SUMMARY | 2024-07-28 15:09 | XMS_ITS | Encounter Summary ---
Author Organization [facility] Address [address] [place] [address] Care Team Providers Care Edge Trimmer Name Role Phone Hanane Pollock NP Primary Care Provider [phone] Reason for Referral * Consult (Routine/Next Available) - Specialty Report Received Specialty Diagnoses / Procedures Referred By Ezequiel arita Referred To Contact General Surgery Diagnoses Perianal mass Juli Frazn MD Moore, Jesse Samuel, MD Phone: tel: fax: Referral ID Status Reason Start Date Expiration Date Visits Requested Visits Authorized [id number] Specialty Report Received Specialty Services Required 5 [...] Info) Description 06/28/2015 9:30 EST Office Visit [facility] Infectious Disease - [address] [address] Juli Franz MD Decreased hemoglobin (Primary Dx); [...] 06/30/2015 1609 EST Faxed lab orders to [facility]. * Juli Franz MD - 06/28/2015 1243 EST [facility] FOLLOWUP NOTE DOS 06/28/2015 Last [...] No risk factors for steatohepatitis except for detention nucleosideanalogue use. We could also be dealing [...] documented as of this encounter Care Teams Edge Trimmer Relationship Specialty Start Date End Date Hanane Pollock NP [facility] [address] [place] [address] PCP - General 01/30/09 02/23/19 documented as of this encounter
--- OUTSIDE RECORDS SUMMARY | 2024-07-28 15:09 | XMS_ITS | Encounter Summary ---
Author Organization [facility] Address [address] [place] [address] Care Team Providers Care Insurance Customer Service Specialist Name Role Phone Hanane Pollock NP Primary Care Provider [phone] Reason for Visit * Reason Onset Date Comments Medications Refill 02/14/2017 Encounter Details Date Type Department Care Team (Late st Contact Info) Description 02/14/2017 Refill [facility] Infectious Disease - [facility] [address] [place] [address] Juli Frnaz MD Medications Refill Social History Tobacco Use [...] documented as of this encounter Care Teams Insurance Customer Service Specialist Relationship Specialty Start Date End Date Hanane Pollock NP [facility] [address] [place] [address] PCP - General 01/30/09 02/23/19 documented as of this encounter
--- OUTSIDE RECORDS SUMMARY | 2024-07-28 15:09 | XMS_ITS | Encounter Summary ---
Author Organization [facility] Address [address] [place] [address] Care Team Providers Care Social Media Marketer Name Role Phone Hanane Pollock NP Primary Care Provider [phone] Encounter Details Date Type Department Care Team (Latest Contact Info) Description 03/12/2016 Documentation Visit [facility] Infectious Disease - [address] [address] Juli Franz MD AIDS (acquired immunodeficiency syndrome), CD4 <=200 ([facility]) (Primary Dx) Social History Tobacco Use Types [...] Diagnosis AIDS (acquired immunodeficiency syndrome), CD4 <=200 ([facility])- Primary Human immunodeficiency virus [HIV] disease documented in this encounter Care Teams Social Media Marketer Relationship Specialty Start Date End Date Hanane Pollock NP [facility] [address] [place] [address] PCP - General 01/30/09 02/23/19 documented as of this encounter
--- OUTSIDE RECORDS SUMMARY | 2024-07-28 15:09 | XMS_ITS | Encounter Summary ---
Author Organization [facility] Address [address] [place] [address] Care Team Providers Care E Commerce Specialist Name Role Phone Hanane Pollock NP Primary Care Provider [phone] Encounter Details Date Type Department Care Team (Late st Contact Info) Description 12/21/2014 Orders Only [facility] Infectious Disease - [address] [address] Juli Franz MD Social History Tobacco Use [...] EDT) HIV1 RNA, External Undetected Undetected copies/mL [facility] Comment:Please see the scan ed report in PRISM for further interpretation. Test performed by [facility]. Blood specimen (specimen) 12/14/2014 11:44 EDT us Juli Franz MD CHEMISTRY & BLOOD GAS ORDERABL ES Final Result [facility] documented in this encounter Visit Diagnoses Not on filedocumented in this encounter Care Teams E Commerce Specialist Relationship Specialty Start Date End Date Hanane Pollock NP [facility] [address] [place] [address] PCP - General 01/30/09 02/23/19 documented as of this encounter
--- OUTSIDE RECORDS SUMMARY | 2024-07-28 15:09 | XMS_ITS | Encounter Summary ---
Author Organization [facility] Address [address] [place] [address] Care Team Providers Care Promotion Writer Name Role Phone Hanane Pollock NP Primary Care Provider [phone] Reason for Visit * Reason Comments Other Encounter Details Date Type Department Care Team (Late st Contact Info) Description 02/04/2017 Refill [facility] Infectious Disease [address] [address] Juli Franz MD Other Social History Tobacco [...] on filedocumented in this encounter Care Teams Promotion Writer Relationship Specialty Start Date End Date Hanane Pollock NP [facility] [address] [place] [address] PCP - General 01/30/09 02/23/19 documented as of this encounter
--- OUTSIDE RECORDS SUMMARY | 2024-07-28 15:09 | XMS_ITS | Encounter Summary ---
Author Organization [facility] Address [address] [place] [address] Care Team Providers Care Professor Of Forest Planning Name Role Phone Hanane Pollock NP Primary Care Provider [phone] Encounter Details Date Type Department Care Team (Late st Contact Info) Description 11/27/2015 Orders Only [facility] Infectious Disease - [address] [address] Juli Franz MD Social History Tobacco Use [...] documented as of this encounter Care Teams Professor Of Forest Planning Relationship Specialty Start Date End Date Hanane Pollock NP [facility] [address] [place] [address] PCP - General 01/30/09 02/23/19 documented as of this encounter
--- OUTSIDE RECORDS SUMMARY | 2024-07-28 15:09 | XMS_ITS | Encounter Summary ---
Author Organization [facility] Address [address] [place] [address] Care Team Providers Care Senior Linux Engineer Name Role Phone Hnaane Pollock NP Primary Care Provider [phone] Reason for Visit * Reason Comments Follow-up Encounter Details Date Type Department Care Team (Latest Contact Info) Description 12/14/2014 9:45 EDT Office Visit [facility] Infectious Disease [address] [address] Juli Franz MD Human immunodeficiency virus (HIV) disease ([facility]) (Primary Dx); Encounter for long-term (current) [...] Progress Notes * Beena Wayne - 12/15/2014 0875 EDT Mailed note,med list, labs to Hanane Pollock. * Juli Franz MD - 12/14/2014 0950 EDT [facility] FOLLOWUP NOTE DOS 07/20/2014 Last [...] Diagnoses Diagnosis Human immunodeficiency virus (HIV) disease ([facility])- Primary Human immunodeficiency virus [HIV] disease Encounter for long-term (current) use of other medications documented in this encounter Care Teams Senior Linux Engineer Relationship Specialty Start Date End Date Hanane Pollock NP [facility] [address] [place] [address] PCP - General 01/30/09 02/23/19 documented as of this encounter
--- OUTSIDE RECORDS SUMMARY | 2024-07-28 15:09 | XMS_ITS | Encounter Summary ---
Author Organization [facility] Address [address] [place] [address] Care Team Providers Care Hoop Riveter Name Role Phone Hanane Pollock NP Primary Care Provider [phone] Reason for Visit * Reason Comments Follow-up Encounter Details Date Type Department Care Team ([facility] st Contact Info) Description 08/31/2018 9:00 EST Office Visit [facility] Infectious Disease [address] [address] Lit Pina, DO [address] [facility] [address] [place] [id number] HIV (human immunodeficiency virus infection) ([facility]) (Primary Dx) Social History Tobacco Use [...] day (Patient not taking: Reported on 09/17/2017) mirhceqoqo-aaufncef-uhfpek ala 200-25-25 mg tablet Take 1 Tab [...] cleared - Dental exam, Sees dental at [facility] Encouraged to get a PCM locally (Sabrina Jerome is a WEB GRAPHIC DESIGNER close to pt) See us in follow [...] in clinic today. Lit Pina DO Pager [phone] Infectious Diseases documented in this encounter Plan of Treatment Not on file documented as of this encounter Visit Diagnoses Diagnosis HIV (human immunodeficiency virus infection) ([facility])- Primary Asymptomatic human immunodeficiency virus (HIV) infection status documented in this encounter Care Teams Hoop Riveter Relationship Specialty Start Date End Date Hanane Pollock NP [facility] [address] [place] [address] PCP - General 01/30/09 02/23/19 documented as of this encounter
--- OUTSIDE RECORDS SUMMARY | 2024-07-28 15:09 | XMS_ITS | Encounter Summary ---
Author Organization [facility] Address [address] [place] [address] Care Team Providers Care Stockbroking Dealer Name Role Phone Hanane Pollock NP Primary Care Provider [phone] Reason for Visit * Reason Comments Follow-up Encounter Details Date Type Department Care Team ([facility] st Contact Info) Description 07/20/2014 10:30 EST Office Visit [facility] Infectious Disease [address] [address] Juli Franz MD AIDS (acquired immune deficiency [...] mg tabletIndications:A IDS (acquired immune deficiency syndrome) ([facility]),Encounter for long-term (current) use of other medications Take 1 Tab by mouth daily. 30 Tab 3 07/20/2014 05/31/2015 ritonavir (NORVIR) 100 mg tabletIndications:A IDS (acquired immune deficiency syndrome) ([facility]),Encounter for long-term (current) use of other medications Take 1 Tab by mouth every 24 hours. 30 Tab 3 07/20/2014 05/31/2015 Raltegravir (ISENTRESS) 400 mg tabletIndications:A IDS (acquired immune deficiency syndrome) ([facility]),Encounter for long-term (current) use of other medications Take 1 Tab by mouth 2 times daily. 60 Tab 3 07/20/2014 05/31/2015 lamiVUDine (EPIVIR) 300 mg tabletIndications:A IDS (acquired immune deficiency syndrome) ([facility]),Encounter for long-term (current) use of other medications Take 1 Tab by mouth daily. 30 Tab 3 07/20/2014 05/31/2015 atazanavir (REYATAZ) 300 mg capsuleIndications: AIDS (acquired immune deficiency syndrome) ([facility]),Encounter for long-term (current) use of other medications Take 1 Cap by mouth daily. 30 Cap 3 07/20/2014 05/31/2015 documented in this encounter Progress Notes * Lavonne gN - 07/21/2014 1019 EST Mailed office note, med list and lab orders to Hanane Pollock. * Juli Franz MD - 07/20/2014 1041 EST [facility] FOLLOWUP NOTE DOS 07/20/2014 Last [...] Diagnoses Diagnosis AIDS (acquired immune deficiency syndrome) ([facility])- Primary Human immunodeficiency virus [HIV] [...] 300 mg capsuleIndications:AIDS (acquired immune deficiency syndrome) ([facility]),Encounter for long-term (current) use of other medications Take 1 Cap by mouth daily. Reorder 03/30/2014 07/20/2014 lamiVUDine (EPIVIR) 300 mg tabletIndications:AIDS (acquired immune deficiency syndrome) ([facility]),Encounter for long-term (current) use of other medications Take 1 Tab by mouth daily. Reorder 03/30/2014 07/20/2014 Raltegravir (ISENTRESS) 400 mg tabletIndications:AIDS (acquired immune deficiency syndrome) ([facility]),Encounter for long-term (current) use of other medications Take 1 Tab by mouth 2 times daily. Reorder 03/30/2014 07/20/2014 ritonavir (NORVIR) 100 mg tabletIndications:AIDS (acquired immune deficiency syndrome) ([facility]),Encounter for long-term (current) use of other medications Take 1 Tab by mouth every 24 hours. Reorder 03/30/2014 07/20/2014 tenofovir (VIREAD) 300 mg tabletIndications:AIDS (acquired immune deficiency syndrome) ([facility]),Encounter for long-term (current) use of other medications Take 1 Tab by mouth daily. Reorder 03/30/2014 07/20/2014 documented as of this encounter Care Teams Stockbroking Dealer Relationship Specialty Start Date End Date Hanane Pollock NP [facility] [address] [place] [address] PCP - General 01/30/09 02/23/19 documented as of this encounter
--- OUTSIDE RECORDS SUMMARY | 2024-07-28 15:09 | XMS_ITS | Encounter Summary ---
Author Organization [facility] Address [address] [place] [address] Care Team Providers Care Dog Boarder Name Role Phone Hanane Pollock NP Primary Care Provider Reason for Visit * Reason Comments Follow-up Encounter Details Date Type Department Care Team (Latest Contact Info) Description 11/15/2015 9:30 EDT Office Visit [facility] Infectious Disease - [address] [address] Juli rFanz MD Acquired immunodeficiency syndrome ([facility]) (Primary Dx); Encounter for long-term current use of high risk medication; Chronic hepatitis B (CMS-HCC) ([facility]) Social History Tobacco Use Types Packs/Day [...] Juli Franz MD - 11/15/2015 0859 EDT [facility] FOLLOWUP NOTE DOS 11/15/2015 Last seen: [...] usually + MJ daily Lives with his correction [...] 4 weeks and FU with me in [facility]. 2. Tobacco use - He [...] - 11/15/20152046 EDTAssociated Problem(s): Acquired immunodeficiency syndrome ([facility]) HIV/AIDS - h/o cryptococcal meningitis ART [...] delta documented in this encounter Care Teams Dog Boarder Relationship Specialty Start Date End Date Hanane Pollock NP [facility] [address] [place], [place] [id number] PCP - General 01/30/09 02/23/19 documented as of this encounter
--- OUTSIDE RECORDS SUMMARY | 2024-07-28 15:09 | XMS_ITS | Encounter Summary ---
Author Organization [facility] Address [address] [place] [address] Care Team Providers Care Case Technician Name Role Phone Hanane Pollock NP Primary Care Provider [phone] Reason for Visit * Reason Onset Date Comments Appointment Related 04/27/2018 Encounter Details Date Type Department Care Team (Late st Contact Info) Description 04/27/2018 Telephone [facility] General Surgery - [facility] [address] [place] [address] Bharat Dowd MD 111 [facility], [address] [place] [address] Appointment Related Social History Tobacco [...] encounter Miscellaneous Notes * Telephone Encounter - SosaNakia marquez - 04/27/2018 6554 EDT Calling for his partner to make colo appointment as directed by the letter sent out. 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 documented in this encounter Plan of Treatment Not on file documented as of this encounter Visit Diagnoses Not on filedocumented in this encounter Care Teams Case Technician Relationship Specialty Start Date End Date Hanane Pollock NP [facility] [address] [place] [address] PCP - General 01/30/09 02/23/19 documented as of this encounter
--- OUTSIDE RECORDS SUMMARY | 2024-07-28 15:09 | XMS_ITS | Encounter Summary ---
Author Organization [facility] Address [address] [place] [address] Care Team Providers Care Vice President Business Development Name Role Phone Hanane Pollock NP Primary Care Provider [phone] Encounter Details Date Type Department Care Team (Late st Contact Info) Description 11/04/2013 Orders Only [facility] Infectious Disease - [address] [address] Juli Franz MD Social History Tobacco Use [facility] Glucose, Serum, External 89 70 - 100 mg/dL [facility] Albumin, External 4.5 3.4 - 5.0 g/dL [facility] Total Alkaline Phosphatase, External 85 46 - 116 U/L [facility] ALT, External 45 12 - 78 U/L [facility] AST, External 19 15 - 37 U/L [facility] BUN, External 16 7 - 18 mg/dL [facility] Comment:Corrected reference ranges 11/04/13 at 1842. Calculated Calcium, External Not given [facility] Calcium, External 9.1 8.5 - 10.1 mg/dL [facility] Chloride, External 103 98 - 107 mmol/L [facility] CO2, External 28.6 21.0 - 32.0 mmol/L [facility] Creatinine, External 1.2 0.8 - 1.3 mg/dL [facility] Fasting?, External Unknown [facility] Potassium, External 4.3 3.5 - 5.1 mmol/L [facility] Sodium, External 140 136 - 145 mmol/L [facility] Total Protein, External 7.4 6.4 - 8.2 g/dL [facility] Bilirubin, Total, External 1.56(A) 0.2 - 1.0 mg/dL [facility] Comment:See scans in PRISM f or further interpretation. Blood specimen (specimen) 11/01/2013 11:56 EDT us Juli Franz MD CHEMISTRY & BLOOD GAS ORDERABL ES Final Result [facility] * PHOSPHORUS (11/01/2013 11:56 EDT) Pathologist [facility] Phosphorus, External 3.0 2.5 - 4.9 mg/dL [facility] Blood specimen (specimen) 11/01/2013 11:56 EDT us Juli Franz MD CHEMISTRY & BLOOD GAS ORDERABL ES Final Result [facility] * (ABNORMAL) HEMAGRAM AND DIFFERENTIAL (11/01/2013 11:56 EDT) WBC, External 8.53 4.4 - 10.8 k/cumm [facility] RBC, External 4.83 4.50 - 6.00 m/cumm [facility] Hemoglobin, External 16.5 13.5 - 17.5 g/dL [facility] HCT, External 47.2 40.0 - 50.0 % [facility] MCV, External 97.7(A) 80 - 95 fL [facility] MCH, External 34.2(A) 27.0 - 33.0 pg [facility] MCHC, External 35.0 32.0 - 36.0 % [facility] PLT, External 213 130 - 400 x1000/uL [facility] RDW-CV, External 13.2 11.8 - 14.1 % [facility] Neutrophils, External 52.6 40 - 74 % [facility] Lymphocytes, External 35.1 19 - 44 % [facility] Monocytes, External 8.2 3.0 - 10.0 % [facility] Eosinophils, External 2.8 1 - 7.0 % [facility] Basophils, External 1.1 0.0 - 2.0 % [facility] ABS Neutrophils, External 4.49 1.2 - 6.7 k/cumm [facility] ABS Lymphs, External 2.99 1.2 - 3.4 k/cumm [facility] ABS Monocytes, External 0.70 0.11 - 0.7 k/cumm [facility] ABS Eosinophils, External 0.24 0 - 0.7 k/cumm [facility] ABS Basophils, External 0.09 0.0 - 0.2 k/cumm [facility] Comment:See scans in PRISM f or further interpretation. Blood specimen (specimen) 11/01/2013 11:56 EDT us Juli Franz MD PACKAGES & DNA PROBE ORDERABLE S Final Result [facility] * CK (11/01/2013 11:56 EDT) CK, External 132 39 - 308 U/L [facility] Blood specimen (specimen) 11/01/2013 11:56 EDT us Juli Franz MD CHEMISTRY & BLOOD GAS ORDERABL ES Final Result Performing Organization Address City/[facility]/ZIP Co de Phone Number [facility] * COMPREHENSIVE METABOLIC PANEL (ONCOLOGY USE ONLY-INC MG: DRAW GREEN TOP) (11/01/2013 11:56 EDT) Calcium, [facility] Comment:Ordered in error. CO2, [facility] Comment:Ordered in error. AST, [facility] Comment:Ordered in error. ALT, [facility] Comment:Ordered in error. Bilirubin, Total, [facility] Comment:Ordered in error. Creatinine, [facility] Comment:Ordered in error. Calculated Calcium, [facility] Comment:Ordered in error. Anion Gap, [facility] Comment:Ordered in error. Total Protein, [facility] Comment:Ordered in error. Potassium, [facility] Comment:Ordered in error. Total Alkaline Phosphatase, [facility] Comment:Ordered in error. Albumin, [facility] Comment:Ordered in error. BUN, [facility] Comment:Ordered in error. GFR, Calculated, [facility] Comment:Ordered in error. Fasting?, [facility] Comment:Ordered in error. Chloride, External [facility] Comment:Ordered in error. Glucose, Serum, External [facility] Comment:Ordered in error. Sodium, External [facility] Comment:Ordered in error. Magnesium, External [facility] Comment:Ordered in error. Blood specimen (specimen) 11/01/2013 11:56 EDT us Juli Franz MD CHEMISTRY & BLOOD GAS ORDERABL ES Final Result [facility] documented in this encounter Visit Diagnoses Not on filedocumented in this encounter Care Teams Vice President Business Development Relationship Specialty Start Date End Date Hanane Pollock, BANDAGE WRAPPING MACHINE OPERATOR [facility] [address] [place] [address] PCP - General 01/30/09 02/23/19 documented as of this encounter
--- OUTSIDE RECORDS SUMMARY | 2024-07-28 15:09 | XMS_ITS | Encounter Summary ---
Author Organization [facility] Address [address] [place] [address] Care Team Providers Care Museum Archivist Name Role Phone Hanane Pollock NP Primary Care Provider [phone] Reason for Visit * Reason Comments Follow-up Encounter Details Date Type Department Care Team (Latest Contact Info) Description 02/21/2016 9:30 EDT Office Visit [facility] Infectious Disease [address] [address] Juli Franz MD AIDS (acquired immunodeficiency syndrome), [...] Juli Franz MD - 02/21/2016 0921 EDT [facility] FOLLOWUP NOTE DOS 02/21/2016 Last seen: 11/14/2014 SUBJECTIVE: Guanakito presents for reevaluation of his HIV disease and his chronic hepatitis B and C. Having VICK x 1.5 weeks. Generalized head pain. 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 Ears popping today. No nasal congestion. No [...] half-way nephrotoxicity. He has chronic HBV so want [...] more closely. He is a pt at [facility]. Hanane Rossi arranged for him to [...] Diagnosis AIDS (acquired immunodeficiency syndrome), CD4 <=200 ([facility])- Primary Human immunodeficiency virus [HIV] disease Other secondary hypertension New daily persistent headache Chronic hepatitis B ([facility]) Viral hepatitis B without mention of hepatic coma, chronic, without mention of hepatitis delta Tobacco abuse Tobacco use disorder documented in this encounter Historical Medications * This list may reflect changes made after this encounter. acetaminophen (TYLENOL EXTRA STRENGTH) 500 mg tablet Take 1,000 mg by mouth every 12 hours as needed for Pain. added in this encounter Care Teams Museum Archivist Relationship Specialty Start Date End Date Hanane Pollock NP [facility] [address] [place] [address] PCP - General 01/30/09 02/23/19 documented as of this encounter
--- OUTSIDE RECORDS SUMMARY | 2024-07-28 15:09 | XMS_ITS | Encounter Summary ---
Author Organization [facility] Address [address] [place] [address] Care Team Providers Care Microcomputer Support Specialist Name Role Phone Hanane Pollock NP Primary Care Provider [phone] Reason for Visit * Reason Comments Follow-up [...] Date Expiration Date Visits Requested Visits Authorized [id number] Specialty Report Received Specialty Services Required 5 1 1 Encounter Details Date Type Department Care Team (Late st Contact Info) Description 07/20/2015 15:30 EST Office Visit [facility] General Surgery - [address] [address] Bharat Dowd MD [address] [place] [address], [address] [place] [address] Internal hemorrhoids with complication (Primary [...] documented as of this encounter Care Teams Microcomputer Support Specialist Relationship Specialty Start Date End Date Hanane Pollock NP [facility] [address] [place] [address] PCP - General 01/30/09 02/23/19 documented as of this encounter
--- OUTSIDE RECORDS SUMMARY | 2024-07-28 15:09 | XMS_ITS | Encounter Summary ---
Author Organization [facility] Address [address] [place] [address] Care Team Providers Care Office Coordinator Receptionist Name Role Phone Hanane Pollock NP Primary Care Provider [phone] Reason for Visit * Reason Onset Date Comments Medications Refill 12/29/2015 Encounter Details Date Type Department Care Team (Late st Contact Info) Description 12/29/2015 Telephone [facility] Infectious Disease - [address] [address] Juli Franz MD Medications Refill Social History [...] and [facility] #30 with 5 refills to [facility]. * Telephone Encounter - Ceci Fletcher RN [...] - Beena Wayne - 12/29/2015 0844 EDT [facility] patient. Hanane Phill out today. Partner Fernando states that Guanakito needs the following medications refilled TODAY: Viread, Isentress, Norvir, Reyataz, and a new medication that he does not know the name of. [facility] use [facility]. Fernando would like a call back to let him know when it is called in: [phone]. documented in this encounter Plan of Treatment [...] documented as of this encounter Care Teams Office Coordinator Receptionist Relationship Specialty Start Date End Date Hanane Pollock NP [facility] [address] [place] [address] PCP - General 01/30/09 02/23/19 documented as of this encounter
--- OUTSIDE RECORDS SUMMARY | 2024-07-28 15:09 | XMS_ITS | Encounter Summary ---
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 I spoke to [facility] - they order the meds once monthly. Lorie Flo last prescribed the meds 11/2014. They have 2 more refills left on that RX so they have active Rxs at [facility]. documented in this encounter Plan of Treatment Not on file documented as of this encounter Visit Diagnoses Not on filedocumented in this encounter Care Teams Supervisor [place] Relationship Specialty Start Date End Date Hanane Pollock, SOM [facility] [address] [place] [address] PCP - General 01/30/09 02/23/19 documented as of this encounter
--- OUTSIDE RECORDS SUMMARY | 2024-07-28 15:09 | XMS_ITS | Encounter Summary ---
Author Organization [facility] Address [address] [place] [address] Care Team Providers Care Social Sciences Professor Name Role Phone Hanane Pollock NP Primary Care Provider [phone] Reason for Visit * Reason Onset Date Comments Medications Refill 02/14/2017 Encounter Details Date Type Department Care Team (Late st Contact Info) Description 02/14/2017 Telephone [facility] Infectious Disease - [address] [address] Jinny Francisco, RN Medications Refill Social History [...] filedocumented in this encounter Care Teams Social Sciences Professor Relationship Specialty Start Date End Date Hanane Pollock NP [facility] [address] [place] [address] PCP - General 01/30/09 02/23/19 documented as of this encounter
--- OUTSIDE RECORDS SUMMARY | 2024-07-28 15:09 | XMS_ITS | Encounter Summary ---
Author Organization [facility] Address [address] [place] [address] Care Team Providers Care Case Management Assistant Name Role Phone Hanane Pollock NP Primary Care Provider [phone] Encounter Details Date Type Department Care Team (Late st Contact Info) Description 08/01/2014 Orders Only [facility] Infectious Disease - [address] [address] Juli Franz MD Social History Tobacco Use [...] RNA, External Detected <20 copies/mL Undetected copies/mL [facility] Comment:Please see scan medi a in PRISM for furtehr information.Test Performed by: [facility] Blood specimen (specimen) 07/18/2014 9:41 EST us Juli Franz MD CHEMISTRY & BLOOD GAS ORDERABL ES Final Result [facility] documented in this encounter Visit Diagnoses Not on filedocumented in this encounter Care Teams Case Management Assistant Relationship Specialty Start Date End Date Hanane Pollock, SOM [facility] [address] [place] [address] PCP - General 01/30/09 02/23/19 documented as of this encounter
--- OUTSIDE RECORDS SUMMARY | 2024-07-28 15:09 | XMS_ITS | Encounter Summary ---
Author Organization [facility] Address [address] [place] [address] Care Team Providers Care Industrial Aerial Installer Name Role Phone Hanane Pollock NP Primary Care Provider [phone] Encounter Details Date Type Department Care Team (Latest Contact Info) Description 05/22/2017 19:00 EST - 05/22/2017 23:59 EST Hospital Encounter [address] [address] Jocelin, MD Luz Discharge Disposition: Home or Self Care Social [...] Code Departure Means Destination Home or Self Jail documented in this encounter Plan of Treatment Not on file documented as of this encounter Visit Diagnoses Not on filedocumented in this encounter Care Teams Industrial Aerial Installer Relationship Specialty Start Date End Date Hanane Pollock NP [facility] [address] [place] [address] PCP - General 01/30/09 02/23/19 documented as of this encounter
--- OUTSIDE RECORDS SUMMARY | 2024-07-28 15:10 | XMS_ITS | Encounter Summary ---
Author Organization [facility] Address [address] [place] [address] Care Team Providers Care Commissioning Manager Name Role Phone Hanane Pollock NP Primary Care Provider Reason for Visit * Reason Onset Date Comments Other 05/18/2010 medication Encounter Details Date Type Department Care Team (Late Contact Info) Description 05/18/2010 Telephone [facility] Infectious Disease - [address] [address] Juli Franz MD Other (medication) Social History Tobacco Use Types Packs/Day Years Used Date Smoking Tobacco: Never Assessed Sex and Gender Information Value Date Recorded Sex Assigned at Not on file Legal Sex Male 18:27 EST Gender Identity Not on file Sexual Orientation Not on file documented as of this encounter Miscellaneous Notes * Telephone Encounter - Jesika Srinivasan RN - 05/18/[address] Franz will e-scribe the med for him. Pt has been notified. * Telephone Encounter - Lavonne Ng - 05/18/2010 1327 EDT Pt stated script for ointment for his ear was suppose to be called into [facility] pharmacy in [facility] a week ago. Stated they do not have script as of yet. Their phone is [phone]. Pt's phone is [phone]. documented in this encounter Plan of Treatment Not on file documented as of this encounter Visit Diagnoses Not on filedocumented in this encounter Care Teams Commissioning Manager Relationship Specialty Start Date End Date Hanane Pollock NP [facility] [address] [place] [address] PCP - General 01/30/09 02/23/19 documented as of this encounter
--- OUTSIDE RECORDS SUMMARY | 2024-07-28 15:10 | XMS_ITS | Encounter Summary ---
Author Organization [facility] Address [address] [place] [address] Care Team Providers Care Air Press Operator Name Role Phone Hanane Pollock AERONAUTICAL RESEARCH ENGINEER Primary Care Provider [phone] Reason for Visit * Reason Onset Date Comments Medications Refill 06/23/2012 Encounter Details Date Type Department Care Team (Late st Contact Info) Description 06/23/2012 Refill [facility] Infectious Disease - [facility] [address] [place] [address] [place] Franz MD Medications Refill Social History [...] EST Notified partner Fernando that Jeane from [facility] notified [facility] that Guanakito could have 1 [...] listing of what that would be. Uses [facility]. Fernando would like a call back when this has been called in at [phone]. Fernando states he needs thiscalled in today. documented in this encounter Plan of Treatment Not on file documented as of this encounter Visit Diagnoses Not on filedocumented in this encounter Care Teams Air Press Operator Relationship Specialty Start Date End Date Hanane Pollock, AERONAUTICAL RESEARCH ENGINEER [facility] [address] [place] [address] PCP - General 01/30/09 02/23/19 documented as of this encounter
--- OUTSIDE RECORDS SUMMARY | 2024-07-28 15:10 | XMS_ITS | Encounter Summary ---
Author Organization [facility] Address [address] [place] [address] Care Team Providers Care Core Winding Operator Name Role Phone Hanane Pollock NP Primary Care Provider [phone] Encounter Details Date Type Department Care Team (Late st Contact Info) Description 05/18/2010 Orders Only [facility] Infectious Disease - [address] [id number] Juli Franz MD Otitis externa, chronic; AIDS (acquired immune deficiency syndrome) ([facility]) Social History Tobacco Use Types Packs/Day Years [...] otitis externa AIDS (acquired immune deficiency syndrome) ([facility]) Human immunodeficiency virus [HIV] disease documented in this encounter Care Teams Core Winding Operator Relationship Specialty Start Date End Date Hanane Pollock NP [facility] [address] [place], [place] [address] PCP - General 01/30/09 02/23/19 documented as of this encounter
--- OUTSIDE RECORDS SUMMARY | 2024-07-28 15:10 | XMS_ITS | Encounter Summary ---
Author Organization [facility] Address [address] [place] [address] Care Team Providers Care Facilities Technician Name Role Phone Hanane Pollock NP Primary Care Provider [phone] Encounter Details Date Type Department Care Team (Late st Contact Info) Description 04/08/2013 Orders Only [facility] Infectious Disease - [address] [address] Juli Franz MD Social History Tobacco Use [...] GFR, Calculated, External >=60.00 >=60.00 mL/min/1 .73m2 [facility] Glucose, Serum, External 74 70 - 100 mg/dL [facility] Albumin, External 4.7 3.4 - 5.0 g/dL [facility] Total Alkaline Phosphatase, External 103 38 - 126 U/L [facility] ALT, External 59 12 - 78 U/L [facility] AST, External 26 15 - 37 U/L [facility] BUN, External 18 7 - 18 mg/dL [facility] Calculated Calcium, External Not given MICHEAL RN [facility] Calcium, External 9.1 8.5 - 10.1 mg/dL [facility] Chloride, External 104 98 - 107 mmol/L [facility] CO2, External 27.8 21.0 - 32.0 mmol/L [facility] Creatinine, External 1.2 0.8 - 1.3 mg/dL [facility] Fasting?, External Unknown [facility] Potassium, External 4.2 3.5 - 5.1 mmol/L [facility] Sodium, External 139 136 - 145 mmol/L [facility] Total Protein, External 7.5 6.4 - 8.2 g/dL [facility] Bilirubin, Total, External 2.63(A) 0.2 - 1.0 mg/dL [facility] Comment:Please see scanned r eport in PRISM for further interpretation Blood specimen (specimen) 02/26/2013 12:45 EDT us Juli Franz MD CHEMISTRY & BLOOD GAS ORDERABL ES Edited [facility] * CK (02/26/2013 12:43 EDT) Pathologist [facility] CK, External 172 39 - 308 U/L [facility] Blood specimen (specimen) 02/26/2013 12:43 EDT us Juli Franz MD CHEMISTRY & BLOOD GAS ORDERABL ES Final Result [facility] * (ABNORMAL) HEMAGRAM AND DIFFERENTIAL (02/26/2013 12:43 EDT) WBC, External 8.73 4.4 - 10.8 k/cumm [facility] RBC, External 4.81 4.50 - 6.00 m/cumm [facility] Hemoglobin, External 16.5 13.5 - 17.5 g/dL [facility] HCT, External 47.3 40.0 - 50.0 % [facility] MCV, External 98.3(A) 80 - 95 fL [facility] MCH, External 34.3(A) 27.0 - 33.0 pg [facility] MCHC, External 34.9 32.0 - 36.0 % [facility] PLT, External 204 130 - 400 x1000/uL [facility] RDW-CV, External 13.5 11.8 - 14.1 % [facility] Neutrophils, External 51.1 40 - 74 % [facility] Lymphocytes, External 36.1 19 - 44 % [facility] Monocytes, External 8.5 3.0 - 10.0 % [facility] Eosinophils, External 3.6 1 - 7.0 % [facility] Basophils, External 0.6 0.0 - 2.0 % [facility] ABS Neutrophils, External 4.47 1.2 - 6.7 k/cumm [facility] ABS Lymphs, External 3.15 1.2 - 3.4 k/cumm [facility] ABS Monocytes, External 0.74(A) 0.11 - 0.7 k/cumm [facility] ABS Eosinophils, External 0.31 0 - 0.7 k/cumm [facility] ABS Basophils, External 0.05 0.0 - 0.2 k/cumm [facility] Comment:Please see scanned r eport in PRISM for further interpretation Blood specimen (specimen) 02/26/2013 12:43 EDT us Juli Franz MD PACKAGES & DNA PROBE ORDERABLE S Final Result Performing Organization Address City/[facility]/ZIP Co de Phone Number [facility] * (ABNORMAL) LIPID PROFILE (INCLUDES CHOLESTEROL, TRIGLYCERIDES, HDL, LDL) (02/26/2013 12:43 EDT) Cholesterol, External 154 50 - 200 mg/dL [facility] Triglycerides, External 185(A) 15 - 150 mg/dL [facility] HDL, External 29(A) 40 - 60 mg/dL [facility] LDL, External 94 mg/dL [facility] Chol/HDL Ratio, External Not given [facility] Fasting?, External Unknown N [facility] Comment:Please see scanned r eport in PRISM for further interpretation Blood specimen (specimen) 02/26/2013 12:43 EDT Juli Franz MD CHEMISTRY & BLOOD GAS ORDERABL ES Final Result Performing Organization Address [facility] Co de Phone Number [facility] * PHOSPHORUS (02/26/2013 12:43 EDT) Phosphorus, External 3.6 2.5 - 4.9 mg/dL [facility] Blood specimen (specimen) 02/26/2013 12:43 EDT us Juli Franz MD CHEMISTRY & BLOOD GAS ORDERABL ES Final Result [facility] documented in this encounter Visit Diagnoses Not on filedocumented in this encounter Care Teams Facilities Technician Relationship Specialty Start Date End Date Hanane Pollock NP [facility] [address] [place] [address] PCP - General 01/30/09 02/23/19 documented as of this encounter
--- OUTSIDE RECORDS SUMMARY | 2024-07-28 15:10 | XMS_ITS | Encounter Summary ---
Author Organization [facility] Address [address] [place] [address] Care Team Providers Care Manager Actuarial Name Role Phone Hanane Pollock NP Primary Care Provider [phone] Encounter Details Date Type Department Care Team (Late st Contact Info) Description 05/05/2010 Orders Only [facility] Infectious Disease - [address] [address] Juli Franz MD HCV infection; Chronic active [...] above interpretation and agree with the findings. us Juli Franz MD IMG IR ORDERABLES Final [...] medications documented in this encounter Care Teams Manager Actuarial Relationship Specialty Start Date End Date Hanane Pollock NP [facility] [address] [place] [address] PCP - General 01/30/09 02/23/19 documented as of this encounter
--- OUTSIDE RECORDS SUMMARY | 2024-07-28 15:10 | XMS_ITS | Encounter Summary ---
Author Organization [facility] Address [address] [place] [address] Care Team Providers Care Sql Ssis Developer Name Role Phone Hanane Pollock NP Primary Care Provider [phone] Reason for Visit * Reason Comments HIV Positive/AIDS Encounter Details Date Type Department Care Team (Late st Contact Info) Description 01/29/2012 10:30 EDT Office Visit [facility] Infectious Disease [address] [address] Juli Franz MD AIDS (acquired immune deficiency [...] to Hanane Pollock. Faxed lab orders to [facility]. * Juli Franz MD - 01/29/2012 1038 EDT [facility] FOLLOWUP NOTE DOS:01/29/2012 Last seen: 10/02/2011 SUBJECTIVE: [...] immunization. He saw Hanane last week at [place] and his BP was nl. He has [...] coma documented in this encounter Care Teams Sql Ssis Developer Relationship Specialty Start Date End Date Hanane Pollock NP [facility] [address] [place] [address] PCP - General 01/30/09 02/23/19 documented as of this encounter
--- OUTSIDE RECORDS SUMMARY | 2024-07-28 15:10 | XMS_ITS | Encounter Summary ---
Author Organization [facility] Address [address] [place] [address] Care Team Providers Care Director Of Oncology Name Role Phone Hanane Pollock NP Primary Care Provider [phone] Reason for Visit * Reason Onset Date Comments Medications Refill 11/20/2010 Encounter Details Date Type Department Care Team (Late st Contact Info) Description 11/20/2010 Telephone [facility] Infectious Disease - [facility] [address] [place] [address] Juli Franz MD Medications Refill Social History Tobacco Use Types Packs/Day Years Used Date Smoking Tobacco: Never Assessed Sex and Gender Information Value Date Recorded Sex Assigned at Not on file Legal Sex Male 18:27 EST Gender Identity Not on file Sexual Orientation Not on file documented as of this encounter Miscellaneous Notes * Telephone Encounter - Ceci Fletcher RN - 11/21/2010 4695 EDT Guanakito fell on down some stairs [...] Telephone Encounter - Lavonne Ng - 11/20/2010 1544 EDT Kory(Fernando), partner, stated Guanakito sees Dr Franz in [facility]. Stated Hanane Pollock is out today. Statedpt fell on stairs last week and went to ER. Was given about 6 pain pills and would like a refill. Believes he was given Hydrocodone. Guanakito can be reached at [phone]. documented in this encounter Plan of Treatment Not on file documented as of this encounter Visit Diagnoses Not on filedocumented in this encounter Care Teams Director Of Oncology Relationship Specialty Start Date End Date Hanane Pollock, PSYCH NP [facility] [address] [place], [place] [address] PCP - General 01/30/09 02/23/19 documented as of this encounter
--- OUTSIDE RECORDS SUMMARY | 2024-07-28 15:10 | XMS_ITS | Encounter Summary ---
Author Organization [facility] Address [address] [place] [address] Care Team Providers Care Fur Drummer Name Role Phone Hanane Pollock NP Primary Care Provider [phone] Reason for Visit * Reason Comments Follow-up Encounter Details Date Type Department Care Team (Latest Contact Info) Description 03/03/2013 9:45 EDT Office Visit [facility] Infectious Disease [address] [address] Juli Franz MD Acquired immunodeficiency syndrome (CMS-HCC) [...] Juli Franz MD - 03/03/2013 1308 EDT [facility] FOLLOWUP NOTE DOS 03/03/2013 Last seen: 10/28/2012 SUBJECTIVE: Guanakito presents for reevaluation of his HIV disease and his chronic hepatitis B and C. Since he was last seen he has been feeling fairly well. He had a tooth infection last week and was seen by Hanane at [place] and treated with clindamycin and narcotic analgesics. [...] continue the Epivir. I called Kinosiel in [facility] and they reported that they would [...] disorder documented in this encounter Care Teams Fur Drummer Relationship Specialty Start Date End Date Hanane Pollock NP [facility] [address] [place] [address] PCP - General 01/30/09 02/23/19 documented as of this encounter
--- OUTSIDE RECORDS SUMMARY | 2024-07-28 15:10 | XMS_ITS | Encounter Summary ---
Author Organization [facility] Address [address] [place] [address] Care Team Providers Care Assistant Director Of Public Works Name Role Phone Hanane Pollock NP Primary Care Provider [phone] Reason for Visit * Reason Onset Date Comments Medications Refill 04/06/2013 Encounter Details Date Type Department Care Team (Late st Contact Info) Description 04/06/2013 Refill [facility] Infectious Disease - [facility] [address] [place] [address] Juli Franz MD Medications Refill Social History [...] 04/06/2013 1057 EDT Guanakito is seen in [facility]. Partner Greg, states they've called and left [...] Franz author) E-RX all HIV Medications to [facility] in [facility]. Seen in [facility] clinic every 4-5 months consistently. Next appt. [...] as of this encounter Care Teams Assistant Director Of Public Works Relationship Specialty Start Date End Date Hanane Pollock NP [facility] [address] [place] [address] PCP - General 01/30/09 02/23/19 documented as of this encounter
--- OUTSIDE RECORDS SUMMARY | 2024-07-28 15:10 | XMS_ITS | Encounter Summary ---
Author Organization [facility] Address [address] [place] [address] Care Team Providers Care Family Law Legal Assistant Name Role Phone Hanane Pollock NP Primary Care Provider [phone] Reason for Visit * Reason Comments HIV Positive/AIDS Encounter Details Date Type Department Care Team (Late st Contact Info) Description 10/02/2011 10:00 EDT Office Visit [facility] Infectious Disease [address] [address] Juli Franz MD AIDS (acquired immune deficiency [...] Juli Franz MD - 10/02/2011 1040 EDT [facility] FOLLOWUP NOTE DOS:10/02/2011 Last seen: 05/08/2011 SUBJECTIVE: Guanakito presents for reevaluation of his HIV disease and his chronic hepatitis. Since he was last seen he has had a couple of mild URIs. He did see Hanane Rossi recently at [place] because he feels that his abdominal girth [...] immunization. He saw Hanane last week at [facility] and his BP was nl. He has [...] 10/02/2011 added in this encounter Care Teams Family Law Legal Assistant Relationship Specialty Start Date End Date Hanane Pollock NP [facility] [address] [place] [address] PCP - General 01/30/09 02/23/19 documented as of this encounter
--- OUTSIDE RECORDS SUMMARY | 2024-07-28 15:10 | XMS_ITS | Encounter Summary ---
Author Organization [facility] Address [address] [place] [address] Care Team Providers Care Wood Miller Name Role Phone Hanane Pollock NP Primary Care Provider [phone] Encounter Details Date Type Department Care Team (Late st Contact Info) Description 07/21/2013 Orders Only [facility] INFECTIOUS DISEASE [address] [place], [place] [address] Juli Franz MD AIDS (acquired immune deficiency syndrome) ([facility]) (Primary Dx) Social History Tobacco Use Types [...] mg tabletIndications:A IDS (acquired immune deficiency syndrome) ([facility]) Take 1 Tab by mouth daily. 30 Tab 3 07/21/2013 11/17/2013 ritonavir (NORVIR) 100 mg tabletIndications:A IDS (acquired immune deficiency syndrome) ([facility]) Take 1 Tab by mouth every 24 hours. 30 Tab 3 07/21/2013 11/17/2013 Raltegravir (ISENTRESS) 400 mg tabletIndications:A IDS (acquired immune deficiency syndrome) ([facility]) Take 1 Tab by mouth 2 [...] documented as of this encounter Care Teams Wood Miller Relationship Specialty Start Date End Date Hanane Pollock NP [facility] [address] [place] [address] PCP - General 01/30/09 02/23/19 documented as of this encounter
--- OUTSIDE RECORDS SUMMARY | 2024-07-28 15:10 | XMS_ITS | Encounter Summary ---
Author Organization [facility] Address [address] [place] [address] Care Team Providers Care Intervention Manager Name Role Phone Hanane Pollock NP Primary Care Provider [phone] Encounter Details Date Type Department Care Team (Late st Contact Info) Description 05/18/2008 Before PRISM Converted Visit (Maple) [facility] conversion [address] [place] [address] Juli Franz MD Social History Tobacco Use [...] 1436 EDT DIVISION OF INFECTIOUS DISEASE - [facility] PROGRESS/FOLLOWUP NOTE - 05/18/2008 DONNELL [...] Franz MD - LUIS ARMANDO Job ID: [id number] Doc ID: [id number] cc: [facility] Hanane Pollock NP *[facility] documented in this encounter Plan of Treatment Not on file documented as of this encounter Visit Diagnoses Not on filedocumented in this encounter Care Teams Intervention Manager Relationship Specialty Start Date End Date Hanane Pollock NP [facility] [address] [place] [address] PCP - General 01/30/09 02/23/19 documented as of this encounter
--- OUTSIDE RECORDS SUMMARY | 2024-07-28 15:10 | XMS_ITS | Encounter Summary ---
Author Organization [facility] Address [address] [place] [address] Care Team Providers Care Store Lead Name Role Phone Hanane Pollock NP Primary Care Provider [phone] Encounter Details Date Type Department Care Team (Late st Contact Info) Description 05/15/2010 Results Only [facility] Laboratory Services - [facility] ([facility]) [address] [place], [place] [address] Loida Miranda MD [address] [facility] [address] [place] [address] Social History Tobacco Use Types [...] ? KALEB CEDILLO ? Accession #: ? [id number] ? : ? 1970 (Age: 40) ??M ? Collect Date: ? 05/15/2010 ? Location: ? [facility] ? Receive Date: ? 05/15/2010 ? Provider: MICHAEL KIRKPATRICK MD ? Copy to: NEW B RAMUNDO MD ? HANANE G TANEY SPECIAL EVENTS PLANNER ? LOIDA M SCRIVER MD ? Final [...] stain is negative for PAS positive globules. Web Content Coordinator sections of this case have been reviewed [...] Fi nal Result [facility] [address] [place] [address] documented in this encounter Visit Diagnoses Not on filedocumented in this encounter Care Teams Store Lead Relationship Specialty Start Date End Date Hanane Pollock, SPECIAL EVENTS PLANNER [facility] [address] [place] [address] PCP - General 01/30/09 02/23/19 documented as of this encounter
--- OUTSIDE RECORDS SUMMARY | 2024-07-28 15:10 | XMS_ITS | Encounter Summary ---
Author Organization [facility] Address [address] [place] [address] Care Team Providers Care Sheet Sorter Name Role Phone Unavailable Primary Care Provider Unavailabl e Encounter Details Date Type Department Care Team (Late st Contact Info) Description 09/12/2008 Before PRISM Converted Visit (Maple) [facility] - Maple conversion [address] [place] [address] Guevara Haney MD [address] [place] [address] Social History Tobacco Use Types Packs/Day Years [...] reading/interpreti ng unformatted reports. ? Name: ? AILEEN, KALEB ? Accession #: ? [id number] ? : ? 1970 (Age: 38) ??M ? Collect Date: ? 09/12/2008 ? Location: ? [facility] ? Receive Date: ? 09/12/2008 ? Provider: GUEVARA HANEY MD ? Copy to: SAMI G TANEY LIBRARY SERIALS ASSISTANT ? NEW B RAMUNDO MD ? Final [...] bleeding ? Gross Description: ? Received in [employer]'s fixative labelled Snide and sigmoid 30 cm bx. ?? The specimen consists of a single 0.2 x 0.2 x 0.2 cm pink-lazcano irregular soft ? tissue, submitted in toto in (A). ? Received in [employer]'s fixative labelled Snide and rectal bx. ??The specimen consists of two pink-lazcano, irregular soft tissues, each 0.3 x 0.2 x 0.1 cm, ? submitted in toto in (B). ??(Enma Patrick)/mpl ? End of Report ? [facility] 09/12/2008 09/12/2008 9:0 7 EST us Guevara Haney MD PATHOLOGY ORDERABLES Final Result [facility] [address] [place] [address] documented in this encounter Visit Diagnoses Not on filedocumented in this encounter
--- OUTSIDE RECORDS SUMMARY | 2024-07-28 15:10 | XMS_ITS | Encounter Summary ---
Author Organization [facility] Address [address] [place] [address] Care Team Providers Care Controlled Area Checker Name Role Phone Hanane Pollock NP Primary Care Provider [phone] Reason for Visit * Reason Comments Follow-up Encounter Details Date Type Department Care Team (Latest Contact Info) Description 05/08/2011 Documentation Visit [facility] Infectious Disease - [facility] [address] [place] [address] Juli Franz MD AIDS (acquired immune deficiency [...] to Hanane Pollock. Faxed lab orders to [facility]. * Juli Franz MD - 05/08/2011 1822 EDT [facility] PROGRESS/FOLLOWUP NOTE - 05/08/2011 Last seen: [...] the disk [facility] and had them loaded in our [...] reviewed in person with the radiologist at [facility]. Pt had rib films in 11/2010 which [...] field documented in this encounter Care Teams Controlled Area Checker Relationship Specialty Start Date End Date Hanane Pollock NP [facility] [address] [place] [address] PCP - General 01/30/09 02/23/19 documented as of this encounter
--- OUTSIDE RECORDS SUMMARY | 2024-07-28 15:10 | XMS_ITS | Encounter Summary ---
Author Organization [facility] Address [address] [place] [address] Care Team Providers Care Exercise Physiologist Name Role Phone Sami Pollock NP Primary Care Provider [phone] Encounter Details Date Type Department Care Team (Late st Contact Info) Description 05/23/2011 [facility] [address] [address] Jeremi Simmons PA-C [address] [place] [address], [address] [place] [address] Social History Tobacco Use Types [...] ? KALEB CEDILLO ? Accession #: ? [id number] : ? 1970 (Age: 41) ??M ?Collect Date: ? 05/23/2011 Location: ? [facility] ? Receive Date: ? 05/23/2011 Provider: ? JEREMI CORNEJO Copy to: ?SAMI CHRISTIANSON MD ? CYTOLOGIC DIAGNOSIS: ? Lung, [...] microbiology report for further diagnostic information. ??(Dr. Palomares)/mpl Document reviewed and electronically signed by: ? [...] [facility] 05/23/2011 05/23/2011 12: 18 EST us Jeremi Simmons PA-C PATHOLOGY ORDERABLES Nupur rubio Result [facility] [address] [place] [address] documented in this encounter Visit Diagnoses Not on filedocumented in this encounter Care Teams Exercise Physiologist Relationship Specialty Start Date End Date Sami Pollock NP [facility] [address] [place], [place] [id number] PCP - General 01/30/09 02/23/19 documented as of this encounter
--- OUTSIDE RECORDS SUMMARY | 2024-07-28 15:10 | XMS_ITS | Encounter Summary ---
Author Organization [facility] Address [address] [place] [address] Care Team Providers Care Director Oncology Name Role Phone Hanane Pollock NP Primary Care Provider [phone] Encounter Details Date Type Department Care Team (Late st Contact Info) Description 03/19/2013 Orders Only [facility] Infectious Disease - [address] [address] Juli Franz MD Social History Tobacco Use [...] EDT) HIV1 RNA, External 178 Undetected copies/mL [facility] Comment:Please see scanned r eport in PRISM for further interpretation Blood specimen (specimen) 02/26/2013 12:43 EDT Juli Franz MD CHEMISTRY & BLOOD GAS ORDERABL ES Final Result [facility] documented in this encounter Visit Diagnoses Not on filedocumented in this encounter Care Teams Director Oncology Relationship Specialty Start Date End Date Hanane Pollock NP [facility] [address] [place] [address] PCP - General 01/30/09 02/23/19 documented as of this encounter
--- OUTSIDE RECORDS SUMMARY | 2024-07-28 15:10 | XMS_ITS | Encounter Summary ---
Author Organization [facility] Address [address] [place] [address] Care Team Providers Care Juvenile Justice Specialist Name Role Phone Hanane Pollock NP Primary Care Provider [phone] Reason for Visit * Reason Comments Follow-up Encounter Details Date Type Department Care Team (Latest Contact Info) Description 06/03/2012 9:45 EST Office Visit [facility] Infectious Disease - [address] [address] Juli Franz MD Human immunodeficiency virus (HIV) disease ([facility]); Chronic active type B viral hepatitis (CMS-HCC) [...] 06/05/2012 0838 EST Faxed lab orders to [facility]. Mailed copy of office note to [facility]. * Juli Franz MD - 06/03/[address] [facility] FOLLOWUP NOTE DOS 06/03/2012 Last [...] Diagnoses Diagnosis Human immunodeficiency virus (HIV) disease ([facility]) Human immunodeficiency virus [HIV] disease Chronic active type B viral hepatitis ([facility]) Viral hepatitis B without mention of hepatic [...] 07/20/2015 added in this encounter Care Teams Juvenile Justice Specialist Relationship Specialty Start Date End Date Hanane Pollock NP [facility] [address] [place] [address] PCP - General 01/30/09 02/23/19 documented as of this encounter
--- OUTSIDE RECORDS SUMMARY | 2024-07-28 15:10 | XMS_ITS | Encounter Summary ---
Author Organization Health system Address [address] [place] [address] Care Team Providers Care Compensation Consulting Manager Name Role Phone Hanane Pollock NP Primary Care Provider [phone] Encounter Details Date Type Department Care Team (Late st Contact Info) Description 06/26/2012 Orders Only [facility] Infectious Disease - [address] [address] Juli Franz MD AIDS (acquired immune deficiency syndrome) ([facility]) (Primary Dx) Social History Tobacco [...] mg capsuleIndications: AIDS (acquired immune deficiency syndrome) ([facility]) Take 1 Cap by mouth daily. 30 Cap 3 06/26/2012 10/28/2012 ritonavir (NORVIR) 100 mg tabletIndications:A IDS (acquired immune deficiency syndrome) ([facility]) Take 1 Tab by mouth every 24 hours. 30 Tab 3 06/26/2012 10/28/2012 lamivudine (EPIVIR) 300 mg tabletIndications:A IDS (acquired immune deficiency syndrome) ([facility]) Take 1 Tab by mouth daily. 30 Tab 3 06/26/2012 10/28/2012 tenofovir (VIREAD) 300 mg tabletIndications:A IDS (acquired immune deficiency syndrome) ([facility]) Take 1 Tab by mouth daily. 30 [...] documented as of this encounter Care Teams Compensation Consulting Manager Relationship Specialty Start Date End Date Hanane Pollock NP [facility] [address] [place] [address] PCP - General 01/30/09 02/23/19 documented as of this encounter
--- OUTSIDE RECORDS SUMMARY | 2024-07-28 15:10 | XMS_ITS | Encounter Summary ---
Author Organization [facility] Address [address] [place] [address] Care Team Providers Care Cinder Dump Crane Operator Name Role Phone Hanane Pollock NP Primary Care Provider [phone] Encounter Details Date Type Department Care Team (Late st Contact Info) Description 06/14/2011 Orders Only [facility] Infectious Disease - [address] [address] Juli Franz MD Chronic active viral hepatitis B (CMS-HCC) ([facility]); AIDS (acquired immune deficiency syndrome) ([facility]) Social History Tobacco Use Types [...] Diagnoses Diagnosis Chronic active viral hepatitis B ([facility]) Viral hepatitis B without mention of hepatic coma, chronic, without mention of hepatitis delta AIDS (acquired immune deficiency syndrome) ([facility]) Human immunodeficiency virus [HIV] disease documented [...] documented as of this encounter Care Teams Cinder Dump Crane Operator Relationship Specialty Start Date End Date Hanane Pollock NP [facility] [address] [place] [address] PCP - General 01/30/09 02/23/19 documented as of this encounter
--- OUTSIDE RECORDS SUMMARY | 2024-07-28 15:10 | XMS_ITS | Encounter Summary ---
Author Organization [facility] Address [address] [place] [address] Care Team Providers Care Group Home Manager Name Role Phone Hanane Pollock NP Primary Care Provider [phone] Encounter Details Date Type Department Care Team (Late st Contact Info) Description 03/11/2007 Before PRISM Converted Visit (Maple) [facility] - Maple conversion [address] [place] [address] Juli Franz MD Social History Tobacco Use [...] 0115 EST DIVISION OF INFECTIOUS DISEASE - [facility] PROGRESS/FOLLOWUP NOTE - 03/11/2007 DONNELL Calabrese presents for reevaluation for his HIV disease/AIDS and his chronic fatigue. He was last seen by me in the comprehensive care clinic in [facility] on February 11, 2007. Since he [...] on connecting him with a therapistin the [facility] area. In addition, we are going [...] March and followup with [facility] early April. 4. Chronic [...] Franz MD - LUIS ARMANDO Job ID: [id number] Doc ID: [id number] cc: [facility] Hanane Pollock NP documented in this encounter Plan of Treatment Not on file documented as of this encounter Visit Diagnoses Not on filedocumented in this encounter Care Teams Group Home Manager Relationship Specialty Start Date End Date Hanane Pollock NP [facility] [address] [place] [address] PCP - General 01/30/09 02/23/19 documented as of this encounter
--- OUTSIDE RECORDS SUMMARY | 2024-07-28 15:10 | XMS_ITS | Encounter Summary ---
Author Organization [facility] Address [address] [place] [address] Care Team Providers Care Meal Grinder Tender Name Role Phone Hanane Pollock NP Primary Care Provider [phone] Encounter Details Date Type Department Care Team (Late st Contact Info) Description 02/12/2012 Orders Only [facility] Infectious Disease - [address] [address] Juli Franz MD AIDS (acquired immune deficiency syndrome) ([facility]) (Primary Dx) Social History Tobacco Use Types [...] mg capsuleIndications: AIDS (acquired immune deficiency syndrome) ([facility]) Take 1 Cap by mouth daily. 30 Cap 3 02/12/2012 06/26/2012 ritonavir (NORVIR) 100 mg tabletIndications:A IDS (acquired immune deficiency syndrome) ([facility]) Take 1 Tab by mouth every 24 hours. 30 Tab 3 02/12/2012 06/26/2012 lamivudine (EPIVIR) 300 mg tabletIndications:A IDS (acquired immune deficiency syndrome) ([facility]) Take 1 Tab by mouth daily. 30 Tab 3 02/12/2012 06/26/2012 tenofovir (VIREAD) 300 mg tabletIndications:A IDS (acquired immune deficiency syndrome) ([facility]) Take 1 Tab by mouth daily. 30 Tab 3 02/12/2012 06/26/2012 Raltegravir (ISENTRESS) 400 mg TabIndications:AIDS (acquired immune deficiency syndrome) ([facility]) Take 1 Tab by mouth 2 times daily. 60 Tab 3 02/12/2012 06/26/2012 documented in this encounter Plan of Treatment Not on file documented as of this encounter Visit Diagnoses Diagnosis AIDS (acquired immune deficiency syndrome) ([facility])- Primary Human immunodeficiency virus [HIV] [...] documented as of this encounter Care Teams Meal Grinder Tender Relationship Specialty Start Date End Date Hanane Pollock NP [facility] [address] [place] [address] PCP - General 01/30/09 02/23/19 documented as of this encounter
--- OUTSIDE RECORDS SUMMARY | 2024-07-28 15:10 | XMS_ITS | Encounter Summary ---
Author Organization [facility] Address [address] [place] [address] Care Team Providers Care Rn Social Work Name Role Phone Hanane Pollock NP Primary Care Provider [phone] Encounter Details Date Type Department Care Team (Late st Contact Info) Description 03/05/2013 Documentation Visit [facility] Infectious Disease - [address] [address] Juli Franz MD Social History Tobacco Use [...] MD - 03/05/2013 1636 EDT TC to [facility] lab - HIV PCR result form 02/26 [...] filedocumented in this encounter Care Teams Rn Social Work Relationship Specialty Start Date End Date Hanane Pollock NP [facility] [address] [place] [address] PCP - General 01/30/09 02/23/19 documented as of this encounter
--- OUTSIDE RECORDS SUMMARY | 2024-07-28 15:10 | XMS_ITS | Encounter Summary ---
Author Organization [facility] Address [address] [place] [address] Care Team Providers Care Regional Account Director Name Role Phone Hanane Pollock NP Primary Care Provider [phone] Encounter Details Date Type Department Care Team (Late st Contact Info) Description 01/27/2008 Before PRISM Converted Visit (Maple) [facility] - Maple conversion [address] [place] [address] Juli Franz MD Social History Tobacco Use [...] 1657 EST DIVISION OF INFECTIOUS DISEASE - [facility] PROGRESS/FOLLOWUP NOTE - 01/27/2008 DONNELL Calabrese presents [...] problems with headache. He has seen the pin machine operator recently. His visionis stable. He has [...] well. His viral load remains undetectable. His [id number] is stable and he has really not [...] Juli Franz MD - DD Job ID: [id number] Doc ID: [id number] cc: Hanane Pollock NP documented in this encounter Plan of Treatment Not on file documented as of this encounter Visit Diagnoses Not on filedocumented in this encounter Care Teams Regional Account Director Relationship Specialty Start Date End Date Hanane Pollock NP [facility] [address] [place] [address] PCP - General 01/30/09 02/23/19 documented as of this encounter
--- OUTSIDE RECORDS SUMMARY | 2024-07-28 15:10 | XMS_ITS | Encounter Summary ---
Author Organization [facility] Address [address] [place] [address] Care Team Providers Care Textile Stylist Name Role Phone Hanane Pollock NP Primary Care Provider [phone] Encounter Details Date Type Department Care Team (Late st Contact Info) Description 09/30/2008 Before PRISM Converted Visit (Maple) [facility] - Maple conversion [address] [place] [address] Juli Franz MD Social History Tobacco Use [...] 0245 EST DIVISION OF INFECTIOUS DISEASE - [facility] PROGRESS/FOLLOWUP NOTE - 09/30/2008 DONNELL Calabrese presents for reevaluation of his HIV disease and his hepatitis B and C. He was last seen by me in the comprehensive care clinic on May 18, 2008. Since he was last seen, it sounds like he has done well. He has had no acute illnesses. He has followed up with the duty officer here in [facility]. I have corresponded with the duty officer on more than one occasion. There [...] Juli Franz MD - DD Job ID: [id number] Doc ID: [id number] cc: Hanane Pollock NP [facility]* documented in this encounter Plan of Treatment Not on file documented as of this encounter Visit Diagnoses Not on filedocumented in this encounter Care Teams Textile Stylist Relationship Specialty Start Date End Date Hanane Pollock NP [facility] [address] [place] [address] PCP - General 01/30/09 02/23/19 documented as of this encounter
--- OUTSIDE RECORDS SUMMARY | 2024-07-28 15:10 | XMS_ITS | Encounter Summary ---
Author Organization [facility] Address [address] [place] [address] Care Team Providers Care Mold Sander Name Role Phone Hanane Pollock NP Primary Care Provider [phone] Encounter Details Date Type Department Care Team (Late st Contact Info) Description 08/06/2011 Documentation Visit [facility] Infectious Disease - [address] [address] Ceci Fletcher, RN Social History Tobacco Use [...] was instructed to call Hanane Pollock at [facility] to make sure he has an appointment to discuss details of plan with Dr. Franz. documented in this encounter Plan of Treatment Not on file documented as of this encounter Visit Diagnoses Not on filedocumented in this encounter Care Teams Mold Sander Relationship Specialty Start Date End Date Hanane Pollock NP [facility] [address] [place] [address] PCP - General 01/30/09 02/23/19 documented as of this encounter
--- OUTSIDE RECORDS SUMMARY | 2024-07-28 15:10 | XMS_ITS | Encounter Summary ---
Author Organization [facility] Address [address] [place] [address] Care Team Providers Care Space Systems Operations Manager Name Role Phone Hanane Pollock NP Primary Care Provider [phone] Encounter Details Date Type Department Care Team (Late st Contact Info) Description 09/25/2012 Orders Only [facility] Infectious Disease - [address] [id number] Juli Franz MD Social History Tobacco Use [...] on filedocumented in this encounter Care Teams Space Systems Operations Manager Relationship Specialty Start Date End Date Hanane Pollock NP [facility] [address] [place] [address] PCP - General 01/30/09 02/23/19 documented as of this encounter
--- OUTSIDE RECORDS SUMMARY | 2024-07-28 15:10 | XMS_ITS | Encounter Summary ---
Author Organization [facility] Address [address] [place] [address] Care Team Providers Care Service Restorer Emergency Name Role Phone Hanane Pollock NP Primary Care Provider [phone] Reason for Visit * Reason Onset Date Comments Results 08/05/2011 Encounter Details Date Type Department Care Team (Late st Contact Info) Description 08/05/2011 Telephone [facility] Infectious Disease - [address] [address] Juli Franz MD Results Social History Tobacco [...] biopsy. Pauline nearly 2 months ago in [facility]. Reassured Fernando that the message will be passed on. * Telephone Encounter - HernandezJessicaLavonne - 08/05/2011 1528 EST Fernando, partner, stated [place] sees Dr Franz in [facility]. He does not want to call [facility] as he wants to speak with Dr Franz regarding results of lung biopsy. He can be reached at [phone] documented in this encounter Plan of Treatment Not on file documented as of this encounter Visit Diagnoses Not on filedocumented in this encounter Care Teams Service Restorer Emergency Relationship Specialty Start Date End Date Hanane Pollock, SOM [facility] [address] [place] [address] PCP - General 01/30/09 02/23/19 documented as of this encounter
--- OUTSIDE RECORDS SUMMARY | 2024-07-28 15:10 | XMS_ITS | Encounter Summary ---
Author Organization [facility] Address [address] [place] [address] Care Team Providers Care Pattern Chain Maker Supervisor Name Role Phone Hanane Pollock NP Primary Care Provider Encounter Details Date Type Department Care Team (Latest Contact Info) Description 05/08/2011 15:17 EDT - 05/08/2011 23:59 EDT Hospital Encounter [facility] [address] [place] [address] Juli Franz MD Discharge Disposition: Home or [...] Code Departure Means Destination Home or Self Half-Way documented in this encounter Plan of Treatment Not on file documented as of this encounter Visit Diagnoses Not on filedocumented in this encounter Care Teams Pattern Chain Maker Supervisor Relationship Specialty Start Date End Date Hanane Pollock, SOM [facility] [address] [place] [address] PCP - General 01/30/09 02/23/19 documented as of this encounter
--- OUTSIDE RECORDS SUMMARY | 2024-07-28 15:10 | XMS_ITS | Encounter Summary ---
Author Organization [facility] Address [address] [place] [address] Care Team Providers Care Cafeteria Cook Name Role Phone Hanane Pollock NP Primary Care Provider [phone] Encounter Details Date Type Department Care Team (Late st Contact Info) Description 02/11/2007 Before PRISM Converted Visit (Maple) [facility] - Maple conversion [address] [place] [address] Juli Franz MD Social History Tobacco Use [...] 1706 EST DIVISION OF INFECTIOUS DISEASE - [facility] PROGRESS/FOLLOWUP NOTE - 02/11/2007 PROBLEM Guanakito [...] MD -Juli Franz MD - Job ID: [id number] Doc ID: [id number] cc: MD Hanane Robles NP documented in this encounter Plan of Treatment Not on file documented as of this encounter Visit Diagnoses Not on filedocumented in this encounter Care Teams Cafeteria Cook Relationship Specialty Start Date End Date Hanane Pollock NP [facility] [address] [place] [address] PCP - General 01/30/09 02/23/19 documented as of this encounter
--- OUTSIDE RECORDS SUMMARY | 2024-07-28 15:10 | XMS_ITS | Encounter Summary ---
Author Organization [facility] Address [address] [place] [address] Care Team Providers Care Charter Driver Name Role Phone Haanne Pollock NP Primary Care Provider [phone] Encounter Details Date Type Department Care Team (Late st Contact Info) Description 10/07/2007 Before PRISM Converted Visit (Maple) [facility] - Maple conversion [address] [place] [address] Juli Franz MD Social History Tobacco Use Types Packs/Day Years Used Date Smoking Tobacco: Never Assessed Sex and Gender Information Value Date Recorded Sex Assigned at Not on file Legal Sex Male 18:27 EST Gender Identity Not on file Sexual Orientation Not on file documented as of this encounter Progress Notes * Juli Franz MD - 09/19/2009 1651 EST DIVISION OF INFECTIOUS DISEASE [facility] PROGRESS/FOLLOWUP NOTE - 10/07/2007 DONNELL Calabrese [...] care for his mother who lives in [place] and who does not drive. He has [...] Juli Franz MD - CRISTAL Job ID: [id number] Doc ID: [id number] cc: Hanane Pollock NP documented in this encounter Plan of Treatment Not on file documented as of this encounter Visit Diagnoses Not on filedocumented in this encounter Care Teams Charter Driver Relationship Specialty Start Date End Date Hanane Pollock NP [facility] [address] [place] [address] PCP - General 01/30/09 02/23/19 documented as of this encounter
--- OUTSIDE RECORDS SUMMARY | 2024-07-28 15:10 | XMS_ITS | Encounter Summary ---
Author Organization [facility] Address [address] [place] [address] Care Team Providers Care Drier Take Off Tender Name Role Phone Hanane Pollock NP Primary Care Provider Encounter Details Date Type Department Care Team (Late st Contact Info) Description 09/24/2012 Orders Only [facility] Infectious Disease - [address] [address] Juli Franz MD Social History Tobacco Use [...] EDT) GFR, Calculated, External >=60.00 mL/min/1 .73m2 [facility] Glucose, Serum, External 89 70 - 110 mg/dL [facility] Albumin, External 4.2 3.4 - 5.0 g/dL [facility] Total Alkaline Phosphatase, External 97 38 - 126 U/L [facility] ALT, External 48 12 - 78 U/L [facility] Comment:Please see scanned r eport in PRISM for futher interpretation AST, External 18 15 - 37 U/L [facility] BUN, External 15 7 - 18 mg/dL [facility] Calculated Calcium, External Not given [facility] Calcium, External 8.8 8.5 - 10.1 mg/dL [facility] Chloride, External 104 98 - 107 mmol/L [facility] CO2, External 26.2 21.0 - 32.0 mmol/L [facility] Creatinine, External 1.0 0.8 - 1.3 mg/dL [facility] Fasting?, External Unknown [facility] Potassium, External 4.3 3.5 - 5.1 mmol/L [facility] Sodium, External 141 136 - 145 mmol/L [facility] Total Protein, External 7.2 6.4 - 8.2 g/dL [facility] Bilirubin, Total, External 1.62(A) 0.2 - 1.0 mg/dL [facility] Blood specimen (specimen) 09/21/2012 9:18 EDT us Juli Franz MD CHEMISTRY & BLOOD GAS ORDERABL ES Final Result [facility] * (ABNORMAL) HEMAGRAM AND DIFFERENTIAL (09/21/2012 9:18 EDT) WBC, External 9.02 4.4 - 10.8 k/cumm [facility] Comment:Please see scanned r eport in PRISM for futher test and interpretation RBC, External 4.95 4.50 - 6.00 m/cumm [facility] Hemoglobin, External 16.9 13.5 - 17.5 gm/dL [facility] HCT, External 48.4 40.0 - 50.0 % [facility] MCV, External 97.8(A) 80 - 95 cu/jose roberto [facility] MCH, External 34.1(A) 27.0 - 33.0 pg [facility] MCHC, External 34.9 32.0 - 36.0 % [facility] PLT, External 207 130 - 400 x1000/uL [facility] RDW-CV, External 13.7 11.5 - 14.5 % [facility] Neutrophils, External 51.6 40 - 74 % [facility] Lymphocytes, External 36.1 19 - 44 % [facility] Monocytes, External 7.0 3.0 - 10.0 % [facility] Eosinophils, External 4.1 1 - 7.0 % [facility] Basophils, External 1.0 0.0 - 2 % [facility] ABS Neutrophils, External 4.65 1.2 - 6.7 k/cumm [facility] ABS Lymphs, External 3.26 1.2 - 3.4 k/cumm [facility] ABS Monocytes, External 0.63 0.11 - 0.7 k/cumm [facility] ABS Eosinophils, External 0.37 0 - 0.7 k/cumm [facility] ABS Basophils, External 0.09 0.0 - 0.2 k/cumm [facility] Blood specimen (specimen) 09/21/2012 9:18 EDT us Juli Franz MD PACKAGES & DNA PROBE ORDERABLE S Final Result [facility] * PHOSPHORUS (09/21/2012 9:18 EDT) Phosphorus, External 2.9 2.5 - 4.9 mg/dL [facility] Blood specimen (specimen) 09/21/2012 9:18 EDT us Juli Franz MD CHEMISTRY & BLOOD GAS ORDERABL ES Final Result [facility] documented in this encounter Visit Diagnoses Not on filedocumented in this encounter Care Teams Drier Take Off Tender Relationship Specialty Start Date End Date Hanane Pollock NP [facility] [address] [place] [address] PCP - General 01/30/09 02/23/19 documented as of this encounter
--- OUTSIDE RECORDS SUMMARY | 2024-07-28 15:10 | XMS_ITS | Encounter Summary ---
Author Organization [facility] Address [address] [place] [address] Care Team Providers Care Surgical Scrub Tech Name Role Phone Hanane Pollock NP Primary Care Provider Encounter Details Date Type Department Care Team (Late st Contact Info) Description 04/22/2007 Before PRISM Converted Visit (Maple) [facility] - Maple conversion [address] [place] [address] Juli Franz MD Social History Tobacco Use [...] 1703 EST DIVISION OF INFECTIOUS DISEASE - [facility] PROGRESS/FOLLOWUP NOTE - 04/22/2007 DONNELL Calabrese [...] them every day. He did see the power plant engineer and they did do some steroid injections [...] - Juli Franz MD - Job ID: [id number] Doc ID: [id number] cc: Hanane Pollock NP documented in this encounter Plan of Treatment Not on file documented as of this encounter Visit Diagnoses Not on filedocumented in this encounter Care Teams Surgical Scrub Tech Relationship Specialty Start Date End Date Hanane Pollock, LINE OUT WORKER [facility] [address] [place] [address] PCP - General 01/30/09 02/23/19 documented as of this encounter
--- OUTSIDE RECORDS SUMMARY | 2024-07-28 15:10 | XMS_ITS | Encounter Summary ---
Author Organization [facility] Address [address] [place] [address] Care Team Providers Care Food Beverage Manager Name Role Phone Hanane Pollock NP Primary Care Provider [phone] Encounter Details Date Type Department Care Team (Late st Contact Info) Description 03/22/2013 Orders Only [facility] Infectious Disease - [address] [id number] Juli Franz MD Social History Tobacco Use [...] on filedocumented in this encounter Care Teams Food Beverage Manager Relationship Specialty Start Date End Date Hanane Pollock NP [facility] [address] [place] [address] PCP - General 01/30/09 02/23/19 documented as of this encounter
--- OUTSIDE RECORDS SUMMARY | 2024-07-28 15:10 | XMS_ITS | Encounter Summary ---
Author Organization [facility] Address [address] [place] [address] Care Team Providers Care Reading Intervention Teacher Name Role Phone Hanane Pollock NP Primary Care Provider [phone] Reason for Visit * Reason Comments Follow-up Encounter Details Date Type Department Care Team (Late st Contact Info) Description 10/28/2012 9:45 EDT Office Visit [facility] Infectious Disease [address] [address] Juli Franz MD AIDS (acquired immune deficiency [...] 10/29/2012 0833 EDT Faxed lab orders to [facility] lab 4.18.13 * Juli Franz MD - 10/28/[address] [facility] FOLLOWUP NOTE DOS 10/28/2012 Last seen: 06/03/2012 [...] documented as of this encounter Care Teams Reading Intervention Teacher Relationship Specialty Start Date End Date Hanane Pollock NP [facility] [place] [facility] [address] [place] [address] PCP - General 01/30/09 02/23/19 documented as of this encounter
--- OUTSIDE RECORDS SUMMARY | 2024-07-28 15:10 | XMS_ITS | Encounter Summary ---
Author Organization [facility] Address [address] [place] [address] Care Team Providers Care Spanish Speaking Nanny Name Role Phone Hnaane Pollock NP Primary Care Provider [phone] Encounter Details Date Type Department Care Team (Latest Contact Info) Description 05/15/2010 11:06 EDT - 05/15/2010 22:17 EDT Hospital Encounter [facility] [address] [place] [address] Juli Franz MD Discharge Disposition: Home or [...] Instructed that patient must have a driver starting gate with him due to sedation he willreceive for procedure and Fernando stated that he will be the driver starting gate. Gave phone number for CVU with any [...] Bridger Miranda MD Interventional Radiology Fellow Pager #[phone] Cosigned by Michael Kirkpatrick MD at 05/15/2010 [...] EDT Frank Simmons PA-C HEMATOLOGY & PF4 ORDERABL ES Final Result Performing Organization Address City/[facility] [[email or web address]] Co de Phone Number [facility] [address] [place] [address] * PROTIME (05/15/2010 12:00 EDT) Pro Time 12.5 9.9 - 13.1 secs [facility] I.N.R. 1.1 0.9 - 1.1 Ratio [facility] Comment: ??Moderate Intensity Coumadin INR = 2.0-3.0 Adjustments in anticoagulant therapy dose should be based upon the INR and NOT the Pro Time. ?? Blood specimen (specimen) 05/15/2010 12:00 EDT 05/15/2010 12:18 EDT Frank Simmons PA-C HEMATOLOGY & PF4 ORDERABL ES Final Result [facility] [address] [place] [address] documented in this encounter Visit Diagnoses Not [...] 05/15/2010 documented in this encounter Care Teams Spanish Speaking Nanny Relationship Specialty Start Date End Date Hanane Pollock NP [facility] [address] [place] [address] PCP - General 01/30/09 02/23/19 documented as of this encounter
--- OUTSIDE RECORDS SUMMARY | 2024-07-28 15:10 | XMS_ITS | Encounter Summary ---
Author Organization [facility] Address [address] [place] [address] Care Team Providers Care Auto Tune Up Mechanic Name Role Phone Hanane Pollock NP Primary Care Provider [phone] Encounter Details Date Type Department Care Team (Late st Contact Info) Description 08/05/2013 Orders Only [facility] Infectious Disease - [address] [address] Juli Franz MD Social History Tobacco Use [...] Phosphorus, External 2.9 2.5 - 4.9 mg/dL [facility] Blood specimen (specimen) 07/09/2013 8:26 EST Juli Franz MD CHEMISTRY & BLOOD GAS ORDERABL ES Final Result [facility] * HIV 1 RNA QUANTITATION (07/09/2013 8:26 EST) Pathologist [facility] HIV1 RNA, External Detected Undetected copies/mL [facility] Comment:Test performed at [facility]. See scan media in Prism Blood specimen (specimen) 07/09/2013 8:26 EST Juli Franz MD CHEMISTRY & BLOOD GAS ORDERABL ES Final Result Performing Organization Address City/[facility]/ZIP Co de Phone Number [facility] * CK (07/09/2013 8:26 EST) Pathologist [facility] CK, External 105 39 - 308 U/L [facility] Blood specimen (specimen) 07/09/2013 8:26 EST Juli Franz MD CHEMISTRY & BLOOD GAS ORDERABL ES Final Result Performing Organization Address City/[facility]/ZIP Co de Phone Number [facility] * (ABNORMAL) LIPID PROFILE (INCLUDES CHOLESTEROL, TRIGLYCERIDES, HDL, LDL) (07/09/2013 8:26 EST) Cholesterol, External 149 50 - 200 mg/dL [facility] Triglycerides , External 347(A) 15 - 150 mg/dL [facility] HDL, External 20(A) 40 - 60 mg/dL [facility] LDL, External 76 mg/dL AMAYA BAL [facility] Chol/HDL Ratio, External Not given [facility] Fasting?, External Unknown [facility] Comment:See scans for furthe r interpretation. Blood specimen (specimen) 07/09/2013 8:26 EST us Juli Franz MD CHEMISTRY & BLOOD GAS ORDERABL ES Final Result [facility] * (ABNORMAL) HEMAGRAM AND DIFFERENTIAL (07/09/2013 8:26 EST) WBC, External 8.59 4.4 - 10.8 k/cumm [facility] RBC, External 4.57 4.50 - 6.00 m/cumm [facility] Hemoglobin, External 15.8 13.5 - 17.5 g/dL [facility] HCT, External 43.6 40.0 - 50.0 % [facility] MCV, External 95.4(A) 80 - 95 fL [facility] MCH, External 34.6(A) 27.0 - 33.0 pg [facility] MCHC, External 36.2(A) 32.0 - 36.0 % [facility] PLT, External 193 130 - 400 x1000/uL [facility] RDW-CV, External 13.7 11.8 - 14.1 % [facility] Neutrophils, External 52.2 40 - 74 % [facility] Lymphocytes, External 36.0 19 - 44 % [facility] Monocytes, External 7.3 3.0 - 10.0 % [facility] Eosinophils, External 3.8 1 - 7.0 % [facility] Basophils, External 0.6 0.0 - 2.0 % [facility] ABS Neutrophils, External 4.48 1.2 - 6.7 k/cumm [facility] ABS Lymphs, External 3.09 1.2 - 3.4 k/cumm [facility] ABS Monocytes, External 0.63 0.11 - 0.7 k/cumm [facility] ABS Eosinophils, External 0.33 0 - 0.7 k/cumm [facility] ABS Basophils, External 0.05 0.0 - 0.2 k/cumm [facility] Comment:See scans for furthe r interpretation. Blood specimen (specimen) 07/09/2013 8:26 EST us Juli Franz MD PACKAGES & DNA PROBE ORDERABLE S Final Result [facility] * (ABNORMAL) COMPREHENSIVE METABOLIC PANEL (CMP) (07/09/2013 8:26 EST) GFR, Calculated, External >=60.00 >=60.00 mL/min/1. 73m2 [facility] Glucose, Serum, External 81 70 - 100 mg/dL [facility] Albumin, External 4.2 3.4 - 5.0 g/dL [facility] Total Alkaline Phosphatase, External 78 46 - 116 U/L [facility] ALT, External 49 12 - 78 U/L [facility] AST, External 20 15 - 37 U/L [facility] BUN, External 17 7 - 18 mg/dL [facility] Calculated Calcium, External Not given [facility] Calcium, External 8.9 8.5 - 10.1 mg/dL [facility] Chloride, External 106 98 - 107 mmol/L [facility] CO2, External 28.8 21.0 - 32.0 mmol/L [facility] Creatinine, External 1.2 0.8 - 1.3 mg/dL [facility] Fasting?, External Unknown [facility] Potassium, External 4.6 3.5 - 5.1 mmol/L [facility] Sodium, External 144 136 - 145 mmol/L [facility] Total Protein, External 6.9 6.4 - 8.2 g/dL [facility] Bilirubin, Total, External 1.49(A) 0.2 - 1.0 mg/dL [facility] Comment:See scans for furthe r interpretation. Blood specimen (specimen) 07/09/2013 8:26 EST us Juli Franz MD CHEMISTRY & BLOOD GAS ORDERABL ES Final Result [facility] documented in this encounter Visit Diagnoses Not on filedocumented in this encounter Care Teams Auto Tune Up Mechanic Relationship Specialty Start Date End Date Hanane Pollock, S[facility] [address] [place] [address] PCP - General 01/30/09 02/23/19 documented as of this encounter
--- OUTSIDE RECORDS SUMMARY | 2024-07-28 15:10 | XMS_ITS | Encounter Summary ---
Author Organization [facility] Address [address] [place] [address] Care Team Providers Care Collateral Analyst Name Role Phone Hanane Pollock NP Primary Care Provider [phone] Encounter Details Date Type Department Care Team (Late st Contact Info) Description 11/03/2013 Orders Only [facility] Infectious Disease - [address] [address] Juli Franz MD Social History Tobacco Use [...] * PHOSPHORUS (11/01/2013 11:56 EDT) Phosphorus, External [facility] Comment:Ordered in error. Blood specimen (specimen) 11/01/2013 11:56 EDT us Ingris iWlson MD CHEMISTRY & BLOOD GAS ORDERA BLES Final Result Performing Organization Address [facility]/ZIP Co de Phone Number [facility] * HEMAGRAM AND DIFFERENTIAL (11/01/2013 11:56 EDT) WBC, [facility] Comment:Ordered in error. RBC, [facility] Comment:Ordered in error. Hemoglobin, [facility] Comment:Ordered in error. HCT, [facility] Comment:Ordered in error. MCV, [facility] Comment:Ordered in error. MCH, [facility] Comment:Ordered in error. MCHC, [facility] Comment:Ordered in error. PLT, [facility] Comment:Ordered in error. RDW-CV, [facility] Comment:Ordered in error. Neutrophils, [facility] Comment:Ordered in error. Lymphocytes, [facility] Comment:Ordered in error. Monocytes, [facility] Comment:Ordered in error. Eosinophils, [facility] Comment:Ordered in error. Basophils, [facility] Comment:Ordered in error. ABS Neutrophils, [facility] Comment:Ordered in error. ABS Lymphs, [facility] Comment:Ordered in error. ABS Monocytes, [facility] Comment:Ordered in error. ABS Eosinophils, [facility] Comment:Ordered in error. ABS Basophils, [facility] Comment:Ordered in error. Blood specimen (specimen) 11/01/2013 11:56 EDT us Ingris Wilson MD PACKAGES & DNA PROBE ORDERAB LES Final Result [facility] * COMPREHENSIVE METABOLIC PANEL (CMP) (11/01/2013 11:56 EDT) GFR, Calculated, [facility] Comment:Ordered in error. Glucose, Serum, [facility] Comment:Ordered in error. Albumin, [facility] Comment:Ordered in error. Total Alkaline Phosphatase, [facility] Comment:Ordered in error. ALT, [facility] Comment:Ordered in error. AST, [facility] Comment:Ordered in error. BUN, [facility] Comment:Ordered in error. Calculated Calcium, [facility] Comment:Ordered in error. Calcium, [facility] Comment:Ordered in error. Chloride, [facility] Comment:Ordered in error. CO2, [facility] Comment:Ordered in error. Creatinine, [facility] Comment:Ordered in error. Fasting?, [facility] Comment:Ordered in error. Potassium, [facility] Comment:Ordered in error. Sodium, [facility] Comment:Ordered in error. Total Protein, [facility] Comment:Ordered in error. Bilirubin, Total, [facility] Comment:Ordered in error. Blood specimen (specimen) 11/01/2013 11:56 EDT us Ingris Wilson MD CHEMISTRY & BLOOD GAS ORDERA BLES Final Result [facility] * CK (11/01/2013 11:56 EDT) CK, [facility] Comment:Ordered in error. Blood specimen (specimen) 11/01/2013 11:56 EDT us Ingris Wilson MD CHEMISTRY & BLOOD GAS ORDERA BLES Final Result [facility] documented in this encounter Visit Diagnoses Not on filedocumented in this encounter Care Teams Collateral Analyst Relationship Specialty Start Date End Date Hanane Pollock, HEARINGS REPORTER [facility] [address] [place] [address] PCP - General 01/30/09 02/23/19 documented as of this encounter
--- OUTSIDE RECORDS SUMMARY | 2024-07-28 15:10 | XMS_ITS | Encounter Summary ---
Author Organization [facility] Address [address] [place] [address] Care Team Providers Care Automotive Glass Mechanic Name Role Phone Hanane Pollock NP Primary Care Provider [phone] Encounter Details Date Type Department Care Team (Latest Contact Info) Description 05/23/2011 8:04 EST - 05/23/2011 16:27 EST Hospital Encounter [facility] Cardiovascular Unit [address] [place] [address] Juli Franz MD Discharge Disposition: Home or [...] chest x-ray to a facility other than [facility] because of worsening symptoms, youmay need [...] 2 hrs. Keep pt on 02 via TN D/c home F/u Dr. Franz for bx [...] in SR on monitor. Safety strapin place. Trackwalker Scan completed. 1005- Ruiz Moment completed with all in room. Right Upper Back prepped and draped in usual sterile fashion. Right Upper Lobe Lung biopsy completed. Fentanyl 250 mcg and Versed 5 mg given for pt comfort. Report called to LYDIA Forrest in CVU . Pt transferred back to [facility] in stable condition. * Kiara Gregorio RN - 05/23/2011 0825 EST 0820 Guanakito Cedillo arrived to the Cardiovascular Unit via ambulatory. [facility] identified [facility] policy and oriented to Unit. Reviewed [...] prior to procedure, and to have a trencher driver due to sedation he will receive [...] documented in this encounter Procedure Notes * Water Service Dispatcher, Scan - 05/28/2011 1139 ESTAssociated Order(s): PROCEDURE REPORTS - SCANNED * Frank Simmons PA-C - 05/23/2011 1141 EST IR Procedure Note Procedure: CT guided right lung biopsy Date Performed: 05/23/2011 Radiologist/Recreation Manager(s): MD Casimiro/LAUREEN Simmons Sedation/Anesthesia: Versed 5 mg [...] encounter Miscellaneous Notes * Scanned Note-Null - Water Service Dispatcher, Scan - 05/28/2011 1139 EST * Scanned Note-Null - Water Service Dispatcher, Scan - 05/28/2011 1139 EST * Scanned Note-Null - Water Service Dispatcher, Scan - 05/28/2011 1139 EST documented in [...] EST) 05/28/2011 11:3 9 EST Narrative Transcriptions Water Service Dispatcher, Scan - 05/28/2011 11:39 EST us Scan Water Service Dispatcher PROCEDURE/MINOR SURGICAL ORDE RABLES Final Result * [...] lung volumes. Frank Simmons PA-C IMG DIAGNOSTIC IMAGING OR [...] is clear. Frank Simmons PA-C IMG DIAGNOSTIC IMAGING OR DERABLES Final Result * BACTERIAL CULTURE/SMEAR, RESPIRATORY (05/23/2011 11:19 EST) Specimen Description Fine Needle Asp Lung, right upper lobe [facility] Gram Smear Result Few Polys [facility] Gram Smear Result No alveolar macrophages seen [facility] Gram Smear Result No bacteria seen [facility] Result No growth [facility] Report Status 05/28/2011 Final [facility] Specimen from lung obtained by fine needle aspiration procedure (specimen) 05/23/2011 11:19 EST 05/23/2011 12:21 EST Juli Franz MD MICROBIOLOGY - GENERAL ORDERAB LES Final Result Performing Organization Address City/State/[facility] Co de Phone Number [facility] [address] [place] [address] * FUNGUS CULTURE/SMEAR, OTHER (05/23/2011 11:19 EST) Specimen Description Fine Needle Asp Lung, right upper lobe [address]cc [facility] Fungal Smear No fungi seen [facility] Result No fungi isolated [facility] Report Status 06/20/[address] [facility] Specimen from lung obtained by fine needle aspiration procedure (specimen) 05/23/2011 11:19 EST 05/23/2011 12:19 EST Frank Simmons PA-C MICROBIOLOGY - GENERAL OR DERABLES Final Result Performing Organization Address City/[facility]/ZIP Co de Phone Number [facility] [address] [place] [address] * AFB CULTURE/SMEAR, OTHER (05/23/2011 11:18 EST) [...] ORDERAB LES Final Result Performing Organization Address [facility] Co de Phone Number [facility] [address] [place] [address] * PROTIME (05/23/2011 8:30 EST) Pro Time [...] ORDERABLES Fi nal Result Performing Organization Address City/[facility] Co de Phone Number [facility] [address] [place] [address] * (ABNORMAL) HEMAGRAM (05/23/2011 8:30 EST) WBC 8.37 4.0 - 10.4 K/cmm [facility] RBC 4.46 4.36 - 5.78 M/cmm [facility] [...] HEMATOLOGY & PF4 ORDERABLES Fi nal Result [facility] [address] [place] [address] documented in this encounter Visit Diagnoses Not [...] 0909 (New Bag - Prov ider: Kiara Gregorio, RN) PRN Medication Order 05/21/2011 05/22/2011 05/23/2011 [...] 05/23/2011 documented in this encounter Care Teams Automotive Glass Mechanic Relationship Specialty Start Date End Date Hanane Pollock NP [facility] [address] [place] [address] PCP - General 01/30/09 02/23/19 documented as of this encounter
--- OUTSIDE RECORDS SUMMARY | 2024-07-28 15:10 | XMS_ITS | Encounter Summary ---
Author Organization [facility] Address [address] [place] [address] Care Team Providers Care Protective Signal Repairer Helper Name Role Phone Hanane Pollock NP Primary Care Provider [phone] Reason for Visit * Reason Comments Follow-up Encounter Details Date Type Department Care Team (Latest Contact Info) Description 07/28/2013 9:30 EST Office Visit [facility] Infectious Disease - [address] [address] Juli Franz MD Human immunodeficiency virus (HIV) [...] Juli Franz MD - 07/28/2013 0946 EST [facility] FOLLOWUP NOTE DOS 07/28/2013 Last seen: 03/03/2013 [...] quitting. He got a nicotine inhaler for [place]. Encouraged him to set a quit date [...] coma documented in this encounter Care Teams Protective Signal Repairer Helper Relationship Specialty Start Date End Date Hanane Pollock NP [facility] [address] [place] [address] PCP - General 01/30/09 02/23/19 documented as of this encounter
--- OUTSIDE RECORDS SUMMARY | 2024-07-28 15:10 | XMS_ITS | Encounter Summary ---
Author Organization [facility] Address [address] [place] [address] Care Team Providers Care Bogger Operator Name Role Phone Hanane Pollock SALESPERSON [employer]ARD [employer] Primary Care Provider [phone] Encounter Details Date Type Department Care Team (Late st Contact Info) Description 08/09/2013 Orders Only [facility] Infectious Disease - [address] [address] Juli Franz MD Social History Tobacco Use [...] on filedocumented in this encounter Care Teams Bogger Operator Relationship Specialty Start Date End Date Hanane Pollock NP [facility] [address] [place] [address] PCP - General 01/30/09 02/23/19 documented as of this encounter
--- OUTSIDE RECORDS SUMMARY | 2024-07-28 15:10 | XMS_ITS | Encounter Summary ---
Author Organization [facility] Address [address] [place] [address] Care Team Providers Care Document Imaging Specialist Name Role Phone Hanane Pollock NP Primary Care Provider [phone] Encounter Details Date Type Department Care Team (Late st Contact Info) Description 05/05/2010 Orders Only [facility] Infectious Disease - [address] [id number] Juli Franz MD Chronic hepatitis C without [...] delta documented in this encounter Care Teams Document Imaging Specialist Relationship Specialty Start Date End Date Hanane Pollock NP [facility] [address] [place] [address] PCP - General 01/30/09 02/23/19 documented as of this encounter
--- OUTSIDE RECORDS SUMMARY | 2024-07-28 15:11 | XMS_ITS | Encounter Summary ---
Author Organization [facility] Address [address] [place] [address] Care Team Providers Care Shell Coremaker Name Role Phone Hanane Pollock NP Primary Care Provider [phone] Encounter Details Date Type Department Care Team (Late st Contact Info) Description 05/22/2004 Results Only [facility] Dermatology [address] [address] Artur Blum MD [address] [place] [address], [address] [place] [id number] Social History Tobacco Use Types Packs/Day Years [...] ? KALEB CEDILLO ? Accession #: ? [id number] ? : ? 1970 (Age: 34) ??M [...] in its entirety in one cassette. ??(Isaiah Gallo)/[facility] End of Report [facility] 05/22/2004 05/28/2004 9:4 0 EST us Artur Blum MD PATHOLOGY ORDERABLES Nupur rubio Result [facility] [address] [place] [address] documented in this encounter Visit Diagnoses Not on filedocumented in this encounter Care Teams Shell Coremaker Relationship Specialty Start Date End Date Hanane Pollock NP [facility] [address] [place] [address] PCP - General 01/30/09 02/23/19 documented as of this encounter
--- OUTSIDE RECORDS SUMMARY | 2024-07-28 15:11 | XMS_ITS | Encounter Summary ---
[place] [address] Care Team Providers Care Watch Dial Stoner Name Role Phone Sabrina Jerome APRN Primary Care Provider [phone] Reason for Referral * Consultation (Routine) - Closed Specialty Diagnoses / Procedures Referred By Ezequiel arita Referred To Contact Maxillofacial Surgery Diagnoses Extraction of tooth needed [place] [address] [facility] [address] [place] [phone] Referral ID Status Reason Start Date Expiration Date V isits Requested Visits Authorized [id number] Closed Consult, Test & Treat 01/10/2023 01/10/2024 1 1 Encounter Details Date Type Department Care Team (Latest Contact Info) Description 01/10/2023 Transcribe Orders eDH Incoming Referrals [phone] Shakeel Calhoun DDS [place], [place] [id number] Extraction of tooth needed Social History Tobacco [...] needed documented in this encounter Care Teams Watch Dial Stoner Relationship Specialty Start Date End Date Sabrina Jerome APRN PCP - General Family Medicine 01/02/22 documented as of this encounter
--- OUTSIDE RECORDS SUMMARY | 2024-07-28 15:11 | XMS_ITS | Encounter Summary ---
Author Organization [facility] [place] [address] Care Team Providers Care Mammalogy Teacher Name Role Phone Laura De Primary Care Provider + Reason for Visit * Consultation (Routine) - Specialty Diagnoses / Procedures Referred By Ezequiel arita Referred To Contact Dermatology Diagnoses skin lesion Laura De PA [address] [place] [address] [facility] [address] [place] [address] Referral ID Status Reason Start Date Expiration Date V isits Requested Visits Authorized [id number] Consult, Test & Treat [facility] 04/16/2018 04/16/2019 6 6 Encounter Details Date Type Department Care Team (Late st Contact Info) Description 05/11/2018 9:45 AM EDT Office Visit Dermatology at [facility] [address] [place] [phone] Aretha Lassiter MD Condyloma acuminata Social History Tobacco Use Types [...] Mariola Del Valle, RN I, Mariola Del Valle, RN, have performed the documentation for this [...] documentation. Aretha Lassiter MD Section of Dermatology [facility] documented in this encounter Plan of Treatment Not on file documented as of this encounter Visit Diagnoses Diagnosis Condyloma acuminata Condyloma acuminatum documented in this encounter Care Teams Mammalogy Teacher Relationship Specialty Start Date End Date Laura De PA PCP - General Family Medicine 04/16/18 01/01/22 documented as of this encounter
--- OUTSIDE RECORDS SUMMARY | 2024-07-28 15:11 | XMS_ITS | Encounter Summary ---
Author Organization [facility] Address [address] [place] [address] Care Team Providers Care Metal Furniture Glazier Name Role Phone Unavailable Primary Care Provider Unavailabl e Encounter Details Date Type Department Care Team (Late st Contact Info) Description 05/25/2004 13:30 EST Hospital Encounter [facility] - Other [address] [place] [address] Daniel Blum MD [address] [place] [address], [address] [place] [id number] Social History Tobacco Use Types Packs/Day Years [...] of this reading. Procedure Note 04/30/2011 History: [facility] * 04/16/11 [...] available at the time of this reading. us Juli Franz MD IMG OTHER IMAGING ORDERABLES F inal Result documented in this encounter Visit Diagnoses Not on filedocumented in this encounter
--- OUTSIDE RECORDS SUMMARY | 2024-07-28 15:11 | XMS_ITS | Encounter Summary ---
Author Organization [facility] Address [address] [place] [address] Care Team Providers Care Forming Fixer Name Role Phone Hanane Pollock GANG DRILL OPERATOR Primary Care Provider [phone] Luz Monreal MD Primary Care Provider Unavail able None, Provider Primary Care Provider Unavailabl Sabrina Almanza GANG DRILL OPERATOR Primary Care Provider [phone] Encounter Details Date Type Department Care Team (Late st Contact Info) Description 11/30/2002 Before PRISM Converted Visit (Maple) [facility] Infectious Disease [address] [address] Juli Franz MD Social History Tobacco Use [...] were no complications. Procedure Note Juan Pablo Sandoavl MD / Yan Strickland, DO - 03/28/2009 [...] the entire procedure. paris Juli Franz MD [facility] [place] Final Result documented in this encounter Visit Diagnoses Not on filedocumented in this encounter Care Teams Forming Fixer Relationship Specialty Start Date End Date Hanane Pollock NP [facility] [address] [place] [address] PCP - General 01/30/09 02/23/19 Luz Monreal MD [facility] [address] [place] [address] PCP - General 02/24/19 03/01/20 None, Provider PCP - General 03/02/20 03/28/21 Sabrina Jerome NP [address] [place] [phone] PCP - General 03/29/21 documented as of this encounter
--- OUTSIDE RECORDS SUMMARY | 2024-07-28 15:11 | XMS_ITS | Encounter Summary ---
Author Organization [facility] Address [address] [place] [address] Care Team Providers Care Events Intern Name Role Phone Unavailable Primary Care Provider Unavailabl e Encounter Details Date Type Department Care Team (Late st Contact Info) Description 04/20/2004 13:27 EDT Hospital Encounter [facility] - Other [address] [place] [address] Daniel Blum MD [address] [facility], [address] [place] [address] Social History Tobacco Use Types Packs/Day Years [...]
--- OUTSIDE RECORDS SUMMARY | 2024-07-28 15:11 | XMS_ITS | Encounter Summary ---
Author Organization [facility] Address [address] [place] [address] Care Team Providers Care Otologist Name Role Phone Unavailable Primary Care Provider Unavailabl e Encounter Details Date Type Department Care Team (Latest Contact Info) Description 11/30/2002 11:59 EDT Hospital Encounter [facility] Radiology - Main [place] [address] [place] [address] Juli Franz MD Discharge Disposition: Home or [...]
--- OUTSIDE RECORDS SUMMARY | 2024-07-28 15:11 | XMS_ITS | Encounter Summary ---
Author Organization [facility] [place] [address] Care Team Providers Care Supervisor Carbon Paper Coating Name Role Phone Sabrina Jerome APRN Primary Care Provider [phone] Encounter Details Date Type Department Care Team [...] filedocumented in this encounter Care Teams Supervisor Carbon Paper Coating Relationship Specialty Start Date End Date Sabrina Jerome APRN PCP - General Family Medicine 01/02/22 documented as of this encounter
--- OUTSIDE RECORDS SUMMARY | 2024-07-28 15:11 | XMS_ITS | Encounter Summary ---
Author Organization [facility] Address [address] [place] [address] Care Team Providers Care Chemist Inorganic Name Role Phone Hanane Pollock NP Primary Care Provider [phone] Encounter Details Date Type Department Care Team (Late st Contact Info) Description 09/10/2006 Before PRISM Converted Visit (Maple) [facility] - Maple conversion [address] [place] [address] Juli Franz MD Social History Tobacco Use [...] 1701 EST DIVISION OF INFECTIOUS DISEASE - [facility] PROGRESS/FOLLOWUP NOTE - 10/01/2006 DONNELL Calabrese [...] since the time [place]. I think that he should be reimmunized, but [facility] that he has not had a tetanus shot there. They looked in the medical record there and it appears that he has no evidence of that. We can also check the records at [facility], although we do have copiesof most of [...] Franz MD A - SK Job ID: [id number] Document ID: [id number] cc: Hanane Pollock NP cc: Hanane Pollock NP * Juli Franz MD - 09/19/2009 1701 EST DIVISION OF INFECTIOUS DISEASE - [facility] PROGRESS/FOLLOWUP NOTE - 09/10/2006 [facility] DONNELL Calabrese presents for reevaluation of [...] of his skin he does have some [id number] colored papules on the flexor aspect of [...] the percent is somewhat low. I think weskevinld consider stopping his Dapsone. We did not [...] Franz MD P - DD Job ID: [id number] Document ID: [id number] cc: [facility] documented in this encounter Plan of Treatment Not on file documented as of this encounter Visit Diagnoses Not on filedocumented in this encounter Care Teams Chemist Inorganic Relationship Specialty Start Date End Date Hanane Pollock, [facility] [address] [place] [address] PCP - General 01/30/09 02/23/19 documented as of this encounter
--- OUTSIDE RECORDS SUMMARY | 2024-07-28 15:11 | XMS_ITS | Encounter Summary ---
Author Organization [facility] Address [facility] [place] [address] Care Team Providers Care Environmental Engineering Technician Name Role Phone Sabrina Jerome APRN Primary Care Provider [phone] Reason for Referral * Consultation (Routine) - Closed Specialty Diagnoses / Procedures Referred By Ezequiel arita Referred To Contact Dermatology Diagnoses Sebaceous cyst Skin tags, anus or rectum Papule Sabrina Jerome APRN [address] [place] [address] [facility] [address] [place] [address] Referral ID Status Reason Start Date Expiration Date V isits Requested Visits Authorized [id number] Closed Consult, Test & Treat PCP Updated and/or Approved 01/02/2022 01/02/2023 12 12 Encounter Details Date Type Department Care Team (Latest Contact Info) Description 01/02/2022 Transcribe Orders eDH Incoming Referrals [phone] Sabrina Jerome APRN [address] [place], [place] [id number] Sebaceous cyst; Skin tags, anus or rectum; [...] skin documented in this encounter Care Teams Environmental Engineering Technician Relationship Specialty Start Date End Date Sabrina Jerome APRN PCP - General Family Medicine 01/02/22 documented as of this encounter
--- OUTSIDE RECORDS SUMMARY | 2024-07-28 15:11 | XMS_ITS | Encounter Summary ---
Author Organization [facility] Address [facility] [place] [address] Care Team Providers Care Waterworks Supervisor Name Role Phone Sabrina Jerome MACHINE LACER Primary Care Provider [phone] Reason for Referral * Consultation (Routine) - Closed Specialty Diagnoses / Procedures Referred By Contac t Referred To Contact Dermatology Diagnoses Pilar cyst of scalp Singh Bhatt MD [facility] [address] KAMRON [place] [address] Tara Choi, bowling or skating front desk clerk ID Status Reason Start Date Expiration Date V isits Requested Visits Authorized [id number] Closed Consult, Test & Treat 05/10/2022 05/10/2023 1 1 Reason for Visit * Consultation (Routine) - Closed Specialty Diagnoses / Procedures Referred By Contac t Referred To Contact Dermatology Diagnoses Sebaceous cyst Skin tags, anus or rectum Papule Sabrina Jerome, MACHINE LACER [address] [place] [address] [facility] D[facility]atology [address] [place] [address] Referral ID Status Reason Start Date Expiration Date V isits Requested Visits Authorized [id number] Closed Consult, Test & Treat PCP Updated and/or Approved 01/02/2022 01/02/2023 12 12 Encounter Details Date Type Department Care Team (Late st Contact Info) Description 05/10/2022 2:20 PM EDT Office Visit Dermatology at [facility] [address] [place] [phone] Singh Bhatt MD [facility] [address] KAMRON [place] [address] Pilar cyst of scalp; [place] [...] relevant family history N Social History 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 Chart routed to surgery confidential secretary for scheduling of excision. Figure 1 Photo(s) taken and charted with patient's verbal consent. Other: ??? N/A RTC: 1 year for FSE. Referral placed for Pilar Cyst Excision. []Note routed to confidential secretary [x]Recall placed in scheduling system []Appointment scheduled at checkout Scribe attestation: WALDEMAR Macario has performed the documentation for this encounter inthe presence of and acting as a scribe for Singh Bhatt MD. I performed the above scribed service and agree with the accuracy of the documentation in this encounter. Reviewed and signed by: Singh Bhatt MD Dermatology [facility] Patient seen and evaluated with staff configuration manager: Yan Lockett MD Department of Dermatology [facility] * Yan Lockett MD - [...] dysplasia documented in this encounter Care Teams Waterworks Supervisor Relationship Specialty Start Date End Date Sabrina Jerome APRN PCP - General Family Medicine 01/02/22 documented as of this encounter
--- OUTSIDE RECORDS SUMMARY | 2024-07-28 15:11 | XMS_ITS | Encounter Summary ---
Author Organization [facility] Address [address] [place] [address] Care Team Providers Care Roster Clerk Name Role Phone Unavailable Primary Care Provider Unavailabl e Encounter Details Date Type Department Care Team (Late st Contact Info) Description 05/22/2004 9:05 EST - 05/22/2004 11:59 EST Hospital Encounter [facility] - Other [address] [place] [address] Daniel Blum MD [address] [facility], [address] [place] [address] Discharge Disposition: Auto Discharge Social History Tobacco [...]
--- OUTSIDE RECORDS SUMMARY | 2024-07-28 15:11 | XMS_ITS | Encounter Summary ---
Author Organization [facility] Address [address] [place] [address] Care Team Providers Care Comic Writer Name Role Phone Hanane Pollock NP Primary Care Provider [phone] Encounter Details Date Type Department Care Team (Late st Contact Info) Description 01/09/2007 Before PRISM Converted Visit (Maple) [facility] - Maple conversion [address] [place] [address] Juli Franz MD Social History Tobacco Use [...] 1705 EST DIVISION OF INFECTIOUS DISEASE - [facility] PROGRESS/FOLLOWUP NOTE - 01/09/2007 DONNELL Calabrese presents [...] He did not follow up with the gearcase assembler yet and he denies any new neuromuscular [...] Juli Franz MD - DD Job ID: [id number] Doc ID: [id number] cc: [facility] - dd Job ID: [id number] Doc ID: [id number] cc: [facility] documented in this encounter Plan of Treatment Not on file documented as of this encounter Visit Diagnoses Not on filedocumented in this encounter Care Teams Comic Writer Relationship Specialty Start Date End Date Hanane Pollock NP [facility] [address] [place] [address] PCP - General 01/30/09 02/23/19 documented as of this encounter
--- OUTSIDE RECORDS SUMMARY | 2024-07-28 15:11 | XMS_ITS | Encounter Summary ---
Author Organization [facility] Address [address] [place] [address] Care Team Providers Care Curriculum Counselor Name Role Phone Hanane Pollock NP Primary Care Provider [phone] Encounter Details Date Type Department Care Team (Late st Contact Info) Description 04/20/2004 Results Only [facility] Dermatology [address]th [address] [address] Artur Blum MD [address] [place] [address], [address] [place] [phone] Social History Tobacco Use Types Packs/Day Years [...] ? KALEB CEDILLO ? Accession #: ? [id number] ? : ? 1970 (Age: 34) ??M [...] and entirely submitted in one cassette. ??(Dr. Leal-)/vj End of Report [facility] MANJAR[facility] 04/20/2004 04/21/2004 8:5 8 EDT us Artur Blum MD PATHOLOGY ORDERABLES Nupur rubio Result [facility] MANJARRE[facility] [address] [place] [address] documented in this encounter Visit Diagnoses Not on filedocumented in this encounter Care Teams Curriculum Counselor Relationship Specialty Start Date End Date Hanane Pollock NP [facility] [address] [place] [address] PCP - General 01/30/09 02/23/19 documented as of this encounter
--- OUTSIDE RECORDS SUMMARY | 2024-07-28 15:11 | XMS_ITS | Encounter Summary ---
Author Organization [facility] Address [address] [place] [address] Care Team Providers Care Dry Wall Sprayer Name Role Phone Hanane Pollock NP Primary Care Provider [phone] Encounter Details Date Type Department Care Team (Late st Contact Info) Description 02/19/2006 Before PRISM Converted Visit (Maple) [facility] - Maple conversion [address] [place] [address] Juli Franz MD Social History Tobacco Use [...] OF INFECTIOUS DISEASE PROGRESS/FOLLOWUP NOTE - 02/19/2006 [facility] SUBJECTIVE: Guan[place]ito presents for reevaluation of [...] Juli Franz MD P - Job ID: [id number] Document ID: [id number] cc: Hanane Pollock NP documented in this encounter Plan of Treatment Not on file documented as of this encounter Visit Diagnoses Not on filedocumented in this encounter Care Teams Dry Wall Sprayer Relationship Specialty Start Date End Date Hanane Pollock NP [facility] [address] [place] [address] PCP - General 01/30/09 02/23/19 documented as of this encounter
--- OUTSIDE RECORDS SUMMARY | 2024-07-28 15:11 | XMS_ITS | Encounter Summary ---
Author Organization [facility] Address [address] [place] [address] Care Team Providers Care Email Manager Name Role Phone Hanane Mccormack NP Primary Care Provider [phone] Encounter Details Date Type Department Care Team (Late st Contact Info) Description 12/01/2002 Results Only [facility] Radiology - [address] [address] Alissa Mas MD [address] [facility], [address] [place] [address] Social History Tobacco Use Types [...] ? KALEB CEDILLO ? Accession #: ? [id number] ? : ? 1970 (Age: 32) ??M ? Collect Date: ? 12/01/2002 ? Location: ? RAD ? Receive Date: ? 12/01/2002 ? Provider: ALISSA MAS MD Copy to: [employer] EXECUTIVE ? Addendum ? Date Ordered: ? 12/09/2002 [...] histologic features. Clinical correlation is essential. ??(Dr. Tomlinson)/[facility] Document reviewed and electronically [...] iron on the iron stained slide. ??(Dr. Brizuela)/[facility] Document reviewed and electronically signed by: Coty [...] is entirely submitted in one cassette. ??(Brando Dior)/[facility] End of Report [facility] 12/01/2002 12/01/2002 9:1 6 EDT us Alissa Mas MD PATHOLOGY ORDERABLES Final Result [facility] [address] [place] [address] documented in this encounter Visit Diagnoses Not on filedocumented in this encounter Care Teams Email Manager Relationship Specialty Start Date End Date Hanane Mccormack NP [facility] [address] [place] [address] PCP - General 01/30/09 02/23/19 documented as of this encounter
--- OUTSIDE RECORDS SUMMARY | 2024-07-28 15:11 | XMS_ITS | Encounter Summary ---
Author Organization [facility] [place] [address] Care Team Providers Care Manager Interface Name Role Phone Sabrina Jerome APRN Primary Care Provider [phone] Reason for Visit * Consultation (Routine) - Closed Specialty Diagnoses / Procedures Referred By Ezequiel arita Referred To Contact Maxillofacial Surgery Diagnoses Extraction of tooth [place] [address] [facility] Maxillo Surg [address] [place] [phone] Referral ID Status Reason Start Date Expiration Date V isits Requested Visits Authorized [id number] Closed Consult, Test & Treat 01/10/2023 01/10/2024 1 1 Encounter Details Date Type Department Care Team (Late st Contact Info) Description 02/25/2023 8:00 AM EDT Office Visit [place] [address] Merrill Krueger PA Oral frictional keratosis Social History Tobacco Use [...] history: Had biopsy 2019 was benign In [facility], unsure of the name of the practice [...] 06/14/2019 through Care Everywhere (Dr. Santino Lealwith [facility]) A. SOFT PALATE, LEFT, BIOPSY: - Squamous [...] about 1 cm posterior to the posterior rn peritoneal dialysis of the denture No appreciable LAD Neuro: [...] 8:30 AM This note may have incorporated [id number] technology and though reviewed typographical or syntax [...] tissues documented in this encounter Care Teams Manager Interface Relationship Specialty Start Date End Date Sabrina Jerome APRN PCP - General Family Medicine 01/02/22 documented as of this encounter
--- OUTSIDE RECORDS SUMMARY | 2024-07-28 15:11 | XMS_ITS | Encounter Summary ---
Author [facility] [place] [address] Care Team Providers Care Music Education Adjunct Professor Name Role Phone Sabrina Jerome APRN Primary Care Provider [phone] Encounter Details Date Type Department Care Team [...] on filedocumented in this encounter Care Teams Music Education Adjunct Professor Relationship Specialty Start Date End Date Sabrina Jerome APRN PCP - General Family Medicine 01/02/22 documented as of this encounter
--- OUTSIDE RECORDS SUMMARY | 2024-07-28 15:11 | XMS_ITS | Encounter Summary ---
Author Organization [facility] Address [address] [place] [address] Care Team Providers Care Bearing Ring Assembler Name Role Phone Unavailable Primary Care Provider Unavailabl e Encounter Details Date Type Department Care Team (Latest Contact Info) Description 12/01/2002 15:57 EDT Hospital Encounter [facility] - Other [address] [place] [address] Akhil Chapman MD Discharge Disposition: Auto Discharge [...]
--- OUTSIDE RECORDS SUMMARY | 2024-07-28 15:11 | XMS_ITS | Clinical Summary ---
Author Organization [facility] Address [facility] [place] [address] Care Team Providers Care Communication Signals Intelligence Name Role Phone Sabrina Jerome APRN Primary Care Provider [phone] Allergies Active Allergy Reactions Criticality Noted Date [...] year) with FIT yearly 1970 Sigmoidoscopy 1970 HIV screen 01/18/1986 Hepatitis C Screening 01/18/1986 Lipid Screening 01/18/1986 Hepatitis B vaccine (0-59 yrs) (1) 01/18/1987 Pneumococcal Vaccine: At-Risk 5-49yrs (1 of 2 - PCV) 0 01/18/1987 Tetanus/Diphtheria/Pertussis Vaccines (1 - Tdap) 01/18 Zoster vaccine (1 of 2) 01/18/2018 Advance Directive 01/18/2023 Covid-19 Vaccine (1 - season) 2024 Influenza (Flu) vaccine (1 o f 1 - Influenza standard series) 03/14/2024 Care Teams Communication Signals Intelligence Relationship Specialty Start Date End Date Sabrina Jerome, ERICA PCP - General Family Medicine 01/02/22
--- OUTSIDE RECORDS SUMMARY | 2024-07-28 15:11 | XMS_ITS | Encounter Summary ---
Author Organization [facility] Address [address] [place] [address] Care Team Providers Care Assembly Stock Supervisor Name Role Phone Hanane Pollock NP Primary Care Provider [phone] Encounter Details Date Type Department Care Team (Late st Contact Info) Description 04/30/2006 Before PRISM Converted Visit (Maple) [facility] - Maple conversion [address] [place] [address] Juli Franz MD Social History Tobacco Use [...] 1714 EST DIVISION OF INFECTIOUS DISEASE - [facility] PROGRESS/FOLLOWUP NOTE - 04/30/2006 Comprehensive Care [...] Nelly Franz MD A - Job ID: [id number] Document ID: [id number] cc: Hanane Pollock NP documented in this encounter Plan of Treatment Not on file documented as of this encounter Visit Diagnoses Not on filedocumented in this encounter Care Teams Assembly Stock Supervisor Relationship Specialty Start Date End Date Hanane Pollock NP [facility] [address] [place] [address] PCP - General 01/30/09 02/23/19 documented as of this encounter
--- OUTSIDE RECORDS SUMMARY | 2024-07-28 15:11 | XMS_ITS | Encounter Summary ---
Author Organization [facility] Address [address] [place] [address] Care Team Providers Care Flowers Salesperson Name Role Phone Hanane Pollock NP Primary Care Provider [phone] Encounter Details Date Type Department Care Team (Late st Contact Info) Description 04/21/2001 Results Only [facility] - Maple conversion [address] [place] [address] Jocelin, MD Luz Social History Tobacco Use Types Packs/Day Years [...] ?? infection is suspected. ??Test performed by [facility], [place], [place] [facility] 04/21/2001 11:3 2 EDT 04/21/2001 11:46 EDT Luz Monreal MD IMMUNOLOGY AND SEROLOGY ORDERA BLES Final Result [facility] [address] [place] [address] * SYPHILIS SERO (RPR) (04/21/2001 11:32 EDT) Syphilis Sero (RPR) NONREACT. NR Dils [facility] 04/21/2001 11:3 2 EDT 04/21/2001 11:46 EDT Luz Monreal MD IMMUNOLOGY AND SEROLOGY ORDERA BLES Final Result Performing Organization Address [facility] de Phone Number [facility] [address] [place] [address] * (ABNORMAL) IMMUNODEFICIENCY PANEL (04/21/2001 11:32 EDT) Pathologist [facility] [place] CD3 87(H) 67 - 84 % [facility] CD4 2(L) 40 - 65 % [facility] CD8 83(H) 10 - 38 % [facility] Absolute CD4 13(L) 702 - 1791 per UL [facility] Comment:The absolute CD4 cou nt was calculated using the manual differential 04/21/2001 11:3 2 EDT 04/21/2001 11:46 EDT Luz Monreal MD IMMUNOLOGY AND SEROLOGY ORDERA BLES Final Result Performing Organization Address [facility] de Phone Number [facility] [address] [place] [address] * HIV-1 (WESTERN BLOT) (04/21/2001 11:32 EDT) [facility] HIV-1 Western Blot Positive. ??Antibodies reacted with the following antigen bands: p24, gp41, ?? p51, p55, p65, gp120, gp160 Test performed by [facility] [place], [place] BRAD MANJARREZ HIV-1 Abs-EIA REACTIVE [facility] 04/21/2001 11:3 2 EDT 04/21/2001 11:46 EDT Result [facility] Luz Monreal MD HISTORICAL LAB FOR SQ LOAD Fin al Result Performing Organization Address [facility] de Phone Number [facility] [address] [place] [address] * QUANTITATIVE HIV POLYMERASE CHAIN REACTION (04/21/2001 11:32 EDT) Pathologist [facility] [place] HIV1 RNA 49,460 Unit: copies/mL ??(Note) This test is performed pursuant to a license agreement with ? [employer] ? TEST PERFORMED OR REFERRED BY [facility] ? [facility] ? [address] ? [place], [place] ??[address] ? [facility] Specimen Source Plasma [facility] 04/21/2001 11:3 2 EDT 04/21/2001 11:46 EDT Luz Monreal MD CHEMISTRY & BLOOD GAS ORDERABL ES Final Result Performing Organization Address [facility] de Phone Number [facility] [address] [place] [address] * (ABNORMAL) HIV ANTIBODY (JOSEFINA) (04/21/2001 11:32 EDT) Pathologist [facility] [place] HIV 1/2 Antibody REACTIVE Sent to [facility], [place], [place] for further testing.(A) NR [facility] 04/21/2001 11:3 2 EDT 04/21/2001 11:46 EDT Luz Monreal MD IMMUNOLOGY AND SEROLOGY ORDERA BLES Final Result Performing Organization Address [facility] de Phone Number [facility] [address] [place] [address] * (ABNORMAL) HEPATITIS C ANTIBODY (04/21/2001 11:32 EDT) Hepatitis C Ab Pos Indicates recent or remote infection.( AA) [facility] 04/21/2001 11:3 2 EDT 04/21/2001 11:46 EDT Luz Monreal MD CHEMISTRY & BLOOD GAS ORDERABL ES Final Result Performing Organization Address [facility] de Phone Number [facility] [address] [place] [address] * (ABNORMAL) HEPATITIS B CORE ANTIBODY (04/21/2001 11:32 EDT) Hep B Core Ab Pos Indicates either remote past infection OR window period between disappearance of HBsAg and appearance of HBsAb.(AA) [facility] 04/21/2001 11:3 2 EDT 04/21/2001 11:46 EDT Luz Monreal MD CHEMISTRY & BLOOD GAS ORDERABL ES Final Result Performing Organization Address [facility] de Phone Number [facility] [address] [place] [address] * (ABNORMAL) HEPATITIS B SURFACE ANTIGEN CONFIRMATION (04/21/2001 11:32 EDT) Hepatitis B Surface Antigen Confirmation Pos Positive, confirmed by inhibition(AA ) [facility] 04/21/2001 11:3 2 EDT 04/21/2001 11:46 EDT Luz Monreal MD CHEMISTRY & BLOOD GAS ORDERABL ES Final Result Performing Organization Address [facility] de Phone Number [facility] [address] [place] [address] * HEPATITIS B SURFACE ANTIGEN (04/21/2001 11:32 EDT) Hepatitis B Surface Ag Positive screen, confirmation to follow. [facility] 04/21/2001 11:3 2 EDT 04/21/2001 11:46 EDT Luz Monreal MD CHEMISTRY & BLOOD GAS ORDERABL ES Final Result Performing Organization Address [facility] de Phone Number [facility] [address] [place] [address] * HEPATITIS B SURFACE ANTIBODY (04/21/2001 11:32 EDT) Hepatitis B Surface Ab Neg [facility] 04/21/2001 11:3 2 EDT 04/21/2001 11:46 EDT Luz Monreal MD CHEMISTRY & BLOOD GAS ORDERABL ES Final Result Performing Organization Address [facility] de Phone Number [facility] [address] [place] [address] * HEPATITIS A TOTAL ANTIBODY (04/21/2001 11:32 EDT) Hep A Antibody Neg [facility] 04/21/2001 11:3 2 EDT 04/21/2001 11:46 EDT us Luz Monreal MD CHEMISTRY & BLOOD GAS ORDERABL ES Final Result Performing Organization Address City/[facility]/ZIP Co de Phone Number [facility] [address] [place] [address] * (ABNORMAL) COMPREHENSIVE METABOLIC PANEL (04/21/2001 11:32 EDT) Pathologist [facility] [place] Potassium 3.8 3.5 - 5.0 mEq/L [facility] Sodium 141 136 - 145 mEq/L [facility] Chloride 104 96 - 110 mEq/L [facility] CO2 27 24 - 30 [...] 11:3 2 EDT 04/21/2001 11:46 EDT us Luz Monreal MD CHEMISTRY & BLOOD GAS ORDERABL ES Final Result Performing Organization Address [facility] de Phone Number [facility] [address] [place] [address] * (ABNORMAL) HEMAGRAM & DIFF (04/21/2001 11:32 EDT) WBC 2.67(L) 4.0 - 10.4 K/cmm [facility]AS [...] K/cmm [facility] RBC Morphology [facility] Type of Diff: Manual [facility] 04/21/2001 11:3 2 EDT 04/21/2001 11:46 EDT Luz Monreal MD HISTORICAL LAB FOR SQ LOAD Fin al Result [facility] [address] [place] [address] documented in this encounter Visit Diagnoses Not on filedocumented in this encounter Care Teams Flowers Salesperson Relationship Specialty Start Date End Date Hanane Pollock NP [facility] [address] [place] [address] PCP - General 01/30/09 02/23/19 documented as of this encounter
--- OUTSIDE RECORDS SUMMARY | 2024-07-28 15:11 | XMS_ITS | Encounter Summary ---
Author Organization [facility] Address [address] [place] [address] Care Team Providers Care Smocking Machine Operator Name Role Phone Hanane Pollock NP Primary Care Provider [phone] Encounter Details Date Type Department Care Team (Late st Contact Info) Description 01/04/2005 Before PRISM Converted Visit (Maple) [facility] - Maple conversion [address] [place] [address] Juli Franz MD Social History Tobacco Use [...] done with electrolytes, liver panel, creatinine, CBC, [id number] and ultrasensitive viral load. 2. Cryptococcal meningitis. [...] MD P - Job ID: Document ID: [id number] cc: SOM Pollock, [facility] Care [facility], [facility], [facility] [address] [place] [address]* documented in this encounter Plan of Treatment Not on file documented as of this encounter Visit Diagnoses Not on filedocumented in this encounter Care Teams Smocking Machine Operator Relationship Specialty Start Date End Date Hanane Pollock NP [facility] [address] [place], [place] [id number] PCP - General 01/30/09 02/23/19 documented as of this encounter
--- OUTSIDE RECORDS SUMMARY | 2024-07-28 15:11 | XMS_ITS | Encounter Summary ---
Author Organization [facility] [place] [address] Care Team Providers Care Defense Attorney Name Role Phone Sabrina Jerome APRN Primary Care Provider [phone] Encounter Details Date Type Department Care Team [...] on filedocumented in this encounter Care Teams Defense Attorney Relationship Specialty Start Date End Date Sabrina Jerome APRN PCP - General Family Medicine 01/02/22 documented as of this encounter
--- OUTSIDE RECORDS SUMMARY | 2024-07-28 15:11 | XMS_ITS | Encounter Summary ---
Author Organization [facility] Address [address] [place] [address] Care Team Providers Care Actuarial Trainee Name Role Phone Hanane oPllock NP Primary Care Provider [phone] Encounter Details Date Type Department Care Team (Late st Contact Info) Description 08/14/2005 Before PRISM Converted Visit (Maple) [facility] - Maple conversion [address] [place] [address] Juli Franz MD Social History Tobacco Use [...] Signed by Juli Franz MD 09/01/2005 13:48 AMSandy Ponce MD Juli Franz MD - Juli Franz MD P - MR Job ID: [id number] Document ID: [id number] cc: [facility] Hnaane Pollock NP documented in this encounter Plan of Treatment Not on file documented as of this encounter Visit Diagnoses Not on filedocumented in this encounter Care Teams Actuarial Trainee Relationship Specialty Start Date End Date Hanane Pollock NP [facility] [address] [place] [address] PCP - General 01/30/09 02/23/19 documented as of this encounter
--- OUTSIDE RECORDS SUMMARY | 2024-07-28 15:11 | XMS_ITS | Encounter Summary ---
Author Organization [facility] Address [facility] [place] [address] Care Team Providers Care Sap Portal Architect Name Role Phone Sabrina Jerome APRN Primary Care Provider [phone] Reason for Visit * Reason Comments Procedure * Consultation (Routine) - Closed Specialty Diagnoses / Procedures Referred By Contsue t Referred To Contact Dermatology Diagnoses Pilar cyst of scalp Singh Bhatt MD [facility] [address] [address] Tara Choi, dam worker ID Status Reason Start Date Expiration Date V isits Requested Visits Authorized [id number] Closed Consult, Test & Treat 05/10/2022 05/10/2023 1 1 Encounter Details Date Type Department Care Team (Latest Contact Info) Description 06/25/2022 3:15 PM EST Procedure visit Dermatology at [facility] [address] [place] [address] Giovanni Vaughan MD [address] [place] [address] Pilar cyst of scalp Social History Tobacco [...] and signed by: Soumya Schulz MD Dermatology [facility] Patient seen and evaluated with staff keyseater operator: Giovanni Vaughan MD Department of Dermatology [facility] * Soumya Schulz MD - 06/25/2022 3:15 [...] Report (06/25/2022 3:49 PM EST) Final Diagnosis [id number] ? Location: [facility] The signing pathologist has (i) examined the relevant preparation(s) for the specimen(s) and (ii) rendered or confirmed the diagnosis(es). . 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 Dermatopathologist Performed at: ??-[facility] Dept. of Pathology, [place] [id number] Safety Trainer: Suyapa Joseph MD, FCAP, ??CLIA Certificate: [id number] SPECIMEN(S) SUBMITTED A - left temporal scalp, [...] labeled A1-A5. ??sns 07/01/2022 8:45 AM EST [facility] EPIDERMOID CYST / Unknown 06/25/2022 3:49 PM EST 06/25/2022 3:49 PM EST Soumya Schulz MD PATHOLOGY/CYTOLOGY [facility] [place] [address] [facility] [place] [address] * Specimen to Pathology (06/25/2022 3:49 PM EST) AP Specimen 06/25/2022 3:49 PM EST 06/25/2022 3:49 PM EST Narrative [facility] - 06/25/2022 3:49 PM EST Specimen requisition ordered. ??Separate Pathology report to follow Giovanni Vaughan MD PATHOLOGY/CYTOLOGY [facility] [address] documented in this encounter Visit Diagnoses Diagnosis Pilar cyst of scalp documented in this encounter Care Teams Sap Portal Architect Relationship Specialty Start Date End Date Sabrina Jerome, ERICA PCP - General Family Medicine 01/02/22 documented as of this encounter
--- OUTSIDE RECORDS SUMMARY | 2024-07-28 15:11 | XMS_ITS ---
Author Organization [facility] Address [address] [place] [address] Care Team Providers Care Weatherization Crew Leader Name Role Phone Sabrina Jerome TAILING HAND Primary Care Provider [phone] HIV Status:Enrolled (Active) Start date:08/21/2023 Enrollment date:08/22/2023 Enrollment reason:Referred by provider Current support & services provided:Clinical Management, Refill Management Linked medications:emtricitab/rilpiviri/tenof ala (Active), raltegravir potassium (Active) Linked problems:Acquired immunodeficiency syndrome ([facility]) (Active) Case Team Name Relationship Phone Frankie Mitchell [facility] Pharmacist(Responsible Staff) Continued Care and Services Coordination
[2024-07-28 15:22] LABS: ESR < 1 mm/hr (0-20)
[2024-07-28 15:34] LABS: C-Reactive Protein < 0.50 mg/dL (<or=0.5); Uric Acid 6.2 mg/dL (3.5-7.2)
== END 2024-07-28 15:06 | disposition home or self-care (01) ==
LOC: NCHCN 15:05
PROVIDERS: PCP Family Medicine; Visit Provider Physician Assistant Medical
DX: M25.561 Pain in right knee (principal)
CPT/HCPCS: 85652; 84550; 86140

== ENCOUNTER 2024-08-03 08:43 | Outpatient (CLI) | payer MEDICARE, MEDICAID, SELFPAY ==
--- NOTE | 2024-08-03 12:57 | DI.RAD_ITS ---
Exam(s) XR KNEE LT 3V AP,LAT,LES EXAM: XR KNEE LT 3V AP,LAT,LES CLINICAL HISTORY: PAIN LEFT KNEE M25.562. TECHNIQUE: 2D digital imaging was performed. Three views. COMPARISON: CR XR KNEE RT 3V AP,LAT,LES from 05/02/2022 FINDINGS: BONES: No acute fracture is present. No bony destructive lesion is seen. JOINTS: The knee is normally aligned. No joint effusion is seen. The joint spaces are maintained. Minimal spurring at the articular aspect of the patella. SOFT TISSUE: Normal. IMPRESSION: Mild patellofemoral degenerative changes. DATA REPOSITORY: RADIATION DOSE DELIVERED:
== END 2024-08-03 09:03 ==
LOC: DI 08:44
PROVIDERS: PCP Family Medicine; Visit Provider Physician Assistant Medical
DX: M25.562 Pain in left knee (principal)
CPT/HCPCS: 73562

== ENCOUNTER 2024-10-04 15:22 | Outpatient (CLI) | payer MEDICARE, MEDICAID, SELFPAY ==
--- NOTE | 2024-10-04 08:00 | DI.RAD_ITS ---
Exam(s) XR KNEES MERCHANT ONLY EXAM: XR KNEES MERCHANT ONLY CLINICAL HISTORY: bilateral knee pain. TECHNIQUE: 2D digital imaging was performed. COMPARISON: CR XR KNEE LT 3V AP,LAT,LES from 08/03/2024 FINDINGS: Single merchant's view The patellofemoral compartment both knees exhibits normal joint space. No osteophytes. No osteochon dral defects nor degenerative subarticular cysts. No abnormal patellar tracking. IMPRESSION: No significant osseous findings on this merchant's view DATA REPOSITORY: RADIATION DOSE DELIVERED:
== END 2024-10-04 15:23 | disposition home or self-care (01) ==
LOC: DIORS 15:22
PROVIDERS: PCP Family Medicine; Visit Provider Physician Assistant
DX: M25.561 Pain in right knee (principal); M25.562 Pain in left knee; M23.91 Unspecified internal derangement of right knee; M23.92 Unspecified internal derangement of left knee; I10 Essential (primary) hypertension
CPT/HCPCS: 73565; 99213

== ENCOUNTER 2024-11-01 09:57 | Outpatient (CLI) | payer MEDICARE, MEDICAID, SELFPAY ==
[2024-11-01 15:35] LABS: ALT 49 U/L (16-63); AST 22 U/L (15-37); Albumin 4.4 g/dL (3.4-5.0); Alkaline Phosphatase 68 U/L (46-116); Anion Gap 7.6 mmol/L (3-11); BUN 21 mg/dL (7-18); Bilirubin, Total 0.9 mg/dL (0.2-1.0); CO2 27.4 mmol/L (21.0-32.0); CREATININE 1.2 mg/dL (0.70-1.30); Calcium 9.3 mg/dL (8.5-10.1); Chloride 107 mmol/L (98-107); Estimated GFR 70.98 (mL/min/1.73m2); Glucose 106 mg/dL (74-106); Potassium 4.3 mmol/L (3.5-5.1); Sodium 142 mmol/L (136-145); Total Protein 7.2 g/dL (6.4-8.2)
[2024-11-04 12:43] LABS: HIV 1 RNA Qualitative Undetected Copys/mL (Undetected)
== END 2024-11-01 09:58 | disposition home or self-care (01) ==
LOC: LBO 09:58
PROVIDERS: PCP Family Medicine; Visit Provider Nurse Practitioner Family
DX: B20 Human immunodeficiency virus [HIV] disease (principal); Z79.899 Other long term (current) drug therapy
CPT/HCPCS: 36415; 80053; 87536

== ENCOUNTER 2024-11-16 13:06 | Outpatient (REF) | payer MEDICARE, MEDICAID, SELFPAY ==
[2024-11-16 17:40] LABS: BUN 22 mg/dL (7-18); CREATININE 0.8 mg/dL (0.70-1.30); Calcium 9.2 mg/dL (8.5-10.1); Calculated LDL 58 mg/dL (<100); Chloride 105 mmol/L (98-107); Cholesterol 113 mg/dL (<200); Estimated GFR 103.87 (mL/min/1.73m2); Glucose 107 mg/dL (74-106); HDL Cholesterol 40 mg/dL (>or=40); Potassium 4.6 mmol/L (3.5-5.1); Sodium 140 mmol/L (136-145); Triglyceride 79 mg/dL (<150)
== END 2024-11-16 13:07 | disposition home or self-care (01) ==
LOC: NCHCN 13:06
PROVIDERS: PCP Family Medicine; Visit Provider Physician Assistant Medical
DX: I10 Essential (primary) hypertension (principal); E78.5 Hyperlipidemia, unspecified
CPT/HCPCS: 80048; 80061

== ENCOUNTER 2024-11-24 09:52 | Outpatient (CLI) | payer MEDICARE, MEDICAID, SELFPAY ==
--- NOTE | 2024-11-24 10:16 | DI.RAD_ITS ---
Exam(s) XR LUMBAR SPINE COMPLETE EXAM: XR LUMBAR SPINE COMPLETE CLINICAL HISTORY: LBP, M54.50, lumbar pain, evaluate pathology. TECHNIQUE: 2D digital imaging was performed of the lumbar spine. Five images were obtained. AP, la teral, right oblique, left oblique and L5-S1 spot views were obtained. COMPARISON: CR LUMBAR SPINE COMPLETE from 11/14/2010 CR XR DEXA BONE DENSITY W/WO JOB from 12/05/2023 FINDINGS: BONES: No fracture or destructive lesion. There is small endplate osteophytes at L5-S1. No facet hype rtrophy identified. DISKS: There is disc space narrowing at L5-S1. ALIGNMENT: Lumbar spinal alignment is within normal limits. No spondylolysis or spondylolisthesis. SOFT TISSUE: Normal. IMPRESSION: Degenerative changes seen at L5-S1. DATA REPOSITORY: RADIATION DOSE DELIVERED:
== END 2024-11-24 10:12 ==
LOC: DI 09:54
PROVIDERS: PCP Family Medicine; Visit Provider Nurse Practitioner Family
DX: M54.50 Low back pain, unspecified (principal)
CPT/HCPCS: 72110

== ENCOUNTER 2024-12-02 02:40 | Outpatient (CLI) | payer MEDICARE, MEDICAID, SELFPAY ==
--- NOTE | 2024-12-02 | DI.CTLCSR_ITS ---
Exam(s) CT CHEST LUNG CANCER SCREEN EXAM: CT CHEST LUNG CANCER SCREEN CLINICAL HISTORY: Nicotine dependence, cigarettes, F17.210; screening for lung cancer TECHNIQUE: Imaging Protocol: Axial computed tomography images with coronal and sagittal reformatted images were created and reviewed. Lung Computer Aided Detection (CAD) was utilized. COMPARISON: CT CT CHEST LUNG CANCER SCREEN from 10/17/[address] CHEST LUNG CANCER SCREEN from 10/28/2023 FINDINGS: Tracheobronchial tree: Patent where visualized. No bronchiectasis. Pulmonary parenchyma: No consolidation or dominant measurable mass. There is unchanged scarring seen in the lung apices, right greater than left. Lung Nodules: There is a stable 6 mm nodule in the lateral aspect of the right upper lobe. There are few tiny are stable nodule seen. There are no new pulmonary nodules present. Mediastinum and Adriana: No dominant adenopathy or fluid collection. The esophagus is unremarkable. Thyroid gland: Unremarkable. Lymph nodes: Unremarkable. Pleura: No effusion or pneumothorax. Heart: The heart is not dilated. No coronary artery calcifications are seen. No pericardial effusion . Aorta: Thoracic aorta non-dilated. Upper abdomen: Unremarkable. Soft Tissues: Unremarkable. Bones: Within normal limits. There is a stable T6 compression deformity. IMPRESSION: No new pulmonary nodules. Stable pulmonary nodules. Lung RADS Cat 2 - Benign Appearance / Behavior: Nodules with a very low likelihood of becoming a clin ically active cancer due to size or lack of growth Lung-RADS 1.0 CATEGORIES: Category 0 - Prior chest CT exam(s) being located for comparison. Category 1 - Annual screening in 12 months. No nodules or definitely benign nodules. Category 2 - Annual screening in 12 months. Benign appearance. Nodules with low likelihood of becomin g active cancer. Category 3 - 6-month follow-up. Probably benign. Short-term follow-up suggested. Nodules with low lik elihood of becoming active cancer. Category 4A - 3-month follow-up and CT/PET if >8 mm in size. Suspicious finding. Findings which requi re additional testing. Category 4B - Findings which require additional testing and tissue sampling. Suspicious finding. Category 4X - Category 3 or 4 nodules with additional features or imaging findings that increases the suspicion of malignancy. Modifier S- Potentially clinically significant finding. (Non lung cancer) RADIATION DOSE DELIVERED: 42.35mGy.cm Total DLP 42.35mGy.cmTotal DLP DATA REPOSITORY: All CT scans at this facility are submitted to the National Radiology Data Registry (NRDR) Dose Index Registry (DIR) with the [employer] (ACR). RADIATION OPTIMIZATION: All CT scans at this facility use at least one of these dose optimization te chniques: automated exposure control; mA and/or kV adjustment per patient size (includes targeted exa ms where dose is matched to clinical indication); or iterative reconstruction.
== END 2024-12-02 03:00 ==
LOC: DI 02:40
PROVIDERS: PCP Family Medicine; Visit Provider Physician Assistant Medical
DX: F17.210 Nicotine dependence, cigarettes, uncomplicated (principal); Z12.2 Encounter for screening for malignant neoplasm of respiratory organs
CPT/HCPCS: 71271